=== PATIENT | female | born 1960 | race Caucasian/White ===

== ENCOUNTER 2023-01-11 07:43 | Day surgery (SDC) | payer BC, SELFPAY ==
[2023-01-11 08:13] VITALS: BP 158/75; PULSE 86; RESP 16; TEMP 36.1; O2SAT 95; BMI 33.3
[2023-01-11] MEDS: LACTATED RINGER'S SOLUTION 1,000 ML 50 ML IV (08:30)
[2023-01-11 09:06] VITALS: BP 94/54; PULSE 91; RESP 18; TEMP 36.6; O2SAT 96
--- NOTE | 2023-01-11 09:07 | OP_ITS ---
OPERATION DATE: ??01/11/2023 PREOPERATIVE DIAGNOSIS:? Colorectal screening. POSTOPERATIVE DIAGNOSIS:? Diverticulosis throughout the colon. PROCEDURE:? Colonoscopy to cecum. SURGEON:? Salazar Muniz M.D. ANESTHESIA:? Monitored anesthesia care. ESTIMATED BLOOD LOSS:? Zero. INDICATIONS AND CONSENT:? Patient is a 62-year-old female presents for colorectal screening.? Indications, risks, benefits, alternatives of proceeding with colonoscopy were explained extensively to the patient, including the risks of bleeding, colon perforation or anesthetic complications.? All of her questions were answered.? Informed consent was obtained. PROCEDURE:? Patient brought to the operating room, placed in the left lateral decubitus position.? Monitored anesthesia care was provided.? Rectal exam was performed which showed no masses or blood.? The scope was inserted into the anal canal.? Under direct visualization was advanced.? With the aid of abdominal compression, it was advanced to the cecum where cecal markings were clearly identified.? Upon withdrawal of the scope, mucosal surfaces were carefully examined. ?There was noted to be a good prep.? There were no mass lesions or polyps.? No inflammatory changes or ulcerations.? There was diverticulosis throughout the colon, including the right colon, more prominent in the sigmoid.? The scope was retroflexed in the anal canal.? There was no significant hemorrhoidal disease.? Scope was then withdrawn.? Patient tolerated procedure well, was sent to recovery room in good condition. f/u screening colonoscopy in 10 years. CC:? Patient?s family physician [facility]
[2023-01-11 09:21] VITALS: BP 117/63; PULSE 83; RESP 16; TEMP 36.3; O2SAT 96
[2023-01-11 09:36] VITALS: BP 120/60; PULSE 74; RESP 16; TEMP 36.4; O2SAT 97
== END 2023-01-11 09:53 | disposition home or self-care (01) ==
PROVIDERS: PCP Internal Medicine; Visit Provider Surgery
PROC: (CPT 45378; principal; 2023-01-11 09:00)
DX: Z12.11 Encounter for screening for malignant neoplasm of colon (principal); I10 Essential (primary) hypertension; E78.5 Hyperlipidemia, unspecified; Z80.0 Family history of malignant neoplasm of digestive organs; E11.9 Type 2 diabetes mellitus without complications; C50.911 Malignant neoplasm of unspecified site of right female breast; Z79.899 Other long term (current) drug therapy; K57.30 Diverticulosis of large intestine without perforation or abscess without bleeding
CPT/HCPCS: 45378; J2704

== ENCOUNTER 2023-01-26 12:39 | Emergency (ER) | payer BC, SELFPAY ==
[2023-01-26 12:45] VITALS: BP 154/80; PULSE 94; RESP 18; TEMP 36.6; O2SAT 97; BMI 33.0
--- NOTE | 2023-01-26 12:49 | XR_ITS ---
[address] [address] Patient Name: PRICE CACERES MRN: [id number] date: 1960 Sex: F Assigned Patient Location: ER Current Patient Location: ER Accession/Order Number: [id number] Exam Date: 01/26/2023 13:10 Report Date: 01/26/2023 13:37 At the request of: KOREY HIDALGO Procedure: XR ankle LT min 3V EXAM TYPE: XR ankle LT min 3V, XR foot LT min 3V EXAM DATE AND TIME: 01/26/2023 1:10 PM EDT INDICATION: Left lateral foot pain after inversion injury. COMPARISON: Radiographs of the left ankle 08/25/2020 TECHNIQUE: 3 views of the left ankle 3 views of the left foot FINDINGS: Fixation hardware distal tibia and fibula without evidence of hardware failure. Well-corticated calcifications adjacent to the medial malleolus. No ankle effusion. Achilles enthesophyte. Nondisplaced fracture base of the fifth metatarsal. Sclerosis osteophytosis with mild expansion head of the first metatarsal. Mild hallux valgus deformity. XR/XR ankle LT min 3V IMPRESSION: 1. Nondisplaced fracture base of the fifth metatarsal. 2. Hallux valgus deformity with bunion formation. Electronically authenticated by: RAMIREZ CRUM Date: 01/26/2023 13:37
--- NOTE | 2023-01-26 12:49 | XR_ITS ---
[address] [address] Patient Name: PRICE CACERES MRN: [id number] date: 1960 Sex: F Assigned Patient Location: ER Current Patient Location: ER Accession/Order Number: [id number] Exam Date: 01/26/2023 13:10 Report Date: 01/26/2023 13:37 At the request of: KOREY HIDALGO Procedure: XR foot LT min 3V EXAM TYPE: XR ankle LT min 3V, XR foot LT min 3V EXAM DATE AND TIME: 01/26/2023 1:10 PM EDT INDICATION: Left lateral foot pain after inversion injury. COMPARISON: Radiographs of the left ankle 08/25/2020 TECHNIQUE: 3 views of the left ankle 3 views of the left foot FINDINGS: Fixation hardware distal tibia and fibula without evidence of hardware failure. Well-corticated calcifications adjacent to the medial malleolus. No ankle effusion. Achilles enthesophyte. Nondisplaced fracture base of the fifth metatarsal. Sclerosis osteophytosis with mild expansion head of the first metatarsal. Mild hallux valgus deformity. XR/XR foot LT min 3V IMPRESSION: 1. Nondisplaced fracture base of the fifth metatarsal. 2. Hallux valgus deformity with bunion formation. Electronically authenticated by: RAMIREZ CRUM Date: 01/26/2023 13:37
--- NOTE | 2023-01-26 14:30 | ED.LOWEXI1 ---
HPI - Extremity Injury (Lower) General Chief Complaint: Extremity Injury, Lower Stated Complaint: LOWER EXTREMITY INJURY LEFT FOOT Time Seen by Provider: 01/26/23 12:47 Source: patient Mode of arrival: walk-in Limitations: no limitations History of Present Illness HPI Narrative: patient is a 62-year-old female who presents to the emergency department for the evaluation of an injury to the left foot. She inverted her left foot just prior to arrival and felt a pop over the left 5th metatarsal. She had no other associated injuries or falls. No medications taken prior to arrival. She does have a history of tibia-fibula fracture to the lower leg over a year ago that was surgically fixed with hardware. She denies any pain to the ankle or lower leg. Related Data Home Medications Medication Instructions Recorded Confirmed amlodipine 5 mg tablet 5 mg PO DAILY 01/11/23 01/11/23 atorvastatin 40 mg tablet 40 mg PO DAILY 01/11/23 01/11/23 benazepril 40 mg tablet 40 mg PO DAILY 01/11/23 01/11/23 hydrochlorothiazide 25 mg tablet 25 mg PO DAILY 01/11/23 01/11/23 letrozole 2.5 mg tablet 2.5 mg PO Q24H 01/11/23 01/11/23 Previous Rx's Medication Instructions Recorded hydrocodone 5 mg-acetaminophen 325 1 tab PO Q6H PRN pain #12 tabs 01/26/23 mg tablet Allergies Allergy/AdvReac Type Severity Reaction Status Date / Time Sulfa (Sulfonamide Allergy Hives Verified 01/02/23 11:32 Antibiotics) Review of Systems ROS Constitutional Denies: fever or chills Cardiovascular Denies: chest pain Respiratory Denies: shortness of breath or cough Gastrointestinal Denies: abdominal pain, nausea or vomiting Musculoskeletal Reports: extremity pain; Denies: back pain or neck pain Neurological Denies: headache PFSH PFSH Medical History (Updated 01/26/23 @ 14:13 by ASIA Lancaster) Surgical History (Updated 01/02/23 @ 11:53 by Alaina Granados NP) (06/04/19) (02/22/21) Family History (Updated 01/02/23 @ 11:49 by Alaina Granados NP) Other Family history of breast cancer Family history of colon cancer Family history of diabetes mellitus Family history of hypertension Family history of myocardial infarction Social History Within the past year, how often did you have a drink containing alcohol: monthly or less Smoking status: Never smoker Non-prescribed substance use: denies use Highest level of school completed/degree received: high school graduate Exam Narrative Exam Narrative: Gen.: Awake, alert, in no distress Head: Normocephalic, atraumatic ENT: Moist mucous membranes Respiratory: No respiratory distress Extremities: Moves extremities equally, tenderness and a small area of edema noted over the base of the left 5th metatarsal. Normal flexion and extension of the toes of the left foot. 2+ left DP pulse. No bony tenderness of the left ankle or tibia. Psych: Normal mood and affect Neuro: No focal neuro deficit Skin: Warm, dry, intact Constitutional Vital Signs, click to edit/add: Last Vital Signs Temp 97.8 F 01/26/23 12:45 Pulse 94 H 01/26/23 12:45 Resp 18 01/26/23 12:45 BP 154/80 H 01/26/23 12:45 Pulse Ox 97 01/26/23 12:45 O2 Del Method Room Air 01/26/23 12:45 Course Vital Signs Vital signs: Vital Signs Temperature 97.8 F 01/26/23 12:45 Pulse Rate 94 H 01/26/23 12:45 Respiratory Rate 18 01/26/23 12:45 Blood Pressure 154/80 H 01/26/23 12:45 Pulse Oximetry 97 01/26/23 12:45 Oxygen Delivery Method Room Air 01/26/23 12:45 Temperature 97.8 F 01/26/23 12:45 Pulse Rate 94 H 01/26/23 12:45 Respiratory Rate 18 01/26/23 12:45 Blood Pressure 154/80 H 01/26/23 12:45 Pulse Oximetry 97 01/26/23 12:45 Oxygen Delivery Method Room Air 01/26/23 12:45 MDM - Extremity Injury (Lower) MDM Narrative Medical decision making narrative: x-rays of the left foot and ankle show nondisplaced fracture at the base of the left 5th metatarsal. Patient placed in an [place] wrap and postop shoe. The fracture appears to be an avulsion, patient can be weightbearing as tolerated. She declined pain medication in the emergency department. She is neurovascularly intact pre-and post hardware application. Rest, ice, elevate. Follow-up with Dr. Aleman and return to the Emergency Room if symptoms change or worsen patient has a cane with her and has crutches at home. She was given a prescription of [place] as needed. Medical Records Attestation: I reviewed the patient's medical records. Discharge Plan Discharge Chief Complaint: Extremity Injury, Lower Clinical Impression: Closed fracture of fifth metatarsal bone of left foot Patient Disposition: Home, Self-Care Time of Disposition Decision: 14:08 Condition: Good Prescriptions / Home Meds: New hydrocodone-acetaminophen 5-325 mg tablet 1 tab PO Q6H PRN (Reason: pain) Qty: 12 0RF Rx Instructions: DX: S92.302A No Action atorvastatin 40 mg tablet 40 mg PO DAILY amlodipine 5 mg tablet 5 mg PO DAILY letrozole 2.5 mg tablet 2.5 mg PO Q24H benazepril 40 mg tablet 40 mg PO DAILY hydrochlorothiazide 25 mg tablet 25 mg PO DAILY Instructions: Foot Fracture in Adults (ED) Additional Instructions: Follow up with Dr. Aleman in 5-7 days Stand Alone Forms: Portal Instructions Referrals: Singh Crowley DO [Primary Care Provider] - 1 week Discharge Date/Time: 01/26/23 14:21
== END 2023-01-26 14:21 | disposition home or self-care (01) ==
PROVIDERS: Emergency Provider Emergency Medicine; PCP Internal Medicine
DX: S92.355A Nondisplaced fracture of fifth metatarsal bone, left foot, initial encounter for closed fracture (principal); X50.1XXA Overexertion from prolonged static or awkward postures, initial encounter; Z79.899 Other long term (current) drug therapy
CPT/HCPCS: 73610; 73630; 99283

== ENCOUNTER 2023-02-02 11:34 | Outpatient (OUT) | payer BC, SELFPAY ==
--- NOTE | 2023-02-02 11:57 | XR_ITS ---
The [address] [address] Patient Name: PRICE CACERES MRN: [id number] date: 1960 Sex: F Assigned Patient Location: [facility] Current Patient Location: Accession/Order Number: [id number] Exam Date: 02/02/2023 11:57 Report Date: 02/03/2023 06:33 At the request of: KANDY PAVON Procedure: XR foot LT min 3V EXAM: XR foot LT min 3V, XR ankle LT min 3V HISTORY: LEFT FOOT PAIN COMPARISON: 01/26/2023. TECHNIQUE: Routine views of the XR foot LT min 3V, XR ankle LT min 3V FINDINGS/ XR/XR foot LT min 3V IMPRESSION: 1. Slightly increased fracture lucency of the minimally displaced fifth metatarsal base likely avulsion fracture. No new fractures identified. Intact plate and screw fixation of the distal fibula with syndesmotic suture anchor as well as posterior malleolar fixation screw. Well-corticated ossific densities inferior to the medial malleolus, likely sequela prior injury. Normal mineralization. 2. Unremarkable soft tissues. 3. 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 Electronically authenticated by: OSVALDO GARZA Date: 02/03/2023 06:33
--- NOTE | 2023-02-02 11:57 | XR_ITS ---
The [address] [address] Patient Name: PRICE CACERES MRN: [id number] date: 1960 Sex: F Assigned Patient Location: [facility] Current Patient Location: Accession/Order Number: [id number] Exam Date: 02/02/2023 11:57 Report Date: 02/03/2023 06:33 At the request of: KANDY PAVON Procedure: XR ankle LT min 3V EXAM: XR foot LT min 3V, XR ankle LT min 3V HISTORY: LEFT FOOT PAIN COMPARISON: 01/26/2023. TECHNIQUE: Routine views of the XR foot LT min 3V, XR ankle LT min 3V FINDINGS/ XR/XR ankle LT min 3V IMPRESSION: 1. Slightly increased fracture lucency of the minimally displaced fifth metatarsal base likely avulsion fracture. No new fractures identified. Intact plate and screw fixation of the distal fibula with syndesmotic suture anchor as well as posterior malleolar fixation screw. Well-corticated ossific densities inferior to the medial malleolus, likely sequela prior injury. Normal mineralization. 2. Unremarkable soft tissues. 3. 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 Electronically authenticated by: OSVALDO GARZA Date: 02/03/2023 06:33
== END 2023-02-02 11:35 | disposition home or self-care (01) ==
LOC: RAD 11:34
PROVIDERS: PCP Internal Medicine; Visit Provider Physician Assistant
DX: M25.572 Pain in left ankle and joints of left foot (principal)
CPT/HCPCS: 73610; 73630

== ENCOUNTER 2023-02-28 09:06 | Outpatient (OUT) | payer BC, SELFPAY ==
--- NOTE | 2023-02-28 | XR_ITS ---
The [address] [address] Patient Name: PRICE CACERES MRN: [id number] date: 1960 Sex: F Assigned Patient Location: [facility] Current Patient Location: [facility] Accession/Order Number: [id number] Exam Date: 02/28/2023 09:21 Report Date: 02/28/2023 16:08 At the request of: SARINA BOLAÑOS Procedure: XR foot LT min 3V PROCEDURE: XR foot LT min 3V HISTORY: Left foot pain COMPARISON: XR foot left 02/02/2023 FINDINGS: BONES:Increased density nondisplaced fracture line at base of fifth metatarsal. Moderate marked degenerative changes the first metatarsophalangeal joint and mild bunion formation. SOFT TISSUES:No visible soft tissue swelling. EFFUSION:None visible. OTHER: Negative. XR/XR foot LT min 3V IMPRESSION: 1. Stable alignment and ongoing bone healing of base of fifth metatarsal fracture. 2. Moderate-marked degenerative changes of the first metatarsophalangeal joint favoring osteoarthritis. Electronically authenticated by: PABLO CHILD Date: 02/28/2023 16:08
== END 2023-02-28 09:07 | disposition home or self-care (01) ==
LOC: RAD 09:06
PROVIDERS: PCP Internal Medicine; Visit Provider Podiatrist Foot & Ankle Surgery
DX: S92.352A Displaced fracture of fifth metatarsal bone, left foot, initial encounter for closed fracture (principal)
CPT/HCPCS: 73630

== ENCOUNTER 2023-03-14 08:45 | Outpatient (OUT) | payer BC, SELFPAY ==
[2023-03-14 09:15] LABS: Estimated Average Glucose 146 mg/dL; Glycohemoglobin A1C 6.7 % (4.5-6.2)
== END 2023-03-14 08:46 | disposition home or self-care (01) ==
LOC: LAB 08:45
PROVIDERS: PCP Internal Medicine; Visit Provider Internal Medicine
DX: E11.65 Type 2 diabetes mellitus with hyperglycemia (principal)
CPT/HCPCS: 36415; 83036

== ENCOUNTER 2023-05-11 08:00 | Outpatient (OUT) | payer BC, SELFPAY ==
[2023-05-11] MEDS: COVID VAC 23-24(12UP)MODERNA/PF 50 MCG/0.5 ML VIAL IM (16:00)
== END 2023-05-11 08:01 | disposition home or self-care (01) ==
LOC: VACCLI 06-30 09:25
PROVIDERS: PCP Internal Medicine; Visit Provider Internal Medicine
DX: Z23 Encounter for immunization (principal)
CPT/HCPCS: 90480; 91322

== ENCOUNTER 2023-10-30 00:52 | Emergency (ER) | payer BC, MEDICARE, SELFPAY ==
--- OUTSIDE RECORDS SUMMARY | 2023-10-30 00:55 | XMS_ITS | CCD ---
Demographics Address [address] [place] [address] Mobile Preferred Language en Marital Status Unknown Zoroastrian Affiliation Unknown Race White Ethnic Group Not or Lati no Author Organization [facility] Care Team Providers Care Machine Sole Leveler Name Role Phone SINGH FOWLER Primary Care Physician MD Thiago Durbin Attending Provider [phone] DO Singh Fowler Primary Care Provider MD Daniel Lopes Referring Provider [phone] DO Singh Fowler Primary Care Provider MD Daniel Lopes Referring Provider Unavailable MD Chiara Hoffmann Attending Provider [phone] Vee Wadsworth Unavailable DO Singh Fowler Primary Care Provider MD Naga Acuna Attending Provider MD Daniel Lopes Referring Provider Unavailable MD Chiara Hoffmann Attending Provider [phone] DO Singh Fowler Primary Care Provider MD Daniel Lopes Referring Provider Unavailable MD Chiara Hoffmann Attending Provider [phone] Singh Fowler Unavailable Sydney Mayes Unavailable DR CHIARA HOFFMANN Attending Unavailable SHUN, DR CHIARA Monaco Admitting Unavailable KEO, DR WINTERS Primary Care Unavailable MATEUSZ, DR ANDREW Quintero Consulting Unavailable CANDE ., HARSHAD Attending Unavailable CANDE ., HARSHAD Admitting Unavailable KEO, DR WINTERS Primary Care Unavailable CANDE ., HARSHAD Consulting Unavailable CANDE ., HARSHAD Consulting Unavailable CANDE ., HARSHAD Attending Unavailable CANDE ., HARSHAD Admitting Unavailable KEO, DR WINTERS Primary Care Unavailable KLJOSH BARRIENTOS Consulting Unavailable KEO, DR WINTERS Primary Care Unavailable KEO, DR WINTERS Attending Unavailable REQUEST, DR JUAN DIEGO LISTED Consulting Unavaila ble KEO, DR WINTERS Admitting Unavailable BALL, DR WINTERS Consulting Unavailable BALL, DR WINTERS Attending Unavailable BALL, DR WINTERS Admitting Unavailable BALL, DR WINTERS Primary Care Unavailable ZIEBER, DR ANDREW Quintero Consulting Unavailable BALL, DR WINTERS Primary Care Unavailable BALL, DR WINTERS Consulting Unavailable BALL, DR WINTERS Attending Unavailable BALL, DR WINTERS Admitting Unavailable ZIEBER, DR ANDREW Quintero Consulting Unavailable SHUN, DR CHIARA Monaco Attending Unavailable SHUN, DR CHIARA Monaco Admitting Unavailable BALL, DR WINTERS Primary Care Unavailable SHUN, DR CHAIRA Monaco Consulting Unavailable BALL, DR WINTERS Primary Care Unavailable BALL, DR WINTERS Consulting Unavailable BALL, DR WINTERS Attending Unavailable BALL, DR WINTERS Admitting Unavailable WEST, DR JULIAN Mendez Consulting Unavailable ZIEBER, DR ANDREW Quintero Consulting Unavailable SHUN, DR CHIARA Mon[place] Consulting Unavailable BALL, DR WINTERS Primary Care Unavailable MISC, DR CODY Consulting Unavailable MISC, DR CODY Attending Unavailable MISC, DR CODY Admitting Unavailable ZIEBER, DR ANDREW Quintero Consulting Unavailable BALL, DR WINTERS Primary Care Unavailable HOY ., DR GARZA Consulting Unavailable HOY ., DR GARZA Attending Unavailable HOY ., DR GARZA Admitting Unavailable Keo, DO Winters Primary Care Provider [phone] MD Daniel Lopes Referring Provider Unavailable MD Chiara Hoffmann Attending Provider Salazar MUNIZ Attending Unavailable NILL, Salazar R Attending Unavailable Keo, DO Winters Primary Care Provider MD Daniel Lopes Referring Provider Unavailable MD Chiara Hoffmann Attending Provider Chiara Hoffmann Admitting Unavailable Shun, Chiara Attending Unavailable Keo, Singh Primary Care Unavailable Daniel Lopes Referring Unavailable Allergies Allergy Classification Reported Allergen(s) Allergy Type Date of Onset Reaction(s) Facility (2 sources) Sulfonamides (Antibiotic); Translations: [sulfa drugs] Drug allergy Eruption of skin (disorder) [facility] (7 sources) Sulfonamides (Antibiotic); Translations: [Sulfa (Sulfonamide Antibiotics)] Allergy to substance 10-21-19 Itching [facility] (1 source) sulfaSALAzine Drug Allergy Unknown [facility] Other (18 sources) Substance with sulfonamide structure and antibacterial mechanism of action (substance) Drug allergy Unknown [facility] Other (1 source) Sulfonamides (Antibiotic) Drug allergy (disorder) [facility] (1 source) Wheat preparation Drug Allergy 06-17-20 [facility] Medications Current Medications Medication Drug Class(es) Dates Sig (Normalized) Sig (Original) amLODIPine 5 mg oral tablet (20 sources) Dihydropyridine Calcium Channel Chalino Start: 01-11-2021 take 5 mg by mouth once daily Amlodipine Active 5 MG PO Daily March 10, 2021 11:00pm atorvastatin 40 mg oral tablet (20 sources) HMG-CoA Reductase Inhibitor Start: 01-11-2021 take 40 mg by mouth once daily Atorvastatin Active 40 MG PO Daily March 10, 2021 11:00pm benazepril hydrochloride 20 mg oral tablet (20 sources) Angiotensin Converting Enzyme Inhibitor Start: 01-11-2021 take 20 mg by mouth once daily Benazepril Active 20 MG PO Daily March 10, 2021 11:00pm take 1 tablet by prisca th every twenty-four hours Benazepril HCl 40 MG 1 tablet Orally Onc e a day Active Hyaluronic Up-Lzlwkeaky-Uoni (Radiaplexrx) Gel (6 sources) Start: 05-18-2021 Hyaluronic Na- Allantoin-Aloe (Radiaplexrx) Gel Active 1 APPLIC TOPICAL Three times daily May 18, 2021 9:12am Start: 05-18-2021 End: 12-28-2022 Hyaluronic Hx-Dtbxysvgp-Irzd (Radiaplexrx) Gel Discontinued 1 APPLIC TOPICAL Three times daily May 17, 2021 11:00pm December 28, 2022 8:29am Start: 05-18-2021 End: 12-28-2022 Hyaluronic Oh-Ikhlwhmox-Hcuw (Radiaplexrx) Gel Discontinued 1 APPLIC TOPICAL Three times daily May 18, 2021 12:00am December 28, 2022 9:29am Start: 05-18-2021 Hyaluronic Na- Allantoin-Aloe (Radiaplexrx) Gel Active 1 APPLIC TOPICAL Three times daily May 17, 2021 11:00pm Start: 05-18-2021 Hyaluronic Na- Allantoin-Aloe (Radiaplexrx) Gel Active 1 APPLIC TOPICAL Three times daily May 18, 2021 12:00am hydroCHLOROthiazide 25 mg oral tablet (20 sources) Thiazide Diuretic Start: 01-11-2021 take 25 mg by mouth once daily Hydrochlorothiazide Active 25 MG PO Daily March 10, 2021 11:00pm letrozole 2.5 mg oral tablet (20 sources) Aromatase Inhibitor Start: 07-20-2021 End: 12-28-2022 take 2.5 mg by mouth once daily Letrozole Active 2.5 MG PO Daily December 28, 2022 9:56am Multivitamin (Multiple Vitamin) Tablet (2 sources) Start: 12-28-2022 take 1 tablet by mouth once daily Multivitamin (Multiple Vitamin) Tablet Active 1 TAB PO Daily December 27, 2022 11:00pm Start: 12-28-2022 take 1 tablet by prisca th once daily Multivitamin (Multiple Vitamin) Tablet Active 1 TAB PO Daily December 28, 2022 12:00am Multivitamin preparation (10 sources) take 1 tablet by prisca th once daily Multi Vitamin - 1 tablet Orally Once a day Active Completed/Discontinued Medications Medication Drug Class(es) Dates Sig (Normalized) Sig (Original) anastrozole 1 mg oral tablet (12 sources) Aromatase Inhibitor Start: 07-12-2021 End: 07-20-2021 take 1 mg by mouth once daily Anastrozole Discontinued 1 MG PO Daily July 12, 2021 8:23am July 20, 2021 9:55am azithromycin 250 mg oral tablet (20 sources) Macrolide Antimicrobial Start: 09-16-2022 Azithromycin 250 MG as directed Orally daily for 5 days Feb, Not-Taking/PRN biotin 1 mg chewable tablet (20 sources) Start: 03-11-2021 End: 12-28-2022 take 1000 ug by mouth once daily Biotin Discontinued 1000 MCG PO Daily March 10, 2021 11:00pm December 28, 2022 8:29am Start: 01-11-2021 take 1 tablet by prisca th once daily biotin 1000 mcg oral tablet 1,000 mcg = 1 tab(s), Oral, Daily, # 30 tab(s), Refills(s) 0 Start Date: 01/11/21 Status: Ordered Biotin Not-Takin g/PRN Biotin Not-Takin g Biotin Active ibuprofen 800 mg oral tablet (5 sources) Nonsteroidal Anti-inflammatory Drug Start: 01-13-2022 End: 12-28-2022 take 800 mg by mouth every six hours Ibuprofen Discontinued 800 MG PO Q6H January 12, 2022 11:00pm December 28, 2022 8:29am 24 hr metFORMIN hydrochloride 500 mg extended release oral tablet (12 sources) Biguanide Start: 03-11-2021 End: 12-28-2022 take 500 mg by mouth twice daily Metformin Discontinued 500 MG PO Twice daily March 10, 2021 11:00pm December 28, 2022 8:29am Start: 01-11-2021 take 1 tablet by prisca th twice daily metformin 500 mg oral tablet 500 mg = 1 tab(s), Oral, BID, # 60 tab(s), Refills(s) 0 Start Date: 01/11/21 Status: Ordered take 1 tablet by prisca th every twenty-four hours metFORMIN HCl 500 MG 1 tablet with a meal Orally Once a day Active mometasone furoate 1 mg/ml topical cream (6 sources) Corticosteroid Start: 05-18-2021 End: 12-28-2022 Mometasone Discontinued 1 APPLIC TOPICAL Twice daily 60 May 17, 2021 11:00pm December 28, 2022 8:29am vitamin e 450 mg oral capsule (20 sources) Start: 07-20-2021 End: 12-28-2022 take 1000 [IU] by mouth once daily Vitamin E Discontinued 1000 UNIT PO Daily July 20, 2021 12:00am December 28, 2022 8:29am Start: 01-11-2021 vitamin E 400 International_Unit, Oral, Daily, Refills(s) 0 Start Date: 01/11/21 Status: Ordered Vitamin E Not-Alfonzo wallcae/PRN Vitamin E Not-Alfonzo wallace Vitamin E Active zinc oxide 0.1 mg/mg topical ointment (6 sources) Start: 05-31-2021 End: 12-28-2022 Zinc Oxide Discontinued 1 AP PLIC TOPICAL Three times daily 60 May 31, 2021 12:00am December 28, 2022 8:29am Problems Active Problems Problem Classification Problem Date Documented Date Episodic/Chronic Acute bronchitis (11 sources) Acute bronchitis; Translations: [Acute bronchitis due to other specified organisms] Episodic Cancer of breast (20 sources) Infiltrating lobular carcinoma of breast; Translations: [Malignant neoplasm of upper-inner quadrant of female breast] Onset: 12-09-2021 01-15-2021 Chronic Diabetes mellitus with complications (19 sources) Type 2 diabetes mellitus; Translations: [Type 2 diabetes mellitus with hyperglycemia] Chronic Diabetes mellitus without complication (2 sources) Type 2 diabetes mellitus without complication; Translations: [Type 2 diabetes mellitus without complications] 12-28-2022 Chronic Diabetes mellitus without complication (18 sources) Impaired fasting glycemia; Translations: [Impaired fasting glucose] Episodic Disorders of lipid metabolism (20 sources) Hypercholesterolemia; Translations: [Hyperlipidemia] 02-15-2021 Chronic Essential hypertension (20 sources) Hypertensive disorder; Translations: [Essential hypertension] 02-15-2021 Chronic Mycoses (18 sources) Tinea corporis; Translations: [Tinea corporis] Episodic Osteoarthritis (20 sources) Arthritis of right knee; Translations: [Unilateral primary osteoarthritis, right knee] Onset: 03-17-2022 Resolved: 03-17-2022 Chronic Other acquired deformities (18 sources) Joint contracture of the ankle and/or foot; Translations: [Contracture, left ankle] Chronic Other aftercare (4 sources) Drug therapy finding; Translations: [Encounter for therapeutic drug level monitoring] 01-13-2022 Episodic Other aftercare (5 sources) Encounter for therapeutic drug level monitoring; Translations: [Encounter for therapeutic drug monitoring] Onset: 06-29-2023 04-13-2022 Episodic Other aftercare (1 source) [facility] (current) use of aromatase inhibitors; Translations: [[facility]I (current) use of aromatase inhibitors] Onset: 06-29-2023 Episodic Other connective tissue disease (1 source) Plantar fasciitis 01-11-2021 Episodic Other connective tissue disease (17 sources) Plantar fascial fibromatosis; Translations: [Plantar fascial fibromatosis] Episodic Other connective tissue disease (1 source) Plantar fascial fibromatosis; Translations: [Plantar fasciitis, left] Episodic Other diseases of veins and lymphatics (10 sources) Peripheral venous insufficiency; Translations: [Venous insufficiency (chronic) (peripheral)] Episodic Other diseases of veins and lymphatics (2 sources) Venous insufficiency (chronic) (peripheral) Episodic Other lower respiratory disease (17 sources) Solitary nodule of lung; Translations: [Solitary pulmonary nodule] Episodic Other lower respiratory disease (6 sources) Solitary pulmonary nodule; Translations: [Solitary pulmonary nodule] Onset: 12-09-2021 Episodic Other lower respiratory disease (1 source) Nodule of lung; Translations: [Solitary pulmonary nodule] 12-28-2022 Episodic Other non-traumatic joint disorders (1 source) Disorder of ankle joint 01-11-2021 Episodic Other nutritional; endocrine; and metabolic disorders (18 sources) Obesity; Translations: [Obesity, unspecified] 01-11-2021 Chronic Other nutritional; endocrine; and metabolic disorders (10 sources) Body mass index 30+ - obesity; Translations: [Body mass index (BMI) 31.0-31.9, adult] Chronic Other nutritional; endocrine; and metabolic disorders (10 sources) Obesity caused by energy imbalance; Translations: [Other obesity due to excess calories] Chronic Other nutritional; endocrine; and metabolic disorders (2 sources) Other obesity due to excess calories Chronic Other nutritional; endocrine; and metabolic disorders (2 sources) Body mass index (BMI) 31.0-31.9, adult Chronic Other nutritional; endocrine; and metabolic disorders (1 source) Obesity, unspecified; Translations: [Mild obesity] Chronic Other screening for suspected conditions (not mental disorders or infectious disease) (14 sources) Patient encounter status; Translations: [Encounter for screening for osteoporosis] Onset: 01-25-2022 01-13-2022 Episodic Other upper respiratory disease (1 source) Seasonal allergy 01-11-2021 Chronic Other upper respiratory disease (18 sources) Allergic rhinitis due to pollen; Translations: [Allergic rhinitis due to pollen] Chronic Other upper respiratory infections (1 source) Acute maxillary sinusitis, unspecified Episodic Residual codes; unclassified (2 sources) Estrogen receptor positive status [ER+] Episodic Spondylosis; intervertebral disc disorders; other back problems (19 sources) Lumbosacral spondylosis with radiculopathy; Translations: [Other spondylosis with radiculopathy, lumbosacral region] 01-11-2021 Chronic Unclassified (1 source) Adenocarcinoma of breast 01-11-2021 Unclassified (1 source) Malignant neoplasm of upper-inner quadrant of right female breast; Translations: [Malignant neoplasm of upper-inner quadrant of right female breast] Onset: 06-29-2023 Past or Other Problems Problem Classification Problem Date Documented Da te Episodic/Chronic E Codes: Natural/environment (2 sources) Exposure to other specified factors, initial encounter; Translations: [Other and unspecified overexertion or strenuous movements or postures, initial encounter] Onset: 01-03-2022 Episodic Other aftercare (1 source) Other [facility] (current) drug therapy; Translations: [OTH LONGTERM CURRENT DRUG THERAPY] Onset: 02-28-2022 Episodic Other aftercare (1 source) [facility] (current) use of oral hypoglycemic drugs; Translations: [LONGTERM USE ORAL HYPOGLYCEMIC DX] Onset: 01-03-2022 Episodic Other connective tissue disease (3 sources) Pain in right finger(s); Translations: [PAIN IN RIGHT FINGERS] Onset: 01-02-2022 Episodic Other non-traumatic joint disorders (5 sources) Pain in right knee; Translations: [PAIN IN RIGHT KNEE] Onset: 02-26-2022 Resolved: 03-17-2022 Episodic Sprains and strains (2 sources) Strain of other muscle(s) and tendon(s) at lower leg level, right leg, initial encounter; Translations: [Unspecified sprain of right thumb, initial encounter] Onset: 01-03-2022 Episodic Unclassified (1 source) Encounter by telehealth for suspected COVID-19 Z20.822 Results Test Name Value Interpretation Reference Range Facility Outside Colonoscopyon 2022 Outside Colonoscopy [id number]#1.00C D:127 [facility] Reminderson 01-12-2023 Reminders - From: Palmira Mei LPN To: N - Clinical; Sent: 01/12/2023 14:47:17 EDT Show up: 12/11/2032 07:00:00 EDT Subject: colonoscopy recall Due Date/Time: 01/11/2033 07:00:00 EDT Reminder/Recall Patient due for screening colonoscopy 01/11/2033. [facility] Consultation Noteon 12-29-19 Consultation Note [id number] D:127 [facility] Pre-Certification Formon Pre-Certification Form [id number] D:127 [facility] Consent for Procedure/Surger yon 12-06-2022 Consent for Procedure/Surgery [id number] D:127 Normal [facility] Facesheeton 12-05-2022 Facesheet [id number]#1.00C D:127 Normal [facility] Ambulatory Visit Summaryon 0 12-02-2022 Ambulatory Visit Summary RENUKA CACERES :1960 Visit Date:12/02/2022 Ambulatory Visit Instructions Your Care Team Attending Physician - SANTOSH DUBOSE, Salazar Quintero Primary Care Physician - SINGH FOWLER DO This Is Your Medications List Contact prescribing physician if questions or concerns amlodipine (amLODIPine 5 mg Tab) atorvastatin (atorvastatin 40 mg Tab) benazepril (benazepril 20 mg Tab) hydrochlorothiazide (hydrochlorothiazide 25 mg oral tablet) letrozole (letrozole 2.5 mg Tab) Procedures Performed Re-excision of breast for clearance of tumor margins (02/22/2021), Ankle fracture (06/04/2019), section, Fine needle aspiration biopsy of breast using ultrasound (US) guidance, Lumpectomy of right breast, Tonsillectomy. Discharge Vitals Heart Rate (Peripheral) 76 Respiratory Rate 16 Blood Pressure 140/92 Height 170.1 cm Height 67 in Weight 90.1 kg Weight 198.22 lb BMI 31.14 Medications What How Much When Instructions Unchanged amlodipine (amLODIPine 5 mg Tab) 1 Tablets By Mouth Every day Contact prescribing physician if questions or concerns Unchanged atorvastatin (atorvastatin 40 mg Tab) 1 Tablets By Mouth Every day Contact prescribing physician if questions or concerns Unchanged benazepril (benazepril 20 mg Tab) 1 Tablets By Mouth Every day Contact prescribing physician if questions or concerns Unchanged hydrochlorothiazide (hydrochlorothiazide 25 mg oral tablet) 1 Tablets By Mouth Every day Contact prescribing physician if questions or concerns Unchanged letrozole (letrozole 2.5 mg Tab) 1 Tablets By Mouth Every day Contact prescribing physician if questions or concerns Allergies sulfa drugs (Rash) Problems Ongoing - Any problem that you are currently receiving treatment for. Adenocarcinoma of right breast BMI 31.0-31.9,adult Class 1 obesity due to excess calories in adult Hyperlipidemia Hypertension Lobular carcinoma of right breast Lumbosacral spondylosis with radiculopathy Pulmonary nodule, right Seasonal allergies Type 2 diabetes mellitus Historical - Any problem that you are no longer receiving treatment for. High cholesterol Hypertension Plantar fasciitis Syndesmotic disruption of left ankle Normal [facility] CT CHEST WO CONon 11-28-2022 CT CHEST WO CON EXAMINATION: CT CHES T WO CON HISTORY: Solitary nodule of lung ; history of breast cancer COMPARISON: CT chest 12/06/2021 TECHNIQUE: Axial, Coronal, and Sagittal images were created without the administration of IV contrast material. Dose reduction techniques were achieved by using automated exposure control and/or adjustment of mA and/or kV according to patient size and/or use of iterative reconstruction technique. FINDINGS: LUNGS: Stable appearance of a few tiny lung nodules, less than 5 mm in size. A few calcified nodules compatible with chronic granulomas within left lung, largest is 1 cm. PLEURA: No mass, effusion, or pneumothorax. VASCULATURE: No abnormality. NEO: No mass or adenopathy. MEDIASTINUM: No mass or adenopathy. CARDIAC: No enlargement or pericardial thickening. AORTA: No aneurysm or dissection. CHEST WALL: No mass or axillary adenopathy. BONES: No bone lesion or fracture. LIMITED ABDOMEN: No suspicious findings. Limited images of the upper abdomen. OTHER: Negative. IMPRESSION: 1. Stable appearance of the few small calcified and noncalcified nodules scattered within the lungs. No new nodules or overtly suspicious nodules. 2. No lymphadenopathy. Electronically authenticated by: ANDREW MORRIS Date: 2022-11-28 09:[address] [facility] [address] CHEST WO CON Neofect Other MG MAMM DIAGNOSTIC 3D OMKAR CA Don 11-28-2022 MG MAMM DIAGNOSTIC 3D OMKAR CAD Patient: RENUKA CACERES Exam Date: 11/28/2022 : 1960 Gender:F Ordering : [employer] Admission #: [id number] Family : DR SINGH FOWLER D.O. Order #: [id number] CLICK HERE TO VIEW EXAM RADIOLOGY REPORT PROCEDURE: MAMMOGRAM DIAGNOSTIC 3D BILATERAL CAD COMPARISON: MG MAMM DIAGNOSTIC 3D OMKAR CAD, 12/06/2021. MG BREAST SPECIMEN, 01/29/2021. MAMMO POST HOOKWIRE RIGHT, 01/29/2021. MG BREAST LOCAL MAMM GUIDE RT, 01/29/2021. INDICATIONS: Primary malignant neoplasm of female right breast Calculator Name NCI Breast Cancer Risk Assessment Tool 5 Year Breast Cancer Risk 3.00% Lifetime Breast Cancer Risk 11.60% Personal Breast Cancer No Personal Ovarian Cancer No Treatments None Family Cancers Aunt-paternal with breast cancer at age 60; Father with colon/kidney cancer at age 40. LOCATION: [facility] BREAST COMPOSITION: Heterogeneously dense,which may obscure small masses. FINDINGS: DIAGNOSTIC CATEGORY 2--BENIGN FINDING: RIGHT BREAST: Stable architectural distortion consistent with postsurgical scarring within upper inner quadrant posterior breast. No significant change has occurred. LEFT BREAST: No significant suspicious finding. No significant change has occurred. RECOMMENDATIONS: ROUTINE MAMMOGRAM AND CLINICAL EVALUATION IN 12 MONTHS. PLEASE NOTE: A NORMAL MAMMOGRAM DOES NOT EXCLUDE THE POSSIBILITY OF BREAST CANCER. A CLINICALLY SUSPICIOUS PALPABLE LUMP SHOULD BE BIOPSIED. Dictated by: Andrew Morris M.D. on 11/28/2022 at 09:36 Approved by: Andrew Morris M.D. on 11/28/2022 at 09:41 Normal [facility] Physician Referralon 023 Physician Referral [id number] D:127 Normal [facility] Physician Referralon 023 Physician Referral [id number] D:127 Normal [facility] CBC AUTO DIFFon 09-27-2022 BASO # 0.0 103/ul Normal 0.0-0.1 [facility] Comment on above: Performed By: #### C BC ####[facility] [address] [place], [place] [address]Qi. Marysol Peace Basophils/100 WBC (Bld) 0.2 % Normal 0.2-2.0 [facility] Comment on above: Performed By: #### C BC ####[facility] [address] [place], [place] [address]WkLyubov Peace EO # 0.2 103/ul Normal 0.0-0.7 [facility] Comment on above: Performed By: #### C BC ####[facility] [address] [place] [id number]. Marysol Peace Eosinophils/100 WBC (Bld) 1.3 % Normal 0.9-7.0 [facility] Comment on above: Performed By: #### C BC ####[facility] [id number] [place] [address]Dr. Marysol Peace Erythrocyte distribution width (RBC) [Ratio] 13.0 % Normal 11.0-15.0 [facility] Comment on above: Performed By: #### C BC ####[facility] [address] [place], [place] [address]Dr. Marysol Peace Hematocrit (Bld) [Volume fraction] 46.6 % Normal 36.0-48.0 [facility] Comment on above: Performed By: #### C BC ####[facility] [address] [place], [place] [address]Dr. Marysol Peace Hemoglobin (Bld) [Mass/Vol] 15.7 g/dL Normal 12.0-16.0 [facility] Comment on above: Performed By: #### C BC ####[facility] [address] [place], [place] [address]Dr. Marysol Peace IG # 0.04 10e3/ul Critically high 0.00-0.03 [facility] Comment on above: Performed By: #### C BC ####[facility] [address] [place], [place] [address]Dr. Marysol Peace IG % 0.3 % Normal 0.0-0.5 [facility] Comment on above: Performed By: #### C BC ####[facility] [address] [place], [place] [address]Dr. Marysol Peace LYMPH # 0.5 103/ul Critically low 1.2-3.8 [facility] Comment on above: Performed By: #### C BC ####[facility] [address] [place], [place] [address]Dr. Marysol Peace Lymphocytes/100 WBC (Bld) 3.8 % Critically low 20.5-60.0 [facility] Comment on above: Performed By: #### C BC ####[facility] [address] [place] [id number]. Marysol Peace MANUAL DIFF REQ NO Normal [facility] Comment on above: Performed By: #### C BC ####[facility] Igijettofx[address] [id number]. Marysol Peace MCH (RBC) [Entitic mass] 29.2 pg Normal 26.7-34.0 [facility] Comment on above: Performed By: #### C BC ####[facility] Khfqvpwrjq98[address] [place] [place] [id number]. Marysol Peace MCHC (RBC) [Mass/Vol] 33.7 g/dL Normal 29.9-35.2 [facility] Comment on above: Performed By: #### C BC ####[facility] Nychlinxcn[address] [place], [place] [address]Dr. Marysol Peace MCV (RBC) [Entitic vol] 86.6 fL Normal 81.0-99.0 [facility] Comment on above: Performed By: #### C BC ####[facility] Hevmnysuko[address] [place], [place] [id number]. Marysol Peace MONO # 0.3 103/ul Normal 0.3-0.8 [facility] Comment on above: Performed By: #### C BC ####[facility] Pqhfuucele[address] [place], [place] [id number]. Marysol Peace Monocytes/100 WBC (Bld) 2.8 % Normal 1.7-12.0 The [facility] Comment on above: Performed By: #### C BC ####[facility] Cokeyrvaov[address] [place], [place] [id number]. Marysol Peace NEUT # 10.7 103/ul Critically high 1.4-6.5 The [facility] Comment on above: Performed By: #### C BC ####[facility] Akiphxrxmu[address] [place], [place] [id number]. Marysol Peace Neutrophils/100 WBC (Bld) 91.6 % Critically high 43.0-75.0 [facility] Comment on above: Performed By: #### C BC ####[facility] J[address]xyfspxi[address] [place] [place] [id number]. Marysol Peace Platelet mean volume (Bld) [Entitic vol] 11.0 fL Normal 9.5-13.5 [facility] Comment on above: Performed By: #### C BC ####[facility] Adrbecjwuc[address] [place] [place] [id number]. Marysol Peace PLT 192 103/ul Normal 150-450 [facility] Comment on above: Performed By: #### C BC ####[facility] Gbrhyuzabc6302 [address] [place] [id number]. Marysol Peace RBC 5.38 106/ul Normal 4.20-5.40 [facility] Comment on above: Performed By: #### C BC ####[facility] V[address]vyye[address] [place] [address]Dr. Marysol Peace WBC 11.7 103/ul Critically high 4.0-11.0 [facility] [place] [facility] Comment on above: Performed By: #### C BC ####[facility] Udbfuuzbmc14[address] [place] [id number]. Marysol Peace GLYCOHEMOGLOBIN A1Con 2022 ADA RECOMMENDATION SEE BELOW Normal [facility] Comment on above: Result Comment: ADA RECOMMENDED LIMIT 4.0 - 6.0 ADA THERAPEUTIC TARGET < 7.0 ACTION SUGGESTED > 7.0 Performed By: #### A 1C ####[facility] Whmzjxcguz[address] [place], [place] [address]Dr. Marysol Peace Glucose [Mass/Vol] 154 mg/dL Normal [facility] Comment on above: Performed By: #### A 1C ####[facility] Vxdmfkgpjj4[address] [place] [id number]. Marysol Peace HbA1c (Bld) [Mass fraction] 7.0 % Critically high 4.5-6.2 [facility] Comment on above: Performed By: #### A 1C ####[facility] Igoklnjggh[address] [place], [place] [address]DrLyubov Marysol Peace LIPID PROFILEon 09-27-2022 CHOL-HDL RATIO NORM SEE BELOW Normal [facility] Comment on above: Result Comment: 3.3 - 4.4 LOW RISK 4.4 - 7.1 AVERAGE RISK 7.1 - 11.0 MODERATE RISK >11.0 HIGH RISK Performed By: #### L IPID, CMP, TSH ####[facility] Z[address]wuvnsx[address] [place], [place] [address]Nw. Piedadbre Peace Cholesterol [Mass/Vol] 136 mg/dL Normal <=200 [facility] Comment on above: Performed By: #### L IPID, CMP, TSH ####[facility] Gphygtrtsp[address] [place] [phone]. Marysol Peace Cholesterol in HDL [Mass/Vol] 36 mg/dL Critically low 40-60 [facility] Comment on above: Performed By: #### L IPID, CMP, TSH ####[facility] Llmerenzhp[address]165 [place] [phone]. Marysol Peace Cholesterol in LDL [Mass/Vol] 66.2 mg/dL Normal [facility] Comment on above: Performed By: #### L IPID, CMP, TSH ####[facility] Foefhdqqfg26[address] [place] [phone]. Marysol Peace Cholesterol.total/C holesterol in HDL [Mass ratio] 3.8 {ratio} Normal [facility] Comment on above: Performed By: #### L IPID, CMP, TSH ####[facility] Hmhgvvguvp22[address] [place] [phone]. Marysol Peace HDL NORMAL > or = 60 mg/dl - LO W CARDIOVASCULAR RISK <40 mg/dl - HIGH CARDIOVASCULAR RISK Normal [facility] Comment on above: Performed By: #### L IPID, CMP, TSH ####[facility] Qustrrqucu04[address] [place] [phone]. Marysol Peace LDL CALC NORMAL SEE BELOW Normal [facility] Comment on above: Result Comment: <100 mg/dl OPTIMAL 100 - 129 mg/dl NEAR OR ABOVE OPTIMAL 130 - 159 mg/dl BORDERLINE HIGH 160 - 189 mg/dl HIGH >190 mg/dl VERY HIGH Performed By: #### L IPID, CMP, TSH ####[facility] Pjrrqztwhe[address] [place] [phone]. Marysol Peace Triglyceride [Mass/Vol] 169 mg/dL Critically high <=150 [facility] Comment on above: Performed By: #### L IPID, CMP, TSH ####[facility] Tsynqspcul[address] [place] [address]Dr. Marysol Peace VLDL CALC 33.8 mg/dL Normal [facility] Comment on above: Performed By: #### L IPID, CMP, TSH ####[facility] Lxozbjlacs[address] [place] [address]Dr. Marysol Peace PROF 14(COMP METB)on 023 Albumin [Mass/Vol] 3.9 g/dL Normal 3.4-5.0 The [facility] Comment on above: Performed By: #### L IPID, CMP, TSH ####[facility] Tawptbldjb[address] [place] [address]Dr. Marysol Peace Albumin/Globulin [Mass ratio] 1.1 {ratio} Normal [facility] Comment on above: Performed By: #### L IPID, CMP, TSH ####[facility] Jcq[address]akycqm[address] [place] [address]Dr. Marysol Peace ALP [Catalytic activity/Vol] 92 U/L Normal 46-116 [facility] Comment on above: Performed By: #### L IPID, CMP, TSH ####[facility] [address]qeevmphs[address] [place] [address]Dr. Marysol Peace ALT [Catalytic activity/Vol] 29 U/L Normal 14-59 [facility] Comment on above: Performed By: #### L IPID, CMP, TSH ####[facility] Ziqyyixgij5[address] [place] [address]Dr. Marysol Peace Anion gap [Moles/Vol] 12.2 mmol/L Normal [facility] Comment on above: Performed By: #### L IPID, CMP, TSH ####[facility] Ydtqwtyqne[address] [place] [address]Dr. Marysol Peace AST [Catalytic activity/Vol] 20 U/L Normal 15-37 [facility] Comment on above: Performed By: #### L IPID, CMP, TSH ####[facility] Dwqsnfdjsx[address] [place] [address]Dr. Marysol Peace Bilirubin [Mass/Vol] 0.5 mg/dL Normal 0.2-1.0 [facility] Comment on above: Performed By: #### L IPID, CMP, TSH ####[facility] W[address]hmqvvo5[address] [place] [address]Dr. Marysol Peace Calcium [Mass/Vol] 8.9 mg/dL Normal 8.5-10.1 [facility] Comment on above: Performed By: #### L IPID, CMP, TSH ####[facility] Kyelcooiwq[address] [place], [place] [address]Dr. Marysol Peace Chloride [Moles/Vol] 102 mmol/L Normal 98-107 [facility] Comment on above: Performed By: #### L IPID, CMP, TSH ####[facility] Gsgvkzavnk[address] [place], [place] [address]Dr. Marysol Peace CO2 [Moles/Vol] 25.6 mmol/L Normal 21.0-32.0 The [facility] Comment on above: Performed By: #### L IPID, CMP, TSH ####[facility] Rjsfohpafv[address] [place], [place] [address]Dr. Marysol Peace Creatinine [Mass/Vol] 0.61 mg/dL Normal 0.55-1.02 [facility] Comment on above: Performed By: #### L IPID, CMP, TSH ####[facility] Fdtbswivkm[address] [place] [address]Dr. Marysol Peace EGFR-AF SOUTH [place]UDANESE >60 Normal >=60 [facility] Comment on above: Performed By: #### L IPID, CMP, TSH ####[facility] Sbhshyqchi[address] [place], [place] [address]Dr. Marysol Peace EGFR-NON AF [place] >60 Normal >=60 [facility] Comment on above: Performed By: #### L IPID, CMP, TSH ####[facility] Npkpvsewst[address] [place], [place] [address]Dr. Marysol Peace Globulin (S) [Mass/Vol] 3.4 g/dL Normal [facility] Comment on above: Performed By: #### L IPID, CMP, TSH ####[facility] [address]wps[address] [place] [address]Dr. Marysol Peace Glucose [Mass/Vol] 149 mg/dL Critically high 74-106 [facility] Comment on above: Performed By: #### L IPID, CMP, TSH ####[facility] Roihyochxf[address] [place] [address]Dr. Marysol Peace Potassium [Moles/Vol] 3.8 mmol/L Normal 3.5-5.1 [facility] Comment on above: Performed By: #### L IPID, CMP, TSH ####[facility] Qxozxidmra35[address] [place] [address]Dr. Marysol Peace Protein [Mass/Vol] 7.3 g/dL Normal 6.4-8.2 [facility] Comment on above: Performed By: #### L IPID, CMP, TSH ####[facility] L[address]jvtprl6[address] [place] [address]Dr. Marysol Peace Sodium [Moles/Vol] 136 mmol/L Normal 136-145 [facility] Comment on above: Performed By: #### L IPID, CMP, TSH ####[facility] Bnwrmbbhik[address] [place] [address]Dr. Marysol Peace Urea nitrogen [Mass/Vol] 26.0 mg/dL Critically high 7.0-18.0 The [facility] Comment on above: Performed By: #### L IPID, CMP, TSH ####[facility] Lhngzpeqzr4[address] [place] [address]Dr. Marysol Peace Urea nitrogen/Creatinine [Mass ratio] 42.6 mg/mg Normal [facility] Comment on above: Performed By: #### L IPID, CMP, TSH ####[facility] Jyfaomplmq[address] [place] [address]Dr. Piedadbre Peace TSHon 09-27-2022 TSH 1.298 uIU/mL Normal 0.358-3.740 [facility] Comment on above: Performed By: #### L IPID, CMP, TSH ####[facility] [address]ax[address]ad[address] [place], [place] [address]JxDr. Marysol Peace CAITLYN - TSHon 05-02-2022 TSH 2.031 uIU/mL Normal 0.358-3.740 [facility] Comment on above: Performed By: #### D ATTSH #### [facility] [address] [address] [address] Marysol Peace TSH RANGE SEE BELOW Normal [facility] Comment on above: Result Comment: <0.3 4 UIU/ml HYPERTHYROID 0.34-5.60 UIU/ml EUTHYROID >5.60 UIU/ml HYPOTHYROID Performed By: #### D ATTSH #### [facility] [address] [address] [address] Marysol Peace GLYCOHEMOGLOBIN A1Con 2021 ADA RECOMMENDATION SEE BELOW Normal [facility] Comment on above: Result Comment: ADA RECOMMENDED LIMIT 4.0 - 6.0 ADA THERAPEUTIC TARGET < 7.0 ACTION SUGGESTED > 7.0 Performed By: #### D ATA1C #### [facility] [address] [address] [address] Marysol Peace Glucose [Mass/Vol] 151 mg/dL Normal [facility] Comment on above: Performed By: #### D ATA1C #### [facility] [address] [address] [address] Marysol Peace HbA1c (Bld) [Mass fraction] 6.9 % Critically high 4.5-6.2 [facility] Comment on above: Performed By: #### D ATA1C #### [facility] [address] [address] [address] Marysol Peace XR KNEE RT 4V or >on 022 XR KNEE RT 4V or > RIGHT KNEE FOUR VIEW S: 02/26/2022 4:09 PM EDT Clinical Data: C/O: a pain. Pain for over a week. No injury Comparison: No previous No evidence of acute fracture or dislocation. No obvious knee joint effusion. The width of the lateral compartment is preserved. Medial compartment width is modestly reduced. Mild spurring at the medial compartment. Minimal sessile spurring at the anterior compartment. IMPRESSION: 1. No evidence of acute osseous process. See report for details. Electronically authenticated by: JOSH COOK Date: 2022-02-26 16:36 Normal [facility] XR DEXA BONE DENSITYon 01-18 XR DEXA BONE DENSITY EXAMINATION: XR DEXA BONE DENSITY, 01/18/2022 8:44 AM EDT HISTORY: Primary malignant neoplasm of female right breast COMPARISON: None. TECHNIQUE: Dual-energy X-ray absorptiometry (DEXA) bone density study performed for the axial skeleton. FINDINGS: SPINE ANALYSIS: Average bone mineral density is 1.216 g/cm2. T-score (standard deviation relative to young adult mean): 0.3 . HIP ANALYSIS: Lowest bone mineral density is within the right femoral neck, 1.078 g/cm2. T-score (standard deviation relative to young adult mean): 0.3 . IMPRESSION: World [employer] Classification: Normal - Low Fracture Risk Electronically authenticated by: ANDREW MORRIS Date: 2022-01-18 16:32 Normal [facility] CBC AUTO DIFFon 12-06-2021 BASO # 0.0 103/ul Normal 0.0-0.1 [facility] Comment on above: Performed By: #### C BC ####[facility] V[address]rymzt[address] [place], [place] [address]Dr. Yilan Peace Basophils/100 WBC (Bld) 0.4 % Normal 0.2-2.0 [facility] Comment on above: Performed By: #### C BC ####[facility] C[address]ytppen[address] [place] [address]Dr. Yilan Peace EO # 0.2 103/ul Normal 0.0-0.7 [facility] Comment on above: Performed By: #### C BC ####[facility] [address]qclsy[address] [place] [address]Dr. Yilan Peace Eosinophils/100 WBC (Bld) 2.4 % Normal 0.9-7.0 [facility] Comment on above: Performed By: #### C BC ####[facility] Hzqfhfntlc27[address] [place] [id number]. Marysol Peace Erythrocyte distribution width (RBC) [Ratio] 12.5 % Normal 11.0-15.0 [facility] Comment on above: Performed By: #### C BC ####[facility] Bslqcel[address] [place] [id number]. Marysol Peace Hematocrit (Bld) [Volume fraction] 45.6 % Normal 36.0-48.0 [facility] Comment on above: Performed By: #### C BC ####[facility] Forbyauaxb[address] [place], [place] [address]Dr. Marysol Peace Hemoglobin (Bld) [Mass/Vol] 15.3 g/dL Normal 12.0-16.0 [facility] Comment on above: Performed By: #### C BC ####[facility] Qytpdmdquj[address] [place], [place] [address]Dr. Marysol Peace IG # 0.03 10e3/ul Normal 0.00-0.03 [facility] Comment on above: Performed By: #### C BC ####[facility] Ksvmfogbnv[address] [place], [place] [address]Dr. Marysol Peace IG % 0.4 % Normal 0.0-0.5 [facility] Comment on above: Performed By: #### C BC ####[facility] Isjofbstsa[address] [place], [place] [address]Dr. Marysol Peace LYMPH # 1.4 103/ul Normal 1.2-3.8 [facility] Comment on above: Performed By: #### C BC ####[facility] Ywozzpqdjv[address] [place], [place] [address]Dr. Marysol Peace Lymphocytes/100 WBC (Bld) 19.9 % Critically low 20.5-60.0 [facility] Comment on above: Performed By: #### C BC ####[facility] Lwklalcmoz[address] [place], [place] [address]Dr. Marysol Peace MANUAL DIFF REQ NO Normal [facility] Comment on above: Performed By: #### C BC ####[facility] [address] [place] [address]Ia. Marysol Peace MCH (RBC) [Entitic mass] 29.5 pg Normal 26.7-34.0 [facility] Comment on above: Performed By: #### C BC ####[facility] [address]wk[address] [place] [address]Dr. Marysol Peace MCHC (RBC) [Mass/Vol] 33.6 g/dL Normal 29.9-35.2 [facility] Comment on above: Performed By: #### C BC ####[facility] Yjihnmakab[address] [place], [place] [address]Dr. Marysol Peace MCV (RBC) [Entitic vol] 87.9 fL Normal 81.0-99.0 [facility] Comment on above: Performed By: #### C BC ####[facility] Jklsapjpeb[address] [place], [place] [address]Dr. Marysol Kobi MONO # 0.8 103/ul Normal 0.3-0.8 [facility] Comment on above: Performed By: #### C BC ####[facility] Hexwasxfnk[address] [place], [place] [address]Dr. Marysol Kobi Monocytes/100 WBC (Bld) 11.8 % Normal 1.7-12.0 [facility] Comment on above: Performed By: #### C BC ####[facility] Siraykpqvy[address] [place], [place] [address]Dr. Marysol Peace NEUT # 4.4 103/ul Normal 1.4-6.5 [facility] Comment on above: Performed By: #### C BC ####[facility] Jivfnitjnd[address] [place], [place] [address]Dr. Marysol Kobi Neutrophils/100 WBC (Bld) 65.1 % Normal 43.0-75.0 [facility] Comment on above: Performed By: #### C BC ####[facility] Hdfpebogvs[address] [place], [place] [address]Dr. Marysol Kobi Platelet mean volume (Bld) [Entitic vol] 10.9 fL Normal 9.5-13.5 [facility] Comment on above: Performed By: #### C BC ####[facility] Unfdwmgopk9[address] [place], [place] [address]Di. Marysol Peace PLT 187 103/ul Normal 150-450 [facility] Comment on above: Performed By: #### C BC ####[facility] Xvhwqdkpmc1554 [place], [place] [address]Ug. Marysol Peace RBC 5.19 106/ul Normal 4.20-5.40 [facility] Comment on above: Performed By: #### C BC ####[facility] Izubigidih9252 [place], [place] [address]Rd. Marysol Peace WBC 6.8 103/ul Normal 4.0-11.0 [facility] Comment on above: Performed By: #### C BC ####[facility] Qyweocfeua7937 [place], [place] [address]My. Marysol [address] CT CHEST WO CONon 12-06-2021 CT CHEST WO CON EXAMINATION: CT CHES T WO CON HISTORY: Solitary nodule of lung COMPARISON: 09/02/2021 TECHNIQUE: Multi-planar CT images were created with IV contrast. Axial, Coronal, and Sagittal images. Dose reduction techniques were achieved by using automated exposure control and/or adjustment of mA and/or kV according to patient size and/or use of iterative reconstruction technique. FINDINGS: LUNGS: Bilateral solid subcentimeter calcified and noncalcified solid pulmonary nodules stable both in number and size from the previous exam. Additional area of groundglass attenuation noted along the anterior lateral right upper lobe, overall decreased from the prior exam less solid in appearance on the current exam. No new pulmonary nodule or mass. PLEURA: No mass, effusion, or pneumothorax. VASCULATURE: No abnormality. NEO: No mass or adenopathy. MEDIASTINUM: No mass or adenopathy. CARDIAC: No enlargement or pericardial effusion. Mild coronary atherosclerosis AORTA: No aortic aneurysm. Mild atherosclerosis. CHEST WALL: No mass or axillary adenopathy. BONES: No bone lesion or fracture. LIMITED ABDOMEN: No suspicious findings. Limited images of the upper abdomen. OTHER: Negative. IMPRESSION: Significant interval decrease in semisolid/ground glass infiltrates in the right upper lobe Stable bilateral subcentimeter pulmonary nodules Electronically authenticated by: JULIAN SLAUGHTER Date: 2021-12-06 11:39 Normal [facility] GLYCOHEMOGLOBIN A1Con 2021 ADA RECOMMENDATION SEE BELOW Normal [facility] Comment on above: Result Comment: ADA RECOMMENDED LIMIT 4.0 - 6.0 ADA THERAPEUTIC TARGET < 7.0 ACTION SUGGESTED > 7.0 Performed By: #### A 1C ####[facility] Ymobqlnxty5516 [place], [place] [address]YqDr. Marysol Peace Glucose [Mass/Vol] 137 mg/dL Normal [facility] Comment on above: Performed By: #### A 1C ####[facility] Bxbrzqadar39[address] [place], [place] [address]WjLyubov Peace HbA1c (Bld) [Mass fraction] 6.4 % Critically high 4.5-6.2 [facility] Comment on above: Performed By: #### A 1C ####[facility] [address]tkts[address]su[address] [place] [id number] Peace LIPID PROFILEon 12-06-2021 CHOL-HDL RATIO NORM SEE BELOW Normal [facility] Comment on above: Result Comment: 3.3 - 4.4 LOW RISK 4.4 - 7.1 AVERAGE RISK 7.1 - 11.0 MODERATE RISK >11.0 HIGH RISK Performed By: #### C MP, TSH, LIPID #### [facility] [address] [address] [address] Marysol Peace Cholesterol [Mass/Vol] 154 mg/dL Normal <=200 [facility] Comment on above: Performed By: #### C MP, TSH, LIPID #### [facility] [address] [address] [address] Marysol Peace Cholesterol in HDL [Mass/Vol] 33 mg/dL Critically low 40-60 [facility] Comment on above: Performed By: #### C MP, TSH, LIPID #### [facility] [address] [address] [address] Marysol Peace Cholesterol in LDL [Mass/Vol] 77.8 mg/dL Normal [facility] Comment on above: Performed By: #### C MP, TSH, LIPID #### [facility] [address] [address] [address] Marysol Peace Cholesterol.total/C holesterol in HDL [Mass ratio] 4.7 {ratio} Normal [facility] Comment on above: Performed By: #### C MP, TSH, LIPID #### [facility] [address] [address] [address] Marysol Peace HDL NORMAL > or = 60 mg/dl - LO W CARDIOVASCULAR RISK <40 mg/dl - HIGH CARDIOVASCULAR RISK Normal [facility] Comment on above: Performed By: #### C MP, TSH, LIPID #### [facility] [address] [address] [address] Marysol Peace LDL CALC NORMAL SEE BELOW Normal [facility] Comment on above: Result Comment: <100 mg/dl OPTIMAL 100 - 129 mg/dl NEAR OR ABOVE OPTIMAL 130 - 159 mg/dl BORDERLINE HIGH 160 - 189 mg/dl HIGH >190 mg/dl VERY HIGH Performed By: #### C MP, TSH, LIPID #### [facility] [address] [address] [address] Marysol Peace Triglyceride [Mass/Vol] 216 mg/dL Critically high <=150 [facility] Comment on above: Performed By: #### C MP, TSH, LIPID #### [facility] [address] [address] [address] Marysol Peace VLDL CALC 43.2 mg/dL Normal [facility] Comment on above: Performed By: #### C MP, TSH, LIPID #### [facility] [address] [address] [address] Marysol Peace MG MAMM DIAGNOSTIC 3D OMKAR CA Don 12-06-2021 MG MAMM DIAGNOSTIC 3D OMKAR CAD Patient: RENUKA CACERES Exam Date: 12/06/2021 : 1960 Gender:F Ordering : DR SINGH FOWLER D.O. Admission #: [id number] Family : Order #: [id number] CLICK HERE TO VIEW EXAM RADIOLOGY REPORT PROCEDURE: MAMMOGRAM DIAGNOSTIC 3D BILATERAL CAD COMPARISON: MG STEREO CORE NDL W CLIP RT, 12/22/2020. MG MAMM SCREEN 3D OMKAR CAD, 12/04/2020. MG MAMM SCREEN OMKAR W CAD, 12/02/2019. MG BREAST LOCAL MAMM GUIDE RT, 01/29/2021. INDICATIONS: Primary malignant neoplasm of female right breast Calculator Name NCI Breast Cancer Risk Assessment Tool 5 Year Breast Cancer Risk 2.90% Lifetime Breast Cancer Risk 11.90% Personal Breast Cancer No Personal Ovarian Cancer No Treatments None Family Cancers Aunt-paternal with breast cancer at age 60; Father with colon/kidney cancer at age 40. LOCATION: [facility] BREAST COMPOSITION: Heterogeneously dense,which may obscure small masses. FINDINGS: DIAGNOSTIC CATEGORY 2--BENIGN FINDING: RIGHT BREAST: No significant suspicious finding. Postsurgical changes/scarring within upper inner quadrant. LEFT BREAST: No significant suspicious finding. No significant change has occurred. RECOMMENDATIONS: ROUTINE MAMMOGRAM AND CLINICAL EVALUATION IN 12 MONTHS. PLEASE NOTE: A NORMAL MAMMOGRAM DOES NOT EXCLUDE THE POSSIBILITY OF BREAST CANCER. A CLINICALLY SUSPICIOUS PALPABLE LUMP SHOULD BE BIOPSIED. Dictated by: Andrew Morris M.D. on 12/06/2021 at 10:45 Approved by: Andrew Morris M.D. on 12/06/2021 at 10:49 Normal [facility] PROF 14(COMP METB)on 022 Albumin [Mass/Vol] 4.0 g/dL Normal 3.4-5.0 [facility] Comment on above: Performed By: #### C MP, TSH, LIPID #### [facility] [address] [place] [address] Dr. Marysol Peace Albumin/Globulin [Mass ratio] 1.1 {ratio} Normal [facility] Comment on above: Performed By: #### C MP, TSH, LIPID #### [facility] [address] [address] [address] Marysol Peace ALP [Catalytic activity/Vol] 88 U/L Normal 46-116 [facility] Comment on above: Performed By: #### C MP, TSH, LIPID #### [facility] [address] [address] [address] Marysol Peace ALT [Catalytic activity/Vol] 36 U/L Normal 14-59 [facility] Comment on above: Performed By: #### C MP, TSH, LIPID #### [facility] [address] [address] [address] Marysol Peace Anion gap [Moles/Vol] 11.4 mmol/L Normal [facility] Comment on above: Performed By: #### C MP, TSH, LIPID #### [facility] [address] [place] [address] Dr. Marysol Peace AST [Catalytic activity/Vol] 18 U/L Normal 15-37 [facility] Comment on above: Performed By: #### C MP, TSH, LIPID #### [facility] [address] [place] [address] Dr. Marysol Peace Bilirubin [Mass/Vol] 0.5 mg/dL Normal 0.2-1.0 [facility] Comment on above: Performed By: #### C MP, TSH, LIPID #### [facility] [address] [place] [address] Dr. Marysol Peace Calcium [Mass/Vol] 9.5 mg/dL Normal 8.5-10.1 [facility] Comment on above: Performed By: #### C MP, TSH, LIPID #### [facility] [address] [place] [address] Dr. Marysol Peace Chloride [Moles/Vol] 102 mmol/L Normal 98-107 [facility] Comment on above: Performed By: #### C MP, TSH, LIPID #### [facility] [address] [place] [address] Dr. Marysol Peace CO2 [Moles/Vol] 31.7 mmol/L Normal 21.0-32.0 [facility] Comment on above: Performed By: #### C MP, TSH, LIPID #### [facility] [address] [place] [address] Dr. Marysol Peace Creatinine [Mass/Vol] 0.63 mg/dL Normal 0.55-1.02 [facility] Comment on above: Performed By: #### C MP, TSH, LIPID #### [facility] [address] [place] [address] Dr. Marysol Peace EGFR-AF [place] >60 Normal >=60 [facility] Comment on above: Performed By: #### C MP, TSH, LIPID #### [facility] [address] [place] [address] Dr. Marysol Peace EGFR-NON AF [place] >60 Normal >=60 [facility] Comment on above: Performed By: #### C MP, TSH, LIPID #### [facility] [address] [address] [address] Marysol Peace Globulin (S) [Mass/Vol] 3.7 g/dL Normal [facility] Comment on above: Performed By: #### C MP, TSH, LIPID #### [facility] [address] [address] [address] Marysol Peace Glucose [Mass/Vol] 129 mg/dL Critically high 74-106 [facility] Comment on above: Performed By: #### C MP, TSH, LIPID #### [facility] [address] [address] [address] Marysol Peace Potassium [Moles/Vol] 5.1 mmol/L Normal 3.5-5.1 [facility] Comment on above: Performed By: #### C MP, TSH, LIPID #### [facility] [address] [place] [address] Dr. Marysol Peace Protein [Mass/Vol] 7.7 g/dL Normal 6.4-8.2 [facility] Comment on above: Performed By: #### C MP, TSH, LIPID #### [facility] [address] [place] [address] Dr. Marysol Peace Sodium [Moles/Vol] 140 mmol/L Normal 136-145 [facility] Comment on above: Performed By: #### C MP, TSH, LIPID #### [facility] [address] [place] [address] Dr. Marysol Peace Urea nitrogen [Mass/Vol] 20.0 mg/dL Critically high 7.0-18.0 [facility] Comment on above: Performed By: #### C MP, TSH, LIPID #### [facility] [address] [place] [address] Dr. Marysol Peace Urea nitrogen/Creatinine [Mass ratio] 31.7 mg/mg Normal [facility] Comment on above: Performed By: #### C MP, TSH, LIPID #### [facility] [address] [place], [place] [address] Dr. Marysol Peace TSHon 12-06-2021 TSH 1.978 uIU/mL Normal 0.358-3.740 [facility] Comment on above: Performed By: #### C MP, TSH, LIPID #### [facility] [address] [place], [place] [address] Dr. Marysol Peace TSH RANGE SEE BELOW Normal [facility] Comment on above: Result Comment: <0.3 4 UIU/ml HYPERTHYROID 0.34-5.60 UIU/ml EUTHYROID >5.60 UIU/ml HYPOTHYROID Performed By: #### C MP, TSH, LIPID #### [facility] [address] [address] [address] Marysol Peace Vital Signs Date Time Vital Sign Value Performing Clinician Facility 07-13-2023 12:15-0500 Body height 170.18 cm Singh Ball Other [facility] Other 07-13-2023 12:15-0500 Diastolic blood pressure 80 mm[Hg] Singh Ball Other [facility] Other 07-13-2023 12:15-0500 Systolic blood pressure 135 mm[Hg] Singh Ball Other [facility] Other 07-07-2023 08:30-0500 Body height 170.18 cm Singh Ball Other [facility] Other 07-07-2023 08:30-0500 Body mass index (BMI) [Ratio] 34.83 kg/m2 Singh Ball Other [facility] Other 07-07-2023 08:30-0500 Body weight 100.88 kg Singh Ball Other [facility] Other 07-07-2023 08:30-0500 Diastolic blood pressure 89 mm[Hg] Singh Ball Other [facility] Other 07-07-2023 08:30-0500 Respiratory rate 16 /min Singh Ball Other [facility] [employer] Other 07-07-2023 08:30-0500 Systolic blood pressure 152 mm[Hg] Singh Ball Other [employer] [facility] Other 06-29-2023 09:36-0500 Body height 162.56 cm DO Singh Ball Work Phone: [facility] 06-29-2023 09:36-0500 Body temperature 98.3 [degF] DO Singh Ball Work Phone: [facility] 06-29-2023 09:36-0500 Body weight 91.85 kg DO Singh Ball Work Phone: [facility] 06-29-2023 09:36-0500 Diastolic blood pressure 80 mm[Hg] DO Singh Ball Work Phone: [facility] 06-29-2023 09:36-0500 Heart rate 83 /min DO Singh Ball Work Phone: [facility] 06-29-2023 09:36-0500 Respiratory rate 20 /min DO Singh Ball Work Phone: [facility] 06-29-2023 09:36-0500 SaO2% (BldA) [Mass fraction] 98 % DO Singh Ball Work Phone: [facility] 06-29-2023 09:36-0500 Systolic blood pressure 165 mm[Hg] DO Singh Ball Work Phone: [facility] 03-06-2023 08:30-0400 Body height 170.18 cm Singh Ball Other [facility] Other 03-06-2023 08:30-0400 Body mass index (BMI) [Ratio] 31.01 kg/m2 Singh Ball Other [facility] Other 03-06-2023 08:30-0400 Body weight 89.81 kg Singh Ball Other [facility] [employer] [facility] Other 03-06-2023 08:30-0400 Diastolic blood pressure 80 mm[Hg] Singh Ball Other [facility] [employer] Other 03-06-2023 08:30-0400 Respiratory rate 12 /min Singh Ball Other [facility] [employer] Other 03-06-2023 08:30-0400 Systolic blood pressure 152 mm[Hg] Singh Ball Other [facility] [employer] Other 12-28-2022 09:30-0400 Body temperature 97.9 [degF] DO Singh Ball Work Phone: [facility] 12-28-2022 09:30-0400 Body weight 90.26 kg DO Singh Ball Work Phone: [facility] 12-28-2022 09:30-0400 Diastolic blood pressure 88 mm[Hg] DO Singh Ball Work Phone: [facility] 12-28-2022 09:30-0400 Heart rate 79 /min DO Singh Ball Work Phone: [facility] 12-28-2022 09:30-0400 Respiratory rate 16 /min DO Singh Ball Work Phone: [facility] 12-28-2022 09:30-0400 SaO2% (BldA) [Mass fraction] 98 % DO Singh Ball Work Phone: [facility] 12-28-2022 09:30-0400 Systolic blood pressure 153 mm[Hg] DO Singh Ball Work Phone: [facility] 11-02-2022 10:30-0400 Body height 170.18 cm Singh Ball Other [facility] [employer] Other 11-02-2022 10:30-0400 Body mass index (BMI) [Ratio] 31.38 kg/m2 Singh Ball Other [facility] Other 11-02-2022 10:30-0400 Body weight 90.9 kg Singh Ball Other [facility] Other 11-02-2022 10:30-0400 Diastolic blood pressure 80 mm[Hg] Singh Ball Other [facility] Other 11-02-2022 10:30-0400 Respiratory rate 12 /min Singh Ball Other [facility] Other 11-02-2022 10:30-0400 Systolic blood pressure 136 mm[Hg] Singh Ball Other [facility] Other 11-02-2022 09:30-0400 Body height 170.18 cm Singh Ball Other [facility] Other 11-02-2022 09:30-0400 Body mass index (BMI) [Ratio] 31.38 kg/m2 Singh Ball Other [facility] Other 11-02-2022 09:30-0400 Body weight 90.9 kg Singh Ball Other [facility] Other 11-02-2022 09:30-0400 Diastolic blood pressure 80 mm[Hg] Singh Ball Other [employer] [facility] Other 11-02-2022 09:30-0400 Respiratory rate 12 /min Singh Ball Other [employer] [facility] Other 11-02-2022 09:30-0400 Systolic blood pressure 136 mm[Hg] Singh Ball Other [employer] Other 06-29-2022 08:22-0500 Body height 162.56 cm DO Singh Ball Work Phone: [facility] 06-29-2022 08:22-0500 Body weight 93.7 kg DO Singh Ball Work Phone: [facility] 06-29-2022 08:22-0500 Diastolic blood pressure 87 mm[Hg] DO Singh Ball Work Phone: [facility] 06-29-2022 08:22-0500 Heart rate 87 /min DO Singh Ball Work Phone: [facility] 06-29-2022 08:22-0500 Respiratory rate 20 /min DO Singh Ball Work Phone: [facility] 06-29-2022 08:22-0500 SaO2% (BldA) [Mass fraction] 97 % DO Singh Ball Work Phone: [facility] 06-29-2022 08:22-0500 Systolic blood pressure 157 mm[Hg] DO Singh Ball Work Phone: [facility] 04-13-2022 08:05-0400 Body weight 91.94 kg DO Singh Ball Work Phone: [facility] 04-13-2022 08:05-0400 Diastolic blood pressure 83 mm[Hg] DO Singh Ball Work Phone: [facility] 04-13-2022 08:05-0400 Heart rate 98 /min DO Singh Ball Work Phone: [facility] 04-13-2022 08:05-0400 Respiratory rate 20 /min DO Singh Ball Work Phone: [facility] 04-13-2022 08:05-0400 SaO2% (BldA) [Mass fraction] 96 % DO Singh Ball Work Phone: [facility] 04-13-2022 08:05-0400 Systolic blood pressure 147 mm[Hg] DO Singh Ball Work Phone: [facility] 01-13-2022 08:26-0400 Body temperature 97.8 [degF] DO Singh Ball Work Phone: [facility] 01-13-2022 08:26-0400 Body weight 91.62 kg DO Singh Ball Work Phone: [facility] 01-13-2022 08:26-0400 Diastolic blood pressure 79 mm[Hg] DO Singh Ball Work Phone: [facility] 01-13-2022 08:26-0400 Heart rate 82 /min DO Singh Ball Work Phone: [facility] 01-13-2022 08:26-0400 Respiratory rate 16 /min DO Singh Ball Work Phone: [facility] 01-13-2022 08:26-0400 SaO2% (BldA) [Mass fraction] 96 % DO Singh Ball Work Phone: [facility] 01-13-2022 08:26-0400 Systolic blood pressure 157 mm[Hg] DO Singh Ball Work Phone: [facility] 10-20-2021 08:57-0400 Body height 162.56 cm MD Thiago Durbin Work Phone: [facility] 10-20-2021 08:57-0400 Body temperature 98 [degF] MD Thiago Durbin Work Phone: [facility] 10-20-2021 08:57-0400 Body weight 95.11 kg MD Thiago Durbin Work Phone: [facility] 10-20-2021 08:57-0400 Diastolic blood pressure 78 mm[Hg] MD Thiago Durbin Work Phone: [facility] 10-20-2021 08:57-0400 Heart rate 87 /min MD Thiago Durbin Work Phone: [facility] 10-20-2021 08:57-0400 Respiratory rate 20 /min MD Thiago Durbin Work Phone: [facility] 10-20-2021 08:57-0400 SaO2% (BldA) [Mass fraction] 96 % MD Thiago Durbin Work Phone: [facility] 10-20-2021 08:57-0400 Systolic blood pressure 160 mm[Hg] MD Thiago Durbin Work Phone: [facility] Encounters Encounter Date Encounter Type Care Provider Facility Start: 07-13-2023 End: 07-13-2023 ambulatory Singh Ball Other [facility] Other Start: 07-13-2023 Office outpatient vi sit 15 minutes Singh Ball [facility] Start: 07-07-2023 End: 07-07-2023 ambulatory Singh Ball Other [employer] [facility] Other Start: 07-07-2023 Office outpatient vi sit 25 minutes Singh Ball [facility] Start: 06-29-2023 ambulatory Chiara Shun Facility:[facility] Start: 06-29-2023 End: 06-29-2023 ambulatory DO Singh Ball Work Phone: [facility] Work Phone: Start: 06-29-2023 End: 06-29-2023 Registered Recurring DO Singh Ball Work Phone: [facility] Work Phone: Start: 06-06-2023 End: 06-06-2023 ambulatory Singh Ball Other [employer] [facility] Other Start: 06-06-2023 Telephone encounter Singh Ball [facility] Start: 06-04-2023 End: 06-04-2023 ambulatory Singh Ball Other [facility] Other Start: 06-04-2023 Telephone encounter Singh Ball [facility] Start: 03-14-2023 End: 03-14-2023 ambulatory Singh Fowler Other [facility] Other Start: 03-14-2023 Telephone encounter [facility] Start: 03-06-2023 End: 03-06-2023 ambulatory Singh Fowler Other [facility] Other Start: 03-06-2023 Patient encounter procedure Singh Fowler [facility] Start: 03-06-2023 Telephone encounter [facility] Start: 01-13-2023 End: 01-13-2023 ambulatory Singh Fowler Other [facility] Other Start: 01-13-2023 Telephone encounter [facility] Start: 01-12-2023 End: 01-12-2023 ambulatory Singh Keo Other [facility] Other Start: 01-12-2023 Telephone encounter [facility] Start: 01-11-2023 End: 01-12-2023 ambulatory Salazar MUNIZ Facility:[id number] Start: 12-28-2022 End: 12-28-2022 ambulatory DO Singh Fowler Work Phone: [facility] Work Phone: Start: 12-28-2022 End: 12-28-2022 Registered Recurring DO Singh Fowler Work Phone: [facility] Work Phone: Start: 12-02-2022 End: 12-03-2022 ambulatory Salazar MUNIZ Facility:[facility] Start: 11-28-2022 End: 11-29-[address] SINGH FOWLER Facility:[facility] Start: 11-02-2022 End: 11-02-2022 ambulatory Singh Fowler Other [facility] Other Start: 11-02-2022 Encounter for genera l adult medical examination without abnormal findings Singh Fowler [facility] Start: 11-02-2022 Periodic preventive med est patient 40-64yrs Singh Fowler [facility] Start: 10-14-2022 End: 10-14-2022 ambulatory Singh Fowler Other [facility] Other Start: 10-14-2022 Telephone encounter Singh KRISHNAN [facility] Start: 10-03-2022 Encounter for genera l adult medical examination without abnormal findings DR SINGH FOWLER [facility] Start: 09-28-2022 End: 09-28-2022 ambulatory Singh Fowler Other [facility] Other Start: 09-28-2022 Telephone encounter Singh KRISHNAN [facility] Start: 09-27-2022 End: 09-28-2022 Encounter for general adult medical examination without abnormal findings DR SINGH FOWLER Facility: Start: 09-27-2022 End: 09-28-[address] SINGH FOWLER [facility] Other Start: 09-27-2022 Telephone encounter Sydney Bray [facility] Start: 09-19-2022 End: 09-19-2022 ambulatory Singh Fowler Other [facility] Other Start: 09-19-2022 Encounter for genera l adult medical examination without abnormal findings Singh Fowler [facility] Start: 09-19-2022 Telephone encounter Singh KRISHNAN [facility] Start: 09-16-2022 End: 09-16-2022 ambulatory Singh Fowler Other [facility] Other Start: 09-16-2022 Office outpatient vi sit 15 minutes Singh Fowler [facility] Start: 06-29-2022 End: 06-29-2022 ambulatory DO Singh Fowler Work Phone: [facility] Work Phone: Start: 06-29-2022 End: 06-29-2022 Registered Recurring DO Singh Fowler Work Phone: [facility] Start: 05-19-2022 End: 05-20-[address] SINGH FOWLER Facility:[facility] Start: 05-02-2022 End: 05-03-[address] SINGH FOWLER Facility:[facility] Start: 04-13-2022 End: 04-13-2022 ambulatory DO Singh Fowler Work Phone: [facility] Work Phone: Start: 04-13-2022 End: 04-13-2022 Registered Recurring DO Singh [facility] Start: 03-17-2022 End: 03-17-2022 ambulatory Vee Wadsworth Other [facility] [employer] Other Start: 03-17-2022 Office outpatient ne w 30 minutes Vee Wadsworth [facility] Start: 03-17-2022 End: 03-17-2022 Patient encounter procedure DO Singh Fowler Work Phone: [facility] Start: 02-26-2022 End: 02-26-2022 ambulatory HARSHAD CASTELLON . Facility:[facility] Start: 02-07-2022 ambulatory Salazar MUNIZ Facility:[facility] Start: 01-18-2022 End: 01-19-[address] ANDREW MORRIS Facility:[facility] Start: 01-13-2022 End: 01-13-2022 Registered Recurring DO Singh Fowler [facility] Start: 01-02-2022 End: 01-02-[address] ANDREW MORRIS Facility:[facility] Start: 12-06-2021 End: 12-07-[address] SINGH FOWLER Facility:[facility] Start: 10-20-2021 End: 10-20-2021 Registered Recurring MD Thiago Durbin [facility] Start: 03-08-2021 End: 06-01-2021 Pre-admission assessment Daniel Lopes [facility] Procedures Date Procedure Procedure Detail Performing Clinician Start: 03-17-2022 X-ray of right knee DO Singh Fowler Work Phone: Start: 02-22-2021 Re-excision of breas t for clearance of tumor margins Daniel Lopes Start: 06-04-2019 Fracture of ankle (disorder) Daniel Lopes section Daniel Melton rick Fine needle aspirati on of breast using ultrasound guidance Daniel Lopes Lumpectomy of right breast Bakari ryanmilvia Lopes Tonsillectomy Daniel Lopes Plan of Treatment Date Care Activity Detail Author Start: 10-20-2021 [facility] Start: 04-06-2021 [facility] Computed tomography for radiotherapy planning [facility] DXA Skeletal system. axial Views for bone density [facility] DXA Skeletal system. axial Views for bone density [facility] MG Breast - bilateral Diagnostic [facility] MG Breast - bilateral Diagnostic [facility] Immunizations Immunization Date Immunization Notes Care Provider Fa cility 08-06-2020 COVID-19 mRNA-1273 (Moderna) MD Thiago Durbin Work Phone: [facility] 06-16-2020 COVID-19 mRNA-1273 (Moderna) MD Thiago Durbin Work Phone: [facility] 04-24-2013 tetanus and diphther ia toxoids, adsorbed, preservative free, for adult use (5 Lf of tetanus toxoid and 2 Lf of diphtheria toxoid) Singh Fowler Other [employer] [facility] Other Payers Date Payer Category Payer [facility] [id number] 2021 Self-pay [id number] 2019 Unknown [id number] 1959 Self-pay [id number] 1958 Unknown [id number] 2.16.84 [id number] 1958 Unknown [id number] 2.16.84 [id number] 1958 Unknown [id number] 2.16.84 [id number] 1958 Unknown [id number] 2.16.84 [id number] 1958 Unknown [id number] 2.16.84 [id number] 1958 Unknown [id number] 2.16.84 [id number] 1958 Unknown [id number] 2.16.84 [id number] 1958 Unknown [id number] 2.16.84 [id number] 1958 Unknown [id number] 2.16.8 [id number] 1958 Unknown [id number] 2.16.8 [id number] 1958 Unknown [id number] 2.16.8 [id number] Unknown [id number] 2.16.84 [id number] Unknown [id number] 2.16.84 [id number] Unknown [id number] 2.16.8 [id number] Social History Date Type Detail Facility Start: 03-02-2021 Tobacco smoking status Never [facility] Start: 10-20-2021 End: 06-29-2023 Tobacco smoking status Never smoked tobacco (finding) [facility] Sex Assigned At Female [facility] Start: 1960 Sex Assigned At Female F [facility] Clinical Notes 03-16-2021 to 07-13-2023 Note Date & Type Note Facility 07-13-2023 Evaluation note Encounter Date Diagnosis Assessment Notes Jun, Acute bronchitis due to other specified organisms (ICD-10 - J20.8) Instructed to use Robitussin or Mucinex for cough, saline or Flonase NS for congestion, Tylenol for pain and fever. Jun, Primary hypertension (ICD-10 - I10) Avoid use of sudafed containing products, which would increase BP This patient is instructed to consume a healthy, low-fat, low-salt diet. They are also encouraged to continue exercise to achieve/maint ain a normal BMI. [facility] Other 12-22-2023 Evaluation note* Encounter Date Diagnosis Assessment Notes Treatment Notes Treatment Clinical Notes Jun, Primary hypertension (ICD-10 - I10) This patient is instructed to consume a healthy, low-fat, low-salt diet. They are also encouraged to continue exercise to achieve/maintain a normal BMI. Jun, Type 2 diabetes mellitus with hyperglycemia, without long-term current use of insulin (ICD-10 - E11.65) This patient is following a comprehensive diabetic treatment plan. They are checking their feet daily for calluses and nonhealing ulcers. They are being seen for yearly dilated eye examinations. Goals: SBP less than 130, LDL less than 100, FBS less than 140, A1C less than 7%. They are checking their BS daily, will which are reviewed at the office visit. Continue regular routine monitoring of A1C,] Microalbumin, Dilated eye exam and Foot exam Jun, Hyperlipidemia type II (ICD-10 - E78.01) Instructed on diet and exercise with continued statin therapy.Discussed the beneficial effects of lowering cholesterol in reducing the risk for cerebrovascular and cardiovascular disease. Jun, Chronic venous insufficiency (ICD-10 - I87.2) Avoid salt and elevate lower extremities, support stockings, inspect legs and feet daily for blisters and ulcerations. Jun, Other obesity due to excess calories (ICD-10 - E66.09) This patient has been instructed on a low-fat, high-fiber diet. They are instructed to reduce calories, portion sizes and snacks. It is recommended that they exercise for 30 minutes, 3-5 times weekly. Jun, Body mass index [BMI] 31.0-31.9, adult (ICD-10 - Z68.31) [employer] Other 11-21-2023 Evaluation note* Encounter Date Diagnosis Assessment Notes Treatment Notes Treatment Clinical Notes May, Primary hypertension (ICD-10 - I10) [employer] Other 11-19-2023 Evaluation note* Encounter Date Diagnosis Assessment Notes Treatment Notes Treatment Clinical Notes May, Type 2 diabetes mellitus with hyperglycemia, without long-term current use of insulin (ICD-10 - E11.65) May, Primary hypertension (ICD-10 - I10) [employer] Other 08-21-2023 Evaluation note* Encounter Date Diagnosis Assessment Notes Treatment Notes Treatment Clinical Notes Feb, Primary hypertension (ICD-10 - I10) This patient is instructed to consume a healthy, low-fat, low-salt diet. They are also encouraged to continue exercise to achieve/maintain a normal BMI. Feb, Type 2 diabetes mellitus with hyperglycemia, without long-term current use of insulin (ICD-10 - E11.65) This patient is following a comprehensive diabetic treatment plan. They are checking their feet daily for calluses and nonhealing ulcers. They are being seen for yearly dilated eye examinations. Goals: SBP less than 130, LDL less than 100, FBS less than 140, AC and A1C less than 7%. They are checking their BS daily, will which are reviewed at the office visit. Continue regular routine monitoring of A1C,] Microalbumin, Dilated eye exam and Foot exam Due for A1C Off all medications due to intolerance Awaiting results to determine if treatment required Feb, Hyperlipidemia type II (ICD-10 - E78.01) Instructed on diet and exercise with continued statin therapy.Discussed the beneficial effects of lowering cholesterol in reducing the risk for cerebrovascular and cardiovascular disease. Feb, Pulmonary nodule, right (ICD-10 - R91.1) CT: 6-10mm RUL, RML 08/2021 CT: stable, decreasing GGO 11/2021 CT: small, calcified pulmonary nodules 2022 Need to send for results, she believes a CT scan was completed this . GGO and nodule will require monitoring until resolved or at least 2 years w/o change have occurred . Feb, Chronic venous insufficiency (ICD-10 - I87.2) Avoid salt and elevate lower extremities, support stockings, inspect legs and feet daily for blisters and ulcerations. Feb, Other obesity due to excess calories (ICD-10 - E66.09) This patient has been instructed on a low-fat, high-fiber diet. They are instructed to reduce calories, portion sizes and snacks. It is recommended that they exercise for 30 minutes, 3-5 times weekly. Feb, Body mass index [BMI] 31.0-31.9, adult (ICD-10 - Z68.31) [employer] Other 06-30-2023 Evaluation note* Encounter Date Diagnosis Assessment Notes Treatment Notes Treatment Clinical Notes Dec, Essential hypertension (ICD-10 - I10) [employer] Other 06-14-2023 Progress note Author Chiara Hoffmann [facility] December 28, 2022 9:59am Note Date/Time December 28, 2022 9:34 am [facility] [place] [address] Hem/Onc Follow Up Note - OP Signed Patient: Renuka Caceres MR#: [id number] : 1960 Acct:[id number] Age/Sex: 62 / F Type: REG RCR Copies to: DO Daniel Calvert MD Michael R Nill, MD FACS~ Subjective Date/Time of Service: Date of Service: 12/28/2022 Time of Service: 09:33 Chief Complaint: Patient is here today for a 6 month follow up visit for breast cancer. She had her mamogram done in November of 2022 HPI: 12/28/2022: Renuka is here for 6-month follow-up of breast cancer on letrozole. She notes that she is scheduled to see Dr. Kimble for colonoscopy on 01/11/2023 due to family history of colon cancer. She denies any change in bowelfrequency or bright red blood per rectum. Dr. Kimble does not regularly follow herfor her breast cancer and we performed clinical breast exam today with no evidence of recurrence. She notes that her hot flashes are stable on letrozole and that she no longer has muscle aches and pains since she stopped metformin. She remains compliant with letrozole and this was refilled today. [facility]22 showed heterogeneously dense breasts but no evidence of recurrence in right breast and no suspicious findingsof the left breast. Recommended routine mammography in 12 months. She also hada chest CT 11/28/2022 to follow-up for history of solitary nodules in the lung which showed a few tiny lung nodules less than 5 mm in size which are stable from prior CT scan November 2021. This likely does not need to be followed regularly. Last DEXA scan was normal at [place] 01/18/2022 will be due in 1 year. She will continue letrozole 2.5 mg daily to complete a 5 to 7-year course. Moderate complexity 30-minute visit to review outside imaging and exam. 06/29/2022: Renuka is here for follow-up for her right breast cancer on letrozole. She continues to do well without major joint complaints. She does note her hot flashes have increased since she started taking her diuretic in themornings about a month ago, but these remain tolerable. Otherwise no new complaints. Her energy is stable. She denies new lumps or skin changes on self-exam each month, and none noted on my exam in office today. She will follow-up with Dr. Hoffmann in 6 months. Next mammogram will be November. 04/13/2022: Renuka is here for follow-up on letrozole for her breast cancer. She is doing very well overall. She notes some muscular pain in her right side d/t increased physical activity. This comes and goes with exercise and is tolerable. She also has some knee pain with increased exercise d/t known meniscus injury. Otherwise she denies new complaints including hot flashes or worsening joint complaints. No skin changes or new lumps noted on self-exam. Shehad her baseline DEXA done on 01/18/2022 which showed normal bone density. She denies starting calcium and vitamin D previously so we again recommended she start supplementation while on letrozole. She will follow-up in [address] Hoffmann. 01/13/2022: Renuka is here for 3-month follow-up on letrozole therapy for T2 N0 M0 ER/VA positive breast cancer, status postlumpectomy in February 2021 with reexcision to negative margins.. She completed adjuvant radiation therapy March-April 2021. She started anastrozole in May 2022 but did not tolerate this well and stopped taking it 07/20/2021. She was changed to letrozole08/11/2021 and tolerates this well without significant hot flashes, myalgias, arthralgias. She has no skin changes, masses, or pain of the breast on self-exam. We reviewed her mammogram from [facility] performed 10/06/2021 which returned with heterogeneously dense breasts but no significant suspicious abnormalities and postsurgical changes in the right upper inner quadrant. She has not had baseline DEXA scan and we ordered this today. Advised to start calcium and vitamin D until DEXA findings which she will be contacted with afterreview. Next follow-up with nurse practitioner in 3 months, 6 months with hi. Oumar complexity visit over 25 minutes for transfer of oncology care and review of osteopenia screening and recommendations for supplemental calcium/vitamin D. 10/20/2021: Renuka presents today in follow-up for her breast cancer on letrozole. She previously was on anastrozole but did not tolerate this d/t multiple hot flashes during the day and throughout the night, interrupting her sleep. She stopped taking anastrozole on 07/20/2021 and was switched to letrozole on 08/11/2021. She is doing better on this and continues with hot flashes, but these are more tolerable/less frequent and do not wake her up throughout the night. Otherwise she denies any new symptoms and feels well overall. She denies any new lumps or skin changes on self-exam. Her last breast exam was June 2021. She is due for her mammogram this month and has these done at [place]. Eliazar get this record once it's completed. -- She will follow-up in [address] Hoffmann for exam and to follow-up on symptoms. She will call in sooner if needed. We will try to coordinate her next follow-up to be same day as her radiation follow-up appointment. 07/20/2021: Renuka presents in follow-up today July 20, 2021. She is having intractable hot flashes and night that keeps her up. She is on anastrozole. Renuka presented with breast cancer having had lumpectomy in January 31, 2021. She had a 4.5 cm invasive lobular breast cancer, 0 of 6 lymph nodes positive. ER and VA was positive, H ER 2 -. [facility] genetic testing was negative for BRCA 1 and 2. Oncotype DX showed low risk disease. She was started on radiation March 2021. Her family doctor is Dr. Juan Fowler and she was operated on by Dr. Salazar Kimble. CURYUNG: Now 62-year-old post-menopausal female- had menopause at age 53 and she did not take any HRT. She is a non-smoker and drinks alcohol occasionally and she is Ab0. She had been asymptomatic but gets her regular screening mammograms which previously had shown a suspicious area in the right breast was being followed up. Her screening mammogram in October 2020 was abnormal and subsequent diagnostic mammogram and ultrasound study showed 11 x 10 x 10 mm shadowing lesion at 1 o'clock position in the right breast. She had a stereotactic core biopsy on 12/22/2020 with confirmation of lobular carcinoma. 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 6 sentinel nodes were negative for metastatic disease in the primary tumor measured 4.5 cm in diameter. Her margins of resection were positive inferiorly and posteriorly andsubsequently, she had re-resection of the tumor bed on 02/23/2021. The final surgical margins were all negative and there was no residual carcinoma identified. Patient's Oncotype DX score is [address] Lopes did not plan to give any chemotherapy and she received a 6-week course of radiation therapy to the right breast and her treatment course was completed in May 2021. Patient was started on Arimidex at the end of May [address] Lopes. DIAGNOSIS: 1. pT1b pN0(sn-) Mx left sided invasive mammary carcinoma s/p lumpectomy and SLNbx 12/22/2015--8 total lymph nodes negative. Oncotype score LOW 11 (7% 10-year recurrence hormonal therapy alone). Hormone receptor positive, HER2 negative. 2. She completed adjuvant radiation in 02/2016 3. Adjuvant Arimidex started 03/2016 (changed to letrozole 08/11/2021 due to hot flashes). She takes calcium and vitamin D. Tolerating well. Plan 5-7 years of therapy. 4. Bilateral breast reduction by Dr. Antunez 08/23/2016 with no residual breast malignancy 5. Osteopenia with most recent DEXA scan 04/12/2018 showing AP spine T score - 2.1, left femoral neck T score -1.7, right femoral neck T score -1.4. Next bonedensitometry will be in 03/2020 6. Comorbidities hypothyroidism, depression, GERD - Summary of Therapies Summary of Therapies: She had a stereotactic core biopsy on 12/22/2020 with confirmation of lobular carcinoma. 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 -- 6 sentinel nodes were negative for metastatic disease in the primary tumor measured 4.5 cm in diameter. Her margins of resection were positive inferiorly and posteriorly. -- Re-resection of the tumor bed on 02/23/2021. The final surgical margins were all negative and there was no residual carcinoma identified. 2) Received 6-week course of radiation therapy to the right breast from March 2021- May 2021. 3) Patient was started on Arimidex May 2021 (at [place]). Did not tolerated/t hot flashes, so switched to letrozole 08/11/2021 -- Will continue letrozole for 7 years if well-tolerated (May 2028) ROS Details: All systems reviewed & no additional complaints except as documented Subjective/ROS - Narrative: CONSTITUTIONAL: Negative for fatigue, negative for fever or night sweats. HEAD AND NECK: Negative for changes in hearing and vision. Negative for mouth ulcers, nasal congestion and nasal drainage. PULMONARY: Negative for chest pain, cough and dyspnea. CARDIOVASCULAR: Negative for claudication and irregular heartbeat/palpitations. No history of coronary artery disease. GASTROINTESTINAL: Negative for abdominal pain, constipation, decreased appetite,diarrhea, nausea or vomiting. Scheduled screening colonoscopy 01/11/2023 and we will receive results. GENITOURINARY: Negative for dysuria and hematuria. ENDOCRINE: Negative for cold intolerance and heat intolerance (mild intermittenthot flashes are tolerable on letrozole). CENTRAL NERVOUS SYSTEM: Negative for gait disturbance and headache. PSYCHIATRIC: Negative for anxiety or depression. DERMATOLOGICAL: Negative for pruritus and rash. Negative for suspicious skin lesions. MUSCULOSKELETAL: Negative for back pain and bone/joint symptoms. HEMATOLOGICAL: Negative for bleeding and easy bruising. Negative for history of transfusion or thromboembolic disease ALLERGY: Negative for environmental allergies and food allergies. PMFSH - History Attestation statement: The following information was validated with the patient. Source: Old Records Reviewed - Medical History Medical History: Medical History (Last Reviewed 12/28/22 @ 09:49 by Chiara Hoffmann MD) Adenocarcinoma of right breast Ankle fracture Hyperlipemia Hypertension Lumbosacral spondylolysis Plantar fasciitis Seasonal allergies - Surgical History Surgical History: Surgical History (Last Reviewed 12/28/22 @ 09:49 by Chiara Hoffmann MD) History of tonsillectomy - Family History Family History: Family History (Last Reviewed 12/28/22 @ 09:49 by Chiara Hoffmann MD) Sister No significant family history Family/Other No significant family history - Social History Smoking Status: Never smoker Substance Use Type: None Home Medications & Allergies Allergies Sulfa (Sulfonamide Antibiotics) Allergy (Verified 12/28/22 09:30) Itching Home Medications amlodipine 5 mg tablet 5 mg PO DAILY 03/11/21 [History Confirmed 12/28/22] atorvastatin 40 mg tablet 40 mg PO DAILY 03/11/21 [History Confirmed 12/28/22] benazepril 20 mg tablet 20 mg PO DAILY 03/11/21 [History Confirmed 12/28/22] hydrochlorothiazide 25 mg tablet 25 mg PO DAILY 03/11/21 [History Confirmed 12/28/22] letrozole 2.5 mg tablet 2.5 mg PO DAILY #90 tabs 12/07/21 [Rx Confirmed 12/28/22] multivitamin 1 tab PO DAILY 12/28/22 [History Confirmed 12/28/22] Objective - Height/Weight Height/Weight: Height 5 ft 4 in Weight 90.265 kg - Vital Signs Vital Signs: 12/28/22 09:30 Temperature 97.9 F Pulse Rate [Left Brachial] 79 Respiratory Rate 16 Blood Pressure [Left Arm] 153/88 H 02 Sat by Pulse Oximetry 98 Oxygen Delivery Method Room Air - Pain Right Axillary Pain Intensity: 5 - Distress Screening Distress Screen Results: RN Distress Screening Start: 03/12/21 10:55 Freq: Status: Active Protocol: Document 04/27/21 11:19 DB (Rec: 04/27/21 11:19 DB [email or web address]) Distress Screening Distress Score: 1 Physical Concerns Feeling tired or a lack of energy Distress Screening Total 1 Physical Exam Narrative: CONSTITUTIONAL: The patient is in no acute distress. HEAD / FACE: Normocephalic; atraumatic, no scleral icterus. LYMPHATIC: No palpable cervical, supraclavicular, or axillary adenopathy. BREASTS: Right upper inner quadrant well-healed lumpectomy scar. No lumps or skin changes noted, no nipple discharge or deviation. No axillary adenopathy RESPIRATORY: Normal to inspection. Lungs clear to auscultation bilaterally, no wheezes, rhonchi or rales. CARDIOVASCULAR: Regular rate and rhythm. No murmurs, gallops, or rubs. ABDOMEN: Bowel sounds normoactive. Soft, nontender and non-distended. No hepatosplenomegaly. No masses noted. INTEGUMENTARY: The skin is unremarkable. No rashes. No suspicious lesions MUSCULOSKELETAL: Normal musculature, no joint deformities or abnormalities, normal range of motion for all four extremities. EXTREMITIES: No edema, cyanosis or clubbing. NEUROLOGICAL: Alert and oriented. Cranial nerves intact. No gross motor or sensory deficits. Ambulates independently. PSYCHIATRIC: No anxiety or evidence of depression. - ECOG Performance Status ECOG Score: 0 Results - Labs Labs: No labs for review - Impressions Imaging from [facility] reviewed: 11/28/2022: 3D diagnostic mammogram Breast composition: Heterogeneously dense, which may obscure small masses Findings: Diagnostic category 2, benign finding: Right breast: Stable architectural distortion consistent with postsurgical scarring within the upper inner quadrant posterior breast. No significant changes recurred. Left breast: No significant suspicious finding. No significant changes occurred. Recommendations: Routine mammogram and clinical evaluation in 12 months. 11/28/2022: CT chest without contrast History: Solitary nodule of lung; history of breast cancer Comparison: CT chest 12/06/2021. Findings: Lungs: Stable appearance of a few tiny lung nodules, less than 5 mm in size. A few calcified nodules compatible with chronic granulomas within the left lung, largest is 1 cm. Pleura with no mass, effusion, or pneumothorax. Impression: 1. Stable appearance of few small calcified and noncalcified nodules scattered within the lungs. No new nodules or overtly suspicious nodules. 2. No lymphadenopathy 01/18/2022: Bone density DEXA scan AP spine T score +0.3, normal Right femur neck femur T score +0.3, normal Follow-up DEXA scan will be due January 2024 Assessment and Plan - TNM Staging Staging: Pathologic stage T2 N0 M0 invasive lobular carcinoma, Castillo grade 2 with associated ductal carcinoma in situ and lobular carcinoma in situ. 6 sentinel nodes were negative for metastatic disease in the primary tumor measured 4.5 cm in diameter. Her margins of resection were positive inferiorly and posteriorly and subsequently, she had re-resection of the tumor bed on 02/23/2021. The finalsurgical margins were all negative and there was no residual carcinoma identified. Estrogen receptor 95%, progesterone receptor 90%, HER2 negative (1+ IHC) documented on original biopsy 01/29/2021 Patient's Oncotype DX score is 24 and chemo was not recommended (1) Malignant neoplasm of upper-inner quadrant of right female breast Qualifiers: Estrogen receptor status: positive Qualified Code(s): C50.211 - Malignant neoplasm of upper-inner quadrant of right female breast; Z17.0 - Estrogen receptor positive status [ER+] 62-year-old post-menopausal female- had menopause at age 53 and she did not take any HRT. She is a non-smoker and drinks alcohol occasionally and she is Ab0. She had been asymptomatic but gets her regular screening mammograms which previously had shown a suspicious area in the right breast was being followed up. Her screening mammogram in October 2020 was abnormal and subsequent diagnostic mammogram and ultrasound study showed 11 x 10 x 10 mm shadowing lesion at 1 o'clock position in the right breast. She had a stereotactic core biopsy on 12/22/2020 with confirmation of lobular carcinoma. 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 6 sentinel nodes were negative for metastatic disease in the primary tumor measured 4.5 cm in diameter. Her margins of resection were positive inferiorly and posteriorly and subsequently, she had re-resection of the tumor bed on 02/23/2021. The final surgical margins were all negative and there was no residual carcinoma identified. Patient's Oncotype DX score is [address] Lopes did not plan to give any chemotherapy and she received a 6-week course of radiation therapy to the right breast and her treatment course was completed in May 2021. Patient was started on Arimidex at the end of May [address] Lopes at [place]. 07/20/2021: Stopped anastrozole due to severe hot flashes. The patient will call me in 2 weeks for follow-up to see if the hot flashes have resolved. If they have, we will try her on letrozole. If they have not we will talk to her about other options. One option could be tamoxifen or another selective estrogen receptor modulator. There are other modalities we could also try to alleviate hot flashes as well. She was not having this prior to initiation of anastrozole. 08/11/2021 phone call with improvement in hot flashes. Patient switched to letrozole at this time. 10/20/2021: She continues to tolerate the letrozole ok with less frequent hot flashes. Otherwise she denies any new complaints. No new lumps or skin changes on self- exam noted. She will have her mammogram done this month at [place] and will have results sent to us. Plan for follow-up in [address] Hoffmann for exam. We will coordinate this with her upcoming radiation oncology follow-up visit. She has no questions today and is in agreement with this plan. 01/13/2022: Still tolerating letrozole well with no findings of recurrence on clinical exam or mammogram reviewed from 12/06/2021. No baseline DEXA scan records therefore we will order DEXA scan today. She has advised to take supplemental calcium and vitamin D and to continue her letrozole 2.5 mg daily. Next follow-up for clinical exam with nurse practitioner in 3 months and with me in 6 months. She no longer follows with her primary surgeon. She also was evaluated by radiation oncology today with no new recommendations. This is a moderate complexity visit over 25 minutes for transfer of care from Dr. Lopes who is no longer in the practice. 04/13/2022: She continues to do well on letrozole without worsening hot flashes or joint complaints. Her baseline DEXA shows normal bone density. She will see Dr. Hoffmann in 3 months for follow-up and next mammogram will be due in November 2022. She has no questions and is in agreement with this plan. 06/29/2022: She continues to do well without evidence of recurrence on exam. She remains on letrozole without worsening joint complaints. She does note an increase in hot flashes since switching her diuretic dosing to the morning, but still tolerable. Her next mammogram will be due in November 2022. She will follow-up with Dr. Hoffmann in 6 months, sooner as needed. 12/28/2022: Tolerating letrozole well with minimal hot flashes and joint complaints have improved since she stopped letrozole. Her diabetes is followed regularly by Dr. Fowler. She is scheduled for screening colonoscopy in late December and recently had a follow-up chest CT for pulmonary nodules which were negative for any new nodules or significant change of likely granulomatous nodules. She should not require routine chest imaging. Her clinical breast exam and mammogram shows no evidence of recurrence. Continue medical oncology follow-up every 6 months on letrozole therapy for goal of 5 to 7 years of adjuvant therapy (I would encourage closer to 7 due to good tolerance and higher risk Oncotype score). This is a moderate complexity 30-minute visit to follow-up multiple outside studies. (2) Osteoporosis screening DEXA ordered for osteoporosis screening on aromatase inhibitor therapy. We discussed minimum calcium 500 mg with 400 international units vitamin D daily. If she has evidence of osteopenia or osteoporosis we may change her calcium and vitamin D recommendations and consider addition of bisphosphonate therapy. 04/13/2022: Baseline DEXA done 01/18/2022 with normal bone density. Will plan for repeat in January 2024. We again recommended initiation of calcium and vitamin D daily while on letrozole. 06/29/2022: She is on vitamin D, we recommended she add in calcium with this and she is in agreement. Due for next DEXA scan in January 2024. Results of normal DEXA are reported in current progress note. (3) Pulmonary nodule less than 6 mm determined by computed tomography of lung Patient had recent follow-up CT for pulmonary nodules which are all less than 1 cm in size. She likely does not require routine follow-up of these pulmonary nodules as they appear granulomatous, however I will defer this to her primary physician Dr. Fowler. (4) Diabetes mellitus type 2, controlled, without complications She was previously on metformin but this was discontinued due to myalgias and arthralgias. Now being observed diet control only by Dr. Fowler. (5) Encounter for monitoring aromatase inhibitor therapy Initial poor tolerance of anastrozole therapy started in early July 2021. She now has nearly resolved hot flashes on letrozole 2.5 mg daily started 08/11/2021. Continue for total 5 to 7-year course of aromatase inhibitor therapy. - Chemo Plan Chemo Plan (Dose, Rate, Freq): Letrozole 2.5 mg daily since July 2021. Continue for 5 to 7-year course. Goal of Treatment: Curative - Time with Patient Time Spent with Patient (Follow Up Visit): 35 minutes - Moderate complexity 30 visit follow-up exam and multiple outside imaging studies. Coordination of Care & Counseling Time: Greater than 50% of time spent with patient was for coordination of care (as documented) and [id number]-[id number] counseling of patient and/or family. Dictated By: Chiara Hoffmann MD DD/ Signed By: <Electronically signed by MD Chiara Hoffmann> 12/28/22 [address] [facility] Work Phone: [phone] NoteChief Complaint consultation for screening colonoscopy HPI Staff 62 year old female presents on consultation from Dr. Fowler for screening colonoscopy. Denies abdominal or rectal pain. No rectal bleeding or change in bowel habits. Denies nausea or vomiting. No unexplained weight loss. Never had colonoscopy in the past. Father with history of colon cancer, diagnosed age 50's. History of Present Illness 62 yo female with h/o DMII, htn, hyperlipidemia, right breast cancer; referred for colorectal screening; denies change in bms or blood in stools; no abdominal complaints; denies asa or NSAID use, no SBE prophylaxis; abdominal operations significant for , no previous colonoscopy ; fmhx of colon cancer in patient's father dx in his 50's, no fmhx of IBD; no tobacco use. Review of Systems PHQ Score Initial Depression Screen Score: 0 ROS - Provider Constitutional: no fever, no sweats, no weight loss. Eyes: no glasses, no blurred vision, no visual loss. ENMT: no dentures, no hoarseness, no swallowing difficulties, no hearing loss, no ear infection(s),no nose bleeds. Cardiovascular: normal blood pressure, no chest pain, regular heartbeat, no heart murmur. Respiratory: no shortness of breath, no cough, no asthma, no wheezing. Gastrointestinal: no nausea, no vomiting, no diarrhea, no constipation, no blood in stool, no change in bowel habits, no abdominal pain, no hepatitis. Genitourinary: no kidney stones, no urine infection, no dysuria. Musculoskeletal: no pain, no weakness. Skin: no changing moles, no rash, no skin lumps. Neurologic: no seizures, no epilepsy, no headache. Psychiatric: no emotional or psychiatric problem. Heme/Lymph: no bleeding problems, no anemia, no blood clots, no transfusions. Allergy/Immunologic: no swollen lymph nodes/glands, no IV drug abuse. Other: Additional ROS info: Except as noted in the above Review of Systems and in the History of Present Illness, all other systems have been reviewed and are negative or noncontributory. Physical Exam Vitals & Measurements HR: 76(Peripheral) RR: 16 BP: 140/92 HT: 67 in HT: 170.1 cm WT: 90.1 kg WT: 198.22 lb BMI: 31.14 HEENT: normal conjunctiva, sclera clear, no scleral icterus, EOM intact, PERRLA, oral mucosa moist without lesions. Neck: trachea midline, no mass, symmetric, no thyromegaly or nodules, no adenopathy Respiratory: lungs CTA, respirations non labored. Cardiovascular: regular rate and rhythm, no murmur, no pedal edema or varicosities. Gastrointestinal: obese,soft, non distended, no tenderness, no masses, no palpable hernias, diastasis recti no, no hepatosplenomegaly; normal bs Lymphatic: no cervical adenopathy, no supraclavicular adenopathy Musculoskeletal: normal gait, digits and nails without infection, nodes, cyanosis, clubbing. Skin: no rashes, no lesions, no ulcers, no subcutaneous nodules, induration. Psychiatric/Neuro: oriented to time, place, person, judgement normal, affect appropriate for age, insight intact, no focal deficits. Tests: review of old records completed, Discussed surgical options, risks, and possible complications with patient. Assessment/Plan 1. Screening for malignant neoplasm of colon (Z12.11: Encounter for screening for malignant neoplasm of colon) plan colonoscopy under anesthesia, informed consent obtained. 2. Family history of colon cancer in father (Z80.0: Family history of malignant neoplasm of digestive organs) see # 1 Follow-up No qualifying data available Problem List/Past Medical History Ongoing Adenocarcinoma of right breast BMI 31.0-31.9,adult Class 1 obesity due to excess calories in adult Family history of colon cancer in father Hyperlipidemia Hypertension Lobular carcinoma of right breast Lumbosacral spondylosis with radiculopathy Pulmonary nodule, right Screening for malignant neoplasm of colon Seasonal allergies Type 2 diabetes mellitus Historical High cholesterol Hypertension Plantar fasciitis Syndesmotic disruption of left ankle Procedure/Surgical History Re-excision of breast for clearance of tumor margins (02/22/2021), Ankle fracture (06/04/2019), section, Fine needle aspiration biopsy of breast using ultrasound (US) guidance, Lumpectomy ofright breast, Tonsillectomy. Medications amLODIPine 5 mg Tab, 5 mg= 1 tab(s), Oral, Daily atorvastatin 40 mg Tab, 40 mg= 1 tab(s), Oral, Daily benazepril 20 mg Tab, 20 mg= 1 tab(s), Oral, Daily hydrochlorothiazide 25 mg oral tablet, 25 mg= 1 tab(s), Oral, Daily letrozole 2.5 mg Tab, 2.5 mg= 1 tab(s), Oral, Daily Allergies sulfa drugs (Rash) Social History Alcohol - Low Risk, 01/15/2021 Substance Abuse - Denies Substance Abuse, 01/15/2021 Tobacco - Denies Tobacco Use, 01/15/2021 Never (less than 100 in lifetime) Tobacco Use:. Never Smokeless Tobacco Use:., 12/02/2022 Family History Diabetes mellitus type 2: Mother. Hypertension: Mother and Father. Primary malignant neoplasm of (more content not included)...[facility]:Result Comment: Electronically Signed By: Salazar MUNIZ MD.br\Date and Time Signed: 12/02/22 14:59 [id number] Reason for referral (narrative)* Reason 12/02/22 Referral for screening colonoscopy in asymptomatic high risk patient. Diagnosis 1 Encounter for screen ing colonoscopy (Z12.11) Referral Organization [facility] Referring Provider First Name Singh Referring Provider Last Name Keo Referring Provider Specialty Internal Me dicine Referred Organization [facility] Referred Provider Salazar Muniz Referred Address [address], [place],[address] Referred Provider Specialty Surgery Referral Priority Routine Referral Appointment Date 2022-12-02 General Notes iKra Tran 12:38:54 PM >received today Kira Tran 11/03/2022 12:41:54 PM >notes locked, attachments made, referral faxed Kira Tran 11/10/2022 11:14:17 AM >faxed first attempt letter Kira Tran 11/14/2022 04:13:52 PM >received fax with appt date Kira Tran 12/08/2022 06:10:37 AM >notes in chart and reviewed. closing referral Clinical Notes [id number] [employer] Other 04-19-2023 Evaluation note* Encounter Date Diagnosis Assessment Notes Treatment Notes Treatment Clinical Notes Oct, Type 2 diabetes mellitus with hyperglycemia, without long-term current use of insulin (ICD-10 - E11.65) This patient is following a comprehensive diabetic treatment plan. They are checking their feet daily for calluses and nonhealing ulcers. They are being seen for yearly dilated eye examinations. Goals: SBP less than 130, LDL less than 100, FBS less than 140, AC and A1C less than 7%. They are checking their BS daily, will which are reviewed at the office visit. Oct, Wellness examination (ICD-10 - Z00.00) Oct, Essential hypertension (ICD-10 - I10) This patient is instructed to consume a healthy, low-fat, low-salt diet. They are also encouraged to continue exercise to achieve/maintain a normal BMI. Oct, Hyperlipidemia type II (ICD-10 - E78.01) Diet and exercise with continued statin therapy. Oct, Pulmonary nodule, right (ICD-10 - R91.1) CT: 6-10mm RUL, RML 08/2021 CT: stable, decreasing GGO 11/2021 Continue surveillance w/ CT scans Oct, Malignant neoplasm of upper-inner quadrant of right female breast (ICD-10 - C50.211) Continue diagnostic mammogram Oct, Estrogen receptor positive status [ER+] (ICD-10 - Z17.0) Oct, Encounter for screening colonoscopy (ICD-10 - Z12.11) Asymptomatic patient w/ increased risk due to family hx of CRC. Recommend colonoscopy. [employer] Other 03-06-2023 Evaluation note* Encounter Date Diagnosis Assessment Notes Treatment Notes Treatment Clinical Notes Sep, Wellness examination (ICD-10 - Z00.00) [employer] Other 03-03-2023 Evaluation note* Encounter Date Diagnosis Assessment Notes Treatment Notes Treatment Clinical Notes Sep, Acute non-recurrent maxillary sinusitis (ICD-10 - J01.00) Instructed to use Robitussin or Mucinex for cough, saline or Flonase NS for congestion, Tylenol for pain and fever. Sep, Encounter by telehealth for suspected COVID-19 (ICD-10 - Z20.822) Aware of quarantine guidelines. Retest in 2 days if symptoms worsen [employer] Other 12-14-2022 Progress note Author Giovanna Shelton [facility] June 29, 2022 9:03am Note Date/Time June 29, 2022 8:52am [facility] [place] [address] Hem/Onc Follow Up Note - OP Signed Patient: Renuka Caceres MR#: [id number] : 1960 Acct:[id number] Age/Sex: 61 / F Type: REG RCR Copies to: MD Singh Greene DO James E Fanning, MD~ Subjective Date/Time of Service: Date of Service: 06/29/2022 Time of Service: 08:46 Chief Complaint: Patient is here for a 3 month follow up for right breast cancer. Taking Letrozole, voices no concerns. HPI: 06/29/2022: Renuka is here for follow-up for her right breast cancer on letrozole. She continues to do well without major joint complaints. She does note her hot flashes have increased since she started taking her diuretic in themornings about a month ago, but these remain tolerable. Otherwise no new complaints. Her energy is stable. She denies new lumps or skin changes on self-exam each month, and none noted on my exam in office today. She will follow-up with Dr. Hoffmann in 6 months. Next mammogram will be November. 04/13/2022: Renuka is here for follow-up on letrozole for her breast cancer. She is doing very well overall. She notes some muscular pain in her right side d/t increased physical activity. This comes and goes with exercise and is tolerable. She also has some knee pain with increased exercise d/t known meniscus injury. Otherwise she denies new complaints including hot flashes or worsening joint complaints. No skin changes or new lumps noted on self-exam. Shehad her baseline DEXA done on 01/18/2022 which showed normal bone density. She denies starting calcium and vitamin D previously so we again recommended she start supplementation while on letrozole. She will follow-up in [address] Hoffmann. 01/13/2022: Renuka is here for 3-month follow-up on letrozole therapy for T2 N0 M0 ER/VA positive breast cancer, status postlumpectomy in February 2021 with reexcision to negative margins.. She completed adjuvant radiation therapy March-April 2021. She started anastrozole in May 2022 but did not tolerate this well and stopped taking it 07/20/2021. She was changed to letrozole08/11/2021 and tolerates this well without significant hot flashes, myalgias, arthralgias. She has no skin changes, masses, or pain of the breast on self-exam. We reviewed her mammogram from [facility] performed 10/06/2021 which returned with heterogeneously dense breasts but no significant suspicious abnormalities and postsurgical changes in the right upper inner quadrant. She has not had baseline DEXA scan and we ordered this today. Advised to start calcium and vitamin D until DEXA findings which [facility] Next follow-up with nurse practitioner in 3 months, 6 months with hi. Moderate complexity visit over 25 minutes for transfer of oncology care and review of osteopenia screening and recommendations for supplemental calcium/vitamin D. 10/20/2021: Renuka presents today in follow-up for her breast cancer on letrozole. She previously was on anastrozole but did not tolerate this d/t multiple hot flashes during the day and throughout the night, interrupting her sleep. She stopped taking anastrozole on 07/20/2021 and was switched to letrozole on 08/11/2021. She is doing better on this and continues with hot flashes, but these are more tolerable/less frequent and do not wake her up throughout the night. Otherwise she denies any new symptoms and feels well overall. She denies any new lumps or skin changes on self-exam. Her last breast exam was June 2021. She is due for her mammogram this month and has these done at [place]. Eliazar get this record once it's completed. -- She will follow-up in [address] Hoffmann for exam and to follow-up on symptoms. She will call in sooner if needed. We will try to coordinate her next follow-up to be same day as her radiation follow-up appointment. 07/20/2021: Renuka presents in follow-up today July 20, 2021. She is having intractable hot flashes and night that keeps her up. She is on anastrozole. Renuka presented with breast cancer having had lumpectomy in January 31, 2021. She had a 4.5 cm invasive lobular breast cancer, 0 of 6 lymph nodes positive. ER and VA was positive, H ER 2 -. [facility] genetic testing was negative for BRCA 1 and 2. Oncotype DX showed low risk disease. She was started on radiation March 2021. Her family doctor is Dr. Juan Fowler and she was operated on by Dr. Salazar Kimble. CURYUNG: 60-year-old post-menopausal female- had menopause at age 53 and she did not takeany HRT. She is a non-smoker and drinks alcohol occasionally and she is Ab0. She had been asymptomatic but gets her regular screening mammograms which previously had shown a suspicious area in the right breast was being followed up. Her screening mammogram in October 2020 was abnormal and subsequent diagnostic mammogram and ultrasound study showed 11 x 10 x 10 mm shadowing lesion at 1 o'clock position in the right breast. She had a stereotactic core biopsy on 12/22/2020 with confirmation of lobular carcinoma. 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 6 sentinel nodes were negative for metastatic disease in the primary tumor measured 4.5 cm in diameter. Her margins of resection were positive inferiorly and posteriorly and subsequently, she had re-resection of the tumor bed on 02/23/2021. The finalsurgical margins were all negative and there was no residual carcinoma identified. Patient's Oncotype DX score is [address] Lopes did not plan to give any chemotherapy and she received a 6-week course of extermination therapy to the right breast and her treatment course was completed in May 2021. Patient was started on Arimidex at the end of May [address] Lopes. - Summary of Therapies Summary of Therapies: She had a stereotactic core biopsy on 12/22/2020 with confirmation of lobular carcinoma. 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 -- 6 sentinel nodes were negative for metastatic disease in the primary tumor measured 4.5 cm in diameter. Her margins of resection were positive inferiorly and posteriorly. -- Re-resection of the tumor bed on 02/23/2021. The final surgical margins were all negative and there was no residual carcinoma identified. 2) Received 6-week course of radiation therapy to the right breast from March 2021- May 2021. 3) Patient was started on Arimidex May 2021 (at [place]). Did not tolerated/t hot flashes, so switched to letrozole 08/11/2021 -- Will continue letrozole for 5 years (May 2026) ROS Details: All systems reviewed & no additional complaints except as documented PMFSH - Medical History Medical History: Medical History (Last Reviewed 01/13/22 @ 08:48 by Chiara Hoffmann MD) Adenocarcinoma of right breast Ankle fracture Hyperlipemia Hypertension Lumbosacral spondylolysis Plantar fasciitis Seasonal allergies - Surgical History Surgical History: Surgical History (Last Reviewed 01/13/22 @ 08:48 by Chiara Hoffmann MD) History of tonsillectomy - Family History Family History: Family History (Last Reviewed 01/13/22 @ 08:48 by Chiara Hoffmann MD) Sister No significant family history Family/Other No significant family history - Social History Smoking Status: Never smoker Substance Use Type: None Home Medications & Allergies Allergies Sulfa (Sulfonamide Antibiotics) Allergy (Verified 06/29/22 08:22) Itching Home Medications amlodipine 5 mg tablet 5 mg PO DAILY 03/11/21 [History Confirmed 06/29/22] atorvastatin 40 mg tablet 40 mg PO DAILY 03/11/21 [History Confirmed 06/29/22] benazepril 20 mg tablet 20 mg PO DAILY 03/11/21 [History Confirmed 06/29/22] biotin 1,000 mcg chewable tablet 1,000 mcg PO DAILY 03/11/21 [History Confirmed 06/29/22] hydrochlorothiazide 25 mg tablet 25 mg PO DAILY 03/11/21 [History Confirmed 06/29/22] metformin 500 mg tablet,extended release 24 hr 500 mg PO BID 03/11/21 [History Confirmed 06/29/22] hyaluronic bfnaar-usgqzmxfg-tqtt vera extract topical gel (RadiaPlexRx topical gel) 1 applic topical TID 05/18/21 [History Confirmed 06/29/22] mometasone 0.1 % topical cream 1 applic topical BID #60 grams 05/18/21 [Rx Confirmed 06/29/22] zinc oxide 10 % topical ointment 1 applic topical TID #60 grams 05/31/21 [Rx Confirmed 06/29/22] vitamin E 670 mg (1,000 unit) capsule 1,000 unit PO DAILY 07/20/21 [History Confirmed 06/29/22] letrozole 2.5 mg tablet 2.5 mg PO DAILY #90 tabs 12/07/21 [Rx Confirmed 06/29/22] ibuprofen 800 mg tablet 800 mg PO Q6H PRN Pain 01/13/22 [History Confirmed 06/29/22] Objective - Height/Weight Height/Weight: Height 5 ft 4 in Weight 93.7 kg - Vital Signs Vital Signs: 06/29/22 08:22 Pulse Rate [Left Brachial] 87 Respiratory Rate 20 Blood Pressure [Left Arm] 157/87 H 02 Sat by Pulse Oximetry 97 Oxygen Delivery Method Room Air - Pain Right Axillary Pain Intensity: 5 - Distress Screening Distress Screen Results: RN Distress Screening Start: 03/12/21 10:55 Freq: Status: Active Protocol: Document 04/27/21 11:19 DB (Rec: 04/27/21 11:19 DB [email or web address]) Distress Screening Distress Score: 1 Physical Concerns Feeling tired or a lack of energy Distress Screening Total 1 Physical Exam Narrative: CONSTITUTIONAL: The patient is in no acute distress. HEAD / FACE: Normocephalic; atraumatic, no scleral icterus. LYMPHATIC: No palpable cervical, supraclavicular, or axillary adenopathy. BREASTS: Right upper inner quadrant well-healed lumpectomy scar. No lumps or skin changes noted, no nipple discharge or deviation. No axillary adenopathy RESPIRATORY: Normal to inspection. Lungs clear to auscultation bilaterally, no wheezes, rhonchi or rales. CARDIOVASCULAR: Regular rate and rhythm. No murmurs, gallops, or rubs. ABDOMEN: Bowel sounds normoactive. Soft, nontender and non-distended. No hepatosplenomegaly. No masses noted. INTEGUMENTARY: The skin is unremarkable. No rashes. No suspicious lesions MUSCULOSKELETAL: Normal musculature, no joint deformities or abnormalities, normal range of motion for all four extremities. EXTREMITIES: No edema, cyanosis or clubbing. NEUROLOGICAL: Alert and oriented. Cranial nerves intact. No gross motor or sensory deficits. Ambulates independently. PSYCHIATRIC: No anxiety or evidence of depression. 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 6 sentinel nodes were negative for metastatic disease in the primary tumor measured 4.5 cm in diameter. Her margins of resection were positive inferiorly and posteriorly and subsequently, she had re-resection of the tumor bed on 02/23/2021. The finalsurgical margins were all negative and there was no residual carcinoma identified. Estrogen receptor 95%, progesterone receptor 90%, HER2 negative (1+ IHC) documented on original biopsy 01/29/2021 Patient's Oncotype DX score is 24 and chemo was not recommended (1) Malignant neoplasm of upper-inner quadrant of right female breast Qualifiers: Estrogen receptor status: positive Qualified Code(s): C50.211 - Malignant neoplasm of upper-inner quadrant of right female breast; Z17.0 - Estrogen receptor positive status [ER+] 61-year-old post-menopausal female- had menopause at age 53 and she did not take any HRT. She is a non-smoker and drinks alcohol occasionally and she is Ab0. She had been asymptomatic but gets her regular screening mammograms which previously had shown a suspicious area in the right breast was being followed up. Her screening mammogram in October 2020 was abnormal and subsequent diagnostic mammogram and ultrasound study showed 11 x 10 x 10 mm shadowing lesion at 1 o'clock position in the right breast. She had a stereotactic core biopsy on 12/22/2020 with confirmation of lobular carcinoma. 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 6 sentinel nodes were negative for metastatic disease in the primary tumor measured 4.5 cm in diameter. Her margins of resection were positive inferiorly and posteriorly and subsequently, she had re-resection of the tumor bed on 02/23/2021. The final surgical margins were all negative and there was no residual carcinoma identified. Patient's Oncotype DX score is [address] Lopes did not plan to give any chemotherapy and she received a 6-week course of radiation therapy to the right breast and her treatment course was completed in May 2021. Patient was started on Arimidex at the end of May [address] Lopes at [place]. 07/20/2021: Stopped anastrozole due to severe hot flashes. The patient will call me in 2 weeks for follow-up to see if the hot flashes have resolved. If they have, we will try her on letrozole. If they have not we will talk to her about other options. One option could be tamoxifen or another selective estrogen receptor modulator. There are other modalities we could also try to alleviate hot flashes as well. She was not having this prior to initiation of anastrozole. 08/11/2021 phone call with improvement in hot flashes. Patient switched to letrozole at this time. 10/20/2021: She continues to tolerate the letrozole ok with less frequent hot flashes. Otherwise she denies any new complaints. No new lumps or skin changes on self- exam noted. She will have her mammogram done this month at [place] and will have results sent to us. Plan for follow-up in [address] Hoffmann for exam. We will coordinate this with her upcoming radiation oncology follow-up visit. She has no questions today and is in agreement with this plan. 01/13/2022: Still tolerating letrozole well with no findings of recurrence on clinical exam or mammogram reviewed from 12/06/2021. No baseline DEXA scan records therefore we will order DEXA scan today. She has advised to take supplemental calcium and vitamin D and to continue her letrozole 2.5 mg daily. Next follow-up for clinical exam with nurse practitioner in 3 months and with me in 6 months. She no longer follows with her primary surgeon. She also was evaluated by radiation oncology today with no new recommendations. This is a moderate complexity visit over 25 minutes for transfer of care from Dr. Lopes who is no longer in the practice. 04/13/2022: She continues to do well on letrozole without worsening hot flashes or joint complaints. Her baseline DEXA shows normal bone density. She will see Dr. Hoffmann in 3 months for follow-up and next mammogram will be due in November 2022. She has no questions and is in agreement with this plan. 06/29/2022: She continues to do well without evidence of recurrence on exam. She remains on letrozole without worsening joint complaints. She does note an increase in hot flashes since switching her diuretic dosing to the morning, but still tolerable. Her next mammogram will be due in November 2022. She will follow-up with Dr. Hoffmann in 6 months, sooner as needed. (2) Osteoporosis screening DEXA ordered for osteoporosis screening on aromatase inhibitor therapy. We discussed minimum calcium 500 mg with 400 international units vitamin D daily. If she has evidence of osteopenia or osteoporosis we may change her calcium and vitamin D recommendations and consider addition of bisphosphonate therapy. 04/13/2022: Baseline DEXA done 01/18/2022 with normal bone density. Will plan for repeat in January 2024. We again recommended initiation of calcium and vitamin D daily while on letrozole. 06/29/2022: She is on vitamin D, we recommended she add in calcium with this and she is in agreement. (3) Encounter for monitoring aromatase inhibitor therapy Initial poor tolerance of anastrozole therapy started in early July 2021. She now has nearly resolved hot flashes on letrozole 2.5 mg daily started 08/11/2021. Continue for total 5 to 7-year course of aromatase inhibitor therapy. 06/29/2022: Hot flashes increased over the last month d/t diuretic dosing time change. These remain tolerable overall - Chemo Plan Chemo Plan (Dose, Rate, Freq): Letrozole 2.5 mg daily since July 2021. Continue for 5 to 7-year course. Goal of Treatment: Curative - Time with Patient Time Spent with Patient (Follow Up Visit): 25 minutes Coordination of Care & Counseling Time: Greater than 50% of time spent with patient was for coordination of care (as documented) and [id number] counseling of patient and/or family. Dictated By: Giovanna Shelton APRN DD/ [id number] Signed By: <Electronically signed by YEFRI Shelton> 06/29/22 0903 [facility] Work Phone: [phone]) 678-345609-28-2022 Progress note Author Giovanna Shelton [facility] April 13, 2022 9:15am Note Date/Time April 13, 2022 8:39am [facility] [place] [address] Hem/Onc Follow Up Note - OP Signed Patient: Renuka Caceres MR#: [id number] : 1960 Acct:[id number] Age/Sex: 61 / F Type: REG RCR Copies to: MD Singh Greene DO James E Fanning, MD~ Subjective Date/Time of Service: Date of Service: 04/13/2022 Time of Service: 08:26 Chief Complaint: Patient is here for a 3 month follow up for right breast cancer. She is taking Letrozole, voices no concerns at this time. HPI: 04/13/2022: Renuka is here for follow-up on letrozole for her breast cancer. She is doing very well overall. She notes some muscular pain in her right side d/t increased physical activity. This comes and goes with exercise and is tolerable. She also has some knee pain with increased exercise d/t known meniscus injury. Otherwise she denies new complaints including hot flashes or worsening joint complaints. No skin changes or new lumps noted on self-exam. Shehad her baseline DEXA done on 01/18/2022 which showed normal bone density. She denies starting calcium and vitamin D previously so we again recommended she start supplementation while on letrozole. She will follow-up in [address] Hoffmann. 01/13/2022: Renuka is here for 3-month follow-up on letrozole therapy for T2 N0 M0 ER/VA positive breast cancer, status postlumpectomy in February 2021 with reexcision to negative margins.. She completed adjuvant radiation therapy March-April 2021. She started anastrozole in May 2022 but did not tolerate this well and stopped taking it 07/20/2021. She was changed to letrozole 08/11/2021 and tolerates this well without significant hot flashes, myalgias, arthralgias. She has no skin changes, masses, or pain of the breast on self-exam. We reviewed her mammogram from [facility] performed 10/06/2021 which returned with heterogeneously dense breasts but no significant suspicious abnormalities and postsurgical changes in the right upper inner quadrant. She has not had baseline DEXA scan and we ordered this today. Advised to start calcium and vitamin D until DEXA findings which she will be contacted with afterreview. Next follow-up with nurse practitioner in 3 months, 6 months with hi. Moderate complexity visit over 25 minutes for transfer of oncology care and review of osteopenia screening and recommendations for supplemental calcium/vitamin D. 10/20/2021: Renuka presents today in follow-up for her breast cancer on letrozole. She previously was on anastrozole but did not tolerate this d/t multiple hot flashes during the day and throughout the night, interrupting her sleep. She stopped taking anastrozole on 07/20/2021 and was switched to letrozole on 08/11/2021. She is doing better on this and continues with hot flashes, but these are more tolerable/less frequent and do not wake her up throughout the night. Otherwise she denies any new symptoms and feels well overall. She denies any new lumps or skin changes on self-exam. Her last breast exam was June 2021. She is due for her mammogram this month and has these done at [place]. [facility] get this record once it's completed. -- She will follow-up in [address] Hoffmann for exam and to follow-up on symptoms. She will call in sooner if needed. We will try to coordinate her next follow-up to be same day as her radiation follow-up appointment. 07/20/2021: Renuka presents in follow-up today July 20, 2021. She is having intractable hot flashes and night that keeps her up. She is on anastrozole. Renuka presented with breast cancer having had lumpectomy in January 31, 2021. She had a 4.5 cm invasive lobular breast cancer, 0 of 6 lymph nodes positive. ER and VA was positive, H ER 2 -. [facility] genetic testing was negative for BRCA 1 and 2. Oncotype DX showed low risk disease. She was started on radiation March 2021. Her family doctor is Dr. Juan Fowler and she was operated on by Dr. Salazar Kimble. CURYUNG: 60-year-old post-menopausal female- had menopause at age 53 and she did not takeany HRT. She is a non-smoker and drinks alcohol occasionally and she is Ab0. She had been asymptomatic but gets her regular screening mammograms which previously had shown a suspicious area in the right breast was being followed up. Her screening mammogram in October 2020 was abnormal and subsequent diagnostic mammogram and ultrasound study showed 11 x 10 x 10 mm shadowing lesion at 1 o'clock position in the right breast. She had a stereotactic core biopsy on 12/22/2020 with confirmation of lobular carcinoma. 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 6 sentinel nodes were negative for metastatic disease in the primary tumor measured 4.5 cm in diameter. Her margins of resection were positive inferiorly and posteriorly and subsequently, she had re-resection of the tumor bed on 02/23/2021. The finalsurgical margins were all negative and there was no residual carcinoma identified. Patient's Oncotype DX score is [address] Lopes did not plan to give any chemotherapy and she received a 6-week course of extermination therapy to the right breast and her treatment course was completed in May 2021. Patient was started on Arimidex at the end of May [address] Lopes. - Summary of Therapies Summary of Therapies: She had a stereotactic core biopsy on 12/22/2020 with confirmation of lobular carcinoma. 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 -- 6 sentinel nodes were negative for metastatic disease in the primary tumor measured 4.5 cm in diameter. Her margins of resection were positive inferiorly and posteriorly. -- Re-resection of the tumor bed on 02/23/2021. The final surgical margins were all negative and there was no residual carcinoma identified. 2) Received 6-week course of radiation therapy to the right breast from March 2021- May 2021. 3) Patient was started on Arimidex May 2021 (at [place]). Did not tolerated/t hot flashes, so switched to letrozole 08/11/2021 -- Will continue letrozole for 5 years (May 2026) ROS Details: All systems reviewed & no additional complaints except as documented PMF - Medical History Medical History: Medical History (Last Reviewed 01/13/22 @ 08:48 by Chiara Hoffmann MD) Adenocarcinoma of right breast Ankle fracture Hyperlipemia Hypertension Lumbosacral spondylolysis Plantar fasciitis Seasonal allergies - Surgical History Surgical History: Surgical History (Last Reviewed 01/13/22 @ 08:48 by Chiara Hoffmann MD) History of tonsillectomy - Family History Family History: Family History (Last Reviewed 01/13/22 @ 08:48 by Chiara Hoffmann MD) Sister No significant family history Family/Other No significant family history - Social History Smoking Status: Never smoker Substance Use Type: None Home Medications & Allergies Allergies Sulfa (Sulfonamide Antibiotics) Allergy (Verified 04/13/22 08:04) Itching Home Medications amlodipine 5 mg tablet 5 mg PO DAILY 03/11/21 [History Confirmed 04/13/22] atorvastatin 40 mg tablet 40 mg PO DAILY 03/11/21 [History Confirmed 04/13/22] benazepril 20 mg tablet 20 mg PO DAILY 03/11/21 [History Confirmed 04/13/22] biotin 1,000 mcg chewable tablet 1,000 mcg PO DAILY 03/11/21 [History Confirmed 04/13/22] hydrochlorothiazide 25 mg tablet 25 mg PO DAILY 03/11/21 [History Confirmed 04/13/22] metformin 500 mg tablet,extended release 24 hr 500 mg PO BID 03/11/21 [History Confirmed 04/13/22] hyaluronic keqgux-nvgtkruna-qmck vera extract topical gel (RadiaPlexRx topical gel) 1 applic topical TID 05/18/21 [History Confirmed 04/13/22] mometasone 0.1 % topical cream 1 applic topical BID #60 grams 05/18/21 [Rx Confirmed 04/13/22] zinc oxide 10 % topical ointment 1 applic topical TID #60 grams 05/31/21 [Rx Confirmed 04/13/22] vitamin E 670 mg (1,000 unit) capsule 1,000 unit PO DAILY 07/20/21 [History Confirmed 04/13/22] letrozole 2.5 mg tablet 2.5 mg PO DAILY #90 tabs 12/07/21 [Rx Confirmed 04/13/22] ibuprofen 800 mg tablet 800 mg PO Q6H PRN Pain 01/13/22 [History Confirmed 04/13/22] Objective - Height/Weight Height/Weight: Height 5 ft 4 in Weight 91.943 kg - Vital Signs Vital Signs: 04/13/22 08:05 Pulse Rate [Left Brachial] 98 H Respiratory Rate 20 Blood Pressure [Left Arm] 147/83 H 02 Sat by Pulse Oximetry 96 - Pain Right Axillary Pain Intensity: 5 - Distress Screening Distress Screen Results: RN Distress Screening Start: 03/12/21 10:55 Freq: Status: Active Protocol: Document 04/27/21 11:19 DB (Rec: 04/27/21 11:19 DB [email or web address]) Distress Screening Distress Score: 1 Physical Concerns Feeling tired or a lack of energy Distress Screening Total 1 Physical Exam Narrative: CONSTITUTIONAL: The patient is in no acute distress. HEAD / FACE: Normocephalic; atraumatic, no scleral icterus. LYMPHATIC: No palpable cervical, supraclavicular, or axillary adenopathy. BREASTS: Right upper inner quadrant well-healed lumpectomy scar. Full exam deferred today RESPIRATORY: Normal to inspection. Lungs clear to auscultation bilaterally, no wheezes, rhonchi or rales. CARDIOVASCULAR: Regular rate and rhythm. No murmurs, gallops, or rubs. ABDOMEN: Bowel sounds normoactive. Soft, nontender and non-distended. No hepatosplenomegaly. No masses. INTEGUMENTARY: The skin is unremarkable. No rashes. No suspicious lesions MUSCULOSKELETAL: Normal musculature, no joint deformities or abnormalities, normal range of motion for all four extremities. EXTREMITIES: No edema, cyanosis or clubbing. NEUROLOGICAL: Alert and oriented. Cranial nerves intact. No gross motor or sensory deficits. Ambulates independently. PSYCHIATRIC: No anxiety or evidence of depression. 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 6 sentinel nodes were negative for metastatic disease in the primary tumor measured 4.5 cm in diameter. Her margins of resection were positive inferiorly and posteriorly and subsequently, she had re-resection of the tumor bed on 02/23/2021. The finalsurgical margins were all negative and there was no residual carcinoma identified. Estrogen receptor 95%, progesterone receptor 90%, HER2 negative (1+ IHC) documented on original biopsy 01/29/2021 Patient's Oncotype DX score is 24 and chemo was not recommended (1) Malignant neoplasm of upper-inner quadrant of right female breast Qualifiers: Estrogen receptor status: positive Qualified Code(s): C50.211 - Malignant neoplasm of upper-inner quadrant of right female breast; Z17.0 - Estrogen receptor positive status [ER+] 61-year-old post-menopausal female- had menopause at age 53 and she did not take any HRT. She is a non-smoker and drinks alcohol occasionally and she is Ab0. She had been asymptomatic but gets her regular screening mammograms which previously had shown a suspicious area in the right breast was being followed up. Her screening mammogram in October 2020 was abnormal and subsequent diagnostic mammogram and ultrasound study showed 11 x 10 x 10 mm shadowing lesion at 1 o'clock position in the right breast. She had a stereotactic core biopsy on 12/22/2020 with confirmation of lobular carcinoma. 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 6 sentinel nodes were negative for metastatic disease in the primary tumor measured 4.5 cm in diameter. Her margins of resection were positive inferiorly and posteriorly and subsequently, she had re-resection of the tumor bed on 02/23/2021. The final surgical margins were all negative and there was no residual carcinoma identified. Patient's Oncotype DX score is [address] Lopes did not plan to give any chemotherapy and she received a 6-week course of radiation therapy to the right breast and her treatment course was completed in May 2021. Patient was started on Arimidex at the end of May [address] Lopes at [place]. 07/20/2021: Stopped anastrozole due to severe hot flashes. The patient will call me in 2 weeks for follow-up to see if the hot flashes have resolved. If they have, we will try her on letrozole. If they have not we will talk to her about other options. One option could be tamoxifen or another selective estrogen receptor modulator. There are other modalities we could also try to alleviate hot flashes as well. She was not having this prior to initiation of anastrozole. 08/11/2021 phone call with improvement in hot flashes. Patient switched to letrozole at this time. 10/20/2021: She continues to tolerate the letrozole ok with less frequent hot flashes. Otherwise she denies any new complaints. No new lumps or skin changes on self- exam noted. She will have her mammogram done this month at [place] and will have results sent to us. Plan for follow-up in [address] Hoffmann for exam. We will coordinate this with her upcoming radiation oncology follow-up visit. She has no questions today and is in agreement with this plan. 01/13/2022: Still tolerating letrozole well with no findings of recurrence on clinical exam or mammogram reviewed from 12/06/2021. No baseline DEXA scan records therefore we will order DEXA scan today. She has advised to take supplemental calcium and vitamin D and to continue her letrozole 2.5 mg daily. Next follow-up for clinical exam with nurse practitioner in 3 months and with me in 6 months. She no longer follows with her primary surgeon. She also was evaluated by radiation oncology today with no new recommendations. This is a moderate complexity visit over 25 minutes for transfer of care from Dr. Lopes who is no longer in the practice. 04/13/2022: She continues to do well on letrozole without worsening hot flashes or joint complaints. Her baseline DEXA shows normal bone density. She will see Dr. Hoffmann in 3 months for follow-up and next mammogram will be due in November 2022. She has no questions and is in agreement with this plan. (2) Osteoporosis screening DEXA ordered for osteoporosis screening on aromatase inhibitor therapy. We discussed minimum calcium 500 mg with 400 international units vitamin D daily. If she has evidence of osteopenia or osteoporosis we may change her calcium and vitamin D recommendations and consider addition of bisphosphonate therapy. 04/13/2022: Baseline DEXA done 01/18/2022 with normal bone density. Will plan for repeat in January 2024. We again recommended initiation of calcium and vitamin D daily while on letrozole. (3) Encounter for monitoring aromatase inhibitor therapy Initial poor tolerance of anastrozole therapy started in early July 2021. She now has nearly resolved hot flashes on letrozole 2.5 mg daily started 08/11/2021. Continue for total 5 to 7-year course of aromatase inhibitor therapy. - Chemo Plan Chemo Plan (Dose, Rate, Freq): Letrozole 2.5 mg daily since July 2021. Continue for 5 to 7-year course. Goal of Treatment: Curative - Time with Patient Time Spent with Patient (Follow Up Visit): 25 minutes Coordination of Care & Counseling Time: Greater than 50% of time spent with patient was for coordination of care (as documented) and [id number] counseling of patient and/or family. Dictated By: Giovanna Shelton APRN DD/ 5 Signed By: <Electronically signed by YEFRI Shelton> 04/13/22 0915 [facility] Work Phone: [phone]) 292-798909-01-2022 Evaluation note* Encounter Date Diagnosis Assessment Notes Treatment Notes Treatment Clinical Notes Mar, Acute pain of right knee (ICD-10 - M25.561) Mar, Arthritis of right knee (ICD-10 - M17.11) Radiographs reviewed with patient. The patient is suffering from degenerative arthritis involving the knee. We discussed the conservative treatment options which can be beneficial in relieving pain, including gentle non-impact motion exercise and non-steroidal anti-inflammatory medication. We discussed the use of occasional cortisone injections that can provide pain relief as well as hyaluronan lubricant injection. Patient voices desire to avoid oral NSAIDs and cortisone injection. Instructed on use of OTC tumeric to aid in decreasing inflammation, as well as use of voltaren gel. [employer] Other 06-30-2022 Progress note Author Chiara Hoffmann [facility] January 13, 2022 12:36pm Note Date/Time January 13, 2022 8:34 am [facility] [place] [address] Hem/Onc Follow Up Note - OP Signed Patient: Renuka Caceres MR#: [id number] : 1960 Acct:[id number] Age/Sex: 61 / F Type: REG RCR Copies to: DO Daniel Calvert MD Michael R Nill, MD FACS~ Subjective Date/Time of Service: Date of Service: 01/13/2022 Time of Service: 08:32 Chief Complaint: Patient is here today for a 3 month follow up visit for breast cancer and no new concerns HPI: 01/13/2022: Renuka is here for 3-month follow-up on letrozole therapy for T2 N0 M0 ER/VA positive breast cancer, status postlumpectomy in February 2021 with reexcision to negative margins.. She completed adjuvant radiation therapy March-April 2021. She started anastrozole in May 2022 but did not tolerate this well and stopped taking it 07/20/2021. She was changed to letrozole08/11/2021 and tolerates this well without significant hot flashes, myalgias, arthralgias. She has no skin changes, masses, or pain of the breast on self-exam. We reviewed her mammogram from [facility] performed 10/06/2021 which returned with heterogeneously dense breasts but no significant suspicious abnormalities and postsurgical changes in the right upper inner quadrant. She has not had baseline DEXA scan and we ordered this today. Advised to start calcium and vitamin D until DEXA findings which she will be contacted with afterreview. Next follow-up with nurse practitioner in 3 months, 6 months with me. Moderate complexity visit over 25 minutes for transfer of oncology care and review of osteopenia screening and recommendations for supplemental calcium/vitamin D. 10/20/2021: Renuka presents today in follow-up for her breast cancer on letrozole. She previously was on anastrozole but did not tolerate this d/t multiple hot flashes during the day and throughout the night, interrupting her sleep. She stopped taking anastrozole on 07/20/2021 and was switched to letrozole on 08/11/2021. She is doing better on this and continues with hot flashes, but these are more tolerable/less frequent and do not wake her up throughout the night. Otherwise she denies any new symptoms and feels well overall. She denies any new lumps or skin changes on self-exam. Her last breast exam was June 2021. She is due for her mammogram this month and has these done at [place]. Wewill get this record once it's completed. -- She will follow-up in [address] Hoffmann for exam and to follow-up on symptoms. She will call in sooner if needed. We will try to coordinate her next follow-up to be same day as her radiation follow-up appointment. 07/20/2021: Renuka presents in follow-up today July 20, 2021. She is having intractable hot flashes and night that keeps her up. She is on anastrozole. Renuka presented with breast cancer having had lumpectomy in January 31, 2021. She had a 4.5 cm invasive lobular breast cancer, 0 of 6 lymph nodes positive. ER and VA was positive, H ER 2 -. [facility] genetic testing was negative for BRCA 1 and 2. Oncotype DX showed low risk disease. She was started on radiation March 2021. Her family doctor is Dr. Juan Fowler and she was operated on by Dr. Salazar Kimble. CURYUNG: 60-year-old post-menopausal female- had menopause at age 53 and she did not takeany HRT. She is a non-smoker and drinks alcohol occasionally and she is Ab0. She had been asymptomatic but gets her regular screening mammograms which previously had shown a suspicious area in the right breast was being followed up. Her screening mammogram in October 2020 was abnormal and subsequent diagnostic mammogram and ultrasound study showed 11 x 10 x 10 mm shadowing lesion at 1 o'clock position in the right breast. She had a stereotactic core biopsy on 12/22/2020 with confirmation of lobular carcinoma. 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 6 sentinel nodes were negative for metastatic disease in the primary tumor measured 4.5 cm in diameter. Her margins of resection were positive inferiorly and posteriorly and subsequently, she had re-resection of the tumor bed on 02/23/2021. The finalsurgical margins were all negative and there was no residual carcinoma identified. Patient's Oncotype DX score is [address] Lopes did not plan to give any chemotherapy and she received a 6-week course of extermination therapy to the right breast and her treatment course was completed in May 2021. Patient was started on Arimidex at the end of May [address] Lopes. - Summary of Therapies Summary of Therapies: She had a stereotactic core biopsy on 12/22/2020 with confirmation of lobular carcinoma. 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 -- 6 sentinel nodes were negative for metastatic disease in the primary tumor measured 4.5 cm in diameter. Her margins of resection were positive inferiorly and posteriorly. -- Re-resection of the tumor bed on 02/23/2021. The final surgical margins were all negative and there was no residual carcinoma identified. 2) Received 6-week course of radiation therapy to the right breast from March 2021- May 2021. 3) Patient was started on Arimidex May 2021 (at [place]). Did not tolerated/t hot flashes, so switched to letrozole 08/11/2021 -- Will continue letrozole for 5 years (May 2026) ROS Details: All systems reviewed & no additional complaints except as documented Subjective/ROS - Narrative: CONSTITUTIONAL: Negative for fatigue, negative for fever or night sweats. HEAD AND NECK: Negative for changes in hearing and vision. Negative for mouth ulcers, nasal congestion and nasal drainage. PULMONARY: Negative for chest pain, cough and dyspnea. CARDIOVASCULAR: Negative for claudication and irregular heartbeat/palpitations. GASTROINTESTINAL: Negative for abdominal pain, constipation, decreased appetite,diarrhea, nausea or vomiting. GENITOURINARY: Negative for dysuria and hematuria. ENDOCRINE: Negative for cold intolerance and heat intolerance. CENTRAL NERVOUS SYSTEM: Negative for gait disturbance and headache. PSYCHIATRIC: Negative for anxiety or depression. DERMATOLOGICAL: Negative for pruritus and rash. Negative for suspicious skin lesions. MUSCULOSKELETAL: Negative for back pain and bone/joint symptoms. HEMATOLOGICAL: Negative for bleeding and easy bruising. Negative for history of transfusion or thromboembolic disease ALLERGY: Negative for environmental allergies and food allergies. PMF - History Attestation statement: The following information was validated with the patient. Source: Old Records Reviewed - Medical History Medical History: Medical History (Last Reviewed 01/13/22 @ 08:48 by Chiara Hoffmann MD) Adenocarcinoma of right breast Ankle fracture Hyperlipemia Hypertension Lumbosacral spondylolysis Plantar fasciitis Seasonal allergies - Surgical History Surgical History: Surgical History (Last Reviewed 01/13/22 @ 08:48 by Chiara Hoffmann MD) History of tonsillectomy - Family History Family History: Family History (Last Reviewed 01/13/22 @ 08:48 by Chiara Hoffmann MD) Sister No significant family history Family/Other No significant family history - Social History Smoking Status: Never smoker Substance Use Type: None Home Medications & Allergies Allergies Sulfa (Sulfonamide Antibiotics) Allergy (Verified 01/13/22 08:26) Itching Home Medications amlodipine 5 mg tablet 5 mg PO DAILY 03/11/21 [History Confirmed 01/13/22] atorvastatin 40 mg tablet 40 mg PO DAILY 03/11/21 [History Confirmed 01/13/22] benazepril 20 mg tablet 20 mg PO DAILY 03/11/21 [History Confirmed 01/13/22] biotin 1,000 mcg chewable tablet 1,000 mcg PO DAILY 03/11/21 [History Confirmed 01/13/22] hydrochlorothiazide 25 mg tablet 25 mg PO DAILY 03/11/21 [History Confirmed 01/13/22] metformin 500 mg tablet,extended release 24 hr 500 mg PO BID 03/11/21 [History Confirmed 01/13/22] hyaluronic glxmgu-ksitardpd-hrft vera extract topical gel (RadiaPlexRx) 1 applicTOPICAL TID 05/18/21 [History Confirmed 01/13/22] mometasone 0.1 % topical cream 1 applic TOPICAL BID #60 g 05/18/21 [Rx Confirmed 01/13/22] zinc oxide 10 % topical ointment 1 applic TOPICAL TID #60 g 05/31/21 [Rx Confirmed 01/13/22] vitamin E 1,000 unit capsule 1,000 unit PO DAILY 07/20/21 [History Confirmed 01/13/22] letrozole 2.5 mg tablet 2.5 mg PO DAILY #90 tab 12/07/21 [Rx Confirmed 01/13/22] ibuprofen 800 mg tablet 800 mg PO Q6H PRN 01/13/22 [History Confirmed 01/13/22] Objective - Height/Weight Height/Weight: Height 5 ft 4 in Weight 91.626 kg - Vital Signs Vital Signs: 01/13/22 08:26 Temperature 97.8 F Pulse Rate [Left Brachial] 82 Respiratory Rate 16 Blood Pressure [Left Arm] 157/79 H 02 Sat by Pulse Oximetry 96 - Pain Right Axillary Pain Intensity: 5 - Distress Screening Distress Screen Results: RN Distress Screening Start: 03/12/21 10:55 Freq: Status: Active Protocol: Document 04/27/21 11:19 DB (Rec: 04/27/21 11:19 DB [email or web address]) Distress Screening Distress Score: 1 Physical Concerns Feeling tired or a lack of energy Distress Screening Total 1 Physical Exam Narrative: CONSTITUTIONAL: The patient is in no acute distress. HEAD / FACE: Normocephalic; atraumatic, no scleral icterus. LYMPHATIC: No palpable cervical, supraclavicular, or axillary adenopathy. BREASTS: Right upper inner quadrant well-healed lumpectomy scar without masses or tenderness. Left breast exam unremarkable. No lymphedema of either upper extremity. No skin changes, nipple discharge, or nipple deviation. RESPIRATORY: Normal to inspection. Lungs clear to auscultation bilaterally, no wheezes, rhonchi or rales. CARDIOVASCULAR: Regular rate and rhythm. No murmurs, gallops, or rubs. VASCULAR: Carotid, radial, femoral and pedal pulses present bilaterally. No bruits. ABDOMEN: Bowel sounds normoactive. Soft, nontender and non-distended. No hepatosplenomegaly. No masses. INTEGUMENTARY: The skin is unremarkable. No rashes. No suspicious lesions BACK / SPINE: The back is nontender. MUSCULOSKELETAL: Normal musculature, no joint deformities or abnormalities, normal range of motion for all four extremities. EXTREMITIES: No edema, cyanosis or clubbing. NEUROLOGICAL: Alert and oriented. Cranial nerves intact. No gross motor or sensory deficits. Ambulates independently. PSYCHIATRIC: No anxiety or evidence of depression. - ECOG Performance Status ECOG Score: 0 Results - Labs Labs: No labs for review. - Impressions 12/08/2021: Heterogeneously dense breast which may obscure small masses, no significant suspicious finding. Postsurgical changes/scarring within the upper inner quadrant of the right breast. No abnormal findings in the left breast. No Baseline DEXA in record. Ordered today. 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 6 sentinel nodes were negative for metastatic disease in the primary tumor measured 4.5 cm in diameter. Her margins of resection were positive inferiorly and posteriorly and subsequently, she had re-resection of the tumor bed on 02/23/2021. The finalsurgical margins were all negative and there was no residual carcinoma identified. Estrogen receptor 95%, progesterone receptor 90%, HER2 negative (1+ IHC) documented on original biopsy 01/29/2021 Patient's Oncotype DX score is 24 and chemo was not recommended (1) Malignant neoplasm of upper-inner quadrant of right female breast Qualifiers: Estrogen receptor status: positive Qualified Code(s): C50.211 - Malignant neoplasm of upper-inner quadrant of right female breast; Z17.0 - Estrogen receptor positive status [ER+] 61-year-old post-menopausal female- had menopause at age 53 and she did not take any HRT. She is a non-smoker and drinks alcohol occasionally and she is Ab0. She had been asymptomatic but gets her regular screening mammograms which previously had shown a suspicious area in the right breast was being followed up. Her screening mammogram in October 2020 was abnormal and subsequent diagnostic mammogram and ultrasound study showed 11 x 10 x 10 mm shadowing lesion at 1 o'clock position in the right breast. She had a stereotactic core biopsy on 12/22/2020 with confirmation of lobular carcinoma. 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 6 sentinel nodes were negative for metastatic disease in the primary tumor measured 4.5 cm in diameter. Her margins of resection were positive inferiorly and posteriorly and subsequently, she had re-resection of the tumor bed on 02/23/2021. The final surgical margins were all negative and there was no residual carcinoma identified. Patient's Oncotype DX score is [address] Lopes did not plan to give any chemotherapy and she received a 6-week course of radiation therapy to the right breast and her treatment course was completed in May 2021. Patient was started on Arimidex at the end of May [address] Lopes at [place]. 07/20/2021: Stopped anastrozole due to severe hot flashes. The patient will call me in 2 weeks for follow-up to see if the hot flashes have resolved. If they have, we will try her on letrozole. If they have not we will talk to her about other options. One option could be tamoxifen or another selective estrogen receptor modulator. There are other modalities we could also try to alleviate hot flashes as well. She was not having this prior to initiation of anastrozole. 08/11/2021 phone call with improvement in hot flashes. Patient switched to letrozole at this time. 10/20/2021: She continues to tolerate the letrozole ok with less frequent hot flashes. Otherwise she denies any new complaints. No new lumps or skin changes on self- exam noted. She will have her mammogram done this month at [place] and will have results sent to us. Plan for follow-up in [address] Hoffmann for exam. We will coordinate this with her upcoming radiation oncology follow-up visit. She has no questions today and is in agreement with this plan. 01/13/2022: Still tolerating letrozole well with no findings of recurrence on clinical exam or mammogram reviewed from 12/06/2021. No baseline DEXA scan records therefore we will order DEXA scan today. She has advised to take supplemental calcium and vitamin D and to continue her letrozole 2.5 mg daily. Next follow-up for clinical exam with nurse practitioner in 3 months and with me in 6 months. She no longer follows with her primary surgeon. She also was evaluated by radiation oncology today with no new recommendations. This is a moderate complexity visit over 25 minutes for transfer of care from Dr. Lopes who is no longer in the practice. (2) Osteoporosis screening DEXA ordered for osteoporosis screening on aromatase inhibitor therapy. We discussed minimum calcium 500 mg with 400 international units vitamin D daily. If she has evidence of osteopenia or osteoporosis we may change her calcium and vitamin D recommendations and consider addition of bisphosphonate therapy. (3) Encounter for monitoring aromatase inhibitor therapy Initial poor tolerance of anastrozole therapy started in early July 2021. She now has much more tolerable hot flashes on letrozole 2.5 mg daily started 08/11/2021. Continue for total 5 to 7-year course of aromatase inhibitor therapy. - Chemo Plan Chemo Plan (Dose, Rate, Freq): Letrozole 2.5 mg daily since July 2021. Continue for 5 to 7-year course. Goal of Treatment: Curative - Time with Patient Time Spent with Patient (Follow Up Visit): 25 minutes Coordination of Care & Counseling Time: Greater than 50% of time spent with patient was for coordination of care (as documented) and [id number] counseling of patient and/or family. Dictated By: Chiara Hoffmann MD DD/ Signed By: <Electronically signed by MD Chiara Hoffmann> 01/13/22 1236 [facility] Work Phone: 1(856) 266-594106-30-2022 Progress note Author Darshan Solomon [facility] January 13, 2022 9:17am Note Date/Time January 13, 2022 8:59 am [facility] at [address] [address] Rad Onc Follow Up Note - OP Signed Patient: Renuka Caceres MR#: [id number] : 1960 Acct:[id number] Age/Sex: 61 / F Type: REG RCR Copies to: MD Singh Greene DO James E Fanning, MD Michael R Nill, MD FACS~ Assessment & Plan (1) Malignant neoplasm of upper-inner quadrant of right female breast Plan: RTC PRN 61-year-old female with invasive lobular carcinoma of the upper medial quadrant of the right breast, grade 1 with associated DCIS and LCIS, pathological stage pT2 pN0 M0, ER positive, VA positive and HER-2/rikki negative, stage Ib. Patient completed breast conserving therapy followed by adjuvant radiation to the right whole breast to a dose of 50 [place] in 25 fractions under the care of Dr. Durbin. She also received a 10 [place] 4 fraction boost. Course was completed in May 2021. Since completion patient has been initiated on Arimidex which she is tolerating well. On exam today she has recovered from her radiation. Exam is BRUCE. I am pleased with her clinical progress. In November 2021 patient underwent her first posttreatment screening mammogram which was essentially negative showing only stable postoperative change in the right breast. She will continue to follow with her primary care physician for screening mammography as well as medical oncology due to her ongoing endocrine therapy so we will discharge her today in their care. We are happy to see her back at any time if there is a need for additional radiation or radiation related concerns. 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 6 sentinel nodes were negative for metastatic disease in the primary tumor measured 4.5 cm in diameter. Her margins of resection were positive inferiorly and posteriorly and subsequently, she had re-resection of the tumor bed on 02/23/2021. The final surgical margins were all negative and there was no residual carcinoma identified. Patient's Oncotype DX score is 24 and chemo was not recommended per the notes. She received a 6-week course of extermination therapy to the right breast under the care of Dr. Durbin. She received 50Gy/25 fractions to the whole breast followed by 10Gy/4fx to cavity, completed on 06/03/2021 Patient was started on Arimidex Today patient states overall she is doing well. She is tolerating the Arimidex well with no complaints. She recently completed her screening mammogram at an outside facility and states this was negative. Physical exam: General: Alert and oriented, no acute distress. HEENT: Normocephalic, extraocular movements intact Chest: Normal work of breathing on room air Breast: Treated right breast shows mild tanning consistent with the prior radiation field. There is no significant radiation fibrosis. Surgical incisions are well-healed. There is no residual erythema nor desquamation. No palpable mass or abnormality. Contralateral breast within normal limits. Abdomen: Nonacute MSK: Extremities within normal limits Dictated By: Darshan Solomon MD DD/ [id number] Signed By: <Electronically signed by Darshan Solomon MD> 01/13/22 0917 [facility] Work Phone: [phone]) 766-508306-19-2022 NotePROCEDURE: XR FINGER MIN 2 VIEWS HISTORY: Pain in first digit following hyperextension injury COMPARISON: None. FINDINGS: BONES:2 tiny corticated ossifications anterior to the interphalangeal joint of the thumb favoring sequela of remote injury versus accessory sesamoids. SOFT TISSUES:Mild soft tissue swelling of thumb. EFFUSION:None visible. OTHER: Negative. IMPRESSION: 1. No convincing acute bone abnormality. Findings favor sequela of remote injury. Electronically authenticated by: ANDREW MORRIS Date: 2022-01-02 10:32[facility]04-06-2022 Progress note Author Giovanna Shelton [facility] October 20, 2021 12:49pm Note Date/Time October 20, 2021 9:21 am [facility] [place] [address] Hem/Onc Follow Up Note - OP Signed Patient: Renuka Caceres MR#: [id number] : 1960 Acct:[id number] Age/Sex: 60 / F Type: REG RCR Copies to: DO Daniel Calvert MD~ Subjective Date/Time of Service: Date of Service: 10/20/2021 Time of Service: 09:21 Chief Complaint: Patient is a patient of Dr Lopes here for a 3 month follow upfor right breast cancer. She is taking Letrozole. She reports still having hot flashes, but they are not as bad. No other concerns voiced. HPI: 10/20/2021: Renuka presents today in follow-up for her breast cancer on letrozole. She previously was on anastrozole but did not tolerate this d/t multiple hot flashes during the day and throughout the night, interrupting her sleep. She stopped taking anastrozole on 07/20/2021 and was switched to letrozole on 08/11/2021. She is doing better on this and continues with hot flashes, but these are more tolerable/less frequent and do not wake her up throughout the night. Otherwise she denies any new symptoms and feels well overall. She denies any new lumps or skin changes on self-exam. Her last breast exam was June 2021. She is due for her mammogram this month and has these done at [place]. Eliazar get this record once it's completed. -- She will follow-up in [address] Hoffmann for exam and to follow-up on symptoms. She will call in sooner if needed. We will try to coordinate her next follow-up to be same day as her radiation follow-up appointment. 07/20/2021: Renuka presents in follow-up today July 20, 2021. She is having intractable hot flashes and night that keeps her up. She is on anastrozole. Renuka presented with breast cancer having had lumpectomy in January 31, 2021. She had a 4.5 cm invasive lobular breast cancer, 0 of 6 lymph nodes positive. ER and VA was positive, H ER 2 -. [facility] genetic testing was negative for BRCA 1 and 2. Oncotype DX showed low risk disease. She was started on radiation March 2021. Her family doctor is Dr. Juan fowler and she was operated on by Dr. Salazar Kimble. CURYUNG: 60-year-old post-menopausal female- had menopause at age 53 and she did not takeany HRT. She is a non-smoker and drinks alcohol occasionally and she is Ab0. She had been asymptomatic but gets her regular screening mammograms which previously had shown a suspicious area in the right breast was being followed up. Her screening mammogram in October 2020 was abnormal and subsequent diagnostic mammogram and ultrasound study showed 11 x 10 x 10 mm shadowing lesion at 1 o'clock position in the right breast. She had a stereotactic core biopsy on 12/22/2020 with confirmation of lobular carcinoma. 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 6 sentinel nodes were negative for metastatic disease in the primary tumor measured 4.5 cm in diameter. Her margins of resection were positive inferiorly and posteriorly and subsequently, she had re-resection of the tumor bed on 02/23/2021. The finalsurgical margins were all negative and there was no residual carcinoma identified. Patient's Oncotype DX score is [address] Lopes did not plan to give any chemotherapy and she received a 6-week course of extermination therapy to the right breast and her treatment course was completed in May 2021. Patient was started on Arimidex at the end of May [address] Lopes. - Summary of Therapies Summary of Therapies: She had a stereotactic core biopsy on 12/22/2020 with confirmation of lobular carcinoma. 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 -- 6 sentinel nodes were negative for metastatic disease in the primary tumor measured 4.5 cm in diameter. Her margins of resection were positive inferiorly and posteriorly. -- Re-resection of the tumor bed on 02/23/2021. The final surgical margins were all negative and there was no residual carcinoma identified. 2) Received 6-week course of radiation therapy to the right breast from March 2021- May 2021. 3) Patient was started on Arimidex May 2021 (at [place]). Did not tolerated/t hot flashes, so switched to letrozole 08/11/2021 -- Will continue letrozole for 5 years (May 2026) [facility] - Medical History Medical History: Medical History (Last Reviewed 03/12/21 @ 14:04 by Thiago Durbin MD) Adenocarcinoma of right breast Ankle fracture Hyperlipemia Hypertension Lumbosacral spondylolysis Plantar fasciitis Seasonal allergies - Surgical History Surgical History: Surgical History (Last Reviewed 03/12/21 @ 14:04 by Thiago Durbin MD) History of tonsillectomy - Family History Family History: Family History (Last Reviewed 03/12/21 @ 14:05 by Thiago Durbin MD) Sister No significant family history Family/Other No significant family history - Social History Smoking Status: Never smoker Substance Use Type: None Home Medications & Allergies Allergies Sulfa (Sulfonamide Antibiotics) Allergy (Verified 10/20/21 08:57) Itching Home Medications amlodipine 5 mg tablet 5 mg PO DAILY 03/11/21 [History Confirmed 10/20/21] atorvastatin 40 mg tablet 40 mg PO DAILY 03/11/21 [History Confirmed 10/20/21] benazepril 20 mg tablet 20 mg PO DAILY 03/11/21 [History Confirmed 10/20/21] biotin 1,000 mcg chewable tablet 1,000 mcg PO DAILY 03/11/21 [History Confirmed 10/20/21] hydrochlorothiazide 25 mg tablet 25 mg PO DAILY 03/11/21 [History Confirmed 10/20/21] metformin 500 mg tablet,extended release 24 hr 500 mg PO BID 03/11/21 [History Confirmed 10/20/21] hyaluronic ixqmic-pqwbsyssh-jcmo vera extract topical gel (RadiaPlexRx) 1 applicTOPICAL TID 05/18/21 [History Confirmed 10/20/21] mometasone 0.1 % topical cream 1 applic TOPICAL BID #60 g 05/18/21 [Rx Confirmed 10/20/21] zinc oxide 10 % topical ointment 1 applic TOPICAL TID #60 g 05/31/21 [Rx Confirmed 10/20/21] vitamin E 1,000 unit capsule 1,000 unit PO DAILY 07/20/21 [History Confirmed 10/20/21] letrozole 2.5 mg tablet 2.5 mg PO DAILY #30 tab 09/03/21 [Rx Confirmed 10/20/21] Objective - Height/Weight Height/Weight: Height 5 ft 4 in Weight 95.118 kg - Vital Signs Vital Signs: 10/20/21 08:57 Temperature 98 F Pulse Rate [Left Brachial] 87 Respiratory Rate 20 Blood Pressure [Left Arm] 160/78 H 02 Sat by Pulse Oximetry 96 - Pain Right Axillary Pain Intensity: 5 - Distress Screening Distress Screen Results: RN Distress Screening Start: 03/12/21 10:55 Freq: Status: Active Protocol: Document 04/27/21 11:19 DB (Rec: 04/27/21 11:19 DB [email or web address]) Distress Screening Distress Score: 1 Physical Concerns Feeling tired or a lack of energy Distress Screening Total 1 Physical Exam Narrative: CONSTITUTIONAL: The patient is in no acute distress. HEAD / FACE: Normocephalic; atraumatic, no scleral icterus. LYMPHATIC: No palpable cervical, supraclavicular, or axillary adenopathy. RESPIRATORY: Normal to inspection. Lungs clear to auscultation bilaterally, no wheezes, rhonchi or rales. CARDIOVASCULAR: Regular rate and rhythm. No murmurs, gallops, or rubs. VASCULAR: Carotid, radial, femoral and pedal pulses present bilaterally. No bruits. ABDOMEN: Bowel sounds normoactive. Soft, nontender and non-distended. No hepatosplenomegaly. No masses. INTEGUMENTARY: The skin is unremarkable. No rashes. No suspicious lesions BACK / SPINE: The back is nontender. MUSCULOSKELETAL: Normal musculature, no joint deformities or abnormalities, normal range of motion for all four extremities. EXTREMITIES: No edema, cyanosis or clubbing. NEUROLOGICAL: Alert and oriented. Cranial nerves intact. No gross motor or sensory deficits. Ambulates independently. PSYCHIATRIC: No anxiety or evidence of depression. Assessment and Plan (1) Malignant neoplasm of upper-inner quadrant of right female breast Qualifiers: Estrogen receptor status: positive Qualified Code(s): C50.211 - Malignant neoplasm of upper-inner quadrant of right female breast; Z17.0 - Estrogen receptor positive status [ER+] 60-year-old post-menopausal female- had menopause at age 53 and she did not take any HRT. She is a non-smoker and drinks alcohol occasionally and she is Ab0. She had been asymptomatic but gets her regular screening mammograms which previously had shown a suspicious area in the right breast was being followed up. Her screening mammogram in October 2020 was abnormal and subsequent diagnostic mammogram and ultrasound study showed 11 x 10 x 10 mm shadowing lesion at 1 o'clock position in the right breast. She had a stereotactic core biopsy on 12/22/2020 with confirmation of lobular carcinoma. 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 6 sentinel nodes were negative for metastatic disease in the primary tumor measured 4.5 cm in diameter. Her margins of resection were positive inferiorly and posteriorly and subsequently, she had re-resection of the tumor bed on 02/23/2021. The final surgical margins were all negative and there was no residual carcinoma identified. Patient's Oncotype DX score is [address] Lopes did not plan to give any chemotherapy and she received a 6-week course of extermination therapy to the right breast and her treatment course was completed in May 2021. Patient was started on Arimidex at the end of May [address] Lopes at [place]. 07/20/2021: Stopped anastrozole due to severe hot flashes. The patient will call me in 2 weeks for follow-up to see if the hot flashes have resolved. If they have, we will try her on letrozole. If they have not we will talk to her about other options. One option could be tamoxifen or another selective estrogen receptor modulator. There are other modalities we could also try to alleviate hot flashes as well. She was not having this prior to initiation of anastrozole. 08/11/2021 phone call with improvement in hot flashes. Patient switched to letrozole at this time. 10/20/2021: She continues to tolerate the letrozole ok with less frequent hot flashes. Otherwise she denies any new complaints. No new lumps or skin changes on self- exam noted. She will have her mammogram done this month at [place] and will have results sent to us. Plan for follow-up in [address] Hoffmann for exam. We will coordinate this with her upcoming radiation oncology follow-up visit. She has no questions today and is in agreement with this plan. -- We will try to track down a baseline DEXA scan (unclear if done) and coordinate follow-up scans from there - Time with Patient Coordination of Care & Counseling Time: Greater than 50% of time spent with patient was for coordination of care (as documented) and [id number] counseling of patient and/or family. Dictated By: Giovanna Shelton APRN DD/ 0 Signed By: <Electronically signed by YEFRI Shelton> 10/20/21 1249 [facility] Work Phone: 1([phone]) 747-581801-04-2022 Progress note Author Daniel Lopes [facility] July 20, 2021 10:06am Note Date/Time July 20, 2021 9: 54am [facility] [place] [address] Hem/Onc Follow Up Note - OP Signed Patient: Renuka Caceres MR#: [id number] : 1960 Acct:[id number] Age/Sex: 60 / F Type: REG RCR Copies to: DO Daniel Calvert MD~ Subjective Date/Time of Service: Date of Service: 07/20/2021 Time of Service: 09:54 Chief Complaint: Patient is here today for 3 month follow up visit for breast cancer. HPI: Renuka presents in follow-up today July 20, 2021. She is having intractable hot flashes and night that keeps her up. She is on anastrozole. Renuka presented with breast cancer having had lumpectomy in January 31, 2021. She had a 4.5 cm invasive lobular breast cancer, 0 of 6 lymph nodes positive. ER and VA was positive, H ER 2 -. [facility] genetic testing was negative for BRCA 1 and 2. Oncotype DX showed low risk disease. She was started on radiation March 2021. Her family doctor is Dr. Juan fowler and she was operated on by Dr. Salazar Kimble. Subjective/ROS - Narrative: Severe nocturnal hot flashes PMFSH - Medical History Medical History: Medical History (Last Reviewed 03/12/21 @ 14:04 by Thiago Durbin MD) Adenocarcinoma of right breast Ankle fracture Hyperlipemia Hypertension Lumbosacral spondylolysis Plantar fasciitis Seasonal allergies - Surgical History Surgical History: Surgical History (Last Reviewed 03/12/21 @ 14:04 by Thiago Durbin MD) History of tonsillectomy - Family History Family History: Family History (Last Reviewed 03/12/21 @ 14:05 by Thiago Durbin MD) Sister No significant family history Family/Other No significant family history - Social History Smoking Status: Never smoker Home Medications & Allergies Allergies Sulfa (Sulfonamide Antibiotics) Allergy (Verified 07/20/21 09:42) Itching Home Medications amlodipine 5 mg tablet 5 mg PO DAILY 03/11/21 [History Confirmed 07/20/21] atorvastatin 40 mg tablet 40 mg PO DAILY 03/11/21 [History Confirmed 07/20/21] benazepril 20 mg tablet 20 mg PO DAILY 03/11/21 [History Confirmed 07/20/21] biotin 1,000 mcg chewable tablet 1,000 mcg PO DAILY 03/11/21 [History Confirmed 07/20/21] hydrochlorothiazide 25 mg tablet 25 mg PO DAILY 03/11/21 [History Confirmed 07/20/21] metformin 500 mg tablet,extended release 24 hr 500 mg PO BID 03/11/21 [History Confirmed 07/20/21] hyaluronic yxmylb-dtpglwofd-wjmd vera extract topical gel (RadiaPlexRx) 1 applicTOPICAL TID 05/18/21 [History Confirmed 07/20/21] mometasone 0.1 % topical cream 1 applic TOPICAL BID #60 g 05/18/21 [Rx Confirmed 07/20/21] zinc oxide 10 % topical ointment 1 applic TOPICAL TID #60 g 05/31/21 [Rx Confirmed 07/20/21] letrozole 2.5 mg tablet 2.5 mg PO DAILY #30 tab 07/20/21 [Rx] vitamin E 1,000 unit capsule 1,000 unit PO DAILY 07/20/21 [History Confirmed 07/20/21] Objective - Height/Weight Height/Weight: Height 5 ft 4 in Weight 97.522 kg - Vital Signs Vital Signs: 07/20/21 09:42 Temperature 98.0 F Pulse Rate [Left Brachial] 105 H Respiratory Rate 20 Blood Pressure [Left Arm] 151/82 H 02 Sat by Pulse Oximetry 94 L - Pain Right Axillary Pain Intensity: 5 - Distress Screening Distress Screen Results: RN Distress Screening Start: 03/12/21 10:55 Freq: Status: Active Protocol: Document 04/27/21 11:19 DB (Rec: 04/27/21 11:19 DB [email or web address]) Distress Screening Distress Score: 1 Physical Concerns Feeling tired or a lack of energy Distress Screening Total 1 Physical Exam Narrative: The patient is alert and oriented x3. Eyes are anicteric. Head is atraumatic normocephalic. Lungs audibly with good air exchange. Psychiatric exam shows a normal affect. Neurological exam is grossly intact. - ECOG Performance Status ECOG Score: 0 Assessment and Plan (1) Malignant neoplasm of upper-inner quadrant of right female breast Qualifiers: Estrogen receptor status: positive Qualified Code(s): C50.211 - Malignant neoplasm of upper-inner quadrant of right female breast; Z17.0 - Estrogen receptor positive status [ER+] Stop anastrozole due to severe hot flashes The patient will call me in 2 weeks for follow-up to see if the hot flashes have resolved. If they have, we will try her on letrozole. If they have not we will talk to her about other options. One option could be tamoxifen or another selective estrogen receptor modulator. There are other modalities we could also try to alleviate hot flashes as well. She was not having this prior to initiation of anastrozole. I will see her in 3 months. - Time with Patient Coordination of Care & Counseling Time: Greater than 50% of time spent with patient was for coordination of care (as documented) and [id number] counseling of patient and/or family. Dictated By: Daniel Lopes MD DD/ Signed By: <Electronically signed by MD Daniel Lopes> 07/20/21 [address] [facility] Work Phone: [phone]) 146-258412-09-2021 Progress note Author Thiago Durbin [facility] June 24, 2021 10:35am Note Date/Time June 24, 2021 1 0:26am [facility] [place] [address] Rad Onc Follow Up Note - OP Signed Patient: Renuka Caceres MR#: [id number] : 1960 Acct:[id number] Age/Sex: 60 / F Type: REG RCR Copies to: DO Daniel Calvert MD Michael R Nill, MD FACS~ Subjective - Service Date/Time Date: 06/24/21 Time: 10:15 - Diagnosis Invasive lobular carcinoma of the upper medial quadrant of the right breast, grade 1 with associated DCIS and LCIS, pathological stage pT2 pN0 M0, ER positive, VA positive and HER-2/rikki negative, stage Ib. - Chief Complaint My skin reaction over the right breast has healed completely - History of Present Illness 60-year-old post-menopausal female had menopause at age 53 and she didnot take any HRT. She is a non-smoker and drinks alcohol occasionally and she is Ab0. She had been asymptomatic but gets her regular screening mammograms which previously had shown a suspicious area in the right breast was being followed up. Her most recent screening mammogram in October 2020 was abnormal and subsequent diagnostic mammogram and ultrasound study showed 11 x 10x 10 mm shadowing lesion at 1 o'clock position in the right breast. She had a stereotactic core biopsy on 12/22/2020 with confirmation of lobular carcinoma. 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 6 sentinel nodes were negative for metastatic disease in the primary tumor measured 4.5 cm in diameter. Her margins of resection were positive inferiorly and posteriorly and subsequently, she had re-resection of the tumor bed on 02/23/2021. The final surgical margins were all negative and there was no residual carcinoma identified. Patient's Oncotype DX score is [address] Lopes did not plan to give any chemotherapy and she received a 6-week course of extermination therapy to the right breast and her treatment course was completed 1 month ago. Patient was started on Arimidex last week by Dr. Lopesand she returned today for her first post radiotherapy follow-up without any major complaints. Her skin reaction is completely healed and she has no complaints of headaches, nausea, neck lumps, breast or axillary lumps, cough, back pain, abdominal discomfort, urinary or bowel problems, vaginal bleeding or discharge, leg swelling, motor or sensory changes. No complains of fever, chillsor night sweats I've closely reviewed the patient's oncologic, medical, surgical, social, and family history. Changes noted above. I also reviewed the patient's medicationsvia reconciliation, as per the nursing record. - Review of Systems ROS: As per HPI. Objective Height 5 ft 4 in Weight 95.7 kg Temp 97.8 F 06/24/21 09:59 Pulse 86 06/24/21 09:59 Resp 20 06/24/21 09:59 BP 150/85 H 06/24/21 09:59 Pulse Ox 97 06/24/21 09:59 Pain: 0/10 Distress Screen Results: RN Distress Screening Start: 03/12/21 10:55 Freq: Status: Active Protocol: Document 04/27/21 11:19 DB (Rec: 04/27/21 11:19 DB [email or web address]) Distress Screening Distress Score: 1 Physical Concerns Feeling tired or a lack of energy Distress Screening Total 1 Karnofsky Performance Scale: 100%: Normal, no complaints Physical Exam: On physical examination today, she has a healthy looking, alert, oriented pleasant female who does not appear to be in any acute distress. HEENT examination revealed no cranial neuropathy. No palpable cervical or supraclavicular adenopathy. Local examination of right breast shows a well-healedsurgical incision in the medial inner quadrant of the right breast and there is mild to moderate residual erythema from her recent radiation therapy treatments as expected. No open areas are noted. She has no palpable masses in the right breast or axilla. Left breast and axilla are also without any masses. She has no right arm swelling. Her lungs are clear to auscultation. Cardiac examination is unremarkable. She has no spinal or paraspinal tenderness. Her abdomen is soft, non-tender and there is no palpable mass or organomegaly. Pelvic and rectal examination not done today. On neurological examination, thereis no gross motor, sensory or cerebellar deficit. Results Impression: Invasive lobular carcinoma of the upper medial quadrant of the right breast, grade 1 with associated DCIS and LCIS, pathological stage pT2 pN0 M0, ER positive, VA positive and HER-2/rikki negative, stage Ib. Assessment & Plan (1) Malignant neoplasm of upper-inner quadrant of right female breast Qualifiers: Estrogen receptor status: positive Qualified Code(s): C50.211 - Malignant neoplasm of upper-inner quadrant of right female breast; Z17.0 - Estrogen receptor positive status [ER+] Plan: This 60-year-old female with recent diagnosis of invasive lobular carcinoma of the right breast in the upper inner quadrant, stage pT2 pN0 M0, ER positive, VA positive and HER-2 negative, stage Ib had lumpectomy and sentinel biopsy followed by primary radiotherapy treatment to the right breast for 6 weeks. Treatment was completed 4 weeks ago and she is doing well clinically. Most of her acute radiation reactions have subsided completely. She has been started on anastrozole by Dr. Lopes and she has an appointment to see him again in a month. On today's examination, there is no evidence of any residual or recurrent disease. I shall plan to see her back in 6 months for her next scheduled radiation oncology follow-up. Total Time Spent with Patient: Less than 30 minutes I spent 20 minutes xdqg-xm-wdzz time with this patient and more than 50% of time allotted to patient education, answering questions, and coordinating care. N.B: Voice-recognition software was used in the creation of this note. Efforts were made to detect and correct typographical and/or grammatical errors; please excuse them should you find any. Dictated By: Thiago Durbin MD DD/ 1026 Signed By: <Electronically signed by Thiago Durbin MD> 06/24/21 1035 [facility] Work Phone: [phone] 133-623209-21-2021 Progress note Author Daniel Lopes [facility] April 06, 2021 9:12am Note Date/Time April 06, 2021 9:10am [facility] [place] [address] Hem/Onc Follow Up Note - OP Signed Patient: Renuka Caceres MR#: [id number] : 1960 Acct:[id number] Age/Sex: 60 / F Type: REG RCR Copies to: DO Daniel Calvert MD~ Subjective Date/Time of Service: Date of Service: 04/06/2021 Time of Service: 09:07 Chief Complaint: Patient is here today for a visit for malignant neoplasm of right breast and to go over genetics testing. HPI: Renuka presents in follow-up today April 06, 2021. [employer] genetic testing was negative for BRCA 1 and 2. Oncotype DX showed low risk disease. She will be getting simulation today and starting radiation. She is from [facility] and will follow up with me in 2 months to start adjuvant radiationtherapy. This is a very nice 60-year-old female with a lobular carcinoma of the breast who I saw at [facility]. Oncotype DX was done which showed lowrisk disease and no indications for chemotherapy. Because of strong family history, we did do [employer] genetic testing which was negative. She will be getting radiation simulation today April 06, 2021 and then follow-up with me in 2 months to start adjuvant hormonal therapy at [facility]. Subjective/ROS - Narrative: Negative review of systems today PMFSH - Medical History Medical History: Medical History (Last Reviewed 03/12/21 @ 14:04 by Thiago Durbin MD) Adenocarcinoma of right breast Ankle fracture Hyperlipemia Hypertension Lumbosacral spondylolysis Plantar fasciitis Seasonal allergies - Surgical History Surgical History: Surgical History (Last Reviewed 03/12/21 @ 14:04 by Thiago Durbin MD) History of tonsillectomy - Family History Family History: Family History (Last Reviewed 03/12/21 @ 14:05 by Thiago Durbin MD) Sister No significant family history Family/Other No significant family history - Social History Smoking Status: Never smoker Home Medications & Allergies Allergies Sulfa (Sulfonamide Antibiotics) Allergy (Verified 04/06/21 08:27) Itching Home Medications amlodipine 5 mg tablet 5 mg PO DAILY 03/11/21 [History Confirmed 04/06/21] atorvastatin 40 mg tablet 40 mg PO DAILY 03/11/21 [History Confirmed 04/06/21] benazepril 20 mg tablet 20 mg PO DAILY 03/11/21 [History Confirmed 04/06/21] biotin 1,000 mcg chewable tablet 1,000 mcg PO DAILY 03/11/21 [History Confirmed 04/06/21] hydrochlorothiazide 25 mg tablet 25 mg PO DAILY 03/11/21 [History Confirmed 04/06/21] metformin 500 mg tablet,extended release 24 hr 500 mg PO BID 03/11/21 [History Confirmed 04/06/21] Objective - Height/Weight Height/Weight: Height 5 ft 4 in Weight 95.708 kg - Vital Signs Vital Signs: 04/06/21 08:28 Temperature 98.0 F Pulse Rate [Left Brachial] 92 H Respiratory Rate 20 Blood Pressure [Left Arm] 154/77 H 02 Sat by Pulse Oximetry 96 - Emotional Needs Assessment Emotional Needs Assessment: Emotional Needs Identified? No Physical Exam Narrative: The patient is alert and oriented x3. Eyes are anicteric. Head is atraumatic normocephalic. Lungs audibly with good air exchange. Psychiatric exam shows a normal affect. Neurological exam is grossly intact. - ECOG Performance Status ECOG Score: 0 Assessment and Plan (1) Malignant neoplasm of upper-inner quadrant of right female breast Qualifiers: Estrogen receptor status: positive Qualified Code(s): C50.211 - Malignant neoplasm of upper-inner quadrant of right female breast; Z17.0 - Estrogen receptor positive status [ER+] Lobular carcinoma of the breast. Patient will be getting simulation and see me in 2 months in [place] to start adjuvant hormonal therapy with an aromatase similar for 5 years. - Time with Patient Coordination of Care & Counseling Time: Greater than 50% of time spent with patient was for coordination of care (as documented) and [id number] counseling of patient and/or family. Dictated By: Daniel Lopes MD DD/ 6 Signed By: <Electronically signed by MD Daniel Lopes> 04/06/[address]11 [facility] Work Phone: [phone]) 246-378508-31-2021 Consult note Author Thiago Durbin [facility] March 16, 2021 3:14pm Note Date/Time March 12, 2021 11 :51am [facility] [place] [address] Rad Onc Consult Note - OP Signed with Addenda Patient: Renuka Caceres MR#: [id number] : 1960 Acct:[id number] Age/Sex: 60 / F Type: REG RCR Copies to: DO Daniel Calvert MD Michael R Nill, MD FACS~ ADDENDUM1 Dr. Lopes is ordering her genetic testing and we shall await the report of thegenetic testing prior to initiating her right breast radiation therapy treatments. Addendum Dictated By: Thiago Durbin MD Addendum Signed By: 03/16/21 1514 Addendum Cosigned By: DD/ TD/TT: 03/16/21 HPI - Service Date/Time Date: 03/12/21 Time: 12:00 Diagnosis: Invasive lobular carcinoma of the upper medial quadrant of the right breast, grade 1 with tubular differentiation, pathological stage pT2 pN0 M0, ER positive, VA positive and HER-2/rikki negative, stage Ib. Chief Complaint: I have right breast cancer HPI: 60-year-old post-menopausal female had menopause at age 53 and she didnot take any HRT. She is a non-smoker and drinks alcohol occasionally and she is Ab0. She had been asymptomatic but gets her regular screening mammograms which previously had shown a suspicious area in the right breast which is being followed up. Her most recent screening mammogram in October 2020 was abnormal and subsequent diagnostic mammogram and ultrasound study showed 11 x 10 x 10 mm shadowing lesion at 1 o'clock position in the right breast. She had a stereotactic core biopsy on 12/22/2020 with confirmation of lobular carcinoma. 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 6 sentinel nodes were negative for metastatic disease in theprimary tumor measured 4.5 cm in diameter. Her margins of resection were positive inferiorly and posteriorly and subsequently, she had reresection of thetumor bed on 02/23/2021. The final surgical margins were all negative and there was no residual carcinoma identified. Patient's Oncotype DX score is 24 and does not plan to give any chemotherapy but she will be receiving post-radiation hormonal treatments. Patient has a family history of breast cancer inone of her sisters, a cousin and an aunt and I shall discuss with Dr. Lopes regarding her genetic testing prior to initiation of her adjuvant radiation therapy treatments to the right breast. Patient is healing well from her surgery and has no complaints of headaches, nausea, neck lumps, breast or axillary lumps, cough, back pain, abdominal discomfort, urinary or bowel problems, vaginal bleeding or discharge, leg swelling, motor or sensory changes. She had a Pap smear in October 2020 which was reported negative. No complains offever, chills or night sweats PMFSH - Medical History Medical History: Medical History (Last Reviewed 03/12/21 @ 14:04 by Thiago Durbin MD) Adenocarcinoma of right breast Ankle fracture Hyperlipemia Hypertension Lumbosacral spondylolysis Plantar fasciitis Seasonal allergies - Surgical History Surgical History: Surgical History (Last Reviewed 03/12/21 @ 14:04 by Thiago Durbin MD) History of tonsillectomy - Family History Family History: Family History (Last Reviewed 03/12/21 @ 14:05 by Thiago Durbin MD) Sister No significant family history Family/Other No significant family history - Social History Smoking Status: Never smoker Home Medications & Allergies Allergies Sulfa (Sulfonamide Antibiotics) Allergy (Verified 03/11/21 12:56) Itching Home Medications amlodipine 5 mg tablet 5 mg PO DAILY 03/11/21 [History Confirmed 03/11/21] atorvastatin 40 mg tablet 40 mg PO DAILY 03/11/21 [History Confirmed 03/11/21] benazepril 20 mg tablet 20 mg PO DAILY 03/11/21 [History Confirmed 03/11/21] biotin 1,000 mcg chewable tablet 1,000 mcg PO DAILY 03/11/21 [History Confirmed 03/11/21] hydrochlorothiazide 25 mg tablet 25 mg PO DAILY 03/11/21 [History Confirmed 03/11/21] metformin 500 mg tablet,extended release 24 hr 500 mg PO BID 03/11/21 [History Confirmed 03/11/21] Subjective ROS: I reviewed the 12-point Review of Systems with the patient as per our standard questionnaire. Objective Height 5 ft 4 in Weight 96.3 kg Temp 98.7 F 03/12/21 11:11 Pulse 89 03/12/21 11:11 Resp 22 03/12/21 11:11 BP 166/75 H 03/12/21 11:11 Pulse Ox 97 03/12/21 11:11 Pain: 0/10 Emotional Needs Assessment: Emotional Needs Identified? No Karnofsky Performance Scale: 90%: Can perform normal activity, minor signs of disease Physical Exam: On physical examination today, she has looking, alert, oriented pleasant female who does not appear to be in any acute distress. HEENT examination revealed no cranial neuropathy. No palpable cervical or supraclavicular adenopathy. Local examination of right breast shows a well-healed surgical incision in the medial inner quadrant of the right breast and there is some underlying seroma as expected. No other palpable masses in the right breast or axilla. Left breast axilla also without any masses. She has noarm swelling. Her lungs are clear to auscultation. Cardiac examination is unremarkable. She has no spinal or paraspinal tenderness. Her abdomen is soft,non-tender and there is no palpable mass or organomegaly. Pelvic and rectal examination not done today. She has +1 bilateral feet edema and advised her to use the support stockings. On neurological examination, there is no gross motor, sensory or cerebellar deficit. Results Impression: Invasive lobular carcinoma of the upper medial quadrant of the right breast, grade 1 with tubular differentiation, pathological stage pT2 pN0 M0, ER positive, VA positive and HER-2/rikki negative, stage Ib. Assessment & Plan (1) Malignant neoplasm of upper-inner quadrant of right female breast Qualifiers: Estrogen receptor status: positive Qualified Code(s): C50.211 - Malignant neoplasm of upper-inner quadrant of right female breast; Z17.0 - Estrogen receptor positive status [ER+] Plan: This 60-year-old female with recent diagnosis of invasive lobular carcinoma of the right breast in the upper inner quadrant, stage pT2 pN0 M0, ER positive, VA positive and HER-2 negative, stage Ib had lumpectomy and sentinel biopsy in 6 x- ray nodes were negative for metastatic disease. Her Oncotype DX score is [address] Lopes does not plan any systemic chemotherapy. Patient is a fairly strong family history of breast cancer including her sister, cousin and an aunt. I shall talk to Dr. Lopes regarding ordering a genetic testing prior to initiation of her breast radiation. If the genetic testing is negative, patient will be a candidate for primary radiation therapy treatment to the right breast for 4 weeks as an outpatient. Pros and cons of radiotherapy treatments were discussed in detail and informed consent will be signed prior to initiation of her treatments. Post radiation, she will be candidate for hormone treatments under Dr. Lopes's care as her ER and VA receptors are strongly positive. Total Time Spent with Patient: Greater than 30 minutes I spent 50 minutes [id number]-mi-[id number] time with this patient and more than 50% of time allotted to patient education, answering questions, and coordinating care. N.B: Voice-recognition software was used in the creation of this note. Efforts were made to detect and correct typographical and/or grammatical errors; please excuse them should you find any. Dictated By: Thiago Durbin MD DD/ [id number] Signed By: <Electronically signed by Thiago Durbin MD> 03/12/21 1422 [facility] Work Phone: Evaluation + Plan note No data available for this section [facility] Diagnosis Onset Date Resolution Status Malignant neoplasm of upper- inner quadrant of right female breast acute [facility] Work Phone: Evaluation note* Diagnosis Onset Date Resolution Status Malignant neoplasm of upper- inner quadrant of right female breast chronic Osteoporosis screening [facility] ic [facility] Work Phone: Evaluation note* Diagnosis Onset Date Resolution Status Encounter for monitoring aromatase inhibitor therapy chronic Malignant neoplasm of upper- inner quadrant of right female breast chronic Osteoporosis screening [facility] Work Phone: [facility] Other Evaluation note* Diagnosis Onset Date Resolution Status Diabetes mellitus type 2, co ntrolled, without complications chronic Encounter for monitoring aromatase inhibitor therapy chronic Malignant neoplasm of upper- inner quadrant of right female breast chronic Osteoporosis screening [facility] ic Pulmonary nodule less than 6 mm determined by computed tomography of lung chronic [facility] Work Phone: [facility] general Narrative - Reported* Type Description Date Medical History Hypertension Medical History diabetes mallitus Medical History breast cancer Surgical History tonsillectomy Surgical History C section Surgical History left ORIF by Dr. Aleman [employer] Other [facility] general Narrative - Reported* Type Description Date Medical History Breast cancer, right Medical History Pulmonary nodule, right Medical History Mild obesity Medical History IFG (impaired fasting glucose) Medical History Essential hypertension Medical History Hyperlipidemia type II Medical History Tinea corporis Medical History Plantar fasciitis, left Medical History Contracture of left ankle Medical History Lumbosacral spondylosis with rad iculopathy Medical History Chronic seasonal allergic rhinit is due to pollen Surgical History tonsillectomy Surgical History C section Surgical History left ORIF by Dr. Aleman [employer] Other [facility] general Narrative - Reported* Type Description Date Medical History Breast cancer, right Medical History Pulmonary nodule, right Medical History Mild obesity Medical History IFG (impaired fasting glucose) Medical History Essential hypertension Medical History Hyperlipidemia type II Medical History Tinea corporis Medical History Plantar fasciitis, left Medical History Contracture of left ankle Medical History Lumbosacral spondylosis with rad iculopathy Medical History Chronic seasonal allergic rhinit is due to pollen Surgical History tonsillectomy Surgical History C section Surgical History left ORIF by Dr. Aleman Hospitalization History see surgical hx [employer] Other [facility] general Narrative - Reported* Type Description Date Medical History Breast cancer, right Medical History Pulmonary nodule, right Medical History Mild obesity Medical History IFG (impaired fasting glucose) Medical History Essential hypertension Medical History Hyperlipidemia type II Medical History Tinea corporis Medical History Plantar fasciitis, left Medical History Contracture of left ankle Medical History Lumbosacral spondylosis with rad iculopathy Medical History Chronic seasonal allergic rhinit is due to pollen Surgical History tonsillectomy Surgical History C section Surgical History left ORIF by Dr. Aleman Surgical History Colonoscopy 12/2022 Hospitalization History see surgical hx [employer] Other [facility] general Narrative - Reported* Type Description Date Medical History Breast cancer, right Medical History Pulmonary nodule, right Medical History Mild obesity Medical History Essential hypertension Medical History Hyperlipidemia type II Medical History Tinea corporis Medical History Plantar fasciitis, left Medical History Contracture of left ankle Medical History Lumbosacral spondylosis with rad iculopathy Medical History Chronic seasonal allergic rhinit is due to pollen Medical History T2DM Surgical History tonsillectomy Surgical History C section Surgical History left ORIF by Dr. Aleman Surgical History Colonoscopy 12/2022 Hospitalization History see surgical hx [employer] Other Hospital Discharge instructions No data available for this section [facility] Author Giovanna Shelton [facility] April 13, 2022 9:15am Note Date/Time April 13, 2022 8:39am [facility] at [address] [address] Hem/Onc Follow Up Note - OP Signed Patient: Renuka Caceres MR#: [id number] : 1960 Acct:[id number] Age/Sex: 61 / F Type: REG RCR Copies to: MD Singh Greene DO James E Fanning, MD~ Subjective Date/Time of Service: Date of Service: 04/13/2022 Time of Service: 08:26 Chief Complaint: Patient is here for a 3 month follow up for right breast cancer. She is taking Letrozole, voices no concerns at this time. HPI: 04/13/2022: Renuka is here for follow-up on letrozole for her breast cancer. She is doing very well overall. She notes some muscular pain in her right side d/t increased physical activity. This comes and goes with exercise and is tolerable. She also has some knee pain with increased exercise d/t known meniscus injury. Otherwise she denies new complaints including hot flashes or worsening joint complaints. No skin changes or new lumps noted on self-exam. Shehad her baseline DEXA done on 01/18/2022 which showed normal bone density. She denies starting calcium and vitamin D previously so we again recommended she start supplementation while on letrozole. She will follow-up in [address] Hoffmann. 01/13/2022: Renuka is here for 3-month follow-up on letrozole therapy for T2 N0 M0 ER/VA positive breast cancer, status postlumpectomy in February 2021 with reexcision to negative margins.. She completed adjuvant radiation therapy March-April 2021. She started anastrozole in May 2022 but did not tolerate this well and stopped taking it 07/20/2021. She was changed to letrozole 08/11/2021 and tolerates this well without significant hot flashes, myalgias, arthralgias. She has no skin changes, masses, or pain of the breast on self-exam. We reviewed her mammogram from [facility] performed 10/06/2021 which returned with heterogeneously dense breasts but no significant suspicious abnormalities and postsurgical changes in the right upper inner quadrant. She has not had baseline DEXA scan and we ordered this today. Advised to start calcium and vitamin D until DEXA findings which she will be contacted with afterreview. Next follow-up with nurse practitioner in 3 months, 6 months with hi. Moderate complexity visit over 25 minutes for transfer of oncology care and review of osteopenia screening and recommendations for supplemental calcium/vitamin D. 10/20/2021: Renuka presents today in follow-up for her breast cancer on letrozole. She previously was on anastrozole but did not tolerate this d/t multiple hot flashes during the day and throughout the night, interrupting her sleep. She stopped taking anastrozole on 07/20/2021 and was switched to letrozole on 08/11/2021. She is doing better on this and continues with hot flashes, but these are more tolerable/less frequent and do not wake her up throughout the night. Otherwise she denies any new symptoms and feels well overall. She denies any new lumps or skin changes on self-exam. Her last breast exam was June 2021. She is due for her mammogram this month and has these done at [place]. Wewill get this record once it's completed. -- She will follow-up in [address] Hoffmann for exam and to follow-up on symptoms. She will call in sooner if needed. We will try to coordinate her next follow-up to be same day as her radiation follow-up appointment. 07/20/2021: Renuka presents in follow-up today July 20, 2021. She is having intractable hot flashes and night that keeps her up. She is on anastrozole. Renuka presented with breast cancer having had lumpectomy in January 31, 2021. She had a 4.5 cm invasive lobular breast cancer, 0 of 6 lymph nodes positive. ER and VA was positive, H ER 2 -. [facility] genetic testing was negative for BRCA 1 and 2. Oncotype DX showed low risk disease. She was started on radiation March 2021. Her family doctor is Dr. Juan Fwoler and she was operated on by Dr. Salazar Kimble. CURYUNG: 60-year-old post-menopausal female- had menopause at age 53 and she did not takeany HRT. She is a non-smoker and drinks alcohol occasionally and she is Ab0. She had been asymptomatic but gets her regular screening mammograms which previously had shown a suspicious area in the right breast was being followed up. Her screening mammogram in October 2020 was abnormal and subsequent diagnostic mammogram and ultrasound study showed 11 x 10 x 10 mm shadowing lesion at 1 o'clock position in the right breast. She had a stereotactic core biopsy on 12/22/2020 with confirmation of lobular carcinoma. 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 6 sentinel nodes were negative for metastatic disease in the primary tumor measured 4.5 cm in diameter. Her margins of resection were positive inferiorly and posteriorly and subsequently, she had re-resection of the tumor bed on 02/23/2021. The finalsurgical margins were all negative and there was no residual carcinoma identified. Patient's Oncotype DX score is [address] Lopes did not plan to give any chemotherapy and she received a 6-week course of extermination therapy to the right breast and her treatment course was completed in May 2021. Patient was started on Arimidex at the end of May [address] Lopes. - Summary of Therapies Summary of Therapies: She had a stereotactic core biopsy on 12/22/2020 with confirmation of lobular carcinoma. 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 -- 6 sentinel nodes were negative for metastatic disease in the primary tumor measured 4.5 cm in diameter. Her margins of resection were positive inferiorly and posteriorly. -- Re-resection of the tumor bed on 02/23/2021. The final surgical margins were all negative and there was no residual carcinoma identified. 2) Received 6-week course of radiation therapy to the right breast from March 2021- May 2021. 3) Patient was started on Arimidex May 2021 (at [place]). Did not tolerated/t hot flashes, so switched to letrozole 08/11/2021 -- Will continue letrozole for 5 years (May 2026) ROS Details: All systems reviewed & no additional complaints except as documented PMFSH - Medical History Medical History: Medical History (Last Reviewed 01/13/22 @ 08:48 by Chiara Hoffmann MD) Adenocarcinoma of right breast Ankle fracture Hyperlipemia Hypertension Lumbosacral spondylolysis Plantar fasciitis Seasonal allergies - Surgical History Surgical History: Surgical History (Last Reviewed 01/13/22 @ 08:48 by Chiara Hoffmann MD) History of tonsillectomy - Family History Family History: Family History (Last Reviewed 01/13/22 @ 08:48 by Chiara Hoffmann MD) Sister No significant family history Family/Other No significant family history - Social History Smoking Status: Never smoker Substance Use Type: None Home Medications & Allergies Allergies Sulfa (Sulfonamide Antibiotics) Allergy (Verified 04/13/22 08:04) Itching Home Medications amlodipine 5 mg tablet 5 mg PO DAILY 03/11/21 [History Confirmed 04/13/22] atorvastatin 40 mg tablet 40 mg PO DAILY 03/11/21 [History Confirmed 04/13/22] benazepril 20 mg tablet 20 mg PO DAILY 03/11/21 [History Confirmed 04/13/22] biotin 1,000 mcg chewable tablet 1,000 mcg PO DAILY 03/11/21 [History Confirmed 04/13/22] hydrochlorothiazide 25 mg tablet 25 mg PO DAILY 03/11/21 [History Confirmed 04/13/22] metformin 500 mg tablet,extended release 24 hr 500 mg PO BID 03/11/21 [History Confirmed 04/13/22] hyaluronic gxejkd-pctvosvid-kxbc vera extract topical gel (RadiaPlexRx topical gel) 1 applic topical TID 05/18/21 [History Confirmed 04/13/22] mometasone 0.1 % topical cream 1 applic topical BID #60 grams 05/18/21 [Rx Confirmed 04/13/22] zinc oxide 10 % topical ointment 1 applic topical TID #60 grams 05/31/21 [Rx Confirmed 04/13/22] vitamin E 670 mg (1,000 unit) capsule 1,000 unit PO DAILY 07/20/21 [History Confirmed 04/13/22] letrozole 2.5 mg tablet 2.5 mg PO DAILY #90 tabs 12/07/21 [Rx Confirmed 04/13/22] ibuprofen 800 mg tablet 800 mg PO Q6H PRN Pain 01/13/22 [History Confirmed 04/13/22] Objective - Height/Weight Height/Weight: Height 5 ft 4 in Weight 91.943 kg - Vital Signs Vital Signs: 04/13/22 08:05 Pulse Rate [Left Brachial] 98 H Respiratory Rate 20 Blood Pressure [Left Arm] 147/83 H 02 Sat by Pulse Oximetry 96 - Pain Right Axillary Pain Intensity: 5 - Distress Screening Distress Screen Results: RN Distress Screening Start: 03/12/21 10:55 Freq: Status: Active Protocol: Document 04/27/21 11:19 DB (Rec: 04/27/21 11:19 DB [id number]) Distress Screening Distress Score: 1 Physical Concerns Feeling tired or a lack of energy Distress Screening Total 1 Physical Exam Narrative: CONSTITUTIONAL: The patient is in no acute distress. HEAD / FACE: Normocephalic; atraumatic, no scleral icterus. LYMPHATIC: No palpable cervical, supraclavicular, or axillary adenopathy. BREASTS: Right upper inner quadrant well-healed lumpectomy scar. Full exam deferred today RESPIRATORY: Normal to inspection. Lungs clear to auscultation bilaterally, no wheezes, rhonchi or rales. CARDIOVASCULAR: Regular rate and rhythm. No murmurs, gallops, or rubs. ABDOMEN: Bowel sounds normoactive. Soft, nontender and non-distended. No hepatosplenomegaly. No masses. INTEGUMENTARY: The skin is unremarkable. No rashes. No suspicious lesions MUSCULOSKELETAL: Normal musculature, no joint deformities or abnormalities, normal range of motion for all four extremities. EXTREMITIES: No edema, cyanosis or clubbing. NEUROLOGICAL: Alert and oriented. Cranial nerves intact. No gross motor or sensory deficits. Ambulates independently. PSYCHIATRIC: No anxiety or evidence of depression. 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 6 sentinel nodes were negative for metastatic disease in the primary tumor measured 4.5 cm in diameter. Her margins of resection were positive inferiorly and posteriorly and subsequently, she had re-resection of the tumor bed on 02/23/2021. The finalsurgical margins were all negative and there was no residual carcinoma identified. Estrogen receptor 95%, progesterone receptor 90%, HER2 negative (1+ IHC) documented on original biopsy 01/29/2021 Patient's Oncotype DX score is 24 and chemo was not recommended (1) Malignant neoplasm of upper-inner quadrant of right female breast Qualifiers: Estrogen receptor status: positive Qualified Code(s): C50.211 - Malignant neoplasm of upper-inner quadrant of right female breast; Z17.0 - Estrogen receptor positive status [ER+] 61-year-old post-menopausal female- had menopause at age 53 and she did not take any HRT. She is a non-smoker and drinks alcohol occasionally and she is Ab0. She had been asymptomatic but gets her regular screening mammograms which previously had shown a suspicious area in the right breast was being followed up. Her screening mammogram in October 2020 was abnormal and subsequent diagnostic mammogram and ultrasound study showed 11 x 10 x 10 mm shadowing lesion at 1 o'clock position in the right breast. She had a stereotactic core biopsy on 12/22/2020 with confirmation of lobular carcinoma. 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 6 sentinel nodes were negative for metastatic disease in the primary tumor measured 4.5 cm in diameter. Her margins of resection were positive inferiorly and posteriorly and subsequently, she had re-resection of the tumor bed on 02/23/2021. The final surgical margins were all negative and there was no residual carcinoma identified. Patient's Oncotype DX score is [address] Lopes did not plan to give any chemotherapy and she received a 6-week course of radiation therapy to the right breast and her treatment course was completed in May 2021. Patient was started on Arimidex at the end of May [address] Lopes at [place]. 07/20/2021: Stopped anastrozole due to severe hot flashes. The patient will call me in 2 weeks for follow-up to see if the hot flashes have resolved. If they have, we will try her on letrozole. If they have not we will talk to her about other options. One option could be tamoxifen or another selective estrogen receptor modulator. There are other modalities we could also try to alleviate hot flashes as well. She was not having this prior to initiation of anastrozole. 08/11/2021 phone call with improvement in hot flashes. Patient switched to letrozole at this time. 10/20/2021: She continues to tolerate the letrozole ok with less frequent hot flashes. Otherwise she denies any new complaints. No new lumps or skin changes on self- exam noted. She will have her mammogram done this month at [place] and will have results sent to us. Plan for follow-up in [address] Hoffmann for exam. We will coordinate this with her upcoming radiation oncology follow-up visit. She has no questions today and is in agreement with this plan. 01/13/2022: Still tolerating letrozole well with no findings of recurrence on clinical exam or mammogram reviewed from 12/06/2021. No baseline DEXA scan records therefore we will order DEXA scan today. She has advised to take supplemental calcium and vitamin D and to continue her letrozole 2.5 mg daily. Next follow-up for clinical exam with nurse practitioner in 3 months and with me in 6 months. She no longer follows with her primary surgeon. She also was evaluated by radiation oncology today with no new recommendations. This is a moderate complexity visit over 25 minutes for transfer of care from Dr. Lopes who is no longer in the practice. 04/13/2022: She continues to do well on letrozole without worsening hot flashes or joint complaints. Her baseline DEXA shows normal bone density. She will see Dr. Hoffmann in 3 months for follow-up and next mammogram will be due in November 2022. She has no questions and is in agreement with this plan. (2) Osteoporosis screening DEXA ordered for osteoporosis screening on aromatase inhibitor therapy. We discussed minimum calcium 500 mg with 400 international units vitamin D daily. If she has evidence of osteopenia or osteoporosis we may change her calcium and vitamin D recommendations and consider addition of bisphosphonate therapy. 04/13/2022: Baseline DEXA done 01/18/2022 with normal bone density. Will plan for repeat in January 2024. We again recommended initiation of calcium and vitamin D daily while on letrozole. (3) Encounter for monitoring aromatase inhibitor therapy Initial poor tolerance of anastrozole therapy started in early July 2021. She now has nearly resolved hot flashes on letrozole 2.5 mg daily started 08/11/2021. Continue for total 5 to 7-year course of aromatase inhibitor therapy. - Chemo Plan Chemo Plan (Dose, Rate, Freq): Letrozole 2.5 mg daily since July 2021. Continue for 5 to 7-year course. Goal of Treatment: Curative - Time with Patient Time Spent with Patient (Follow Up Visit): 25 minutes Coordination of Care & Counseling Time: Greater than 50% of time spent with patient was for coordination of care (as documented) and touk-xu-boad counseling of patient and/or family. Dictated By: Giovanna Shelton APRN DD/ 5 Signed By: <Electronically signed by YEFRI Shelton> 04/13/22914 [facility] Work Phone: Progress note Author Giovanna Shelton [facility] June 29, 2022 9:03am Note Date/Time June 29, 2022 8:52am [facility] [place] [address] Hem/Onc Follow Up Note - OP Signed Patient: Renuka Caceres MR#: [id number] : 1960 Acct:[id number] Age/Sex: 61 / F Type: REG RCR Copies to: MD Singh Greene DO James E Fanning, MD~ Subjective Date/Time of Service: Date of Service: 06/29/2022 Time of Service: 08:46 Chief Complaint: Patient is here for a 3 month follow up for right breast cancer. Taking Letrozole, voices no concerns. HPI: 06/29/2022: Renuka is here for follow-up for her right breast cancer on letrozole. She continues to do well without major joint complaints. She does note her hot flashes have increased since she started taking her diuretic in themornings about a month ago, but these remain tolerable. Otherwise no new complaints. Her energy is stable. She denies new lumps or skin changes on self-exam each month, and none noted on my exam in office today. She will follow-up with Dr. Hoffmann in 6 months. Next mammogram will be November. 04/13/2022: Renuka is here for follow-up on letrozole for her breast cancer. She is doing very well overall. She notes some muscular pain in her right side d/t increased physical activity. This comes and goes with exercise and is tolerable. She also has some knee pain with increased exercise d/t known meniscus injury. Otherwise she denies new complaints including hot flashes or worsening joint complaints. No skin changes or new lumps noted on self-exam. Shehad her baseline DEXA done on 01/18/2022 which showed normal bone density. She denies starting calcium and vitamin D previously so we again recommended she start supplementation while on letrozole. She will follow-up in [address] Hoffmann. 01/13/2022: Renuka is here for 3-month follow-up on letrozole therapy for T2 N0 M0 ER/VA positive breast cancer, status postlumpectomy in February 2021 with reexcision to negative margins.. She completed adjuvant radiation therapy March-April 2021. She started anastrozole in May 2022 but did not tolerate this well and stopped taking it 07/20/2021. She was changed to letrozole08/11/2021 and tolerates this well without significant hot flashes, myalgias, arthralgias. She has no skin changes, masses, or pain of the breast on self-exam. We reviewed her mammogram from [facility] performed 10/06/2021 which returned with heterogeneously dense breasts but no significant suspicious abnormalities and postsurgical changes in the right upper inner quadrant. She has not had baseline DEXA scan and we ordered this today. Advised to start calcium and vitamin D until DEXA findings which she will be contacted with afterreview. Next follow-up with nurse practitioner in 3 months, 6 months with me. Moderate complexity visit over 25 minutes for transfer of oncology care and review of osteopenia screening and recommendations for supplemental calcium/vitamin D. 10/20/2021: Renuka presents today in follow-up for her breast cancer on letrozole. She previously was on anastrozole but did not tolerate this d/t multiple hot flashes during the day and throughout the night, interrupting her sleep. She stopped taking anastrozole on 07/20/2021 and was switched to letrozole on 08/11/2021. She is doing better on this and continues with hot flashes, but these are more tolerable/less frequent and do not wake her up throughout the night. Otherwise she denies any new symptoms and feels well overall. She denies any new lumps or skin changes on self-exam. Her last breast exam was June 2021. She is due for her mammogram this month and has these done at [place]. Eliazar get this record once it's completed. -- She will follow-up in [address] Hoffmann for exam and to follow-up on symptoms. She will call in sooner if needed. We will try to coordinate her next follow-up to be same day as her radiation follow-up appointment. 07/20/2021: Renuka presents in follow-up today July 20, 2021. She is having intractable hot flashes and night that keeps her up. She is on anastrozole. Renuka presented with breast cancer having had lumpectomy in January 31, 2021. She had a 4.5 cm invasive lobular breast cancer, 0 of 6 lymph nodes positive. ER and VA was positive, H ER 2 -. [facility] genetic testing was negative for BRCA 1 and 2. Oncotype DX showed low risk disease. She was started on radiation March 2021. Her family doctor is Dr. Juan Fowler and she was operated on by Dr. Salazar Kimble. CURYUNG: 60-year-old post-menopausal female- had menopause at age 53 and she did not takeany HRT. She is a non-smoker and drinks alcohol occasionally and she is Ab0. She had been asymptomatic but gets her regular screening mammograms which previously had shown a suspicious area in the right breast was being followed up. Her screening mammogram in October 2020 was abnormal and subsequent diagnostic mammogram and ultrasound study showed 11 x 10 x 10 mm shadowing lesion at 1 o'clock position in the right breast. She had a stereotactic core biopsy on 12/22/2020 with confirmation of lobular carcinoma. 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 6 sentinel nodes were negative for metastatic disease in the primary tumor measured 4.5 cm in diameter. Her margins of resection were positive inferiorly and posteriorly and subsequently, she had re-resection of the tumor bed on 02/23/2021. The finalsurgical margins were all negative and there was no residual carcinoma identified. Patient's Oncotype DX score is [address] Lopes did not plan to give any chemotherapy and she received a 6-week course of extermination therapy to the right breast and her treatment course was completed in May 2021. Patient was started on Arimidex at the end of May [address] Lopes. - Summary of Therapies Summary of Therapies: She had a stereotactic core biopsy on 12/22/2020 with confirmation of lobular carcinoma. 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 -- 6 sentinel nodes were negative for metastatic disease in the primary tumor measured 4.5 cm in diameter. Her margins of resection were positive inferiorly and posteriorly. -- Re-resection of the tumor bed on 02/23/2021. The final surgical margins were all negative and there was no residual carcinoma identified. 2) Received 6-week course of radiation therapy to the right breast from March 2021- May 2021. 3) Patient was started on Arimidex May 2021 (at [place]). Did not tolerated/t hot flashes, so switched to letrozole 08/11/2021 -- Will continue letrozole for 5 years (May 2026) ROS Details: All systems reviewed & no additional complaints except as documented PMF - Medical History Medical History: Medical History (Last Reviewed 01/13/22 @ 08:48 by Chiara Hoffmann MD) Adenocarcinoma of right breast Ankle fracture Hyperlipemia Hypertension Lumbosacral spondylolysis Plantar fasciitis Seasonal allergies - Surgical History Surgical History: Surgical History (Last Reviewed 01/13/22 @ 08:48 by Chiara Hoffmann MD) History of tonsillectomy - Family History Family History: Family History (Last Reviewed 01/13/22 @ 08:48 by Chiara Hoffmann MD) Sister No significant family history Family/Other No significant family history - Social History Smoking Status: Never smoker Substance Use Type: None Home Medications & Allergies Allergies Sulfa (Sulfonamide Antibiotics) Allergy (Verified 06/29/22 08:22) Itching Home Medications amlodipine 5 mg tablet 5 mg PO DAILY 03/11/21 [History Confirmed 06/29/22] atorvastatin 40 mg tablet 40 mg PO DAILY 03/11/21 [History Confirmed 06/29/22] benazepril 20 mg tablet 20 mg PO DAILY 03/11/21 [History Confirmed 06/29/22] biotin 1,000 mcg chewable tablet 1,000 mcg PO DAILY 03/11/21 [History Confirmed 06/29/22] hydrochlorothiazide 25 mg tablet 25 mg PO DAILY 03/11/21 [History Confirmed 06/29/22] metformin 500 mg tablet,extended release 24 hr 500 mg PO BID 03/11/21 [History Confirmed 06/29/22] hyaluronic iomfgj-uayvsaijw-dzqa vera extract topical gel (RadiaPlexRx topical gel) 1 applic topical TID 05/18/21 [History Confirmed 06/29/22] mometasone 0.1 % topical cream 1 applic topical BID #60 grams 05/18/21 [Rx Confirmed 06/29/22] zinc oxide 10 % topical ointment 1 applic topical TID #60 grams 05/31/21 [Rx Confirmed 06/29/22] vitamin E 670 mg (1,000 unit) capsule 1,000 unit PO DAILY 07/20/21 [History Confirmed 06/29/22] letrozole 2.5 mg tablet 2.5 mg PO DAILY #90 tabs 12/07/21 [Rx Confirmed 06/29/22] ibuprofen 800 mg tablet 800 mg PO Q6H PRN Pain 01/13/22 [History Confirmed 06/29/22] Objective - Height/Weight Height/Weight: Height 5 ft 4 in Weight 93.7 kg - Vital Signs Vital Signs: 06/29/22 08:22 Pulse Rate [Left Brachial] 87 Respiratory Rate 20 Blood Pressure [Left Arm] 157/87 H 02 Sat by Pulse Oximetry 97 Oxygen Delivery Method Room Air - Pain Right Axillary Pain Intensity: 5 - Distress Screening Distress Screen Results: RN Distress Screening Start: 03/12/21 10:55 Freq: Status: Active Protocol: Document 04/27/21 11:19 DB (Rec: 04/27/21 11:19 DB [email or web address]) Distress Screening Distress Score: 1 Physical Concerns Feeling tired or a lack of energy Distress Screening Total 1 Physical Exam Narrative: CONSTITUTIONAL: The patient is in no acute distress. HEAD / FACE: Normocephalic; atraumatic, no scleral icterus. LYMPHATIC: No palpable cervical, supraclavicular, or axillary adenopathy. BREASTS: Right upper inner quadrant well-healed lumpectomy scar. No lumps or skin changes noted, no nipple discharge or deviation. No axillary adenopathy RESPIRATORY: Normal to inspection. Lungs clear to auscultation bilaterally, no wheezes, rhonchi or rales. CARDIOVASCULAR: Regular rate and rhythm. No murmurs, gallops, or rubs. ABDOMEN: Bowel sounds normoactive. Soft, nontender and non-distended. No hepatosplenomegaly. No masses noted. INTEGUMENTARY: The skin is unremarkable. No rashes. No suspicious lesions MUSCULOSKELETAL: Normal musculature, no joint deformities or abnormalities, normal range of motion for all four extremities. EXTREMITIES: No edema, cyanosis or clubbing. NEUROLOGICAL: Alert and oriented. Cranial nerves intact. No gross motor or sensory deficits. Ambulates independently. PSYCHIATRIC: No anxiety or evidence of depression. 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 6 sentinel nodes were negative for metastatic disease in the primary tumor measured 4.5 cm in diameter. Her margins of resection were positive inferiorly and posteriorly and subsequently, she had re-resection of the tumor bed on 02/23/2021. The finalsurgical margins were all negative and there was no residual carcinoma identified. Estrogen receptor 95%, progesterone receptor 90%, HER2 negative (1+ IHC) documented on original biopsy 01/29/2021 Patient's Oncotype DX score is 24 and chemo was not recommended (1) Malignant neoplasm of upper-inner quadrant of right female breast Qualifiers: Estrogen receptor status: positive Qualified Code(s): C50.211 - Malignant neoplasm of upper-inner quadrant of right female breast; Z17.0 - Estrogen receptor positive status [ER+] 61-year-old post-menopausal female- had menopause at age 53 and she did not take any HRT. She is a non-smoker and drinks alcohol occasionally and she is Ab0. She had been asymptomatic but gets her regular screening mammograms which previously had shown a suspicious area in the right breast was being followed up. Her screening mammogram in October 2020 was abnormal and subsequent diagnostic mammogram and ultrasound study showed 11 x 10 x 10 mm shadowing lesion at 1 o'clock position in the right breast. She had a stereotactic core biopsy on 12/22/2020 with confirmation of lobular carcinoma. 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 6 sentinel nodes were negative for metastatic disease in the primary tumor measured 4.5 cm in diameter. Her margins of resection were positive inferiorly and posteriorly and subsequently, she had re-resection of the tumor bed on 02/23/2021. The final surgical margins were all negative and there was no residual carcinoma identified. Patient's Oncotype DX score is [address] Lopes did not plan to give any chemotherapy and she received a 6-week course of radiation therapy to the right breast and her treatment course was completed in May 2021. Patient was started on Arimidex at the end of May [address] Lopes at [place]. 07/20/2021: Stopped anastrozole due to severe hot flashes. The patient will call me in 2 weeks for follow-up to see if the hot flashes have resolved. If they have, we will try her on letrozole. If they have not we will talk to her about other options. One option could be tamoxifen or another selective estrogen receptor modulator. There are other modalities we could also try to alleviate hot flashes as well. She was not having this prior to initiation of anastrozole. 08/11/2021 phone call with improvement in hot flashes. Patient switched to letrozole at this time. 10/20/2021: She continues to tolerate the letrozole ok with less frequent hot flashes. Otherwise she denies any new complaints. No new lumps or skin changes on self- exam noted. She will have her mammogram done this month at [place] and will have results sent to us. Plan for follow-up in [address] Hoffmann for exam. We will coordinate this with her upcoming radiation oncology follow-up visit. She has no questions today and is in agreement with this plan. 01/13/2022: Still tolerating letrozole well with no findings of recurrence on clinical exam or mammogram reviewed from 12/06/2021. No baseline DEXA scan records therefore we will order DEXA scan today. She has advised to take supplemental calcium and vitamin D and to continue her letrozole 2.5 mg daily. Next follow-up for clinical exam with nurse practitioner in 3 months and with me in 6 months. She no longer follows with her primary surgeon. She also was evaluated by radiation oncology today with no new recommendations. This is a moderate complexity visit over 25 minutes for transfer of care from Dr. Lopes who is no longer in the practice. 04/13/2022: She continues to do well on letrozole without worsening hot flashes or joint complaints. Her baseline DEXA shows normal bone density. She will see Dr. Hoffmann in 3 months for follow-up and next mammogram will be due in November 2022. She has no questions and is in agreement with this plan. 06/29/2022: She continues to do well without evidence of recurrence on exam. She remains on letrozole without worsening joint complaints. She does note an increase in hot flashes since switching her diuretic dosing to the morning, but still tolerable. Her next mammogram will be due in November 2022. She will follow-up with Dr. Hoffmann in 6 months, sooner as needed. (2) Osteoporosis screening DEXA ordered for osteoporosis screening on aromatase inhibitor therapy. We discussed minimum calcium 500 mg with 400 international units vitamin D daily. If she has evidence of osteopenia or osteoporosis we may change her calcium and vitamin D recommendations and consider addition of bisphosphonate therapy. 04/13/2022: Baseline DEXA done 01/18/2022 with normal bone density. Will plan for repeat in January 2024. We again recommended initiation of calcium and vitamin D daily while on letrozole. 06/29/2022: She is on vitamin D, we recommended she add in calcium with this and she is in agreement. (3) Encounter for monitoring aromatase inhibitor therapy Initial poor tolerance of anastrozole therapy started in early July 2021. She now has nearly resolved hot flashes on letrozole 2.5 mg daily started 08/11/2021. Continue for total 5 to 7-year course of aromatase inhibitor therapy. 06/29/2022: Hot flashes increased over the last month d/t diuretic dosing time change. These remain tolerable overall - Chemo Plan Chemo Plan (Dose, Rate, Freq): Letrozole 2.5 mg daily since July 2021. Continue for 5 to 7-year course. Goal of Treatment: Curative - Time with Patient Time Spent with Patient (Follow Up Visit): 25 minutes Coordination of Care & Counseling Time: Greater than 50% of time spent with patient was for coordination of care (as documented) and [id number] counseling of patient and/or family. Dictated By: Giovanna Shelton APRN DD/ [id number] Signed By: <Electronically signed by YEFRI Shelton> 06/29/22 0903 [facility] Work Phone: Progress note Author Chiara Hoffmann [facility] December 28, 2022 9:59am Note Date/Time December 28, 2022 9:34 am [facility] [place] [address] Hem/Onc Follow Up Note - OP Signed Patient: Renuka Caceres MR#: [id number] : 1960 Acct:[id number] Age/Sex: 62 / F Type: REG RCR Copies to: DO Daniel Calvert MD Michael R Nill, MD FACS~ Subjective Date/Time of Service: Date of Service: 12/28/2022 Time of Service: 09:33 Chief Complaint: Patient is here today for a 6 month follow up visit for breast cancer. She had her mamogram done in November of 2022 HPI: 12/28/2022: Renuka is here for 6-month follow-up of breast cancer on letrozole. She notes that she is scheduled to see Dr. Kimble for colonoscopy on 01/11/2023 due to family history of colon cancer. She denies any change in bowelfrequency or bright red blood per rectum. Dr. Kimble does not regularly follow herfor her breast cancer and we performed clinical breast exam today with no evidence of recurrence. She notes that her hot flashes are stable on letrozole and that she no longer has muscle aches and pains since she stopped metformin. She remains compliant with letrozole and this was refilled today. Her mammogramwas performed at [facility] on 11/28/2022 showed heterogeneously dense breasts but no evidence of recurrence in right breast and no suspicious findingsof the left breast. Recommended routine mammography in 12 months. She also hada chest CT 11/28/2022 to follow-up for history of solitary nodules in the lung which showed a few tiny lung nodules less than 5 mm in size which are stable from prior CT scan November 2021. This likely does not need to be followed regularly. Last DEXA scan was normal at [place] 01/18/2022 will be due in 1 year. She will continue letrozole 2.5 mg daily to complete a 5 to 7-year course. Moderate complexity 30-minute visit to review outside imaging and exam. 06/29/2022: Renuka is here for follow-up for her right breast cancer on letrozole. She continues to do well without major joint complaints. She does note her hot flashes have increased since she started taking her diuretic in themornings about a month ago, but these remain tolerable. Otherwise no new complaints. Her energy is stable. She denies new lumps or skin changes on self-exam each month, and none noted on my exam in office today. She will follow-up with Dr. Hoffmann in 6 months. Next mammogram will be November. 04/13/2022: Renuka is here for follow-up on letrozole for her breast cancer. She is doing very well overall. She notes some muscular pain in her right side d/t increased physical activity. This comes and goes with exercise and is tolerable. She also has some knee pain with increased exercise d/t known meniscus injury. Otherwise she denies new complaints including hot flashes or worsening joint complaints. No skin changes or new lumps noted on self-exam. Shehad her baseline DEXA done on 01/18/2022 which showed normal bone density. She denies starting calcium and vitamin D previously so we again recommended she start supplementation while on letrozole. She will follow-up in [address] Hoffmann. 01/13/2022: Renuka is here for 3-month follow-up on letrozole therapy for T2 N0 M0 ER/VA positive breast cancer, status postlumpectomy in February 2021 with reexcision to negative margins.. She completed adjuvant radiation therapy March-April 2021. She started anastrozole in May 2022 but did not tolerate this well and stopped taking it 07/20/2021. She was changed to letrozole08/11/2021 and tolerates this well without significant hot flashes, myalgias, arthralgias. She has no skin changes, masses, or pain of the breast on self-exam. We reviewed her mammogram from [facility] performed 10/06/2021 which returned with heterogeneously dense breasts but no significant suspicious abnormalities and postsurgical changes in the right upper inner quadrant. She has not had baseline DEXA scan and we ordered this today. Advised to start calcium and vitamin D until DEXA findings which she will be contacted with afterreview. Next follow-up with nurse practitioner in 3 months, 6 months with me. Moderate complexity visit over 25 minutes for transfer of oncology care and review of osteopenia screening and recommendations for supplemental calcium/vitamin D. 10/20/2021: Renuka presents today in follow-up for her breast cancer on letrozole. She previously was on anastrozole but did not tolerate this d/t multiple hot flashes during the day and throughout the night, interrupting her sleep. She stopped taking anastrozole on 07/20/2021 and was switched to letrozole on 08/11/2021. She is doing better on this and continues with hot flashes, but these are more tolerable/less frequent and do not wake her up throughout the night. Otherwise she denies any new symptoms and feels well overall. She denies any new lumps or skin changes on self-exam. Her last breast exam was June 2021. She is due for her mammogram this month and has these done at [place]. Wewill get this record once it's completed. -- She will follow-up in [address] Hoffmann for exam and to follow-up on symptoms. She will call in sooner if needed. We will try to coordinate her next follow-up to be same day as her radiation follow-up appointment. 07/20/2021: Renuka presents in follow-up today July 20, 2021. She is having intractable hot flashes and night that keeps her up. She is on anastrozole. Renuka presented with breast cancer having had lumpectomy in January 31, 2021. She had a 4.5 cm invasive lobular breast cancer, 0 of 6 lymph nodes positive. ER and VA was positive, H ER 2 -. [facility] genetic testing was negative for BRCA 1 and 2. Oncotype DX showed low risk disease. She was started on radiation March 2021. Her family doctor is Dr. Juan Fowler and she was operated on by Dr. Salazar Kimble. CURYUNG: Now 62-year-old post-menopausal female- had menopause at age 53 and she did not take any HRT. She is a non-smoker and drinks alcohol occasionally and she is Ab0. She had been asymptomatic but gets her regular screening mammograms which previously had shown a suspicious area in the right breast was being followed up. Her screening mammogram in October 2020 was abnormal and subsequent diagnostic mammogram and ultrasound study showed 11 x 10 x 10 mm shadowing lesion at 1 o'clock position in the right breast. She had a stereotactic core biopsy on 12/22/2020 with confirmation of lobular carcinoma. 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 6 sentinel nodes were negative for metastatic disease in the primary tumor measured 4.5 cm in diameter. Her margins of resection were positive inferiorly and posteriorly andsubsequently, she had re-resection of the tumor bed on 02/23/2021. The final surgical margins were all negative and there was no residual carcinoma identified. Patient's Oncotype DX score is [address] Lopes did not plan to give any chemotherapy and she received a 6-week course of radiation therapy to the right breast and her treatment course was completed in May 2021. Patient was started on Arimidex at the end of May [address] Lopes. DIAGNOSIS: 1. pT1b pN0(sn-) Mx left sided invasive mammary carcinoma s/p lumpectomy and SLNbx 12/22/2015--8 total lymph nodes negative. Oncotype score LOW 11 (7% 10-year recurrence hormonal therapy alone). Hormone receptor positive, HER2 negative. 2. She completed adjuvant radiation in 02/2016 3. Adjuvant Arimidex started 03/2016 (changed to letrozole 08/11/2021 due to hot flashes). She takes calcium and vitamin D. Tolerating well. Plan 5-7 years of therapy. 4. Bilateral breast reduction by Dr. Antunez 08/23/2016 with no residual breast malignancy 5. Osteopenia with most recent DEXA scan 04/12/2018 showing AP spine T score - 2.1, left femoral neck T score -1.7, right femoral neck T score -1.4. Next bonedensitometry will be in 03/2020 6. Comorbidities hypothyroidism, depression, GERD - Summary of Therapies Summary of Therapies: She had a stereotactic core biopsy on 12/22/2020 with confirmation of lobular carcinoma. 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 -- 6 sentinel nodes were negative for metastatic disease in the primary tumor measured 4.5 cm in diameter. Her margins of resection were positive inferiorly and posteriorly. -- Re-resection of the tumor bed on 02/23/2021. The final surgical margins were all negative and there was no residual carcinoma identified. 2) Received 6-week course of radiation therapy to the right breast from March 2021- May 2021. 3) Patient was started on Arimidex May 2021 (at [place]). Did not tolerated/t hot flashes, so switched to letrozole 08/11/2021 -- Will continue letrozole for 7 years if well-tolerated (May 2028) ROS Details: All systems reviewed & no additional complaints except as documented Subjective/ROS - Narrative: CONSTITUTIONAL: Negative for fatigue, negative for fever or night sweats. HEAD AND NECK: Negative for changes in hearing and vision. Negative for mouth ulcers, nasal congestion and nasal drainage. PULMONARY: Negative for chest pain, cough and dyspnea. CARDIOVASCULAR: Negative for claudication and irregular heartbeat/palpitations. No history of coronary artery disease. GASTROINTESTINAL: Negative for abdominal pain, constipation, decreased appetite,diarrhea, nausea or vomiting. Scheduled screening colonoscopy 01/11/2023 and we will receive results. GENITOURINARY: Negative for dysuria and hematuria. ENDOCRINE: Negative for cold intolerance and heat intolerance (mild intermittenthot flashes are tolerable on letrozole). CENTRAL NERVOUS SYSTEM: Negative for gait disturbance and headache. PSYCHIATRIC: Negative for anxiety or depression. DERMATOLOGICAL: Negative for pruritus and rash. Negative for suspicious skin lesions. MUSCULOSKELETAL: Negative for back pain and bone/joint symptoms. HEMATOLOGICAL: Negative for bleeding and easy bruising. Negative for history of transfusion or thromboembolic disease ALLERGY: Negative for environmental allergies and food allergies. PMFSH - History Attestation statement: The following information was validated with the patient. Source: Old Records Reviewed - Medical History Medical History: Medical History (Last Reviewed 06/14/23 @ 09:49 by Chiara Hoffmann MD) Adenocarcinoma of right breast Ankle fracture Hyperlipemia Hypertension Lumbosacral spondylolysis Plantar fasciitis Seasonal allergies - Surgical History Surgical History: Surgical History (Last Reviewed 12/28/22 @ 09:49 by Chiara Hoffmann MD) History of tonsillectomy - Family History Family History: Family History (Last Reviewed 12/28/22 @ 09:49 by Chiara Hoffmann MD) Sister No significant family history Family/Other No significant family history - Social History Smoking Status: Never smoker Substance Use Type: None Home Medications & Allergies Allergies Sulfa (Sulfonamide Antibiotics) Allergy (Verified 12/28/22 09:30) Itching Home Medications amlodipine 5 mg tablet 5 mg PO DAILY 03/11/21 [History Confirmed 12/28/22] atorvastatin 40 mg tablet 40 mg PO DAILY 03/11/21 [History Confirmed 12/28/22] benazepril 20 mg tablet 20 mg PO DAILY 03/11/21 [History Confirmed 12/28/22] hydrochlorothiazide 25 mg tablet 25 mg PO DAILY 03/11/21 [History Confirmed 12/28/22] letrozole 2.5 mg tablet 2.5 mg PO DAILY #90 tabs 12/07/21 [Rx Confirmed 12/28/22] multivitamin 1 tab PO DAILY 12/28/22 [History Confirmed 12/28/22] Objective - Height/Weight Height/Weight: Height 5 ft 4 in Weight 90.265 kg - Vital Signs Vital Signs: 12/28/22 09:30 Temperature 97.9 F Pulse Rate [Left Brachial] 79 Respiratory Rate 16 Blood Pressure [Left Arm] 153/88 H 02 Sat by Pulse Oximetry 98 Oxygen Delivery Method Room Air - Pain Right Axillary Pain Intensity: 5 - Distress Screening Distress Screen Results: RN Distress Screening Start: 03/12/21 10:55 Freq: Status: Active Protocol: Document 04/27/21 11:19 DB (Rec: 04/27/21 11:19 DB [id number]) Distress Screening Distress Score: 1 Physical Concerns Feeling tired or a lack of energy Distress Screening Total 1 Physical Exam Narrative: CONSTITUTIONAL: The patient is in no acute distress. HEAD / FACE: Normocephalic; atraumatic, no scleral icterus. LYMPHATIC: No palpable cervical, supraclavicular, or axillary adenopathy. BREASTS: Right upper inner quadrant well-healed lumpectomy scar. No lumps or skin changes noted, no nipple discharge or deviation. No axillary adenopathy RESPIRATORY: Normal to inspection. Lungs clear to auscultation bilaterally, no wheezes, rhonchi or rales. CARDIOVASCULAR: Regular rate and rhythm. No murmurs, gallops, or rubs. ABDOMEN: Bowel sounds normoactive. Soft, nontender and non-distended. No hepatosplenomegaly. No masses noted. INTEGUMENTARY: The skin is unremarkable. No rashes. No suspicious lesions MUSCULOSKELETAL: Normal musculature, no joint deformities or abnormalities, normal range of motion for all four extremities. EXTREMITIES: No edema, cyanosis or clubbing. NEUROLOGICAL: Alert and oriented. Cranial nerves intact. No gross motor or sensory deficits. Ambulates independently. PSYCHIATRIC: No anxiety or evidence of depression. - ECOG Performance Status ECOG Score: 0 Results - Labs Labs: No labs for review - Impressions Imaging from [facility] reviewed: 11/28/2022: 3D diagnostic mammogram Breast composition: Heterogeneously dense, which may obscure small masses Findings: Diagnostic category 2, benign finding: Right breast: Stable architectural distortion consistent with postsurgical scarring within the upper inner quadrant posterior breast. No significant changes recurred. Left breast: No significant suspicious finding. No significant changes occurred. Recommendations: Routine mammogram and clinical evaluation in 12 months. 11/28/2022: CT chest without contrast History: Solitary nodule of lung; history of breast cancer Comparison: CT chest 12/06/2021. Findings: Lungs: Stable appearance of a few tiny lung nodules, less than 5 mm in size. A few calcified nodules compatible with chronic granulomas within the left lung, largest is 1 cm. Pleura with no mass, effusion, or pneumothorax. Impression: 1. Stable appearance of few small calcified and noncalcified nodules scattered within the lungs. No new nodules or overtly suspicious nodules. 2. 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 6 sentinel nodes were negative for metastatic disease in the primary tumor measured 4.5 cm in diameter. Her margins of resection were positive inferiorly and posteriorly and subsequently, she had re-resection of the tumor bed on 02/23/2021. The finalsurgical margins were all negative and there was no residual carcinoma identified. Estrogen receptor 95%, progesterone receptor 90%, HER2 negative (1+ IHC) documented on original biopsy 01/29/2021 Patient's Oncotype DX score is 24 and chemo was not recommended (1) Malignant neoplasm of upper-inner quadrant of right female breast Qualifiers: Estrogen receptor status: positive Qualified Code(s): C50.211 - Malignant neoplasm of upper-inner quadrant of right female breast; Z17.0 - Estrogen receptor positive status [ER+] 62-year-old post-menopausal female- had menopause at age 53 and she did not take any HRT. She is a non-smoker and drinks alcohol occasionally and she is Ab0. She had been asymptomatic but gets her regular screening mammograms which previously had shown a suspicious area in the right breast was being followed up. Her screening mammogram in October 2020 was abnormal and subsequent diagnostic mammogram and ultrasound study showed 11 x 10 x 10 mm shadowing lesion at 1 o'clock position in the right breast. She had a stereotactic core biopsy on 12/22/2020 with confirmation of lobular carcinoma. 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 6 sentinel nodes were negative for metastatic disease in the primary tumor measured 4.5 cm in diameter. Her margins of resection were positive inferiorly and posteriorly and subsequently, she had re-resection of the tumor bed on 02/23/2021. The final surgical margins were all negative and there was no residual carcinoma identified. Patient's Oncotype DX score is [address] Lopes did not plan to give any chemotherapy and she received a 6-week course of radiation therapy to the right breast and her treatment course was completed in May 2021. Patient was started on Arimidex at the end of May [address] Lopes at [place]. 07/20/2021: Stopped anastrozole due to severe hot flashes. The patient will call me in 2 weeks for follow-up to see if the hot flashes have resolved. If they have, we will try her on letrozole. If they have not we will talk to her about other options. One option could be tamoxifen or another selective estrogen receptor modulator. There are other modalities we could also try to alleviate hot flashes as well. She was not having this prior to initiation of anastrozole. 08/11/2021 phone call with improvement in hot flashes. Patient switched to letrozole at this time. 10/20/2021: She continues to tolerate the letrozole ok with less frequent hot flashes. Otherwise she denies any new complaints. No new lumps or skin changes on self- exam noted. She will have her mammogram done this month at [place] and will have results sent to us. Plan for follow-up in [address] Hoffmann for exam. We will coordinate this with her upcoming radiation oncology follow-up visit. She has no questions today and is in agreement with this plan. 01/13/2022: Still tolerating letrozole well with no findings of recurrence on clinical exam or mammogram reviewed from 12/06/2021. No baseline DEXA scan records therefore we will order DEXA scan today. She has advised to take supplemental calcium and vitamin D and to continue her letrozole 2.5 mg daily. Next follow-up for clinical exam with nurse practitioner in 3 months and with me in 6 months. She no longer follows with her primary surgeon. She also was evaluated by radiation oncology today with no new recommendations. This is a moderate complexity visit over 25 minutes for transfer of care from Dr. Lopes who is no longer in the practice. 04/13/2022: She continues to do well on letrozole without worsening hot flashes or joint complaints. Her baseline DEXA shows normal bone density. She will see Dr. Hoffmann in 3 months for follow-up and next mammogram will be due in November 2022. She has no questions and is in agreement with this plan. 06/29/2022: She continues to do well without evidence of recurrence on exam. She remains on letrozole without worsening joint complaints. She does note an increase in hot flashes since switching her diuretic dosing to the morning, but still tolerable. Her next mammogram will be due in November 2022. She will follow-up with Dr. Hoffmann in 6 months, sooner as needed. 12/28/2022: Tolerating letrozole well with minimal hot flashes and joint complaints have improved since she stopped letrozole. Her diabetes is followed regularly by Dr. Fowler. She is scheduled for screening colonoscopy in late December and recently had a follow-up chest CT for pulmonary nodules which were negative for any new nodules or significant change of likely granulomatous nodules. She should not require routine chest imaging. Her clinical breast exam and mammogram shows no evidence of recurrence. Continue medical oncology follow-up every 6 months on letrozole therapy for goal of 5 to 7 years of adjuvant therapy (I would encourage closer to 7 due to good tolerance and higher risk Oncotype score). This is a moderate complexity 30-minute visit to follow-up multiple outside studies. (2) Osteoporosis screening DEXA ordered for osteoporosis screening on aromatase inhibitor therapy. We discussed minimum calcium 500 mg with 400 international units vitamin D daily. If she has evidence of osteopenia or osteoporosis we may change her calcium and vitamin D recommendations and consider addition of bisphosphonate therapy. 04/13/2022: Baseline DEXA done 01/18/2022 with normal bone density. Will plan for repeat in January 2024. We again recommended initiation of calcium and vitamin D daily while on letrozole. 06/29/2022: She is on vitamin D, we recommended she add in calcium with this and she is in agreement. Due for next DEXA scan in January 2024. Results of normal DEXA are reported in current progress note. (3) Pulmonary nodule less than 6 mm determined by computed tomography of lung Patient had recent follow-up CT for pulmonary nodules which are all less than 1 cm in size. She likely does not require routine follow-up of these pulmonary nodules as they appear granulomatous, however I will defer this to her primary physician Dr. Fowler. (4) Diabetes mellitus type 2, controlled, without complications She was previously on metformin but this was discontinued due to myalgias and arthralgias. Now being observed diet control only by Dr. Fowler. (5) Encounter for monitoring aromatase inhibitor therapy Initial poor tolerance of anastrozole therapy started in early July 2021. She now has nearly resolved hot flashes on letrozole 2.5 mg daily started 08/11/2021. Continue for total 5 to 7-year course of aromatase inhibitor therapy. - Chemo Plan Chemo Plan (Dose, Rate, Freq): Letrozole 2.5 mg daily since July 2021. Continue for 5 to 7-year course. Goal of Treatment: Curative - Time with Patient Time Spent with Patient (Follow Up Visit): 35 minutes - Moderate complexity 30 visit follow-up exam and multiple outside imaging studies. Coordination of Care & Counseling Time: Greater than 50% of time spent with patient was for coordination of care (as documented) and [id number] counseling of patient and/or family. Dictated By: Chiara Hoffmann MD DD/ Signed By: <Electronically signed by MD Chiara Hoffmann> 12/28/2259 [facility] Work Phone: Reason for referral (narrative)* Reason Referral for screeni ng colonoscopy in asymptomatic high risk patient. Diagnosis 1 Encounter for screen ing colonoscopy (Z12.11) Referral Organization [facility] Keo baker Referring Provider First Name Singh Referring Provider Last Name Keo Referring Provider Specialty Internal Me humberto Referred Provider Salazar Muniz Referred Provider Specialty Surgery Referral Priority Routine [employer] [facility] Other Chief Complaint and Reason for Visit Chief Complaint Rt Breast Cancer Reason for Visit Malignant neoplasm o f upper-inner quadrant of right female breast Chief Complaint Rt Breast Cancer Reason for Visit Malignant neoplasm o f upper-inner quadrant of right female breast Osteoporosis screening Chief Complaint M25.561 Rt Breast Cancer Reason for Visit Encounter for monito ring aromatase inhibitor therapy Malignant neoplasm of upper-inner quadrant of right female breast Osteoporosis screening Chief Complaint Rt Breast Cancer Reason for Visit Encounter for monito ring aromatase inhibitor therapy Malignant neoplasm of upper-inner quadrant of right female breast Osteoporosis screening Chief Complaint Rt Breast Cancer Reason for Visit Diabetes mellitus ty pe 2, controlled, without complications Encounter for monitoring aromatase inhibitor therapy Malignant neoplasm of upper-inner quadrant of right female breast Osteoporosis screening Pulmonary nodule less than 6 mm determined by computed tomography of lung Family History Relationship Condition Age at Onset Recorded Date/T mary alice sister No pertinent family history Unknown family member No pertinent family history Unknown Advance Directives Advance Directive Response Recorded Date/ Time Advance Directives No March 3:52pm Advance Directive Response Recorded Date/ Time Advance Directives No March 2:52pm Summary Purpose Additional Source Comments Care Teams (unrecognized sec tion and content) Team Status: Active Member Role Status Dates Thiago Durbin MD Attending Provider Active Singh Fowler DO Primary Care Provider Active Daniel Lopes MD Referring Provider Active Team Status: Active Member Role Status Dates Singh Fowler , DO Primary Care Provider Active Team Status: Active Member Role Status Dates Singh Fowler , DO Primary Care Provider Active Daniel Lopes MD Referring Provider Active Chiara Hoffmann MD Attending Provider Active Team Status: Inactive Member Role Status Dates Singh Fowler , DO Primary Care Provider Active Naga Acuna MD Attending Provider Active Goals (unrecognized section and content) Goals may be documented in a n alternate section REASON FOR VISIT (unrecogniz ed section and content) Right Knee [phone] COVID negative, possible sinus infectionNo InformationNo InformationRefill6 MONTH CHECK UPLab ResultsRefillNo InformationNo Information4 month Follow upNo InformationCT scan6 MONTH CHECK UPLab ResultsNo InformationNo Information4 month Follow upsore throat, cough , testing for COVID INFORMATION SOURCE (unrecogn ized section and content) DATE CREATED AUTHOR [facility]29/2022 [facility] DATE CREATED AUTHOR AUTHOR'S ORGANIZ ATION 01/13/2023 [facility] DATE CREATED AUTHOR AUTHOR'S ORGANIZ ATION 06/30/2023 [facility] FOR RECORDS PERTAINING TO PATIENTS WHO ARE OR HAVE BEEN ENROLLED IN A CHEMICAL DEPENDENCY/SUBSTANCEABUSE PROGRAM, SOME INFORMATION MAY BE OMITTED. This clinical summary was aggregated from multiple sources. Caution should be exercised in using it in the provision of clinical care. This summary normalizes information from multiple sources, and as a consequence, information in this document may materially change the coding, format and clinical context of patient data. In addition, data may be omitted in some cases. CLINICAL DECISIONS SHOULD BE BASED ON THE PRIMARY CLINICAL RECORDS. [employer] provides no warranty or guarantee of the accuracy or completeness of information in this document.
[2023-10-30 00:58] VITALS: BP 160/80; PULSE 86; TEMP 36.6; O2SAT 95; BMI 34.3
--- NOTE | 2023-10-30 01:18 | XR_ITS ---
The [address] [address] Patient Name: PRICE CACERES MRN: [id number] date: 1960 Sex: F Assigned Patient Location: ER Current Patient Location: Accession/Order Number: [id number] Exam Date: 10/30/2023 01:25 Report Date: 10/30/2023 04:22 At the request of: GAYATHRI MARKER Procedure: XR hand LT min 3V EXAM: XR hand LT min 3V, XR wrist LT min 3V HISTORY: left thumb/ wrist pain COMPARISON: None. TECHNIQUE: 3 views of the left wrist and 3 views of the left hand were obtained. FINDINGS: No acute fracture or dislocation is seen. There is a small well-corticated ossific density at the tip of the ulnar styloid process which is likely related to remote trauma. XR/XR hand LT min 3V IMPRESSION: 1. No acute fracture or dislocation of the left wrist or left hand is seen. If pain persists, repeat radiographs are recommended in 7-10 days. Electronically authenticated by: Nigel DAMICO Date: 10/30/2023 04:22
--- NOTE | 2023-10-30 01:19 | XR_ITS ---
The [address] [address] Patient Name: PRICE CACERES MRN: [id number] date: 1960 Sex: F Assigned Patient Location: ER Current Patient Location: Accession/Order Number: [id number] Exam Date: 10/30/2023 01:25 Report Date: 10/30/2023 04:22 At the request of: GAYATHRI MARKER Procedure: XR wrist LT min 3V EXAM: XR hand LT min 3V, XR wrist LT min 3V HISTORY: left thumb/ wrist pain COMPARISON: None. TECHNIQUE: 3 views of the left wrist and 3 views of the left hand were obtained. FINDINGS: No acute fracture or dislocation is seen. There is a small well-corticated ossific density at the tip of the ulnar styloid process which is likely related to remote trauma. XR/XR wrist LT min 3V IMPRESSION: 1. No acute fracture or dislocation of the left wrist or left hand is seen. If pain persists, repeat radiographs are recommended in 7-10 days. Electronically authenticated by: Nigel DAMICO Date: 10/30/2023 04:22
--- NOTE | 2023-10-30 01:20 | ED_ITS ---
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 Pain is worse with movement of the thumb and at that time, the pain shoots up into her left forearm. She states that her son requested that she get it checked out because she has almost dropped her 2-year-old grandson several times. She denies any injury. Pain is worse with extension of the left thumb. There is no numbness or tingling. She is concerned that she may have carpal tunnel but does not have any numbness or tingling in her fingers She states she has had tendinitis in her thumbs in the past. She also has arthritis in her knees and thinks she may be developing arthritis in her hands. Related Data Home Medications ?Medication ?Instructions ?Recorded ?Confirmed amlodipine 5 mg tablet 5 mg PO DAILY 01/11/23 01/11/23 atorvastatin 40 mg tablet 40 mg PO DAILY 01/11/23 10/30/23 benazepril 40 mg tablet 40 mg PO DAILY 01/11/23 01/11/23 hydrochlorothiazide 25 mg tablet 25 mg PO DAILY 01/11/23 01/11/23 letrozole 2.5 mg tablet 2.5 mg PO Q24H 01/11/23 10/30/23 Allergies Allergy/AdvReac Type Severity Reaction Status Date / Time Sulfa (Sulfonamide Allergy Hives Verified 10/30/23 00:58 Antibiotics) Opioid HPI Opioid Management Most Recent Pain and Opioid Data: No Data to Display Review of Systems ROS Status of ROS 10 or more systems reviewed and unremark able except as noted in history and below [facility] Medical History (Updated 10/30/23 @ 02:36 by Kristine Garvey MD) Seasonal allergic rhinitis ?J30.2 - Other seasonal allergic rhinitis (ICD-10) Pulmonary nodule ?R91.1 - Solitary pulmonary nodule (ICD-10) Back pain ?M54.9 - Dorsalgia, unspecified (ICD-10) Breast cancer ?C50.919 - Malignant neoplasm of unspecified site of unspecified female breast (ICD-10) Migraine ?G43.909 - Migraine, unspecified, not intractable, without status migrainosus (ICD-10) High cholesterol ?E78.00 - Pure hypercholesterolemia, unspecified (ICD-10) Hypertension ?I10 - Essential (primary) hypertension (ICD-10) Prediabetes ?R73.03 - Prediabetes (ICD-10) Surgical History (Updated 01/02/23 @ 11:53 by Alaina Granados NP) History of section ?Z98.891 - History of uterine scar from previous surgery (ICD-10) History of tonsillectomy ?Z90.89 - Acquired absence of other organs (ICD-10) History of ankle surgery (06/04/19) ?Z98.890 - Other specified postprocedural states (ICD-10) History of breast biopsy ?Z98.890 - Other specified postprocedural states (ICD-10) History of breast surgery (02/22/21) ?Z98.890 - Other specified postprocedural states (ICD-10) H/O breast surgery ?Z98.890 - Other specified postprocedural states (ICD-10) Family History (Updated 01/02/23 @ 11:49 by Alaina Granados NP) Other Family history of breast cancer Family history of colon cancer Family history of diabetes mellitus Family history of hypertension Family history of myocardial infarction Social History Within the past year, how often did you have a drink containing alcohol: monthly or less Smoking status: Never smoker Non-prescribed substance use: denies use Highest level of school completed/degree received: high school graduate Exam Narrative Exam Narrative: Nurses note and vital signs reviewed and patient is not hypoxic. Blood pressure is elevated at 160/80, she takes her blood pressure medications at night General: The patient appears well and in no apparent distress. Patient is resting comfortably on cart. Skin: Warm, dry, no pallor noted. There is no rash noted. Head: Normocephalic, atraumatic Eye: Normal conjunctiva, no drainage, EOMI. PERRL Cardiovascular: Regular Rate and Rhythm, pulses are brisk and equal bilaterally Respiratory: Patient is in no distress, no accessory muscle use, lungs are clear to auscultation, no wheezing, rales or rhonchi Back: non-tender, no CVA tenderness bilaterally to percussion. Musculoskeletal: There is no notable swelling redness or bruising to the left hand. There is mild tenderness to the left thumb at the base of the thumb and metacarpal. No bony abnormality noted. There is mild tenderness to the left thumb with extension and and adduction. She is able to approximate the thumb and all fingers. radial pulses are brisk and equal bilaterally. Capillary refill in the hand is normal. Neurological: A&O x4, normal speech Psychiatric: Cooperative Constitutional Vital Signs, click to edit/add: Last Vital Signs Temp 98 F 10/30/23 00:58 Pulse 86 10/30/23 00:58 Resp 18 10/30/23 00:58 BP 160/80 H 10/30/23 00:58 Pulse Ox 95 10/30/23 00:58 O2 Del Method Room Air 10/30/23 00:58 Course Vital Signs Vital signs: Vital Signs Temperature 98 F 10/30/23 00:58 Pulse Rate 86 10/30/23 00:58 Respiratory Rate 18 10/30/23 00:58 Blood Pressure 160/80 H 10/30/23 00:58 Pulse Oximetry 95 10/30/23 00:58 Oxygen Delivery Method Room Air 10/30/23 00:58 Temperature 98 F 10/30/23 00:58 Pulse Rate 86 10/30/23 00:58 Respiratory Rate 18 10/30/23 00:58 Blood Pressure 160/80 H 10/30/23 00:58 Pulse Oximetry 95 10/30/23 00:58 Oxygen Delivery Method Room Air 10/30/23 00:58 MDM - Extremity Injury (Upper) MDM Narrative Medical decision making narrative: This 63-year-old female who is right-hand dominant presents for evaluation of le ft thumb pain that occurs when she extends or adducts her thumb and shoots pain up into her mid to distal left forearm. She denies any injury. She is neurovascularly intact. She states she does not have the pain all the time. She states she does not have the pain all the time but when she tries to lift something heavy she feels certain degree of weakness and is unable to lift her 2-year-old grandson without the feeling that she is going to drop him. An x-ray of the wrist and hand shows an area of calcification along the medial aspect of the forearm. I suspect this is some degree of calcific tendinitis. The x-rays have not been read but the patient is stable for discharge and will receive a copy of the x-ray report tomorrow during her shift. She was placed in a thumb spica splint for comfort, stability and compression. She declined the need for anything for pain. She states she takes ibuprofen at night with her nighttime medications which also include her blood pressure medications. She will be referred to outpatient orthopedics at her request. Medical Records Medical records narrative: [place] [address] XRay Report Signed Patient: PRICE CACERES MR#: [id number] : 1960 Acct:[id number] Age/Sex: 63 / F ADM Date: 10/30/23 Loc: ER Attending Dr: Ordering Physician: Kristine Garvey Date of Service: 10/30/23 Procedure(s): XR hand LT min 3V Accession Number(s): [id number] cc: Singh Crowley D.O.; Kristine Garvey~ The [place] [id number] Patient Name: PRICE CACERES MRN: [id number] date: 1960 Sex: F Assigned Patient Location: ER Current Patient Location: Accession/Order Number: [id number] Exam Date: 10/30/2023 01:25 Report Date: 10/30/2023 04:22 At the request of: KRISTINE GARVEY Procedure: XR hand LT min 3V EXAM: XR hand LT min 3V, XR wrist LT min 3V HISTORY: left thumb/ wrist pain COMPARISON: None. TECHNIQUE: 3 views of the left wrist and 3 views of the left hand were obtained. FINDINGS: No acute fracture or dislocation is seen. There is a small well-corticated ossific density at the tip of the ulnar styloid process which is likely related to remote trauma. XR/XR hand LT min 3V IMPRESSION: 1. No acute fracture or dislocation of the left wrist or left hand is seen. If pain persists, repeat radiographs are recommended in 7-10 days. Electronically authenticated by: Nigel DAMICO Date: 10/30/2023 04:[address] [address] XRay Report Signed Patient: PRICE CACERES MR#: [id number] : 1960 Acct:[id number] Age/Sex: 63 / F ADM Date: 10/30/23 Loc: ER Attending Dr: Ordering Physician: Kristine Garvey Date of Service: 10/30/23 Procedure(s): XR wrist LT min 3V Accession Number(s): [id number] cc: Singh Crowley D.O.; Kristine Marker~ The [address] [address] Patient Name: PRICE CACERES MRN: [id number] date: 1960 Sex: F Assigned Patient Location: ER Current Patient Location: Accession/Order Number: [id number] Exam Date: 10/30/2023 01:25 Report Date: 10/30/2023 04:22 At the request of: KRISTINE MARKER Procedure: XR wrist LT min 3V EXAM: XR hand LT min 3V, XR wrist LT min 3V HISTORY: left thumb/ wrist pain COMPARISON: None. TECHNIQUE: 3 views of the left wrist and 3 views of the left hand were obtained. FINDINGS: No acute fracture or dislocation is seen. There is a small well-corticated ossific density at the tip of the ulnar styloid process which is likely related to remote trauma. XR/XR wrist LT min 3V IMPRESSION: 1. No acute fracture or dislocation of the left wrist or left hand is seen. If pain persists, repeat radiographs are recommended in 7-10 days. Discharge Plan Discharge Stand Alone Forms: Portal Instructions Chief Complaint: Extremity Injury, Upper Clinical Impression: Tendinitis of thumb Patient Disposition: Home, Self-Care Time of Disposition Decision: 02:36 Condition: Good Mode of Transportation: Private Vehicle Prescriptions / Home Meds: No Action atorvastatin 40 mg tablet 40 mg PO DAILY amlodipine 5 mg tablet 5 mg PO DAILY letrozole 2.5 mg tablet 2.5 mg PO Q24H benazepril 40 mg tablet 40 mg PO DAILY hydrochlorothiazide 25 mg tablet 25 mg PO DAILY Print Language: Armenian Instructions: Tendinitis (ED) Referrals: Singh Crowley DO [Primary Care Provider] - 1 week Andrew Escobedo MD [Physician] - 1 week Discharge Date/Time: 10/30/23 02:47
== END 2023-10-30 02:47 | disposition home or self-care (01) ==
PROVIDERS: Emergency Provider Emergency Medicine; PCP Internal Medicine
DX: M77.8 Other enthesopathies, not elsewhere classified (principal); I10 Essential (primary) hypertension; E78.00 Pure hypercholesterolemia, unspecified; R73.03 Prediabetes; Z98.891 History of uterine scar from previous surgery; Z90.89 Acquired absence of other organs; Z98.890 Other specified postprocedural states; Z79.899 Other long term (current) drug therapy; Z85.3 Personal history of malignant neoplasm of breast
CPT/HCPCS: 73110; 73130; 99284

== ENCOUNTER 2023-11-08 08:46 | Outpatient (OUT) | payer BC, MEDICARE, SELFPAY ==
[2023-11-08 09:14] LABS: Estimated Average Glucose 177 mg/dL; Glycohemoglobin A1C 7.8 % (4.5-6.2)
[2023-11-08 09:26] LABS: Basophils Percent Auto 0.4 % (0.2-2.0); Eosinophils Absolute Auto 0.2 10^3/uL (0.0-0.7); Eosinophils Percent Auto 2.9 % (0.9-7.0); Hematocrit 46.1 % (36.0-48.0); Hemoglobin 15.3 g/dL (12.0-16.0); Immature Granulocytes Abs Auto 0.02 10^3/uL (0.00-0.03); Immature Granulocytes Pct Auto 0.3 % (0.0-0.5); Lymphocytes Absolute Auto 1.9 10^3/uL (1.2-3.8); Lymphocytes Percent Auto 27.5 % (20.5-60.0); Mean Corpuscular HGB Conc 33.2 g/dL (29.9-35.2); Mean Corpuscular Hemoglobin 29.8 pg (26.7-34.0); Mean Corpuscular Volume 89.7 fL (81.0-99.0); Monocytes Absolute Auto 0.6 10^3/uL (0.3-0.8); Monocytes Percent Auto 9.2 % (1.7-12.0); Neutrophils Absolute Auto 4.2 10^3/uL (1.4-6.5); Neutrophils Percent Auto 59.7 % (43.0-75.0); Platelet Count 174 10^3/uL (150-450); Red Blood Count 5.14 10^6/uL (4.20-5.40); Red Cell Distribution Width 12.1 % (11.0-15.0)
[2023-11-08 10:01] LABS: Alanine Aminotransferase 50 U/L (14-59); Albumin Globulin Ratio 1.1; Albumin Level 3.9 g/dL (3.4-5.0); Alkaline Phosphatase 98 U/L (46-116); Anion Gap 14.4; Aspartate Amino Transferase 24 U/L (15-37); BUN Creatinine Ratio 22.8; Bilirubin Total 0.8 mg/dL (0.2-1.0); Calcium 9.7 mg/dL (8.5-10.1); Carbon Dioxide 29.4 mmol/L (21.0-32.0); Chloride 100 mmol/L (98-107); Chol HDL Ratio 3.6; Cholesterol 141 mg/dL (<=200); Estimated GFR (African America >60 (>=60); Estimated GFR (Non-African Ame >60 (>=60); Globulin 3.6 g/dL; Glucose 145 mg/dL (74-106); HDL Cholesterol 39 mg/dL (40-60); Potassium 3.8 mmol/L (3.5-5.1); Sodium 140 mmol/L (136-145); Thyroid Stimulating Hormone 2.276 uIU/mL (0.358-3.740); Total Protein 7.5 g/dL (6.4-8.2); Triglycerides 177 mg/dL (<=150); VLDL CHOLESTEROL 35.4 mg/dL
== END 2023-11-08 08:47 | disposition home or self-care (01) ==
LOC: LAB 08:46
PROVIDERS: PCP Internal Medicine; Visit Provider Internal Medicine
DX: Z00.00 Encounter for general adult medical examination without abnormal findings (principal)
CPT/HCPCS: 36415; 80053; 80061; 83036; 84443; 85025

== ENCOUNTER 2023-11-11 17:58 | Outpatient (OUT) | payer BC, MEDICARE, SELFPAY ==
--- NOTE | 2023-11-11 | XR_ITS ---
[address] [address] Patient Name: PRICE CACERES MRN: [id number] date: 1960 Sex: F Assigned Patient Location: [facility] Current Patient Location: [facility] Accession/Order Number: [id number] Exam Date: 11/11/2023 18:45 Report Date: 11/14/2023 06:10 At the request of: RANJIT BAGLEY Procedure: XR knee RT 4V PROCEDURE: XR knee RT 4V HISTORY: M25.561 Right Knee Pain COMPARISON: None. FINDINGS: BONES:Moderate or greater narrowing of the medial joint space. Degenerative osteophyte along the articular margins of medial compartment. No fracture or dislocation. SOFT TISSUES:No visible soft tissue swelling. EFFUSION:None visible. OTHER: Negative. XR/XR knee RT 4V IMPRESSION: 1. Moderate to marked degenerative joint disease. Electronically authenticated by: PABLO CHILD Date: 11/14/2023 06:10
--- OUTSIDE RECORDS SUMMARY | 2023-11-11 18:04 | XMS_ITS | CCD ---
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 Role Phone SINGH FOWLER Primary Care Physician [phone] MD Thiago Durbin Attending Provider [phone] DO Singh Fowler Primary Care Provider MD Daniel Lopes Referring Provider DO Singh Fowler Primary Care Provider MD Daniel Lopes Referring Provider Unavailable MD Chaira Hoffmann Attending Provider [phone] Vee Wadsworth Unavailable DO Singh Fowler Primary Care Provider MD Naga Acuna Attending Provider MD Daniel Lopes Referring Provider Unavailable MD Chiara Hoffmann Attending Provider [phone] DO Singh Fowler Primary Care Provider [phone] MD Daniel Lopes Referring Provider Unavailable MD Chiara Hoffmann Attending Provider [phone] Singh Fowler Unavailable Sydney Mayes Unavailable [...] KEO, DR WINTERS Attending Unavailable REQUEST, DR ADAMSON LISTED Consulting Unavaila ble KEO, DR WINTERS [...] DR WINTERS Primary Care Unavailable SHUN, DR CHIARA [employer] Consulting Unavailable [...] Unavailable Keo, DO Winters Primary Care Provider [phone] MD Daniel Lopes Referring Provider Unavailable MD Chiara Hoffmann Attending Provider [phone] Salazar MUNIZ Attending Unavailable NILL, Salazar R Attending Unavailable Keo, DO Winters Primary Care Provider [phone] MD Daniel Lopes Referring Provider Unavailable MD Chiara Hoffmann Attending Provider [phone] Chiara Hoffmann Admitting Unavailable Shun, Chiara Attending Unavailable Keo, Singh Primary Care Unavailable Daniel Lopes Referring Unavailable Allergies Allergy Classification Reported Allergen(s) Allergy Type Date of Onset Reaction(s) Facility (2 sources) Sulfonamides (Antibiotic); Translations: [sulfa drugs] Drug allergy Eruption of skin (disorder) [facility] (7 sources) Sulfonamides (Antibiotic); Translations: [Sulfa (Sulfonamide Antibiotics)] Allergy to substance 10-21-19 Itching [facility] (1 source) sulfaSALAzine Drug Allergy Unknown [employer] Other (18 sources) Substance with sulfonamide structure and antibacterial mechanism of action (substance) Drug allergy Unknown [employer] Other (1 source) Sulfonamides (Antibiotic) Drug allergy (disorder) [facility] (1 source) Wheat preparation Drug Allergy 06-17-20 [facility] Medications Current Medications Medication Drug Class(es) [...] Orally Onc e a day Active Hyaluronic Et-Bcwmrobff-Svxs (Radiaplexrx) Gel (6 sources) Start: 05-18-2021 Hyaluronic Na- Allantoin-Aloe (Radiaplexrx) Gel Active 1 APPLIC TOPICAL Three times daily May 18, 2021 9:12am Start: 05-18-2021 End: 12-28-2022 Hyaluronic Sc-Tleyryslg-Bhnq (Radiaplexrx) Gel Discontinued 1 APPLIC TOPICAL Three times daily May 17, 2021 11:00pm December 28, 2022 8:29am Start: 05-18-2021 End: 12-28-2022 Hyaluronic Im-Gmkmczhrr-Rkhk (Radiaplexrx) Gel Discontinued 1 APPLIC TOPICAL Three [...] Date: 01/11/21 Status: Ordered Vitamin E Not-Alfonzo wallace/PRN Vitamin E Not-Alfonzo wallace Vitamin E Active [...] 06-29-2023 04-13-2022 Episodic Other aftercare (1 source) custodial (current) use of aromatase inhibitors; Translations: [custodial (current) use of aromatase inhibitors] Onset: 06-29-2023 [...] 01-03-2022 Episodic Other aftercare (1 source) Other penitentiary (current) drug therapy; Translations: [[facility] CURRENT DRUG THERAPY] Onset: 02-28-2022 Episodic Other aftercare (1 source) custodial (current) use of oral hypoglycemic drugs; Translations: [[facility] USE ORAL HYPOGLYCEMIC DX] Onset: 01-03-2022 Episodic [...] Range Facility Outside Colonoscopyon 2022 Outside Colonoscopy [id number]#1.00C D:127 [facility] Reminderson 01-12-2023 Reminders - From: Palmira Mei LPN To: N - Clinical; Sent: 01/12/2023 14:47:17 EDT Show up: 12/11/2032 07:00:00 EDT Subject: colonoscopy recall Due Date/Time: 01/11/2033 07:00:00 EDT Reminder/Recall Patient due for screening colonoscopy 01/11/2033. [facility] Consultation Noteon 12-29-19 Consultation Note [id number]#1.00C D:127 [facility] Pre-Certification Formon Pre-Certification Form [id number] D:127 [facility] Consent for Procedure/Surger yon 12-06-2022 Consent for Procedure/Surgery [id number]#1.00C D:127 Normal [facility] Facesheeton 12-05-2022 Facesheet [id number] D:127 Normal [facility] Ambulatory Visit Summaryon 0 12-02-2022 Ambulatory Visit [...] fasciitis Syndesmotic disruption of left ankle Normal [facility] CT CHEST WO CONon 11-28-2022 CT CHEST [...] by: ANDREW MORRIS Date: 2022-11-28 09:52 Normal [facility] CT CHEST WO CON Klevosti Other [facility]D [place] CA Don 11-28-2022 [facility] CAD Patient: RENUKA CACERES Exam Date: 11/28/2022 : 1960 Gender:F Ordering : MRS. GIOVANNA SHELTON BUTTON SEWER Admission #: [id number] Family : DR SINGH FOWLER D.O. Order #: [id number] CLICK HERE TO VIEW EXAM RADIOLOGY REPORT [...] colon/kidney cancer at age 38. LOCATION: [facility] BREAST COMPOSITION: Heterogeneously dense,which may obscure small [...] Morris M.D. on 11/28/2022 at 09:41 Normal [facility] Physician Referralon 023 Physician Referral [id number]#1.00C D:127 Normal [facility] Physician Referralon 023 Physician Referral [id number] D:127 Normal [facility] CBC AUTO DIFFon 09-27-2022 BASO # 0.0 103/ul Normal 0.0-0.1 [facility] Comment on above: Performed By: #### C BC ####[facility] [address] [place], [place] [address]Fm. Marysol Peace Basophils/100 WBC (Bld) 0.2 % Normal 0.2-2.0 [facility] Comment on above: Performed By: #### C BC ####[facility] [address] [place], [place] [address]GlLyubov Peace EO # 0.2 103/ul Normal 0.0-0.7 [facility] Comment on above: Performed By: #### C BC ####[facility] [address] [place] [address]Dr. Marysol Peace Eosinophils/100 WBC (Bld) 1.3 % Normal 0.9-7.0 [facility] Comment on above: Performed By: #### C BC ####[facility] [address] [place] [address]Dr. Marysol Peace Erythrocyte distribution width (RBC) [Ratio] 13.0 % Normal 11.0-15.0 [facility] Comment on above: Performed By: #### C BC ####[facility] M[address] [place], [place] [address]Dr. Marysol Peace Hematocrit (Bld) [Volume fraction] 46.6 % Normal 36.0-48.0 [facility] Comment on above: Performed By: #### C BC ####[facility] Ougc[address] [place], [place] [address]Dr. Marysol Peace Hemoglobin (Bld) [Mass/Vol] 15.7 g/dL Normal 12.0-16.0 [facility] Comment on above: Performed By: #### C BC ####[facility] Oz[address] [place], [place] [address]Dr. Marysol Peace IG # 0.04 10e3/ul Critically high 0.00-0.[address] [facility] Comment on above: Performed By: #### C BC ####[facility] Ek[address] [place], [place] [address]Dr. Marysol Peace IG % 0.3 % Normal 0.0-0.5 [facility] Comment on above: Performed By: #### C BC ####[facility] Tst[address] [place], [place] [address]Dr. Marysol Peace LYMPH # 0.5 103/ul Critically low 1.2-3.8 [facility] Comment on above: Performed By: #### C BC ####[facility] Bygpthky[address] [place], [place] [address]Dr. Marysol Peace Lymphocytes/100 WBC (Bld) 3.8 % Critically low 20.5-60.0 [facility] Comment on above: Performed By: #### C BC ####[facility] [address] [place] [address]Dr. Marysol Peace MANUAL DIFF REQ NO Normal [facility] Comment on above: Performed By: #### C BC ####[facility] [address] [place] [address]Dr. Marysol Peace MCH (RBC) [Entitic mass] 29.2 pg Normal 26.7-34.0 [facility] Comment on above: Performed By: #### C BC ####[facility] [address] [place] [address]Dr. Marysol Peace MCHC (RBC) [Mass/Vol] 33.7 g/dL Normal 29.9-35.2 [facility] Comment on above: Performed By: #### C BC ####[facility] Hyog[address] [place], [place] [address]Dr. Marysol Peace MCV (RBC) [Entitic vol] 86.6 fL Normal 81.0-99.0 [facility] Comment on above: Performed By: #### C BC ####[facility] [address] [place], [place] [address]Dr. Marysol Peace MONO # 0.3 103/ul Normal 0.3-0.8 [facility] Comment on above: Performed By: #### C BC ####[facility] [address] [place], [place] [address]Dr. Marysol Peace Monocytes/100 WBC (Bld) 2.8 % Normal 1.7-12.0 [facility] Comment on above: Performed By: #### C BC ####[facility] [address] [place], [place] [address]Dr. Marysol Peace NEUT # 10.7 103/ul Critically high 1.4-6.5 [facility] Comment on above: Performed By: #### C BC ####[facility] [address] [place], [place] [address]Dr. Marysol Peace Neutrophils/100 WBC (Bld) 91.6 % Critically high 43.0-75.0 [facility] Comment on above: Performed By: #### C BC ####[facility] [address] [place] [address]Dr. Marysol Peace Platelet mean volume (Bld) [Entitic vol] 11.0 fL Normal 9.5-13.5 [facility] Comment on above: Performed By: #### C BC ####[facility] [address] [place] [address]Dr. Marysol Peace PLT 192 103/ul Normal 150-450 [facility] Comment on above: Performed By: #### C BC ####[facility] [address] [place] [address]Dr. Marysol Peace RBC 5.38 106/ul Normal 4.20-5.40 [facility] Comment on above: Performed By: #### C BC ####[facility] [address] [place] [address]Dr. Marysol Peace WBC 11.7 103/ul Critically high 4.0-11.0 [facility] Comment on above: Performed By: #### C BC ####[facility] [address] [place] [address]Dr. Marysol Peace GLYCOHEMOGLOBIN A1Con 2022 ADA RECOMMENDATION SEE BELOW Normal [facility] Comment on above: Result Comment: ADA RECOMMENDED LIMIT 4.0 - 6.0 ADA THERAPEUTIC TARGET < 7.0 ACTION SUGGESTED > 7.0 Performed By: #### A 1C ####[facility] [address] [place], [place] [address]Dr. Marysol Peace Glucose [Mass/Vol] 154 mg/dL Normal [facility] Comment on above: Performed By: #### A 1C ####[facility] [address] [place] [address]Dr. Marysol Peace HbA1c (Bld) [Mass fraction] 7.0 % Critically high 4.5-6.2 [facility] Comment on above: Performed By: #### A 1C ####[facility] Dhixuis[address] [place], [place] [address]DrLyubov Marysol Peace LIPID PROFILEon 09-27-2022 CHOL-HDL RATIO NORM SEE BELOW Normal [facility] Comment on above: Result Comment: 3.3 - 4.4 LOW RISK 4.4 - 7.1 AVERAGE RISK 7.1 - 11.0 MODERATE RISK >11.0 HIGH RISK Performed By: #### L IPID, CMP, TSH ####[facility] [address] [place], [place] [address]Zh. Piedadbre Peace Cholesterol [Mass/Vol] 136 mg/dL Normal <=200 [facility] Comment on above: Performed By: #### L IPID, CMP, TSH ####[facility] [address] [place] [address]Dr. Marysol Peace Cholesterol in HDL [Mass/Vol] 36 mg/dL Critically low 40-60 [facility] Comment on above: Performed By: #### L IPID, CMP, TSH ####[facility] [address] [place] [address]Dr. Marysol Peace Cholesterol in LDL [Mass/Vol] 66.2 mg/dL Normal [facility] Comment on above: Performed By: #### L IPID, CMP, TSH ####[facility] [address] [place] [address]Dr. Marysol Peace Cholesterol.total/C holesterol in HDL [Mass ratio] 3.8 {ratio} Normal [facility] Comment on above: Performed By: #### L IPID, CMP, TSH ####[facility] [address] [place] [address]Dr. Marysol Peace HDL NORMAL > or = 60 mg/dl - LO W CARDIOVASCULAR RISK <40 mg/dl - HIGH CARDIOVASCULAR RISK Normal [facility] Comment on above: Performed By: #### L IPID, CMP, TSH ####[facility] [address] [place] [address]Dr. Marysol Peace LDL CALC NORMAL SEE BELOW Normal [facility] Comment on above: Result Comment: <100 mg/dl OPTIMAL 100 - 129 mg/dl NEAR OR ABOVE OPTIMAL 130 - 159 mg/dl BORDERLINE HIGH 160 - 189 mg/dl HIGH >190 mg/dl VERY HIGH Performed By: #### L IPID, CMP, TSH ####[facility] [address] [place] [address]Dr. Marysol Peace Triglyceride [Mass/Vol] 169 mg/dL Critically high <=150 [facility] Comment on above: Performed By: #### L IPID, CMP, TSH ####[facility] [address] [place] [address]Dr. Marysol Peace VLDL CALC 33.8 mg/dL Normal [facility] Comment on above: Performed By: #### L IPID, CMP, TSH ####[facility] [address] [place] [address]Dr. Marysol Peace PROF 14(COMP METB)on 023 Albumin [Mass/Vol] 3.9 g/dL Normal 3.4-5.0 [facility] Comment on above: Performed By: #### L IPID, CMP, TSH ####[facility] [address] [place] [address]Dr. Marysol Peace Albumin/Globulin [Mass ratio] 1.1 {ratio} Normal [facility] Comment on above: Performed By: #### L IPID, CMP, TSH ####[facility] [address] [place] [address]Dr. Marysol Peace ALP [Catalytic activity/Vol] 92 U/L Normal 46-116 [facility] Comment on above: Performed By: #### L IPID, CMP, TSH ####[facility] [address] [place] [address]Dr. Marysol Peace ALT [Catalytic activity/Vol] 29 U/L Normal 14-59 [facility] Comment on above: Performed By: #### L IPID, CMP, TSH ####[facility] [address] [place] [address]Dr. Marysol Peace Anion gap [Moles/Vol] 12.2 mmol/L Normal [facility] Comment on above: Performed By: #### L IPID, CMP, TSH ####[facility] [address] [place] [address]Dr. Marysol Peace AST [Catalytic activity/Vol] 20 U/L Normal 15-37 [facility] Comment on above: Performed By: #### L IPID, CMP, TSH ####[facility] [address] [place] [address]Dr. Marysol Peace Bilirubin [Mass/Vol] 0.5 mg/dL Normal 0.2-1.0 [facility] Comment on above: Performed By: #### L IPID, CMP, TSH ####[facility] [address] [place] [address]Dr. Marysol Peace Calcium [Mass/Vol] 8.9 mg/dL Normal 8.5-10.1 [facility] Comment on above: Performed By: #### L IPID, CMP, TSH ####[facility] [address] [place], [place] [address]Dr. Marysol Peace Chloride [Moles/Vol] 102 mmol/L Normal 98-107 [facility] Comment on above: Performed By: #### L IPID, CMP, TSH ####[facility] [address] [place], [place] [address]Dr. Marysol Peace CO2 [Moles/Vol] 25.6 mmol/L Normal 21.0-32.0 [facility] Comment on above: Performed By: #### L IPID, CMP, TSH ####[facility] [address] [place], [place] [address]Dr. Marysol Peace Creatinine [Mass/Vol] 0.61 mg/dL Normal 0.55-1.02 [facility] Comment on above: Performed By: #### L IPID, CMP, TSH ####[facility] [address] [place] [address]Dr. Marysol Peace EGFR-AF PALAUAN >60 Normal >=60 [facility] Comment on above: Performed By: #### L IPID, CMP, TSH ####[facility] [address] [place], [place] [address]Dr. Marysol Peace EGFR-NON AF PALAUAN >60 Normal >=60 [facility] Comment on above: Performed By: #### L IPID, CMP, TSH ####[facility] [address]yxi[address] [place], [place] [address]Dr. Marysol Peace Globulin (S) [Mass/Vol] 3.4 g/dL Normal [facility] Comment on above: Performed By: #### L IPID, CMP, TSH ####[facility] [address] [place] [address]Dr. Marysol Peace Glucose [Mass/Vol] 149 mg/dL Critically high 74-106 [facility] Comment on above: Performed By: #### L IPID, CMP, TSH ####[facility] [address] [place] [address]Dr. Marysol Peace Potassium [Moles/Vol] 3.8 mmol/L Normal 3.5-5.1 [facility] Comment on above: Performed By: #### L IPID, CMP, TSH ####[facility] [address] [place] [address]Dr. Marysol Peace Protein [Mass/Vol] 7.3 g/dL Normal 6.4-8.2 [facility] Comment on above: Performed By: #### L IPID, CMP, TSH ####[facility] [address] [place] [address]Dr. Marysol Peace Sodium [Moles/Vol] 136 mmol/L Normal 136-145 [facility] Comment on above: Performed By: #### L IPID, CMP, TSH ####[facility] [address] [place] [address]Dr. Marysol Peace Urea nitrogen [Mass/Vol] 26.0 mg/dL Critically high 7.0-18.0 [facility] Comment on above: Performed By: #### L IPID, CMP, TSH ####[facility] [address] [place] [address]Dr. Marysol Peace Urea nitrogen/Creatinine [Mass ratio] 42.6 mg/mg Normal [facility] Comment on above: Performed By: #### L IPID, CMP, TSH ####[facility] [address] [place] [address]Dr. Piedadbre Peace TSHon 09-27-2022 TSH 1.298 uIU/mL Normal 0.358-3.740 [facility] Comment on above: Performed By: #### L IPID, CMP, TSH ####[facility] [address] [place], [place] [address]UoDr. Marysol Peace CAITLYN - TSHon 05-02-2022 TSH 2.031 uIU/mL Normal 0.358-3.740 [facility] Comment on above: Performed By: #### D ATTSH #### [facility] [address] [place] [address] [address] Marysol Peace TSH RANGE SEE BELOW Normal [facility] Comment on above: Result Comment: <0.3 4 UIU/ml HYPERTHYROID 0.34-5.60 UIU/ml EUTHYROID >5.60 UIU/ml HYPOTHYROID Performed By: #### D ATTSH #### [facility] [address] [place] [address] [address] Marysol Peace GLYCOHEMOGLOBIN A1Con 2021 ADA RECOMMENDATION SEE BELOW Normal [facility] Comment on above: Result Comment: ADA RECOMMENDED LIMIT 4.0 - 6.0 ADA THERAPEUTIC TARGET < 7.0 ACTION SUGGESTED > 7.0 Performed By: #### D ATA1C #### [facility] [address] [address] [address] Marysol Peace Glucose [Mass/Vol] 151 mg/dL Normal [facility] Comment on above: Performed By: #### D ATA1C #### [facility] [address] [place] [address] [address] Marysol Peace HbA1c (Bld) [Mass fraction] 6.9 % Critically high 4.5-6.2 [facility] Comment on above: Performed By: #### D ATA1C #### [facility] [address] [place] [address] [address] Marysol Peace XR KNEE RT 4V [...] JOSH COOK Date: 2022-02-26 16:36 Normal [facility] XR DEXA BONE DENSITYon 01-18 XR DEXA [...] ANDREW MORRIS Date: 2022-01-18 16:32 Normal [facility] CBC AUTO DIFFon 12-06-2021 BASO # 0.0 103/ul Normal 0.0-0.1 [facility] Comment on above: Performed By: #### C BC ####[facility] [address] [place], [place] [address]Dr. Yilan Peace Basophils/100 WBC (Bld) 0.4 % Normal 0.2-2.0 [facility] Comment on above: Performed By: #### C BC ####[facility] [address] [place] [address]Dr. Yilan Peace EO # 0.2 103/ul Normal 0.0-0.7 [facility] Comment on above: Performed By: #### C BC ####[facility] [address] [place] [address]Dr. Yilan Peace Eosinophils/100 WBC (Bld) 2.4 % Normal 0.9-7.0 [facility] Comment on above: Performed By: #### C BC ####[facility] [address] [place] [address]Dr. Marysol Peace Erythrocyte distribution width (RBC) [Ratio] 12.5 % Normal 11.0-15.0 [facility] Comment on above: Performed By: #### C BC ####[facility] [address] [place] [address]Dr. Marysol Pecae Hematocrit (Bld) [Volume fraction] 45.6 % Normal 36.0-48.0 [facility] Comment on above: Performed By: #### C BC ####[facility] [address] [place], [place] [address]Dr. Marysol Peace Hemoglobin (Bld) [Mass/Vol] 15.3 g/dL Normal 12.0-16.0 [facility] Comment on above: Performed By: #### C BC ####[facility] [address] [place], [place] [address]Dr. Marysol Peace IG # 0.03 10e3/ul Normal 0.00-0.03 [facility] Comment on above: Performed By: #### C BC ####[facility] [address] [place], [place] [address]Dr. Marysol Peace IG % 0.4 % Normal 0.0-0.5 [facility] Comment on above: Performed By: #### C BC ####[facility] [address] [place], [place] [address]Dr. Marysol Peace LYMPH # 1.4 103/ul Normal 1.2-3.8 [facility] Comment on above: Performed By: #### C BC ####[facility] [address]news[address] [place], [place] [address]Dr. Marysol Peace Lymphocytes/100 WBC (Bld) 19.9 % Critically low 20.5-60.0 [facility] Comment on above: Performed By: #### C BC ####[facility] [address] [place], [place] [address]Dr. Marysol Peace MANUAL DIFF REQ NO Normal [facility] Comment on above: Performed By: #### C BC ####[facility] [address] [place] [address]k. Marysol Peace MCH (RBC) [Entitic mass] 29.5 pg Normal 26.7-34.0 [facility] Comment on above: Performed By: #### C BC ####[facility] [address] [place] [address]Dr. Marysol Peace MCHC (RBC) [Mass/Vol] 33.6 g/dL Normal 29.9-35.2 [facility] Comment on above: Performed By: #### C BC ####[facility] [address] [place], [place] [address]Dr. Marysol Peace MCV (RBC) [Entitic vol] 87.9 fL Normal 81.0-99.0 [facility] Comment on above: Performed By: #### C BC ####[facility] [address] [place], [place] [address]Dr. Marysol Kobi MONO # 0.8 103/ul Normal 0.3-0.8 [facility] Comment on above: Performed By: #### C BC ####[facility] N[address]alspmc[address] [place], [place] [address]Dr. Marysol Kobi Monocytes/100 WBC (Bld) 11.8 % Normal 1.7-12.0 [facility] Comment on above: Performed By: #### C BC ####[facility] [address] [place], [place] [address]Dr. Marysol Peace NEUT # 4.4 103/ul Normal 1.4-6.5 [facility] Comment on above: Performed By: #### C BC ####[facility] [address] [place], [place] [address]Dr. Marysol Kobi Neutrophils/100 WBC (Bld) 65.1 % Normal 43.0-75.0 [facility] Comment on above: Performed By: #### C BC ####[facility] [address] [place], [place] [address]Dr. Marysol Kobi Platelet mean volume (Bld) [Entitic vol] 10.9 fL Normal 9.5-13.5 [facility] Comment on above: Performed By: #### C BC ####[facility] [address] [place], [place] [address]Ok. Marysol Peace PLT 187 103/ul Normal 150-450 [facility] Comment on above: Performed By: #### C BC ####[facility] [address] [place], [place] [address]Yx. Marysol Peace RBC 5.19 106/ul Normal 4.20-5.40 [facility] Comment on above: Performed By: #### C BC ####[facility] [address] [place], [place] [address]Em. Marysol Peace WBC 6.8 103/ul Normal 4.0-11.0 [facility] Comment on above: Performed By: #### C BC ####[facility] [address] [place], [place] [address]. Marysol [address] CHEST WO CONon 12-06-2021 [...] JULIAN SLAUGHTER Date: 2021-12-06 11:39 Normal [facility] GLYCOHEMOGLOBIN A1Con 2021 ADA RECOMMENDATION SEE BELOW Normal [facility] Comment on above: Result Comment: ADA RECOMMENDED LIMIT 4.0 - 6.0 ADA THERAPEUTIC TARGET < 7.0 ACTION SUGGESTED > 7.0 Performed By: #### A 1C ####[facility] [address] [place], [place] [address]ZuDr. Marysol Peace Glucose [Mass/Vol] 137 mg/dL Normal [facility] Comment on above: Performed By: #### A 1C ####[facility] [address] [place], [place] [address]NyLyubov Peace HbA1c (Bld) [Mass fraction] 6.4 % Critically high 4.5-6.2 [facility] Comment on above: Performed By: #### A 1C ####[facility] [address] [place] [id number] Peace LIPID PROFILEon 12-06-2021 CHOL-HDL RATIO NORM SEE BELOW Normal [facility] Comment on above: Result Comment: 3.3 - 4.4 LOW RISK 4.4 - 7.1 AVERAGE RISK 7.1 - 11.0 MODERATE RISK >11.0 HIGH RISK Performed By: #### C MP, TSH, LIPID #### [facility] [address] [address] [address] Marysol Peace Cholesterol [Mass/Vol] 154 mg/dL Normal <=200 [facility] Comment on above: Performed By: #### C MP, TSH, LIPID #### [facility] [address] [address] [address] Marysol Peace Cholesterol in HDL [Mass/Vol] 33 mg/dL Critically low 40-60 [facility] Comment on above: Performed By: #### C MP, TSH, LIPID #### [facility] [address] [address] [address] Marysol Peace Cholesterol in LDL [Mass/Vol] 77.8 mg/dL Normal [facility] Comment on above: Performed By: #### C MP, TSH, LIPID #### [facility] [address] [address] [address] Marysol Peace Cholesterol.total/C holesterol in HDL [Mass ratio] 4.7 {ratio} Normal [facility] Comment on above: Performed By: #### C MP, TSH, LIPID #### [facility] [address] [address] [address] Marysol Peace HDL NORMAL > or = 60 mg/dl - LO W CARDIOVASCULAR RISK <40 mg/dl - HIGH CARDIOVASCULAR RISK Normal [facility] Comment on above: Performed By: #### C MP, TSH, LIPID #### [facility] [address] [address] [address] Marysol Peace LDL CALC NORMAL SEE BELOW Normal [facility] Comment on above: Result Comment: <100 mg/dl OPTIMAL 100 - 129 mg/dl NEAR OR ABOVE OPTIMAL 130 - 159 mg/dl BORDERLINE HIGH 160 - 189 mg/dl HIGH >190 mg/dl VERY HIGH Performed By: #### C MP, TSH, LIPID #### [facility] [address] [address] [address] Marysol Peace Triglyceride [Mass/Vol] 216 mg/dL Critically high <=150 [facility] Comment on above: Performed By: #### C MP, TSH, LIPID #### [facility] [address] [address] [address] Marysol Peace VLDL CALC 43.2 mg/dL Normal [facility] Comment on above: Performed By: #### C MP, TSH, LIPID #### [facility] [address] [address] [address] Marysol Peace MG MAMM DIAGNOSTIC 3D OMKAR CA Don 12-06-2021 MG MAMM DIAGNOSTIC 3D OMKAR CAD Patient: RENUKA CACERES Exam Date: 12/06/2021 : 1960 Gender:F Ordering : DR SINGH FOWLER D.O. Admission #: [id number] Family : Order #: [id number] CLICK HERE TO VIEW EXAM RADIOLOGY REPORT [...] colon/kidney cancer at age 38. LOCATION: [facility] BREAST COMPOSITION: Heterogeneously dense,which may obscure small [...] M.D. on 12/06/2021 at 10:49 Normal [facility] PROF 14(COMP METB)on 022 Albumin [Mass/Vol] 4.0 g/dL Normal 3.4-5.0 [facility] Comment on above: Performed By: #### C MP, TSH, LIPID #### [facility] [address] [place] [address] Dr. Marysol Peace Albumin/Globulin [Mass ratio] 1.1 {ratio} Normal [facility] Comment on above: Performed By: #### C MP, TSH, LIPID #### [facility] [address] [address] [address] Marysol Peace ALP [Catalytic activity/Vol] 88 U/L Normal 46-116 [facility] Comment on above: Performed By: #### C MP, TSH, LIPID #### [facility] [address] [address] [address] Marysol Peace ALT [Catalytic activity/Vol] 36 U/L Normal 14-59 [facility] Comment on above: Performed By: #### C MP, TSH, LIPID #### [facility] [address] [address] [address] Marysol Peace Anion gap [Moles/Vol] 11.4 mmol/L Normal [facility] Comment on above: Performed By: #### C MP, TSH, LIPID #### [facility] [address] [place] [address] Dr. Marysol Peace AST [Catalytic activity/Vol] 18 U/L Normal 15-37 [facility] Comment on above: Performed By: #### C MP, TSH, LIPID #### [facility] [address] [place] [address] Dr. Marysol Peace Bilirubin [Mass/Vol] 0.5 mg/dL Normal 0.2-1.0 [facility] Comment on above: Performed By: #### C MP, TSH, LIPID #### [facility] [address] [place] [address] Dr. Marysol Peace Calcium [Mass/Vol] 9.5 mg/dL Normal 8.5-10.1 [facility] Comment on above: Performed By: #### C MP, TSH, LIPID #### [facility] [address] [place] [address] Dr. Marysol Peace Chloride [Moles/Vol] 102 mmol/L Normal 98-107 [facility] Comment on above: Performed By: #### C MP, TSH, LIPID #### [facility] [address] [place] [address] Dr. Marysol Peace CO2 [Moles/Vol] 31.7 mmol/L Normal 21.0-32.0 [facility] Comment on above: Performed By: #### C MP, TSH, LIPID #### [facility] [address] [place] [address] Dr. Marysol Peace Creatinine [Mass/Vol] 0.63 mg/dL Normal 0.55-1.02 [facility] Comment on above: Performed By: #### C MP, TSH, LIPID #### [facility] [address] [place] [address] Dr. Marysol Peace EGFR-AF PALAUAN >60 Normal >=60 [facility] Comment on above: Performed By: #### C MP, TSH, LIPID #### [facility] [address] [place] [address] Dr. Marysol Peace EGFR-NON AF PALAUAN >60 Normal >=60 [facility] Comment on above: Performed By: #### C MP, TSH, LIPID #### [facility] [address] [address] [address] Marysol Peace Globulin (S) [Mass/Vol] 3.7 g/dL Normal [facility] Comment on above: Performed By: #### C MP, TSH, LIPID #### [facility] [address] [address] [address] Marysol Peace Glucose [Mass/Vol] 129 mg/dL Critically high 74-106 T [facility] Comment on above: Performed By: #### C MP, TSH, LIPID #### [facility] [address] [address] [address] Marysol Peace Potassium [Moles/Vol] 5.1 mmol/L Normal 3.5-5.1 [facility] Comment on above: Performed By: #### C MP, TSH, LIPID #### [facility] [address] [place] [address] Dr. Marysol Peace Protein [Mass/Vol] 7.7 g/dL Normal 6.4-8.2 [facility] Comment on above: Performed By: #### C MP, TSH, LIPID #### [facility] [address] [place] [address] Dr. Marysol Peace Sodium [Moles/Vol] 140 mmol/L Normal 136-145 [facility] Comment on above: Performed By: #### C MP, TSH, LIPID #### [facility] [address] [place] [address] Dr. Marysol Peace Urea nitrogen [Mass/Vol] 20.0 mg/dL Critically high 7.0-18.0 [facility] Comment on above: Performed By: #### C MP, TSH, LIPID #### [facility] [address] [place] [address] Dr. Marysol Peace Urea nitrogen/Creatinine [Mass ratio] 31.7 mg/mg Normal [facility] Comment on above: Performed By: #### C MP, TSH, LIPID #### [facility] [address] [place], [place] [address] Dr. Marysol Peace TSHon 12-06-2021 TSH 1.978 uIU/mL Normal 0.358-3.740 [facility] Comment on above: Performed By: #### C MP, TSH, LIPID #### [facility] [address] [place], [place] [address] Dr. Marysol Peace TSH RANGE SEE BELOW Normal [facility] Comment on above: Result Comment: <0.3 4 UIU/ml HYPERTHYROID 0.34-5.60 UIU/ml EUTHYROID >5.60 UIU/ml HYPOTHYROID Performed By: #### C MP, TSH, LIPID #### [facility] [address] [address] [address] Marysol Peace Vital Signs Date Time Vital Sign Value Performing Clinician Facility 07-13-2023 12:15-0500 Body height 170.18 cm Singh Ball Other [facility] Other 07-13-2023 12:15-0500 Diastolic blood pressure 80 mm[Hg] Singh Ball Other [facility] Other 07-13-2023 12:15-0500 Systolic blood pressure 135 mm[Hg] Singh Ball Other [facility] Other 07-07-2023 08:30-0500 Body height 170.18 cm Singh Ball Other [facility] Other 07-07-2023 08:30-0500 Body mass index (BMI) [Ratio] 34.83 kg/m2 Singh Ball Other [facility] Other 07-07-2023 08:30-0500 Body weight 100.88 kg Singh Ball Other [facility] Other 07-07-2023 08:30-0500 Diastolic blood pressure 89 mm[Hg] Singh Ball Other [facility] Other 07-07-2023 08:30-0500 Respiratory rate 16 /min Singh Ball Other [facility] Other 07-07-2023 08:30-0500 Systolic blood pressure 152 mm[Hg] Singh Ball Other [facility] Other 06-29-2023 09:36-0500 Body height 162.56 cm DO Singh Ball Work Phone: [facility] 06-29-2023 09:36-0500 Body temperature 98.3 [degF] DO Singh Ball Work Phone: [facility] 06-29-2023 09:36-0500 Body weight 91.85 kg DO Singh Ball Work Phone: [facility] 06-29-2023 09:36-0500 Diastolic blood pressure 80 mm[Hg] DO Singh Ball Work Phone: [facility] 06-29-2023 09:36-0500 Heart rate 83 /min DO Singh Ball Work Phone: [facility] 06-29-2023 09:36-0500 Respiratory rate 20 /min DO Singh Ball Work Phone: [facility] 06-29-2023 09:36-0500 SaO2% (BldA) [Mass fraction] 98 % DO Singh Ball Work Phone: [facility] 06-29-2023 09:36-0500 Systolic blood pressure 165 mm[Hg] DO Singh Ball Work Phone: [facility] 03-06-2023 08:30-0400 Body height 170.18 cm Singh Ball Other [facility] Other 03-06-2023 08:30-0400 Body mass index (BMI) [Ratio] 31.01 kg/m2 Singh Ball Other [facility] Other 03-06-2023 08:30-0400 Body weight 89.81 kg Singh Ball Other [facility] [employer] Other 03-06-2023 08:30-0400 Diastolic blood pressure 80 mm[Hg] Singh Ball Other [facility] [employer] Other 03-06-2023 08:30-0400 Respiratory rate 12 /min Singh Ball Other [facility] [employer] [facility] Other 03-06-2023 08:30-0400 Systolic blood pressure 152 mm[Hg] Singh Ball Other [facility] [employer] Other 12-28-2022 09:30-0400 Body temperature 97.9 [degF] DO Singh Ball Work Phone: [facility] 12-28-2022 09:30-0400 Body weight 90.26 kg DO Singh Ball Work Phone: [facility] 12-28-2022 09:30-0400 Diastolic blood pressure 88 mm[Hg] DO Singh Ball Work Phone: [facility] 12-28-2022 09:30-0400 Heart rate 79 /min DO Singh Ball Work Phone: [facility] 12-28-2022 09:30-0400 Respiratory rate 16 /min DO Singh Ball Work Phone: [facility] 12-28-2022 09:30-0400 SaO2% (BldA) [Mass fraction] 98 % DO Singh Ball Work Phone: [facility] 12-28-2022 09:30-0400 Systolic blood pressure 153 mm[Hg] DO Singh Ball Work Phone: [facility] 11-02-2022 10:30-0400 Body height 170.18 cm Singh Ball Other [facility] Other 11-02-2022 10:30-0400 Body mass index (BMI) [Ratio] 31.38 kg/m2 Singh Ball Other [facility] Other 11-02-2022 10:30-0400 Body weight 90.9 kg Singh Ball Other [facility] Other 11-02-2022 10:30-0400 Diastolic blood pressure 80 mm[Hg] Singh Ball Other [facility] Other 11-02-2022 10:30-0400 Respiratory rate 12 /min Singh Ball Other [facility] Other 11-02-2022 10:30-0400 Systolic blood pressure 136 mm[Hg] Singh Ball Other [facility] Other 11-02-2022 09:30-0400 Body height 170.18 cm Singh Ball Other [facility] Other 11-02-2022 09:30-0400 Body mass index (BMI) [Ratio] 31.38 kg/m2 Singh Ball Other [facility] Other 11-02-2022 09:30-0400 Body weight 90.9 kg Singh Ball Other [facility] Other 11-02-2022 09:30-0400 Diastolic blood pressure 80 mm[Hg] Singh Ball Other [facility] Other 11-02-2022 09:30-0400 Respiratory rate 12 /min Singh Ball Other [facility] Other 11-02-2022 09:30-0400 Systolic blood pressure 136 mm[Hg] Singh Ball Other [facility] Other 06-29-2022 08:22-0500 Body height 162.56 cm DO Singh Ball Work Phone: [facility] 06-29-2022 08:22-0500 Body weight 93.7 kg DO Singh Ball Work Phone: [facility] 06-29-2022 08:22-0500 Diastolic blood pressure 87 mm[Hg] DO Singh Ball Work Phone: [facility] 06-29-2022 08:22-0500 Heart rate 87 /min DO Singh Ball Work Phone: [facility] 06-29-2022 08:22-0500 Respiratory rate 20 /min DO Singh Ball Work Phone: [facility] 06-29-2022 08:22-0500 SaO2% (BldA) [Mass fraction] 97 % DO Singh Ball Work Phone: [facility] 06-29-2022 08:22-0500 Systolic blood pressure 157 mm[Hg] DO Singh Ball Work Phone: [facility] 04-13-2022 08:05-0400 Body weight 91.94 kg DO Singh Ball Work Phone: [facility] 04-13-2022 08:05-0400 Diastolic blood pressure 83 mm[Hg] DO Singh Ball Work Phone: [facility] 04-13-2022 08:05-0400 Heart rate 98 /min DO Singh Ball Work Phone: [facility] 04-13-2022 08:05-0400 Respiratory rate 20 /min DO Singh Ball Work Phone: [facility] 04-13-2022 08:05-0400 SaO2% (BldA) [Mass fraction] 96 % DO Singh Ball Work Phone: [facility] 04-13-2022 08:05-0400 Systolic blood pressure 147 mm[Hg] DO Singh Ball Work Phone: [facility] 01-13-2022 08:26-0400 Body temperature 97.8 [degF] DO Singh Ball Work Phone: [facility] 01-13-2022 08:26-0400 Body weight 91.62 kg DO Singh Ball Work Phone: [facility] 01-13-2022 08:26-0400 Diastolic blood pressure 79 mm[Hg] DO Singh Ball Work Phone: [facility] 01-13-2022 08:26-0400 Heart rate 82 /min DO Singh Ball Work Phone: [facility] 01-13-2022 08:26-0400 Respiratory rate 16 /min DO Singh Ball Work Phone: [facility] 01-13-2022 08:26-0400 SaO2% (BldA) [Mass fraction] 96 % DO Singh Ball Work Phone: [facility] 01-13-2022 08:26-0400 Systolic blood pressure 157 mm[Hg] DO Singh Ball Work Phone: [facility] 10-20-2021 08:57-0400 Body height 162.56 cm MD Thiago Durbin Work Phone: [facility] 10-20-2021 08:57-0400 Body temperature 98 [degF] MD Thiago Durbin Work Phone: [facility] 10-20-2021 08:57-0400 Body weight 95.11 kg MD Thiago Durbin Work Phone: [facility] 10-20-2021 08:57-0400 Diastolic blood pressure 78 mm[Hg] MD Thiago Durbin Work Phone: [facility] 10-20-2021 08:57-0400 Heart rate 87 /min MD Thiago Durbin Work Phone: [facility] 10-20-2021 08:57-0400 Respiratory rate 20 /min MD Thiago Durbin Work Phone: [facility] 10-20-2021 08:57-0400 SaO2% (BldA) [Mass fraction] 96 % MD Thiago Durbin Work Phone: [facility] 10-20-2021 08:57-0400 Systolic blood pressure 160 mm[Hg] MD Thiago Durbin Work Phone: [facility] Encounters Encounter Date Encounter Type Care Provider Facility Start: 07-13-2023 End: 07-13-2023 ambulatory Singh Ball Other [facility] Other Start: 07-13-2023 Office outpatient vi sit 15 minutes Singh Ball [facility] Start: 07-07-2023 End: 07-07-2023 ambulatory Singh Ball Other [facility] Other Start: 07-07-2023 Office outpatient vi sit 25 minutes Singh Ball [facility] Start: 06-29-2023 ambulatory Chiara Shun Facility:[facility] Start: 06-29-2023 End: 06-29-2023 ambulatory DO Singh Ball Work Phone: [facility] Work Phone: Start: 06-29-2023 End: 06-29-2023 Registered Recurring DO Singh Ball Work Phone: [facility] Work Phone: Start: 06-06-2023 End: 06-06-2023 ambulatory Singh Ball Other [facility] Other Start: 06-06-2023 Telephone encounter Singh Ball [facility] Start: 06-04-2023 End: 06-04-2023 ambulatory Singh Ball Other [facility] Other Start: 06-04-2023 Telephone encounter Singh Ball [facility] Start: 03-14-2023 End: 03-14-2023 ambulatory Singh Fowler Other [facility] Other Start: 03-14-2023 Telephone encounter [facility] Start: 03-06-2023 End: 03-06-2023 ambulatory Singh Fowler Other [facility] Other Start: 03-06-2023 Patient encounter procedure Singh Fowler [facility] Start: 03-06-2023 Telephone encounter [facility] Start: 01-13-2023 End: 01-13-2023 ambulatory Singh Fowler Other [facility] Other Start: 01-13-2023 Telephone encounter [facility] Start: 01-12-2023 End: 01-12-2023 ambulatory Singh Keo Other [facility] Other Start: 01-12-2023 Telephone encounter [facility] Start: 01-11-2023 End: 01-12-2023 ambulatory Salazar MUNIZ Facility:[id number] Start: 12-28-2022 End: 12-28-2022 ambulatory DO Singh Fowler Work Phone: [facility] Work Phone: Start: 12-28-2022 End: 12-28-2022 Registered Recurring DO Singh Fowler Work Phone: [facility] Work Phone: Start: 12-02-2022 End: 12-03-2022 ambulatory Salazar MUNIZ Facility:[facility] Start: 11-28-2022 End: 11-29-[address] SINGH FOWLER Facility:[facility] Start: 11-02-2022 End: 11-02-2022 ambulatory Singh Fowler Other [facility] Other Start: 11-02-2022 Encounter for genera l adult medical examination without abnormal findings Singh Fowler [facility] Start: 11-02-2022 Periodic preventive med est patient 40-64yrs Singh Fowler [facility] Start: 10-14-2022 End: 10-14-2022 ambulatory Singh Fowler Other [facility] Other Start: 10-14-2022 Telephone encounter Singh KRISHNAN [facility] Start: 10-03-2022 Encounter for genera l adult medical examination without abnormal findings DR SINGH FOWLER [facility] Start: 09-28-2022 End: 09-28-2022 ambulatory Singh Fowler Other [facility] Other Start: 09-28-2022 Telephone encounter Singh KRISHNAN [facility] Start: 09-27-2022 End: 09-28-2022 Encounter for general adult medical examination without abnormal findings DR SINGH FOWLER Facility: Start: 09-27-2022 End: 09-28-[address] SINGH FOWLER [facility] Other Start: 09-27-2022 Telephone encounter Sydney Bray [facility] Start: 09-19-2022 End: 09-19-2022 ambulatory Singh Fowler Other [facility] Other Start: 09-19-2022 Encounter for genera l adult medical examination without abnormal findings Singh Fowler [facility] Start: 09-19-2022 Telephone encounter Singh KRISHNAN [facility] Start: 09-16-2022 End: 09-16-2022 ambulatory Singh Fowler Other [facility] Other Start: 09-16-2022 Office outpatient vi sit 15 minutes Singh Fowler [facility] Start: 06-29-2022 End: 06-29-2022 ambulatory DO Singh Fowler Work Phone: [facility] Work Phone: Start: 06-29-2022 End: 06-29-2022 Registered Recurring DO Singh Fowler Work Phone: [facility] Start: 05-19-2022 End: 05-20-[address] SINGH FOWLER Facility:[facility] Start: 05-02-2022 End: 05-03-[address] SINGH FOWLER Facility:[facility] Start: 04-13-2022 End: 04-13-2022 ambulatory DO Singh Fowler Work Phone: [facility] Work Phone: Start: 04-13-2022 End: 04-13-2022 Registered Recurring DO [facility] Start: 03-17-2022 End: 03-17-2022 ambulatory Vee Wadsworth Other [facility] Other Start: 03-17-2022 Office outpatient ne w 30 minutes Vee Wadsworth [facility] Start: 03-17-2022 End: 03-17-2022 Patient encounter procedure DO Singh Fowler Work Phone: [facility] Start: 02-26-2022 End: 02-26-2022 ambulatory HARSHAD CASTELLON . Facility:[facility] Start: 02-07-2022 ambulatory Salazar MUNIZ Facility:[facility] Start: 01-18-2022 End: 01-19-[address] ANDREW MORRIS Facility:[facility] Start: 01-13-2022 End: 01-13-2022 Registered Recurring DO Singh [facility] Start: 01-02-2022 End: 01-02-[address] ANDREW MORRIS Facility:[facility] Start: 12-06-2021 End: 12-07-[address] SINGH FOWLER Facility:[facility] Start: 10-20-2021 End: 10-20-2021 Registered Recurring MD Thiago Durbin [facility] Start: 03-08-2021 End: 06-01-2021 Pre-admission assessment Daniel Lopes [facility] Procedures Date Procedure Procedure Detail Performing Clinician [...] Date Care Activity Detail Author Start: 10-20-2021 [facility] Start: 04-06-2021 [facility] Computed tomography for radiotherapy planning [facility] DXA Skeletal system. axial Views for bone density [facility] DXA Skeletal system. axial Views for bone density [facility] MG Breast - bilateral Diagnostic [facility] MG Breast - bilateral Diagnostic [facility] Immunizations Immunization Date Immunization Notes Care Provider Fa cility 08-06-2020 COVID-19 mRNA-1273 (Moderna) MD Thiago Durbin Work Phone: [facility] 06-16-2020 COVID-19 mRNA-1273 (Moderna) MD Thiago Durbin Work Phone: [facility] 04-24-2013 tetanus and diphther ia toxoids, adsorbed, preservative free, for adult use (5 Lf of tetanus toxoid and 2 Lf of diphtheria toxoid) Singh Fowler Other [facility] Other Payers Date Payer Category Payer [facility] [id number] 2021 Self-pay [id number] 2019 Unknown [id number] Self-pay [id number] Unknown [id number] 2.16.84 0.1.941675.3.579.2.593 1960 Unknown [id number] 2.16.84 0.1.724645.3.579.2.593 1960 Unknown [id number] 2.16.84 0.1.117584.3.579.2.593 1960 Unknown [id number] 2.16.84 0.1.699388.3.579.2.593 1960 Unknown [id number] 2.16.84 0.1.875042.3.579.2.593 1960 Unknown [id number] 2.16.84 0.1.355615.3.579.2.593 1960 Unknown [id number] 2.16.84 0.1.411707.3.579.2.593 1960 Unknown [id number] 2.16.84 0.1.883174.3.579.2.593 1960 Unknown [id number] 2.16.8 40.1.665898.3.579.2.727 1960 Unknown [id number] 2.16.8 40.1.455421.3.579.2.727 1960 Unknown [id number] 2.16.8 40.1.165511.3.579.2.727 Unknown [id number] 2.16.84 0.1.440308.3.579.2.593 Unknown [id number] 2.16.84 0.1.853568.3.579.2.593 Unknown [id number] 2.16.8 40.1.606239.3.579.2.531 Social History Date Type Detail Facility Start: 03-02-2021 Tobacco smoking status Never [facility] Start: 10-20-2021 End: 06-29-2023 Tobacco smoking status Never smoked tobacco (finding) [facility] Sex Assigned At Female [facility] Start: 1960 Sex Assigned At Female [facility] Clinical Notes 03-16-2021 to 07-13-2023 Note Date [...] exercise to achieve/maint ain a normal BMI. [facility] Other 12-22-2023 Evaluation note* Encounter Date Diagnosis [...] index [BMI] 31.0-31.9, adult (ICD-10 - Z68.31) [facility] Other 11-21-2023 Evaluation note* Encounter Date Diagnosis Assessment Notes Treatment Notes Treatment Clinical Notes May, Primary hypertension (ICD-10 - I10) [facility] Other 11-19-2023 Evaluation note* Encounter Date Diagnosis Assessment Notes Treatment Notes Treatment Clinical Notes May, Type 2 diabetes mellitus with hyperglycemia, without long-term current use of insulin (ICD-10 - E11.65) May, Primary hypertension (ICD-10 - I10) [facility] Other 08-21-2023 Evaluation note* Encounter Date Diagnosis [...] index [BMI] 31.0-31.9, adult (ICD-10 - Z68.31) [facility] Other 06-30-2023 Evaluation note* Encounter Date Diagnosis Assessment Notes Treatment Notes Treatment Clinical Notes Dec, Essential hypertension (ICD-10 - I10) [facility] Other 06-14-2023 Progress note Author Chiara Hoffmann [facility] December 28, 2022 9:59am Note Date/Time December 28, 2022 9:34 am [facility] [place] [address] Hem/Onc Follow Up Note - OP Signed Patient: Renuka Caceres MR#: [id number] : 1960 Acct:[id number] Age/Sex: 62 / F Type: REG RCR [...] was refilled today. Her mammogramwas performed at [facility] on 11/28/2022 showed heterogeneously dense breasts but [...] regularly. Last DEXA scan was normal at [place] 01/18/2022 will be due in 1 year. [...] on letrozole therapy for T2 N0 M0 ER/LA positive breast cancer, status postlumpectomy in February [...] on self-exam. We reviewed her mammogram from [facility] performed 10/06/2021 which returned with heterogeneously dense breasts but no significant suspicious abnormalities and postsurgical changes in the right upper inner quadrant. She has not had baseline DEXA scan and we ordered this today. Advised to start calcium and vitamin D until DEXA findings which she will be contacted with afterreview. Next follow-up with nurse practitioner in 3 months, 6 months with nd. Oumar complexity visit over 25 minutes for [...] this month and has these done at [place]. Eliazar get this record once it's completed. [...] of 6 lymph nodes positive. ER and LA was positive, H ER 2 -. [employer] genetic testing was negative for BRCA 1 and 2. Oncotype DX showed low risk disease. She was started on radiation March 2021. Her family doctor is Dr. Juan Fowler and she was operated on by Dr. Salazar Kimble. TEJON: Now 62-year-old post-menopausal female- had menopause at [...] confirmedstage T2 N0 M0 invasive lobular carcinoma, Edmond grade 2 with associated ductal carcinoma in [...] was started on Arimidex May 2021 (at [place] [facility]). Did not tolerated/t hot flashes, so switched [...] labs for review - Impressions Imaging from [facility] reviewed: 11/28/2022: 3D diagnostic mammogram Breast composition: [...] of May [address] Lopes at [place]. 07/20/2021: Stopped anastrozole due to severe hot [...] have her mammogram done this month at [place] and will have results sent to us. [...] for coordination of care (as documented) and srgb-fx-rgbs counseling of patient and/or family. Dictated By: Chiara Hoffmann MD DD/ Signed By: <Electronically signed by MD Chiara Hoffmann> 12/28/22 0959 [facility] Work Phone: 1(178) 685-766305-19-2023 NoteChief Complaint consultation for screening colonoscopy HPI [...] Primary malignant neoplasm of (more content not included)...[facility]:Result Comment: Electronically Signed By: Salazar MUNIZ MD.br\Date and Time Signed: 12/02/22 14:59 [id number] Reason for referral (narrative)* Reason 12/02/22 Referral for screening colonoscopy in asymptomatic high risk patient. Diagnosis 1 Encounter for screen ing colonoscopy (Z12.11) Referral Organization [facility] Referring Provider First Name Singh Referring Provider Last Name Keo Referring Provider Specialty Internal Me dicine Referred Organization [facility] Referred Provider Salazar Muniz Referred Address [address], [place],[address] Referred Provider Specialty Surgery Referral Priority Routine Referral Appointment Date 2022-12-02 General Notes Kira Tran 12:38:54 PM >received today Kira Tran 11/03/2022 12:41:54 PM >notes locked, attachments made, referral faxed Kira Tran 11/10/2022 11:14:17 AM >faxed first attempt letter Kira Tran 11/14/2022 04:13:52 PM >received fax with appt date Kira Tran 12/08/2022 06:10:37 AM >notes in chart and reviewed. closing referral Clinical Notes [id number] [facility] Other 04-19-2023 Evaluation note* Encounter Date Diagnosis [...] to family hx of CRC. Recommend colonoscopy. [facility] Other 03-06-2023 Evaluation note* Encounter Date Diagnosis Assessment Notes Treatment Notes Treatment Clinical Notes Sep, Wellness examination (ICD-10 - Z00.00) [facility] Other 03-03-2023 Evaluation note* Encounter Date Diagnosis Assessment Notes Treatment Notes Treatment Clinical Notes Sep, Acute non-recurrent maxillary sinusitis (ICD-10 - J01.00) Instructed to use Robitussin or Mucinex for cough, saline or Flonase NS for congestion, Tylenol for pain and fever. Sep, Encounter by telehealth for suspected COVID-19 (ICD-10 - Z20.822) Aware of quarantine guidelines. Retest in 2 days if symptoms worsen [facility] Other 12-14-2022 Progress note Author Giovanna Shelton [facility] June 29, 2022 9:03am Note Date/Time June 29, 2022 8:52am [facility] [place] [address] Hem/Onc Follow Up Note - OP Signed Patient: Renuka Caceres MR#: [id number] : 1960 Acct:[id number] Age/Sex: 61 / F Type: REG RCR [...] on letrozole therapy for T2 N0 M0 ER/LA positive breast cancer, status postlumpectomy in February [...] on self-exam. We reviewed her mammogram from [facility] performed 10/06/2021 which returned with heterogeneously dense breasts but no significant suspicious abnormalities and postsurgical changes in the right upper inner quadrant. She has not had baseline DEXA scan and we ordered this today. Advised to start calcium and vitamin D until DEXA findings which she will be contacted with [facility]. Next follow-up with nurse practitioner in 3 months, 6 months with nd. Moderate complexity visit over 25 minutes for [...] this month and has these done at [place]. Eliazar get this record once it's completed. [...] of 6 lymph nodes positive. ER and LA was positive, H ER 2 -. [employer] genetic testing was negative for BRCA 1 and 2. Oncotype DX showed low risk disease. She was started on radiation March 2021. Her family doctor is Dr. Juan Fowler and she was operated on by Dr. Salazar Kimble. TEJON: 60-year-old post-menopausal female- had menopause at age [...] stage T2 N0 M0 invasive lobular carcinoma, Edmond grade 2 with associated ductal carcinoma in [...] was started on Arimidex May 2021 (at [place]). Did not tolerated/t hot flashes, so switched [...] PO BID 03/11/21 [History Confirmed 06/29/22] hyaluronic qynlnj-eppczpqqi-ruwc vera extract topical gel (RadiaPlexRx topical gel) [...] stage T2 N0 M0 invasive lobular carcinoma, Edmond grade 2 with associated ductal carcinoma in [...] of May [address] Lopes at [place]. 07/20/2021: Stopped anastrozole due to severe hot [...] have her mammogram done this month at [place] and will have results sent to us. [...] for coordination of care (as documented) and mslf-kw-ubid counseling of patient and/or family. Dictated By: Giovanna Shelton APRN DD/ 0846 Signed By: <Electronically signed by YEFRI Shelton> 06/29/22 0903 [facility] Work Phone: 1(202) 582-949409-28-2022 Progress note Author Giovanna Shelton [facility] April 13, 2022 9:15am Note Date/Time April 13, 2022 8:39am [facility] [place] [address] Hem/Onc Follow Up Note - OP Signed Patient: Renuka Caceres MR#: [id number] : 1960 Acct:[id number] Age/Sex: 61 / F Type: REG RCR [...] on letrozole therapy for T2 N0 M0 ER/LA positive breast cancer, status postlumpectomy in February [...] on self-exam. We reviewed her mammogram from [facility] performed 10/06/2021 which returned with heterogeneously dense breasts but no significant suspicious abnormalities and postsurgical changes in the right upper inner quadrant. She has not had baseline DEXA scan and we ordered this today. Advised to start calcium and vitamin D until DEXA findings which she will be contacted with afterreview. Next follow-up with nurse practitioner in 3 months, 6 months with nd. Moderate complexity visit over 25 minutes for transfer of oncology care and review of osteopenia screening and recommendations for supplemental calcium/vitamin D. 10/20/2021: eRnuka presents today in follow-up for her breast [...] this month and has these done at [place]. Lobitoll get this record once it's completed. [...] of 6 lymph nodes positive. ER and LA was positive, H ER 2 -. [employer] genetic testing was negative for BRCA 1 and 2. Oncotype DX showed low risk disease. She was started on radiation March 2021. Her family doctor is Dr. Juan Fowler and she was operated on by Dr. Salazar Kimble. TEJON: 60-year-old post-menopausal female- had menopause at age [...] was started on Arimidex May 2021 (at [place]). Did not tolerated/t hot flashes, so switched [...] PO BID 03/11/21 [History Confirmed 04/13/22] hyaluronic hnqzvs-paegkganp-hvhy vera extract topical gel (RadiaPlexRx topical gel) [...] stage T2 N0 M0 invasive lobular carcinoma, Edmond grade 2 with associated ductal carcinoma in [...] of May [address] Lopes at [place]. 07/20/2021: Stopped anastrozole due to severe hot [...] have her mammogram done this month at [place] and will have results sent to us. [...] for coordination of care (as documented) and qrty-fe-cfva counseling of patient and/or family. Dictated By: Giovanna Shelton APRN DD/ 5 Signed By: <Electronically signed by YEFRI Shelton> 04/13/22 0915 [facility] Work Phone: 1([phone]) 255-769609-01-2022 Evaluation note* Encounter Date Diagnosis Assessment Notes [...] as well as use of voltaren gel. [facility] Other 06-30-2022 Progress note Author Chiara Hoffmann [facility] January 13, 2022 12:36pm Note Date/Time January 13, 2022 8:[address] [facility] [place] [address] Hem/Onc Follow Up Note - OP Signed Patient: Renuka Caceres MR#: [id number] : 1960 Acct:[id number] Age/Sex: 61 / F Type: REG RCR [...] on letrozole therapy for T2 N0 M0 ER/LA positive breast cancer, status postlumpectomy in February [...] on self-exam. We reviewed her mammogram from [facility] performed 10/06/2021 which returned with heterogeneously dense [...] this month and has these done at [place]. Wewill get this record once it's completed. [...] of 6 lymph nodes positive. ER and LA was positive, H ER 2 -. [employer] genetic testing was negative for BRCA 1 and 2. Oncotype DX showed low risk disease. She was started on radiation March 2021. Her family doctor is Dr. Juan Fowler and she was operated on by Dr. Salazar Kimble. TEJON: 60-year-old post-menopausal female- had menopause at age [...] was started on Arimidex May 2021 (at [place]). Did not tolerated/t hot flashes, so switched [...] PO BID 03/11/21 [History Confirmed 01/13/22] hyaluronic stuavc-dkkksywiw-qavt vera extract topical gel (RadiaPlexRx) 1 applicTOPICAL [...] stage T2 N0 M0 invasive lobular carcinoma, Edmond grade 2 with associated ductal carcinoma in [...] stage T2 N0 M0 invasive lobular carcinoma, Edmond grade 2 with associated ductal carcinoma in [...] of May [address] Lopes at [place]. 07/20/2021: Stopped anastrozole due to severe hot [...] have her mammogram done this month at [place] and will have results sent to us. [...] for coordination of care (as documented) and jtil-cv-vxat counseling of patient and/or family. Dictated By: Chiara Hoffmann MD DD/ Signed By: <Electronically signed by MD Chiara Hoffmann> 01/13/22 1236 [facility] Work Phone: 1(480) 169-957706-30-2022 Progress note Author Darshan Solomon [facility] January 13, 2022 9:17am Note Date/Time January 13, 2022 8:59 am [facility] at [address] [address] Rad Onc Follow Up Note - OP Signed Patient: Renuka Caceres MR#: [id number] : 1960 Acct:[id number] Age/Sex: 61 / F Type: REG RCR [...] pathological stage pT2 pN0 M0, ER positive, LA positive and HER-2/rikki negative, stage Ib. Patient [...] stage T2 N0 M0 invasive lobular carcinoma, Edmond grade 2with associated ductal carcinoma in situ and lobular carcinoma in situ. She underwent lumpectomy and sentinel biopsy on 02/15/2021 and the final pathologyreport confirmed stage T2 N0 M0 invasive lobular carcinoma, Edmond grade 2 with associated ductal carcinoma in [...] signed by Darshan Solomon MD> 01/13/22 0917 [facility] Work Phone: [phone]) 199-434206-19-2022 NotePROCEDURE: XR FINGER MIN 2 VIEWS HISTORY: [...] Electronically authenticated by: ANDREW MORRIS Date: 2022-01-02 10:32[facility]04-06-2022 Progress note Author Giovanna Shelton [facility] October 20, 2021 12:49pm Note Date/Time October 20, 2021 9:21 am [facility] [place] [address] Hem/Onc Follow Up Note - OP Signed Patient: Renuka Caceres MR#: [id number] : 1960 Acct:[id number] Age/Sex: 60 / F Type: REG RCR [...] this month and has these done at [place]. Eliazar get this record once it's completed. [...] of 6 lymph nodes positive. ER and LA was positive, H ER 2 -. [employer] genetic testing was negative for BRCA 1 and 2. Oncotype DX showed low risk disease. She was started on radiation March 2021. Her family doctor is Dr. Juan fowler and she was operated on by Dr. Salazar Kimble. TEJON: 60-year-old post-menopausal female- had menopause at age [...] was started on Arimidex May 2021 (at [place]). Did not tolerated/t hot flashes, so switched to letrozole 08/11/2021 -- Will continue letrozole for 5 years (May 2026) [facility] - Medical History Medical History: Medical History [...] PO BID 03/11/21 [History Confirmed 10/20/21] hyaluronic youlli-bkdojipwu-khgv vera extract topical gel (RadiaPlexRx) 1 applicTOPICAL [...] stage T2 N0 M0 invasive lobular carcinoma, Edmond grade 2 with associated ductal carcinoma in [...] of May [address] Lopes at [place]. 07/20/2021: Stopped anastrozole due to severe hot [...] have her mammogram done this month at [place] and will have results sent to us. [...] for coordination of care (as documented) and tzga-qj-wtox counseling of patient and/or family. Dictated By: Giovanna Shelton APRN DD/ 0 Signed By: <Electronically signed by YEFRI Shelton> 10/20/21 1249 [facility] Work Phone: 1(405) 490-299201-04-2022 Progress note Author Daniel oLpes [facility] July 20, 2021 10:06am Note Date/Time July 20, 2021 9: 54am [facility] [place] [address] Hem/Onc Follow Up Note - OP Signed Patient: Renuka Caceres MR#: [id number] : 1960 Acct:[id number] Age/Sex: 60 / F Type: REG RCR [...] of 6 lymph nodes positive. ER and LA was positive, H ER 2 -. [employer] [...] PO BID 03/11/21 [History Confirmed 07/20/21] hyaluronic hikuiu-fbnunhzsd-kknt vera extract topical gel (RadiaPlexRx) 1 applicTOPICAL [...] for coordination of care (as documented) and gmxs-vu-hlca counseling of patient and/or family. Dictated By: Daniel Lopes MD DD/ Signed By: <Electronically signed by MD Daniel Lopes> 07/20/21 1003 [facility] Work Phone: 1(256) 428-197812-09-2021 Progress note Author Thiago Durbin [facility] June 24, 2021 10:35am Note Date/Time June 24, 2021 1 0:26am [facility] [place] [address] Rad Onc Follow Up Note - OP Signed Patient: Renuka Caceres MR#: [id number] : 1960 Acct:[id number] Age/Sex: 60 / F Type: REG RCR Copies to: DO Daniel Calvert MD Michael R Nill, MD FACS~ Subjective - Service Date/Time Date: 06/24/21 Time: 10:15 - Diagnosis Invasive lobular carcinoma of the upper medial quadrant of the right breast, grade 1 with associated DCIS and LCIS, pathological stage pT2 pN0 M0, ER positive, LA positive and HER-2/rikki negative, stage Ib. - [...] stage T2 N0 M0 invasive lobular carcinoma, Edmond grade 2 with associated ductal carcinoma in [...] pathological stage pT2 pN0 M0, ER positive, LA positive and HER-2/rikki negative, stage Ib. Assessment [...] quadrant, stage pT2 pN0 M0, ER positive, LA positive and HER-2 negative, stage Ib had [...] than 30 minutes I spent 20 minutes dtgg-tx-frzp time with this patient and more than [...] signed by Thiago Durbin MD> 06/24/21 1035 [facility] Work Phone: 1(257) 696-495809-21-2021 Progress note Author Daniel Lopes [facility] April 06, 2021 9:12am Note Date/Time April 06, 2021 9:10am [facility] [place] [address] Hem/Onc Follow Up Note - OP Signed Patient: Renuka Caceres MR#: [id number] : 1960 Acct:[id number] Age/Sex: 60 / F Type: REG RCR [...] starting radiation. She is from [facility] and will follow up with me in 2 months to start adjuvant radiationtherapy. This is a very nice 60-year-old female with a lobular carcinoma of the breast who I saw at [facility]. Oncotype DX was done which showed lowrisk disease and no indications for chemotherapy. Because of strong family history, we did do [employer] genetic testing which was negative. She will be getting radiation simulation today April 06, 2021 and then follow-up with me in 2 months to start adjuvant hormonal therapy at [facility]. Subjective/ROS - Narrative: Negative review of systems [...] and see me in 2 months in [place] to start adjuvant hormonal therapy with an aromatase similar for 5 years. - Time with Patient Coordination of Care & Counseling Time: Greater than 50% of time spent with patient was for coordination of care (as documented) and rlvb-ui-trqn counseling of patient and/or family. Dictated By: Daniel Lopes MD DD/ 6 Signed By: <Electronically signed by MD Daniel Lopes> 04/06/21911 [facility] Work Phone: 1(588) 186-266008-31-2021 Consult note Author Thiago Durbin [facility] March 16, 2021 3:14pm Note Date/Time March 12, 2021 11 :51am [facility] [place] [place] [address] Rad Onc Consult Note - OP Signed with Addenda Patient: Renuka Caceres MR#: [id number] : 1960 Acct:[id number] Age/Sex: 60 / F Type: REG RCR [...] pathological stage pT2 pN0 M0, ER positive, LA positive and HER-2/rikki negative, stage Ib. Chief [...] stage T2 N0 M0 invasive lobular carcinoma, Edmond grade 2 with associated ductal carcinoma in [...] pathological stage pT2 pN0 M0, ER positive, LA positive and HER-2/rikki negative, stage Ib. Assessment [...] quadrant, stage pT2 pN0 M0, ER positive, LA positive and HER-2 negative, stage Ib had [...] Dr. Lopes's care as her ER and LA receptors are strongly positive. Total Time Spent with Patient: Greater than 30 minutes I spent 50 minutes lxfn-gi-rnch time with this patient and more than [...] signed by Thiago Durbin MD> 03/12/21 1422 [facility] Work Phone: Evaluation + Plan note No data available for this section [facility] Diagnosis Onset Date Resolution Status Malignant neoplasm of upper- inner quadrant of right female breast acute [facility] Work Phone: Evaluation note* Diagnosis Onset Date Resolution Status Malignant neoplasm of upper- inner quadrant of right female breast chronic Osteoporosis screening [facility] Work Phone: Evaluation note* Diagnosis Onset Date Resolution Status Encounter for monitoring aromatase inhibitor therapy chronic Malignant neoplasm of upper- inner quadrant of right female breast chronic Osteoporosis screening [facility] Work Phone: Evaluation noteNo [email or web address] [employer] Other Evaluation note* Diagnosis Onset Date Resolution Status Diabetes mellitus type 2, co ntrolled, without complications chronic Encounter for monitoring aromatase inhibitor therapy chronic Malignant neoplasm of upper- inner quadrant of right female breast chronic Osteoporosis screening [facility] ic Pulmonary nodule less than 6 mm determined by computed tomography of lung chronic [facility] Work Phone: [facility] general Narrative - Reported* Type Description Date Medical History Hypertension Medical History diabetes mallitus Medical History breast cancer Surgical History tonsillectomy Surgical History C section Surgical History left ORIF by Dr. Aleman [employer] Other [facility] general Narrative - Reported* Type Description Date [...] Surgical History left ORIF by Dr. Aleman [facility] Other [facility] general Narrative - Reported* Type Description Date [...] Dr. Aleman Hospitalization History see surgical hx [facility] Other [facility] general Narrative - Reported* Type Description Date [...] Colonoscopy 12/2022 Hospitalization History see surgical hx [facility] Other [facility] general Narrative - Reported* Type Description Date [...] Colonoscopy 12/2022 Hospitalization History see surgical hx [facility] Other Hospital Discharge instructions No data available for this section [facility] Author Giovanna Shelton [facility] April 13, 2022 9:15am Note Date/Time April 13, 2022 8:39am [facility] at [address] [address] Hem/Onc Follow Up Note - OP Signed Patient: Renuka Caceres MR#: [id number] : 1960 Acct:[id number] Age/Sex: 61 / F Type: REG RCR [...] in [address] Hoffmann. 01/13/2022: Renuak is here for 3-month follow-up on letrozole therapy for T2 N0 M0 ER/LA positive breast cancer, status postlumpectomy in February [...] on self-exam. We reviewed her mammogram from [facility] performed 10/06/2021 which returned with heterogeneously dense breasts but no significant suspicious abnormalities and postsurgical changes in the right upper inner quadrant. She has not had baseline DEXA scan and we ordered this today. Advised to start calcium and vitamin D until DEXA findings which she will be contacted with afterreview. Next follow-up with nurse practitioner in 3 months, 6 months with nd. Moderate complexity visit over 25 minutes for [...] this month and has these done at [facility] [facility]. Wewill get this record once it's completed. [...] of 6 lymph nodes positive. ER and LA was positive, H ER 2 -. [facility] genetic testing was negative for BRCA 1 and 2. Oncotype DX showed low risk disease. She was started on radiation March 2021. Her family doctor is Dr. Juan Fowler and she was operated on by Dr. Salazar Kimble. TEJON: 60-year-old post-menopausal female- had menopause at age [...] stage T2 N0 M0 invasive lobular carcinoma, Edmond grade 2 with associated ductal carcinoma in [...] was started on Arimidex May 2021 (at [facility]). Did not tolerated/t hot flashes, so switched [...] PO BID 03/11/21 [History Confirmed 04/13/22] hyaluronic gvromc-zybixfvdm-zxjz vera extract topical gel (RadiaPlexRx topical gel) [...] stage T2 N0 M0 invasive lobular carcinoma, Edmond grade 2 with associated ductal carcinoma in [...] stage T2 N0 M0 invasive lobular carcinoma, Edmond grade 2 with associated ductal carcinoma in [...] of May [address] Lopes at [facility]. 07/20/2021: Stopped anastrozole due to severe hot [...] have her mammogram done this month at [facility] and will have results sent to us. [...] for coordination of care (as documented) and bbih-fb-qbjh counseling of patient and/or family. Dictated By: Giovanna Shelton APRN DD/ 5 Signed By: <Electronically signed by YEFRI Shelton> 04/13/22914 [facility] Work Phone: Progress note Author Giovanna Shelton [facility] June 29, 2022 9:03am Note Date/Time June 29, 2022 8:52am [facility] [place] [address] Hem/Onc Follow Up Note - OP Signed Patient: Renuka Caceres MR#: [id number] : 1960 Acct:[id number] Age/Sex: 61 / F Type: REG RCR [...] on letrozole therapy for T2 N0 M0 ER/LA positive breast cancer, status postlumpectomy in February [...] on self-exam. We reviewed her mammogram from [facility] performed 10/06/2021 which returned with heterogeneously dense [...] this month and has these done at [place]. Eliazar get this record once it's completed. [...] of 6 lymph nodes positive. ER and LA was positive, H ER 2 -. [facility] genetic testing was negative for BRCA 1 and 2. Oncotype DX showed low risk disease. She was started on radiation March 2021. Her family doctor is Dr. Juan Fowler and she was operated on by Dr. Salazar Kimble. TEJON: 60-year-old post-menopausal female- had menopause at age [...] was started on Arimidex May 2021 (at [place]). Did not tolerated/t hot flashes, so switched [...] PO BID 03/11/21 [History Confirmed 06/29/22] hyaluronic jnmrds-smmjlxuqg-buri vera extract topical gel (RadiaPlexRx topical gel) [...] stage T2 N0 M0 invasive lobular carcinoma, Edmond grade 2 with associated ductal carcinoma in [...] stage T2 N0 M0 invasive lobular carcinoma, Edmond grade 2 with associated ductal carcinoma in [...] of May [address] Lopes at [place]. 07/20/2021: Stopped anastrozole due to severe hot [...] have her mammogram done this month at [place] and will have results sent to us. [...] for coordination of care (as documented) and odvx-wm-rxkr counseling of patient and/or family. Dictated By: Giovanna Shelton APRN DD/ 0846 Signed By: <Electronically signed by YEFRI Shelton> 06/29/22 0903 [facility] Work Phone: Progress note Author Chiara Hoffmann [facility] December 28, 2022 9:59am Note Date/Time December 28, 2022 9:34 am [facility] [place] [address] Hem/Onc Follow Up Note - OP Signed Patient: Renuka Caceres MR#: [id number] : 1960 Acct:[id number] Age/Sex: 62 / F Type: REG RCR [...] was refilled today. Her mammogramwas performed at [facility] on 11/28/2022 showed heterogeneously dense breasts but [...] regularly. Last DEXA scan was normal at [place] 01/18/2022 will be due in 1 year. [...] on letrozole therapy for T2 N0 M0 ER/LA positive breast cancer, status postlumpectomy in February [...] on self-exam. We reviewed her mammogram from [facility] performed 10/06/2021 which returned with heterogeneously dense [...] this month and has these done at [place]. Wewill get this record once it's completed. [...] of 6 lymph nodes positive. ER and LA was positive, H ER 2 -. [facility] genetic testing was negative for BRCA 1 and 2. Oncotype DX showed low risk disease. She was started on radiation March 2021. Her family doctor is Dr. Juan Fowler and she was operated on by Dr. Salazar Kimble. TEJON: Now 62-year-old post-menopausal female- had menopause at [...] was started on Arimidex May 2021 (at [place]). Did not tolerated/t hot flashes, so switched [...] labs for review - Impressions Imaging from [facility] reviewed: 11/28/2022: 3D diagnostic mammogram Breast composition: [...] stage T2 N0 M0 invasive lobular carcinoma, Edmond grade 2 with associated ductal carcinoma in [...] of May [address] Lopes at [place]. 07/20/2021: Stopped anastrozole due to severe hot [...] have her mammogram done this month at [place] and will have results sent to us. [...] for coordination of care (as documented) and hwdz-oe-tdoo counseling of patient and/or family. Dictated By: Chiara Hoffmann MD DD/ Signed By: <Electronically signed by MD Chiara Hoffmann> 12/28/2259 [facility] Work Phone: Reason for referral (narrative)* Reason Referral for screeni ng colonoscopy in asymptomatic high risk patient. Diagnosis 1 Encounter for screen ing colonoscopy (Z12.11) Referral Organization [facility] Keo baker Referring Provider First Name Singh Referring Provider Last Name Keo Referring Provider Specialty Internal Me humberto Referred Provider Salazar Muniz Referred Provider Specialty Surgery Referral Priority Routine TOBESOFT Other Chief Complaint and Reason for Visit [...] , DO Primary Care Provider Active Daniel Lopse MD Referring Provider Active Chiara Hoffmann MD Attending Provider Active Team Status: Inactive Member Role Status Dates Singh Fowler , DO Primary Care Provider Active Naga Acuna MD Attending Provider Active Goals (unrecognized section and content) Goals may be documented in a n alternate section REASON FOR VISIT (unrecogniz ed section and content) Right Knee [id number] COVID negative, possible sinus infectionNo InformationNo InformationRefill6 MONTH CHECK UPLab ResultsRefillNo InformationNo Information4 month Follow upNo InformationCT scan6 MONTH CHECK UPLab ResultsNo InformationNo Information4 month Follow upsore throat, cough , testing for COVID INFORMATION SOURCE (unrecogn ized section and content) DATE CREATED AUTHOR [facility]/29/2022 [facility] DATE CREATED AUTHOR AUTHOR'S ORGANIZ ATION 01/13/2023 [facility] DATE CREATED AUTHOR AUTHOR'S ORGANIZ ATION 06/30/2023 [facility] FOR RECORDS PERTAINING TO PATIENTS WHO ARE [...] BE BASED ON THE PRIMARY CLINICAL RECORDS. [employer] provides no warranty or guarantee of the accuracy or completeness of information in this document.
== END 2023-11-11 17:59 | disposition home or self-care (01) ==
LOC: RAD 18:01
PROVIDERS: PCP Internal Medicine; Visit Provider Internal Medicine
DX: M25.561 Pain in right knee (principal); M17.11 Unilateral primary osteoarthritis, right knee
CPT/HCPCS: 73564

== ENCOUNTER 2023-11-17 09:05 | Outpatient (OUT) | payer BC, MEDICARE, SELFPAY ==
--- NOTE | 2023-11-17 09:21 | CT_ITS ---
The [address] [address] Patient Name: PRICE CACERES MRN: [id number] date: 1960 Sex: F Assigned Patient Location: CT Current Patient Location: CT Accession/Order Number: [id number] Exam Date: 11/17/2023 09:15 Report Date: 11/17/2023 11:32 At the request of: RAUL CACERES Procedure: CT chest wo con EXAMINATION: CT chest wo con HISTORY: Nodule Of Right Lung R91.1 COMPARISON: 11/28/2022 TECHNIQUE: Multi-planar CT images were created with IV contrast. Axial, Coronal, and Sagittal images. Dose reduction techniques were achieved by using automated exposure control and/or adjustment of mA and/or kV according to patient size and/or use of iterative reconstruction technique. FINDINGS: LUNGS: Scattered subcentimeter calcified and noncalcified pulmonary nodules stable both in number and size from the prior exam. No new significant pulmonary nodule or mass. Some minimal subpleural groundglass opacities in the right upper lobe, also stable. PLEURA: No mass, effusion, or pneumothorax. VASCULATURE: No abnormality. NEO: No mass or adenopathy. MEDIASTINUM: No mass or adenopathy. CARDIAC: No enlargement, pericardial thickening, or significant calcification. AORTA: No aneurysm or dissection. CHEST WALL: No mass or axillary adenopathy. BONES: No bone lesion or fracture. LIMITED ABDOMEN: Diffuse hypoattenuation the liver consistent with hepatic steatosis. Focal sparing at the gallbladder fossa OTHER: Negative. CT/CT chest wo con IMPRESSION: Stable scattered subcentimeter pulmonary nodules, nonspecific Electronically authenticated by: JULIAN SLAUGHTER Date: 11/17/2023 11:32
== END 2023-11-17 09:06 | disposition home or self-care (01) ==
LOC: CT 09:05
PROVIDERS: PCP Internal Medicine; Visit Provider Family Medicine
DX: R91.1 Solitary pulmonary nodule (principal); R91.8 Other nonspecific abnormal finding of lung field
CPT/HCPCS: 71250

== ENCOUNTER 2023-11-21 09:30 | Outpatient (OUT) | payer BC, MEDICARE, SELFPAY | END 2023-11-21 09:31 | disposition home or self-care (01) | LOC: MN 12-22 14:53 | PROVIDERS: PCP Internal Medicine | DX: E11.9 Type 2 diabetes mellitus without complications (principal) | CPT/HCPCS: G0108 ==

== ENCOUNTER 2023-12-18 09:16 | Outpatient (OUT) | payer BC, MEDICARE, SELFPAY ==
--- NOTE | 2023-12-18 09:21 | MM_ITS ---
Patient Name: PRICE CACERES MR#: [id number] : 1960 Exam Date: 12/18/2023 Ordering Doctor: Non-Staff Physician RADIOLOGY REPORT PROCEDURE: MM TOMOSYNTHESIS DIAGNOSTIC BI COMPARISON: MG MAMM DIAGNOSTIC 3D OMKAR CAD, 11/28/2022. MG MAMM DIAGNOSTIC 3D OMKAR CAD, 12/06/2021. MAMMO POST HOOKWIRE RIGHT, 01/29/2021. MG MAMM OMKAR SCRN W CAD DIG, 04/23/2015. INDICATIONS: Right Breast Cancer Calculator Name NCI Breast Cancer Risk Assessment Tool 5 Year Breast Cancer Risk 3.00% Lifetime Breast Cancer Risk 11.20% Personal Breast Cancer No Personal Ovarian Cancer No Treatments None Family Cancers Aunt-paternal with breast cancer at age ~60; Father with colon/kidney cancer at age ~40. LOCATION: The [facility] BREAST COMPOSITION: The breasts are heterogeneously dense,which may obscure small masses. FINDINGS: DIAGNOSTIC CATEGORY 2--BENIGN FINDING: RIGHT BREAST: No significant suspicious finding. Stable postsurgical scarring. No significant change has occurred. LEFT BREAST: No significant suspicious finding. No significant change has occurred. RECOMMENDATIONS: ROUTINE MAMMOGRAM AND CLINICAL EVALUATION IN 12 MONTHS. PLEASE NOTE: A NORMAL MAMMOGRAM DOES NOT EXCLUDE THE POSSIBILITY OF BREAST CANCER. A CLINICALLY SUSPICIOUS PALPABLE LUMP SHOULD BE BIOPSIED. Dictated by: Andrew Morris M.D. on 12/18/2023 at 09:52 Approved by: Andrew Morris M.D. on 12/18/2023 at 09:56
== END 2023-12-18 09:17 | disposition home or self-care (01) ==
LOC: MAMMO 09:16
PROVIDERS: PCP Internal Medicine
DX: C50.211 Malignant neoplasm of upper-inner quadrant of right female breast (principal); Z17.0 Estrogen receptor positive status [ER+]; Z80.3 Family history of malignant neoplasm of breast; Z80.0 Family history of malignant neoplasm of digestive organs; Z80.51 Family history of malignant neoplasm of kidney
CPT/HCPCS: 77066; G0279

== ENCOUNTER 2024-01-22 08:53 | Outpatient (OUT) | payer BC, MEDICARE, SELFPAY ==
--- NOTE | 2024-01-22 08:55 | XR_ITS ---
[address] [address] Patient Name: PRICE CACERES MRN: [id number] date: 1960 Sex: F Assigned Patient Location: [facility] Current Patient Location: [facility] Accession/Order Number: [id number] Exam Date: 01/22/2024 09:14 Report Date: 01/22/2024 09:36 At the request of: NON-STAFF PHYSICIAN Procedure: XR DEXA axial skeleton EXAMINATION: XR DEXA axial skeleton, 01/22/2024 9:14 AM EDT HISTORY: Screening For Osteoporosis COMPARISON: 2021. TECHNIQUE: Dual-energy X-ray absorptiometry (DEXA) bone density study performed for the axial skeleton. FINDINGS: Bone mineral density AP spine L1-L4 measures 1.241 g/sq cm. T score 0.5. Normal Lowest bone mineral density right femoral trochanter measuring 0.8 0.2 g/sq cm. T score -0.3. Normal Bone mineral density is up to 7.9% below the previous exam, likely physiologic decrease XR/XR DEXA axial skeleton IMPRESSION: Normal bone mineral density. Low fracture risk 10 year fracture risk not reported because T score is above -1.0 Pharmacologic treatment recommendations * No uniform recommendation applies to all patients. Management plans must be individualized. * Consider initiating pharmacologic treatment in postmenopausal women and men >= 50 years of age who have the following: Primary fracture prevention: * T-score <= - 2.5 at the femoral neck, total hip, lumbar spine, 33% radius (some uncertainty with existing data) by DXA. * Low bone mass (osteopenia: T-score between - 1.0 and - 2.5) at the femoral neck or total hip by DXA with a 10-year hip fracture risk >= 3% or a 10-year major osteoporosis-related fracture risk >= 20% (i.e., clinical vertebral, hip, forearm, or proximal humerus) based on the [place]-adapted FRAXregistered model. Secondary fracture prevention: * Fracture of the hip or vertebra regardless of BMD [4, 5]. * Fracture of proximal humerus, pelvis, or distal forearm in persons with low bone mass (osteopenia: T-score between - 1.0 and - 2.5). The decision to treat should be individualized in persons with a fracture of the proximal humerus, pelvis, or distal forearm who do not have osteopenia or low BMD [12, 13]. Dhara MS, Keisha SL, Pradip KL, Marcelina EM, Jose Angel KG, AJ, Atul ES. The clinician's guide to prevention and treatment of osteoporosis. Osteoporos Int. 2021;33(10):1187-3754. doi: 10.1007/d84900-008-89693-t. Epub 2021Nov 11. Erratum in: Osteoporos Int. 2021Feb 10;: PMID: [id number]; PMCID: [id number]. Electronically authenticated by: JULIAN SLAUGHTER Date: 01/22/2024 09:36
--- OUTSIDE RECORDS SUMMARY | 2024-01-22 09:09 | XMS_ITS ---
Patient Summarization (C-CDA 2.1 CCD) Created on: January 22, 2024 Renuka Caceres : 1960 Sex: Female Demographics Address [address] [place] [address] Preferred Language en Marital Status Single Yazidi Affiliation Unknown Race White Ethnic Group Not or Lati no Author Organization Sample organization Care Team Providers Care Licensed Occupational Therapy Assistant Name Role Phone SINGH FOWLER Primary Care Physician MD Thiago Durbin Attending Provider [phone] DO Singh Fowler Primary Care Provider MD Daniel Lopes Referring Provider DO Singh Fowler Primary Care Provider MD Daniel Lopes Referring Provider Unavailable MD Chiara Hoffmann Attending Provider [phone] Vee Wadsworth Unavailable DO Singh Fowler Primary Care Provider MD Naga Acuna Attending Provider MD Daniel Lopes Referring Provider Unavailable MD Chiara Hoffmann Attending Provider DO Singh Fowler Primary Care Provider MD Daniel Lopes Referring Provider Unavailable MD Chiara Hoffmann Attending Provider [phone] Singh Fowler Unavailable Sydney Mayes Unavailable DR CHIARA HOFFMANN Attending Unavailable SHUN, DR CHIARA Monaco Admitting Unavailable KEO, DR WINTERS Primary Care Unavailable MATESUZ, DR ANDREW Quintero Consulting Unavailable HARSHAD HUDSON Attending Unavailable CANDE Mcarthur, HARSHAD Admitting Unavailable KEO, DR WINTERS Primary Care Unavailable CANDE Mcarthur, HARSHAD Consulting Unavailable CANDE ., HARSHAD Consulting Unavailable CANDE Mcarthur, HARSHAD Attending Unavailable CANDE Mcarthur, HARSHAD Admitting Unavailable KEO, DR WINTERS Primary Care Unavailable KLYMJOSH Consulting Unavailable KEO, DR WINTERS Primary Care Unavailable KEO, DR WINTERS Attending Unavailable REQUEST, DR ADAMSON LISTED Consulting Unavaila ble KEO, DR WINTERS Admitting Unavailable KEO, DR WINTERS Consulting Unavailable KEO, DR WINTERS Attending Unavailable BALL, DR WINTERS [...] Provider Unavailable MD Chiara Hoffmann Attending Provider [phone] Salazar MUNIZ Attending Unavailable NILSalazar Escobedo Attending Unavailable DO Singh Fowler Primary Care Provider MD Daniel Lopes Referring Provider Unavailable MD Chiara Hoffmann Attending Provider Daniel Lopes Referring Unavailable Keo, Singh Primary Care Unavailable Shun, Chiara Attending Unavailable Shun, Chiara Admitting Unavailable Allergies Allergy Classification Reported Allergen(s) Allergy Type Date of Onset Reaction(s) Facility (2 sources) Sulfonamides (Antibiotic); Translations: [sulfa drugs] Drug allergy Eruption of skin (disorder) [facility] (7 sources) Sulfonamides (Antibiotic); Translations: [Sulfa (Sulfonamide Antibiotics)] [facility] (1 source) sulfaSALAzine Drug Allergy Unknown [facility] Other (18 sources) Substance with sulfonamide structure and antibacterial mechanism of action (substance) Drug allergy Unknown [facility] Other (1 source) Sulfonamides (Antibiotic) Drug allergy (disorder) [facility] (1 source) Wheat preparation Drug Allergy 06-17-20 [facility] Encounters Encounter Date Encounter Type Care Provider Facility Start: 01-04-2024 ambulatory Daniel Lopes Facility: [facility] Start: 07-13-2023 End: 07-13-2023 ambulatory Singh Ball Other [employer] [employer] Other Start: 07-13-2023 Office outpatient vi sit 15 minutes Singh Ball [facility] Start: 07-07-2023 End: 07-07-2023 ambulatory Singh Ball Other [employer] [facility] Other Start: 07-07-2023 Office outpatient vi sit 25 minutes Singh Ball [facility] Start: 06-29-2023 End: 06-29-2023 ambulatory DO Singh Ball Work Phone: [facility] Work Phone: Start: 06-29-2023 End: 06-29-2023 Registered Recurring DO Singh Ball Work Phone: [facility] Work Phone: Start: 06-06-2023 End: 06-06-2023 ambulatory Singh Ball Other [employer] [facility] [employer] Other Start: 06-06-2023 Telephone encounter Singh Ball [facility] Start: 06-04-2023 End: 06-04-2023 ambulatory Singh Ball Other [facility] Other Start: 06-04-2023 Telephone encounter Singh Ball [facility] Start: 03-14-2023 End: 03-14-2023 ambulatory Singh Ball Other [facility] Other Start: 03-14-2023 Telephone encounter Singh Ball [facility] Start: 03-06-2023 End: 03-06-2023 ambulatory Singh Ball Other [facility] Other Start: 03-06-2023 Patient encounter procedure Singh Fowler [facility] Start: 03-06-2023 Telephone encounter Singh KRISHNAN [facility] Start: 01-13-2023 End: 01-13-2023 ambulatory Singh Keo Other [facility] Other Start: 01-13-2023 Telephone encounter Singh KRISHNAN [facility] Start: 01-12-2023 End: 01-12-2023 ambulatory Singh Fowler Other [facility] Other Start: 01-12-2023 Telephone encounter Singh KRISHNAN [facility] Start: 01-11-2023 End: 01-12-2023 ambulatory Salazar MUNIZ Facility:CD:[id number] Start: 12-28-2022 End: 12-28-2022 ambulatory DO Singh Fowler Work Phone: [facility] Work Phone: Start: 12-28-2022 End: 12-28-2022 Registered Recurring DO Singh Fowler Work Phone: [facility] Work Phone: Start: 12-02-2022 End: 12-03-2022 ambulatory Salazar MUNIZ Facility:[facility] Start: 11-28-2022 End: 11-29-[address] SINGH FOWLER Facility:[facility] Start: 11-02-2022 End: 11-02-2022 ambulatory Singh Fowler Other [employer] [facility] [employer] Other Start: 11-02-2022 Encounter for genera l adult medical examination without abnormal findings Singh Fowler [facility] Start: 11-02-2022 Periodic preventive med est patient 40-64yrs Singh Fowler [facility] Start: 10-14-2022 End: 10-14-2022 ambulatory Singh Keo Other [facility] Other Start: 10-14-2022 Telephone encounter Singh KRISHNAN [facility] Start: 10-03-2022 Encounter for genera l adult medical examination without abnormal findings DR SINHG FOWLER [facility] Start: 09-28-2022 End: 09-28-2022 ambulatory Singh Fowler Other [facility] Other Start: 09-28-2022 Telephone encounter Singh Fowler [facility] Start: 09-27-2022 End: 09-28-2022 Encounter for general adult medical examination without abnormal findings DR SINGH FOWLER Facility:[facility] Start: 09-27-2022 End: 09-28-[address] SINGH FOWLER [facility] [facility] Other Start: 09-27-2022 Telephone encounter Sydney Escobarja [facility] Start: 09-19-2022 End: 09-19-2022 ambulatory Singh Fowler Other [facility] Other Start: 09-19-2022 Encounter for genera l adult medical examination without abnormal findings Singh Fowler [facility] Start: 09-19-2022 Telephone encounter Singh KRISHNAN [facility] Start: 09-16-2022 End: 09-16-2022 ambulatory Singh Fowler Other [employer] [employer] Other Start: 09-16-2022 Office outpatient vi sit 15 minutes Singh Fowler [facility] Start: 06-29-2022 End: 06-29-2022 ambulatory DO Singh Fowler Work Phone: [facility] Work Phone: Start: 06-29-2022 End: 06-29-2022 Registered Recurring DO Singh Fowler Work Phone: [facility] Start: 05-19-2022 End: 05-20-[address] SINGH FOWLER Facility:[facility] Start: 05-02-2022 End: 05-03-[address] SINGH FOWLER Facility:[facility] Start: 04-13-2022 End: 04-13-2022 ambulatory DO Singh Fowler Work Phone: [facility] Work Phone: Start: 04-13-2022 End: 04-13-2022 Registered Recurring DO Singh Fowler [facility] Start: 03-17-2022 End: 03-17-2022 ambulatory Vee Wadsworth Other [facility] Other Start: 03-17-2022 Office outpatient ne w 30 minutes Vee Wadsworth [facility] Start: 03-17-2022 End: 03-17-2022 Patient encounter procedure DO Singh Fowler Work Phone: [facility] Start: 02-26-2022 End: 02-26-2022 ambulatory HARSHAD CASTELLON . Facility:[facility] Start: 02-07-2022 ambulatory Salazar MUNIZ Facility:[facility] Start: 01-18-2022 End: 01-19-[address] ANDREW MORRIS Facility:[facility] Start: 01-13-2022 End: 01-13-2022 Registered Recurring DO Singh Fowler [facility] Start: 01-02-2022 End: 01-02-[address] ANDREW MORRIS Facility:[facility] Start: 12-06-2021 End: 12-07-[address] SINGH FOWLER Facility:[facility] Start: 10-20-2021 End: 10-20-2021 Registered Recurring MD Thiago Durbin [facility] Start: 03-08-2021 End: 06-01-2021 Pre-admission assessment Daniel Lopes [facility] Immunizations Immunization Date Immunization Notes Care Provider Fa chelita 08-06-2020 COVID-19 mRNA-1273 (Moderna) MD Thiago Durbin Work Phone: [facility] 06-16-2020 COVID-19 mRNA-1273 (Moderna) MD Thiago Durbin Work Phone: [facility] 04-24-2013 tetanus and diphther ia toxoids, adsorbed, preservative free, for adult use (5 Lf of tetanus toxoid and 2 Lf of diphtheria toxoid) Singh Fowler Other [employer] Other Medications Current Medications Medication Drug Class(es) Dates [...] 2021 11:00pm take 1 tablet by prisca every twenty-four hours Benazepril HCl 40 MG 1 tablet Orally Onc e a day Active Hyaluronic Hn-Vjszzbazh-Jqnk ([facility]) Gel (6 sources) Start: 05-18-2021 Hyaluronic Na- Allantoin-Aloe ([facility]) Gel Active 1 APPLIC TOPICAL Three times daily May 18, 2021 9:12am Start: 05-18-2021 End: 12-28-2022 Hyaluronic Ey-Rdguzbjwl-Bzqo ([facility]) Gel Discontinued 1 APPLIC TOPICAL Three times daily May 17, 2021 11:00pm December 28, 2022 8:29am Start: 05-18-2021 End: 12-28-2022 Hyaluronic Rs-Nkbnuwbsx-Rlna ([facility]) Gel Discontinued 1 APPLIC TOPICAL Three [...] Status: Ordered take 1 tablet by prisca every twenty-four hours metFORMIN HCl 500 MG [...] Start Date: 01/11/21 Status: Ordered Vitamin E Not-Ta /PRN Vitamin E Not-Ta Vitamin E Active zinc oxide 0.1 mg/mg topical ointment (6 sources) Start: 05-31-2021 End: 12-28-2022 Zinc Oxide Discontinued 1 AP PLIC TOPICAL Three times daily 60 May 31, 2021 12:00am December 28, 2022 8:29am Payers Date Payer Category Payer [facility] [id number] 2021 Self-pay [id number] 2019 Unknown [id number] 1959 Self-pay [id number] 1960 Unknown [id number] 2.16.84 [id number] 1960 Unknown [id number] 2.16.84 [id number] 1960 Unknown [id number] 2.16.84 0.1.909445.3.579.2.593 1960 Unknown [id number] 2.16.84 0.1.685586.3.579.2.593 1960 Unknown [id number] 2.16.84 0.1.188751.3.579.2.593 1960 Unknown [id number] 2.16.84 0.1.784887.3.579.2.593 1960 Unknown [id number] 2.16.84 0.1.704199.3.579.2.593 1960 Unknown [id number] 2.16.84 0.1.997903.3.579.2.593 1960 Unknown [id number] 2.16.8 40.1.483366.3.579.2.727 1960 Unknown [id number] 2.16.8 40.1.690711.3.579.2.727 1960 Unknown [id number] 2.16.8 40.1.590835.3.579.2.727 Unknown [id number] 2.16.84 0.1.597989.3.579.2.593 Unknown [id number] 2.16.84 0.1.039505.3.579.2.593 Unknown [id number] 2.16.8 [id number] Plan of Treatment Date Care Activity Detail Author Start: 10-20-2021 [facility] Start: 04-06-2021 [facility] Computed tomography for radiotherapy planning [facility] DXA Skeletal system. axial Views for bone density [facility] DXA Skeletal system. axial Views for bone density [facility] MG Breast - bilateral Diagnostic [facility] MG Breast - bilateral Diagnostic [facility] Problems Active Problems Problem Classification Problem Date [...] drug level monitoring] 01-13-2022 Episodic Other aftercare (4 sources) Encounter for therapeutic drug level monitoring; Translations: [Encounter for therapeutic drug monitoring] 04-13-2022 Episodic Other connective tissue disease (1 source) [...] conditions (not mental disorders or infectious disease) (13 sources) Patient encounter status; Translations: [Encounter for [...] Unclassified (1 source) Adenocarcinoma of breast 01-11-2021 Past or Other Problems Problem Classification Problem Date Documented Da te Episodic/Chronic E Codes: Natural/environment (2 sources) Exposure to other specified factors, initial encounter; Translations: [Other and unspecified overexertion or strenuous movements or postures, initial encounter] Onset: 01-03-2022 Episodic Other aftercare (1 source) Other mcc (current) drug therapy; Translations: [OTH RETIREMENT CURRENT DRUG THERAPY] Onset: 02-28-2022 Episodic Other aftercare (1 source) medical terminologist (current) use of oral hypoglycemic drugs; Translations: [RETIREMENT USE ORAL HYPOGLYCEMIC DX] Onset: 01-03-2022 Episodic [...] Encounter by telehealth for suspected COVID-19 Z20.822 Procedures Date Procedure Procedure Detail Performing Clinician Start: 03-17-2022 X-ray of right knee DO Singh [email or web address] Work Phone: Start: 02-22-2021 Re-excision of breas t for clearance of tumor margins Daniel Lopes Start: 06-04-2019 Fracture of ankle (disorder) Daniel Lopes section Daniel cabrera Fine needle aspirati on of breast using ultrasound guidance Daniel Lopes Lumpectomy of right breast Bakari Lopes Tonsillectomy Daniel Lopes Results Test Name Value Interpretation Reference Range Facility Outside [facility] 2022 Outside Colonoscopy [id number]#1.00C D:127 [facility] Reminderson 01-12-2023 Reminders - From: Palmira Mei LPN To: [facility] - Clinical; Sent: 01/12/2023 14:47:17 EDT Show up: 12/11/2032 07:00:00 EDT Subject: colonoscopy recall Due Date/Time: 01/11/2033 07:00:00 EDT Reminder/Recall Patient due for screening colonoscopy 01/11/2033. [facility] Consultation Noteon 12-29-19 Consultation Note [id number]#1.00C D:127 [facility] Pre-Certification Formon Pre-Certification Form [id number]#1.00C D:127 [facility] Consent for Procedure/Surger yon 12-06-2022 Consent for Procedure/Surgery [id number]#1.00C D:127 [facility] Facesheeton 12-05-2022 Facesheet [id number]#1.00C D:127 [facility] Ambulatory Visit Summaryon 0 12-02-2022 Ambulatory Visit [...] fasciitis Syndesmotic disruption of left ankle Normal [facility] CT CHEST WO CONon 11-28-2022 CT CHEST [...] by: ANDREW MORRIS Date: 2022-11-28 09:52 Normal [facility] CT CHEST WO CON [employer] Other [facility] DIAGNOSTIC 3D OMKAR CA Don 11-28-2022 [facility] DIAGNOSTIC 3D OMKAR CAD Patient: RENUKA CACERES Exam Date: 11/28/2022 : 1960 Gender:F Ordering : MRS. 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 Order #: [id number] CLICK HERE TO VIEW EXAM RADIOLOGY REPORT [...] colon/kidney cancer at age 38. LOCATION: [facility] BREAST COMPOSITION: Heterogeneously dense,which may obscure small [...] Morris M.D. on 11/28/2022 at 09:41 Normal [facility] Physician Referralon 023 Physician Referral [id number]#1.00C D:127 Normal [facility] Physician Referralon 023 Physician Referral [id number]#1.00C D:127 Normal [facility] CBC AUTO DIFFon 09-27-2022 BASO # 0.0 103/ul Normal 0.0-0.1 [facility] Comment on above: Performed By: #### C BC ####[facility] [address] [place], [place] [address]Dr. Marysol Peace Basophils/100 WBC (Bld) 0.2 % Normal 0.2-2.0 [facility] Comment on above: Performed By: #### C BC ####[facility] [address] [place], [place] [address]DrLyubov Peace EO # 0.2 103/ul Normal 0.0-0.7 [facility] Comment on above: Performed By: #### C BC ####[facility] [address] [place], [place] [address]DrLyubov Peace Eosinophils/100 WBC (Bld) 1.3 % Normal 0.9-7.0 [facility] Comment on above: Performed By: #### C BC ####[facility] [address] [place], [place] [address]DrLyubov Peace Erythrocyte distribution width (RBC) [Ratio] 13.0 % Normal 11.0-15.0 [facility] Comment on above: Performed By: #### C BC ####[facility] [address] [place], [place] [address]DrLyubov Peace Hematocrit (Bld) [Volume fraction] 46.6 % Normal 36.0-48.0 [facility] Comment on above: Performed By: #### C BC ####[facility] [address] [place], [place] [address]DrLyubov Peace Hemoglobin (Bld) [Mass/Vol] 15.7 g/dL Normal 12.0-16.0 [facility] Comment on above: Performed By: #### C BC ####[facility] [address] [place] [address]Dr. Piedadbre Peace IG # 0.04 10e3/ul Critically high 0.00-0.03 [facility] Comment on above: Performed By: #### C BC ####[facility] [address] [place] [address]Dr. Marysol Peace IG % 0.3 % Normal 0.0-0.5 [facility] Comment on above: Performed By: #### C BC ####[facility] [address] [place], [place] [address]DrLyubov Peace LYMPH # 0.5 103/ul Critically low 1.2-3.8 The [facility] Comment on above: Performed By: #### C BC ####[facility] [address] [place], [place] [address]Dr. Marysol Peace Lymphocytes/100 WBC (Bld) 3.8 % Critically low 20.5-60.0 [facility] Comment on above: Performed By: #### C BC ####[facility] [address] [place], [place] [address]DrLyubov Peace MANUAL DIFF REQ NO Normal [facility] Comment on above: Performed By: #### C BC ####[facility] [address] [place] [address]Dr. Marysol Peace MCH (RBC) [Entitic mass] 29.2 pg Normal 26.7-34.0 [facility] Comment on above: Performed By: #### C BC ####[facility] [address] [place], [place] [address]Dr. Marysol Peace MCHC (RBC) [Mass/Vol] 33.7 g/dL Normal 29.9-35.2 [facility] Comment on above: Performed By: #### C BC ####[facility] [address] [place], [place] [address]Dr. Marysol Peace MCV (RBC) [Entitic vol] 86.6 fL Normal 81.0-99.0 [facility] Comment on above: Performed By: #### C BC ####[facility] [address] [place], [place] [address]DrLyubov Marysol Peace MONO # 0.3 103/ul Normal 0.3-0.8 [facility] Comment on above: Performed By: #### C BC ####[facility] [address] [place], [place] [address]Dr. Marysol Kobi Monocytes/100 WBC (Bld) 2.8 % Normal 1.7-12.0 [facility] Comment on above: Performed By: #### C BC ####[facility] [address] [place], [place] [address]Dr. Marysol Peace NEUT # 10.7 103/ul Critically high 1.4-6.5 [facility] Comment on above: Performed By: #### C BC ####[facility] [address] [place], [place] [address]Dr. Marysol Kobi Neutrophils/100 WBC (Bld) 91.6 % Critically high 43.0-75.0 [facility] Comment on above: Performed By: #### C BC ####[facility] [address] [place], [place] [address]DrLyubov Marysol Kobi Platelet mean volume (Bld) [Entitic vol] 11.0 fL Normal 9.5-13.5 [facility] Comment on above: Performed By: #### C BC ####[facility] [address] [place], [place] [address]Dr. Marysol Kobi PLT 192 103/ul Normal 150-450 [facility] Comment on above: Performed By: #### C BC ####[facility] [address] [place], [place] [address]Dr. Marysol Peace RBC 5.38 106/ul Normal 4.20-5.40 [facility] Comment on above: Performed By: #### C BC ####[facility] [address] [place], [place] [address]Dr. Marysol Peace WBC 11.7 103/ul Critically high 4.0-11.0 [facility] Comment on above: Performed By: #### C BC ####[facility] [address] [place] [id number]. Marysol Peace GLYCOHEMOGLOBIN A1Con 2022 ADA RECOMMENDATION SEE BELOW Normal [facility] Comment on above: Result Comment: ADA RECOMMENDED LIMIT 4.0 - 6.0 ADA THERAPEUTIC TARGET < 7.0 ACTION SUGGESTED > 7.0 Performed By: #### A 1C ####[facility] [address] [place] [id number]. Marysol Peace Glucose [Mass/Vol] 154 mg/dL Normal [facility] Comment on above: Performed By: #### A 1C ####[facility] [address] [place] [address]Dr. Marysol Peace HbA1c (Bld) [Mass fraction] 7.0 % Critically high 4.5-6.2 [facility] Comment on above: Performed By: #### A 1C ####[facility] [address] [place], [place] [address]Dr. Marysol Peace LIPID PROFILEon 09-27-2022 CHOL-HDL RATIO NORM SEE BELOW Normal [facility] Comment on above: Result Comment: 3.3 - 4.4 LOW RISK 4.4 - 7.1 AVERAGE RISK 7.1 - 11.0 MODERATE RISK >11.0 HIGH RISK Performed By: #### L IPID, CMP, TSH ####[facility] [address] [place] [address]Dr. Marysol Peace Cholesterol [Mass/Vol] 136 mg/dL Normal <=200 [facility] Comment on above: Performed By: #### L IPID, CMP, TSH ####[facility] [address] [place] [id number]. Marysol Peace Cholesterol in HDL [Mass/Vol] 36 mg/dL Critically low 40-60 [facility] Comment on above: Performed By: #### L IPID, CMP, TSH ####[facility] [address] [place] [id number]. Marysol Peace Cholesterol in LDL [Mass/Vol] 66.2 mg/dL Normal [facility] Comment on above: Performed By: #### L IPID, CMP, TSH ####[facility] [address] [place] [id number]. Marysol Peace Cholesterol.total/C holesterol in HDL [Mass ratio] 3.8 {ratio} Normal [facility] Comment on above: Performed By: #### L IPID, CMP, TSH ####[facility] [address] [place] [id number]. Marysol Peace HDL NORMAL > or = 60 mg/dl - LO W CARDIOVASCULAR RISK <40 mg/dl - HIGH CARDIOVASCULAR RISK Normal [facility] Comment on above: Performed By: #### L IPID, CMP, TSH ####[facility] [address] [place] [address]Dr. Marysol Peace LDL CALC NORMAL SEE BELOW Normal [facility] Comment on above: Result Comment: <100 mg/dl OPTIMAL 100 - 129 mg/dl NEAR OR ABOVE OPTIMAL 130 - 159 mg/dl BORDERLINE HIGH 160 - 189 mg/dl HIGH >190 mg/dl VERY HIGH Performed By: #### L IPID, CMP, TSH ####[facility] [address] [place] [address]Dr. Marysol Peace Triglyceride [Mass/Vol] 169 mg/dL Critically high <=150 [facility] Comment on above: Performed By: #### L IPID, CMP, TSH ####[facility] [address] [place] [id number]. Marysol Peace VLDL CALC 33.8 mg/dL Normal [facility] Comment on above: Performed By: #### L IPID, CMP, TSH ####[facility] [address] [place] [id number] Peace PROF 14(COMP METB)on 023 Albumin [Mass/Vol] 3.9 g/dL Normal 3.4-5.0 [facility] Comment on above: Performed By: #### L IPID, CMP, TSH ####[facility] [address] [place] [id number] Peace Albumin/Globulin [Mass ratio] 1.1 {ratio} Normal [facility] Comment on above: Performed By: #### L IPID, CMP, TSH ####[facility] [address] [place] [address]Dr. Marysol Peace ALP [Catalytic activity/Vol] 92 U/L Normal 46-116 [facility] Comment on above: Performed By: #### L IPID, CMP, TSH ####[facility] [address] [place] [address]Dr. Marysol Peace ALT [Catalytic activity/Vol] 29 U/L Normal 14-59 [facility] Comment on above: Performed By: #### L IPID, CMP, TSH ####[facility] [facility] [id number] [place] [address]Dr. Marysol Peace Anion gap [Moles/Vol] 12.2 mmol/L Normal [facility] Comment on above: Performed By: #### L IPID, CMP, TSH ####[facility] [address] [place] [address]Dr. Marysol Peace AST [Catalytic activity/Vol] 20 U/L Normal 15-37 [facility] Comment on above: Performed By: #### L IPID, CMP, TSH ####[facility] [address] [place] [address]Dr. Marysol Peace Bilirubin [Mass/Vol] 0.5 mg/dL Normal 0.2-1.0 [facility] Comment on above: Performed By: #### L IPID, CMP, TSH ####[facility] [address] [place] [address]Dr. Marysol Peace Calcium [Mass/Vol] 8.9 mg/dL Normal 8.5-10.1 [facility] Comment on above: Performed By: #### L IPID, CMP, TSH ####[facility] [address] [place] [address]Dr. Piedadbre Peace Chloride [Moles/Vol] 102 mmol/L Normal 98-107 [facility] Comment on above: Performed By: #### L IPID, CMP, TSH ####[facility] [address] [place] [phone]. Marysol Kobi CO2 [Moles/Vol] 25.6 mmol/L Normal 21.0-32.0 [facility] Comment on above: Performed By: #### L IPID, CMP, TSH ####[facility] [address] [place] [phone]. Marysol Kobi Creatinine [Mass/Vol] 0.61 mg/dL Normal 0.55-1.02 [facility] Comment on above: Performed By: #### L IPID, CMP, TSH ####[facility] [address] [place] [phone]. Marysol Kobi EGFR-AF CANADIAN >60 Normal >=60 [facility] Comment on above: Performed By: #### L IPID, CMP, TSH ####[facility] [address] [place] [phone]. Marysol Peace EGFR-NON AF CANADIAN >60 Normal >=60 [facility] Comment on above: Performed By: #### L IPID, CMP, TSH ####[facility] [address] [place] [phone]. Piedadbre Peace Globulin (S) [Mass/Vol] 3.4 g/dL Normal [facility] Comment on above: Performed By: #### L IPID, CMP, TSH ####[facility] [address] [place] [phone]. Marysol Peace Glucose [Mass/Vol] 149 mg/dL Critically high 74-106 T [facility] Comment on above: Performed By: #### L IPID, CMP, TSH ####[facility] [address]wed[address] [place] [phone]. Marysol Peace Potassium [Moles/Vol] 3.8 mmol/L Normal 3.5-5.1 [facility] Comment on above: Performed By: #### L IPID, CMP, TSH ####[facility] [address] [place] [phone]. Marysol Peace Protein [Mass/Vol] 7.3 g/dL Normal 6.4-8.2 [facility] Comment on above: Performed By: #### L IPID, CMP, TSH ####[facility] [address] [place] [address]Dr. Marysol Peace Sodium [Moles/Vol] 136 mmol/L Normal 136-145 [facility] Comment on above: Performed By: #### L IPID, CMP, TSH ####[facility] [address] [place] [address]Dr. Marysol Peace Urea nitrogen [Mass/Vol] 26.0 mg/dL Critically high 7.0-18.0 [facility] Comment on above: Performed By: #### L IPID, CMP, TSH ####[facility] [address] [place] [address]Dr. Marysol Peace Urea nitrogen/Creatinine [Mass ratio] 42.6 mg/mg Normal [facility] Comment on above: Performed By: #### L IPID, CMP, TSH ####[facility] [address] [place] [address]Dr. Marysol Peace TSHon 09-27-2022 TSH 1.298 uIU/mL Normal 0.358-3.740 [facility] Comment on above: Performed By: #### L IPID, CMP, TSH ####[facility] [address] [place] [address]Dr. Marysol Peace CAILTYN - TSHon 05-02-2022 TSH 2.031 uIU/mL Normal 0.358-3.740 The [facility] Comment on above: Performed By: #### D ATTSH #### [facility] [address] [address] [address] Marysol Peace TSH RANGE SEE BELOW Normal [facility] Comment on above: Result Comment: <0.3 4 UIU/ml HYPERTHYROID 0.34-5.60 UIU/ml EUTHYROID >5.60 UIU/ml HYPOTHYROID Performed By: #### D ATTSH #### [facility] [address] [address] [address] Marysol Peace GLYCOHEMOGLOBIN A1Con 2021 ADA RECOMMENDATION SEE BELOW Normal [facility] Comment on above: Result Comment: ADA RECOMMENDED LIMIT 4.0 - 6.0 ADA THERAPEUTIC TARGET < 7.0 ACTION SUGGESTED > 7.0 Performed By: #### D ATA1C #### [facility] [address] [address] [address] Marysol Peace Glucose [Mass/Vol] 151 mg/dL Normal [facility] Comment on above: Performed By: #### D ATA1C #### [facility] [address] [address] [address] Marysol Peace HbA1c (Bld) [Mass fraction] 6.9 % Critically high 4.5-6.2 [facility] Comment on above: Performed By: #### D ATA1C #### [facility] [address] [address] [address] Marysol Peace XR KNEE RT 4V [...] by: JOSH COOK Date: 2022-02-26 16:36 Normal [facility] XR DEXA BONE DENSITYon 01-18 XR [...] ANDREW MORRIS Date: 2022-01-18 16:32 Normal [facility] CBC AUTO DIFFon 12-06-2021 BASO # 0.0 103/ul Normal 0.0-0.1 [facility] Comment on above: Performed By: #### C BC ####[facility] [address] [place] [address]Dr. Marysol Peace Basophils/100 WBC (Bld) 0.4 % Normal 0.2-2.0 [facility] Comment on above: Performed By: #### C BC ####[facility] [address] [place], [place] [address]Dr. Marysol Peace EO # 0.2 103/ul Normal 0.0-0.7 [facility] Comment on above: Performed By: #### C BC ####[facility] [address] [place], [place] [address]Dr. Marysol Peace Eosinophils/100 WBC (Bld) 2.4 % Normal 0.9-7.0 [facility] Comment on above: Performed By: #### C BC ####[facility] [address] [place], [place] [address]Dr. Marysol Peace Erythrocyte distribution width (RBC) [Ratio] 12.5 % Normal 11.0-15.0 [facility] Comment on above: Performed By: #### C BC ####[facility] [address] [place], [place] [address]Dr. Marysol Peace Hematocrit (Bld) [Volume fraction] 45.6 % Normal 36.0-48.0 [facility] Comment on above: Performed By: #### C BC ####[facility] [address] [place] [address]Dr. Marysol Peace Hemoglobin (Bld) [Mass/Vol] 15.3 g/dL Normal 12.0-16.0 [facility] Comment on above: Performed By: #### C BC ####[facility] [address] [place], [place] [address]Dr. Marysol Peace IG # 0.03 10e3/ul Normal 0.00-0.03 [facility] Comment on above: Performed By: #### C BC ####[facility] [address] [place] [phone] Piedadbre Peace IG % 0.4 % Normal 0.0-0.5 [facility] Comment on above: Performed By: #### C BC ####[facility] [address] [place] [phone] Piedadbre Peace LYMPH # 1.4 103/ul Normal 1.2-3.8 [facility] Comment on above: Performed By: #### C BC ####[facility] [address] [place] [phone] Peace Lymphocytes/100 WBC (Bld) 19.9 % Critically low 20.5-60.0 [facility] Comment on above: Performed By: #### C BC ####[facility] [address] [place] [address]DrLyubov Peace MANUAL DIFF REQ NO Normal [facility] Comment on above: Performed By: #### C BC ####[facility] [address] [place] [phone] Marysol Kobi MCH (RBC) [Entitic mass] 29.5 pg Normal 26.7-34.0 [facility] Comment on above: Performed By: #### C BC ####[facility] [address] [place] [phone] Marysol Kobi MCHC (RBC) [Mass/Vol] 33.6 g/dL Normal 29.9-35.2 [facility] Comment on above: Performed By: #### C BC ####[facility] [address] [place] [phone] Piedadbre Peace MCV (RBC) [Entitic vol] 87.9 fL Normal 81.0-99.0 [facility] Comment on above: Performed By: #### C BC ####[facility] [address] [place] [phone] Peace MONO # 0.8 103/ul Normal 0.3-0.8 [facility] Comment on above: Performed By: #### C BC ####[facility] [address] [place] [phone]. Marysol Peace Monocytes/100 WBC (Bld) 11.8 % Normal 1.7-12.0 [facility] Comment on above: Performed By: #### C BC ####[facility] [address] [place] [phone]. Marysol Peace NEUT # 4.4 103/ul Normal 1.4-6.5 [facility] Comment on above: Performed By: #### C BC ####[facility] [address] [place] [phone]. Marysol Peace Neutrophils/100 WBC (Bld) 65.1 % Normal 43.0-75.0 [facility] Comment on above: Performed By: #### C BC ####[facility] [address] [place] [address]Dr. Marysol Peace Platelet mean volume (Bld) [Entitic vol] 10.9 fL Normal 9.5-13.5 [facility] Comment on above: Performed By: #### C BC ####[facility] [address] [place] [address]Dr. Marysol Peace PLT 187 103/ul Normal 150-450 [facility] Comment on above: Performed By: #### C BC ####[facility] [address] [place] [phone]. Marysol Peace RBC 5.19 106/ul Normal 4.20-5.40 [facility] Comment on above: Performed By: #### C BC ####[facility] [address] [place] [phone]. Marysol Peace WBC 6.8 103/ul Normal 4.0-11.0 [facility] Comment on above: Performed By: #### C BC ####[facility] [address] [place] [phone]. Marysol Peace CT CHEST WO CONon 12-06-2021 [...] by: JULIAN SLAUGHTER Date: 2021-12-06 11:39 Normal [facility] GLYCOHEMOGLOBIN A1Con 2021 ADA RECOMMENDATION SEE BELOW Normal [facility] Comment on above: Result Comment: ADA RECOMMENDED LIMIT 4.0 - 6.0 ADA THERAPEUTIC TARGET < 7.0 ACTION SUGGESTED > 7.0 Performed By: #### A 1C ####[facility] [address] [place] [phone]. Marysol Peace Glucose [Mass/Vol] 137 mg/dL Normal [facility] Comment on above: Performed By: #### A 1C ####[facility] [address] [place], [place] [address]Yo. Marysol Peace HbA1c (Bld) [Mass fraction] 6.4 % Critically high 4.5-6.2 [facility] Comment on above: Performed By: #### A 1C ####[facility] [address] [place], [place] [address]Sc. Marysol Peace LIPID PROFILEon 12-06-2021 CHOL-HDL RATIO NORM SEE BELOW Normal [facility] Comment on above: Result Comment: 3.3 - 4.4 LOW RISK 4.4 - 7.1 AVERAGE RISK 7.1 - 11.0 MODERATE RISK >11.0 HIGH RISK Performed By: #### C MP, TSH, LIPID #### [facility] [address] [address] [address] Marysol Peace Cholesterol [Mass/Vol] 154 mg/dL Normal <=200 [facility] Comment on above: Performed By: #### C MP, TSH, LIPID #### [facility] [address] [address] [address] Marysol Peace Cholesterol in HDL [Mass/Vol] 33 mg/dL Critically low 40-60 [facility] Comment on above: Performed By: #### C MP, TSH, LIPID #### [facility] [address] [address] [address] Marysol Peace Cholesterol in LDL [Mass/Vol] 77.8 mg/dL Normal [facility] Comment on above: Performed By: #### C MP, TSH, LIPID #### [facility] [address] [address] [address] Marysol Peace Cholesterol.total/C holesterol in HDL [Mass ratio] 4.7 {ratio} Normal [facility] Comment on above: Performed By: #### C MP, TSH, LIPID #### [facility] [address] [address] [address] Marysol Peace HDL NORMAL > or = 60 mg/dl - LO W CARDIOVASCULAR RISK <40 mg/dl - HIGH CARDIOVASCULAR RISK Normal [facility] Comment on above: Performed By: #### C MP, TSH, LIPID #### [facility] [address] [address] [address] Marysol Peace LDL CALC NORMAL SEE BELOW Normal [facility] Comment on above: Result Comment: <100 mg/dl OPTIMAL 100 - 129 mg/dl NEAR OR ABOVE OPTIMAL 130 - 159 mg/dl BORDERLINE HIGH 160 - 189 mg/dl HIGH >190 mg/dl VERY HIGH Performed By: #### C MP, TSH, LIPID #### [facility] [address] [address] [address] Marysol Peace Triglyceride [Mass/Vol] 216 mg/dL Critically high <=150 [facility] Comment on above: Performed By: #### C MP, TSH, LIPID #### [facility] [address] [address] [address] Marysol Peace VLDL CALC 43.2 mg/dL Normal [facility] Comment on above: Performed By: #### C MP, TSH, LIPID #### [facility] [id number] Marysol Peace MG MAMM DIAGNOSTIC 3D OMKAR CA Don 12-06-2021 MG MAMM DIAGNOSTIC 3D OMKAR CAD Patient: RENUKA CACERES Exam Date: 12/06/2021 : 1960 Gender:F Ordering : DR SINGH FOWLER D.O. Admission #: [id number] Family : Order #: [id number] CLICK HERE TO VIEW EXAM RADIOLOGY REPORT [...] colon/kidney cancer at age 38. LOCATION: [facility] BREAST COMPOSITION: Heterogeneously dense,which may obscure small [...] Morris M.D. on 12/06/2021 at 10:49 Normal [facility] PROF 14(COMP METB)on 022 Albumin [Mass/Vol] 4.0 g/dL Normal 3.4-5.0 [facility] Comment on above: Performed By: #### C MP, TSH, LIPID #### [facility] [address] [address] [address] Mraysol Peace Albumin/Globulin [Mass ratio] 1.1 {ratio} Normal [facility] Comment on above: Performed By: #### C MP, TSH, LIPID #### [facility] [address] [address] [address] Marysol Peace ALP [Catalytic activity/Vol] 88 U/L Normal 46-116 [facility] Comment on above: Performed By: #### C MP, TSH, LIPID #### [facility] [address] [address] [address] Marysol Peace ALT [Catalytic activity/Vol] 36 U/L Normal 14-59 [facility] Comment on above: Performed By: #### C MP, TSH, LIPID #### [facility] [address] [address] [address] Marysol Peace Anion gap [Moles/Vol] 11.4 mmol/L Normal [facility] Comment on above: Performed By: #### C MP, TSH, LIPID #### [facility] [address] [address] [address] Marysol Peace AST [Catalytic activity/Vol] 18 U/L Normal 15-37 [facility] Comment on above: Performed By: #### C MP, TSH, LIPID #### [facility] [address] [address] [address] Marysol Peace Bilirubin [Mass/Vol] 0.5 mg/dL Normal 0.2-1.0 [facility] Comment on above: Performed By: #### C MP, TSH, LIPID #### [facility] [address] [address] [address] Marysol Peace Calcium [Mass/Vol] 9.5 mg/dL Normal 8.5-10.1 [facility] Comment on above: Performed By: #### C MP, TSH, LIPID #### [facility] [address] [address] [address] Marysol Peace Chloride [Moles/Vol] 102 mmol/L Normal 98-107 [facility] Comment on above: Performed By: #### C MP, TSH, LIPID #### [facility] [address] [address] [address] Marysol Peace CO2 [Moles/Vol] 31.7 mmol/L Normal 21.0-32.0 [facility] Comment on above: Performed By: #### C MP, TSH, LIPID #### [facility] [address] [place] [address] Dr. Marysol Peace Creatinine [Mass/Vol] 0.63 mg/dL Normal 0.55-1.02 [facility] Comment on above: Performed By: #### C MP, TSH, LIPID #### [facility] [address] [place] [address] Dr. Marysol Peace EGFR-AF CANADIAN >60 Normal >=60 [facility] Comment on above: Performed By: #### C MP, TSH, LIPID #### [facility] [address] [place] [address] Dr. Marysol Peace EGFR-NON AF CANADIAN >60 Normal >=60 [facility] Comment on above: Performed By: #### C MP, TSH, LIPID #### [facility] [address] [place] [address] Dr. Marysol Peace Globulin (S) [Mass/Vol] 3.7 g/dL Normal [facility] Comment on above: Performed By: #### C MP, TSH, LIPID #### [facility] [address] [place] [address] Dr. Marysol Peace Glucose [Mass/Vol] 129 mg/dL Critically high 74-106 T [facility] Comment on above: Performed By: #### C MP, TSH, LIPID #### [facility] [address] [place] [address] Dr. Marysol Peace Potassium [Moles/Vol] 5.1 mmol/L Normal 3.5-5.1 [facility] Comment on above: Performed By: #### C MP, TSH, LIPID #### [facility] [address] [place] [address] Dr. Marysol Peace Protein [Mass/Vol] 7.7 g/dL Normal 6.4-8.2 [facility] Comment on above: Performed By: #### C MP, TSH, LIPID #### [facility] [address] [place] [address] Dr. Marysol Peace Sodium [Moles/Vol] 140 mmol/L Normal 136-145 [facility] Comment on above: Performed By: #### C MP, TSH, LIPID #### [facility] [address] [place] [address] Dr. Marysol Peace Urea nitrogen [Mass/Vol] 20.0 mg/dL Critically high 7.0-18.0 [facility] Comment on above: Performed By: #### C MP, TSH, LIPID #### [facility] [address] [place] [address] Dr. Marysol Peace Urea nitrogen/Creatinine [Mass ratio] 31.7 mg/mg Normal [facility] Comment on above: Performed By: #### C MP, TSH, LIPID #### [facility] [address] [place] [address] Dr. Marysol Peace TSHon 12-06-2021 TSH 1.978 uIU/mL Normal 0.358-3.740 [facility] Comment on above: Performed By: #### C MP, TSH, LIPID #### [facility] [address] [place] [address] Dr. Marysol Peace TSH RANGE SEE BELOW Normal [facility] Comment on above: Result Comment: <0.3 4 UIU/ml HYPERTHYROID 0.34-5.60 UIU/ml EUTHYROID >5.60 UIU/ml HYPOTHYROID Performed By: #### C MP, TSH, LIPID #### [facility] [address] [place] [address] Dr. Marysol Peace Social History Date Type Detail Facility Start: 10-20-2021 End: 06-29-2023 Tobacco smoking status Never smoked tobacco (finding) [facility] Start: 03-02-2021 Tobacco smoking status Never [facility] Start: 1960 Sex Assigned At Female [facility] Sex Assigned At Female [facility] Vital Signs Date Time Vital Sign Value Performing Clinician Facility 07-13-2023 12:15-0500 Body height 170.18 cm Singh Ball Other [facility] Other 07-13-2023 12:15-0500 Diastolic blood pressure 80 mm[Hg] Singh Ball Other [facility] Other 07-13-2023 12:15-0500 Systolic blood pressure 135 mm[Hg] Singh Ball Other [facility] Other 07-07-2023 08:30-0500 Body height 170.18 cm Singh Ball Other [facility] Other 07-07-2023 08:30-0500 Body mass index (BMI) [Ratio] 34.83 kg/m2 Singh Ball Other [facility] Other 07-07-2023 08:30-0500 Body weight 100.88 kg Singh Ball Other [facility] Other 07-07-2023 08:30-0500 Diastolic blood pressure 89 mm[Hg] Singh Ball Other [facility] Other 07-07-2023 08:30-0500 Respiratory rate 16 /min Singh Ball Other [facility] Other 07-07-2023 08:30-0500 Systolic blood pressure 152 mm[Hg] Singh Ball Other [facility] Other 06-29-2023 09:36-0500 Body height 162.56 cm DO Singh Ball Work Phone: [facility] 06-29-2023 09:36-0500 Body temperature 98.3 [degF] DO Sinhg Ball Work Phone: [facility] 06-29-2023 09:36-0500 Body weight 91.85 kg DO Singh Ball Work Phone: [facility] 06-29-2023 09:36-0500 Diastolic blood pressure 80 mm[Hg] DO Singh Ball Work Phone: [facility] 06-29-2023 09:36-0500 Heart rate 83 /min DO Singh Ball Work Phone: [facility] 06-29-2023 09:36-0500 Respiratory rate 20 /min DO Singh Ball Work Phone: [facility] 06-29-2023 09:36-0500 SaO2% (BldA) [Mass fraction] 98 % DO Singh Ball Work Phone: [facility] 06-29-2023 09:36-0500 Systolic blood pressure 165 mm[Hg] DO Singh Ball Work Phone: [facility] 03-06-2023 08:30-0400 Body height 170.18 cm Singh Ball Other [facility] Other 03-06-2023 08:30-0400 Body mass index (BMI) [Ratio] 31.01 kg/m2 Singh Ball Other [facility] Other 03-06-2023 08:30-0400 Body weight 89.81 kg Singh Ball Other [facility] Other 03-06-2023 08:30-0400 Diastolic blood pressure 80 mm[Hg] Singh Ball Other [facility] Other 03-06-2023 08:30-0400 Respiratory rate 12 /min Singh Ball Other [facility] Other 03-06-2023 08:30-0400 Systolic blood pressure 152 mm[Hg] Singh Ball Other [facility] Other 12-28-2022 09:30-0400 Body temperature 97.9 [degF] DO Singh Ball Work Phone: [facility] 12-28-2022 09:30-0400 Body weight 90.26 kg DO Singh Ball Work Phone: [facility] 12-28-2022 09:30-0400 Diastolic blood pressure 88 mm[Hg] DO Singh Ball Work Phone: [facility] 12-28-2022 09:30-0400 Heart rate 79 /min DO Singh Ball Work Phone: [facility] 12-28-2022 09:30-0400 Respiratory rate 16 /min DO Singh Ball Work Phone: [facility] 12-28-2022 09:30-0400 SaO2% (BldA) [Mass fraction] 98 % DO Singh Ball Work Phone: [facility] 12-28-2022 09:30-0400 Systolic blood pressure 153 mm[Hg] DO Singh Ball Work Phone: [facility] 11-02-2022 10:30-0400 Body height 170.18 cm Singh Ball Other [facility] Other 11-02-2022 10:30-0400 Body mass index (BMI) [Ratio] 31.38 kg/m2 Singh Ball Other [facility] Other 11-02-2022 10:30-0400 Body weight 90.9 kg Singh Ball Other [facility] Other 11-02-2022 10:30-0400 Diastolic blood pressure 80 mm[Hg] Singh Ball Other [facility] Other 11-02-2022 10:30-0400 Respiratory rate 12 /min Singh Ball Other [facility] Other 11-02-2022 10:30-0400 Systolic blood pressure 136 mm[Hg] Sinhg Ball Other [facility] Other 06-29-2022 08:22-0500 Body height 162.56 cm DO Singh Ball Work Phone: [facility] 06-29-2022 08:22-0500 Body weight 93.7 kg DO Singh Ball Work Phone: [facility] 06-29-2022 08:22-0500 Diastolic blood pressure 87 mm[Hg] DO Singh Ball Work Phone: [facility] 06-29-2022 08:22-0500 Heart rate 87 /min DO Singh Ball Work Phone: [facility] 06-29-2022 08:22-0500 Respiratory rate 20 /min DO Singh Ball Work Phone: [facility] 06-29-2022 08:22-0500 SaO2% (BldA) [Mass fraction] 97 % DO Singh Ball Work Phone: [facility] 06-29-2022 08:22-0500 Systolic blood pressure 157 mm[Hg] DO Singh Ball Work Phone: [facility] 04-13-2022 08:05-0400 Body weight 91.94 kg DO Singh Ball Work Phone: [facility] 04-13-2022 08:05-0400 Diastolic blood pressure 83 mm[Hg] DO Singh Ball Work Phone: [facility] 04-13-2022 08:05-0400 Heart rate 98 /min DO Singh Ball Work Phone: [facility] 04-13-2022 08:05-0400 Respiratory rate 20 /min DO Singh Ball Work Phone: [facility] 04-13-2022 08:05-0400 SaO2% (BldA) [Mass fraction] 96 % DO Singh Ball Work Phone: [facility] 04-13-2022 08:05-0400 Systolic blood pressure 147 mm[Hg] DO Singh Ball Work Phone: [facility] [facility] 01[facility]13-2022 08:26-0400 Body temperature 97.8 [degF] DO Singh Ball Work Phone: [facility] 01-13-2022 08:26-0400 Body weight 91.62 kg DO Singh Ball Work Phone: [facility] 01-13-2022 08:26-0400 Diastolic blood pressure 79 mm[Hg] DO Singh Ball Work Phone: [facility] 01-13-2022 08:26-0400 Heart rate 82 /min DO Singh Ball Work Phone: [facility] 01-13-2022 08:26-0400 Respiratory rate 16 /min DO Singh Ball Work Phone: [facility] 01-13-2022 08:26-0400 SaO2% (BldA) [Mass fraction] 96 % DO Singh Ball Work Phone: [facility] 01-13-2022 08:26-0400 Systolic blood pressure 157 mm[Hg] DO Singh Ball Work Phone: [facility] 10-20-2021 08:57-0400 Body height 162.56 cm MD Thiago Durbin Work Phone: [facility] 10-20-2021 08:57-0400 Body temperature 98 [degF] MD Thiago Durbin Work Phone: [facility] 10-20-2021 08:57-0400 Body weight 95.11 kg MD Thiago Durbin Work Phone: [facility] 10-20-2021 08:57-0400 Diastolic blood pressure 78 mm[Hg] MD Thiago Durbin Work Phone: [facility] 10-20-2021 08:57-0400 Heart rate 87 /min MD Thiago Durbin Work Phone: [facility] 10-20-2021 08:57-0400 Respiratory rate 20 /min MD Thiago Durbin Work Phone: [facility] 10-20-2021 08:57-0400 SaO2% (BldA) [Mass fraction] 96 % MD Thiago Durbin Work Phone: [facility] 10-20-2021 08:57-0400 Systolic blood pressure 160 mm[Hg] MD Thiago Durbin Work Phone: [facility] Clinical Notes 03-16-2021 to 07-13-2023 Note [...] exercise to achieve/maint ain a normal BMI. [employer] Other [id number] Evaluation note* Encounter Date Diagnosis Assessment Notes [...] index [BMI] 31.0-31.9, adult (ICD-10 - Z68.31) [employer] Other 11-21-2023 Evaluation note* Encounter Date Diagnosis Assessment Notes Treatment Notes Treatment Clinical Notes May, Primary hypertension (ICD-10 - I10) [employer] Other 11-19-2023 Evaluation note* Encounter Date Diagnosis Assessment Notes Treatment Notes Treatment Clinical Notes May, Type 2 diabetes mellitus with hyperglycemia, without long-term current use of insulin (ICD-10 - E11.65) May, Primary hypertension (ICD-10 - I10) [employer] Other 08-21-2023 Evaluation note* Encounter Date Diagnosis [...] index [BMI] 31.0-31.9, adult (ICD-10 - Z68.31) [employer] Other 06-30-2023 Evaluation note* Encounter Date Diagnosis Assessment Notes Treatment Notes Treatment Clinical Notes Dec, Essential hypertension (ICD-10 - I10) [employer] Other 06-14-2023 Progress note Author Chiara Hoffmann [facility] December 28, 2022 9:59am Note Date/Time December 28, 2022 9:34 am [facility] [place] [address] Hem/Onc Follow Up Note - OP Signed Patient: Renuka Caceres MR#: [id number] : 1960 Acct:[id number] Age/Sex: 62 / F Type: REG RCR [...] was refilled today. [facility] showed heterogeneously dense breasts but [...] regularly. Last DEXA scan was normal at [facility] 01/18/2022 will be due in 1 year. [...] on letrozole therapy for T2 N0 M0 ER/NJ positive breast cancer, status postlumpectomy in February [...] on self-exam. We reviewed her mammogram from [facility] performed 10/06/2021 which returned with heterogeneously dense [...] this month and has these done at [facility]. Eliazar get this record once it's completed. [...] of 6 lymph nodes positive. ER and NJ was positive, H ER 2 -. [employer] genetic testing was negative for BRCA 1 and 2. Oncotype DX showed low risk disease. She was started on radiation March 2021. Her family doctor is Dr. Juan Fowler and she was operated on by Dr. Salazar Kimble. 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 Did not tolerated/t hot flashes, so switched [...] labs for review - Impressions Imaging from [facility] reviewed: 11/28/2022: 3D diagnostic mammogram Breast composition: [...] of May [address] Lopes at [facility]. 07/20/2021: Stopped anastrozole due to severe hot [...] have her mammogram done this month at [facility] and will have results sent to us. [...] for coordination of care (as documented) and ptql-xk-zqiu counseling of patient and/or family. Dictated By: Chiara Hoffmann MD DD/ Signed By: <Electronically signed by MD Chiara Hoffmann> 12/28/22 0226 [facility] Work Phone: 1([phone]) 210-396805-19-2023 NoteChief Complaint consultation for screening colonoscopy HPI [...] Primary malignant neoplasm of (more content not included)...[facility]:Result Comment: Electronically Signed By: SANTOSH DUBOSE, Salazar Quintero\.br\Date and Time Signed: 12/02/22 14:59 [id number] Reason for referral (narrative)* Reason 12/02/22 Referral for screening colonoscopy in asymptomatic high risk patient. Diagnosis 1 Encounter for screen ing colonoscopy (Z12.11) Referral Organization [facility] linjosafat Referring Provider First Name Singh Referring Provider Last Name Keo Referring Provider Specialty Internal Me dicine Referred Organization [facility] Referred Provider Salazar Muniz Referred Address [address] [place] [phone] Referred Provider Specialty Surgery Referral Priority Routine Referral Appointment Date 2022-12-02 General Notes Kira Tran 12:38:54 PM >received today Kira Tran 11/03/2022 12:41:54 PM >notes locked, attachments made, referral faxed Kira Tran 11/10/2022 11:14:17 AM >faxed first attempt letter Kira Tran 11/14/2022 04:13:52 PM >received fax with appt date Kira Tran 12/08/2022 06:10:37 AM >notes in chart and reviewed. closing referral Clinical Notes [id number] [employer] Other 04-19-2023 Evaluation note* Encounter Date Diagnosis [...] to family hx of CRC. Recommend colonoscopy. [employer] Other 03-06-2023 Evaluation note* Encounter Date Diagnosis Assessment Notes Treatment Notes Treatment Clinical Notes Sep, Wellness examination (ICD-10 - Z00.00) [employer] Other 03-03-2023 Evaluation note* Encounter Date Diagnosis Assessment Notes Treatment Notes Treatment Clinical Notes Sep, Acute non-recurrent maxillary sinusitis (ICD-10 - J01.00) Instructed to use Robitussin or Mucinex for cough, saline or Flonase NS for congestion, Tylenol for pain and fever. Sep, Encounter by telehealth for suspected COVID-19 (ICD-10 - Z20.822) Aware of quarantine guidelines. Retest in 2 days if symptoms worsen [employer] Other 12-14-2022 Progress note Author Giovanna Shelton [facility] Alonzo 14th, 2022 9:03am Note Date/Time June 29, 2022 8:52am [facility] [place] [address] Hem/Onc Follow Up Note - OP Signed Patient: Renuka Caceres MR#: [id number] : 1960 Acct:[id number] Age/Sex: 61 / F Type: REG RCR [...] on letrozole therapy for T2 N0 M0 ER/NJ positive breast cancer, status postlumpectomy in February [...] on self-exam. We reviewed her mammogram from [facility] performed 10/06/2021 which returned with heterogeneously dense breasts but no significant suspicious abnormalities and postsurgical changes in the right upper inner quadrant. She has not had baseline DEXA scan and we ordered this today. Advised to start calcium and vitamin D until DEXA findings which she will be contacted with afterreview. Next follow-up with nurse practitioner in 3 months, 6 months with me. Oumar complexity visit over 25 minutes for [...] this month and has these done at [facility]. Eliazar get this record once it's completed. [...] of 6 lymph nodes positive. ER and NJ was positive, H ER 2 -. [employer] genetic testing was negative for BRCA 1 and 2. Oncotype DX showed low risk disease. She was started on radiation March 2021. Her family doctor is Dr. Juan Fowler and she was operated on by Dr. Salazar Kimble. KOI: 60-year-old post-menopausal female- had menopause at age [...] stage T2 N0 M0 invasive lobular carcinoma, Fries grade 2 with associated ductal carcinoma in [...] was started on Arimidex May 2021 (at [facility]). Did not tolerated/t hot flashes, so switched [...] PO BID 03/11/21 [History Confirmed 06/29/22] hyaluronic kxlktn-hipqhjfqx-hdxq vera extract topical gel ([employer]lexRx topical gel) [...] stage T2 N0 M0 invasive lobular carcinoma, Fries grade 2 with associated ductal carcinoma in [...] of May [address] Lopes at [facility]. 07/20/2021: Stopped anastrozole due to severe hot [...] have her mammogram done this month at [facility] and will have results sent to us. [...] for coordination of care (as documented) and iubr-wi-jjwk counseling of patient and/or family. Dictated By: Giovanna Shelton APRN DD/ 0846 Signed By: <Electronically signed by YEFRI Shelton> 06/29/22 0903 [facility] Work Phone: 1([phone]) 501-398309-28-2022 Progress note Author Giovanna Shelton [facility] April 13, 2022 9:15am Note Date/Time April 13, 2022 8:39am [facility] [place] [facility] [place] [id number] Hem/Onc Follow Up Note - OP Signed Patient: Renuka Caceres MR#: [id number] : 1960 Acct:[id number] Age/Sex: 61 / F Type: REG RCR [...] on letrozole therapy for T2 N0 M0 ER/NJ positive breast cancer, status postlumpectomy in February [...] on self-exam. We reviewed her mammogram from [facility] performed 10/06/2021 which returned with heterogeneously dense breasts but no significant suspicious abnormalities and postsurgical changes in the right upper inner quadrant. She has not had baseline DEXA scan and we ordered this today. Advised to start calcium and vitamin D until DEXA findings which she will be contacted with afterreview. Next follow-up with nurse practitioner in 3 months, 6 months with ut. Moderate complexity visit over 25 minutes for [...] this month and has these done at [facility]. Wewill get this record once it's completed. [...] of 6 lymph nodes positive. ER and NJ was positive, H ER 2 -. [employer] genetic testing was negative for BRCA 1 and 2. Oncotype DX showed low risk disease. She was started on radiation March 2021. Her family doctor is Dr. Juan Fowler and she was operated on by Dr. Salazar Kimble. KOI: 60-year-old post-menopausal female- had menopause at age [...] was started on Arimidex May 2021 (at [facility]). Did not tolerated/t hot flashes, so switched [...] PO BID 03/11/21 [History Confirmed 04/13/22] hyaluronic jlcpwg-wfaboubwj-obxg vera extract topical gel (RadiaPlexRx topical gel) [...] of May [address] Lopes at [facility]. 07/20/2021: Stopped anastrozole due to severe hot [...] have her mammogram done this month at [facility] and will have results sent to us. [...] for coordination of care (as documented) and czgn-bo-bzci counseling of patient and/or family. Dictated By: Giovanna Shelton APRN DD/ 5 Signed By: <Electronically signed by YEFRI Shelton> 04/13/22 0915 [facility] Work Phone: 1(323) 683-241309-01-2022 Evaluation note* Encounter Date Diagnosis Assessment Notes [...] as well as use of voltaren gel. [employer] Other 06-30-2022 Progress note Author Chiara Hoffmann [facility] January 13, 2022 12:36pm Note Date/Time January 13, 2022 8:34 am [facility] [place] [address] Hem/Onc Follow Up Note - OP Signed Patient: Renuka Caceres MR#: [id number] : 1960 Acct:[id number] Age/Sex: 61 / F Type: REG RCR [...] on letrozole therapy for T2 N0 M0 ER/NJ positive breast cancer, status postlumpectomy in February [...] on self-exam. We reviewed her mammogram from [facility] performed 10/06/2021 which returned with heterogeneously dense breasts but no significant suspicious abnormalities and postsurgical changes in the right upper inner quadrant. She has not had baseline DEXA scan and we ordered this today. Advised to start calcium and vitamin D until DEXA findings which she will be contacted with afterreview. Next follow-up with nurse practitioner in 3 months, 6 months with ut. Moderate complexity visit over 25 minutes for [...] this month and has these done at [facility]. Eliazar get this record once it's completed. [...] of 6 lymph nodes positive. ER and NJ was positive, H ER 2 -. [employer] genetic testing was negative for BRCA 1 and 2. Oncotype DX showed low risk disease. She was started on radiation March 2021. Her family doctor is Dr. Juan Fowler and she was operated on by Dr. Salazar Kimble. KOI: 60-year-old post-menopausal female- had menopause at age [...] was started on Arimidex May 2021 (at [facility]). Did not tolerated/t hot flashes, so switched [...] Negative for environmental allergies and food allergies. [facility] - History Attestation statement: The following information [...] PO BID 03/11/21 [History Confirmed 01/13/22] hyaluronic yeabuw-bgirbsfif-czdj vera extract topical gel ([employer]lexRx) 1 applicTOPICAL [...] stage T2 N0 M0 invasive lobular carcinoma, Fries grade 2 with associated ductal carcinoma in [...] stage T2 N0 M0 invasive lobular carcinoma, Fries grade 2 with associated ductal carcinoma in [...] of May [address] Lopes at [facility]. 07/20/2021: Stopped anastrozole due to severe hot [...] have her mammogram done this month at [facility] and will have results sent to us. [...] for coordination of care (as documented) and sypu-oh-dmnb counseling of patient and/or family. Dictated By: Chiara Hoffmann MD DD/ 0832 Signed By: <Electronically signed by MD Chiara Hoffmann> 01/13/22 1236 [facility] Work Phone: [phone]) 652-811206-30-2022 Progress note Author Darshan Solomon [facility] January 13, 2022 9:17am Note Date/Time January 13, 2022 8:59 am [facility] [place] [address] Rad Onc Follow Up Note - OP Signed Patient: Renuka Caceres MR#: [id number] : 1960 Acct:[id number] Age/Sex: 61 / F Type: REG RCR [...] pathological stage pT2 pN0 M0, ER positive, NJ positive and HER-2/rikki negative, stage Ib. Patient [...] stage T2 N0 M0 invasive lobular carcinoma, Fries grade 2with associated ductal carcinoma in situ [...] by Darshan Solomon MD> 01/13/22 0917 [facility] Work Phone: [phone]) 233-704206-19-2022 NotePROCEDURE: XR FINGER MIN 2 VIEWS HISTORY: [...] Electronically authenticated by: ANDREW MORRIS Date: 2022-01-02 10:32[facility]04-06-2022 Progress note Author Giovanna Shelton [facility] October 20, 2021 12:49pm Note Date/Time October 20, 2021 9:21 am [facility] at [address] [address] Hem/Onc Follow Up Note - OP Signed Patient: Renuka Caceres MR#: [id number] : 1960 Acct:[id number] Age/Sex: 60 / F Type: REG RCR [...] this month and has these done at [facility]. Eliazar get this record once it's completed. [...] of 6 lymph nodes positive. ER and NJ was positive, H ER 2 -. [employer] genetic testing was negative for BRCA 1 and 2. Oncotype DX showed low risk disease. She was started on radiation March 2021. Her family doctor is Dr. Juan fowler and she was operated on by Dr. Salazar Kimble. KOI: 60-year-old post-menopausal female- had menopause at age [...] was started on Arimidex May 2021 (at [facility]). Did not tolerated/t hot flashes, so switched to letrozole 08/11/2021 -- Will continue letrozole for 5 years (May 2026) [facility] - Medical History Medical History: Medical History [...] PO BID 03/11/21 [History Confirmed 10/20/21] hyaluronic aixbww-tmpdqbrwp-lggi vera extract topical gel ([employer]Rx) 1 applicTOPICAL [...] stage T2 N0 M0 invasive lobular carcinoma, Fries grade 2 with associated ductal carcinoma in [...] of May [address] Lopes at [facility]. 07/20/2021: Stopped anastrozole due to severe hot [...] have her mammogram done this month at [facility] and will have results sent to us. [...] for coordination of care (as documented) and racs-nq-qtom counseling of patient and/or family. Dictated By: Giovanna Shelton APRN DD/ 0 Signed By: <Electronically signed by YEFRI Shelton> 10/20/21 1249 [facility] Work Phone: 1([phone]) 521-146601-04-2022 Progress note Author Daniel Lopes [facility] July 20, 2021 10:06am Note Date/Time July 20, 2021 9: 54am [facility] [place] [address] Hem/Onc Follow Up Note - OP Signed Patient: Renuka Caceres MR#: [id number] : 1960 Acct:[id number] Age/Sex: 60 / F Type: REG RCR [...] of 6 lymph nodes positive. ER and NJ was positive, H ER 2 -. [employer] [...] PO BID 03/11/21 [History Confirmed 07/20/21] hyaluronic deszom-vptzjivhl-ymei vera extract topical gel ([employer]) 1 applicTOPICAL [...] for coordination of care (as documented) and uipu-qm-swou counseling of patient and/or family. Dictated By: Daniel Lopse MD DD/ 0954 Signed By: <Electronically signed by MD Daniel Lopes> 07/20/21 1797 [facility] Work Phone: 1(834) 928-241912-09-2021 Progress note Author Thiago Durbin [facility] June 24, 2021 10:35am Note Date/Time June 24, 2021 1 0:26am [facility] [place] [address] Rad Onc Follow Up Note - OP Signed Patient: Renuka Caceres MR#: [id number] : 1960 Acct:[id number] Age/Sex: 60 / F Type: REG RCR Copies to: DO Daniel Calvert MD Michael R Nill, MD FACS~ Subjective - Service Date/Time Date: 06/24/21 Time: 10:15 - Diagnosis Invasive lobular carcinoma of the upper medial quadrant of the right breast, grade 1 with associated DCIS and LCIS, pathological stage pT2 pN0 M0, ER positive, NJ positive and HER-2/rikki negative, stage Ib. - [...] started on Arimidex last week by Dr. Eckert she returned today for her first post [...] pathological stage pT2 pN0 M0, ER positive, NJ positive and HER-2/rikki negative, stage Ib. Assessment [...] quadrant, stage pT2 pN0 M0, ER positive, NJ positive and HER-2 negative, stage Ib had [...] than 30 minutes I spent 20 minutes kivb-io-fruc time with this patient and more than [...] signed by Thiago Durbin MD> 06/24/21 1035 [facility] Work Phone: 1(442) 478-760909-21-2021 Progress note Author Daniel Lopes [facility] April 06, 2021 9:12am Note Date/Time April 06, 2021 9:10am [facility] [place] [address] Hem/Onc Follow Up Note - OP Signed Patient: Renuka Caceres MR#: [id number] : 1960 Acct:[id number] Age/Sex: 60 / F Type: REG RCR [...] today and starting radiation. She is from [facility] and will follow up with me in 2 months to start adjuvant radiationtherapy. This is a very nice 60-year-old female with a lobular carcinoma of the breast who I [facility]. Oncotype DX was done which showed lowrisk disease and no indications for chemotherapy. Because of strong family history, we did do [employer] genetic testing which was negative. She will be getting radiation simulation today April 06, 2021 and then follow-up with me in 2 months to start adjuvant hormonal therapy at [facility]. Subjective/ROS - Narrative: Negative review of systems today [facility] - Medical History Medical History: Medical History [...] and see me in 2 months in [facility] to start adjuvant hormonal therapy with an aromatase similar for 5 years. - Time with Patient Coordination of Care & Counseling Time: Greater than 50% of time spent with patient was for coordination of care (as documented) and jreb-ih-ebto counseling of patient and/or family. Dictated By: Daniel Lopes MD DD/ 6 Signed By: <Electronically signed by MD Daniel Lopes> 04/06/21911 [facility] Work Phone: 1([phone]) 130-238008-31-2021 Consult note Author Thiago Durbin [facility] March 16, 2021 3:14pm Note Date/Time March 12, 2021 11 :51am [facility] [place] [address] Rad Onc Consult Note - OP Signed with Addenda Patient: Renuka Caceres MR#: [id number] : 1960 Acct:[id number] Age/Sex: 60 / F Type: REG RCR Copies to: DO Daniel Calvert MD Michael R Nill, MD FACS~ ADDENDUM1 Dr. Lopes is ordering her genetic testing and we shall await the report of thegenetic testing prior to initiating her right breast radiation therapy treatments. Addendum Dictated By: Thiago Durbin MD Addendum Signed By: 03/16/211513 Addendum Cosigned By: DD/ TD/TT: 03/16/21 HPI - Service Date/Time Date: 03/12/21 Time: 12:00 Diagnosis: Invasive lobular carcinoma of the upper medial quadrant of the right breast, grade 1 with tubular differentiation, pathological stage pT2 pN0 M0, ER positive, NJ positive and HER-2/rikki negative, stage Ib. Chief [...] stage T2 N0 M0 invasive lobular carcinoma, Fries grade 2 with associated ductal carcinoma in [...] pathological stage pT2 pN0 M0, ER positive, NJ positive and HER-2/rikki negative, stage Ib. Assessment [...] quadrant, stage pT2 pN0 M0, ER positive, NJ positive and HER-2 negative, stage Ib had [...] Dr. Lopes's care as her ER and NJ receptors are strongly positive. Total Time Spent with Patient: Greater than 30 minutes I spent 50 minutes ektw-zh-pchs time with this patient and more than [...] signed by Thiago Durbin MD> 03/12/21 1422 [facility] Work Phone: Evaluation + Plan note No data available for this section [facility] Diagnosis Onset Date Resolution Status Malignant neoplasm of upper- inner quadrant of right female breast acute [facility] Work Phone: Evaluation note* Diagnosis Onset Date Resolution Status Malignant neoplasm of upper- inner quadrant of right female breast chronic Osteoporosis screening [facility] Work Phone: Evaluation note* Diagnosis Onset Date Resolution Status Encounter for monitoring aromatase inhibitor therapy chronic Malignant neoplasm of upper- inner quadrant of right female breast chronic Osteoporosis screening [facility] Work Phone: Evaluation noteNo [facility] [employer] Other Evaluation note* Diagnosis Onset Date Resolution Status Diabetes mellitus type 2, co ntrolled, without complications chronic Encounter for monitoring aromatase inhibitor therapy chronic Malignant neoplasm of upper- inner quadrant of right female breast chronic Osteoporosis screening [facility] Pulmonary nodule less than 6 mm determined by computed tomography of lung chronic [facility] Work Phone: History general Narrative - Reported* Type Description Date Medical History Hypertension Medical History diabetes mallitus Medical History breast cancer Surgical History tonsillectomy Surgical History C section Surgical History left ORIF by Dr. Aleman [employer] Other [employer] general Narrative - Reported* Type Description Date [...] Surgical History left ORIF by Dr. Aleman [employer] Other [employer] general Narrative - Reported* Type Description Date [...] by Dr. Aleman Hospitalization History see surgical [facility] Other [employer] general Narrative - Reported* Type Description Date [...] History Colonoscopy 12/2022 Hospitalization History see surgical [facility] Other history general Narrative - Reported* Type Description Date [...] Colonoscopy 12/2022 Hospitalization History see surgical hx [employer] Other Hospital Discharge instructions No data available for this section [facility] Author Giovanna Shelton [facility] April 13, 2022 9:15am Note Date/Time April 13, 2022 8:39am [facility] [place] [id number] Hem/Onc Follow Up Note - OP Signed Patient: Renuka Caceres MR#: [id number] : 1960 Acct:[id number] Age/Sex: 61 / F Type: REG RCR [...] on letrozole therapy for T2 N0 M0 ER/NJ positive breast cancer, status postlumpectomy in February [...] on self-exam. We reviewed her mammogram from [facility] performed 10/06/2021 which returned with heterogeneously dense breasts but no significant suspicious abnormalities and postsurgical changes in the right upper inner quadrant. She has not had baseline DEXA scan and we ordered this today. Advised to start calcium and vitamin D until DEXA findings which she will be contacted with afterreview. Next follow-up with nurse practitioner in 3 months, 6 months with ut. Oumar complexity visit over 25 minutes for [...] this month and has these done at [facility]. Weanita get this record once it's completed. -- [...] of 6 lymph nodes positive. ER and NJ was positive, H ER 2 -. [facility] genetic testing was negative for BRCA 1 and 2. Oncotype DX showed low risk disease. She was started on radiation March 2021. Her family doctor is Dr. Juan Fowler and she was operated on by Dr. Salazar Kimble. KOI: 60-year-old post-menopausal female- had menopause at age [...] stage T2 N0 M0 invasive lobular carcinoma, Fries grade 2 with associated ductal carcinoma in [...] was started on Arimidex May 2021 (at [facility]). Did not tolerated/t hot flashes, so switched [...] PO BID 03/11/21 [History Confirmed 04/13/22] hyaluronic actego-lerlcngak-puei vera extract topical gel (RadiaPlexRx topical gel) [...] of May [address] Lopes at [facility]. 07/20/2021: Stopped anastrozole due to severe hot [...] have her mammogram done this month at [facility] and will have results sent to us. [...] for coordination of care (as documented) and mars-wy-ghjk counseling of patient and/or family. Dictated By: Giovanna Shelton APRN DD/ 5 Signed By: <Electronically signed by YEFRI Shelton> 04/13/22 0915 [facility] Work Phone: Progress note Author Giovanna Shelton [facility] June 29, 2022 9:03am Note Date/Time June 29, 2022 8:52am [facility] at [place] [id number] Hem/Onc Follow Up Note - OP Signed Patient: Renuka Caceres MR#: [id number] : 1960 Acct:[id number] Age/Sex: 61 / F Type: REG RCR [...] on letrozole therapy for T2 N0 M0 ER/NJ positive breast cancer, status postlumpectomy in February [...] on self-exam. We reviewed her mammogram from [facility] performed 10/06/2021 which returned with heterogeneously dense [...] this month and has these done at [facility]. Kishorwill get this record once it's completed. -- [...] of 6 lymph nodes positive. ER and NJ was positive, H ER 2 -. [employer] genetic testing was negative for BRCA 1 and 2. Oncotype DX showed low risk disease. She was started on radiation March 2021. Her family doctor is Dr. Juan Fowler and she was operated on by Dr. Salazar Kimble. KOI: 60-year-old post-menopausal female- had menopause at age [...] was started on Arimidex May 2021 (at [facility]). Did not tolerated/t hot flashes, so switched [...] PO BID 03/11/21 [History Confirmed 06/29/22] hyaluronic flltql-uwuzolurd-uakm vera extract topical gel (RadiaPlexRx topical gel) [...] stage T2 N0 M0 invasive lobular carcinoma, Fries grade 2 with associated ductal carcinoma in [...] stage T2 N0 M0 invasive lobular carcinoma, Fries grade 2 with associated ductal carcinoma in [...] of May [address] Lopes at [facility]. 07/20/2021: Stopped anastrozole due to severe hot [...] have her mammogram done this month at [facility] and will have results sent to us. [...] for coordination of care (as documented) and ogsd-xq-qtrh counseling of patient and/or family. Dictated By: Giovanna Shelton APRN DD/ [id number] Signed By: <Electronically signed by YEFRI Shelton> 06/29/22 0903 [facility] Work Phone: Progress note Author Chiara Hoffmann [facility] December 28, 2022 9:59am Note Date/Time December 28, 2022 9:34 am [facility] [place] [address] Hem/Onc Follow Up Note - OP Signed Patient: Renuka Caceres MR#: [id number] : 1960 Acct:[id number] Age/Sex: 62 / F Type: REG RCR [...] was refilled today. Her mammogramwas performed at [facility] on 11/28/2022 showed heterogeneously dense breasts but [...] regularly. Last DEXA scan was normal at [facility] 01/18/2022 will be due in 1 year. [...] on letrozole therapy for T2 N0 M0 ER/NJ positive breast cancer, status postlumpectomy in February [...] on self-exam. We reviewed her mammogram from [facility] performed 10/06/2021 which returned with heterogeneously dense breasts but no significant suspicious abnormalities and postsurgical changes in the right upper inner quadrant. She has not had baseline DEXA scan and we ordered this today. Advised to start calcium and vitamin D until DEXA findings which she will be contacted with afterreview. Next follow-up with nurse practitioner in 3 months, 6 months with ut. Moderate complexity visit over 25 minutes for [...] this month and has these done at [facility]. Wejeannell get this record once it's completed. -- [...] of 6 lymph nodes positive. ER and NJ was positive, H ER 2 -. [facility] genetic testing was negative for BRCA 1 and 2. Oncotype DX showed low risk disease. She was started on radiation March 2021. Her family doctor is Dr. Juan Fowler and she was operated on by Dr. Salazar Kimble. 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 Did not tolerated/t hot flashes, so switched [...] Negative for environmental allergies and food allergies. [facility] - History Attestation statement: The following information [...] labs for review - Impressions Imaging from [facility] reviewed: 11/28/2022: 3D diagnostic mammogram Breast composition: [...] stage T2 N0 M0 invasive lobular carcinoma, Fries grade 2 with associated ductal carcinoma in [...] of May [address] Lopes at [facility]. 07/20/2021: Stopped anastrozole due to severe hot [...] have her mammogram done this month at [facility] and will have results sent to us. [...] for coordination of care (as documented) and zvez-us-tagt counseling of patient and/or family. Dictated By: Chiara Hoffmann MD DD/ Signed By: <Electronically signed by MD Chiara Hoffmann> 12/28/22 0959 [facility] Work Phone: Reason for referral (narrative)* Reason Referral for screeni ng colonoscopy in asymptomatic high risk patient. Diagnosis 1 Encounter for screen ing colonoscopy (Z12.11) Referral Organization [facility] Keo baker Referring Provider First Name Singh Referring Provider Last Name Keo Referring Provider Specialty Internal [place] humberto Referred Provider Salazar Muniz Referred Provider Specialty Surgery Referral Priority Routine [employer] Other Chief Complaint and Reason for Visit [...] by computed tomography of lung Family History No Family History Records Found Relationship Condition Age at Onset Recorded Date/T mary alice sister No pertinent family history Unknown family member No pertinent family history Unknown Advance Directives No Advanced Directives Records Found Advance Directive Response Recorded Date/ Time Advance Directives No March 3:52pm Advance Directive Response Recorded Date/ Time Advance Directives No March 2:52pm Summary Purpose Additional Source Comments Care Teams (unrecognized sec tion and content) Team Status: Active Member Role Status Dates Thiago Durbin MD Attending Provider Active Singh Fowler , DO Primary Care Provider [...] (unrecogniz ed section and content) Right Knee [phone] COVID negative, possible sinus infectionNo InformationNo InformationRefill6 MONTH CHECK UPLab ResultsRefillNo InformationNo Information4 month Follow upNo InformationCT scan6 MONTH CHECK UPLab ResultsNo InformationNo Information4 month Follow upsore throat, cough , testing for COVID INFORMATION SOURCE (unrecogn ized section and content) DATE CREATED AUTHOR 11/29/[address] [facility] DATE CREATED AUTHOR AUTHOR'S ORGANIZ ATION 01/13/2023 [facility] DATE CREATED AUTHOR AUTHOR'S ORGANIZ ATION 01/04/2024 [facility] FOR RECORDS PERTAINING TO PATIENTS WHO ARE [...] BE BASED ON THE PRIMARY CLINICAL RECORDS. [facility] [employer] provides no warranty or guarantee of the accuracy or completeness of information in this document.
== END 2024-01-22 08:54 | disposition home or self-care (01) ==
LOC: RAD 08:53
PROVIDERS: PCP Internal Medicine
DX: Z51.81 Encounter for therapeutic drug level monitoring (principal); Z13.820 Encounter for screening for osteoporosis; Z79.811 Long term (current) use of aromatase inhibitors; C50.911 Malignant neoplasm of unspecified site of right female breast
CPT/HCPCS: 77080

== ENCOUNTER 2025-02-16 20:23 | Emergency (ER) | payer MEDICARE, SELFPAY ==
[2025-02-16 20:32] VITALS: BP 166/91; PULSE 92; TEMP 36.8; O2SAT 98; BMI 30.9
--- OUTSIDE RECORDS SUMMARY | 2025-02-16 20:34 | XMS_ITS | CCD ---
Demographics Address [address] [place] [address] Preferred Language en Marital Status Single Yazidism Affiliation Unknown Race White Ethnic Group Not or Lati no Author Organization [facility] Care Team Providers Care Kennel Operator Name Role Phone SINGH FOWLER Primary Care Physician MD Thiago Durbin Attending Provider [phone] DO Singh Fowler Primary Care Provider MD Daniel Lopes Referring Provider DO Singh Fowler Primary Care Provider MD Daniel Lopes Referring Provider Unavailable MD Chiara Hoffmann Attending Provider [phone] Vee Wadsworth Unavailable DO Singh Fowler Primary Care Provider MD Naga Acuna Attending Provider [phone] MD Daniel Lopes Referring Provider Unavailable MD Chiara Hoffmann Attending Provider DO Singh Fowler Primary Care Provider [phone] MD Daniel Lopes Referring Provider Unavailable MD Chiara Hoffmann Attending Provider [phone] Singh Fowler Unavailable Sydney Mayes Unavailable DR CHIARA HOFFMANN Attending Unavailable ANNE MARIE, DR CHIARA Monaco Admitting Unavailable KEO, DR WINTERS Primary Care Unavailable MATEUSZ, DR ANDREW Quintero Consulting Unavailable HARSHAD HUDSON Attending Unavailable CANDE Mcarthur, HARSHAD Admitting Unavailable KEO, DR WINTERS Primary Care Unavailable CANDE ., HARSHAD Consulting Unavailable CANDE ., HARSHAD Consulting Unavailable CANDE ., HARSHAD Attending Unavailable CANDE ., HARSHAD Admitting Unavailable KEO, DR WINTERS Primary Care Unavailable JOSH COOK Consulting Unavailable KEO, DR WINTERS Primary Care [...] Unavailable ZIEBER, DR ANDREW Quintero Consulting Unavailable ANNE MARIE, DR CHIARA Monaco Attending Unavailable ANNE MARIE, DR CHIARA Monaco Admitting Unavailable BALL, DR WINTERS Primary Care Unavailable ANNE MARIE, DR CHIARA Monaco Consulting Unavailable BALL, DR WINTERS Primary Care Unavailable BALL, DR WINTERS Consulting Unavailable BALL, DR WINTERS Attending Unavailable BALL, DR WINTERS Admitting Unavailable WEST, DR JULIAN Mendez Consulting Unavailable ZIEBER, DR ANDREW Quintero Consulting Unavailable ANNE MARIE, DR CHIARA Monaco Consulting Unavailable BALL, DR WINTERS Primary Care Unavailable MISC, DR CODY Consulting Unavailable MISC, DR CODY Attending Unavailable MISC, DR CODY Admitting Unavailable ZIEBER, DR ANDREW Quintero Consulting Unavailable BALL, DR WINTERS Primary Care Unavailable HOY ., DR GARZA Consulting Unavailable HOY ., DR GARZA Attending Unavailable HOY ., DR GARZA Admitting Unavailable Keo, DO Winters Primary Care Provider [phone] MD Daniel Lopes Referring Provider Unavailable MD Chiara Hoffmann Attending Provider [phone] Salazar MUNIZ R Attending Unavailable NILSalazar Escobedo R Attending Unavailable DO Singh Fowler Primary Care Provider [phone] MD Daniel Lopes Referring Provider Unavailable MD Chiara Hoffmann Attending Provider [phone] Singh Fowler DO Primary Care Provider Singh Fowler DO Attending Provider [phone] Mahesh Ferrari APRN Attending Provider [phone] Daniel Lopes MD Referring Provider Unavailable Chiara Hoffmann MD Attending Provider Luc Bray DO Attending Provider Singh Fowler Primary Care Unavailable Jesus Brayin A Admitting Unavailable Jesus Brayin A Attending Unavailable Singh Fowler Primary Care Unavailable Jesus Brayin A Admitting Unavailable Jesus Brayin A Attending Unavailable Chiara Hoffmann Attending Unavailable Singh Fowler Primary Care Unavailable Daniel Lopes Referring Unavailable Chiara Hoffmann Admitting Unavailable Allergies Allergy Classification Reported Allergen(s) Allergy Type Date of Onset Reaction(s) Facility (2 sources) Sulfonamides (Antibiotic); Translations: [sulfa drugs] Drug allergy Eruption of skin (disorder) [facility] (7 sources) Sulfonamides (Antibiotic); Translations: [Sulfa (Sulfonamide Antibiotics)] Allergy to substance 10-21-19 22 Itching [facility] (1 source) sulfaSALAzine Drug Allergy Unknown [facility] Other (18 sources) Substance with sulfonamide structure and antibacterial mechanism of action (substance) Drug allergy Unknown [facility] Other (1 source) Sulfonamides (Antibiotic) Drug allergy (disorder) [facility] (1 source) Wheat preparation Drug Allergy 06-17-20 21 [facility] Medications Current Medications Medication Drug Class(es) Dates Sig (Normalized) Sig (Original) amLODIPine 5 mg oral tablet (20 sources) Dihydropyridine Calcium Channel Chalino Start: 08-01-2024 take 1 tablet by mouth once daily Amlodipine 5 mg tablet Active 0 .ROUTE .COMPLEX August 01, 2024 8:06am TAKE 1 TABLET BY MOUTH DAILY Complies with drug therapy Start: 01-11-2021 End: 08-01-2024 take 1 tablet by mouth once daily Amlodipine 5 mg tablet Discontinued 5 MG PO Daily October 05, 2023 3:05pm August 01, 2024 8:06am atorvastatin 40 mg oral tablet (20 sources) HMG-CoA Reductase Inhibitor Start: 03-11-2024 End: 11-14-2024 take 1 tablet by mouth once daily Atorvastatin 40 mg tablet Active 40 MG PO Daily November 14, 2024 8:49am Complies with drug therapy Start: 12-28-2023 End: 03-11-2024 take 1 tablet by mouth once daily in the evening Atorvastatin 40 mg tablet Discontinued 0 .ROUTE .COMPLEX December 28, 2023 7:39am March 11, 2024 9:52am TAKE 1 TABLET BY MOUTH EVERY DAY IN THE EVENING Start: 01-11-2021 End: 12-28-2023 take 1 tablet by mouth once daily Atorvastatin 40 mg Tablet Discontinued 40 MG PO Daily March 11, 2021 12:00am October 03, 2023 3:56pm benazepril hydrochloride 20 mg oral tablet (20 sources) Angiotensin Converting Enzyme Inhibitor Start: 08-01-2024 take 1 tablet by mouth once daily Benazepril 20 mg tablet Active 0 .ROUTE .COMPLEX 90 August 01, 2024 8:06am TAKE 1 TABLET BY MOUTH DAILY FOR 90 DAYS Complies with drug therapy Start: 07-04-2024 End: 08-01-2024 take 1 tablet by mouth once daily Benazepril 20 mg tablet Discontinued 20 MG PO Daily July 04, 2024 1:00am August 01, 2024 8:06am Start: 11-03-2023 End: 07-04-2024 take 1 tablet by mouth once daily Benazepril 40 mg tablet Discontinued 40 MG PO Daily November 03, 2023 12:00am July 04, 2024 12:31pm Start: 01-11-2021 End: 11-03-2023 take 1 tablet by mouth once daily Benazepril 20 mg Tablet Discontinued 20 MG PO Daily March 11, 2021 12:00am October 03, 2023 3:56pm take 1 tablet by prisca th every twenty-four hours Benazepril HCl 40 MG 1 tablet Orally Once a day Active Hyaluronic Wn-Zbricrvow-Ufjv (Radiaplexrx) Gel (9 sources) Start: 05-18-2021 Hyaluronic Na- Allantoin-Aloe (Radiaplexrx) Gel Active 1 APPLIC TOPICAL Three times daily May 18, 2021 9:12am Start: 05-18-2021 End: 12-28-2022 Hyaluronic Yd-Rrwjfirza-Moge (Radiaplexrx) Gel Discontinued 1 APPLIC TOPICAL Three times daily May 17, 2021 11:00pm December 28, 2022 8:29am Start: 05-18-2021 End: 12-28-2022 Hyaluronic Bw-Ezqtphyrm-Tcpl (Radiaplexrx) Gel Discontinued 1 APPLIC TOPICAL Three times daily May 18, 2021 12:00am December 28, 2022 9:29am Start: 05-18-2021 Hyaluronic Na- Allantoin-Aloe (Radiaplexrx) Gel Active 1 APPLIC TOPICAL Three times daily May 17, 2021 11:00pm Start: 05-18-2021 Hyaluronic Na- Allantoin-Aloe (Radiaplexrx) Gel Active 1 APPLIC TOPICAL Three times daily May 18, 2021 12:00am hydroCHLOROthiazide 25 mg oral tablet (20 sources) Thiazide Diuretic Start: 08-01-2024 take 1 tablet by mouth once daily Hydrochlorothiazide 25 mg tablet Active 0 .ROUTE .COMPLEX 90 August 01, 2024 8:06am TAKE 1 TABLET BY MOUTH DAILY Complies with drug therapy Start: 01-11-2021 End: 08-01-2024 take 1 tablet by mouth once daily Hydrochlorothiazide 25 mg tablet Discontinued 25 MG PO Daily 90 90 October 05, 2023 3:05pm August 01, 2024 8:06am Multivitamin (Multiple Vitamin) Tablet (5 sources) Start: 12-28-2022 take 1 tablet by mouth once daily Multivitamin (Multiple Vitamin) Tablet Active 1 TAB PO Daily December 28, 2022 12:00am Complies with drug therapy Start: 12-28-2022 take 1 tablet by prisca [...] Sig (Original) anastrozole 1 mg oral tablet (18 sources) Aromatase Inhibitor Start: 07-12-2021 End: 07-20-2021 take 1 tablet by mouth once daily Anastrozole 1 mg Tablet Discontinued 1 MG PO Daily July 12, 2021 9:23am July 20, 2021 10:55am azithromycin 250 mg oral tablet (20 sources) Macrolide Antimicrobial Start: 08-19-2024 End: 11-14-2024 Azithromycin 250 mg tablet Discontinued 250 MG PO .COMPLEX 6 August 19, 2024 1:00am November 14, 2024 8:31am 2 tabs on first day followed by 1 tab on days 2-5 Start: 10-06-2023 End: 11-03-2023 Azithromycin 250 mg tablet D iscontinued 250 MG PO As Directed 6 October 06, 2023 12:00am November 03, 2023 9:54am Start: 09-16-2022 Azithromycin 2 50 MG as directed Orally daily for 5 days 09 Aug, 2023 Not-Taking/PRN biotin 1 mg chewable tablet (20 sources) Start: 03-11-2021 End: 12-28-2022 take 1 tablet by mouth once daily Biotin 1,000 mcg Tablet,Chewable Discontinued 1000 MCG PO Daily March 11, 2021 12:00am December 28, 2022 9:29am Start: 01-11-2021 take 1 tablet by prisca th once daily biotin 1000 mcg oral tablet 1,000 mcg = 1 tab(s), Oral, Daily, # 30 tab(s), Refills(s) 0 Start Date: 01/11/21 Status: Ordered Biotin Not-Takin g/PRN Biotin Not-Takin g Biotin Active ibuprofen 800 mg oral tablet (8 sources) Nonsteroidal Anti-inflammatory Drug Start: 01-13-2022 End: 12-28-2022 take 1 tablet by mouth every six hours as needed for pain Ibuprofen 800 mg Tablet Discontinued 800 MG PO Q6H as needed for Pain January 13, 2022 12:00am December 28, 2022 9:29am letrozole 2.5 mg oral tablet (20 sources) Aromatase Inhibitor Start: 07-20-2021 End: 11-19-2024 take 1 tablet by mouth once daily Letrozole 2.5 mg Tablet Discontinued 2.5 MG PO Daily December 28, 2022 10:56am October 04, 2023 10:05am linagliptin 5 mg oral tablet (3 sources) Dipeptidyl Peptidase 4 Inhibitor Start: 11-13-2023 End: 11-14-2023 take 1 tablet by mouth once daily Linagliptin (Tradjenta) 5 mg tablet Discontinued 5 MG PO Daily November 13, 2023 12:00am November 14, 2023 8:37am 24 hr metFORMIN hydrochloride 500 mg extended release oral tablet (15 sources) Biguanide Start: 03-11-2021 End: 12-28-2022 take 1 tablet by mouth twice daily Metformin 500 mg Tablet Extended Release 24 Hr Discontinued 500 MG PO Twice daily March 11, 2021 12:00am December 28, 2022 9:29am Start: 01-11-2021 take 1 tablet by prisca th twice daily metformin 500 mg oral tablet 500 mg = 1 tab(s), Oral, BID, # 60 tab(s), Refills(s) 0 Start Date: 01/11/21 Status: Ordered take 1 tablet by prisca every twenty-four hours metFORMIN HCl 500 MG 1 tablet with a meal Orally Once a day Active mometasone furoate 1 mg/ml topical cream (9 sources) Corticosteroid Start: 05-18-2021 End: 12-28-2022 Mometasone 0.1 % Cream Discontinued 1 APPLIC TOPICAL Twice daily 60 May 18, 2021 12:00am December 28, 2022 9:29am Semaglutide (3 sources) Start: 11-09-2023 End: 11-13-2023 Semaglutide (Ozempic) 0.25 mg or 0.5 mg (2 mg/3 mL) pen injector Discontinued 0.25 MG SUBCUT every week 10 11November 09, 2023 12:00am November 13, 2023 1:26pm for 4 weeks SITagliptin 50 mg oral tablet (3 sources) Dipeptidyl Peptidase 4 Inhibitor Start: 11-14-2023 End: 01-04-2024 take 1 tablet by mouth once daily Sitagliptin Phosphate (Januvia) 50 mg tablet Discontinued 50 MG PO Daily 90 November 14, 2023 12:00am January 04, 2024 9:26am vitamin e 450 mg oral capsule (20 sources) Start: 07-20-2021 End: 12-28-2022 take 1 capsule by mouth once daily Vitamin E 1,000 unit Capsule Discontinued 1000 UNIT PO Daily July 20, 2021 1:00am December 28, 2022 9:29am Start: 01-11-2021 vitamin E 400 International_Unit, Oral, Daily, Refills(s) 0 Start Date: 01/11/21 Status: Ordered Vitamin E Not-Ta /PRN Vitamin E Not-Ta Vitamin E Active zinc oxide 0.1 mg/mg topical ointment (9 sources) Start: 05-31-2021 End: 12-28-2022 Zinc Oxide 10 % Ointment Discontinued 1 APPLIC TOPICAL Three times daily 60 May 31, 2021 1:00am December 28, 2022 9:29am Problems Active Problems Problem Classification Problem Date Documented Date Episodic/Chronic Acute bronchitis (11 sources) Acute bronchitis; Translations: [Acute bronchitis due to other specified organisms] Episodic Cancer of breast (20 sources) Infiltrating lobular carcinoma of breast; Translations: [Malignant neoplasm of upper-inner quadrant of female breast] Onset: 12-09-2021 01-15-2021 Chronic Diabetes mellitus with complications (20 sources) Type 2 diabetes mellitus; Translations: [Type [...] foot; Translations: [Contracture, left ankle] Chronic Other acquired deformities (3 sources) Contracture of joint of left ankle; Translations: [Contracture, left ankle] 10-06-2023 Chronic Other aftercare (4 sources) Drug therapy finding; Translations: [Encounter for therapeutic drug level monitoring] 01-13-2022 Episodic Other aftercare (4 sources) Encounter for therapeutic drug level monitoring; Translations: [Encounter for therapeutic drug monitoring] 04-13-2022 Episodic Other aftercare (7 sources) Long-term current use of drug therapy; Translations: [Encounter for therapeutic drug level monitoring] 01-04-2024 Episodic Other connective tissue disease (1 source) Plantar fasciitis 01-11-2021 Episodic Other connective tissue disease (17 sources) Plantar fascial fibromatosis; Translations: [Plantar fascial fibromatosis] Episodic Other connective tissue disease (1 source) Plantar fascial fibromatosis; Translations: [Plantar fasciitis, left] Episodic Other diseases of veins and lymphatics (15 sources) Peripheral venous insufficiency; Translations: [Venous insufficiency (chronic) (peripheral)] 10-06-2023 Episodic Other diseases of veins and lymphatics (3 sources) Venous insufficiency (chronic) (peripheral); Translations: [Venous (peripheral) insufficiency, unspecified] Episodic Other lower respiratory disease (17 sources) Solitary nodule of lung; Translations: [Solitary pulmonary nodule] Episodic Other lower respiratory disease (7 sources) Solitary pulmonary nodule; Translations: [Solitary pulmonary nodule] Onset: 12-09-2021 Episodic Other lower respiratory disease (8 sources) Nodule of lung; Translations: [Solitary pulmonary nodule] 12-28-2022 Episodic Comment on above: CT: 6-10mm RUL, RML T: stable, decreasing GGO T: calcified pulmonary nodules, largest 10mm, T: calcified and noncalcified nodules, stable, 11/2023 Other non-traumatic joint disorders (1 source) Disorder of ankle joint 01-11-2021 Episodic Other non-traumatic joint disorders (10 sources) Pain in right knee; Translations: [Right knee pain] Onset: 02-26-2022 Resolved: 03-17-2022 Episodic Other non-traumatic joint disorders (2 sources) Knee pain Episodic Other nutritional; endocrine; and metabolic disorders (20 sources) Obesity; Translations: [Obesity, unspecified] 01-11-2021 Chronic [...] nutritional; endocrine; and metabolic disorders (2 sources) Obesity, unspecified; Translations: [Obesity, unspecified] 11-14-2024 Chronic Other screening for suspected conditions (not mental disorders or infectious disease) (20 sources) Patient encounter status; Translations: [Encounter for screening for osteoporosis] Onset: 01-25-2022 01-13-2022 Episodic Other upper respiratory disease (1 source) Seasonal allergy 01-11-2021 Chronic Other upper respiratory disease (18 sources) Allergic rhinitis due to pollen; Translations: [Allergic rhinitis due to pollen] Chronic Other upper respiratory infections (2 sources) Acute maxillary sinusitis, unspecified; Translations: [Acute sinusitis, unspecified] Episodic Residual codes; unclassified (2 sources) Estrogen receptor positive status [ER+] Episodic Spondylosis; intervertebral disc disorders; other back problems (20 sources) Lumbosacral spondylosis with radiculopathy; Translations: [Other spondylosis with radiculopathy, lumbosacral region] 01-11-2021 Chronic Unclassified (1 source) Adenocarcinoma of breast 01-11-2021 Unclassified (2 sources) M25.561 - Pain in right knee Past or Other Problems Problem Classification Problem Date Documented Da te Episodic/Chronic E Codes: Natural/environment (2 sources) Exposure to other specified factors, initial encounter; Translations: [Other and unspecified overexertion or strenuous movements or postures, initial encounter] Onset: 01-03-2022 Episodic Other aftercare (1 source) Other rigger up (current) drug therapy; Translations: [OTH PENITENTIARY CURRENT DRUG THERAPY] Onset: 02-28-2022 Episodic Other aftercare (1 source) 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 drugs; Translations: [PENITENTIARY USE ORAL HYPOGLYCEMIC DX] Onset: 01-03-2022 Episodic Other connective tissue disease (3 sources) Pain in right finger(s); Translations: [PAIN IN RIGHT FINGERS] Onset: 01-02-2022 Episodic Sprains and strains (2 sources) Strain of other muscle(s) and tendon(s) at lower leg level, right leg, initial encounter; Translations: [Unspecified sprain of right thumb, initial encounter] Onset: 01-03-2022 Episodic Unclassified (1 source) Encounter by telehealth for suspected COVID-19 Z20.822 Results Test Name Value Interpretation Reference Range Facility X-ray reportOrdered By: Lionel Ch on 01-08-2025 Study report [facility] [address] [place] [address] XRay Report Signed Patient: Renuka Caceres MR#: [id number] : 1960 Acct:[id number] Age/Sex: 64 / F ADM Date: 5 [facility] Room: Type: [facility] CLI Attending Dr: Luc Bray DO Copies to: Luc Bray DO~ Ordering Provider: Luc Bray DO Date of Service: 01/08/25 XR/XR knee RT 4V*: M17.11 - Unilateral primary osteoarthritis, right knee RIGHT KNEE - 4 views CLINICAL HISTORY: Right knee pain for 4 weeks. COMPARISON: Right knee 03/17/2022 FINDINGS: Minimal knee joint effusion. Mild degenerative changes with medial weightbearing joint space narrowing. No acute bony process. XR/XR knee RT 4V* IMPRESSION: MILD DEGENERATIVE CHANGES OF THE RIGHT KNEE SIMILAR TO THE PRIOR STUDY FROM 2021. NO ACUTE BONY PROCESS IS SEEN. Impression dictated by: Chris Ch Jr., D.O. 01/08/2025 9:45 AM Dictation Location: [place] [address] Transcribed By: [facility] 01/08/25 0945 Dictated By: Chris Ch Jr, DO 01/08/25 0944 Signed By: 01/08/25 0945 [facility] XR knee RT 4V*on 01-08-2025 XR knee RT 4V* [facility] [address] [place] [address] XRay Report Signed Patient: Renuka Caceres MR#: [id number] : 1960 Acct:[id number] Age/Sex: 64 / F ADM Date: 01/08/25 [place] [facility] [place]: Type: [facility] Attending Dr: Luc Bray DO Copies to: Luc Bray DO Ordering Provider: Luc Bray DO Date of Service: 01/08/25 XR/XR knee RT 4V*: M17.11 - Unilateral primary osteoarthritis, right knee RIGHT KNEE - 4 views CLINICAL HISTORY: Right knee pain for 4 weeks. COMPARISON: Right knee 03/17/2022 FINDINGS: Minimal knee joint effusion. Mild degenerative changes with medial weightbearing joint space narrowing. No acute bony process. XR/XR knee RT 4V* IMPRESSION: MILD DEGENERATIVE CHANGES OF THE RIGHT KNEE SIMILAR TO THE PRIOR STUDY FROM 2021. NO ACUTE BONY PROCESS IS SEEN. Impression dictated by: Chris Ch Jr., D.O. 01/08/2025 9:45 AM Dictation Location: [place] [address] Transcribed By: [facility] 01/08/2545 Dictated By: Chris Ch Jr, DO 01/08/2544 Signed By: 01/08/2545 Normal [facility] MM screening mammo BI w/CADo n 12-19-2024 MM screening mammo BI w/CAD [facility] [address] [place] [address] Mammography Report Signed Patient: Renuka Caceres MR#: [id number] : 1960 Acct:[id number] Age/Sex: 64 / F Adm Date: 12/26/24 Loc: Room: Type: [facility] RCR Attending Dr: Chiara Hoffmann MD Ordering Provider: Chiara Hoffmann MD Date of Service: 12/19/24 Procedure(s): MM screening mammo BI w/CAD Accession Number(s): ([id number]) MM/MM screening mammo BI w/CAD: C50.211 - Malignant neoplasm of upper-inner quadrant of r... Copies to: MD Singh Greene DO James E Fanning, MD CLINICAL DATA: Screening for malignancy. BILATERAL SCREENING MAMMOGRAMS - FULL FIELD DIGITAL WITH TOMOSYNTHESIS AND CAD Tomosynthesis craniocaudal and mediolateral oblique views of both breasts were obtained using low- dose digital technique. Comparison is made to prior studies from 12/18/2023 and 11/28/2022. This examination was reviewed with the aid of CAD. There are scattered fibroglandular densities. Surgical clips are noted in the right axilla. Benign- appearing calcifications are present. There is postsurgical scarring and architectural distortion in the right chest wall similar to the prior exam. Benign-appearing lymph nodes are noted along the left chest wall. There are no dominant masses, typically malignant calcifications or architectural distortion. There has been no significant interval change. MM/MM screening mammo BI w/CAD IMPRESSION: NO MAMMOGRAPHIC EVIDENCE OF MALIGNANCY. ROUTINE FOLLOW-UP IS RECOMMENDED IN ONE YEAR. RESULT CODE: 2 Benign Findings(s) DENSITY CODE: 2 (approximately 25-50% glandular) There are scattered areas of fibroglandular density. FOLLOW UP: 1YR The false-negative rate of mammography is approximately 10-percent. Management of a palpable abnormality must be based on clinical grounds. Patient was entered into a reminder system with a target due date for the next mammogram. Impression dictated by: Truman Condon M.D. 12/19/2024 11:06 AM Dictation Location: [facility] Dictated By: Truman Condon II, MD 12/19/24 1102 Signed By: 12/19/24 1106 Normal [facility] Outside Colonoscopyon 2022 Outside Colonoscopy [id number]#1.00C D:127 Normal [facility] Reminderson 01-12-2023 Reminders - From: Palmira Mei LPN To: GSN - Clinical; Sent: 01/12/2023 14:47:17 EDT Show up: 12/11/2032 07:00:00 EDT Subject: colonoscopy recall Due Date/Time: 01/11/2033 07:00:00 EDT Reminder/Recall Patient due for screening colonoscopy 01/11/2033. Normal [facility] Consultation Noteon 12-29-19 Consultation Note [id number]#1.00C D:127 Normal [facility] Pre-Certification Formon Pre-Certification Form [id number]#1.00C D:127 [facility] Consent for Procedure/Surger yon 12-06-2022 Consent for Procedure/Surgery [id number]#1.00C D:127 Normal [facility] Facesheeton 12-05-2022 Facesheet [id number]#1.00C D:127 Normal [facility] Ambulatory Visit Summaryon 0 12-02-2022 Ambulatory Visit [...] disruption of left ankle Normal [facility] CT CHEST WO CONon 11-28-2022 CT CHEST [...] ANDREW MORRIS Date: 2022-11-28 09:52 [address] [facility] [address] CHEST WO [facility] Other MG MAMM DIAGNOSTIC 3D [place] CA Don 11-28-2022 MG MAMM DIAGNOSTIC 3D [place] CAD Patient: RENUKA CACERES Exam Date: 11/28/2022 : 1960 Gender:F Ordering : [facility] Admission #: [id number] Family : DR SINGH FOWLER DPalak Order #: [id number] CLICK HERE TO VIEW EXAM RADIOLOGY REPORT [...] colon/kidney cancer at age 38. LOCATION: [facility] BREAST COMPOSITION: Heterogeneously dense,which may obscure [...] Morris M.D. on 11/28/2022 at 09:41 Normal [facility] Physician Referralon 023 Physician Referral [id number]#1.00C D:127 Normal [facility] Physician Referralon 023 Physician Referral [id number]#1.00C D:127 Normal [facility] CBC AUTO DIFFon 09-27-2022 BASO # 0.0 103/ul Normal 0.0-0.1 [facility] Comment on above: Performed By: #### C BC ####[facility] [address] [place] [address]Dr. Marysol Peace Basophils/100 WBC (Bld) 0.2 % Normal 0.2-2.0 [facility] Comment on above: Performed By: #### C BC ####[facility] K[address]px[address]qp[address] [place] [id number] Peace EO # 0.2 103/ul Normal 0.0-0.7 [facility] Comment on above: Performed By: #### C BC ####[facility] L[address]ipmqgfcl[address] [place] [address]DrLyubov Peace Eosinophils/100 WBC (Bld) 1.3 % Normal 0.9-7.0 [facility] Comment on above: Performed By: #### C BC ####[facility] Vbnjkyviue[address] [place] [address]DrLyubov Peace Erythrocyte distribution width (RBC) [Ratio] 13.0 % Normal 11.0-15.0 [facility] Comment on above: Performed By: #### C BC ####[facility] Xuodbleaco[address] [place] [address]DrLyubov Peace Hematocrit (Bld) [Volume fraction] 46.6 % Normal 36.0-48.0 [facility] Comment on above: Performed By: #### C BC ####[facility] Cvtdwgejyq[address] [place], [place] [address]DrLyubov Peace Hemoglobin (Bld) [Mass/Vol] 15.7 g/dL Normal 12.0-16.0 [facility] Comment on above: Performed By: #### C BC ####[facility] Kgvyqudxso[address] [place], [place] [address]DrLyubov Peace IG # 0.04 10e3/ul Critically high 0.00-0.03 [facility] Comment on above: Performed By: #### C BC ####[facility] Ypehljgj[address] [place], [place] [address]DrLyubov Peace IG % 0.3 % Normal 0.0-0.5 [facility] Comment on above: Performed By: #### C BC ####[facility] Qlbzhnkjpy[address] [place], [place] [address]DrLyubov Peace LYMPH # 0.5 103/ul Critically low 1.2-3.8 [facility] Comment on above: Performed By: #### C BC ####[facility] Vtedqtbnfz5[address] [place], [place] [address]DrLyubov Peace Lymphocytes/100 WBC (Bld) 3.8 % Critically low 20.5-60.0 [facility] Comment on above: Performed By: #### C BC ####[facility] Ynkzviqbch[address] [place], [place] [address]DrLyubov Peace MANUAL DIFF REQ NO Normal [facility] Comment on above: Performed By: #### C BC ####[facility] Pzhdgegppz[address] [place], [place] [address]DrLyubov Peace MCH (RBC) [Entitic mass] 29.2 pg Normal 26.7-34.0 [facility] Comment on above: Performed By: #### C BC ####[facility] [address]fjdolypt[address] [place] [address]DrLyubov Peace MCHC (RBC) [Mass/Vol] 33.7 g/dL Normal 29.9-35.2 [facility] Comment on above: Performed By: #### C BC ####[facility] Mjyowuqivo[address] [place], [place] [address]DrLyubov Peace MCV (RBC) [Entitic vol] 86.6 fL Normal 81.0-99.0 [facility] Comment on above: Performed By: #### C BC ####[facility] Tqjuohgjlq[address] [place], [place] [address]DrLyubov Peace MONO # 0.3 103/ul Normal 0.3-0.8 [facility] Comment on above: Performed By: #### C BC ####[facility] Khxmffjmou58[address] [place], [place] [address]DrLyubov Peace Monocytes/100 WBC (Bld) 2.8 % Normal 1.7-12.0 [facility] Comment on above: Performed By: #### C BC ####[facility] Ttzdrcimkc[address] [place], [place] [address]DrLyubov Peace NEUT # 10.7 103/ul Critically high 1.4-6.5 [facility] Comment on above: Performed By: #### C BC ####[facility] Bfhcilemse[address] [place], [place] [address]DrLyubov Peace Neutrophils/100 WBC (Bld) 91.6 % Critically high 43.0-75.0 [facility] Comment on above: Performed By: #### C BC ####[facility] Oekejwofek[address] [place], [place] [address]DrLyubov Peace Platelet mean volume (Bld) [Entitic vol] 11.0 fL Normal 9.5-13.5 [facility] Comment on above: Performed By: #### C BC ####[facility] Vrthxpjrxf[address] [place], [place] [address]Dr. Marysol Peace PLT 192 103/ul Normal 150-450 [facility] Comment on above: Performed By: #### C BC ####[facility] Xxnbmwkvrw80[address] [place] [phone]. Marysol Peace RBC 5.38 106/ul Normal 4.20-5.40 [facility] Comment on above: Performed By: #### C BC ####[facility] Wogrhpdnxu[address] [place] [phone]. Marysol Peace WBC 11.7 103/ul Critically high 4.0-11.0 [facility] Comment on above: Performed By: #### C BC ####[facility] [address]asggdo[address] [place] [address]Dr. Marysol Peace GLYCOHEMOGLOBIN A1Con 2022 ADA RECOMMENDATION SEE BELOW Normal [facility] Comment on above: Result Comment: ADA RECOMMENDED LIMIT 4.0 - 6.0 ADA THERAPEUTIC TARGET < 7.0 ACTION SUGGESTED > 7.0 Performed By: #### A 1C ####[facility] [address]wni[address] [place] [address]Dr. Marysol Peace Glucose [Mass/Vol] 154 mg/dL Normal [facility] Comment on above: Performed By: #### A 1C ####[facility] [address]knv[address] [place] [address]Dr. Marysol Peace HbA1c (Bld) [Mass fraction] 7.0 % Critically high 4.5-6.2 [facility] Comment on above: Performed By: #### A 1C ####[facility] Phlieuktfw[address] [place] [phone]. Marysol Peace LIPID PROFILEon 09-27-2022 CHOL-HDL RATIO NORM SEE BELOW Normal [facility] Comment on above: Result Comment: 3.3 - 4.4 LOW RISK 4.4 - 7.1 AVERAGE RISK 7.1 - 11.0 MODERATE RISK >11.0 HIGH RISK Performed By: #### L IPID, CMP, TSH ####[facility] A[address]undur[address] [place] [address]Dr. Marysol Peace Cholesterol [Mass/Vol] 136 mg/dL Normal <=200 [facility] Comment on above: Performed By: #### L IPID, CMP, TSH ####[facility] Ojzyilwxop5[address] [place] [phone]. Marysol Peace Cholesterol in HDL [Mass/Vol] 36 mg/dL Critically low 40-60 [facility] Comment on above: Performed By: #### L IPID, CMP, TSH ####[facility] Msfdrmoagf9027 [place] [phone]. Marysol Peace Cholesterol in LDL [Mass/Vol] 66.2 mg/dL Normal [facility] Comment on above: Performed By: #### L IPID, CMP, TSH ####[facility] I[address]unhvej[address] [place] [address]Dr. Marysol Peace Cholesterol.total/C holesterol in HDL [Mass ratio] 3.8 {ratio} Normal [facility] Comment on above: Performed By: #### L IPID, CMP, TSH ####[facility] R[address]ajnjo[address] [place] [address]Dr. Marysol Peace HDL NORMAL > or = 60 mg/dl - LO W CARDIOVASCULAR RISK <40 mg/dl - HIGH CARDIOVASCULAR RISK Normal [facility] Comment on above: Performed By: #### L IPID, CMP, TSH ####[facility] [address]vvka[address] [place] [address]Dr. Marysol Peace LDL CALC NORMAL SEE BELOW Normal [facility] [place] Comment on above: Result Comment: <100 mg/dl OPTIMAL 100 - 129 mg/dl NEAR OR ABOVE OPTIMAL 130 - 159 mg/dl BORDERLINE HIGH 160 - 189 mg/dl HIGH >190 mg/dl VERY HIGH Performed By: #### L IPID, CMP, TSH ####[facility] Uhpssqhvkx78[address] [place] [phone]. Marysol Peace Triglyceride [Mass/Vol] 169 mg/dL Critically high <=150 [facility] Comment on above: Performed By: #### L IPID, CMP, TSH ####[facility] Ptbxymoype[address] [place] [phone]. Marysol Peace VLDL CALC 33.8 mg/dL Normal [facility] Comment on above: Performed By: #### L IPID, CMP, TSH ####[facility] Nwpqtquxho[address] [place] [address]Dr. Marysol Peace PROF 14(COMP METB)on 023 Albumin [Mass/Vol] 3.9 g/dL Normal 3.4-5.0 [facility] Comment on above: Performed By: #### L IPID, CMP, TSH ####[facility] V[address]ftls[address] [place] [address]Dr. Marysol Peace Albumin/Globulin [Mass ratio] 1.1 {ratio} Normal [facility] Comment on above: Performed By: #### L IPID, CMP, TSH ####[facility] Ymwzzqxbof[address] [place] [address]Dr. Marysol Peace ALP [Catalytic activity/Vol] 92 U/L Normal 46-116 [facility] Comment on above: Performed By: #### L IPID, CMP, TSH ####[facility] [address]qskeuvr[address] [place] [address]Dr. Marysol Peace ALT [Catalytic activity/Vol] 29 U/L Normal 14-59 [facility] Comment on above: Performed By: #### L IPID, CMP, TSH ####[facility] Gparcgcaus[address] [place], [place] [address]Dr. Marysol Peace Anion gap [Moles/Vol] 12.2 mmol/L Normal [facility] Comment on above: Performed By: #### L IPID, CMP, TSH ####[facility] Dup[address]weuuk[address] [place] [address]Dr. Marysol Peace AST [Catalytic activity/Vol] 20 U/L Normal 15-37 [facility] Comment on above: Performed By: #### L IPID, CMP, TSH ####[facility] K[address]dzkb[address]fc[address] [place] [address]Dr. Marysol Peace Bilirubin [Mass/Vol] 0.5 mg/dL Normal 0.2-1.0 [facility] Comment on above: Performed By: #### L IPID, CMP, TSH ####[facility] Yrdqflffte[address] [place] [address]Dr. Marysol Peace Calcium [Mass/Vol] 8.9 mg/dL Normal 8.5-10.1 [facility] Comment on above: Performed By: #### L IPID, CMP, TSH ####[facility] D[address]udntwpat[address] [place] [address]Dr. Marysol Peace Chloride [Moles/Vol] 102 mmol/L Normal 98-107 [facility] Comment on above: Performed By: #### L IPID, CMP, TSH ####[facility] Y[address]hnxvfuc[address] [place] [address]Dr. Marysol Peace CO2 [Moles/Vol] 25.6 mmol/L Normal 21.0-32.0 [facility] Comment on above: Performed By: #### L IPID, CMP, TSH ####[facility] St[address]pkupju[address] [place], [place] [address]Dr. Marysol Peace Creatinine [Mass/Vol] 0.61 mg/dL Normal 0.55-1.02 [facility] Comment on above: Performed By: #### L IPID, CMP, TSH ####[facility] Zoiwlgrbpc[address] [place], [place] [address]Dr. Marysol Peace EGFR-AF AZERBAIJANI >60 Normal >=60 [facility] Comment on above: Performed By: #### L IPID, CMP, TSH ####[facility] Ncksmfbkcr69[address] [place], [place] [address]Dr. Maryslo Peace EGFR-NON AF AZERBAIJANI >60 Normal >=60 [facility] Comment on above: Performed By: #### L IPID, CMP, TSH ####[facility] Xcstoanvxu[address] [place] [address]Dr. Marysol Peace Globulin (S) [Mass/Vol] 3.4 g/dL Normal [facility] Comment on above: Performed By: #### L IPID, CMP, TSH ####[facility] Ldksfkgxkd[address] [place] [address]Dr. Marysol Peace Glucose [Mass/Vol] 149 mg/dL Critically high 74-106 [facility] Comment on above: Performed By: #### L IPID, CMP, TSH ####[facility] Lgqhchpkmy[address] [place] [address]Dr. Marysol Peace Potassium [Moles/Vol] 3.8 mmol/L Normal 3.5-5.1 [facility] Comment on above: Performed By: #### L IPID, CMP, TSH ####[facility] Ssxqxuiazf2[address] [place] [address]Dr. Marysol Peace Protein [Mass/Vol] 7.3 g/dL Normal 6.4-8.2 [facility] Comment on above: Performed By: #### L IPID, CMP, TSH ####[facility] Spnijhowsx[address] [place], [place] [address]Dr. Marysol Peace Sodium [Moles/Vol] 136 mmol/L Normal 136-145 [facility] Comment on above: Performed By: #### L IPID, CMP, TSH ####[facility] Jrincfgzxy[address] [place], [place] [address]Dr. Marysol Peace Urea nitrogen [Mass/Vol] 26.0 mg/dL Critically high 7.0-18.0 [facility] Comment on above: Performed By: #### L IPID, CMP, TSH ####[facility] Dmpmkxptcs[address] [place], [place] [address]Dr. Marysol Peace Urea nitrogen/Creatinine [Mass ratio] 42.6 mg/mg Normal [facility] Comment on above: Performed By: #### L IPID, CMP, TSH ####[facility] Mcnrkdafbl[address] [place], [place] [address]Dr. Marysol Peace TSHon 09-27-2022 TSH 1.298 uIU/mL Normal 0.358-3.740 [facility] Comment on above: Performed By: #### L IPID, CMP, TSH ####[facility] Mxcinscxxh[address] [place], [place] [address]Dr. Marysol Peace CAITLYN - TSHon 05-02-2022 TSH 2.031 uIU/mL Normal 0.358-3.740 [facility] Comment on above: Performed By: #### D ATTSH #### [facility] [address] [place] [address] [address] Marysol Peace TSH RANGE SEE BELOW Normal [facility] Comment on above: Result Comment: <0.3 4 UIU/ml HYPERTHYROID 0.34-5.60 UIU/ml EUTHYROID >5.60 UIU/ml HYPOTHYROID Performed By: #### D ATTSH #### [facility] [address] [place] [address] [address] Marysol Peace GLYCOHEMOGLOBIN A1Con 2021 ADA RECOMMENDATION SEE BELOW Normal [facility] Comment on above: Result Comment: ADA RECOMMENDED LIMIT 4.0 - 6.0 ADA THERAPEUTIC TARGET < 7.0 ACTION SUGGESTED > 7.0 Performed By: #### D ATA1C #### [facility] [address] [place] [address] Dr. Marysol Peace Glucose [Mass/Vol] 151 mg/dL Normal [facility] Comment on above: Performed By: #### D ATA1C #### [facility] [address] [place] [address] Dr. Marysol Peace HbA1c (Bld) [Mass fraction] 6.9 % Critically high 4.5-6.2 [facility] Comment on above: Performed By: #### D ATA1C #### [facility] [address] [place] [address] Dr. Marysol Peace XR KNEE RT 4V [...] by: JOSH COOK Date: 2022-02-26 16:36 Normal [facility] XR DEXA BONE DENSITYon 01-18 [...] ANDREW MORRIS Date: 2022-01-18 16:32 Normal [facility] CBC AUTO DIFFon 12-06-2021 BASO # 0.0 103/ul Normal 0.0-0.1 [facility] Comment on above: Performed By: #### C BC ####[facility] Rhqhhgkluy[address] [place], [place] [address]Dr. Marysol Peace Basophils/100 WBC (Bld) 0.4 % Normal 0.2-2.0 [facility] Comment on above: Performed By: #### C BC ####[facility] Dsxvwwmmuy64[address] [place] [address]DrLyubov Peace EO # 0.2 103/ul Normal 0.0-0.7 [facility] Comment on above: Performed By: #### C BC ####[facility] Cpgphblluz4[address] [place] [address]DrLyubov Peace Eosinophils/100 WBC (Bld) 2.4 % Normal 0.9-7.0 [facility] Comment on above: Performed By: #### C BC ####[facility] Eenvbyjwsn[address] [place], [place] [address]DrLyubov Peace Erythrocyte distribution width (RBC) [Ratio] 12.5 % Normal 11.0-15.0 [facility] Comment on above: Performed By: #### C BC ####[facility] Rqnhevzhpc[address] [place], [place] [address]DrLyubov Peace Hematocrit (Bld) [Volume fraction] 45.6 % Normal 36.0-48.0 [facility] Comment on above: Performed By: #### C BC ####[facility] Djvedtmroi[address] [place] [address]Dr. Marysol Peace Hemoglobin (Bld) [Mass/Vol] 15.3 g/dL Normal 12.0-16.0 [facility] Comment on above: Performed By: #### C BC ####[facility] M[address]nlchtil[address] [place] [address]Dr. Marysol Peace IG # 0.03 10e3/ul Normal 0.00-0.03 [facility] Comment on above: Performed By: #### C BC ####[facility] K[address]zphial[address] [place] [address]Dr. Marysol Peace IG % 0.4 % Normal 0.0-0.5 [facility] Comment on above: Performed By: #### C BC ####[facility] Sgbkgvbkgk8[address] [place], [place] [address]Dr. Marysol Kobi LYMPH # 1.4 103/ul Normal 1.2-3.8 [facility] Comment on above: Performed By: #### C BC ####[facility] Dehurdmfmr[address] [place], [place] [address]Dr. Marysol Peace Lymphocytes/100 WBC (Bld) 19.9 % Critically low 20.5-60.0 [facility] Comment on above: Performed By: #### C BC ####[facility] Ooaaxubjsx13[address] [place], [place] [address]Dr. Piedadbre Peace MANUAL DIFF REQ NO Normal [facility] Comment on above: Performed By: #### C BC ####[facility] Xktarewarf65[address] [place], [place] [address]Dr. Marysol Peace MCH (RBC) [Entitic mass] 29.5 pg Normal 26.7-34.0 [facility] Comment on above: Performed By: #### C BC ####[facility] Wguinbqecw[address] [place] [address]Dr. Piedadbre Peace MCHC (RBC) [Mass/Vol] 33.6 g/dL Normal 29.9-35.2 [facility] Comment on above: Performed By: #### C BC ####[facility] Rxsswhedys[address] [place] [phone]. Marysol Peace MCV (RBC) [Entitic vol] 87.9 fL Normal 81.0-99.0 [facility] Comment on above: Performed By: #### C BC ####[facility] Dtjxvvcvxy4455 [place] [id number]. Marysol Peace MONO # 0.8 103/ul Normal 0.3-0.8 [facility] Comment on above: Performed By: #### C BC ####[facility] Vjanykoybz[address] [place], [place] [address]Dr. Marysol Kobi Monocytes/100 WBC (Bld) 11.8 % Normal 1.7-12.0 [facility] Comment on above: Performed By: #### C BC ####[facility] Fzfcitkqkg[address] [place], [place] [address]Dr. Marysol Peace NEUT # 4.4 103/ul Normal 1.4-6.5 [facility] Comment on above: Performed By: #### C BC ####[facility] Llxysmrqba37[address] [place], [place] [address]Dr. Piedadbre Peace Neutrophils/100 WBC (Bld) 65.1 % Normal 43.0-75.0 [facility] Comment on above: Performed By: #### C BC ####[facility] Vciuwyiptf06[address] [place], [place] [address]Dr. Marysol Kobi Platelet mean volume (Bld) [Entitic vol] 10.9 fL Normal 9.5-13.5 [facility] Comment on above: Performed By: #### C BC ####[facility] [address]sw[address] [place], [place] [address]Dr. Piedadbre Kobi PLT 187 103/ul Normal 150-450 [facility] Comment on above: Performed By: #### C BC ####[facility] Z[address]ozqapi[address] [place] [phone]. Marysol Peace RBC 5.19 106/ul Normal 4.20-5.40 [facility] Comment on above: Performed By: #### C BC ####[facility] [address]uhxqw5[address] [place], [place] [address]AnLyubov Peace WBC 6.8 103/ul Normal 4.0-11.0 [facility] Comment on above: Performed By: #### C BC ####[facility] [address]poed39[address] [place], [place] [address]. [address] CHEST WO CONon 12-06-2021 [...] JULIAN SLAUGHTER Date: 2021-12-06 11:39 Normal [facility] GLYCOHEMOGLOBIN A1Con 2021 ADA RECOMMENDATION SEE BELOW Normal [facility] Comment on above: Result Comment: ADA RECOMMENDED LIMIT 4.0 - 6.0 ADA THERAPEUTIC TARGET < 7.0 ACTION SUGGESTED > 7.0 Performed By: #### A 1C ####[facility] [address]hhkzozo[address] [place] [id number] Peace Glucose [Mass/Vol] 137 mg/dL Normal [facility] Comment on above: Performed By: #### A 1C ####[facility] O[address]ylcbk3287 [place], [place] [address]Dr. Marysol Peace HbA1c (Bld) [Mass fraction] 6.4 % Critically high 4.5-6.2 [facility] Comment on above: Performed By: #### A 1C ####[facility] K[address]eehymvp39[address] [place] [phone]. Marysol Peace LIPID PROFILEon 12-06-2021 CHOL-HDL RATIO NORM SEE BELOW Normal [facility] Comment on above: Result Comment: 3.3 - 4.4 LOW RISK 4.4 - 7.1 AVERAGE RISK 7.1 - 11.0 MODERATE RISK >11.0 HIGH RISK Performed By: #### C MP, TSH, LIPID #### [facility] [address] [address] [address] Marysol Peace Cholesterol [Mass/Vol] 154 mg/dL Normal <=200 [facility] Comment on above: Performed By: #### C MP, TSH, LIPID #### [facility] [address] [address] [address] Marysol Peace Cholesterol in HDL [Mass/Vol] 33 mg/dL Critically low 40-60 [facility] Comment on above: Performed By: #### C MP, TSH, LIPID #### [facility] [address] [address] [address] Marysol Peace Cholesterol in LDL [Mass/Vol] 77.8 mg/dL Normal [facility] Comment on above: Performed By: #### C MP, TSH, LIPID #### [facility] [address] [address] [address] Marysol Peace Cholesterol.total/C holesterol in HDL [Mass ratio] 4.7 {ratio} Normal [facility] Comment on above: Performed By: #### C MP, TSH, LIPID #### [facility] [address] [address] [address] Marysol Peace HDL NORMAL > or = 60 mg/dl - LO W CARDIOVASCULAR RISK <40 mg/dl - HIGH CARDIOVASCULAR RISK Normal [facility] Comment on above: Performed By: #### C MP, TSH, LIPID #### [facility] [address] [place], [place] [address] Dr. Marysol Peace LDL CALC NORMAL SEE BELOW Normal [facility] [place] Comment on above: Result Comment: <100 mg/dl OPTIMAL 100 - 129 mg/dl NEAR OR ABOVE OPTIMAL 130 - 159 mg/dl BORDERLINE HIGH 160 - 189 mg/dl HIGH >190 mg/dl VERY HIGH Performed By: #### C MP, TSH, LIPID #### [facility] [address] [address] [address] Marysol Peace Triglyceride [Mass/Vol] 216 mg/dL Critically high <=150 [facility] Comment on above: Performed By: #### C MP, TSH, LIPID #### [facility] [address] [address] [address] Marysol Peace VLDL CALC 43.2 mg/dL Normal [facility] Comment on above: Performed By: #### C MP, TSH, LIPID #### [facility] [address] [address] [address] Marysol Peace MG MAMM DIAGNOSTIC 3D OMKAR CA Don 12-06-2021 MG MAMM DIAGNOSTIC 3D OMK[place] CAD Patient: RENUKA CACERES Exam Date: 12/06/2021 : 1960 Gender:F Ordering : DR SINGH FOWLER D.O. Admission #: [id number] Family : Order #: [id number] CLICK HERE TO VIEW EXAM RADIOLOGY REPORT [...] colon/kidney cancer at age 38. LOCATION: [facility] BREAST COMPOSITION: Heterogeneously dense,which may obscure [...] Morris M.D. on 12/06/2021 at 10:49 Normal [facility] PROF 14(COMP METB)on 022 Albumin [Mass/Vol] 4.0 g/dL Normal 3.4-5.0 [facility] Comment on above: Performed By: #### C MP, TSH, LIPID #### [facility] [address] [address] [address] Marysol Peace Albumin/Globulin [Mass ratio] 1.1 {ratio} Normal [facility] Comment on above: Performed By: #### C MP, TSH, LIPID #### [facility] [address] [place] [address] Dr. Marysol Peace ALP [Catalytic activity/Vol] 88 U/L Normal 46-116 [facility] Comment on above: Performed By: #### C MP, TSH, LIPID #### [facility] [address] [address] [address] Marysol Peace ALT [Catalytic activity/Vol] 36 U/L Normal 14-59 [facility] Comment on above: Performed By: #### C MP, TSH, LIPID #### [facility] [address] [address] [address] Marysol Peace Anion gap [Moles/Vol] 11.4 mmol/L Normal [facility] Comment on above: Performed By: #### C MP, TSH, LIPID #### [facility] [address] [address] [address] Marysol Peace AST [Catalytic activity/Vol] 18 U/L Normal 15-37 [facility] Comment on above: Performed By: #### C MP, TSH, LIPID #### [facility] [address] [address] [address] Marysol Peace Bilirubin [Mass/Vol] 0.5 mg/dL Normal 0.2-1.0 [facility] Comment on above: Performed By: #### C MP, TSH, LIPID #### [facility] [address] [address] [address] Marysol Peace Calcium [Mass/Vol] 9.5 mg/dL Normal 8.5-10.1 [facility] Comment on above: Performed By: #### C MP, TSH, LIPID #### [facility] [address] [address] [address] Marysol Peace Chloride [Moles/Vol] 102 mmol/L Normal 98-107 [facility] Comment on above: Performed By: #### C MP, TSH, LIPID #### [facility] [address] [place] [address] Dr. Marysol Peace CO2 [Moles/Vol] 31.7 mmol/L Normal 21.0-32.0 [facility] Comment on above: Performed By: #### C MP, TSH, LIPID #### [facility] [address] [place] [address] Dr. Marysol Peace Creatinine [Mass/Vol] 0.63 mg/dL Normal 0.55-1.02 [facility] Comment on above: Performed By: #### C MP, TSH, LIPID #### [facility] [address] [place] [address] Dr. Marysol Peace EGFR-AF AZERBAIJANI >60 Normal >=60 [facility] Comment on above: Performed By: #### C MP, TSH, LIPID #### [facility] [address] [place] [address] Dr. Marysol Peace EGFR-NON AF AZERBAIJANI >60 Normal >=60 [facility] Comment on above: Performed By: #### C MP, TSH, LIPID #### [facility] [address] [place] [address] Dr. Marysol Peace Globulin (S) [Mass/Vol] 3.7 g/dL Normal [facility] Comment on above: Performed By: #### C MP, TSH, LIPID #### [facility] [address] [address] [address] Marysol Peace Glucose [Mass/Vol] 129 mg/dL Critically high 74-106 [facility] Comment on above: Performed By: #### C MP, TSH, LIPID #### [facility] [address] [address] [address] Marysol Peace Potassium [Moles/Vol] 5.1 mmol/L Normal 3.5-5.1 [facility] Comment on above: Performed By: #### C MP, TSH, LIPID #### [facility] [address] [address] [address] Marysol Peace Protein [Mass/Vol] 7.7 g/dL Normal 6.4-8.2 [facility] Comment on above: Performed By: #### C MP, TSH, LIPID #### [facility] [address] [address] [address] Marysol Peace Sodium [Moles/Vol] 140 mmol/L Normal 136-145 [facility] Comment on above: Performed By: #### C MP, TSH, LIPID #### [facility] [address] [address] [address] Marysol Peace Urea nitrogen [Mass/Vol] 20.0 mg/dL Critically high 7.0-18.0 [facility] Comment on above: Performed By: #### C MP, TSH, LIPID #### [facility] [address] [address] [address] Marysol Peace Urea nitrogen/Creatinine [Mass ratio] 31.7 mg/mg Normal [facility] Comment on above: Performed By: #### C MP, TSH, LIPID #### [facility] [address] [address] [address] Marysol Peace TSHon 12-06-2021 TSH 1.978 uIU/mL Normal 0.358-3.740 [facility] Comment on above: Performed By: #### C MP, TSH, LIPID #### [facility] [address] [place] [address] Dr. Marysol Peace TSH RANGE SEE BELOW Normal [facility] Comment on above: Result Comment: <0.3 4 UIU/ml HYPERTHYROID 0.34-5.60 UIU/ml EUTHYROID >5.60 UIU/ml HYPOTHYROID Performed By: #### C MP, TSH, LIPID #### [facility] [address] [address] [address] Marysol Peace Vital Signs Date Time Vital Sign Value Performing Clinician Facility 01-08-2025 08:33-0400 Body height 162.56 cm Singh Ball DO Work Phone: [facility] 01-08-2025 08:33-0400 Body mass index (BMI) [Ratio] 31.4 kg/m2 Singh Ball DO Work Phone: [facility] 01-08-2025 08:33-0400 Body weight 83 kg Singh Ball DO Work Phone: [facility] 12-26-2024 10:53-0400 Body temperature 97.9 [degF] Singh Ball DO Work Phone: [facility] 12-26-2024 10:53-0400 Body weight 83.46 kg Singh Ball DO Work Phone: [facility] 12-26-2024 10:53-0400 Diastolic blood pressure 79 mm[Hg] Singh Ball DO Work Phone: [facility] 12-26-2024 10:53-0400 Heart rate 77 /min Singh Ball DO Work Phone: [facility] 12-26-2024 10:53-0400 Respiratory rate 18 /min Singh Ball DO Work Phone: [facility] 12-26-2024 10:53-0400 SaO2% (BldA) [Mass fraction] 98 % Singh Ball DO Work Phone: [facility] 12-26-2024 10:53-0400 Systolic blood pressure 156 mm[Hg] Singh Ball DO Work Phone: [facility] 11-14-2024 08:44-0400 Body height 170.18 cm [facility] 11-14-2024 08:44-0400 Body mass index (BMI) [Ratio] 30 kg/m2 [facility] 11-14-2024 08:44-0400 Body weight 87.14 kg [facility] 11-14-2024 08:44-0400 Diastolic blood pressure 89 mm[Hg] [facility] 11-14-2024 08:44-0400 Heart rate 80 /min [facility] 11-14-2024 08:44-0400 Respiratory rate 12 /min [facility] 11-14-2024 08:44-0400 Systolic blood pressure 139 mm[Hg] [facility] 08-19-2024 10:32-0500 Body height 170.18 cm [facility] 08-19-2024 10:32-0500 Body mass index (BMI) [Ratio] 30.4 kg/m2 [facility] 08-19-2024 10:32-0500 Body temperature 98.2 [degF] [facility] 08-19-2024 10:32-0500 Body weight 88.05 kg [facility] 08-19-2024 10:32-0500 Diastolic blood pressure 77 mm[Hg] [facility] 08-19-2024 10:32-0500 Heart rate 105 /min [facility] 08-19-2024 10:32-0500 Respiratory rate 16 /min [facility] 08-19-2024 10:32-0500 Systolic blood pressure 117 mm[Hg] [facility] 07-04-2024 11:24-0500 Body height 170.18 cm Singh Ball DO Work Phone: [facility] 07-13-2023 12:15-0500 Body height 170.18 cm Singh Ball Other [employer] [facility] Other 07-13-2023 12:15-0500 Diastolic blood pressure 80 mm[Hg] Singh Ball Other [employer] [facility] Other 07-13-2023 12:15-0500 Systolic blood pressure 135 mm[Hg] Singh Ball Other [employer] Other 07-07-2023 08:30-0500 Body height 170.18 cm Singh Ball Other [employer] Other 07-07-2023 08:30-0500 Body mass index (BMI) [Ratio] 34.83 kg/m2 Singh Ball Other [employer] Other 07-07-2023 08:30-0500 Body weight 100.88 kg Singh Ball Other [employer] Other 07-07-2023 08:30-0500 Diastolic blood pressure 89 mm[Hg] Singh Ball Other [employer] Other 07-07-2023 08:30-0500 Respiratory rate 16 /min Singh Ball Other [employer] Other 07-07-2023 08:30-0500 Systolic blood pressure 152 mm[Hg] Singh Ball Other [employer] Other 06-29-2023 09:36-0500 Body height 162.56 cm DO Singh Ball Work Phone: [facility] 06-29-2023 09:36-0500 Body temperature 98.3 [degF] DO Singh Ball Work Phone: [facility] 06-29-2023 09:36-0500 Body weight 91.85 kg DO Singh Ball Work Phone: [facility] 06-29-2023 09:36-0500 Diastolic blood pressure 80 mm[Hg] DO Singh Ball Work Phone: [facility] 06-29-2023 09:36-0500 Heart rate 83 /min DO Singh Ball Work Phone: [facility] 06-29-2023 09:36-0500 Respiratory rate 20 /min DO Singh Ball Work Phone: [facility] 06-29-2023 09:36-0500 SaO2% (BldA) [Mass fraction] 98 % DO Singh Ball Work Phone: [facility] 06-29-2023 09:36-0500 Systolic blood pressure 165 mm[Hg] DO Singh Ball Work Phone: [facility] 03-06-2023 08:30-0400 Body height 170.18 cm Singh Ball Other [facility] [facility] Other 03-06-2023 08:30-0400 Body mass index (BMI) [Ratio] 31.01 kg/m2 Singh Ball Other [facility] Other 03-06-2023 08:30-0400 Body weight 89.81 kg Singh Ball Other [facility] Other 03-06-2023 08:30-0400 Diastolic blood pressure 80 mm[Hg] Singh Ball Other [facility] Other 03-06-2023 08:30-0400 Respiratory rate 12 /min Singh Ball Other [facility] Other 03-06-2023 08:30-0400 Systolic blood pressure 152 mm[Hg] Singh Ball Other [employer] Other 12-28-2022 09:30-0400 Body temperature 97.9 [degF] DO Singh Ball Work Phone: [facility] 12-28-2022 09:30-0400 Body weight 90.26 kg DO Singh Ball Work Phone: [facility] 12-28-2022 09:30-0400 Diastolic blood pressure 88 mm[Hg] DO Singh Ball Work Phone: [facility] 12-28-2022 09:30-0400 Heart rate 79 /min DO Singh Ball Work Phone: [facility] 12-28-2022 09:30-0400 Respiratory rate 16 /min DO Singh Ball Work Phone: [facility] 12-28-2022 09:30-0400 SaO2% (BldA) [Mass fraction] 98 % DO Singh Ball Work Phone: [facility] 12-28-2022 09:30-0400 Systolic blood pressure 153 mm[Hg] DO Singh Ball Work Phone: [facility] 11-02-2022 10:30-0400 Body height 170.18 cm Singh Ball Other [facility] Other 11-02-2022 10:30-0400 Body mass index (BMI) [Ratio] 31.38 kg/m2 Singh Ball Other [employer] [facility] Other 11-02-2022 10:30-0400 Body weight 90.9 kg Singh Ball Other [employer] Other 11-02-2022 10:30-0400 Diastolic blood pressure 80 mm[Hg] Singh Ball Other [employer] Other 11-02-2022 10:30-0400 Respiratory rate 12 /min Singh Ball Other [employer] Other 11-02-2022 10:30-0400 Systolic blood pressure 136 mm[Hg] Singh Ball Other [employer] Other 11-02-2022 09:30-0400 Body height 170.18 cm Singh Ball Other [employer] Other 11-02-2022 09:30-0400 Body mass index (BMI) [Ratio] 31.38 kg/m2 Singh Ball Other [employer] Other 11-02-2022 09:30-0400 Body weight 90.9 kg Singh Ball Other [employer] Other 11-02-2022 09:30-0400 Diastolic blood pressure 80 mm[Hg] Singh Ball Other [employer] Other 11-02-2022 09:30-0400 Respiratory rate 12 /min Singh Ball Other [facility] Other 11-02-2022 09:30-0400 Systolic blood pressure 136 mm[Hg] Singh Ball Other [employer] Other 06-29-2022 08:22-0500 Body height 162.56 cm DO Singh Ball Work Phone: [facility] 06-29-2022 08:22-0500 Body weight 93.7 kg DO Singh Ball Work Phone: [facility] 06-29-2022 08:22-0500 Diastolic blood pressure 87 mm[Hg] DO Singh Ball Work Phone: [facility] 06-29-2022 08:22-0500 Heart rate 87 /min DO Singh Ball Work Phone: [facility] 06-29-2022 08:22-0500 Respiratory rate 20 /min DO Singh Ball Work Phone: [facility] 06-29-2022 08:22-0500 SaO2% (BldA) [Mass fraction] 97 % DO Singh Ball Work Phone: [facility] 06-29-2022 08:22-0500 Systolic blood pressure 157 mm[Hg] DO Singh Ball Work Phone: [facility] 04-13-2022 08:05-0400 Body weight 91.94 kg DO Singh Ball Work Phone: [facility] 04-13-2022 08:05-0400 Diastolic blood pressure 83 mm[Hg] DO Singh Ball Work Phone: [facility] 04-13-2022 08:05-0400 Heart rate 98 /min DO Singh Ball Work Phone: [facility] 04-13-2022 08:05-0400 Respiratory rate 20 /min DO Singh Ball Work Phone: [facility] 04-13-2022 08:05-0400 SaO2% (BldA) [Mass fraction] 96 % DO Singh Ball Work Phone: [facility] 04-13-2022 08:05-0400 Systolic blood pressure 147 mm[Hg] DO Singh Ball Work Phone: [facility] 01-13-2022 08:26-0400 Body temperature 97.8 [degF] DO Singh Ball Work Phone: [facility] 01-13-2022 08:26-0400 Body weight 91.62 kg DO Singh Ball Work Phone: [facility] 01-13-2022 08:26-0400 Diastolic blood pressure 79 mm[Hg] DO Singh Ball Work Phone: [facility] 01-13-2022 08:26-0400 Heart rate 82 /min DO Singh Ball Work Phone: [facility] 01-13-2022 08:26-0400 Respiratory rate 16 /min DO Singh Ball Work Phone: [facility] 01-13-2022 08:26-0400 SaO2% (BldA) [Mass fraction] 96 % DO Singh Ball Work Phone: [facility] 01-13-2022 08:26-0400 Systolic blood pressure 157 mm[Hg] DO Singh Ball Work Phone: [facility] 10-20-2021 08:57-0400 Body height 162.56 cm MD Thiago Durbin Work Phone: [facility] 10-20-2021 08:57-0400 Body temperature 98 [degF] MD Thiago Durbin Work Phone: [facility] 10-20-2021 08:57-0400 Body weight 95.11 kg MD Thiago Durbin Work Phone: [facility] 10-20-2021 08:57-0400 Diastolic blood pressure 78 mm[Hg] MD Thiago Durbin Work Phone: [facility] 10-20-2021 08:57-0400 Heart rate 87 /min MD Thiago Durbin Work Phone: [facility] 10-20-2021 08:57-0400 Respiratory rate 20 /min MD Thiago Durbin Work Phone: [facility] 10-20-2021 08:57-0400 SaO2% (BldA) [Mass fraction] 96 % MD Thiago Durbin Work Phone: [facility] 10-20-2021 08:57-0400 Systolic blood pressure 160 mm[Hg] MD Thiago Durbin Work Phone: [facility] Encounters Encounter Date Encounter Type Care Provider Facility Start: 02-12-2025 ambulatory Singh Ball Facility: [facility] Start: 01-08-2025 End: 01-08-2025 ambulatory Singh Ball DO Work Phone: [facility] Work Phone: Start: 01-08-2025 End: 01-08-2025 Patient encounter procedure Luc Bray DO -[facility] Work Phone: Start: 01-08-2025 End: 01-08-2025 Patient encounter procedure Luc Bray DO -[facility] Start: 01-08-2025 End: 01-08-2025 ambulatory Singh Ball DO Work Phone: [facility] Work Phone: Start: 12-26-2024 Registered Recurring Chiara Monaco MD -[facility] Work Phone: Start: 12-26-2024 ambulatory Chiara Hoffmann Facility:[facility] Start: 12-26-2024 End: 12-26-2024 Patient encounter procedure Mahesh Ferrari APRN -[facility] Work Phone: Start: 11-14-2024 End: 11-14-2024 ambulatory [facility] Work Phone: Start: 11-14-2024 End: 11-14-2024 Encounter for general adult medical examination without abnormal findings [facility] Start: 11-14-2024 End: 11-14-2024 Patient encounter procedure [facility] Work Phone: Start: 11-14-2024 End: 11-14-2024 Patient encounter status Singh Keo DO [facility] Start: 08-19-2024 End: 08-19-2024 Patient encounter procedure [facility] Work Phone: Start: 07-13-2023 End: 07-13-2023 ambulatory Singh Ball Other [facility] Other Start: 07-13-2023 Office outpatient vi sit 15 minutes Singh Ball [facility] Start: 07-07-2023 End: 07-07-2023 ambulatory Singh Ball Other [employer] Other Start: 07-07-2023 Office outpatient vi sit 25 minutes Singh Ball [facility] Start: 06-29-2023 End: 06-29-2023 ambulatory DO Singh Ball Work Phone: [facility] Work Phone: Start: 06-29-2023 End: 06-29-2023 Registered Recurring DO Singh Ball Work Phone: [facility] Work Phone: Start: 06-06-2023 End: 06-06-2023 ambulatory Singh Fowler Other [employer] Other Start: 06-06-2023 Telephone encounter Singh Fowler [facility] Start: 06-04-2023 End: 06-04-2023 ambulatory Singh Fowler Other [employer] Other Start: 06-04-2023 Telephone encounter Singh Fowler [facility] Start: 03-14-2023 End: 03-14-2023 ambulatory Singh Fowler Other [employer] Other Start: 03-14-2023 Telephone encounter Singh Fowler [facility] Start: 03-06-2023 End: 03-06-2023 ambulatory Singh Fowler Other [employer] Other Start: 03-06-2023 Patient encounter procedure Singh Fowler [facility] Start: 03-06-2023 Telephone encounter Singh Fowler [facility] Start: 01-13-2023 End: 01-13-2023 ambulatory Singh Fowler Other [employer] Other Start: 01-13-2023 Telephone encounter Singh Fowler [facility] Start: 01-12-2023 End: 01-12-2023 ambulatory Singh Fowler Other [employer] Other Start: 01-12-2023 Telephone encounter Singh Fowler [facility] Start: 01-11-2023 End: 01-12-2023 ambulatory Salazar MUNIZ Facility:[id number] Start: 12-28-2022 End: 12-28-2022 ambulatory DO Singh Fowler Work Phone: [facility] Work Phone: Start: 12-28-2022 End: 12-28-2022 Registered Recurring DO Singh Ball Work Phone: [facility] Work Phone: Start: 12-02-2022 End: 12-03-2022 ambulatory Salazar MUNIZ Facility:[facility] Start: 11-28-2022 End: 11-29-[address] SINGH FOWLER Facility: Start: 11-02-2022 End: 11-02-2022 ambulatory Singh Fowler Other [employer] Other Start: 11-02-2022 Encounter for genera l adult medical examination without abnormal findings Singh Fowler [facility] Start: 11-02-2022 Periodic preventive med est patient 40-64yrs Singh Fowler [facility] Start: 10-14-2022 End: 10-14-2022 ambulatory Singh Fowler Other [employer] Other Start: 10-14-2022 Telephone encounter Singh [facility]ISHNAN [facility] Start: 10-03-2022 Encounter for genera l adult medical examination without abnormal findings DR SINGH FOWLER [facility] Start: 09-28-2022 End: 09-28-2022 ambulatory Singh Fowler Other [employer] Other Start: 09-28-2022 Telephone encounter Singh KRISHNAN [facility] Start: 09-27-2022 End: 09-28-2022 Encounter for general adult medical examination without abnormal findings DR SINGH FOWLER Facility: Start: 09-27-2022 End: 09-28-[address] SINGH FOWLER [employer] Other Start: 09-27-2022 Telephone encounter [facility] Start: 09-19-2022 End: 09-19-2022 ambulatory Singh Fowler Other [employer] Other Start: 09-19-2022 Encounter for genera l adult medical examination without abnormal findings Singh Fowler [facility] Start: 09-19-2022 Telephone encounter Singh [facility]ISHNAN [facility] Start: 09-16-2022 End: 09-16-2022 ambulatory Singh Fowler Other [employer] Other Start: 09-16-2022 Office outpatient vi sit 15 minutes Singh Fowler [facility] Start: 06-29-2022 End: 06-29-2022 ambulatory DO Singh Fowler Work Phone: [facility] Work Phone: Start: 06-29-2022 End: 06-29-2022 Registered Recurring DO [facility] Start: 05-19-2022 End: 05-20-[address] SINGH FOWLER Facility:[facility] Start: 05-02-2022 End: 05-03-[address] SINGH FOWLER Facility:[facility] Start: 04-13-2022 End: 04-13-2022 ambulatory DO Singh Keo Work Phone: [facility] Work Phone: Start: 04-13-2022 End: 04-13-2022 Registered Recurring DO Singh Fowler [facility] Start: 03-17-2022 End: 03-17-2022 ambulatory Vee Wadsworth Other [employer] Other Start: 03-17-2022 Office outpatient ne w 30 minutes Vee Wadsworth [facility] Start: 03-17-2022 End: 03-17-2022 Patient encounter procedure DO Singh Fowler Work Phone: [facility] Start: 02-26-2022 End: 02-26-2022 ambulatory HARSHAD CASTELLON . Facility:[facility] Start: 02-07-2022 ambulatory Salazar MUNIZ Facility:[facility] Start: 01-18-2022 End: 01-19-[address] ANDREW MORRIS Facility:[facility] Start: 01-13-2022 End: 01-13-2022 Registered Recurring DO Singh Fowler [facility] Start: 01-02-2022 End: 01-02-[address] ANDREW MORRIS Facility:[facility] Start: 12-06-2021 End: 12-07-[address] SINGH FOWLER Facility:[facility] Start: 10-20-2021 End: 10-20-2021 Registered Recurring MD Thiago Durbin Work Phone: [facility] Start: 03-08-2021 End: 06-01-2021 Pre-admission assessment Daniel Lopes [facility] Procedures Date Procedure Procedure Detail Performing Clinician Start: 01-08-2025 X-ray of right knee, four views Singh Fowler DO Work Phone: Start: 12-19-2024 Screening mammograph y of bilateral breasts Singh Keo Work Phone: Start: 03-17-2022 X-ray of right knee DO [...] Treatment Date Care Activity Detail Author Start: 01-08-2025 X-ray of right knee, four views XR knee RT 4V* [facility] Start: 01-08-2025 XR Knee - right 4 Views [facility] Start: 12-26-2024 Patient referral [facility] Work Phone: Start: 10-20-2021 [facility] Start: 04-06-2021 [facility] Comprehensive metabo lic 2000 panel - Serum or Plasma [facility] Computed tomography for radiotherapy planning [facility] DXA Skeletal system. axial Views for bone density [facility] DXA Skeletal system. axial Views for bone density [facility] MG Breast - bilatera l Diagnostic [facility] MG Breast - bilatera l Diagnostic [facility] Patient referral [facility] Work Phone: [facility] Immunizations Immunization Date Immunization Notes Care Provider Fa cility 08-06-2020 COVID-19 mRNA-1273 (Moderna) MD Thiago Durbin Work Phone: [facility] 06-16-2020 COVID-19 mRNA-1273 (Moderna) MD Thiago uDrbin Work Phone: [facility] 04-24-2013 tetanus and diphther ia toxoids, adsorbed, preservative free, for adult use (5 Lf of tetanus toxoid and 2 Lf of diphtheria toxoid) Singh Fowler Other [facility] Payers Date Payer Category Payer [id number] 2021 Self-pay [id number] 2021 Unknown [id number] 2019 Unknown [id number] 1959 Self-pay [id number] 1958 Unknown [id number] 2.16.84 [id number] 1958 Unknown [id number] 2.16.84 [id number] 1958 Unknown [id number] .16.84 [id number] 1958 Unknown [id number] 2.16.84 [id number] 1958 Unknown [id number] 2.16.84 0.1.125259.3.579.2.593 1958 Unknown [id number] 2.16.84 0.1.400987.3.579.2.593 1958 Unknown [id number] 2.16.84 0.1.122301.3.579.2.593 1958 Unknown [id number] 2.16.84 0.1.733133.3.579.2.593 1958 Unknown [id number] 2.16.8 [id number] 1958 Unknown [id number] 2.16.8 40.1.301810.3.579.2.727 1958 Unknown [id number] 2.16.8 [id number] Unknown [id number] 2.16.84 [id number] Unknown [id number] 2.16.84 [id number] Unknown [id number] 2.16.8 [id number] Unknown [id number] 2.16.8 [id number] Unknown [id number] 2.16.8 [id number] Social History Date Type Detail Facility Start: 03-02-2021 Tobacco smoking status Never [facility] Start: 10-20-2021 End: 11-14-2024 Tobacco smoking status Never smoked tobacco (finding) [facility] Sex Assigned At Female [facility] Start: 1960 Sex Assigned At Female [facility] Start: 11-14-2024 Sex Female (finding) [facility] Clinical Notes 03-16-2021 to 11-14-2024 Note Date & Type Note Facility 11-14-2024 Evaluation note Diagnosis Onset Date Resolution Chronic venous insufficiency acute November 14, 2024 8: 14am Elevated cholesterol acute November 14, 2024 8:14am Obesity acute November 14, 2024 8:14am Primary hypertension acute November 14, 2024 8:14am Pulmonary nodule, right acute M ay 2024 8:14am Type 2 diabetes mellitus with hyperglycemia acute November 14, 2024 8:14am 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 November 14 8:14am Welcome to Medicare preventive visit noneactive November 14, 2024 8 :14am Right knee pain acute December 10:37am Encounter for monitoring aromatase inhibitor therapy chronic December 26, 2024 10:37am 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 December 26 10:37am Osteoporosis screening chronic 2024 10:37am Encounter for monitoring aromatase inhibitor therapy chronic December 26, 2024 10:38am 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 December 26 10:38am Osteoporosis screening chronic [facility] 2024 10:38am Diabetes mellitus type 2, controlled, without complications deleted December 26, 2024 10:38am Pulmonary nodule less than 6 mm determined by computed tomography of lung deleted December 26, 2024 10:38am Primary osteoarthritis of right knee acute January 08, 2025 8:13am [facility] Work Phone: 1(361) 821-798202-03-2025 Evaluation note* Diagnosis Onset Date Resolution Status Admit Date Primary hypertension acute Febr [id number] 10:16am Acute sinusitis noneactive August 19, 2024 10:16am Chronic venous insufficiency acute November 14, 2024 8:14am Elevated cholesterol acute November 14, 2024 8:14am Obesity acute November 14, 2024 8:14am Primary hypertension acute November 14, 2024 8:14am Pulmonary nodule, right acute M ay 2024 8:14am Type 2 diabetes mellitus wit h hyperglycemia acute November 14, 2024 8: 14am 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 [facility] Other 12-22-2023 Evaluation note* Encounter Date Diagnosis [...] index [BMI] 31.0-31.9, adult (ICD-10 - Z68.31) [facility] Other 11-21-2023 Evaluation note* Encounter Date Diagnosis Assessment Notes Treatment Notes Treatment Clinical Notes May, Primary hypertension (ICD-10 - I10) [facility] Other 11-19-2023 Evaluation note* Encounter Date Diagnosis Assessment Notes Treatment Notes Treatment Clinical Notes May, Type 2 diabetes mellitus with hyperglycemia, without long-term current use of insulin (ICD-10 - E11.65) May, Primary hypertension (ICD-10 - I10) [facility] Other 08-21-2023 Evaluation note* Encounter Date Diagnosis [...] index [BMI] 31.0-31.9, adult (ICD-10 - Z68.31) [facility] Other 06-30-2023 Evaluation note* Encounter Date Diagnosis Assessment Notes Treatment Notes Treatment Clinical Notes Dec, Essential hypertension (ICD-10 - I10) [facility] Other 06-14-2023 Progress note Author Chiara Hoffmann [facility] December 28, 2022 9:59am Note Date/Time December 28, 2022 9:34 am [facility] [place] [address] Hem/Onc Follow Up Note - OP Signed Patient: Renuka Caceres MR#: [id number] : 1960 Acct:[id number] Age/Sex: 62 / F Type: REG RCR [...] was refilled today. Her mammogramwas performed at [facility] on 11/28/2022 showed heterogeneously dense breasts [...] regularly. Last DEXA scan was normal at [facility] 01/18/2022 will be due in 1 year. [...] on letrozole therapy for T2 N0 M0 ER/IN positive breast cancer, status postlumpectomy in February [...] on self-exam. We reviewed her mammogram from [facility] performed 10/06/2021 which returned with heterogeneously [...] this month and has these done at [facility]. Eliazar get this record once it's completed. [...] of 6 lymph nodes positive. ER and IN was positive, H ER 2 -. [employer] genetic testing was negative for BRCA 1 and 2. Oncotype DX showed low risk disease. She was started on radiation March 2021. Her family doctor is Dr. Juan Fowler and she was operated on by Dr. Salazar Kimble. CANTWELL: Now 62-year-old post-menopausal female- had menopause at [...] was started on Arimidex May 2021 (at [facility]). 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 Lopes at [facility]. 07/20/2021: Stopped anastrozole due to severe hot [...] have her mammogram done this month at [facility] and will have results sent to us. [...] for coordination of care (as documented) and lfru-hk-ciqv counseling of patient and/or family. Dictated By: Chiara Hoffmann MD DD/ 0933 Signed By: <Electronically signed by MD Chiara Hoffmann> 12/28/22 0[address] [facility] Work Phone: 1(658) 274-103805-19-2023 NoteChief Complaint consultation for screening colonoscopy HPI [...] neoplasm of (more content not included)...[facility] above:Result Comment: Electronically Signed By: SANTOSH DUBOSE, Salazar Quintero\.luis\Date and Time Signed: 12/02/22 14:59 [id number] Reason for referral (narrative)* Reason 12/02/22 Referral for screening colonoscopy in asymptomatic high risk patient. Diagnosis 1 Encounter for screen ing colonoscopy (Z12.11) Referral Organization [facility] Referring Provider First Name Singh Referring Provider Last Name Keo Referring Provider Specialty Internal Me dicine Referred Organization [facility] Referred Provider Salazar Muniz Referred Address [address] [place],[address] Referred Provider Specialty Surgery Referral Priority Routine Referral Appointment Date 2022-12-02 General Notes Kira Tran 12:38:54 PM >received today Kira Tran 11/03/2022 12:41:54 PM >notes locked, attachments made, referral faxed Kira Tran 11/10/2022 11:14:17 AM >faxed first attempt letter Kira Tran 11/14/2022 04:13:52 PM >received fax with appt date Kira Tran 12/08/2022 06:10:37 AM >notes in chart and reviewed. closing referral Clinical Notes [id number] [facility] Other 04-19-2023 Evaluation note* Encounter Date Diagnosis [...] to family hx of CRC. Recommend colonoscopy. [facility] Other 03-06-2023 Evaluation note* Encounter Date Diagnosis Assessment Notes Treatment Notes Treatment Clinical Notes Sep, Wellness examination (ICD-10 - Z00.00) [facility] Other 03-03-2023 Evaluation note* Encounter Date Diagnosis Assessment Notes Treatment Notes Treatment Clinical Notes Sep, Acute non-recurrent maxillary sinusitis (ICD-10 - J01.00) Instructed to use Robitussin or Mucinex for cough, saline or Flonase NS for congestion, Tylenol for pain and fever. Sep, Encounter by telehealth for suspected COVID-19 (ICD-10 - Z20.822) Aware of quarantine guidelines. Retest in 2 days if symptoms worsen [facility] Other 12-14-2022 Progress note Author Giovanna [facility]mobile [facility] June 29, 2022 9:03am Note Date/Time June 29, 2022 8:52am [facility] [place] [address] Hem/Onc Follow Up Note - OP Signed Patient: Renuka Caceres MR#: [id number] : 1960 Acct:[id number] Age/Sex: 61 / F Type: REG RCR [...] on letrozole therapy for T2 N0 M0 ER/IN positive breast cancer, status postlumpectomy in February [...] on self-exam. We reviewed her mammogram from [facility] performed 10/06/2021 which returned with heterogeneously [...] this month and has these done at [facility]. Eliazar get this record once it's completed. [...] of 6 lymph nodes positive. ER and IN was positive, H ER 2 -. [employer] genetic testing was negative for BRCA 1 and 2. Oncotype DX showed low risk disease. She was started on radiation March 2021. Her family doctor is Dr. Juan Fowler and she was operated on by Dr. Salazar Kimble. CANTWELL: 60-year-old post-menopausal female- had menopause at age [...] was started on Arimidex May 2021 (at [facility]). 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 Lopes at [facility]. 07/20/2021: Stopped anastrozole due to severe hot [...] have her mammogram done this month at [facility] and will have results sent to us. [...] for coordination of care (as documented) and zwjz-nf-earn counseling of patient and/or family. Dictated By: Giovanna Shelton APRN DD/ 0846 Signed By: <Electronically signed by YEFRI Shelton> 06/29/22 0903 [facility] Work Phone: 1(303) 380-940409-28-2022 Progress note Author Giovanna Shelton [facility] April 13, 2022 9:15am Note Date/Time April 13, 2022 8:39am [facility] [place] [address] Hem/Onc Follow Up Note - OP Signed Patient: Renuka Caceres MR#: [id number] : 1960 Acct:[id number] Age/Sex: 61 / F Type: REG RCR [...] on letrozole therapy for T2 N0 M0 ER/IN positive breast cancer, status postlumpectomy in February [...] on self-exam. We reviewed her mammogram from [facility] performed 10/06/2021 which returned with heterogeneously [...] this month and has these done at [facility]. Wewill get this record once it's completed. [...] of 6 lymph nodes positive. ER and IN was positive, H ER 2 -. [employer] genetic testing was negative for BRCA 1 and 2. Oncotype DX showed low risk disease. She was started on radiation March 2021. Her family doctor is Dr. Juan Fowler and she was operated on by Dr. Salazar Kimble. CANTWELL: 60-year-old post-menopausal female- had menopause at age [...] stage T2 N0 M0 invasive lobular carcinoma, Butler grade 2 with associated ductal carcinoma in [...] was started on Arimidex May 2021 (at [facility]). Did not tolerated/t hot flashes, so switched [...] PO BID 03/11/21 [History Confirmed 04/13/22] hyaluronic sodayi-ovgnlqlbj-vhlz vera extract topical gel (RadiaPlexRx topical gel) [...] stage T2 N0 M0 invasive lobular carcinoma, Butler grade 2 with associated ductal carcinoma in [...] of May [address] Lopes at [facility]. 07/20/2021: Stopped anastrozole due to severe hot [...] have her mammogram done this month at [facility] and will have results sent to us. [...] for coordination of care (as documented) and kzxf-et-sfxb counseling of patient and/or family. Dictated By: Giovanna Shelton APRN DD/ 0826 Signed By: <Electronically signed by YEFRI Shelton> 04/13/22 0915 [facility] Work Phone: 1(748) 305-660809-01-2022 Evaluation note* Encounter Date Diagnosis Assessment Notes [...] as well as use of voltaren gel. [facility] Other 06-30-2022 Progress note Author Chiara Hoffmann [facility] January 13, 2022 12:36pm Note Date/Time January 13, 2022 8:34 am [facility] [place] [address] Hem/Onc Follow Up Note - OP Signed Patient: Renuka Caceres MR#: [id number] : 1960 Acct:[id number] Age/Sex: 61 / F Type: REG RCR [...] on letrozole therapy for T2 N0 M0 ER/IN positive breast cancer, status postlumpectomy in February [...] on self-exam. We reviewed her mammogram from [facility] performed 10/06/2021 which returned with heterogeneously [...] this month and has these done at [facility]. Wewill get this record once it's completed. [...] of 6 lymph nodes positive. ER and IN was positive, H ER 2 -. [employer] genetic testing was negative for BRCA 1 and 2. Oncotype DX showed low risk disease. She was started on radiation March 2021. Her family doctor is Dr. Juan Fowler and she was operated on by Dr. Salazar Kimble. CANTWELL: 60-year-old post-menopausal female- had menopause at age [...] stage T2 N0 M0 invasive lobular carcinoma, Butler grade 2 with associated ductal carcinoma in [...] was started on Arimidex May 2021 (at [facility]). Did not tolerated/t hot flashes, so switched [...] for environmental allergies and food allergies. [facility] - History Attestation statement: The following [...] PO BID 03/11/21 [History Confirmed 01/13/22] hyaluronic qzcfii-quwtujlnv-nkbq vera extract topical gel (RadiaPlexRx) 1 applicTOPICAL [...] of May [address] Lopes at [facility]. 07/20/2021: Stopped anastrozole due to severe hot [...] have her mammogram done this month at [facility] and will have results sent to us. [...] for coordination of care (as documented) and dorr-ii-avvb counseling of patient and/or family. Dictated By: Chiara Hoffmann MD DD/ Signed By: <Electronically signed by MD Chiara Hoffmann> 01/13/22 5114 [facility] Work Phone: 1(642) 673-622606-30-2022 Progress note Author Darshan Solomon [facility] January 13, 2022 9:17am Note Date/Time January 13, 2022 8:59 am [facility] [place] [address] Rad Onc Follow Up Note - OP Signed Patient: Renuka Caceres MR#: [id number] : 1960 Acct:[id number] Age/Sex: 61 / F Type: REG RCR [...] pathological stage pT2 pN0 M0, ER positive, IN positive and HER-2/rikki negative, stage Ib. Patient [...] stage T2 N0 M0 invasive lobular carcinoma, Butler grade 2with associated ductal carcinoma in situ [...] signed by Darshan Solomon MD> 01/13/22 0917 [facility] Work Phone: 1(883) 603-749106-19-2022 NotePROCEDURE: XR FINGER MIN 2 VIEWS HISTORY: [...] Electronically authenticated by: ANDREW MORRIS Date: 2022-01-02 10:32[facility]04-06-2022 Progress note Author Giovanna Shelton [facility] October 20, 2021 12:49pm Note Date/Time October 20, 2021 9:21 am [facility] [place] [address] Hem/Onc Follow Up Note - OP Signed Patient: Renuka Caceres MR#: [id number] : 1960 Acct:[id number] Age/Sex: 60 / F Type: REG RCR [...] this month and has these done at [facility]. Eliazar get this record once it's completed. [...] of 6 lymph nodes positive. ER and IN was positive, H ER 2 -. [employer] genetic testing was negative for BRCA 1 and 2. Oncotype DX showed low risk disease. She was started on radiation March 2021. Her family doctor is Dr. Juan fowler and she was operated on by Dr. Salazar Kimble. CANTWELL: 60-year-old post-menopausal female- had menopause at age [...] was started on Arimidex May 2021 (at [facility]). Did not tolerated/t hot flashes, so switched to letrozole 08/11/2021 -- Will continue letrozole for 5 years (May 2026) [facility] - Medical History Medical History: Medical [...] PO BID 03/11/21 [History Confirmed 10/20/21] hyaluronic bzlwwg-dvrwhuaiu-qpsi vera extract topical gel (RadiaPlexRx) 1 applicTOPICAL [...] stage T2 N0 M0 invasive lobular carcinoma, Butler grade 2 with associated ductal carcinoma in [...] of May [address] Lopes at [facility]. 07/20/2021: Stopped anastrozole due to severe hot [...] have her mammogram done this month at [facility] and will have results sent to us. [...] for coordination of care (as documented) and cnkj-tn-iqol counseling of patient and/or family. Dictated By: Giovanna Shelton APRN DD/ 0921 Signed By: <Electronically signed by YEFRI Shelton> 10/20/21 1249 [facility] Work Phone: 1([phone]) 668-606201-04-2022 Progress note Author Daniel Lopes [facility] July 20, 2021 10:06am Note Date/Time July 20, 2021 9: 54am [facility] [place] [id number] Hem/Onc Follow Up Note - OP Signed Patient: Renuka Caceres MR#: [id number] : 1960 Acct:[id number] Age/Sex: 60 / F Type: REG RCR [...] of 6 lymph nodes positive. ER and IN was positive, H ER 2 -. [employer]ae [...] PO BID 03/11/21 [History Confirmed 07/20/21] hyaluronic urfqio-khupphfmj-schz vera extract topical gel (RadiaPlexRx) 1 applicTOPICAL [...] for coordination of care (as documented) and thwb-ld-zzks counseling of patient and/or family. Dictated By: Daniel Lopes MD DD/ 0954 Signed By: <Electronically signed by MD Daniel Lopes> 07/20/21 0105 [facility] Work Phone: 1(534) 719-975912-09-2021 Progress note Author Thiago Durbin [facility] June 24, 2021 10:35am Note Date/Time June 24, 2021 1 0:26am [facility] [place] [address] Rad Onc Follow Up Note - OP Signed Patient: Renuka Caceres MR#: [id number] : 1960 Acct:[id number] Age/Sex: 60 / F Type: REG RCR Copies to: DO Daniel Calvert MD Michael R Nill, MD FACS~ Subjective - Service Date/Time Date: 06/24/21 Time: 10:15 - Diagnosis Invasive lobular carcinoma of the upper medial quadrant of the right breast, grade 1 with associated DCIS and LCIS, pathological stage pT2 pN0 M0, ER positive, IN positive and HER-2/rikki negative, stage Ib. - [...] pathological stage pT2 pN0 M0, ER positive, IN positive and HER-2/rikki negative, stage Ib. Assessment [...] quadrant, stage pT2 pN0 M0, ER positive, IN positive and HER-2 negative, stage Ib had [...] than 30 minutes I spent 20 minutes dhef-wz-wmda time with this patient and more than [...] signed by Thiago Durbin MD> 06/24/21 1035 [facility] Work Phone: 1([phone]) 878-353209-21-2021 Progress note Author Daniel Lopes [facility] April 06, 2021 9:12am Note Date/Time April 06, 2021 9:10am [facility] [place] [address] Hem/Onc Follow Up Note - OP Signed Patient: Renuka Caceres MR#: [id number] : 1960 Acct:[id number] Age/Sex: 60 / F Type: REG RCR [...] today and starting radiation. She is from [facility] and will follow up with me in 2 months to start adjuvant radiationtherapy. This is a very nice 60-year-old female with a lobular carcinoma of the breast who I saw at [facility]. Oncotype DX was done which showed lowrisk disease and no indications for chemotherapy. Because of strong family history, we did do [employer] genetic testing which was negative. She will be getting radiation simulation today April 06, 2021 and then follow-up with me in 2 months to start adjuvant hormonal therapy at [facility]. Subjective/ROS - Narrative: Negative review of systems today [facility] - Medical History Medical History: Medical [...] and see me in 2 months in [place] to start adjuvant hormonal therapy with an aromatase similar for 5 years. - Time with Patient Coordination of Care & Counseling Time: Greater than 50% of time spent with patient was for coordination of care (as documented) and igob-sh-uxfa counseling of patient and/or family. Dictated By: Daniel Lopes MD DD/ 6 Signed By: <Electronically signed by MD Daniel Lopes> 04/06/21911 [facility] Work Phone: 1(126) 199-657108-31-2021 Consult note Author Thiago Durbin [facility] March 16, 2021 3:14pm Note Date/Time March 12, 2021 11 :51am [facility] [place] [address] Rad Onc Consult Note - OP Signed with Arron Patient: Renuka Caceres MR#: [id number] : 1960 Acct:[id number] Age/Sex: 60 / F Type: REG RCR [...] pathological stage pT2 pN0 M0, ER positive, IN positive and HER-2/rikki negative, stage Ib. Chief [...] stage T2 N0 M0 invasive lobular carcinoma, Butler grade 2 with associated ductal carcinoma in [...] pathological stage pT2 pN0 M0, ER positive, IN positive and HER-2/rikki negative, stage Ib. Assessment [...] quadrant, stage pT2 pN0 M0, ER positive, IN positive and HER-2 negative, stage Ib had [...] Dr. Lopes's care as her ER and IN receptors are strongly positive. Total Time Spent with Patient: Greater than 30 minutes I spent 50 minutes zeuq-ai-brie time with this patient and more than [...] <Electronically signed by Thiago Durbin MD> 03/12/21 6862 [facility] Work Phone: Evaluation + Plan note No data available for this section [facility] Diagnosis Onset Date Resolution Status Malignant neoplasm of upper- inner quadrant of right female breast acute [facility] Work Phone: Evaluation note* Diagnosis Onset Date Resolution Status Malignant neoplasm of upper- inner quadrant of right female breast chronic Osteoporosis screening [facility] Work Phone: Evaluation note* Diagnosis Onset Date Resolution Status Encounter for monitoring aromatase inhibitor therapy chronic Malignant neoplasm of upper- inner quadrant of right female breast chronic Osteoporosis screening [facility] Work Phone: Evaluation noteNo [employer] Other Evaluation note* Diagnosis Onset Date Resolution Status Diabetes mellitus type 2, co ntrolled, without complications chronic Encounter for monitoring aromatase inhibitor therapy chronic Malignant neoplasm of upper- inner quadrant of right female breast chronic Osteoporosis screening [facility] ic Pulmonary nodule less than 6 mm determined by computed tomography of lung chronic [facility] Work Phone: [employer] general Narrative - Reported* Type Description Date Medical History Hypertension Medical History diabetes mallitus Medical History breast cancer Surgical History tonsillectomy Surgical History C section Surgical History left ORIF by [employer] Other Hisrsye general Narrative - Reported* Type Description Date [...] C section Surgical History left ORIF by [employer] Other history general Narrative - Reported* Type [...] Dr. Aleman Hospitalization History see surgical hx [facility] Other History general Narrative - Reported* Type Description [...] Colonoscopy 12/2022 Hospitalization History see surgical hx [facility] Other [employer] general Narrative - Reported* Type Description Date [...] Colonoscopy 12/2022 Hospitalization History see surgical hx [facility] [facility] Other Hospital Discharge instructions No data available for this section [facility] April 13, 2022 9:15am Note Date/Time April 13, 2022 8:39am [facility] [place] [id number] Hem/Onc Follow Up Note - OP Signed Patient: Renuka Caceres MR#: [id number] : 1960 Acct:[id number] Age/Sex: 61 / F Type: REG RCR [...] on letrozole therapy for T2 N0 M0 ER/IN positive breast cancer, status postlumpectomy in February [...] on self-exam. We reviewed her mammogram from [facility] performed 10/06/2021 which returned with heterogeneously [...] this month and has these done at [facility]. Eliazar get this record once it's completed. [...] of 6 lymph nodes positive. ER and IN was positive, H ER 2 -. [employer] genetic testing was negative for BRCA 1 and 2. Oncotype DX showed low risk disease. She was started on radiation March 2021. Her family doctor is Dr. Juan Fowler and she was operated on by Dr. Salazar Kimble. CANTWELL: 60-year-old post-menopausal female- had menopause at age [...] was started on Arimidex May 2021 (at [facility]). Did not tolerated/t hot flashes, so switched [...] PO BID 03/11/21 [History Confirmed 04/13/22] hyaluronic bjxpqx-bhihsyuyf-duph vera extract topical gel (RadiaPlexRx topical gel) [...] stage T2 N0 M0 invasive lobular carcinoma, Butler grade 2 with associated ductal carcinoma in [...] stage T2 N0 M0 invasive lobular carcinoma, Butler grade 2 with associated ductal carcinoma in [...] of May [address] Lopes at [facility]. 07/20/2021: Stopped anastrozole due to severe hot [...] have her mammogram done this month at [facility] and will have results sent to us. [...] for coordination of care (as documented) and hhwq-wn-sapz counseling of patient and/or family. Dictated By: Giovanna Shelton APRN DD/ 0826 Signed By: <Electronically signed by YEFRI Shelton> 04/13/22 9267 [facility] Work Phone: Progress note Author Giovanna Shelton [facility] June 29, 2022 9:03am Note Date/Time June 29, 2022 8:52am [facility] [address] [address] Hem/Onc Follow Up Note - OP Signed Patient: Renuka Caceres MR#: [id number] : 1960 Acct:[id number] Age/Sex: 61 / F Type: REG RCR [...] on letrozole therapy for T2 N0 M0 ER/IN positive breast cancer, status postlumpectomy in February [...] on self-exam. We reviewed her mammogram from [facility] performed 10/06/2021 which returned with heterogeneously [...] this month and has these done at [facility]. Wewill get this record once it's completed. [...] of 6 lymph nodes positive. ER and IN was positive, H ER 2 -. [employer] genetic testing was negative for BRCA 1 and 2. Oncotype DX showed low risk disease. She was started on radiation March 2021. Her family doctor is Dr. Juan Fowler and she was operated on by Dr. Salazar Kimble. CANTWELL: 60-year-old post-menopausal female- had menopause at age [...] was started on Arimidex May 2021 (at [facility]). Did not tolerated/t hot flashes, so switched [...] PO BID 03/11/21 [History Confirmed 06/29/22] hyaluronic cczilq-nqewtzafp-xvng vera extract topical gel (RadiaPlexRx topical gel) [...] stage T2 N0 M0 invasive lobular carcinoma, Butler grade 2 with associated ductal carcinoma in [...] stage T2 N0 M0 invasive lobular carcinoma, Butler grade 2 with associated ductal carcinoma in [...] of May [address] Lopes at [facility]. 07/20/2021: Stopped anastrozole due to severe hot [...] have her mammogram done this month at [facility] and will have results sent to us. [...] for coordination of care (as documented) and anri-hp-vxrg counseling of patient and/or family. Dictated By: Giovanna Shelton APRN DD/ [id number] Signed By: <Electronically signed by YEFRI Shelton> 06/29/22 0903 [facility] Work Phone: Progress note Author Chiara Hoffmann [facility] December 28, 2022 9:59am Note Date/Time December 28, 2022 9:34 am [facility] [place] [address] Hem/Onc Follow Up Note - OP Signed Patient: Renuka Caceres MR#: [id number] : 1960 Acct:[id number] Age/Sex: 62 / F Type: REG RCR [...] was refilled today. Her [facility]was [facility] on [facility]/28/2022 showed heterogeneously dense breasts [...] regularly. Last DEXA scan was normal at [facility] 01/18/2022 will be due in 1 year. [...] on letrozole therapy for T2 N0 M0 ER/IN positive breast cancer, status postlumpectomy in February [...] on self-exam. We reviewed her mammogram from [facility] performed 10/06/2021 which returned with heterogeneously [...] this month and has these done at [facility]. Wewill get this record once it's completed. [...] of 6 lymph nodes positive. ER and IN was positive, H ER 2 -. [facility] genetic testing was negative for BRCA 1 and 2. Oncotype DX showed low risk disease. She was started on radiation March 2021. Her family doctor is Dr. Juan Fowler and she was operated on by Dr. Salazar Kimble. CANTWELL: Now 62-year-old post-menopausal female- had menopause at [...] was started on Arimidex May 2021 (at [facility]). Did not tolerated/t hot flashes, so switched [...] for environmental allergies and food allergies. [facility] - History Attestation statement: The following [...] labs for review - Impressions Imaging from [facility] reviewed: 11/28/2022: 3D diagnostic mammogram Breast [...] stage T2 N0 M0 invasive lobular carcinoma, Butler grade 2 with associated ductal carcinoma in [...] stage T2 N0 M0 invasive lobular carcinoma, Butler grade 2 with associated ductal carcinoma in [...] of May [address] Lopes at [facility]. 07/20/2021: Stopped anastrozole due to severe hot [...] have her mammogram done this month at [facility] and will have results sent to us. [...] for coordination of care (as documented) and dqhm-zo-frcv counseling of patient and/or family. Dictated By: Chiara Hoffmann MD DD/ [id number] Signed By: <Electronically signed by MD Chiara Hoffmann> 12/28/22 0959 [facility] Work Phone: Reason for referral (narrative)* Reason Referral for screeni ng colonoscopy in asymptomatic high risk patient. Diagnosis 1 Encounter for screen ing colonoscopy (Z12.11) Referral Organization [facility] samuel Referring Provider First Name Singh Referring Provider Last Name Keo Referring Provider Specialty Internal Me humberto Referred Provider Salazar Muniz Referred Provider Specialty Surgery Referral Priority Routine [employer] Other Chief Complaint and Reason for Visit [...] mm determined by computed tomography of lung Chief Complaint Admit Date sore throat, ear pain, covid neg Februar y 2024 10:16am Wellness November 14, 2024 8:14am Reason for Visit Admit Date Primary hypertension August 19, 2024 10:16am Acute sinusitis August 19, 2024 1 0:16am Chronic venous insufficiency November 14 8:14am Elevated cholesterol November 14, 2024 8:14a m Obesity November 14, 2024 8:14am Primary hypertension November 14, 2024 8:14a m Pulmonary nodule, right November 14, 2024 8: 14am Type 2 diabetes mellitus with hyperglyce denise November 14, 2024 8:14am Malignant neoplasm of upper- inner quadrant of right female breast November 14, 2024 8:14am Welcome to Medicare preventive visit November 14, 2024 8:14am Chief Complaint Admit Date Wellness November 14, 2024 8:14am Follow Up December 26, 2024 10:3 7am Rt Breast Cancer December 26, 2024 10:3 8am M17.11 - Unilateral primary osteoarthrit is, right January 08, 2025 7:12am CONSULT MAHESH FERRARI RT KNEE PAIN NX, Ju ne 2024 8:13am Reason for Visit Admit Date Chronic venous insufficiency November 14 8:14am Elevated cholesterol November 14, 2024 8:14a m Obesity November 14, 2024 8:14am Primary hypertension November 14, 2024 8:14a m Pulmonary nodule, right November 14, 2024 8: 14am Type 2 diabetes mellitus with hyperglyce denise November 14, 2024 8:14am Malignant neoplasm of upper- inner quadrant of right female breast November 14, 2024 8:14am Welcome to Medicare preventive visit November 14, 2024 8:14am Right knee pain December 26, 2024 10:3 7am Encounter for monitoring aromatase inhib itor therapy December 26, 2024 10:37am Malignant neoplasm of upper- inner quadrant of right female breast December 26, 2024 10:37am Osteoporosis screening December 26, 2024 1 0:37am Encounter for monitoring aromatase inhib itor therapy December 26, 2024 10:38am Malignant neoplasm of upper- inner quadrant of right female breast December 26, 2024 10:38am Osteoporosis screening December 26, 2024 1 0:38am Diabetes mellitus type 2, controlled, wi thout complications December 26, 2024 10:38am Pulmonary nodule less than 6 mm determined by computed tomography of lung December 26, 2024 10:38am Primary osteoarthritis of right knee Wu e 2024 8:13am Family History No Family History Records Found Relationship Condition Age at Onset Recorded Date/T mary alice sister No pertinent family history Unknown family member No pertinent family history Unknown Advance Directives No Advanced Directives Records Found Advance Directive Response Recorded Date/ Time Advance Directives No March 3:52pm Advance Directive Response Recorded Date/ Time Advance Directives No March 2:52pm Advance Directive Response Recorded Date/ Time Advance Directives No November 08, 2 024 10:32am Summary Purpose Additional Source Comments Care Teams (unrecognized sec tion and content) Team Status: Active Member Role Status Dates Singh Fowler DO Primary Care Provider Active Team Status: Inactive Member Role Status Dates Singh Fowler DO Primary Care Provide r, Attending Provider Active Start: August 19, 2024 End: August 19, 2024 Team Status: Inactive Member Role Status Dates Singh Ball , DO Primary Care Provide r, Attending Provider Active Start: November 14, 2024 End: November 14, 2024 Team Status: Active Member Role Status Dates Thiago Durbin MD Attending Provider Active Singh Fowler DO Primary Care Provider Active Daniel Lopes MD Referring Provider Active Team Status: Active Member Role Status Dates Singh Fowler DO Primary Care Provider Active Daniel Lopes MD Referring Provider Active Chiara Hoffmann MD Attending Provider Active Team Status: Inactive Member Role Status Dates Singh Fowler DO Primary Care Provider Active Naga Acuna MD Attending Provider Active Team Status: Inactive Member Role Status Dates Singh Fowler DO Primary Care Provider Active Start: November 14, 2024 End: November 14, 2024 Singh Fowler DO Attending Provider Active Sta rt: November 14, 2024 End: November 14, 2024 Team Status: Inactive Member Role Status Dates Singh Fowler DO Primary Care Provider Active Start: December 26, 2024 End: December 26, 2024 Mahesh Ferrari APRN Attending Provider Active Start: December 26, 2024 End: December 26, 2024 Team Status: Active Member Role Status Dates Singh Fowler DO Primary Care Provider Active Start: December 26, 2024 Daniel Lopes MD Referring Provider Active Sta rt: December 26, 2024 Chiara Hoffmann MD Attending Provider Active Start: December 26, 2024 Team Status: Active Member Role Status Dates Singh Fowler DO Primary Care Provider Active Start: January 08, 2025 Luc Bray DO Attending Provider Active S tart: January 08, 2025 Team Status: Inactive Member Role Status Dates Singh Fowler DO Primary Care Provider Active Start: January 08, 2025 End: January 08, 2025 Luc Bray , Attending Provider Active S tart: January 08, 2025 End: January 08, 2025 Goals (unrecognized section and content) Goals may be documented in a n alternate section REASON FOR VISIT (unrecogniz ed section and content) Right Knee [phone] COVID negative, possible sinus infectionNo InformationNo InformationRefill6 MONTH CHECK UPLab ResultsRefillNo InformationNo Information4 month Follow upNo InformationCT scan6 MONTH CHECK UPLab ResultsNo InformationNo Information4 month Follow upsore throat, cough , testing for COVID INFORMATION SOURCE (unrecogn ized section and content) DATE CREATED AUTHOR 11/29/2022 Moises peoples DATE CREATED AUTHOR AUTHOR'S ORGANIZ ATION 01/13/2023 [facility] DATE CREATED AUTHOR AUTHOR'S VLADIMIR ATION 02/14/2025 [facility] FOR RECORDS PERTAINING TO PATIENTS [...] BE BASED ON THE PRIMARY CLINICAL RECORDS. [facility]. provides no warranty or guarantee of the accuracy or completeness of information in this document.
--- NOTE | 2025-02-16 20:57 | ED.BACK1 ---
HPI HPI - Back Pain/Injury General Chief Complaint: Back Pain/Injury Stated Complaint: NECK/BACK PAIN Time Seen by Provider: 02/16/25 20:40 Source: patient Mode of arrival: walk-in History of Present Illness HPI Narrative: Patient presents to the ED with a complaint of left-sided neck and back pain. She states has been going on for 3 days now. She states it feels tight and spasm. Originally it started hurting on the upper part of her neck on the back that hurt with movement now it is shooting down around her scapula. She denies numbness or tingling in her extremities. She is able to get in a position of comfort but many of her neck movements are very painful. She denies any chest pain or shortness of breath. She denies lightheadedness or dizziness no headache. She does not have any other symptoms. She has tried some acetaminophen with no relief. Pertinent past history: Denies prior back pain, back surgery or neurological deficit Onset (ago): day(s) Timing: Reports intermittent Severity: moderate Similar Symptoms Previously: No Quality: Reports sharp and spasming Location: Reports left upper back Radiation: Reports none Exacerbating factors: Reports movement Related Data Home Medications ?Medication ?Instructions ?Recorded ?Confirmed amlodipine 5 mg tablet 5 mg PO DAILY 01/11/23 01/11/23 atorvastatin 40 mg tablet 40 mg PO DAILY 01/11/23 10/30/23 benazepril 40 mg tablet 40 mg PO DAILY 01/11/23 01/11/23 hydrochlorothiazide 25 mg tablet 25 mg PO DAILY 01/11/23 01/11/23 letrozole 2.5 mg tablet 2.5 mg PO Q24H 01/11/23 10/30/23 Previous Rx's ?Medication ?Instructions ?Recorded diclofenac potassium 50 mg tablet 50 mg PO Q12H PRN pain #20 tabs 02/16/25 methocarbamol 500 mg tablet 500 mg PO Q8H spasm #20 tabs 02/16/25 Allergies Allergy/AdvReac Type Severity Reaction Status Date / Time Sulfa (Sulfonamide Allergy Hives Verified 02/16/25 20:32 Antibiotics) [facility] Medical History (Updated 02/16/25 @ 21:09 by ASIA CESPEDES) Seasonal allergic rhinitis ?J30.2 - Other seasonal allergic rhinitis (ICD-10) Pulmonary nodule ?R91.1 - Solitary pulmonary nodule (ICD-10) Back pain ?M54.9 - Dorsalgia, unspecified (ICD-10) Breast cancer ?C50.919 - Malignant neoplasm of unspecified site of unspecified female breast (ICD-10) Migraine ?G43.909 - Migraine, unspecified, not intractable, without status migrainosus (ICD-10) High cholesterol ?E78.00 - Pure hypercholesterolemia, unspecified (ICD-10) Hypertension ?I10 - Essential (primary) hypertension (ICD-10) Prediabetes ?R73.03 - Prediabetes (ICD-10) Surgical History (Updated 01/02/23 @ 11:53 by Alaina Granados NP) History of section ?Z98.891 - History of uterine scar from previous surgery (ICD-10) History of tonsillectomy ?Z90.89 - Acquired absence of other organs (ICD-10) History of ankle surgery (06/04/19) ?Z98.890 - Other specified postprocedural states (ICD-10) History of breast biopsy ?Z98.890 - Other specified postprocedural states (ICD-10) History of breast surgery (02/22/21) ?Z98.890 - Other specified postprocedural states (ICD-10) H/O breast surgery ?Z98.890 - Other specified postprocedural states (ICD-10) Family History (Updated 01/02/23 @ 11:49 by Alaina Granados NP) Other Family history of breast cancer Family history of colon cancer Family history of diabetes mellitus Family history of hypertension Family history of myocardial infarction Social History Within the past year, how often did you have a drink containing alcohol: monthly or less Smoking status: Never smoker Non-prescribed substance use: denies use Highest level of school completed/degree received: high school graduate Little interest or pleasure in doing things: not at all Feeling down, depressed, or hopeless: not at all Exam Constitutional Vital Signs, click to edit/add: Last Vital Signs Temp 98.3 F 02/16/25 20:32 Pulse 92 H 02/16/25 20:32 Resp 20 02/16/25 20:32 BP 166/91 H 02/16/25 20:32 Pulse Ox 98 08/03/25 20:32 O2 Del Method Room Air 02/16/25 20:32 Documenting provider has reviewed patient's vital signs: yes Common normals: no apparent distress General appearance: cooperative and comfortable Orientation/consciousness: Yes awake Neck & C-Spine Common normals: no lymphadenopathy, supple and no meningeal signs Cervical spine: normal cervical lordosis, paracervical muscle spasm and trapezius muscle tenderness; no step off deformity Chest Common normals: inspection of chest normal and palpation of chest normal Extremity Common normals: normal to inspection, full ROM and normal capillary refill Course Vital Signs Vital signs: Vital Signs Temperature 98.3 F 02/16/25 20:32 Pulse Rate 92 H 02/16/25 20:32 Respiratory Rate 20 02/16/25 20:32 Blood Pressure 166/91 H 02/16/25 20:32 Pulse Oximetry 98 02/16/25 20:32 Oxygen Delivery Method Room Air 02/16/25 20:32 Temperature 98.3 F 02/16/25 20:32 Pulse Rate 92 H 02/16/25 20:32 Respiratory Rate 20 02/16/25 20:32 Blood Pressure 166/91 H 02/16/25 20:32 Pulse Oximetry 98 02/16/25 20:32 Oxygen Delivery Method Room Air 02/16/25 20:32 MDM - Back Pain/Injury MDM Narrative Medical decision making narrative: Patient presents to the ED with a complaint of left-sided neck and back pain. She states has been going on for 3 days now. She states it feels tight and spasm. Originally it started hurting on the upper part of her neck on the back that hurt with movement now it is shooting down around her scapula. She denies numbness or tingling in her extremities. She is able to get in a position of comfort but many of her neck movements are very painful. She denies any chest pain or shortness of breath. She denies lightheadedness or dizziness no headache. She does not have any other symptoms. She has tried some acetaminophen with no relief. Patient has tenderness in the last trapezius area. She also has tenderness around the vertebral border of the left scapula. She has a lot of spasm in the upper trapezius area as well. She has pain with rotation towards the right pain happens on the left sternocleidomastoid and upper trapezius area she does not have any vertebral tenderness. She does not have any numbness or tingling distally she has good sensation. 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 No shooting pain. Heart lung sounds are unremarkable. No shoulder pain. No other palpable back pain or spasm. Patient presents with left sided back and neck pain but consistent with upper trapezius strain. Differential diagnosis includes musculoskeletal spasm, pinched nerve, shoulder strain. given the clinical picture no indication for imaging at this time Patient was given a shot of Toradol. She was given Robaxin to take home with her as she did not have a ride. She will follow-up with her PCP tomorrow. Plan of care includes pain control, antispasmodic, supportive care, use of moist heat at home and gentle stretching. Patient will to be reassessed by PCP and will follow-up as discussed. Differential Diagnosis Differential diagnosis: Likely thoracic back pain Medical Records Attestation: I reviewed the patient's medical records. Discharge Plan Discharge Chief Complaint: Back Pain/Injury Clinical Impression: Strain of left trapezius muscle Qualifiers: Encounter type: initial encounter Qualified Code(s): S46.812A - Strain of other muscles, fascia and tendons at shoulder and upper arm level, left arm, initial encounter Patient Disposition: Home, Self-Care Time of Disposition Decision: 21:09 Condition: Good Prescriptions / Home Meds: New methocarbamol 500 mg tablet 500 mg PO Q8H Qty: 20 0RF diclofenac potassium 50 mg tablet 50 mg PO Q12H PRN (Reason: pain) Qty: 20 0RF No Action atorvastatin 40 mg tablet 40 mg PO DAILY amlodipine 5 mg tablet 5 mg PO DAILY letrozole 2.5 mg tablet 2.5 mg PO Q24H benazepril 40 mg tablet 40 mg PO DAILY hydrochlorothiazide 25 mg tablet 25 mg PO DAILY Print Language: Ghanaian Instructions: Muscle Strain (DC) Referrals: Singh Crowley DO [Primary Care Provider, Internal Medicine] - 1 week Discharge Date/Time: 02/16/25 21:27
[2025-02-16] MEDS: KETOROLAC TROMETHAMINE 30 MG/ML VIAL IM (21:04)
[2025-02-16] MEDS: METHOCARBAMOL 500 MG TABLET PO (21:04)
== END 2025-02-16 21:27 | disposition home or self-care (01) ==
PROVIDERS: Emergency Provider Emergency Medicine; PCP Internal Medicine
DX: S46.812A Strain of other muscles, fascia and tendons at shoulder and upper arm level, left arm, initial encounter (principal); X58.XXXA Exposure to other specified factors, initial encounter
CPT/HCPCS: 96372; 99284; J1885

== ENCOUNTER 2025-03-24 09:15 | Outpatient (OUT) | payer MEDICARE, SELFPAY ==
--- OUTSIDE RECORDS SUMMARY | 2008-09-02 04:00 | XMS_ITS | Continuity of Care Document ---
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 [address], [place], [id number], [place]. tel:[phone] [facility], [address] [place] [address], [id number], tel:[phone] [facility] No Information Williams Butler. [address] [place] [address], [id number], [place]. tel:[phone] [facility], [address] [place] [address], [id number], [place] tel:[phone] [facility] No Information Williams Butler. [address] [place] [address], [id number], [place]. tel:[phone] Family History Family Member Type Diagnosis Age At Onset No Information Payers Payer name Insurance type Covered constitution party ID Authoriza tion(s) No Information Social History Type Description Quantity Date Captured Comments Sex Female Smoking Status No Information Chief Complaint And Reason For Visit No Information Reason For Referral Reason For Referral No Information History Of Present Illness Encounter Date Complaint History Of Prese nt Illness No Information Functional Status Date Functional Assessmen t No Information Instructions Date Instruction Additional Infor mation No Information Assessments Type Assessment Date No Information Patient Care Teams Name Effective Dates (start - stop) Status Members No Information
--- OUTSIDE RECORDS SUMMARY | 2025-03-24 09:18 | XMS_ITS | Encounter Summary ---
Demographics Address [address] [place] [address] Home Phone Work Phone Email Address Preferred Language Unknown Marital Status Unmarried Worship Affiliation Unknown Race White Ethnic Group Unknown Author Organization [facility] Address [address] [place] [address] Care Team Providers Care Therapy Teacher Name Role Phone Unavailable Primary Care Provider Unavailabl e Encounter Details Date Type Department Care Team (Late st Contact Info) Description 12/19/2024 External Result Encounter [facility] External Department Unsolicited Chiara Hoffmann MD [address] [place] [address] Social History Tobacco Use Types Packs/Day Years Used Date Smoking Tobacco: Never Assessed Comments Unknown Sex and Gender Information Value Date Recorded Sex Assigned at Not on file Legal Sex Female 7:17 PM EDT Gender Identity Not on file Sexual Orientation Not on file documented as of this encounter Plan of Treatment Not on file documented as of this encounter Procedures Procedure Name Priority Date/Time Associated Diagnosis Comments BI MAMMOGRAM SCREENING TOMOSYNTHESIS BILATERAL 12/19/2024 11:02 AM EDT documented in this encounter Results * Bilateral screening mammogram with tomosynthesis (12/19/2024 11:02 AM EDT) Anatomical Region Laterality Modality Breast Bilateral Mammography 12/19/2024 11:0 2 AM EDT Impressions 12/19/2024 11:08 AM EDT NO MAMMOGRAPHIC EVIDENCE OF MALIGNANCY. ROUTINE FOLLOW-UP [...] Condon M.D. 12/19/2024 11:06 AM Dictation Location: [facility] Dictated By: Truman Condon II, MD 12/19/24 1102 Signed By: <Electronically signed by Truman Condon II, MD in OV> 12/19/24 1106 Narrative 12/19/2024 11:08 AM EDT [facility] [address] [place] [address] Mammography Report Signed Patient: Renuka Baxter MR#: [id number] : 1960 Acct:[id number] Age/Sex: 64 / F Adm Date: 12/26/24 Loc: Room: Type: [facility] Attending Dr: Chiara Hoffmann MD Ordering Provider: Chiara Hoffmann MD Date of Service: 12/19/24 Procedure(s): MM screening mammo BI w/CAD Accession Number(s): ([id number]) MM/MM screening mammo BI w/CAD: C50.211 - [...] interval change. MM/MM screening mammo BI w/CAD Procedure Note Truman Condon MD - 01/23/2025 [facility] [place] [id number] Mammography Report Signed Patient: Renuka Baxter AMR#: [id number] : 9Acct:[id number] Age/Sex: 64 / FAdm Date: 12/26/24 Loc: XT Room:Type: [facility] Attending Dr: Chiara Hoffmann MD Ordering Provider: Chiara Hoffmann MD Date of Service: 12/19/24 Procedure(s): MM screening mammo BI w/CAD Accession Number(s): ([id number]) MM/MM screening mammo BI w/CAD: C50.211- Malignant neoplasm of upper-inner quadrant of r... Copies to: MD Singh Greene DO James E Fanning, MD CLINICAL DATA: Screening for malignancy. BILATERAL SCREENING MAMMOGRAMS - FULL FIELD DIGITAL WITH TOMOSYNTHESIS ANDCAD Tomosynthesis craniocaudal and mediolateral oblique views of both breastswere obtained using low- dose digital technique. Comparison is made to prior studies from 12/18/2023nd 11/28/2022. This examination was reviewed with the aid of CAD. There are scattered fibroglandular densities. Surgical clips are noted inthe right axilla. Benign- appearing calcifications are present. There is postsurgical scarring andarchitectural distortion in the right chest wall similar to the prior exam. Benign-appearing lymphnodes are noted along the left chest wall. There are no dominant masses, typically malignantcalcifications or architectural distortion. There has been no significant interval change. MM/MM screening mammo BI w/CAD IMPRESSION: NO MAMMOGRAPHIC EVIDENCE OF MALIGNANCY. ROUTINE FOLLOW-UP IS RECOMMENDED IN ONE YEAR. RESULT CODE: 2 Benign Findings(s) DENSITY CODE: 2 (approximately 25-50% glandular) There are scattered areasof fibroglandular density. FOLLOW UP: 1YR The false-negative rate of mammography is approximately 10-percent. Management of a palpable abnormality must be based on clinical grounds. Patient was entered into a reminder system with a target due date for thenext mammogram. Impression dictated by: Truman Condon M.D. 12/19/2024 11:06 AM Dictation Location: [facility] Dictated By: Truman Condon II, MD 12/19/24 1102 Signed By: <Electronically signed by Truman Condon II, MD inOV> 12/19/24 1106 Chiara Hoffmann MD IMG BI PROCEDURES Edited Result - Final documented in this encounter Visit Diagnoses Not on filedocumented in this encounter
--- OUTSIDE RECORDS SUMMARY | 2025-03-24 09:18 | XMS_ITS | Clinical Summary ---
Demographics Address [address] [place] [address] Home Phone Preferred Language Unknown Marital Status Unknown Rastafarian Affiliation Unknown Race Other Race Ethnic Group Unknown Author Organization [facility] Address [address] [place] [address] Phone Care Team Providers Care Live Hanger Name Role Phone Unavailable Primary Care Provider Unavailabl e Social History Tobacco Use Types Packs/Day Years Used Date Smoking Tobacco: Never Assessed Comments Unknown Sex and Gender Information Value Date Recorded Sex Assigned at Not on file Legal Sex Female 1:06 AM EST Gender Identity Not on file Sexual Orientation Not on file Plan of Treatment Not on file
--- OUTSIDE RECORDS SUMMARY | 2025-03-24 09:18 | XMS_ITS | Encounter Summary ---
Demographics Address [address] [place] [address] Home Phone Work Phone Email Address Preferred Language Unknown Marital Status Unmarried Church Affiliation Unknown Race White Ethnic Group Unknown Author Organization [facility] Address [address] [place] [address] Care Team Providers Care Power Plant Manager Name Role Phone Unavailable Primary Care Provider Unavailabl e Encounter Details Date Type Department Care Team (Late st Contact Info) Description 09/21/2023 Abstract [facility] [address] [place] [id number] Chiara Hoffmann MD [address] [place] [address] Social History Tobacco Use Types Packs/Day Years Used Date Smoking Tobacco: Never Assessed Comments Unknown Sex and Gender Information Value Date Recorded Sex Assigned at Not on file Legal Sex Female 7:17 PM EDT Gender Identity Not on file Sexual Orientation Not on file documented as of this encounter Plan of Treatment Not on file documented as of this encounter Visit Diagnoses Not on filedocumented in this encounter
--- OUTSIDE RECORDS SUMMARY | 2025-03-24 09:18 | XMS_ITS | Clinical Summary ---
Author Organization [facility] Address [address] [place] [address] Care Team Providers Care Barrel Marker Name Role Phone Unavailable Primary Care Provider Unavailabl e Social History Tobacco Use Types Packs/Day Years Used Date Smoking Tobacco: Never Assessed Comments Unknown Sex and Gender Information Value Date Recorded Sex Assigned at Not on file Legal Sex Female 7:17 PM EDT Gender Identity Not on file Sexual Orientation Not on file Plan of Treatment Not on file Insurance * Guarantor: Renuka Baxter Account Type Relation to Patient Date of Phone Billing Address Personal/Family Self 1960 [address] [place] [address] [employer]
--- OUTSIDE RECORDS SUMMARY | 2025-03-24 09:30 | XMS_ITS | CCD ---
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 Role Phone SINGH FOWLER Primary Care Physician [phone] MD Thiago Durbin Attending Provider DO Singh Fowler Primary Care Provider MD Daniel Lopes Referring Provider DO Singh Fowler Primary Care Provider MD Daniel Lopes Referring Provider Unavailable MD Chiara Hoffmann Attending Provider [phone] Vee Wadsworth Unavailable DO Singh Fowler Primary Care Provider MD Naga Acuna Attending Provider MD Daniel Lopes Referring Provider Unavailable MD Chiara Hoffmann Attending Provider [phone] DO Singh Fowler Primary Care Provider MD Daniel Lopes Referring Provider Unavailable MD Chiara Hoffmann Attending Provider Singh Fowler Unavailable Sydney Mayes Unavailable DR CHIARA HOFFMANN Attending Unavailable ANNE MARIE, DR CHIARA Monaco Admitting Unavailable YUDI, DR WINTERS Primary Care Unavailable MATEUSZ, DR PABLO Quintero Consulting Unavailable CANDE ., HARSHAD Attending Unavailable CANDE ., HARSHAD Admitting Unavailable YUDI, DR WINTERS Primary Care Unavailable CANDE ., HARSHAD Consulting Unavailable CANDE ., HARSHAD Consulting Unavailable CANDE ., HARSHAD Attending Unavailable CANDE ., HARSHAD Admitting Unavailable YUDI, DR WINTERS Primary Care Unavailable KLYMJOSH Consulting Unavailable YUDI, DR WINTERS Primary Care Unavailable YUDI, DR WINTERS Attending Unavailable REQUEST, DR JUAN DIEGO LISTED Consulting Unavaila ble BALL, DR WINTERS Admitting Unavailable BALL, DR WINTERS Consulting Unavailable BALL, DR WINTERS Attending Unavailable BALL, DR WINTERS Admitting Unavailable BALL, DR WINTERS Primary Care Unavailable ZIEBER, DR PABLO Quintero Consulting Unavailable BALL, DR WINTERS Primary Care Unavailable BALL, DR WINTERS Consulting Unavailable BALL, DR WINTERS Attending Unavailable BALL, DR WINTERS Admitting Unavailable ZIEBER, DR PABLO Quintero Consulting Unavailable ANNE MARIE, DR CHIARA Monaco Attending Unavailable ANNE MARIE, DR CHIARA Monaco Admitting Unavailable BALL, DR WINTERS Primary Care Unavailable ANNE MARIE, DR CHIARA Monaco Consulting Unavailable BALL, DR WINTERS Primary Care Unavailable BALL, DR WINTERS Consulting Unavailable BALL, DR WINTERS Attending Unavailable BALL, DR WINTERS Admitting Unavailable WEST, DR JULIAN Mendez Consulting Unavailable ZIEBER, DR PABLO Quintero Consulting Unavailable ANNE MARIE, DR CHIARA Monaco Consulting Unavailable BALL, DR WINTERS Primary Care Unavailable MISC, DR CODY Consulting Unavailable MISC, DR CODY Attending Unavailable MISC, DR CODY Admitting Unavailable ZIEBER, DR PABLO Quintero Consulting Unavailable BALL, DR WINTERS Primary Care Unavailable HOY ., DR GARZA Consulting Unavailable HOY ., DR GARZA Attending Unavailable HOY ., DR GARZA Admitting Unavailable Ball, DO Winters Primary Care Provider [phone] MD Daniel Lopes Referring Provider Unavailable MD Chiara Hoffmann Attending Provider Salazar MUNIZ Attending Unavailable NILSalazar Escobedo R Attending Unavailable DO Singh Fowler Primary Care Provider [phone] MD Daniel Lopes Referring Provider Unavailable MD Chiara Hoffmann Attending Provider Singh Fowler DO Primary Care Provider Singh Fowler DO Attending Provider Mahesh Ferrari APRN Attending Provider Daniel Lopes MD Referring Provider Unavailable Chiara Hoffmann MD Attending Provider Luc Bray DO Attending Provider Singh Fowler Primary Care Unavailable Luc Bray A Admitting Unavailable Luc Bray A Attending Unavailable Singh Fowler Primary Care Unavailable Jesus Brayin A Admitting Unavailable Jesus Brayin A Attending Unavailable Chiara Hoffmann Attending Unavailable Singh Fowler Primary Care Unavailable Daniel Lopes Referring Unavailable Chiara Hofmfann Admitting Unavailable Singh Fowler DO Primary Care Provider [phone] Angie Metcalf CMA Attending Provider UnavailSingh St DO Attending Provider Allergies Allergy Classification Reported Allergen(s) Allergy Type Date of Onset Reaction(s) Facility (2 sources) Sulfonamides (Antibiotic); Translations: [sulfa drugs] Drug allergy Eruption of skin (disorder) [facility] (7 sources) Sulfonamides (Antibiotic); Translations: [Sulfa (Sulfonamide Antibiotics)] Allergy to substance 10-21-19 22 Itching [facility] (1 source) sulfaSALAzine Drug Allergy Unknown [facility] Other (18 sources) Substance with sulfonamide structure and antibacterial mechanism of action (substance) Drug allergy Unknown [facility]uddle Other (1 source) Sulfonamides (Antibiotic) Drug allergy (disorder) [facility] Rep[facility] (1 source) Wheat preparation Drug Allergy 06-17-20 [facility] Medications Current Medications Medication Drug Class(es) Dates Sig (Normalized) Sig (Original) amLODIPine 5 mg oral tablet (20 sources) Dihydropyridine Calcium Channel Chalino Start: 03-24-2025 take 1 tablet by mouth once daily Amlodipine 5 mg tablet Active 5 MG PO Daily March 24, 2025 8:51am Complies with drug therapy Start: 08-01-2024 End: 03-24-2025 take 1 tablet by mouth once daily Amlodipine 5 mg tablet Discontinued 0 .ROUTE .COMPLEX August 01, 2024 8:06am March 24, 2025 8:53am TAKE 1 TABLET BY MOUTH DAILY Start: 01-11-2021 End: 08-01-2024 take 1 tablet [...] 12:00am October 03, 2023 3:56pm benazepril hydrochloride 40 mg oral tablet (20 sources) Angiotensin Converting Enzyme Inhibitor Start: 03-24-2025 take 1 tablet by mouth once daily Benazepril 40 mg tablet Active 40 MG PO Daily March 24, 2025 12:00am Complies with drug therapy Start: 08-01-2024 take 1 tablet by prisca th once daily Benazepril 20 mg tablet Active 0 .ROUTE .COMPLEX August [...] tablet Orally Once a day Active Hyaluronic Ps-Biplbxgck-Bktv (Radiaplexrx) Gel (10 sources) Start: 05-18-2021 Hyaluronic Na- Allantoin-Aloe (Radiaplexrx) Gel Active 1 APPLIC TOPICAL Three times daily May 18, 2021 9:12am Start: 05-18-2021 End: 12-28-2022 Hyaluronic Xk-Feftaudnb-Kqmt (Radiaplexrx) Gel Discontinued 1 APPLIC TOPICAL Three times daily May 17, 2021 11:00pm December 28, 2022 8:29am Start: 05-18-2021 End: 12-28-2022 Hyaluronic Vz-Wvnejaruu-Tjsh (Radiaplexrx) Gel Discontinued 1 APPLIC TOPICAL Three [...] 25 mg tablet Active 0 .ROUTE .COMPLEX August 01, 2024 8:06am TAKE 1 TABLET BY MOUTH DAILY Complies with drug therapy Start: 01-11-2021 End: 08-01-2024 take 1 tablet by mouth once daily Hydrochlorothiazide 25 mg tablet Discontinued 25 MG PO Daily October 05, 2023 3:05pm August 01, 2024 8:06am Multivitamin (Multiple Vitamin) Tablet (6 sources) Start: 12-28-2022 take 1 tablet by [...] Sig (Original) anastrozole 1 mg oral tablet (20 sources) Aromatase Inhibitor Start: 07-12-2021 End: 07-20-2021 [...] D iscontinued 250 MG PO As Directed 12 19October 06, 2023 12:00am November 03, 2023 9:54am [...] Biotin Active ibuprofen 800 mg oral tablet (9 sources) Nonsteroidal Anti-inflammatory Drug Start: 01-13-2022 End: [...] 2023 10:05am linagliptin 5 mg oral tablet (4 sources) Dipeptidyl Peptidase 4 Inhibitor Start: 11-13-2023 End: 11-14-2023 take 1 tablet by mouth once daily Linagliptin (Tradjenta) 5 mg tablet Discontinued 5 MG PO Daily November 13, 2023 12:00am November 14, 2023 8:37am 24 hr metFORMIN hydrochloride 500 mg extended release oral tablet (16 sources) Biguanide Start: 03-11-2021 End: 12-28-2022 take [...] Active mometasone furoate 1 mg/ml topical cream (10 sources) Corticosteroid Start: 05-18-2021 End: 12-28-2022 Mometasone 0.1 % Cream Discontinued 1 APPLIC TOPICAL Twice daily 60 May 18, 2021 12:00am December 28, 2022 9:29am Semaglutide (4 sources) Start: 11-09-2023 End: 11-13-2023 Semaglutide (Ozempic) 0.25 mg or 0.5 mg (2 mg/3 mL) pen injector Discontinued 0.25 MG SUBCUT every week 10 11November 09, 2023 12:00am November 13, 2023 1:26pm for 4 weeks SITagliptin 50 mg oral tablet (4 sources) Dipeptidyl Peptidase 4 Inhibitor Start: 11-14-2023 End: 01-04-2024 take 1 tablet by mouth once daily Sitagliptin Phosphate (Januvia) 50 mg tablet Discontinued 50 MG PO Daily 90 90 November 14, 2023 12:00am January 04, [...] Date: 01/11/21 Status: Ordered Vitamin E Not-Ta madison/PRN Vitamin E Not-Ta madison Vitamin E Active zinc oxide 0.1 mg/mg topical ointment (10 sources) Start: 05-31-2021 End: 12-28-2022 Zinc Oxide [...] with hyperglycemia] Chronic Diabetes mellitus without complication (3 sources) Type 2 diabetes mellitus without complication; [...] [Contracture, left ankle] Chronic Other acquired deformities (4 sources) Contracture of joint of left ankle; Translations: [Contracture, left ankle] 10-06-2023 Chronic Other aftercare (4 sources) Drug therapy finding; Translations: [Encounter for therapeutic drug level monitoring] 01-13-2022 Episodic Other aftercare (4 sources) Encounter for therapeutic drug level monitoring; Translations: [Encounter for therapeutic drug monitoring] 04-13-2022 Episodic Other aftercare (10 sources) Long-term current use of drug therapy; Translations: [Encounter for therapeutic drug level monitoring] 01-04-2024 Episodic Other connective tissue disease (1 source) Plantar fasciitis 01-11-2021 Episodic Other connective tissue disease (17 sources) Plantar fascial fibromatosis; Translations: [Plantar fascial fibromatosis] Episodic Other connective tissue disease (1 source) Plantar fascial fibromatosis; Translations: [Plantar fasciitis, left] Episodic Other diseases of veins and lymphatics (17 sources) Peripheral venous insufficiency; Translations: [Venous insufficiency [...] Onset: 12-09-2021 Episodic Other lower respiratory disease (11 sources) Nodule of lung; Translations: [Solitary pulmonary nodule] 12-28-2022 Episodic Comment on above: CT: 6-10mm RUL, RML T: stable, decreasing GGO T: calcified pulmonary nodules, largest 10mm, 3CT: calcified and noncalcified nodules, stable, 11/2023 Other non-traumatic joint disorders (1 source) Disorder of ankle joint 01-11-2021 Episodic Other non-traumatic joint disorders (12 sources) Pain in right knee; Translations: [Right [...] 01-03-2022 Episodic Other aftercare (1 source) 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; Translations: [OTH SHAREPOINT APPLICATION ARCHITECT CURRENT DRUG THERAPY] Onset: 02-28-2022 Episodic Other aftercare (1 source) nursing home (current) use of oral hypoglycemic drugs; Translations: [JAIL USE ORAL HYPOGLYCEMIC DX] Onset: 01-03-2022 Episodic [...] By: Lionel Ch on 01-08-2025 Study report [facility] [place] [facility] [place] [address] XRay Report Signed Patient: Renuka Caceres MR#: [id number] : 1960 Acct:[id number] Age/Sex: 64 / F ADM Date: 5 Loc: [facility] Room: Type: [facility] Attending Dr: Luc Bray DO Copies [...] SEEN. Impression dictated by: Chris Ch Jr., DLyubovOLyubov 01/08/2025 9:45 AM Dictation Location: [place] [address] Transcribed By: [facility] 01/08/2545 Dictated By: Chris Ch Jr, DO 01/08/25 0944 Signed By: 01/08/25 0945 [facility] XR knee RT 4V*on 01-08-2025 XR knee RT 4V* [facility] [place] [facility] [place] [address] XRay Report Signed Patient: Renuka Caceres MR#: [id number] : 1960 Acct:[id number] Age/Sex: 64 / F ADM Date: 01/08/25 Loc: [facility] Room: Type: [facility] CLI Attending Dr: Luc Bray DO Copies [...] SEEN. Impression dictated by: Chris Ch Jr., D.OLyubov 01/08/2025 9:45 AM Dictation Location: [facility]-- Transcribed By: JACKIE 01/08/2545 Dictated By: Chris hC Jr, DO 01/08/25 0944 Signed By: 01/08/2545 Normal [facility] MM screening mammo BI w/CADo n 12-19-2024 MM screening mammo BI w/CAD [facility] [address] [place] [address] Mammography Report Signed Patient: Renuka Caceres MR#: [id number] : 1960 Acct:[id number] Age/Sex: 64 / F Adm Date: 12/26/24 Loc: Room: Type: [facility] Attending Dr: Chiara Hoffmann MD Ordering Provider: Chiara Hoffmann MD Date of Service: 12/19/24 Procedure(s): MM screening mammo BI w/CAD Accession Number(s): ([id number]) MM/MM screening mammo BI w/CAD: C50.211 - [...] Condon M.D. 12/19/2024 11:06 AM Dictation Location: [facility] Dictated By: Truman Condon II, MD 12/19/24 1102 Signed By: 12/19/24 1106 Normal [facility] Outside Colonoscopyon 2022 Outside Colonoscopy [id number]#1.00C D:127 Normal [facility] Reminderson 01-12-2023 Reminders - From: Palmira Mei LPN To: GSN - Clinical; Sent: 01/12/2023 14:47:17 EDT Show up: 12/11/2032 07:00:00 EDT Subject: colonoscopy recall Due Date/Time: 01/11/2033 07:00:00 EDT Reminder/Recall Patient due for screening colonoscopy 01/11/2033. Normal [facility] Consultation Noteon 12-29-19 Consultation Note [id number]#1.00C D:127 Normal [facility] Pre-Certification Formon Pre-Certification Form [id number]#1.00C D:127 Normal [facility] Consent for Procedure/Surger yon 12-06-2022 Consent for Procedure/Surgery [id number]#1.00C D:127 Normal [facility] Facesheeton 12-05-2022 Facesheet [id number]#1.00C D:127 Normal [facility] Ambulatory Visit Summaryon 0 12-02-2022 Ambulatory Visit [...] fasciitis Syndesmotic disruption of left ankle Normal [facility] CT CHEST WO CONon 11-28-2022 CT CHEST [...] nodules. 2. No lymphadenopathy. 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 LOCATION: [facility] BREAST COMPOSITION: Heterogeneously dense,which may obscure small [...] PALPABLE LUMP SHOULD BE BIOPSIED. Dictated by: Pablo Morris M.D. on 11/28/2022 at 09:36 Approved by: Pablo Morris M.D. on 11/28/2022 at 09:41 Normal [facility] Physician Referralon 023 Physician Referral [id number]#1.00C D:127 Normal [facility] Physician Referralon 023 Physician Referral [id number]#1.00C D:127 Normal [facility] CBC AUTO DIFFon 09-27-2022 BASO # 0.0 103/ul Normal 0.0-0.1 [facility] Comment on above: Performed By: #### C BC ####[facility] [address] [place] [id number] Peace Basophils/100 WBC (Bld) 0.2 % Normal 0.2-2.0 [facility] Comment on above: Performed By: #### C BC ####[facility] [address] [place] [id number] Peace EO # 0.2 103/ul Normal 0.0-0.7 [facility] Comment on above: Performed By: #### C BC ####[facility] [address] [place] [address]Dr. Marysol Peace Eosinophils/100 WBC (Bld) 1.3 % Normal 0.9-7.0 [facility] Comment on above: Performed By: #### C BC ####[facility] [address] [place], [place] [address]Dr. Marysol Peace Erythrocyte distribution width (RBC) [Ratio] 13.0 % Normal 11.0-15.0 [facility] Comment on above: Performed By: #### C BC ####[facility] [address] [place], [place] [address]DrLyubov Marysol Peace Hematocrit (Bld) [Volume fraction] 46.6 % Normal 36.0-48.0 [facility] Comment on above: Performed By: #### C BC ####[facility] [address] [place], [place] [address]Dr. Marysol Peace Hemoglobin (Bld) [Mass/Vol] 15.7 g/dL Normal 12.0-16.0 [facility] Comment on above: Performed By: #### C BC ####[facility] [address] [place], [place] [address]Dr. Marysol Peace IG # 0.04 10e3/ul Critically high 0.00-0.03 [facility] Comment on above: Performed By: #### C BC ####[facility] [address] [place], [place] [address]DrLyubov Marysol Peace IG % 0.3 % Normal 0.0-0.5 [facility] Comment on above: Performed By: #### C BC ####[facility] [address] [place], [place] [address]DrLyubov Marysol Peace LYMPH # 0.5 103/ul Critically low 1.2-3.8 The [facility] Comment on above: Performed By: #### C BC ####[facility] [address] [place], [place] [address]Dr. Marysol Peace Lymphocytes/100 WBC (Bld) 3.8 % Critically low 20.5-60.0 [facility] Comment on above: Performed By: #### C BC ####[facility] [address] [place] [address]Dr. Marysol Peace MANUAL DIFF REQ NO Normal [facility] Comment on above: Performed By: #### C BC ####[facility] [address] [place] [address]Dr. Marysol Peace MCH (RBC) [Entitic mass] 29.2 pg Normal 26.7-34.0 [facility] Comment on above: Performed By: #### C BC ####[facility] [address] [place], [place] [address]Dr. Marysol Peace MCHC (RBC) [Mass/Vol] 33.7 g/dL Normal 29.9-35.2 [facility] Comment on above: Performed By: #### C BC ####[facility] [address] [place], [place] [address]Dr. Marysol Peace MCV (RBC) [Entitic vol] 86.6 fL Normal 81.0-99.0 [facility] Comment on above: Performed By: #### C BC ####[facility] [address] [place], [place] [address]Dr. Marysol Peace MONO # 0.3 103/ul Normal 0.3-0.8 [facility] Comment on above: Performed By: #### C BC ####[facility] [address] [place], [place] [address]Dr. Marysol Peace Monocytes/100 WBC (Bld) 2.8 % Normal 1.7-12.0 [facility] Comment on above: Performed By: #### C BC ####[facility] [address] [place], [place] [address]DrLyubov Peace NEUT # 10.7 103/ul Critically high 1.4-6.5 [facility] Comment on above: Performed By: #### C BC ####[facility] [address] [place], [place] [address]Dr. Marysol Peace Neutrophils/100 WBC (Bld) 91.6 % Critically high 43.0-75.0 [facility] Comment on above: Performed By: #### C BC ####[facility] [address] [place] [address]Dr. Marysol Peace Platelet mean volume (Bld) [Entitic vol] 11.0 fL Normal 9.5-13.5 [facility] Comment on above: Performed By: #### C BC ####[facility] [address] [place] [address]Dr. Marysol Peace PLT 192 103/ul Normal 150-450 [facility] Comment on above: Performed By: #### C BC ####[facility] [address] [place] [address]Dr. Marysol Peace RBC 5.38 106/ul Normal 4.20-5.40 [facility] Comment on above: Performed By: #### C BC ####[facility] [address] [place] [address]Dr. Marysol Peace WBC 11.7 103/ul Critically high 4.0-11.0 [facility] Comment on above: Performed By: #### C BC ####[facility] [address] [place] [address]Dr. Marysol Peace GLYCOHEMOGLOBIN A1Con 2022 ADA RECOMMENDATION SEE BELOW Normal [facility] Comment on above: Result Comment: ADA RECOMMENDED LIMIT 4.0 - 6.0 ADA THERAPEUTIC TARGET < 7.0 ACTION SUGGESTED > 7.0 Performed By: #### A 1C ####[facility] [address] [place] [address]Dr. Marysol Peace Glucose [Mass/Vol] 154 mg/dL Normal [facility] Comment on above: Performed By: #### A 1C ####[facility] [address] [place] [address]Dr. Marysol Peace HbA1c (Bld) [Mass fraction] 7.0 % Critically high 4.5-6.2 [facility] Comment on above: Performed By: #### A 1C ####[facility] [address] [place] [id number]. Marysol Peace LIPID PROFILEon 09-27-2022 CHOL-HDL RATIO NORM SEE BELOW Normal [facility] Comment on above: Result Comment: 3.3 - 4.4 LOW RISK 4.4 - 7.1 AVERAGE RISK 7.1 - 11.0 MODERATE RISK >11.0 HIGH RISK Performed By: #### L IPID, CMP, TSH ####[facility] [address] [place] [id number]. Marysol Peace Cholesterol [Mass/Vol] 136 mg/dL Normal <=200 [facility] Comment on above: Performed By: #### L IPID, CMP, TSH ####[facility] [address] [place] [address]Dr. Marysol Peace Cholesterol in HDL [Mass/Vol] 36 mg/dL Critically low 40-60 [facility] Comment on above: Performed By: #### L IPID CMP, TSH ####[facility] [address] [place] [address]Dr. Piedadbre Peace Cholesterol in LDL [Mass/Vol] 66.2 mg/dL Normal [facility] Comment on above: Performed By: #### L IPID, CMP, TSH ####[facility] [address] [place] [address]Dr. Marysol Peace Cholesterol.total/C holesterol in HDL [Mass ratio] 3.8 {ratio} Normal [facility] Comment on above: Performed By: #### L IPID, CMP, TSH ####[facility] [address] [place] [id number]. Marysol Peace HDL NORMAL > or = 60 mg/dl - LO W CARDIOVASCULAR RISK <40 mg/dl - HIGH CARDIOVASCULAR RISK Normal [facility] Comment on above: Performed By: #### L IPID, CMP, TSH ####[facility] [address] [place] [address]Dr. Marysol Peace LDL CALC NORMAL SEE BELOW Normal [facility] Comment on above: Result Comment: <100 mg/dl OPTIMAL 100 - 129 mg/dl NEAR OR ABOVE OPTIMAL 130 - 159 mg/dl BORDERLINE HIGH 160 - 189 mg/dl HIGH >190 mg/dl VERY HIGH Performed By: #### L IPID, CMP, TSH ####[facility] [address] [place] [address]Dr. Marysol Peace Triglyceride [Mass/Vol] 169 mg/dL Critically high <=150 [facility] Comment on above: Performed By: #### L IPID, CMP, TSH ####[facility] [address]kp[address]bgj[address] [place] [address]Dr. Marysol Peace VLDL CALC 33.8 mg/dL Normal [facility] Comment on above: Performed By: #### L IPID, CMP, TSH ####[facility] [address] [place] [address]Dr. Marysol Peace PROF 14(COMP METB)on 023 Albumin [Mass/Vol] 3.9 g/dL Normal 3.4-5.0 [facility] Comment on above: Performed By: #### L IPID, CMP, TSH ####[facility] [address]wl[address] [place] [address]Dr. Marysol Peace Albumin/Globulin [Mass ratio] 1.1 {ratio} Normal [facility] Comment on above: Performed By: #### L IPID, CMP, TSH ####[facility] [address] [place] [address]Dr. Marysol Peace ALP [Catalytic activity/Vol] 92 U/L Normal 46-116 [facility] Comment on above: Performed By: #### L IPID, CMP, TSH ####[facility] [address]jcpmigm[address]206 [place] [address]Dr. Marysol Peace ALT [Catalytic activity/Vol] 29 U/L Normal 14-59 [facility] Comment on above: Performed By: #### L IPID, CMP, TSH ####[facility] [address]dfgz[address] [place] [address]Dr. Marysol Peace Anion gap [Moles/Vol] 12.2 mmol/L Normal [facility] Comment on above: Performed By: #### L IPID, CMP, TSH ####[facility] [address]zksv[address] [place] [address]Dr. Marysol Peace AST [Catalytic activity/Vol] 20 U/L Normal 15-37 [facility] Comment on above: Performed By: #### L IPID, CMP, TSH ####[facility] [facility] [address] [address]Dr. Marysol Peace Bilirubin [Mass/Vol] 0.5 mg/dL Normal 0.2-1.0 [facility] Comment on above: Performed By: #### L IPID, CMP, TSH ####[facility] [address] [address]Dr. Marysol Peace Calcium [Mass/Vol] 8.9 mg/dL Normal 8.5-10.1 [facility] Comment on above: Performed By: #### L IPID, CMP, TSH ####[facility] [address] [place], [place] [address]Dr. Marysol Peace Chloride [Moles/Vol] 102 mmol/L Normal 98-107 [facility] Comment on above: Performed By: #### L IPID, CMP, TSH ####[facility] [address] [address]Dr. Marysol Peace CO2 [Moles/Vol] 25.6 mmol/L Normal 21.0-32.0 The [facility] Comment on above: Performed By: #### L IPID, CMP, TSH ####[facility] [address] [address]Dr. Maryosl Peace Creatinine [Mass/Vol] 0.61 mg/dL Normal 0.55-1.02 [facility] Comment on above: Performed By: #### L IPID, CMP, TSH ####[facility] [address] [address]Dr. Marysol Peace EGFR-AF LIBYAN >60 Normal >=60 The [facility] Comment on above: Performed By: #### L IPID, CMP, TSH ####[facility] [address] [address]Dr. Marysol Peace EGFR-NON AF LIBYAN >60 Normal >=60 [facility] Comment on above: Performed By: #### L IPID, CMP, TSH ####[facility] [address] [address]Dr. Marysol Peace Globulin (S) [Mass/Vol] 3.4 g/dL Normal [facility] Comment on above: Performed By: #### L IPID, CMP, TSH ####[facility] [address] [address]Dr. Marysol Peace Glucose [Mass/Vol] 149 mg/dL Critically high 74-106 [facility] Comment on above: Performed By: #### L IPID, CMP, TSH ####[facility] [address] [address]Dr. Marysol Peace Potassium [Moles/Vol] 3.8 mmol/L Normal 3.5-5.1 [facility] Comment on above: Performed By: #### L IPID, CMP, TSH ####[facility] [address] [address]Dr. Marysol Peace Protein [Mass/Vol] 7.3 g/dL Normal 6.4-8.2 [facility] Comment on above: Performed By: #### L IPID, CMP, TSH ####[facility] [address] [place], [place] [address]Dr. Marysol Peace Sodium [Moles/Vol] 136 mmol/L Normal 136-145 [facility] Comment on above: Performed By: #### L IPID, CMP, TSH ####[facility] [address] [address]Dr. Marysol Peace Urea nitrogen [Mass/Vol] 26.0 mg/dL Critically high 7.0-18.0 [facility] Comment on above: Performed By: #### L IPID, CMP, TSH ####[facility] [address] [address]Dr. Marysol Peace Urea nitrogen/Creatinine [Mass ratio] 42.6 mg/mg Normal [facility] Comment on above: Performed By: #### L IPID, CMP, TSH ####[facility] [address] [id number]. Marysol Peace TSHon 09-27-2022 TSH 1.298 uIU/mL Normal 0.358-3.740 [facility] Comment on above: Performed By: #### L IPID, CMP, TSH ####[facility] [address] [place], [place] [address]Dr. Marysol Peace CAITLYN - TSHon 05-02-2022 TSH 2.031 uIU/mL Normal 0.358-3.740 [facility] Comment on above: Performed By: #### D ATTSH #### [facility] [address] [address] [address] Marysol Peace TSH RANGE SEE BELOW Normal [facility] Comment on above: Result Comment: <0.3 4 UIU/ml HYPERTHYROID 0.34-5.60 UIU/ml EUTHYROID >5.60 UIU/ml HYPOTHYROID Performed By: #### D ATTSH #### [facility] [address] [address] [address] Marysol Peace GLYCOHEMOGLOBIN A1Con 2021 ADA RECOMMENDATION SEE BELOW Normal [facility] Comment on above: Result Comment: ADA RECOMMENDED LIMIT 4.0 - 6.0 ADA THERAPEUTIC TARGET < 7.0 ACTION SUGGESTED > 7.0 Performed By: #### D ATA1C #### [facility] [address] [address] [address] Marysol Peace Glucose [Mass/Vol] 151 mg/dL Normal [facility] Comment on above: Performed By: #### D ATA1C #### [facility] [address] [address] [address] Marysol Peace HbA1c (Bld) [Mass fraction] 6.9 % Critically high 4.5-6.2 [facility] Comment on above: Performed By: #### D ATA1C #### [facility] [address] [place] [address] Dr. Marysol Peace XR KNEE RT 4V [...] by: JOSH COOK Date: 2022-02-26 16:36 Normal [facility] XR DEXA BONE DENSITYon 01-18 XR DEXA [...] - Low Fracture Risk Electronically authenticated by: PABLO MORRIS Date: 2022-01-18 16:32 Normal [facility] CBC AUTO DIFFon 12-06-2021 BASO # 0.0 103/ul Normal 0.0-0.1 [facility] Comment on above: Performed By: #### C BC ####[facility] [address] [address]Dr. Marysol Peace Basophils/100 WBC (Bld) 0.4 % Normal 0.2-2.0 [facility] Comment on above: Performed By: #### C BC ####[facility] [address] [id number]. Marysol Peace EO # 0.2 103/ul Normal 0.0-0.7 [facility] Comment on above: Performed By: #### C BC ####[facility] [address] [id number]. Marysol Peace Eosinophils/100 WBC (Bld) 2.4 % Normal 0.9-7.0 [facility] Comment on above: Performed By: #### C BC ####[facility] [address] [address]Dr. Marysol Peace Erythrocyte distribution width (RBC) [Ratio] 12.5 % Normal 11.0-15.0 [facility] Comment on above: Performed By: #### C BC ####[facility] [address] [address]Dr. Marysol Peace Hematocrit (Bld) [Volume fraction] 45.6 % Normal 36.0-48.0 [facility] Comment on above: Performed By: #### C BC ####[facility] [address] [place], [place] [address]Dr. Marysol Peace Hemoglobin (Bld) [Mass/Vol] 15.3 g/dL Normal 12.0-16.0 [facility] Comment on above: Performed By: #### C BC ####[facility] [address] [place], [place] [address]Dr. Marysol Peace IG # 0.03 10e3/ul Normal 0.00-0.03 [facility] Comment on above: Performed By: #### C BC ####[facility] [address] [place], [place] [address]Dr. Marysol Peace IG % 0.4 % Normal 0.0-0.5 [facility] Comment on above: Performed By: #### C BC ####[facility] [address] [place], [place] [address]Dr. Marysol Peace LYMPH # 1.4 103/ul Normal 1.2-3.8 [facility] Comment on above: Performed By: #### C BC ####[facility] [address] [place], [place] [address]Dr. Marysol Peace Lymphocytes/100 WBC (Bld) 19.9 % Critically low 20.5-60.0 [facility] Comment on above: Performed By: #### C BC ####[facility] [address] [place], [place] [address]Dr. Marysol Peace MANUAL DIFF REQ NO Normal [facility] Comment on above: Performed By: #### C BC ####[facility] [address] [address]DrLyubov Peace MCH (RBC) [Entitic mass] 29.5 pg Normal 26.7-34.0 [facility] Comment on above: Performed By: #### C BC ####[facility] [address] [place] [address] [address]DrLyubov Peace MCHC (RBC) [Mass/Vol] 33.6 g/dL Normal 29.9-35.2 [facility] Comment on above: Performed By: #### C BC ####[facility] [address] [address]DrLyubov Paece MCV (RBC) [Entitic vol] 87.9 fL Normal 81.0-99.0 [facility] Comment on above: Performed By: #### C BC ####[facility] [address] [place], [place] [address]DrLyubov Peace MONO # 0.8 103/ul Normal 0.3-0.8 [facility] Comment on above: Performed By: #### C BC ####[facility] [address] [place], [place] [address]DrLyubov Peace Monocytes/100 WBC (Bld) 11.8 % Normal 1.7-12.0 [facility] Comment on above: Performed By: #### C BC ####[facility] [address] [place], [place] [address]DrLyubov Peace NEUT # 4.4 103/ul Normal 1.4-6.5 [facility] Comment on above: Performed By: #### C BC ####[facility] [address] [place], [place] [address]DrLyubov Peace Neutrophils/100 WBC (Bld) 65.1 % Normal 43.0-75.0 [facility] Comment on above: Performed By: #### C BC ####[facility] [address] [place], [place] [address]DrLyubov Peace Platelet mean volume (Bld) [Entitic vol] 10.9 fL Normal 9.5-13.5 [facility] Comment on above: Performed By: #### C BC ####[facility] [address] [place], [place] [address]Za. Marysol Peace PLT 187 103/ul Normal 150-450 [facility] Comment on above: Performed By: #### C BC ####[facility] [address] [place], [place] [address]Da. Marysol Peace RBC 5.19 106/ul Normal 4.20-5.40 [facility] Comment on above: Performed By: #### C BC ####[facility] [address] [place], [place] [address]Sr. Marysol Peace WBC 6.8 103/ul Normal 4.0-11.0 [facility] Comment on above: Performed By: #### C BC ####[facility] [address] [place], [place] [address]So. Marysol Peace CT CHEST WO CONon 12-06-2021 [...] JULIAN SLAUGHTER Date: 2021-12-06 11:39 Normal [facility] GLYCOHEMOGLOBIN A1Con 2021 ADA RECOMMENDATION SEE BELOW Normal [facility] Comment on above: Result Comment: ADA RECOMMENDED LIMIT 4.0 - 6.0 ADA THERAPEUTIC TARGET < 7.0 ACTION SUGGESTED > 7.0 Performed By: #### A 1C ####[facility] [address] [address]Dr. Marysol Peace Glucose [Mass/Vol] 137 mg/dL Normal [facility] Comment on above: Performed By: #### A 1C ####[facility] [address] [place] [address]DrLyubov Peace HbA1c (Bld) [Mass fraction] 6.4 % Critically high 4.5-6.2 [facility] Comment on above: Performed By: #### A 1C ####[facility] [address] [address]Dr. Marysol Peace LIPID PROFILEon 12-06-2021 CHOL-HDL RATIO NORM SEE BELOW Normal [facility] Comment on above: Result Comment: 3.3 - 4.4 LOW RISK 4.4 - 7.1 AVERAGE RISK 7.1 - 11.0 MODERATE RISK >11.0 HIGH RISK Performed By: #### C MP, TSH, LIPID #### [facility] [address] [address] [address] Marysol Peace Cholesterol [Mass/Vol] 154 mg/dL Normal <=200 [facility] Comment on above: Performed By: #### C MP, TSH, LIPID #### [facility] [address] [address] [address] Marysol Peace Cholesterol in HDL [Mass/Vol] 33 mg/dL Critically low 40-60 [facility] Comment on above: Performed By: #### C MP, TSH, LIPID #### [facility] [address] [address] [address] Marysol Peace Cholesterol in LDL [Mass/Vol] 77.8 mg/dL Normal [facility] Comment on above: Performed By: #### C MP, TSH, LIPID #### [facility] [address] [address] [address] Marysol Peace Cholesterol.total/C holesterol in HDL [Mass ratio] 4.7 {ratio} Normal [facility] Comment on above: Performed By: #### C MP, TSH, LIPID #### [facility] [address] [address] [address] Marysol Peace HDL NORMAL > or = 60 mg/dl - LO W CARDIOVASCULAR RISK <40 mg/dl - HIGH CARDIOVASCULAR RISK Normal [facility] Comment on above: Performed By: #### C MP, TSH, LIPID #### [facility] [address] [address] [address] Marysol Peace LDL CALC NORMAL SEE BELOW Normal [facility] Comment on above: Result Comment: <100 mg/dl OPTIMAL 100 - 129 mg/dl NEAR OR ABOVE OPTIMAL 130 - 159 mg/dl BORDERLINE HIGH 160 - 189 mg/dl HIGH >190 mg/dl VERY HIGH Performed By: #### C MP, TSH, LIPID #### [facility] [address] [address] [address] Marysol Peace Triglyceride [Mass/Vol] 216 mg/dL Critically high <=150 [facility] Comment on above: Performed By: #### C MP, TSH, LIPID #### [facility] [address] [address] [address] Marysol Peace VLDL CALC 43.2 mg/dL Normal [facility] Comment on above: Performed By: #### C MP, TSH, LIPID #### [facility] [address] [address] [address] Marysol Peace MG MAMM DIAGNOSTIC 3D OMKAR CA Don 12-06-2021 MG MAMM DIAGNOSTIC 3D OMKAR CAD Patient: RENUKA CACERESLyubov Exam Date: 12/06/2021 : 1960 Gender:F Ordering : DR SINGH FOWLER D.O. Admission #: [id number] Family : Order #: [id number] CLICK HERE TO VIEW EXAM RADIOLOGY REPORT [...] colon/kidney cancer at age 38. LOCATION: [facility] BREAST COMPOSITION: Heterogeneously dense,which may obscure small [...] PALPABLE LUMP SHOULD BE BIOPSIED. Dictated by: Pablo Morris M.D. on 12/06/2021 at 10:45 Approved by: Pablo Morris M.D. on 12/06/2021 at 10:49 Normal [facility] PROF 14(COMP METB)on 022 Albumin [Mass/Vol] 4.0 g/dL Normal 3.4-5.0 [facility] Comment on above: Performed By: #### C MP, TSH, LIPID #### [facility] [address] [address] [address] Marysol Peace Albumin/Globulin [Mass ratio] 1.1 {ratio} Normal [facility] Comment on above: Performed By: #### C MP, TSH, LIPID #### [facility] [address] [address] [address] Marysol Peace ALP [Catalytic activity/Vol] 88 U/L Normal 46-116 [facility] Comment on above: Performed By: #### C MP, TSH, LIPID #### [facility] [address] [address] [address] Marysol Peace ALT [Catalytic activity/Vol] 36 U/L Normal 14-59 [facility] Comment on above: Performed By: #### C MP, TSH, LIPID #### [facility] [address] [address] [address] Marysol Peace Anion gap [Moles/Vol] 11.4 mmol/L Normal [facility] Comment on above: Performed By: #### C MP, TSH, LIPID #### [facility] [address] [address] [address] Marysol Peace AST [Catalytic activity/Vol] 18 U/L Normal 15-37 [facility] Comment on above: Performed By: #### C MP, TSH, LIPID #### [facility] [address] [address] [address] Marysol Peace Bilirubin [Mass/Vol] 0.5 mg/dL Normal 0.2-1.0 [facility] Comment on above: Performed By: #### C MP, TSH, LIPID #### [facility] [address] [place] [address] Dr. Marysol Peace Calcium [Mass/Vol] 9.5 mg/dL Normal 8.5-10.1 [facility] Comment on above: Performed By: #### C MP, TSH, LIPID #### [facility] [address] [address] [address] Marysol Peace Chloride [Moles/Vol] 102 mmol/L Normal 98-107 [facility] Comment on above: Performed By: #### C MP, TSH, LIPID #### [facility] [address] [address] [address] Marysol Peace CO2 [Moles/Vol] 31.7 mmol/L Normal 21.0-32.0 [facility] Comment on above: Performed By: #### C MP, TSH, LIPID #### [facility] [address] [address] [address] Marysol Peace Creatinine [Mass/Vol] 0.63 mg/dL Normal 0.55-1.02 [facility] Comment on above: Performed By: #### C MP, TSH, LIPID #### [facility] [address] [address] [address] Marysol Peace EGFR-AF LIBYAN >60 Normal >=60 [facility] Comment on above: Performed By: #### C MP, TSH, LIPID #### [facility] [address] [address] [address] Marysol Peace EGFR-NON AF LIBYAN >60 Normal >=60 [facility] Comment on above: Performed By: #### C MP, TSH, LIPID #### [facility] [address] [address] [address] Marysol Peace Globulin (S) [Mass/Vol] 3.7 g/dL Normal [facility] Comment on above: Performed By: #### C MP, TSH, LIPID #### [facility] [address] [address] [address] Marysol Peace Glucose [Mass/Vol] 129 mg/dL Critically high 74-106 [facility] Comment on above: Performed By: #### C MP, TSH, LIPID #### [facility] [address] [address] [address] Marysol Peace Potassium [Moles/Vol] 5.1 mmol/L Normal 3.5-5.1 [facility] Comment on above: Performed By: #### C MP, TSH, LIPID #### [facility] [address] [address] [address] Marysol Peace Protein [Mass/Vol] 7.7 g/dL Normal 6.4-8.2 [facility] Comment on above: Performed By: #### C MP, TSH, LIPID #### [facility] [address] [address] [address] Marysol Peace Sodium [Moles/Vol] 140 mmol/L Normal 136-145 [facility] Comment on above: Performed By: #### C MP, TSH, LIPID #### [facility] [address] [address] [address] Marysol Peace Urea nitrogen [Mass/Vol] 20.0 mg/dL Critically high 7.0-18.0 [facility] Comment on above: Performed By: #### C MP, TSH, LIPID #### [facility] [address] [address] [address] Marysol Peace Urea nitrogen/Creatinine [Mass ratio] 31.7 mg/mg Normal [facility] Comment on above: Performed By: #### C MP, TSH, LIPID #### [facility] [address] [place] [address] Dr. Marysol Peace TSHon 12-06-2021 TSH 1.978 uIU/mL Normal 0.358-3.740 [facility] Comment on above: Performed By: #### C MP, TSH, LIPID #### [facility] [address] [place] [address] Dr. Marysol Peace TSH RANGE SEE BELOW Normal [facility] Comment on above: Result Comment: <0.3 4 UIU/ml HYPERTHYROID 0.34-5.60 UIU/ml EUTHYROID >5.60 UIU/ml HYPOTHYROID Performed By: #### C MP, TSH, LIPID #### [facility] [address] [place] [address] Dr. Marysol Peace Vital Signs Date Time Vital Sign Value Performing Clinician Facility 03-24-2025 08:40-0400 Body height 162.56 cm Singh Ball DO Work Phone: [facility] 03-24-2025 08:40-0400 Body mass index (BMI) [Ratio] 32.7 kg/m2 Singh Ball DO Work Phone: [facility] 03-24-2025 08:40-0400 Body weight 86.4 kg Singh Ball DO Work Phone: [facility] 03-24-2025 08:40-0400 Diastolic blood pressure 89 mm[Hg] Singh Ball DO Work Phone: [facility] 03-24-2025 08:40-0400 Heart rate 90 /min Singh Ball DO Work Phone: [facility] 03-24-2025 08:40-0400 Respiratory rate 12 /min Singh Ball DO Work Phone: [facility] 03-24-2025 08:40-0400 Systolic blood pressure 139 mm[Hg] Singh Ball DO Work Phone: [facility] 01-08-2025 08:33-0400 Body height 162.56 cm Singh Ball DO Work Phone: [facility] 01-08-2025 08:33-0400 Body mass index (BMI) [Ratio] 31.4 kg/m2 Singh Ball DO Work Phone: [facility] 01-08-2025 08:33-0400 Body weight 83 kg Singh Ball DO Work Phone: [facility] 12-26-2024 10:53-0400 Body temperature 97.9 [degF] Singh Ball DO Work Phone: [facility] 12-26-2024 10:53-0400 Body weight 83.46 kg Singh Ball DO Work Phone: [facility] 12-26-2024 10:53-0400 Diastolic blood pressure 79 mm[Hg] Singh Ball DO Work Phone: [facility] 12-26-2024 10:53-0400 Heart rate 77 /min Singh Ball DO Work Phone: [facility] 12-26-2024 10:53-0400 Respiratory rate 18 /min Singh Ball DO Work Phone: [facility] 12-26-2024 10:53-0400 SaO2% (BldA) [Mass fraction] 98 % Singh Ball DO Work Phone: [facility] 12-26-2024 10:53-0400 Systolic blood pressure 156 mm[Hg] Singh Ball DO Work Phone: [facility] 11-14-2024 08:44-0400 Body height 170.18 cm [facility] 11-14-2024 08:44-0400 Body mass index (BMI) [Ratio] 30 kg/m2 [facility] 11-14-2024 08:44-0400 Body weight 87.14 kg [facility] 11-14-2024 08:44-0400 Diastolic blood pressure 89 mm[Hg] [facility] 11-14-2024 08:44-0400 Heart rate 80 /min [facility] 11-14-2024 08:44-0400 Respiratory rate 12 /min [facility] 11-14-2024 08:44-0400 Systolic blood pressure 139 mm[Hg] [facility] 08-19-2024 10:32-0500 Body height 170.18 cm [facility] 08-19-2024 10:32-0500 Body mass index (BMI) [Ratio] 30.4 kg/m2 [facility] 08-19-2024 10:32-0500 Body temperature 98.2 [degF] [facility] 08-19-2024 10:32-0500 Body weight 88.05 kg [facility] 08-19-2024 10:32-0500 Diastolic blood pressure 77 mm[Hg] [facility] 08-19-2024 10:32-0500 Heart rate 105 /min [facility] 08-19-2024 10:32-0500 Respiratory rate 16 /min [facility] 08-19-2024 10:32-0500 Systolic blood pressure 117 mm[Hg] [facility] 07-04-2024 11:24-0500 Body height 170.18 cm Singh Ball DO Work Phone: [facility] 07-13-2023 12:15-0500 Body height 170.18 cm Singh Ball Other [facility] Other 07-13-2023 12:15-0500 Diastolic blood pressure 80 mm[Hg] Singh Ball Other [facility] Other 07-13-2023 12:15-0500 Systolic blood pressure 135 mm[Hg] Singh Ball Other [facility] Other 07-07-2023 08:30-0500 Body height 170.18 cm Singh Ball Other [facility] Other 07-07-2023 08:30-0500 Body mass index (BMI) [Ratio] 34.83 kg/m2 Singh Ball Other [facility] Other 07-07-2023 08:30-0500 Body weight 100.88 kg Singh Ball Other [facility] Other 07-07-2023 08:30-0500 Diastolic blood pressure 89 mm[Hg] Singh Ball Other [facility] Other 07-07-2023 08:30-0500 Respiratory rate 16 /min Singh Ball Other [facility] Other 07-07-2023 08:30-0500 Systolic blood pressure 152 mm[Hg] Singh Ball Other [employer] Other 06-29-2023 09:36-0500 Body height 162.56 cm DO Singh Ball Work Phone: [facility] 06-29-2023 09:36-0500 Body temperature 98.3 [degF] DO Singh Ball Work Phone: [facility] 06-29-2023 09:36-0500 Body weight 91.85 kg DO Singh Ball Work Phone: [facility] 06-29-2023 09:36-0500 Diastolic blood pressure 80 mm[Hg] DO Singh Ball Work Phone: [facility] 06-29-2023 09:36-0500 Heart rate 83 /min DO Singh Ball Work Phone: [facility] 06-29-2023 09:36-0500 Respiratory rate 20 /min DO Singh Ball Work Phone: [facility] 06-29-2023 09:36-0500 SaO2% (BldA) [Mass fraction] 98 % DO Singh Ball Work Phone: [facility] 06-29-2023 09:36-0500 Systolic blood pressure 165 mm[Hg] DO Singh Ball Work Phone: [facility] 03-06-2023 08:30-0400 Body height 170.18 cm Singh Ball Other [facility] Other 03-06-2023 08:30-0400 Body mass index (BMI) [Ratio] 31.01 kg/m2 Singh Ball Other [facility] [employer] Other 03-06-2023 08:30-0400 Body weight 89.81 kg Singh Ball Other [facility] Other 03-06-2023 08:30-0400 Diastolic blood pressure 80 mm[Hg] Singh Ball Other [facility] Other 03-06-2023 08:30-0400 Respiratory rate 12 /min Singh Ball Other [facility] Other 03-06-2023 08:30-0400 Systolic blood pressure 152 mm[Hg] Singh Ball Other [facility] Other 12-28-2022 09:30-0400 Body temperature 97.9 [degF] DO Singh Ball Work Phone: [facility] 12-28-2022 09:30-0400 Body weight 90.26 kg DO Singh Ball Work Phone: [facility] 12-28-2022 09:30-0400 Diastolic blood pressure 88 mm[Hg] DO Singh Ball Work Phone: [facility] 12-28-2022 09:30-0400 Heart rate 79 /min DO Singh Ball Work Phone: [facility] 12-28-2022 09:30-0400 Respiratory rate 16 /min DO Singh Ball Work Phone: [facility] 12-28-2022 09:30-0400 SaO2% (BldA) [Mass fraction] 98 % DO Singh Ball Work Phone: [facility] 12-28-2022 09:30-0400 Systolic blood pressure 153 mm[Hg] DO Singh Ball Work Phone: [facility] 11-02-2022 10:30-0400 Body height 170.18 cm Singh Ball Other [facility] Other 11-02-2022 10:30-0400 Body mass index (BMI) [Ratio] 31.38 kg/m2 Singh Ball Other [facility] Other 11-02-2022 10:30-0400 Body weight 90.9 kg Singh Ball Other [facility] Other 11-02-2022 10:30-0400 Diastolic blood pressure 80 mm[Hg] Singh Ball Other [facility] Other 11-02-2022 10:30-0400 Respiratory rate 12 /min Singh Ball Other [facility] Other 11-02-2022 10:30-0400 Systolic blood pressure 136 mm[Hg] Singh Ball Other [facility] Other 11-02-2022 09:30-0400 Body height 170.18 cm Singh Ball Other [facility] Other 11-02-2022 09:30-0400 Body mass index (BMI) [Ratio] 31.38 kg/m2 Singh Ball Other [facility] Other 11-02-2022 09:30-0400 Body weight 90.9 kg Singh Ball Other [facility] Other 11-02-2022 09:30-0400 Diastolic blood pressure 80 mm[Hg] Singh Ball Other [facility] Other 11-02-2022 09:30-0400 Respiratory rate 12 /min Singh Ball Other [facility] Other 11-02-2022 09:30-0400 Systolic blood pressure 136 mm[Hg] Singh Ball Other [facility] Other 06-29-2022 08:22-0500 Body height 162.56 cm DO Singh Ball Work Phone: [facility] 06-29-2022 08:22-0500 Body weight 93.7 kg DO Singh Ball Work Phone: [facility] 06-29-2022 08:22-0500 Diastolic blood pressure 87 mm[Hg] DO Singh Ball Work Phone: [facility] 06-29-2022 08:22-0500 Heart rate 87 /min DO Singh Ball Work Phone: [facility] 06-29-2022 08:22-0500 Respiratory rate 20 /min DO Singh Ball Work Phone: [facility] 06-29-2022 08:22-0500 SaO2% (BldA) [Mass fraction] 97 % DO Singh Ball Work Phone: [facility] 06-29-2022 08:22-0500 Systolic blood pressure 157 mm[Hg] DO Singh Ball Work Phone: [facility] 04-13-2022 08:05-0400 Body weight 91.94 kg DO Singh Ball Work Phone: [facility] 04-13-2022 08:05-0400 Diastolic blood pressure 83 mm[Hg] DO Singh Ball Work Phone: [facility] 04-13-2022 08:05-0400 Heart rate 98 /min DO Singh Ball Work Phone: [facility] 04-13-2022 08:05-0400 Respiratory rate 20 /min DO Singh Ball Work Phone: [facility] 04-13-2022 08:05-0400 SaO2% (BldA) [Mass fraction] 96 % DO Singh Ball Work Phone: [facility] 04-13-2022 08:05-0400 Systolic blood pressure 147 mm[Hg] DO Singh Ball Work Phone: [facility] 01-13-2022 08:26-0400 Body temperature 97.8 [degF] DO Singh Ball Work Phone: [facility] 01-13-2022 08:26-0400 Body weight 91.62 kg DO Singh Ball Work Phone: [facility] 01-13-2022 08:26-0400 Diastolic blood pressure 79 mm[Hg] DO Singh Ball Work Phone: [facility] 01-13-2022 08:26-0400 Heart rate 82 /min DO Singh Ball Work Phone: [facility] 01-13-2022 08:26-0400 Respiratory rate 16 /min DO Singh Ball Work Phone: [facility] 01-13-2022 08:26-0400 SaO2% (BldA) [Mass fraction] 96 % DO Singh Ball Work Phone: [facility] 01-13-2022 08:26-0400 Systolic blood pressure 157 mm[Hg] DO Singh Ball Work Phone: [facility] 10-20-2021 08:57-0400 Body height 162.56 cm MD Thiago Durbin Work Phone: [facility] 10-20-2021 08:57-0400 Body temperature 98 [degF] MD Thiago Durbin Work Phone: [facility] 10-20-2021 08:57-0400 Body weight 95.11 kg MD Thiago Durbin Work Phone: [facility] 10-20-2021 08:57-0400 Diastolic blood pressure 78 mm[Hg] MD Thiago Durbin Work Phone: [facility] 10-20-2021 08:57-0400 Heart rate 87 /min MD Thiago Durbin Work Phone: [facility] 10-20-2021 08:57-0400 Respiratory rate 20 /min MD Thiago Durbin Work Phone: [facility] 10-20-2021 08:57-0400 SaO2% (BldA) [Mass fraction] 96 % MD Thiago Durbin Work Phone: [facility] 10-20-2021 08:57-0400 Systolic blood pressure 160 mm[Hg] MD Thiago Durbin Work Phone: [facility] Encounters Encounter Date Encounter Type Care Provider Facility Start: 03-24-2025 End: 03-24-2025 ambulatory Singh Fowler DO Work Phone: [facility] Work Phone: Start: 03-24-2025 End: 03-24-2025 Patient encounter procedure Singh Fowler -[facility] Work Phone: Start: 02-19-2025 ambulatory Singh Fowler Facility: [facility] Start: 02-19-2025 Registered Recurring Luc Bray DO -Physical [facility] [place] Start: 02-17-2025 Non-patient / Non-visit Angie Harding CMA -[facility] Work Phone: Start: 01-08-2025 End: 01-08-2025 ambulatory Singh Fowler DO Work Phone: [facility] Work Phone: Start: 01-08-2025 End: 01-08-2025 Patient encounter procedure Luc Bray DO -[facility] Work Phone: Start: 01-08-2025 End: 01-08-2025 Patient encounter procedure Luc Bray DO -[facility] Start: 01-08-2025 End: 01-08-2025 ambulatory Singh Ball DO Work Phone: [facility] Work Phone: Start: 12-26-2024 Registered Recurring Chiara Monaco MD -[facility] Work Phone: Start: 12-26-2024 ambulatory Chiara Hoffmann Facility:[facility] Start: 12-26-2024 End: 12-26-2024 Patient encounter procedure Maheshfausto Ferrari APRN -[facility] Work Phone: Start: 11-14-2024 End: 11-14-2024 ambulatory [facility] Work Phone: Start: 11-14-2024 End: 11-14-2024 Encounter for general adult medical examination without abnormal findings [facility] Start: 11-14-2024 End: 11-14-2024 Patient encounter procedure [facility] Work Phone: Start: 11-14-2024 End: 11-14-2024 Patient encounter status Singh Fowler DO [facility] Start: 08-19-2024 End: 08-19-2024 Patient encounter procedure [facility] Work Phone: Start: 07-13-2023 End: 07-13-2023 ambulatory Singh Ball Other [facility] Other Start: 07-13-2023 Office outpatient vi sit 15 minutes Singh Ball [facility] Start: 07-07-2023 End: 07-07-2023 ambulatory Singh Ball Other [facility] Other Start: 07-07-2023 Office outpatient vi sit 25 minutes Singh Ball [facility] Start: 06-29-2023 End: 06-29-2023 ambulatory DO Singh Ball Work Phone: [facility] Work Phone: Start: 06-29-2023 End: 06-29-2023 Registered Recurring DO Singh Ball Work Phone: [facility] Work Phone: Start: 06-06-2023 End: 06-06-2023 ambulatory Singh Fowler Other [facility] Other Start: 06-06-2023 Telephone encounter Singh Ball [facility] Start: 06-04-2023 End: 06-04-2023 ambulatory Singh Ball Other [facility] Other Start: 06-04-2023 Telephone encounter Singh Ball [facility] Start: 03-14-2023 End: 03-14-2023 ambulatory Singh Ball Other [facility] Other Start: 03-14-2023 Telephone encounter Singh Ball [facility] Start: 03-06-2023 End: 03-06-2023 ambulatory Singh Ball Other [facility] Other Start: 03-06-2023 Patient encounter procedure [facility] Start: 03-06-2023 Telephone encounter Singh Ball [facility] Start: 01-13-2023 End: 01-13-2023 ambulatory Singh Fowler Other [facility] Other Start: 01-13-2023 Telephone encounter Singh Ball [facility] Start: 01-12-2023 End: 01-12-2023 ambulatory Singh Ball Other [facility] Other Start: 01-12-2023 Telephone encounter Singh Ball [facility] Start: 01-11-2023 End: 01-12-2023 ambulatory Salazar MUNIZ Facility:[id number] Start: 12-28-2022 End: 12-28-2022 ambulatory DO Singh Fowler Work Phone: [facility] Work Phone: Start: 12-28-2022 End: 12-28-2022 Registered Recurring DO Singh Fowler Work Phone: [facility] Work Phone: Start: 12-02-2022 End: 12-03-2022 ambulatory Salazar MUNIZ Facility:[facility] Start: 11-28-2022 End: 11-29-[address] SINGH FOWLER Facility: Start: 11-02-2022 End: 11-02-2022 ambulatory Singh Fowler Other [facility] Other Start: 11-02-2022 Encounter for genera l adult medical examination without abnormal findings Singh Fowler [facility] Start: 11-02-2022 Periodic preventive med est patient 40-64yrs Singh Fowler [facility] Start: 10-14-2022 End: 10-14-2022 ambulatory Singh Fowler Other [facility] Other Start: 10-14-2022 Telephone encounter Singh [facility]ISHNAN [facility] Start: 10-03-2022 Encounter for genera l adult medical examination without abnormal findings DR SINGH FOWLER [facility] Start: 09-28-2022 End: 09-28-2022 ambulatory Singh Fowler Other [facility] Other Start: 09-28-2022 Telephone encounter Singh KRISHNAN [facility] Start: 09-27-2022 End: 09-28-2022 Encounter for general adult medical examination without abnormal findings DR SINGH FOWLER Facility:[facility] Start: 09-27-2022 End: 09-28-[address] SINGH FOWLER [facility] Other Start: 09-27-2022 Telephone encounter [facility] Start: 09-19-2022 End: 09-19-2022 ambulatory Singh Fowler Other [facility] Other Start: 09-19-2022 Encounter for genera l adult medical examination without abnormal findings Singh Fowler [facility] Start: 09-19-2022 Telephone encounter Singh Fowler FP [facility] Start: 09-16-2022 End: 09-16-2022 ambulatory Singh Fowler Other [facility] Other Start: 09-16-2022 Office outpatient vi sit 15 minutes Singh Fowler [facility] Start: 06-29-2022 End: 06-29-2022 ambulatory DO Singh Fowler Work Phone: [facility] Work Phone: Start: 06-29-2022 End: 06-29-2022 Registered Recurring DO Singh [facility] Start: 05-19-2022 End: 05-20-[address] SINGH FOWLER Facility:[facility] Start: 05-02-2022 End: 05-03-[address] SINGH FOWLER Facility:[facility] Start: 04-13-2022 End: 04-13-2022 ambulatory DO Singh Yudi Work Phone: [facility] Work Phone: Start: 04-13-2022 End: 04-13-2022 Registered Recurring DO Singh Fowler [facility] Start: 03-17-2022 End: 03-17-2022 ambulatory Vee Wadsworth Other [facility] Other Start: 03-17-2022 Office outpatient ne w 30 minutes Vee Wadsworth [facility] Start: 03-17-2022 End: 03-17-2022 Patient encounter procedure DO Singh Fowler Work Phone: [facility] Start: 02-26-2022 End: 02-26-2022 ambulatory HARSHAD CASTELLON . Facility:[facility] Start: 02-07-2022 ambulatory Salazar MUNIZ Facility:[facility] Start: 01-18-2022 End: 01-19-[address] PABLO MORRIS Facility:[facility] Start: 01-13-2022 End: 01-13-2022 Registered Recurring DO Singh Yudi [facility] Start: 01-02-2022 End: 01-02-[address] PABLO MORRIS Facility:[facility] Start: 12-06-2021 End: 12-07-[address] SINGH FOWLER Facility:[facility] Start: 10-20-2021 End: 10-20-2021 Registered Recurring MD Thiago Durbin [facility] Start: 03-08-2021 End: 06-01-2021 Pre-admission assessment Daniel Lopes [facility] Procedures Date Procedure Procedure Detail Performing Clinician Start: 01-08-2025 X-ray of right knee, four views Singh Fowler DO Work Phone: Start: 12-19-2024 Screening mammograph y of bilateral breasts Singh Fowler DO Work Phone: Start: 03-17-2022 X-ray of right [...] knee, four views XR knee RT 4V* [facility] Start: 01-08-2025 XR Knee - right 4 Views [facility] Start: 12-26-2024 Patient referral [facility] Work Phone: Start: 10-20-2021 [facility] Start: 04-06-2021 [facility] Comprehensive metabo lic 2000 panel - Serum or Plasma [facility] Computed tomography for radiotherapy planning [facility] DXA Skeletal system. axial Views for bone density [facility] DXA Skeletal system. axial Views for bone density [facility] MG Breast - bilatera l Diagnostic [facility] MG Breast - bilatera l Diagnostic [facility] Patient referral [facility] Work Phone: [facility] Immunizations Immunization Date Immunization Notes Care Provider Fa cility 08-06-2020 COVID-19 mRNA-1273 (Modernfausto) MD Thiago Durbin Work Phone: [facility] 06-16-2020 COVID-19 mRNA-1273 (Nila) MD Thiago Durbin Work Phone: [facility] 04-24-2013 tetanus and diphther ia toxoids, adsorbed, preservative free, for adult use (5 Lf of tetanus toxoid and 2 Lf of diphtheria toxoid) Singh Fowler Other [facility] Payers Date Payer Category Payer [facility] [id number] 2021 Self-pay [id number] 2021 Unknown [id number] 2019 Unknown [id number] Self-pay [id number] 1960 Unknown [id number] 2.16.84 [id number] 1958 Unknown [id number] 2.16.84 [id number] 1958 Unknown [id number] 2.16.84 [id number] 1958 Unknown [id number] 2.16.84 [id number] 1958 Unknown [id number] 2.16.84 0.1.997896.3.579.2.593 1958 Unknown [id number] 2.16.84 0.1.473177.3.579.2.593 1958 Unknown [id number] 2.16.84 0.1.552818.3.579.2.593 1958 Unknown [id number] 2.16.84 0.1.543057.3.579.2.593 1958 Unknown [id number] 2.16.8 40.1.617979.3.579.2.727 1958 Unknown [id number] 2.16.8 40.1.912328.3.579.2.727 1958 Unknown [id number] 2.16.8 40.1.212878.3.579.2.727 Unknown [id number] 2.16.84 0.1.168487.3.579.2.593 Unknown [id number] 2.16.84 0.1.455477.3.579.2.593 Unknown [id number] 2.16.8 40.1.983306.3.579.2.531 Unknown [id number] 2.16.8 40.1.311882.3.579.2.531 Unknown [id number] 2.16.8 [id number] Social History Date Type Detail Facility Start: 03-02-2021 Tobacco smoking status Never [facility] Start: 10-20-2021 End: 11-14-2024 Tobacco smoking status Never smoked tobacco (finding) [facility] Sex Assigned At Female [facility] Start: 1960 Sex Assigned At Female [facility] Start: 11-14-2024 Sex Female (finding) [facility] Clinical Notes 03-16-2021 to 12-26-2024 Note Date & Type Note Facility 12-26-2024 Evaluation note Diagnosis Onset Date Resolution Right knee pain acute December 10:37am Encounter for monitoring aromatase inhibitor therapy chronic December 26, 2024 10:37am 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 December 26 10:37am Osteoporosis screening chronic 2024 10:37am Encounter for monitoring aromatase inhibitor therapy chronic December 26, 2024 10:38am 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 December 26 10:38am Osteoporosis screening chronic 2024 10:38am Diabetes mellitus type 2, controlled, without complications deleted December 26, 2024 10:38am Pulmonary nodule less than 6 mm determined by computed tomography of lung deleted December 26, 2024 10:38am Primary osteoarthritis of right knee acute January 08, 2025 8:13am Chronic venous insufficiency acute March 24 8:21am Elevated cholesterol acute Mar 8:21am Obesity acute March 24, 2025 8:21am Primary hypertension acute Mar 8:21am Primary osteoarthritis of right knee acute March 24 8:21am Pulmonary nodule, right acute S epte2024 8:21am Type 2 diabetes mellitus with hyperglycemia acute March 8:21am 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 March 8:21am [facility] Work Phone: 1(349) 501-117405-01-2025 Evaluation note* Diagnosis Onset Date Resolution Status Admit Date Chronic venous insufficiency acute November 14, 2024 8:14am Elevated cholesterol acute November 14, 2024 8:14am Obesity acute November 14, 2024 8:14am Primary hypertension acute November 14, 2024 8:14am Pulmonary nodule, right acute M 2024 8:14am Type 2 diabetes mellitus wit h hyperglycemia acute November 14, 2024 8: 14am 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 November 14, 2024 8: 14am Welcome to Medicare preventi ve visit noneactive November 14, 2024 8: 14am Right knee pain acute December 10:37am Encounter for monitoring aromatase inhibitor therapy chronic December 26, 2024 10:37am 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 December 26, 2024 10:37am Osteoporosis screening chronic 2024 10:37am Encounter for monitoring aromatase inhibitor therapy chronic December 26, 2024 10:38am 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 December 26, 2024 10:38am Osteoporosis screening chronic Ju ne 2024 10:38am Diabetes mellitus type 2, controlled, without complications deleted December 26, 2024 10:38am Pulmonary nodule less than 6 mm determined by computed tomography of lung deleted December 26 10:38am Primary osteoarthritis of ri ght knee acute January 08, 2025 8:13am [facility] Work Phone: 1(130) 483-710502-03-2025 Evaluation note* Diagnosis Onset Date Resolution Status Admit Date Primary hypertension acute Febr 2024 10:16am Acute sinusitis noneactive August 19, 2024 10:16am Chronic venous insufficiency acute November 14, 2024 8:14am Elevated cholesterol acute November 14, 2024 8:14am Obesity acute November 14, 2024 8:14am Primary hypertension acute November 14, 2024 8:14am Pulmonary nodule, right acute M 2024 8:14am Type 2 diabetes mellitus wit h hyperglycemia acute November 14, 2024 8: 14am 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 November 14, 2024 8: 14am Welcome to Medicare preventive visit noneactive November 14, 2024 8 :14am [facility] Work Phone: 1(293) 468-227212-28-2023 Evaluation note* Encounter Date Diagnosis Assessment Notes [...] continue exercise to achieve/maintain a normal BMI. [facility] Other 12-22-2023 Evaluation note* Encounter Date Diagnosis [...] index [BMI] 31.0-31.9, adult (ICD-10 - Z68.31) [facility] Other 11-21-2023 Evaluation note* Encounter Date Diagnosis Assessment Notes Treatment Notes Treatment Clinical Notes May, Primary hypertension (ICD-10 - I10) [facility] Other 11-19-2023 Evaluation note* Encounter Date Diagnosis Assessment Notes Treatment Notes Treatment Clinical Notes May, Type 2 diabetes mellitus with hyperglycemia, without long-term current use of insulin (ICD-10 - E11.65) May, Primary hypertension (ICD-10 - I10) [facility] Other 08-21-2023 Evaluation note* Encounter Date Diagnosis [...] index [BMI] 31.0-31.9, adult (ICD-10 - Z68.31) [facility] Other 06-30-2023 Evaluation note* Encounter Date Diagnosis Assessment Notes Treatment Notes Treatment Clinical Notes Dec, Essential hypertension (ICD-10 - I10) [facility] Other 06-14-2023 Progress note Author Chiara Hoffmann [facility] December 28, 2022 9:59am Note Date/Time December 28, 2022 9:34 am [facility] [place] [address] Hem/Onc Follow Up Note - OP Signed Patient: Renuka Caceres MR#: [id number] : 1960 Acct:[id number] Age/Sex: 62 / F Type: REG RCR [...] was refilled today. [facility] on [facility]2022 showed heterogeneously dense breasts but [...] regularly. Last DEXA scan was normal at [place] 01/18/2022 will be due in 1 year. [...] on letrozole therapy for T2 N0 M0 ER/CT positive breast cancer, status postlumpectomy in February [...] on self-exam. We reviewed her mammogram from [facility] performed 10/06/2021 which returned with heterogeneously dense [...] this month and has these done at [place] [facility]. Wewill get this record once it's completed. [...] of 6 lymph nodes positive. ER and CT was positive, H ER 2 -. [facility] genetic testing was negative for BRCA 1 and 2. Oncotype DX showed low risk disease. She was started on radiation March 2021. Her family doctor is Dr. Juan Fowler and she was operated on by Dr. Salazar Kimble. AUGUSTINE: Now 62-year-old post-menopausal female- had menopause at [...] confirmedstage T2 N0 M0 invasive lobular carcinoma, Robinson grade 2 with associated ductal carcinoma in [...] was started on Arimidex May 2021 (at [place]). Did not tolerated/t hot flashes, so switched [...] labs for review - Impressions Imaging from [facility] reviewed: 11/28/2022: 3D diagnostic mammogram Breast composition: [...] stage T2 N0 M0 invasive lobular carcinoma, Robinson grade 2 with associated ductal carcinoma in [...] of May [address] Lopes at [place] [facility]. 07/20/2021: Stopped anastrozole due to severe hot [...] have her mammogram done this month at [place] [facility] and will have results sent to us. [...] for coordination of care (as documented) and [id number] counseling of patient and/or family. Dictated By: Chiara Hoffmann MD DD/ [id number] Signed By: <Electronically signed by MD Chiara Hoffmann> 12/28/[address] [facility] Work Phone: 1(990) 618-729505-19-2023 NoteChief Complaint consultation for screening colonoscopy HPI [...] Primary malignant neoplasm of (more content not included)...[facility] above:Result Comment: Electronically Signed By: Salazar MUNIZ MD\.br\Date and Time Signed: 12/02/22 14:59 [id number] Reason for referral (narrative)* Reason 12/02/22 Referral for screening colonoscopy in asymptomatic high risk patient. Diagnosis 1 Encounter for screen ing colonoscopy (Z12.11) Referral Organization [facility] Brooke baker Referring Provider First Name Singh Referring Provider Last Name Yudi Referring Provider Specialty Internal Me dicine Referred Organization [facility] Referred Provider Salazar Muniz Referred Address [address] [place] [id number] Referred Provider Specialty Surgery Referral Priority Routine Referral Appointment Date 2022-12-02 General Notes Kira Tran 12:38:54 PM >received today Kira Tran 11/03/2022 12:41:54 PM >notes locked, attachments made, referral faxed Kira Tran 11/10/2022 11:14:17 AM >faxed first attempt letter Kira Tran 11/14/2022 04:13:52 PM >received fax with appt date Kira Tran 12/08/2022 06:10:37 AM >notes in chart and reviewed. closing referral Clinical Notes [id number] [facility] Other 04-19-2023 Evaluation note* Encounter Date Diagnosis [...] to family hx of CRC. Recommend colonoscopy. [facility] Other 03-06-2023 Evaluation note* Encounter Date Diagnosis Assessment Notes Treatment Notes Treatment Clinical Notes Sep, Wellness examination (ICD-10 - Z00.00) [facility] Other 03-03-2023 Evaluation note* Encounter Date Diagnosis Assessment Notes Treatment Notes Treatment Clinical Notes Sep, Acute non-recurrent maxillary sinusitis (ICD-10 - J01.00) Instructed to use Robitussin or Mucinex for cough, saline or Flonase NS for congestion, Tylenol for pain and fever. Sep, Encounter by telehealth for suspected COVID-19 (ICD-10 - Z20.822) Aware of quarantine guidelines. Retest in 2 days if symptoms worsen [facility] Other 12-14-2022 Progress note Author Giovanna Shelton [facility] June 29, 2022 9:03am Note Date/Time June 29, 2022 8:52am [place] [address] Hem/Onc Follow Up Note - OP Signed Patient: Renuka Caceres MR#: [id number] : 1960 Acct:[id number] Age/Sex: 61 / F Type: REG RCR Copies to: MD Singh Greene,DO Daniel Lopes MD~ Subjective Date/Time of Service: Date of [...] on letrozole therapy for T2 N0 M0 ER/CT positive breast cancer, status postlumpectomy in February [...] on self-exam. We reviewed her mammogram from [facility] performed 10/06/2021 which returned with heterogeneously dense [...] this month and has these done at [place]. Eliazar get this record once it's completed. [...] of 6 lymph nodes positive. ER and CT was positive, H ER 2 -. [facility] genetic testing was negative for BRCA 1 and 2. Oncotype DX showed low risk disease. She was started on radiation March 2021. Her family doctor is Dr. Juan Fowler and she was operated on by Dr. Salazar Kimble. AUGUSTINE: 60-year-old post-menopausal female- had menopause at age [...] was started on Arimidex May 2021 (at [place]). Did not tolerated/t hot flashes, so switched [...] PO BID 03/11/21 [History Confirmed 06/29/22] hyaluronic uyzuii-rdpwmeulc-jhrw vera extract topical gel (RadiaPlexRx topical gel) [...] of May [address] Lopes at [place]. 07/20/2021: Stopped anastrozole due to severe hot [...] have her mammogram done this month at [place] and will have results sent to us. [...] for coordination of care (as documented) and rpkw-ph-rudg counseling of patient and/or family. Dictated By: Giovanna Shelton APRN DD/ 0846 Signed By: <Electronically signed by YEFRI Shelton> 06/29/22 0903 [facility] Work Phone: 1(196) 485-724209-28-2022 Progress note Author Giovanna Shelton [facility] April 13, 2022 9:15am Note Date/Time April 13, 2022 8:39am [facility] [place] [address] Hem/Onc Follow Up Note - OP Signed Patient: Renuka Caceres MR#: [id number] : 1960 Acct:[id number] Age/Sex: 61 / F Type: REG RCR [...] on letrozole therapy for T2 N0 M0 ER/CT positive breast cancer, status postlumpectomy in February [...] on self-exam. We reviewed her mammogram from [facility] performed 10/06/2021 which returned with heterogeneously dense breasts but no significant suspicious abnormalities and postsurgical changes in the right upper inner quadrant. She has not had baseline DEXA scan and we ordered this today. Advised to start calcium and vitamin D until DEXA findings which she will be contacted with afterreview. Next follow-up with nurse practitioner in 3 months, 6 months with [place]. Oumar complexity visit over 25 minutes for [...] this month and has these done at [place]. Weanita get this record once it's completed. [...] of 6 lymph nodes positive. ER and CT was positive, H ER 2 -. [employer] genetic testing was negative for BRCA 1 and 2. Oncotype DX showed low risk disease. She was started on radiation March 2021. Her family doctor is Dr. Juan Fowler and she was operated on by Dr. Salazar Kimble. AUGUSTINE: 60-year-old post-menopausal female- had menopause at age [...] was started on Arimidex May 2021 (at [place]). Did not tolerated/t hot flashes, so switched [...] PO BID 03/11/21 [History Confirmed 04/13/22] hyaluronic ygccws-zlotwbzky-soyu vera extract topical gel (RadiaPlexRx topical gel) [...] stage T2 N0 M0 invasive lobular carcinoma, Robinson grade 2 with associated ductal carcinoma in [...] of May [address] Lopes at [place]. 07/20/2021: Stopped anastrozole due to severe hot [...] have her mammogram done this month at [place] and will have results sent to us. [...] for coordination of care (as documented) and gydw-ch-mphz counseling of patient and/or family. Dictated By: Giovanna Shelton APRN DD/ 0826 Signed By: <Electronically signed by YEFRI Shelton> 04/13/22 0915 [facility] Work Phone: 1(251) 501-988709-01-2022 Evaluation note* Encounter Date Diagnosis Assessment Notes [...] as well as use of voltaren gel. [facility] Other 06-30-2022 Progress note Author Chiara Hoffmann [facility] January 13, 2022 12:36pm Note Date/Time January 13, 2022 8:34 am [facility] [place] [address] Hem/Onc Follow Up Note - OP Signed Patient: Renuka Caceres MR#: [id number] : 1960 Acct:[id number] Age/Sex: 61 / F Type: REG RCR [...] on letrozole therapy for T2 N0 M0 ER/CT positive breast cancer, status postlumpectomy in February [...] on self-exam. We reviewed her mammogram from [facility] performed 10/06/2021 which returned with heterogeneously dense breasts but no significant suspicious abnormalities and postsurgical changes in the right upper inner quadrant. She has not had baseline DEXA scan and we ordered this today. Advised to start calcium and vitamin D until DEXA findings which she will be contacted with afterreview. Next follow-up with nurse practitioner in 3 months, 6 months with [place]. Moderate complexity visit over 25 minutes for [...] this month and has these done at [place]. Lobitotanisha get this record once it's completed. -- [...] of 6 lymph nodes positive. ER and CT was positive, H ER 2 -. [employer] genetic testing was negative for BRCA 1 and 2. Oncotype DX showed low risk disease. She was started on radiation March 2021. Her family doctor is Dr. Juan Fowler and she was operated on by Dr. Salazar Kimble. AUGUSTINE: 60-year-old post-menopausal female- had menopause at age [...] was started on Arimidex May 2021 (at [place]). Did not tolerated/t hot flashes, so switched [...] Negative for environmental allergies and food allergies. [facility] - History Attestation statement: The following information [...] PO BID 03/11/21 [History Confirmed 01/13/22] hyaluronic tgzfol-dvrtoxhyr-sowq vera extract topical gel (RadiaPlexRx) 1 applicTOPICAL [...] stage T2 N0 M0 invasive lobular carcinoma, Robinson grade 2 with associated ductal carcinoma in [...] of May [address] Lopes at [place]. 07/20/2021: Stopped anastrozole due to severe hot [...] have her mammogram done this month at [place] and will have results sent to us. [...] for coordination of care (as documented) and eubj-db-zvvj counseling of patient and/or family. Dictated By: Chiara Hoffmann MD DD/ 1 Signed By: <Electronically signed by MD Chiara Hoffmann> 01/13/22 1236 [facility] Work Phone: 1(509) 686-735806-30-2022 Progress note Author Darshan Solomon [facility] January 13, 2022 9:17am Note Date/Time January 13, 2022 8:59 am [facility] [place] [address] Rad Onc Follow Up Note - OP Signed Patient: Renuka Caceres MR#: [id number] : 1960 Acct:[id number] Age/Sex: 61 / F Type: REG RCR [...] pathological stage pT2 pN0 M0, ER positive, CT positive and HER-2/rikki negative, stage Ib. Patient [...] N0 M0 invasive lobular carcinoma, Castillo grade 2with associated ductal carcinoma in situ [...] signed by Darshan Solomon MD> 01/13/22 0917 [facility] Work Phone: 1([phone]) 797-693406-19-2022 NotePROCEDURE: XR FINGER MIN 2 VIEWS HISTORY: [...] sequela of remote injury. Electronically authenticated by: PABLO MORRIS Date: 2022-01-02 10:32[facility]04-06-2022 Progress note Author Giovanna Jericamaximo [facility] October 20, 2021 12:49pm Note Date/Time October 20, 2021 9:21 am [place] [address] Hem/Onc Follow Up Note - OP Signed Patient: Renuka Caceres MR#: [id number] : 1960 Acct:[id number] Age/Sex: 60 / F Type: REG RCR [...] this month and has these done at [place]. Eliazar get this record once it's completed. [...] of 6 lymph nodes positive. ER and CT was positive, H ER 2 -. [employer] genetic testing was negative for BRCA 1 and 2. Oncotype DX showed low risk disease. She was started on radiation March 2021. Her family doctor is Dr. Juan fowler and she was operated on by Dr. Salazar Kimble. AUGUSTINE: 60-year-old post-menopausal female- had menopause at age [...] stage T2 N0 M0 invasive lobular carcinoma, Robinson grade 2 with associated ductal carcinoma in [...] was started on Arimidex May 2021 (at [place]). Did not tolerated/t hot flashes, so switched to letrozole 08/11/2021 -- Will continue letrozole for 5 years (May 2026) [facility] - Medical History Medical History: Medical [...] PO BID 03/11/21 [History Confirmed 10/20/21] hyaluronic zrgnhu-cabguydil-pztl vera extract topical gel (RadiaPlexRx) 1 applicTOPICAL [...] stage T2 N0 M0 invasive lobular carcinoma, Robinson grade 2 with associated ductal carcinoma in [...] of May [address] Lopes at [place]. 07/20/2021: Stopped anastrozole due to severe hot [...] have her mammogram done this month at [place] and will have results sent to us. [...] for coordination of care (as documented) and sokj-ky-yahk counseling of patient and/or family. Dictated By: Giovanna Shelton APRN DD/ 0 Signed By: <Electronically signed by YEFRI Shelton> 10/20/21 1249 [facility] Work Phone: 1(790) 888-560801-04-2022 Progress note Author Daniel Lopes [facility] July 20, 2021 10:06am Note Date/Time July 20, 2021 9: 54am [facility] [place] [address] Hem/Onc Follow Up Note - OP Signed Patient: Renuka Caceres MR#: [id number] : 1960 Acct:[id number] Age/Sex: 60 / F Type: REG RCR [...] of 6 lymph nodes positive. ER and CT was positive, H ER 2 -. [employer] [...] PO BID 03/11/21 [History Confirmed 07/20/21] hyaluronic nnpmcc-teeuffcpb-dgyy vera extract topical gel (RadiaPlexRx) 1 applicTOPICAL [...] for coordination of care (as documented) and zhgl-dt-vvbc counseling of patient and/or family. Dictated By: Daniel Lopes MD DD/ 0954 Signed By: <Electronically signed by MD Daniel Lopes> 07/20/21 6094 [facility] Work Phone: 1(223) 138-853412-09-2021 Progress note Author Thiago Montieluja [facility] June 24, 2021 10:35am Note Date/Time June 24, 2021 1 0:26am [facility] [place] [address] Rad Onc Follow Up Note - OP Signed Patient: Renuka Caceres MR#: [id number] : 1960 Acct:[id number] Age/Sex: 60 / F Type: REG RCR Copies to: DO Daniel Calvert MD Michael R Nill, MD FACS~ Subjective - Service Date/Time Date: 06/24/21 Time: 10:15 - Diagnosis Invasive lobular carcinoma of the upper medial quadrant of the right breast, grade 1 with associated DCIS and LCIS, pathological stage pT2 pN0 M0, ER positive, CT positive and HER-2/rikki negative, stage Ib. - [...] stage T2 N0 M0 invasive lobular carcinoma, Robinson grade 2 with associated ductal carcinoma in [...] pathological stage pT2 pN0 M0, ER positive, CT positive and HER-2/rikki negative, stage Ib. Assessment [...] quadrant, stage pT2 pN0 M0, ER positive, CT positive and HER-2 negative, stage Ib had [...] than 30 minutes I spent 20 minutes nvww-yk-qvcf time with this patient and more than [...] signed by Thiago Durbin MD> 06/24/21 1035 [facility] Work Phone: 1(763) 766-382209-21-2021 Progress note Author Daniel Lopes [facility] April 06, 2021 9:12am Note Date/Time April 06, 2021 9:10am [facility] at [place] [id number] Hem/Onc Follow Up Note - OP Signed Patient: Renuka Caceres MR#: [id number] : 1960 Acct:[id number] Age/Sex: 60 / F Type: REG RCR [...] today and starting radiation. She is from [facility] and will follow up with me in 2 months to start adjuvant radiationtherapy. This is a very nice 60-year-old female with a lobular carcinoma of the breast who I saw at [facility]. Oncotype DX was done which showed lowrisk disease and no indications for chemotherapy. Because of strong family history, we did do [employer] genetic testing which was negative. She will be getting radiation simulation today April 06, 2021 and then follow-up with me in 2 months to start adjuvant hormonal therapy at [facility]. Subjective/ROS - Narrative: Negative review of systems today [facility] - Medical History Medical History: Medical [...] and see me in 2 months in [place] to start adjuvant hormonal therapy with an aromatase similar for 5 years. - Time with Patient Coordination of Care & Counseling Time: Greater than 50% of time spent with patient was for coordination of care (as documented) and miui-vr-gsrx counseling of patient and/or family. Dictated By: Daniel Lopes MD DD/ 6 Signed By: <Electronically signed by MD Daniel Lopes> 04/06/21911 [facility] Work Phone: [phone]) [phone] Consult note Author Thiago Durbin [facility] March 16, 2021 3:14pm Note Date/Time March 12, 2021 11 :51am [facility] [place] [address] Rad Onc Consult Note - OP Signed with Addenda Patient: Renuka Caceres MR#: [id number] : 1960 Acct:[id number] Age/Sex: 60 / F Type: REG RCR [...] pathological stage pT2 pN0 M0, ER positive, CT positive and HER-2/rikki negative, stage Ib. Chief [...] stage T2 N0 M0 invasive lobular carcinoma, Robinson grade 2 with associated ductal carcinoma in [...] pathological stage pT2 pN0 M0, ER positive, CT positive and HER-2/rikki negative, stage Ib. Assessment [...] quadrant, stage pT2 pN0 M0, ER positive, CT positive and HER-2 negative, stage Ib had [...] Dr. Lopes's care as her ER and CT receptors are strongly positive. Total Time Spent with Patient: Greater than 30 minutes I spent 50 minutes oqwh-gr-pmas time with this patient and more than [...] signed by Thiago Durbin MD> 03/12/21 1422 [facility] Work Phone: Evaluation + Plan note No data available for this section [facility] Diagnosis Onset Date Resolution Status Malignant neoplasm of upper- inner quadrant of right female breast acute [facility] Work Phone: Evaluation note* Diagnosis Onset Date Resolution Status Malignant neoplasm of upper- inner quadrant of right female breast chronic Osteoporosis screening chron ic [facility] Work Phone: Evaluation note* Diagnosis Onset Date Resolution Status Encounter for monitoring aromatase inhibitor therapy chronic Malignant neoplasm of upper- inner quadrant of right female breast chronic Osteoporosis screening chron ic [facility] Work Phone: Evaluation noteNo [facility] Other Evaluation note* Diagnosis Onset Date Resolution Status Diabetes mellitus type 2, co ntrolled, without complications chronic Encounter for monitoring aromatase inhibitor therapy chronic Malignant neoplasm of upper- inner quadrant of right female breast chronic Osteoporosis screening [facility] Pulmonary nodule less than 6 mm determined by computed tomography of lung chronic [facility] Work Phone: History general Narrative - Reported* Type Description Date Medical History Hypertension Medical History diabetes mallitus Medical History breast cancer Surgical History tonsillectomy Surgical History C section Surgical History left ORIF by Dr. Aleman [facility] Other Hiszbif general Narrative - Reported* Type Description Date [...] Surgical History left ORIF by Dr. Aleman [facility] Other history general Narrative - Reported* Type [...] Dr. Aleman Hospitalization History see surgical hx [facility] Other history general Narrative - Reported* Type [...] Colonoscopy 12/2022 Hospitalization History see surgical hx [facility] Other History general Narrative - Reported* Type [...] Colonoscopy 12/2022 Hospitalization History see surgical hx [facility] Other Hospital Discharge instructions No data available for this section [facility] April 13, 2022 9:15am Note Date/Time April 13, 2022 8:39am [facility] [place] [address] Hem/Onc Follow Up Note - OP Signed Patient: Renuka Caceres MR#: [id number] : 1960 Acct:[id number] Age/Sex: 61 / F Type: REG RCR [...] on letrozole therapy for T2 N0 M0 ER/CT positive breast cancer, status postlumpectomy in February [...] on self-exam. We reviewed her mammogram from [facility] performed 10/06/2021 which returned with heterogeneously dense [...] this month and has these done at [place]. Weanita get this record once it's completed. [...] of 6 lymph nodes positive. ER and CT was positive, H ER 2 -. [employer] genetic testing was negative for BRCA 1 and 2. Oncotype DX showed low risk disease. She was started on radiation March 2021. Her family doctor is Dr. Juan Fowler and she was operated on by Dr. Salazar Kimble. AUGUSTINE: 60-year-old post-menopausal female- had menopause at age [...] stage T2 N0 M0 invasive lobular carcinoma, Robinson grade 2 with associated ductal carcinoma in [...] was started on Arimidex May 2021 (at [place]). Did not tolerated/t hot flashes, so switched [...] PO BID 03/11/21 [History Confirmed 04/13/22] hyaluronic jbewcp-lttyafxwr-upqr vera extract topical gel (RadiaPlexRx topical gel) [...] stage T2 N0 M0 invasive lobular carcinoma, Robinson grade 2 with associated ductal carcinoma in [...] of May [address] Lopes at [place]. 07/20/2021: Stopped anastrozole due to severe hot [...] have her mammogram done this month at [place] and will have results sent to us. [...] for coordination of care (as documented) and vlxx-gg-cgbd counseling of patient and/or family. Dictated By: Giovanna Shelton APRN DD/ 5 Signed By: <Electronically signed by YEFRI Shelton> 04/13/2215 [facility] Work Phone: Progress note Author Giovanna Shelton [facility] June 29, 2022 9:03am Note Date/Time June 29, 2022 8:52am [facility] at [address] [address] Hem/Onc Follow Up Note - OP Signed Patient: Renuka Caceres MR#: [id number] : 1960 Acct:[id number] Age/Sex: 61 / F Type: REG RCR [...] on letrozole therapy for T2 N0 M0 ER/CT positive breast cancer, status postlumpectomy in February [...] on self-exam. We reviewed her mammogram from [facility] performed 10/06/2021 which returned with heterogeneously dense [...] this month and has these done at [place]. Wewill get this record once it's completed. [...] of 6 lymph nodes positive. ER and CT was positive, H ER 2 -. [employer] genetic testing was negative for BRCA 1 and 2. Oncotype DX showed low risk disease. She was started on radiation March 2021. Her family doctor is Dr. Juan Fowler and she was operated on by Dr. Salazar Harley AUGUSTINE: 60-year-old post-menopausal female- had menopause at age [...] stage T2 N0 M0 invasive lobular carcinoma, Robinson grade 2 with associated ductal carcinoma in [...] was started on Arimidex May 2021 (at [place]). Did not tolerated/t hot flashes, so switched [...] PO BID 03/11/21 [History Confirmed 06/29/22] hyaluronic khoggb-ingnrxodx-pqfa vera extract topical gel (RadiaPlexRx topical gel) [...] of May [address] Lopes at [place]. 07/20/2021: Stopped anastrozole due to severe hot [...] have her mammogram done this month at [place] and will have results sent to us. [...] for coordination of care (as documented) and zvzt-ig-hjqa counseling of patient and/or family. Dictated By: Giovanna Shelton APRN DD/ 0846 Signed By: <Electronically signed by YEFRI Shelton> 06/29/22 0903 [facility] Work Phone: Progress note Author Chiara Hoffmann [facility] December 28, 2022 9:59am Note Date/Time December 28, 2022 9:34 am [facility] [place] [address] Hem/Onc Follow Up Note - OP Signed Patient: Renuka Caceres MR#: [id number] : 1960 Acct:[id number] Age/Sex: 62 / F Type: REG RCR [...] was refilled today. Her mammogramwas performed at [facility] on 11/28/2022 showed heterogeneously dense breasts but [...] regularly. Last DEXA scan was normal at [place] 01/18/2022 will be due in 1 year. [...] on letrozole therapy for T2 N0 M0 ER/CT positive breast cancer, status postlumpectomy in February [...] on self-exam. We reviewed her mammogram from [facility] performed 10/06/2021 which returned with heterogeneously dense breasts but no significant suspicious abnormalities and postsurgical changes in the right upper inner quadrant. She has not had baseline DEXA scan and we ordered this today. Advised to start calcium and vitamin D until DEXA findings which she will be contacted with afterreview. Next follow-up with nurse practitioner in 3 months, 6 months with w[place]. Moderate complexity visit over 25 minutes for [...] this month and has these done at [place]. Lobitotanisha get this record once it's completed. -- [...] of 6 lymph nodes positive. ER and CT was positive, H ER 2 -. [employer] genetic testing was negative for BRCA 1 and 2. Oncotype DX showed low risk disease. She was started on radiation March 2021. Her family doctor is Dr. Juan Fowler and she was operated on by Dr. Salazar Kimble. AUGUSTINE: Now 62-year-old post-menopausal female- had menopause at [...] was started on Arimidex May 2021 (at [place]). Did not tolerated/t hot flashes, so switched [...] Negative for environmental allergies and food allergies. [facility] - History Attestation statement: The following [...] labs for review - Impressions Imaging from [facility] reviewed: 11/28/2022: 3D diagnostic mammogram Breast composition: [...] stage T2 N0 M0 invasive lobular carcinoma, Robinson grade 2 with associated ductal carcinoma in [...] stage T2 N0 M0 invasive lobular carcinoma, Robinson grade 2 with associated ductal carcinoma in [...] of May [address] Lopes at [place]. 07/20/2021: Stopped anastrozole due to severe hot [...] have her mammogram done this month at [place] and will have results sent to us. [...] for coordination of care (as documented) and mfgs-iq-mism counseling of patient and/or family. Dictated By: Chiara Hoffmann MD DD/ 0933 Signed By: <Electronically signed by MD Chiara Hoffmann> 12/28/[address] [facility] Work Phone: Reason for referral (narrative)* Reason Referral for screeni ng colonoscopy in asymptomatic high risk patient. Diagnosis 1 Encounter for screen ing colonoscopy (Z12.11) Referral Organization [facility] Yudi baker Referring Provider First Name Singh Referring Provider Last Name Yudi Referring Provider Specialty Internal Me humberto Referred Provider Salazar Muniz Referred Provider Specialty Surgery Referral Priority Routine [facility] Other Reason for referral (narrative)No reason for referral information available[facility] Work Phone: Chief Complaint and Reason for Visit Chief [...] of right knee Wu e 2024 8:13am Chief Complaint Admit Date Follow Up December 26, 2024 10:3 7am Rt Breast Cancer December 26, 2024 10:3 8am M17.11 - Unilateral primary osteoarthrit is, right January 08, 2025 7:12am CONSULT MAHESH FERRARI RT KNEE PAIN NX, Ju 2024 8:13am Amb Documentation February 17, 2025 1:1 7pm R Knee OA February 19, 2025 8:0 0am 4 month f/u March 24, 2025 8:21am Reason for Visit Admit Date Right knee pain December 26, 2024 10:3 [...] 2024 1 0:38am Diabetes mellitus type 2, co ntrolled, without complications December 26, 2024 10:38am Pulmonary nodule less than 6 mm determined by computed tomography of lung December 26, 2024 10:38am Primary osteoarthritis of right knee Wu 2024 8:13am Chronic venous insufficiency March 242024 8:21am Elevated cholesterol March 24, 2025 8:21am Obesity March 24, 2025 8:21am Primary hypertension March 24, 2025 8:21am Primary osteoarthritis of right knee Sep tember 2024 8:21am Pulmonary nodule, right March 24, 2 025 8:21am Type 2 diabetes mellitus with hyperglyce denise March 24, 2025 8:21am Malignant neoplasm of upper- inner quadrant of right female breast March 24, 2025 8:21am Family History Relationship Condition Age at Onset [...] Active Team Status: Inactive Member Role Status Vikram Fowler DO Primary Care Provide r, Attending Provider Active Start: August 19, 2024 End: August 19, 2024 Team Status: Inactive Member Role Status Vikram Fowler DO Primary Care Provide r, Attending Provider Active Start: November 14, 2024 End: November 14, 2024 Team Status: Active Member Role Status Dates Thiago Durbin MD Attending Provider Active Signh Fowler DO Primary Care Provider Active Daniel Lopes MD Referring Provider Active Team Status: Active Member Role Status Vikram Fowler DO Primary Care Provider Active Daniel Lopes MD Referring Provider Active Chiara Hoffmann MD Attending Provider Active Team Status: Inactive Member Role Status Vikram Fowler DO Primary Care Provider Active [place] [...] Active Start: January 08, 2025 Luc Bray , Attending Provider Active S tart: January 08, 2025 Team Status: Inactive Member Role Status Dates Singh Fowler DO Primary Care Provider Active Start: January 08, 2025 End: January 08, 2025 Luc Bray DO Attending Provider Active S tart: January 08, 2025 End: January 08, 2025 Team Status: Active Member Role Status Dates Singh Fowler DO Primary Care Provider Active Start: February 17, 2025 Angie Metcalf CMA Attending Provider Active Start: February 17, 2025 Team Status: Active Member Role Status Dates Singh Fowler DO Primary Care Provider Active Start: February 19, 2025 Luc Bray DO Attending Provider Active S tart: February 19, 2025 Team Status: Inactive Member Role Status Dates Singh Fowler DO Primary Care Provider Active Start: March 24, 2025 End: March 24, 2025 Singh Fowler DO Attending Provider Active Sta rt: March 24, 2025 End: March 24, 2025 Goals (unrecognized section and content) Goals may be documented in a n alternate section REASON FOR VISIT (unrecogniz ed section and content) Right Knee [phone] COVID negative, possible sinus infectionNo InformationNo InformationRefill6 MONTH CHECK UPLab ResultsRefillNo InformationNo Information4 month Follow upNo InformationCT scan6 MONTH CHECK UPLab ResultsNo InformationNo Information4 month Follow upsore throat, cough , testing for COVID INFORMATION SOURCE (unrecogn ized section and content) DATE CREATED AUTHOR 11/29/2022 [facility] DATE CREATED AUTHOR AUTHOR'S ORGANIZ ATION 01/13/2023 [facility] DATE CREATED AUTHOR AUTHOR'S ORGANIZ ATION 02/21/2025 [facility] FOR RECORDS PERTAINING TO PATIENTS [...] BE BASED ON THE PRIMARY CLINICAL RECORDS. [facility]. provides no warranty or guarantee of the accuracy or completeness of information in this document.
[2025-03-24 10:00] LABS: Microalbum Creatinine Ratio Ur 11.8 mg/g (0.0-29.9)
[2025-03-24 10:01] LABS: Alanine Aminotransferase 36 U/L (14-59); Albumin Globulin Ratio 1.1; Albumin Level 4.0 g/dL (3.4-5.0); Alkaline Phosphatase 95 U/L (46-116); Anion Gap 15.3; Aspartate Amino Transferase 15 U/L (15-37); Blood Urea Nitrogen 20.0 mg/dL (7.0-18.0); Calcium 8.8 mg/dL (8.5-10.1); Carbon Dioxide 26.8 mmol/L (21.0-32.0); Chloride 106 mmol/L (98-107); Cholesterol 136 mg/dL (<=200); Estimated GFR (African America >60 (>=60 mL/min/1.73m^2); Estimated GFR (Non-African Ame >60 (>=60 mL/min/1.73m^2); Globulin 3.5 g/dL; Glucose 158 mg/dL (74-106); HDL Cholesterol 33 mg/dL (40-60); Potassium 4.1 mmol/L (3.5-5.1); Sodium 144 mmol/L (136-145); Total Protein 7.5 g/dL (6.4-8.2); Triglycerides 274 mg/dL (<=150); VLDL CHOLESTEROL 54.8 mg/dL
[2025-03-24 10:13] LABS: Hematocrit 44.7 % (36.0-48.0); Hemoglobin 15.1 g/dL (12.0-16.0); Immature Granulocytes Abs Auto 0.03 10^3/uL (0.00-0.03); Immature Granulocytes Pct Auto 0.4 % (0.0-0.5); Lymphocytes Absolute Auto 1.8 10^3/uL (1.2-3.8); Mean Corpuscular HGB Conc 33.8 g/dL (29.9-35.2); Mean Corpuscular Hemoglobin 30.8 pg (26.7-34.0); Mean Corpuscular Volume 91.0 fL (81.0-99.0); Platelet Count 176 10^3/uL (150-450); Red Blood Count 4.91 10^6/uL (4.20-5.40); White Blood Count 7.5 10^3/uL (4.0-11.0)
== END 2025-03-24 09:16 | disposition home or self-care (01) ==
LOC: LAB 09:16
PROVIDERS: PCP Internal Medicine; Visit Provider Internal Medicine
DX: E78.00 Pure hypercholesterolemia, unspecified (principal); E11.65 Type 2 diabetes mellitus with hyperglycemia; I10 Essential (primary) hypertension; I87.2 Venous insufficiency (chronic) (peripheral)
CPT/HCPCS: 36415; 80053; 80061; 82043; 82570; 83036; 85025

== ENCOUNTER 2025-05-30 16:23 | Emergency (ER) | payer MEDICARE, SELFPAY ==
[2025-05-30 16:28] VITALS: BP 183/75; PULSE 107; TEMP 36.9; O2SAT 96; BMI 32.6
--- OUTSIDE RECORDS SUMMARY | 2025-05-30 16:49 | XMS_ITS | CCD ---
Author Organization [facility] Care Team Providers Care Education Faculty Member Name Role Phone SINGH FOWLER Primary Care Physician MD Thiago Durbin Attending Provider DO Singh Fowler Primary Care Provider [phone] MD Daniel Lopes Referring Provider DO Singh Fowler Primary Care Provider MD Daniel Lopes Referring Provider Unavailable MD Chiara Hoffmann Attending Provider [phone] Vee Wadsworth Unavailable DO Singh Fowler Primary Care Provider MD Naga Acuna Attending Provider MD Daniel Lopes Referring Provider Unavailable MD Chiara Hoffmann Attending Provider [phone] DO Singh Fowler Primary Care Provider MD Daniel Lopes Referring Provider Unavailable MD Chiara Hoffmann Attending Provider Singh Fowler Unavailable Sydney Mayes Unavailable DR CHIARA HOFFMANN Attending Unavailable SHUN, DR CHIARA [place] Admitting Unavailable YUDI, DR CHURCH Primary Care Unavailable MATEUSZ, DR PABLO Quintero Consulting Unavailable CANDE ., HARSHAD Attending Unavailable CANDE ., HARSHAD Admitting Unavailable YUDI, DR CHURCH Primary Care Unavailable CANDE ., HARSHAD Consulting Unavailable CANDE ., HARSHAD Consulting Unavailable CANDE ., HARSHAD Attending Unavailable CANDE ., HARSHAD Admitting Unavailable YUDI, DR CHURCH Primary Care Unavailable KLYMJOSH Consulting Unavailable YUDI, DR CHURCH Primary Care Unavailable YUDI, DR CHURCH Attending Unavailable REQUEST, DR JUAN DIEGO LISTED Consulting Unavaila ble BALL, DR CHURCH Admitting Unavailable BALL, DR CHURCH Consulting Unavailable BALL, DR CHURCH Attending Unavailable BALL, DR CHURCH Admitting Unavailable BALL, DR CHURCH Primary Care Unavailable ZIEBER, DR PABLO Quintero Consulting Unavailable BALL, DR CHURCH Primary Care Unavailable BALL, DR CHURCH Consulting Unavailable BALL, DR CHURCH Attending Unavailable BALL, DR CHURCH Admitting Unavailable ZIEBER, DR PABLO Quintero Consulting Unavailable SHUN, DR CHIARA Mon[place] Attending Unavailable SHUN, DR CHIARA [place] Admitting Unavailable BALL, DR CHURCH Primary Care Unavailable SHUN, DR CHIARA [place] Consulting Unavailable BALL, DR CHURCH Primary Care Unavailable BALL, DR CHURCH Consulting Unavailable BALL, DR CHURCH Attending Unavailable BALL, DR CHURCH Admitting Unavailable WEST, DR JULIAN Mendez Consulting Unavailable ZIEBER, DR PABLO Quintero Consulting Unavailable SHUN, DR CHIARA [place] Consulting Unavailable BALL, DR CHURCH Primary Care Unavailable MISC, DR CODY Consulting Unavailable MISC, DR CODY Attending Unavailable MISC, DR CODY Admitting Unavailable ZIEBER, DR PABLO Quintero Consulting Unavailable BALL, DR CHURCH Primary Care Unavailable HOY ., DR GARZA Consulting Unavailable HOY ., DR GARZA Attending Unavailable HOY ., DR GARZA Admitting Unavailable Ball, DO Singh Primary Care Provider MD Daniel Lopes Referring Provider Unavailable MD Chiara Hoffmann Attending Provider Salazar MUNIZ Attending Unavailable NILSalazar Escobedo Attending Unavailable DO Singh Fowler Primary Care Provider MD Daniel Lopes Referring Provider Unavailable MD Chiara Hoffmann Attending Provider [phone] Singh Fowler DO Primary Care Provider Singh Fowler DO Attending Provider Mahesh Ferrari APRN Attending Provider Daniel Lopes MD Referring Provider Unavailable Chiara Hoffmann MD Attending Provider Luc Bray DO Attending Provider Singh Fowler DO Primary Care Provider Angie Metcalf CMA Attending Provider Unavaila Singh Jackson DO Attending Provider Singh Fowler DO Primary Care Provider Luc Bray DO Attending Provider Singh Fowler Primary Care Unavailable Luc Bray Attending Unavailable Luc Bray Admitting Unavailable Singh Fowler Primary Care Unavailable Luc Bray Attending Unavailable Luc Bray Admitting Unavailable Singh Fowler Primary Care Unavailable Chiara Hoffmann Attending Unavailable Chiara Hoffmann Admitting Unavailable Daniel Lopes Referring Unavailable Allergies Allergy ClassificationReported Allergen(s)Allergy TypeDate of OnsetReaction(s) Facility (2 sources)Sulfonamides (Antibiotic); Translations: [sulfa drugs]Drug allergy Eruption of skin (disorder)[facility] (7 sources)Sulfonamides (Antibiotic); Translations: [Sulfa (Sulfonamide Antibiotics)]Allergy to xsjffaqqq56-58-3623PtwgwldCsxhoozjhWilson [address] [facility] (1 source)sulfaSALAzineDrug AllergyUnkExtreme StartupsUtica Psychiatric Center HealthiN[facility] Other (18 sources)Substance with sulfonamide structure and antibacterial mechanism of action (substance)Drug allergyUnkBradley Hospital [facility]iN[facility] Other (1 source)Sulfonamides (Antibiotic)Drug allergy (disorder)[facility] (1 source)Wheat preparationDrug Gxdrezf11-06-5861Xdl [facility] Medications Current Medications MedicationDrug Class(es)DatesSig (Normalized)Sig (Original)amLODIPine 5 mg oral tablet (20 sources)Dihydropyridine Calcium Channel BlockerStart: 16-21-2210foht 1 tablet by mouth once dailyAmlodipine 5 mg tablet Active 5 MG PO Daily 90 90 3 March 24, 2025 8:51am Complies with drug therapyStart: 08-01-2024 End: 81-06-7013nkoa 1 tablet by mouth once dailyAmlodipine 5 mg tablet Discontinued 0 .ROUTE .COMPLEX 90 3 August 01, 2024 8:06am March 8:53am TAKE 1 TABLET BY MOUTH DAILYStart: 01-11-2021 End: 32-44-1690eifi 1 tablet by mouth once dailyAmlodipine 5 mg tablet Discontinued 5 MG PO Daily 90 90 3 October 05, 2023 3:05pm August 01, 2024 8:06amatorvastatin 40 mg oral tablet (20 sources)HMG-CoA Reductase InhibitorStart: 03-11-2024 End: 56-37-3565vtlf 1 tablet by mouth once dailyAtorvastatin 40 mg tablet Active 40 MG PO Daily 90 90 November 14, 2024 8:49am Complies with drug therapyStart: 12-28-2023 End: 92-65-5497nmnu 1 tablet by mouth once daily in the eveningAtorvastatin 40 mg tablet Discontinued 0 .ROUTE .COMPLEX 90 3 December 28, 2023 7:39am March 11, 2024 9:52am TAKE 1 TABLET BY MOUTH EVERY DAY IN THE EVENINGStart: 01-11-2021 End: 87-13-1613biyr 1 tablet by mouth once dailyAtorvastatin 40 mg Tablet Discontinued 40 MG PO Daily March 11, 2021 12:00am October 03, 2023 3:56pm benazepril hydrochloride 40 mg oral tablet (20 sources)Angiotensin Converting Enzyme InhibitorStart: 91-47-1722epiy 1 tablet by mouth once dailyBenazepril 40 mg tablet Active 40 MG PO Daily 90 90 March 24, 2025 12:00am Complies with drug therapyStart: 81-44-6057jana 1 tablet by mouth once dailyBenazepril 20 mg tablet Active 0 .ROUTE .COMPLEX 90 3 August 01, 2024 8:06am TAKE 1 TABLET BY MOUTH DAILY FOR 90 DAYS Complies with drug therapyStart: 07-04-2024 End: 66-77-1004mbiy 1 tablet by mouth once dailyBenazepril 20 mg tablet Discontinued 20 MG PO Daily July 04, 2024 1:00am August 01, 2024 8:06am Start: 11-03-2023 End: 02-32-6126cskl 1 tablet by mouth once dailyBenazepril 40 mg tablet Discontinued 40 MG PO Daily November 03, 2023 12:00am July 04, 2024 12:31pm Start: 01-11-2021 End: 79-18-3943ivim 1 tablet by mouth once dailyBenazepril 20 mg Tablet Discontinued 20 MG PO Daily March 11, 2021 12:00am October 03, 2023 3:56pm take 1 tablet by mouth every twenty-four hoursBenazepril HCl 40 MG 1 tablet Orally Once a day Activeglimepiride 1 mg oral tablet (2 sources)SulfonylureaStart: 03-27-2025 End: 43-57-4219axcg 1 tablet by mouth once daily at breakfastHyaluronic Yg-Bdbyijnuw-Tlid (Radiaplexrx) Gel (11 sources)Start: 92-49-6696Pxrhqwdobx Tg-Ucpxtcwqs-Qush (Radiaplexrx) Gel Active 1 APPLIC TOPICAL Three times daily May 18, 2021 9:12amStart: 05-18-2021 End: 61-35-1178Kedkuxjfvw Hz-Dkxjjhtsh-Vxgn (Radiaplexrx) Gel Discontinued 1 APPLIC TOPICAL Three times daily May 17, 2021 11:00pm December 28, 2022 8:29amStart: 05-18-2021 End: 19-71-3497Fhwccxymzl Ln-Hspstayib-Odyz (Radiaplexrx) Gel Discontinued 1 APPLIC TOPICAL Three times daily May 18, 2021 12:00am December 28, 2022 9:29amStart: 92-82-3312Qbfookmpfk Tb-Axsncuonj-Jtup (Radiaplexrx) Gel Active 1 APPLIC TOPICAL Three times daily May 17, 2021 11:00pmStart: 05-18-2021 Hyaluronic Ov-Rkkflvqhh-Fcfy (Radiaplexrx) Gel Active 1 APPLIC TOPICAL Three times daily May 18, 2021 12:00amhydroCHLOROthiazide 25 mg oral tablet (20 sources)Thiazide DiureticStart: 27-44-4902swpg 1 tablet by mouth once daily Hydrochlorothiazide 25 mg tablet Active 0 .ROUTE .COMPLEX 90 3 August 01, 2024 8:06am TAKE 1 TABLET BY MOUTH DAILY Complies with drug therapyStart: 01-11-2021 End: 42-01-8760qqvz 1 tablet by mouth once dailyHydrochlorothiazide 25 mg tablet Discontinued 25 MG PO Daily 90 90 3 October 05, 2023 3:05pm August 01, 2024 8:06amMultivitamin (Multiple Vitamin) Tablet (7 sources)Start: 22-40-9501arph 1 tablet by mouth once dailyMultivitamin (Multiple Vitamin) Tablet Active 1 TAB PO Daily December 28, 2022 12:00am Complies with drug therapyStart: 64-28-2872lffp 1 tablet by mouth once dailyMultivitamin (Multiple Vitamin) Tablet Active 1 TAB PO Daily December 27, 2022 11:00pmStart: 68-81-6858xwgo 1 tablet by mouth once dailyMultivitamin (Multiple Vitamin) Tablet Active 1 TAB PO Daily December 28, 2022 12:00amMultivitamin preparation (10 sources)take 1 tablet by mouth once dailyMulti Vitamin - 1 tablet Orally Once a day Active Completed/Discontinued Medications MedicationDrug Class(es)DatesSig (Normalized)Sig (Original)anastrozole 1 mg oral tablet (20 sources)Aromatase InhibitorStart: 07-12-2021 End: 24-43-9143xetg 1 tablet by mouth once dailyAnastrozole 1 mg Tablet Discontinued 1 MG PO Daily 13 01July 12, 2021 9:23am July 20, 2021 10:55amazithromycin 250 mg oral tablet (20 sources)Macrolide AntimicrobialStart: 08-19-2024 End: 55-13-9057Ydlwttdorzau 250 mg tablet Discontinued 250 MG PO .COMPLEX 6 5 0 August 19, 2024 1:00am November 8:31am 2 tabs on first day followed by 1 tab on days 2-5Start: 10-06-2023 End: 82-81-7243Hdcaauentkda 250 mg tablet Discontinued 250 MG PO As Directed 6 5 0 October 06, 2023 12:00am November 03, 2023 9:54amStart: 76-28-9011Tdbfaxifeakm 250 MG as directed Orally daily for 5 days Feb, Not-Taking/PRNbiotin 1 mg chewable tablet (20 sources)Start: 03-11-2021 End: 79-68-8692wckp 1 tablet by mouth once dailyBiotin 1,000 mcg Tablet,Chewable Discontinued 1000 MCG PO Daily March 11, 2021 12:00am December 28, 2022 9:29am Start: 48-49-9366zdnq 1 tablet by mouth once dailybiotin 1000 mcg oral tablet 1,000 mcg = 1 tab(s), Oral, Daily, # 30 tab(s), Refills(s) 0 Start Date: 01/11/21 Status: OrderedBiotin Not-Taking/PRNBiotin Not-TakingBiotin Activeibuprofen 800 mg oral tablet (10 sources)Nonsteroidal Anti-inflammatory DrugStart: 01-13-2022 End: 79-53-0652tnjt 1 tablet by mouth every six hours as needed for pain Ibuprofen 800 mg Tablet Discontinued 800 MG PO Q6H as needed for Pain January 13, 2022 12:00am December 28, 2022 9:29amletrozole 2.5 mg oral tablet (20 sources)Aromatase InhibitorStart: 07-20-2021 End: 04-53-3991wopx 1 tablet by mouth once dailyLetrozole 2.5 mg Tablet Discontinued 2.5 MG PO Daily 90 3 December 28, 2022 10:56am October 04, 2023 1 0:05amlinagliptin 5 mg oral tablet (5 sources)Dipeptidyl Peptidase 4 InhibitorStart: 11-13-2023 End: 55-35-7002swwq 1 tablet by mouth once dailyLinagliptin (Tradjenta) 5 mg tablet Discontinued 5 MG PO Daily 30 30 November 13, 2023 12:00am November 14, 2023 8:37am24 hr metFORMIN hydrochloride 500 mg extended release oral tablet (17 sources)BiguanideStart: 03-11-2021 End: 67-29-8277ztas 1 tablet by mouth twice dailyMetformin 500 mg Tablet Extended Release 24 Hr Discontinued 500 MG PO Twice daily March 11, 2021 12:00am December 28, 2022 9:29amStart: 45-71-5817wanw 1 tablet by mouth twice dailymetformin 500 mg oral tablet 500 mg = 1 tab(s), Oral, BID, # 60 tab(s), Refills(s) 0 Start Date: 01/11/21 Status: Orderedtake 1 tablet by mouth every twenty-four hoursmetFORMIN HCl 500 MG 1 tablet with a meal Orally Once a day Activemometasone furoate 1 mg/ml topical cream (11 sources)CorticosteroidStart: 05-18-2021 End: 65-44-3972Okbqqrpavx 0.1 % Cream Discontinued 1 APPLIC TOPICAL Twice daily 60 2 May 18, 2021 12:00am December 28, 2022 9:29amSemaglutide (5 sources)Start: 11-09-2023 End: 68-32-7917Aluxbwxxkke (Ozempic) 0.25 mg or 0.5 mg (2 mg/3 mL) pen injector Discontinued 0.25 MG SUBCUT every week 3 28 0 November 09, 2023 12:00am November 13, 2023 1:26pm for 4 weeksStart: 11-09-2023 End: 73-09-9276Egtrgsnpsrt (Ozempic) 0.25 mg or 0.5 mg (2 mg/3 mL) pen injector Discontinued 0.25 MG SUBCUT every week 3 November 09, 2023 12:00am November 13, 2023 1:26pm for 4 weeksSITagliptin 50 mg oral tablet (5 sources)Dipeptidyl Peptidase 4 InhibitorStart: 11-14-2023 End: 87-35-5315msiw 1 tablet by mouth once dailySitagliptin Phosphate (Januvia) 50 mg tablet Discontinued 50 MG PO Daily 90 90 1 November 14, 2023 12:00am January 04, 2024 9:26amvitamin e 450 mg oral capsule (20 sources)Start: 07-20-2021 End: 19-86-9851ampw 1 capsule by mouth once dailyVitamin E 1,000 unit Capsule Discontinued 1000 UNIT PO Daily July 20, 2021 1:00am December 28, 2022 9:29am Start: 37-97-5997melnuzb E 400 International_Unit, Oral, Daily, Refills(s) 0 Start Date: 01/11/21 Status: OrderedVitamin E Not-Taking/PRNVitamin E Not-Taking Vitamin E Activezinc oxide 0.1 mg/mg topical ointment (11 sources)Start: 05-31-2021 End: 79-98-7752Nfxs Oxide 10 % Ointment Discontinued 1 APPLIC TOPICAL Three times daily 60 2 May 31, 2021 1:00am December 28, 2022 9:29am Adenocarcinoma of right breast Malignant neoplasm of unspecified site of right female breast Problems Active Problems Problem ClassificationProblemDateDocumented DateEpisodic/ChronicAcute bronchitis (11 sources)Acute bronchitis; Translations: [Acute bronchitis due to other specified organisms]EpisodicCancer of breast (20 sources)Infiltrating lobular carcinoma of breast; Translations: [Malignant neoplasm of upper-inner quadrantof female breast]Onset: [id number] ChronicDiabetes mellitus with complications (20 sources)Type 2 diabetes mellitus; Translations: [Type 2 diabetes mellitus with hyperglycemia]ChronicDiabetes mellitus without complication (3 sources)Type 2 diabetes mellitus without complication; Translations: [Type 2 diabetes mellitus without complications]77-44-3113YzjeeyrFjlzpxro mellitus without complication (18 sources)Impaired fasting glycemia; Translations: [Impaired fasting glucose] EpisodicDisorders of lipid metabolism (20 sources)Hypercholesterolemia; Translations: [Hyperlipidemia]02-15-2021 ChronicEssential hypertension (20 sources)Hypertensive disorder; Translations: [Essential hypertension] 05-04-6420ZtkaipeYveiyjm (18 sources)Tinea corporis; Translations: [Tinea corporis]EpisodicOsteoarthritis (20 sources)Arthritis of right knee; Translations: [Unilateral primary osteoarthritis, right knee]Onset: 03-17-2022 Resolved: 10-20-3561EkhvaefZutmr acquired deformities (18 sources)Joint contracture of the ankle and/or foot; Translations: [Contracture, left ankle]ChronicOther acquired deformities (5 sources)Contracture of joint of left ankle; Translations: [Contracture, left ankle]22-94-5785IonpbhiLyyao aftercare (4 sources)Drug therapy finding; Translations: [Encounter for therapeutic drug level monitoring]56-09-2870GvieeohgShndx aftercare (4 sources)Encounter for therapeutic drug level monitoring; Translations: [Encounter for therapeutic drug monitoring]60-75-5457EjtppabuTbmix aftercare (11 sources)Long-term current use of drug therapy; Translations: [Encounter for therapeutic drug level monitoring]80-76-6393JeuiyimeMosqa connective tissue disease (1 source)Plantar ffotifzsv64-06-2649KcxzwllmHgtca connective tissue disease (17 sources)Plantar fascial fibromatosis; Translations: [Plantar fascial fibromatosis]EpisodicOther connective tissue disease (1 source)Plantar fascial fibromatosis; Translations: [Plantar fasciitis, left] EpisodicOther diseases of veins and lymphatics (19 sources)Peripheral venous insufficiency; Translations: [Venous insufficiency (chronic) (peripheral)]67-80-4467XcmklwrlFngrj diseases of veins and lymphatics (3 sources)Venous insufficiency (chronic) (peripheral); Translations: [Venous (peripheral) insufficiency, unspecified]EpisodicOther lower respiratory disease (17 sources)Solitary nodule of lung; Translations: [Solitary pulmonary nodule] EpisodicOther lower respiratory disease (7 sources)Solitary pulmonary nodule; Translations: [Solitary pulmonary nodule] Onset: 17-34-0873ZvqvvrgsRnzff lower respiratory disease (13 sources)Nodule of lung; Translations: [Solitary pulmonary nodule]12-28-2022 EpisodicComment on above:CT: 6-10mm RUL, RML T: stable, decreasing GGO T: calcified pulmonary nodules, hhmxtny20ch, T: calcified and noncalcified nodules, stable, 11/2023Other non-traumatic joint disorders (1 source)Disorder of ankle sejle45-68-4188ZevmwtzkWmxha non-traumatic joint disorders (13 sources)Pain in right knee; Translations: [Right knee pain]Onset: 02-26-2022 Resolved: 64-18-3956NuiijcmrObkbr non-traumatic joint disorders (2 sources)Knee painEpisodicOther nutritional; endocrine; and metabolic disorders (20 sources)Obesity; Translations: [Obesity, unspecified]07-82-4689ZdxuqleYogdb nutritional; endocrine; and metabolic disorders (10 sources)Body mass index 30+ - obesity; Translations: [Body mass index (BMI) 31.0-31.9, adult]ChronicOther nutritional; endocrine; and metabolic disorders (10 sources)Obesity caused by energy imbalance; Translations: [Other obesity due to excess calories]ChronicOther nutritional; endocrine; and metabolic disorders (2 sources)Other obesity due to excess caloriesChronicOther nutritional; endocrine; and metabolic disorders (2 sources)Body mass index (BMI) 31.0-31.9, adultChronicOther nutritional; endocrine; and metabolic disorders (2 sources)Obesity, unspecified; Translations: [Obesity, unspecified]11-14-2024 ChronicOther screening for suspected conditions (not mental disorders or infectious disease) (20 sources)Patient encounter status; Translations: [Encounter for screening for osteoporosis]Onset: 260887-34-6691BriboauvDcsun upper respiratory disease (1 source)Seasonal vdrdhco02-35-9258NznmkhlRqrhg upper respiratory disease (18 sources)Allergic rhinitis due to pollen; Translations: [Allergic rhinitis due to pollen]ChronicOther upper respiratory infections (2 sources)Acute maxillary sinusitis, unspecified; Translations: [Acute sinusitis, unspecified]EpisodicResidual codes; unclassified (2 sources)Estrogen receptor positive status [ER+]EpisodicSpondylosis; intervertebral disc disorders; other back problems (20 sources)Lumbosacral spondylosis with radiculopathy; Translations: [Other spondylosis with radiculopathy, lumbosacral region]24-91-7827IcvlbrhKzfuahmxihqa (1 source)Adenocarcinoma of hzkpgu88-34-4833Ozdkvrlyrzhr (2 sources)M25.561 - Pain in right knee Past or Other Problems Problem ClassificationProblemDateDocumented DateEpisodic/ChronicE Codes: Natural/environment (2 sources)Exposure to other specified factors, initial encounter; Translations: [Other and unspecified overexertion or strenuous movements or postures, initial encounter]Onset: 41-72-6910AtwgdlbrElolv aftercare (1 source)Other correction (current) drug therapy; Translations: [OTH INTERMEDIATE CURRENT DRUG THERAPY]Onset: 26-94-1793GjxoyfsaByoaq aftercare (1 source)supervisor intermediates (current) use of oral hypoglycemic drugs; Translations: [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 USE ORAL HYPOGLYCEMIC DX]Onset: 00-11-6880QawaswbsOeeav connective tissue disease (3 sources)Pain in right finger(s); Translations: [PAIN IN RIGHT FINGERS]Onset: 78-91-5277WwfvtddhGnsqbzr and strains (2 sources)Strain of other muscle(s) and tendon(s) at lower leg level, right leg, initial encounter; Translations: [Unspecified sprain of right thumb, initial encounter]Onset: 26-93-0569XilljcjoOwgnmxwalyvj (1 source)Encounter by telehealth for suspected COVID-19 Z20.822 Results Test NameValueInterpretationReference RangeFacilityBasophils Auto (Bld) [#/Vol] Ordered By: Singh Fowler on 01-93-3875Uuynlgnoq (Bld) [#/Vol]0.1 10 3/uL0.0-0.1 [facility] HospitalBasophils/100 WBC Auto (Bld)Ordered By: Singh Fowler on 12-26-0312Dsrntltns/100 WBC (Bld)0.7 %0.2-2.0[facility] HospitalCholesterol in LDL Calc [Mass/Vol]Ordered By: Singh Fowler on 15-24-6853Zqztiscfstp in LDL [Mass/Vol]49.0 mg/dLOhiohealth Hardin Memorial HospitalComment on above:<100 mg/dl GCVLSIO348-058 mg/dl NEAR OR ABOVE CEPPGIO242- 159 mg/dl BORDERLINE ZUZJ011-452 mg/dl HIGH>190 mg/dl VERY HIGHCholesterol in VLDL Calc [Mass/Vol]Ordered By: Singh Fowler on 95-71-0401Ptwcnfyqnwl in VLDL [Mass/Vol]54.8 mg/dLOhiohealth Hardin Memorial HospitalEosinophils/100 WBC Auto (Bld)Ordered By: Singh Fowler on 36-83-2585Giwfvyomplo/100 WBC (Bld)2.8 % 0.9-7.0[facility] HospitalErythrocyte distribution width Auto (RBC) [Ratio]Ordered By: Singh Fowler on 78-09-1804Rsbwavpofba distribution width (RBC) [Ratio]12.4 %11.0-15.0[facility] HospitalGlobulin Calc (S) [Mass/Vol]Ordered By: Singh Fowler on 77-59-2388Mfhcnmsj (S) [Mass/Vol]3.5 g/dLOhiohealth Hardin Memorial HospitalGlomerular filtration rate (GFR) estimation in non- AmericanOrdered By: Singh Fowler on 03-24-2025 GFR/1.73 sq M.predicted among non-blacks MDRD (S/P/Bld) [Vol rate/Area] mL/min/{1.73_m2}>=60 mL/min/1.73m 2FSycamore Medical CenterGlucose mean value [Mass/volume] in Blood Estimated from glycated hemoglobinOrdered By: Singh Fowler on 58-82-8728Dggyckp glucose Estimated from glycated hemoglobin (Bld) [Mass/Vol]154 mg/dLOhiohealth Hardin Memorial HospitalHematocrit Auto (Bld) [Volume fraction]Ordered By: Singh Fowler on 54-06-2691Imzsqakegm (Bld) [Volume fraction]44.7 %36.0-48.0[facility] HospitalHemoglobin A1c percentageOrdered By: Singh Fowler on 89-96-4050CnX9d (Bld) [Mass fraction]7.0 %High4.5-6.2FSycamore Medical CenterComment on above:ADA RECOMMENDED LIMIT 4.0 - 6.0ADA THERAPEUTIC TARGET < 7.0ACTION SUGGESTED> 7.0Hemoglobin [Mass/volume] in BloodOrdered By: Singh Yudi on 89-12-2948Ffnyidoiyl (Bld) [Mass/Vol]15.1 g/dL12.0-16.0[facility] HospitalLaboratory - Chemistry and Chemistry - challengeOrdered By: Singh Fowler on 03-24-2025 Albumin [Mass/Vol]4.0 g/dL3.4-5.0[facility] HospitalALP [Catalytic activity/Vol]95 U/U00-157SgavqfqeuOhiohealth Hardin Memorial HospitalALT [Catalytic activity/Vol]36 U/H70-67SrzypwvtwOhiohealth Hardin Memorial HospitalAST [Catalytic activity/Vol]15 U/T72-85YgyjwyctrOhiohealth Hardin Memorial HospitalBilirubin [Mass/Vol]0.2 mg/dL0.2-1.0[facility] HospitalCalcium [Mass/Vol]8.8 mg/dL 8.5-10.1FSycamore Medical CenterChloride [Moles/Vol]106 mmol/L98-107 [facility] HospitalCholesterol [Mass/Vol]136 mg/dL<=200[facility] HospitalCholesterol in HDL [Mass/Vol]33 mg/sPMjj86-86LgysmuukhOhiohealth Hardin Memorial HospitalComment on above:> or =60 mg/dl - LOW CARDIOVASCULAR RISK<40 mg/dl - HIGH CARDIOVASCULAR RISKCO2 [Moles/Vol]26.8 mmol/L21.0-32.0 [facility] HospitalCreatinine [Mass/Vol]0.52 mg/dLLow0.55-1.02 [facility] HospitalGFR/1.73 sq M.predicted MDRD (S/P/Bld) [Vol rate/Area]mL/min/{1.73_m2}>=60 mL/min/1.73m 2FSycamore Medical Center Glucose [Mass/Vol]158 mg/iDHzoa68-684OyfbhcgniOhiohealth Hardin Memorial HospitalPotassium [Moles/Vol]4.1 mmol/L3.5-5.1FSycamore Medical CenterProtein [Mass/Vol] 7.5 g/dL6.4-8.2FParma Community General Hospitalodium [Moles/Vol]144 mmol/L 136-145[facility] HospitalTriglyceride [Mass/Vol]274 mg/dLHigh <=150[facility] HospitalUrea nitrogen [Mass/Vol]20.0 mg/dLHigh 7.0-18.0[facility] HospitalUrea nitrogen/Creatinine [Mass ratio] 38.5 mg/mgOhiohealth Hardin Memorial HospitalLaboratory - Hematology and Cell countsOrdered By: Singh Fowler on 11-18-7059Smzaoeqn granulocytes/100 WBC (Bld) 0.4 %0.0-0.5FSycamore Medical CenterLeukocytes [#/volume] corrected for nucleated erythrocytes in Blood by Automated counOrdered By: Singh Fowler on 99-97-3429ISQ corrected for nucl RBC Auto (Bld) [#/Vol]7.5 10 3/uL4.0-11.0 [facility] HospitalLymphocytes Auto (Bld) [#/Vol]Ordered By: Singh Fowler on 25-11-8138Gidzlnendul (Bld) [#/Vol]1.8 10 3/uL1.2-3.8[facility] HospitalLymphocytes/100 WBC Auto (Bld)Ordered By: Singh Fowler on 28-70-3613Zzlruithcgb/100 WBC (Bld)23.4 %20.5-60.0[facility] Auto (RBC) [Entitic mass]Ordered By: Singh Fowler on 01-71-4244RTR (RBC) [Entitic mass]30.8 pg26.7-34.0[facility] CenterHC Auto (RBC) [Mass/Vol]Ordered By: Singh Fowler on 89-55-5984TDTE (RBC) [Mass/Vol]33.8 g/dL29.9-35.2FVeterans Health AdministrationV Auto (RBC) [Entitic vol] Ordered By: Singh Fowler on 31-08-2562DBR (RBC) [Entitic vol]91.0 fL81.0-99.0 [facility] HospitalMicroalbumin [Mass/volume] in UrineOrdered By: Singh Fowler on 76-99-2879Utcbfdp DL <= 20 mg/L (U) [Mass/Vol]1.3 mg/dL<=30.0 [facility] HospitalMonocytes Auto (Bld) [#/Vol]Ordered By: Singh Fowler on 98-81-5278Mfbjtyqeb (Bld) [#/Vol]0.7 10 3/uL0.3-0.8[facility] HospitalMonocytes/100 WBC Auto (Bld)Ordered By: Singh Fowler on 67-44-6814Qkarqvhmt/100 WBC (Bld)9.5 %1.7-12.0[facility] Neutrophils Auto (Bld) [#/Vol]Ordered By: Singh Fowler on 19-33-7208Rlgsaszflan (Bld) [#/Vol]4.7 10 3/uL1.4-6.5FSycamore Medical CenterNeutrophils/100 WBC Auto (Bld)Ordered By: Singh Fowler on 35-46-9303Hrqbrlqdicz/100 WBC (Bld) 63.2 %43.0-75.0[facility] HospitalNo Panel InformationOrdered By: Singh Fowler on 35-77-8548Mgfbdlzthdx # (Auto)0.2 10 3/uL0.0-0.7FSycamore Medical CenterImmature Granulocyte # (Auto)0.03 10 3/uL0.00-0.03 [facility] HospitalUrine Random Igpdryvygi487.82 mg/dL20.00-300.00 [facility] HospitalPlatelet mean volume Auto (Bld) [Entitic vol] Ordered By: Singh Fowler on 66-22-2491Ulmppxpr mean volume (Bld) [Entitic vol] 11.1 fL9.5-13.5FSycamore Medical CenterPlatelets Auto (Bld) [#/Vol] Ordered By: Singh Fowler on 94-62-3857Dazqmkbcl (Bld) [#/Vol]176 10 3/pY815-334 [facility] HospitalRBC Auto (Bld) [#/Vol]Ordered By: Singh Fowler on 90-31-5279CGX (Bld) [#/Vol]4.91 10 6/uL4.20-5.40St. Elizabeth Hospitalerum or plasma albumin/globulin mass ratioOrdered By: Singh Fowler on 97-98-4545Btxspqe/Globulin [Mass ratio]1.1 {ratio}St. Elizabeth Hospitalerum or plasma anion gap determinationOrdered By: Singh Fowler on 73-03-3974Uocwz gap [Moles/Vol]15.3 mmol/LFParma Community General Hospitalerum or plasma total cholesterol/high density lipoprotein (HDL) cholesterol mass rat Ordered By: Singh Fowler on 51-88-9665Lsjvltpjobu.total/Cholesterol in HDL [Mass ratio]4.1 {ratio}[facility] HospitalComment on above:3.3 - 4.4 LOW RISK4.4 - 7.1 AVERAGE RISK7.1 - 11.0 MODERATE RISK>11.0 HIGH RISKUrine microalbumin/creatinine mass ratioOrdered By: Singh Fowler on 03-24-2025 Albumin/Creatinine DL <= 20 mg/L (U) [Mass ratio]11.8 mg/g0.0-29.9[facility] HospitalComment on above:NO MICROALBUMINURIA 0-29 MG/GCLINICAL MICROALBUMINURIA 30-300 MG/GMACROALBUMINURIA >300 MG/GX-ray reportOrdered By: Chris Ch on 44-69-9760Cmvuz reportMARTINS FERRY [facility] [address] [place] [address] XRay Report Signed Patient: Renuka Caceres MR#: [id number] : 1960 Acct:[id number] Age/Sex: 64 / F ADM Date: 5 Loc: [facility] Room: Type: [facility] Attending Dr: Luc Bray DO Copies to: [...] Jr., D.O. 01/08/2025 9:45 AM Dictation Location: RADIO-PC-23 Transcribed By: JACKIE 01/08/2545 Dictated By: Chris Ch Jr, DO 01/08/2544 Signed By: 01/08/25 09Shalini [facility] HospitalXR knee RT 4V*on 52-70-0558QU knee RT 4V* [facility] [address] [place] [address] XRay Report Signed Patient: Renuka Caceres MR#: [id number] : 1960 Acct:[id number] Age/Sex: 64 / F ADM Date: 01/08/25 Loc: [facility] Room: Type: [facility] Attending Dr: Luc Bray DO Copies to: [...] Jr., D.O. 01/08/2025 9:45 AM Dictation Location: RADIO-PC-23 Transcribed By: JACKIE 01/08/2545 Dictated By: Chris Ch Jr, DO 01/08/2544 Signed By: 01/08/25 0945[facility] Physician GroupMM screening mammo BI w/Sha 68-26-4538YK screening mammo BI w/[facility] [address] [place], [place] [id number] Mammography Report Signed Patient: Renuka Caceres MR#: [id number] : 1960 Acct:[id number] Age/Sex: 64 / F Adm Date: 12/26/24 [facility]: [facility]T [facility]: Chiara Hoffmann MD Ordering Provider: Chiara Hoffmann MD Date of Service: 12/19/24 Procedure(s): MM screening mammo BI w/CAD Accession Number(s): ([id number]) MM/MM screening mammo BI w/CAD: C50.211 - [...] Condon M.D. 12/19/2024 11:06 AM Dictation Location: DWS01 Dictated By: Truman Condon II, MD 12/19/24 1102 Signed By: 12/19/24 1106[facility] Colonoscopyon 01-13-2023 Outside [id number]#1.00CD:127[facility] HospitalReminderson 12-91-9667Xtgzyqyap From: Palmira Mei LPN To: N - Clinical; Sent: 01/12/2023 14:47:17 EDT Show up: 12/11/2032 07:00:00 EDT Subject: colonoscopy recall Due Date/Time: 01/11/2033 07:00:00 EDT Reminder/Recall Patient due for screening colonoscopy 01/11/2033.[facility] NorthConsultation Noteon 94-81-4016Ccmikthsejuc Note [id number]#1.00CD:[address] [place], [place] [address]Pre-Certification Formon 46-77-7656Lxg-Certification Form [id number]#1.00CD:[address] [place], [place] [address]Consent for Procedure/Surgeryon 68-58-4442Uwrcces for Procedure/Surgery [id number]#1.00CD:[address] [place], [place] [address]Facesheeton 95-90-4833Dgxyzgukt [id number]#1.00CD:[address] [place], [place] [address]Ambulatory Visit Summaryon 26-36-1925Slrajmidny Visit Summary RENUKA CACERES :1960 Visit Date:12/02/2022 [...] ultrasound (US) guidance, Lumpectomy ofright breast, Tonsillectomy. Discharge Vitals Heart Rate (Peripheral) [...] Plantar fasciitis Syndesmotic disruption of left ankle [facility] NorthCT CHEST WO CONon 56-26-2343PP CHEST WO CONEXAMINATION: CT CHEST WO CON HISTORY: Solitary nodule of lung [...] Electronically authenticated by: PABLO MORRIS Date: 2022-11-28 09:[address] [place], [place] [address]CT CHEST WO STinser Other mg [facility] DIAGNOSTIC 3D OMKAR CADon 63-35-6057AW MAMM DIAGNOSTIC 3D OMKAR CADPatient: RENUKA CACERES Exam Date: 11/28/2022 : 1960 Gender:F Ordering : MRS[employer] GIOVANNA [employer]TON [employer] Admission #: [id number] Family : DR SINGH FOWLER D.O. Order #: [id number] CLICK HERE TO VIEW EXAM RADIOLOGY REPORT [...] colon/kidney cancer at age 38. LOCATION: [facility] BREAST COMPOSITION: Heterogeneously dense,which may obscure [...] by: Pablo Morris M.D. on 11/28/2022 at 09:41NormShelby Memorial HospitalPhysician Referralon 05-61-1312Xqrlvkjya Referral [id number]#1.00CD:[address] [place], [place] [address]Physician Referralon 69-24-0611Jthyukcrd Referral [id number]#1.00CD:[address] [place], [place] [address]CBC AUTO DIFFon 93-01-1047VVRV #0.0 103/ulNormal0.0-0.1The [facility] HospitalComment on above:Performed By: #### CBC ####[facility] Kroarqvxna[address] [place], [place] [address]Dr.Marysol ChangBasophils/100 WBC (Bld)0.2 %Normal0.2-2.0The [facility] HospitalComment on above:Performed By: #### CBC ####[facility] Wejbhrvrqw[address] [place], [place] [address]Dr.Piedadlan ChangEO #0.2 103/ulNormal0.0-0.7The [facility] HospitalComment on above:Performed By: #### CBC ####[facility] Wtxadvwwgb415[address] [place], [place] [address]Dr.Marysol ChangEosinophils/100 WBC (Bld)1.3 %Normal 0.9-7.0The [facility] HospitalComment on above:Performed By: #### CBC ####[facility] Tyuxrlcdrt[address] [place], [place] [address]Dr.Marysol Peace Erythrocyte distribution width (RBC) [Ratio]13.0 %Ofoxya84.0-15.0The [facility] HospitalComment on above:Performed By: #### CBC ####[facility] Ibfwjysqib[address] [place], [place] [address]Dr.Marysol PeaceHematocrit (Bld) [Volume fraction]46.6 %Kjosjt64.0-48.0The Zak HospitalComment on above:Performed By: #### CBC ####[facility] [address] [place] [address]Dr.Piedadbre KobiHemoglobin (Bld) [Mass/Vol]15.7 g/dL Vnywky84.0-16.0The [facility] HospitalComment on above:Performed By: #### CBC ####[facility] Xoqxwltzux75[address] [place], [place] [address]Dr. Marysol ChangIG #0.04 10e3/ulCritically high0.00-0.03The [facility] HospitalComment on above:Performed By: #### CBC ####[facility] Aorgsltiji[address] [place], [place] [address]Dr.Marysol ChangIG %0.3 %Normal0.0-0.5The [facility] HospitalComment on above:Performed By: #### CBC ####[facility] Bsxntretcm639[address] [place], [place] [address]Dr.Marysol PeaceLYMPH #0.5 103/ulCritically low1.2-3.8The [facility] HospitalComment on above:Performed By: #### CBC ####[facility] Ftswyalyzv[address] [place], [place] [address]Dr.Marysol PeaceLymphocytes/100 WBC (Bld)3.8 %Critically low20.5-60.0The [facility] HospitalComment on above:Performed By: #### CBC ####[facility] Fwglflhqmp9[address] [place], [place] [address]Dr.Marysol PeaceMANUAL DIFF REQ NONormalThe [facility] Memorial HospitalComment on above:Performed By: #### CBC ####[facility] Xzngfpsjdz[address] [place], [place] [address]Dr. Marysol PeaceMCH (RBC) [Entitic mass]29.2 etZmdejx07.7-34.0[facility] Comment on above:Performed By: #### CBC ####[facility] Pbteqxvrjk7834[address] [place], [place] [address]Dr.Marysol PeaceMCHC (RBC) [Mass/Vol]33.7 g/dL Zcscmb25.9-35.2The [facility] HospitalComment on above:Performed By: #### CBC ####[facility] [address] [place] [address]Dr. Piedadbre PeaceMCV (RBC) [Entitic vol]86.6 lAHgxoku51.0-99.0[facility] Comment on above:Performed By: #### CBC ####[facility] Ekfxfmcakb[address] [place], [place] [address]Dr.Marysol PeaceMONO #0.3 103/ulNormal0.3-0.8 [facility] HospitalComment on above:Performed By: #### CBC ####[facility] Jenztcfarj[address] [place], [place] [address]Dr.Marysol Peace Monocytes/100 WBC (Bld)2.8 %Normal1.7-12.0[facility] HospitalComment on above: Performed By: #### CBC ####[facility] Etblcqsjsf56[address] [place], [place] [address]Dr.Marysol PeaceNEUT #10.7 103/ulCritically high1.4-6.5 [facility] HospitalComment on above:Performed By: #### CBC ####[facility] Ttudggirmy[address] [place], [place] [address]Dr.Marysol Peace Neutrophils/100 WBC (Bld)91.6 %Critically high43.0-75.0[facility] Comment on above:Performed By: #### CBC ####[facility] Phvsvxvgfc40[address] [place], [place] [address]Dr.Marysol PeacePlatelet mean volume (Bld) [Entitic vol]11.0 fLNormal9.5-13.5The [facility] HospitalComment on above: Performed By: #### CBC ####[facility] Xccbuavdur[address] [place], [place] [address]Dr.Marysol PeacePLT192 103/qcOcdetb149-804Tjb [facility] HospitalComment on above:Performed By: #### CBC ####[facility] Jykekrgoii134[address] [place], [place] [address]DrMino PeaceRBC5.38 106/ul Normal4.20-5.40The [facility] on above:Performed By: #### CBC ####[facility] [address] [place] [address]Dr. Marysol LrhakSXQ77.7 103/ulCritically high4.0-11.0The [facility] on above:Performed By: #### CBC ####[facility] Ywfcitlxlv6[address] [place], [place] [address]Dr.Marysol ChangGLYCOHEMOGLOBIN A1Con 31-58-3577PEG RECOMMENDATIONSEE [facility] CenterComselect [facility] on above:Result Comment: ADA RECOMMENDED LIMIT 4.0 - 6.0 ADA THERAPEUTIC TARGET < 7.0 ACTION SUGGESTED > 7.0Performed By: #### A1C ####[facility] S[address]pbhoeln[address] [place], [place] [address]Dr.Marysol ChangGlucose [Mass/Vol]154 mg/dL NormalThe [facility] on above:Performed By: #### A1C ####[facility] Plszgwebtr[address] [place], [place] [address]Dr.Marysol SyulvXzM2r (Bld) [Mass fraction]7.0 %Critically high4.5-6.2The [facility] on above:Performed By: #### A1C ####[facility] Yzkkbgcozb[address] [place], [place] [address]Dr.Marysol ChangLIPID PROFILEon 72-80-0645DTKF-HDL RATIO NORMSEE [facility] CenterComselect [facility] on above:Result Comment: 3.3 - 4.4 LOW RISK 4.4 - 7.1 AVERAGE RISK 7.1 - 11.0 MODERATE RISK >11.0 HIGH RISK Performed By: #### LIPID, CMP, TSH ####[facility] Sjswfbhxdr[address] [place], [place] [address]Dr. Marysol ChangCholesterol [Mass/Vol]136 mg/dL Normal<=200The [facility] on above:Performed By: #### LIPID, CMP, TSH ####[facility] Iiknusrxhk809[address] [place], [place] [address]Dr. Marysol ChangCholesterol in HDL [Mass/Vol]36 mg/dLCritically eiy52-04Irf [facility] HospitalComment on above:Performed By: #### LIPID, CMP, TSH ####[facility] [address] [place] [address]Dr. Marysol Peace Cholesterol in LDL [Mass/Vol]66.2 mg/dLPike Community HospitalComment on above:Performed By: #### LIPID, CMP, TSH ####[facility] [address]jixc[address] [place] [address]Dr. Marysol PeaceCholesterol.total/Cholesterol in HDL [Mass ratio]3.8 {ratio}NormalThe [facility] HospitalComselect [facility] on above: Performed By: #### LIPID, CMP, TSH ####[facility] [address] [place] [address]Dr. Yilan ChangHDL NORMAL> or = 60 mg/dl - LOW CARDIOVASCULAR RISK <40 mg/dl - HIGH CARDIOVASCULAR RISKNoVeterans Health AdministrationComment on above:Performed By: #### LIPID, CMP, TSH ####[facility] Hvynerapfe[address] [place], [place] [address]Dr. Yilan ChangLDL CALC NORMALSEE BELOWNoVeterans Health AdministrationComment on above:Result Comment: <100 mg/dl OPTIMAL 100 - 129 mg/dl NEAR OR ABOVE OPTIMAL 130 - 159 mg/dl BORDERLINE HIGH 160 - 189 mg/dl HIGH >190 mg/dl VERY HIGHPerformed By: #### LIPID, CMP, TSH ####[facility] Inbniwvtym[address] [place], [place] [address]Dr. Yilan ChangTriglyceride [Mass/Vol]169 mg/dLCritically high<=150The [facility] HospitalComselect [facility] on above:Performed By: #### LIPID, CMP, TSH ####[facility] [address]slyfqdtf[address] [place], [place] [address]Dr. Yilan ChangVLDL CALC33.8 mg/dLPike Community HospitalComment on above: Performed By: #### LIPID, CMP, TSH ####[facility] [address] [place] [address]Dr. Yilan ChangPROF 14(COMP METB)on 09-27-2022 Albumin [Mass/Vol]3.9 g/dLNormal3.4-5.0The [facility] HospitalComment on above: Performed By: #### LIPID, CMP, TSH ####[facility] [address] [place] [address]Dr. Yilan ChangAlbumin/Globulin [Mass ratio]1.1 {ratio}NormalThe [facility] HospitalComment on above:Performed By: #### LIPID, CMP, TSH ####[facility] [address]xe[address] [place] [address]Dr. Yilan ChangALP [Catalytic activity/Vol]92 U/ZZypuct67-539Woe [facility] HospitalComment on above:Performed By: #### LIPID, CMP, TSH ####[facility] [address]rb[address] [place] [address]Dr. Yilan ChangALT [Catalytic activity/Vol]29 U/FKudyfd27-48Uwf [facility] HospitalComment on above: Performed By: #### LIPID, CMP, TSH ####[facility] [address]xnjtg[address] [place] [address]Dr. Yilan ChangAnion gap [Moles/Vol]12.2 mmol/L NormalThe Community Memorial HospitalComment on above:Performed By: #### LIPID, CMP, TSH ####[facility] [address]ivui[address] [place] [address]Dr. Yilan ChangAST [Catalytic activity/Vol]20 U/HKcaaoy06-44Hsv [facility] Comment on above:Performed By: #### LIPID, CMP, TSH ####[facility] [address]bfbur[address] [place] [address]Dr. Yilan ChangBilirubin [Mass/Vol]0.5 mg/dLNormal0.2-1.0The [facility] HospitalComment on above:Performed By: #### LIPID, CMP, TSH ####[facility] [address]db[address] [place] [address]Dr. Yilan ChangCalcium [Mass/Vol]8.9 mg/dLNormal 8.5-10.1The [facility]debackville HospitalComment on above:Performed By: #### LIPID, CMP, TSH ####[facility] [address]pi[address] [place] [address]Dr. Yilan ChangChloride [Moles/Vol]102 mmol/OUdnamo33-907Cos [facility] Comment on above:Performed By: #### LIPID, CMP, TSH ####[facility] [address] [place] [address]Dr. Yilan ChangCO2 [Moles/Vol]25.6 mmol/WFglquo37.0-32.0The [facility] HospitalComment on above: Performed By: #### LIPID, CMP, TSH ####[facility] Lfxpgherxb[address] [place], [place] [address]Dr. Yilan ChangCreatinine [Mass/Vol]0.61 mg/dL Normal0.55-1.02The [facility] HospitalComment on above:Performed By: #### LIPID, CMP, TSH ####[facility] Pwukvvtvps[address] [place], [place] [address]Dr. Yilan ChangEGFR-AF ISRAELI>60Normal>=60The [facility] HospitalComment on above:Performed By: #### LIPID, CMP, TSH ####[facility] Kxsxylmshq[address] [place], [place] [address]Dr. Yilan ChangEGFR-NON AF ISRAELI>60Normal >=60The [facility] HospitalComment on above:Performed By: #### LIPID, CMP, TSH ####[facility] Mfukaxazlj6[address] [place], [place] [address]Dr. Yilan ChangGlobulin (S) [Mass/Vol]3.4 g/dLNormalThe [facility] HospitalComment on above:Performed By: #### LIPID, CMP, TSH ####[facility] Rhtukxtglk[address] [place], [place] [address]Dr. Yilan ChangGlucose [Mass/Vol]149 mg/dL Critically szrj39-857Swi [facility] HospitalComment on above:Performed By: #### LIPID, CMP, TSH ####[facility] M[address]xbzewrqd[address] [place], [place] [address]Dr. Yilan ChangPotassium [Moles/Vol]3.8 mmol/LNormal3.5-5.1The [facility] HospitalComment on above:Performed By: #### LIPID, CMP, TSH ####[facility] [address]rhju[address] [place] [address]Dr. Yilan ChangProtein [Mass/Vol]7.3 g/dLNormal6.4-8.2The [facility] HospitalComment on above:Performed By: #### LIPID, CMP, TSH ####[facility] [address]ass[address] [place] [address]Dr. Yilan ChangSodium [Moles/Vol]136 mmol/L Fqfvnb595-905Rhj [facility] HospitalComselect [facility] on above:Performed By: #### LIPID, CMP, TSH ####[facility] [address]aiuf[address] [place] [address]Dr. Piedadlan ChangUrea nitrogen [Mass/Vol]26.0 mg/dLCritically high7.0-18.0The [facility] HospitalComment on above:Performed By: #### LIPID, CMP, TSH ####[facility] [address]muswilr[address] [place] [address]Dr. Marysol ChangUrea nitrogen/Creatinine [Mass ratio]42.6 mg/mgPike Community HospitalComselect specialty hospital[facility] on above:Performed By: #### LIPID, CMP, TSH ####[facility] [address]wxlfo[address] [place] [address]Dr. Marysol PeaceTSHon 46-58-9474UWA6.298 uIU/mLNormal0.358-3.740The [facility] HospitalComselect [facility] on above: Performed By: #### LIPID, CMP, TSH ####[facility] [address]otjc[address] [place] [address]Dr. Marysol PeaceDAT - TSHon 33-14-8773NHX1.031 uIU/mLNormal0.358-3.740The [facility] HospitalComselect specialty [facility] on above:Performed By: #### DATTSH #### [facility] [address] [place] [address] [address] Marysol CHÁVEZAultman Orrville HospitalComment on above: Result Comment: <0.34 UIU/ml HYPERTHYROID 0.34-5.60 UIU/ml EUTHYROID >5.60 UIU/ml HYPOTHYROIDPerformed By: #### DATTSH #### [facility] [address] [address] [address] Marysol PeaceGLYCOHEMOGLOBIN A1Con 80-74-3537CEQ RECOMMENDATIONSEE BELOWNormal The [facility] Memorial HospitalComment on above:Result Comment: ADA RECOMMENDED LIMIT 4.0 - 6.0 ADA THERAPEUTIC TARGET < 7.0 ACTION SUGGESTED > 7.0Performed By: #### DATA1C #### [facility] [address] [address] [address] Marysol PeaceGlucose [Mass/Vol]151 mg/dLNoVeterans Health AdministrationComment on above:Performed By: #### DATA1C #### [facility] [address] [place] [address] Dr. Marysol PeaceHbA1c (Bld) [Mass fraction]6.9 %Critically high4.5-6.2The [facility] HospitalComment on above:Performed By: #### DATA1C #### [facility] [address] [address] [address] Marysol PeaceXR KNEE RT 4V or >on 47-69-6454VE KNEE RT 4V or >RIGHT KNEE FOUR VIEWS: 02/26/2022 4:09 PM EDT Clinical Data: C/O: [...] Electronically authenticated by: JOSH COOK Date: 2022-02-26 16:36Pike Community HospitalXR DEXA BONE DENSITYon 86-25-1246SZ DEXA BONE DENSITY EXAMINATION: XR DEXA BONE [...] Electronically authenticated by: PABLO MORRIS Date: 2022-01-18 16:32No[facility] AUTO DIFFon 05-30-8140SLAJ #0.0 103/ulNormal0.0-0.1[facility] HospitalComment on above:Performed By: #### CBC ####[facility] Psxxeeccqf[address] [place], [place] [address]Dr.Marysol ChangBasophils/100 WBC (Bld)0.4 %Normal0.2-2.0The [facility] Memorial HospitalComment on above:Performed By: #### CBC ####[facility] [address]ofkqtxkzs[address] [place], [place] [address]Dr.Piedadlan ChangEO #0.2 103/ulNormal0.0-0.7The [facility] HospitalComment on above:Performed By: #### CBC ####[facility] Betiqxqatt[address] [place], [place] [address]Dr.Marysol ChangEosinophils/100 WBC (Bld)2.4 %Normal 0.9-7.0The [facility] HospitalComment on above:Performed By: #### CBC ####[facility] Jjenkoiyje[address] [place], [place] [address]Dr.Marysol Peace Erythrocyte distribution width (RBC) [Ratio]12.5 %Jmdbaa87.0-15.0The [facility] HospitalComment on above:Performed By: #### CBC ####[facility] [address]chqmzr[address] [place], [place] [address]Dr.Marysol ChangHematocrit (Bld) [Volume fraction]45.6 %Pfujmc24.0-48.0The [facility] HospitalComment on above:Performed By: #### CBC ####[facility] [address]yl[address] [place] [address]Dr.Marysol ChangHemoglobin (Bld) [Mass/Vol]15.3 g/dL Pylcbm55.0-16.0The [facility] HospitalComment on above:Performed By: #### CBC ####[facility] [address]whsk[address] [place] [address]Dr. Piedadlan ChangIG #0.03 10e3/ulNormal0.00-0.03The [facility] HospitalComment on above: Performed By: #### CBC ####[facility] [address]uzqhzecpr[address] [place], [place] [address]Dr.Marysol ChangIG %0.4 %Normal0.0-0.5The [facility] HospitalComment on above:Performed By: #### CBC ####[facility] Trcnogafzg[address] [place], [place] [address]Dr.Marysol PeaceLYMPH #1.4 103/ulNormal1.2-3.8The [facility] HospitalComment on above:Performed By: #### CBC ####[facility] [address]mbzlhhued[address] [place], [place] [address]Dr. Marysol PeaceLymphocytes/100 WBC (Bld)19.9 %Critically low20.5-60.0The [facility] HospitalComment on above:Performed By: #### CBC ####[facility] [address]elfwvsfns[address] [place], [place] [address]Dr.Marysol PeaceMANUAL DIFF REQ NONormalThe [facility] HospitalComment on above:Performed By: #### CBC ####[facility] [address]xemjdnzs[address] [place], [place] [address]Dr. Marysol PeaceH (RBC) [Entitic mass]29.5 szYucovs50.7-34.0The [facility] Comment on above:Performed By: #### CBC ####[facility] [address]ynlqpsih[address] [place], [place] [address]Dr.Marysol PeaceMCHC (RBC) [Mass/Vol]33.6 g/dL Lpqzfs91.9-35.2The [facility] HospitalComment on above:Performed By: #### CBC ####[facility] [address]zf[address] [place] [address]Dr. Marysol PeaceMCV (RBC) [Entitic vol]87.9 oEGcsimn16.0-99.0The [facility] Memorial Hospital Comment on above:Performed By: #### CBC ####[facility] Hyetym[address] [place], [place] [address]Dr.Marysol PeaceMONO #0.8 103/ulNormal0.3-0.8 The [facility] HospitalComment on above:Performed By: #### CBC ####[facility] Ieoktwzpgi[address] [place], [place] [address]Dr.Marysol Peace Monocytes/100 WBC (Bld)11.8 %Normal1.7-12.0The [facility] HospitalComment on above:Performed By: #### CBC ####[facility] Wdtduivkw[address] [place], [place] [address]Dr.Marysol PeaceNEUT #4.4 103/ulNormal1.4-6.5The [facility] Hospitalment on above:Performed By: #### CBC ####[facility] Ohybedzoyi[address] [place], [place] [address]Dr.Marysol PeaceNeutrophils/100 WBC (Bld)65.1 %Opfygv45.0-75.0The [facility] HospitalComment on above:Performed By: #### CBC ####[facility] Ophjgyuj[address] [place], [place] [address]Dr.Marysol PeacePlatelet mean volume (Bld) [Entitic vol]10.9 fLNormal9.5-13.5 The [facility] HospitalComment on above:Performed By: #### CBC ####[facility] Hykzhsxyxt[address] [place], [place] [address]Dr.Piedadlan FzsluVNM341 103/weVrevfw172-426Rze [facility] HospitalComment on above:Performed By: #### CBC ####[facility] Cgexgwnkpg[address] [place], [place] [address]Dr. Marysol ChangRBC5.19 106/ulNormal4.20-5.40The [facility] HospitalComment on above: Performed By: #### CBC ####[facility] [address] [address]Dr.Yilan PeaceWBC6.8 103/ulNormal4.0-11.0The [facility] HospitalComment on above:Performed By: #### CBC ####[facility] [address] [address]Dr.Yilan PeaceCT CHEST WO CON on 79-86-8387QZ CHEST WO CONEXAMINATION: CT CHEST WO CON HISTORY: Solitary nodule of lung [...] Electronically authenticated by: JULIAN SLAUGHTER Date: 2021-12-06 11:39NoVeterans Health AdministrationGLYCOHEMOGLOBIN A1Con 70-70-9491MZX RECOMMENDATIONSEE BELOW NormalThe [facility] HospitalComselect [facility] on above:Result Comment: ADA RECOMMENDED LIMIT 4.0 - 6.0 ADA THERAPEUTIC TARGET < 7.0 ACTION SUGGESTED > 7.0Performed By: #### A1C ####[facility] [address] [id number].Yilan PeaceGlucose [Mass/Vol]137 mg/dLPike Community HospitalComment on above:Performed By: #### A1C ####[facility] [address] [address]Dr.Yilan PeaceHbA1c (Bld) [Mass fraction]6.4 % Critically high4.5-6.2The [facility] HospitalComment on above:Performed By: #### A1C ####[facility] [address] [address]Dr. Marysol PeaceLIPID PROFILEon 20-42-4372SQMA-HDL RATIO NORMSEE [facility] CenterComment on above:Result Comment: 3.3 - 4.4 LOW RISK 4.4 - 7.1 AVERAGE RISK 7.1 - 11.0 MODERATE RISK >11.0 HIGH RISKPerformed By: #### CMP, TSH, LIPID #### [facility] [address] [address] [address] Marysol Hardinesterol [Mass/Vol]154 mg/dLNormal<=200[facility] Comment on above:Performed By: #### CMP, TSH, LIPID #### [facility] [address] [address] [address] Marysol Stahl in HDL [Mass/Vol]33 mg/dLCritically zfb50-88Cll [facility] HospitalComment on above:Performed By: #### CMP, TSH, LIPID #### [facility] [address] [place] [address] Dr. Marysol Hardinesterol in LDL [Mass/Vol]77.8 mg/dLPike Community HospitalComment on above:Performed By: #### CMP, TSH, LIPID #### [facility] [address] [address] [address] Marysol Stahl.total/Cholesterol in HDL [Mass ratio]4.7 {ratio} NormalThe Community Memorial HospitalComment on above:Performed By: #### CMP, TSH, LIPID #### [facility] [address] [place] [address] Dr. Marysol Ventura NORMAL> or = 60 mg/dl - LOW CARDIOVASCULAR RISK <40 mg/dl - HIGH CARDIOVASCULAR RISKPike Community HospitalComment on above:Performed By: #### CMP, TSH, LIPID #### [facility] [address] [address] [address] Marysol Quinonez CALC NORMALSEE BELOWPike Community HospitalComment on above:Result Comment: <100 mg/dl OPTIMAL 100 - 129 mg/dl NEAR OR ABOVE OPTIMAL 130 - 159 mg/dl BORDERLINE HIGH 160 - 189 mg/dl HIGH >190 mg/dl VERY HIGH Performed By: #### CMP, TSH, LIPID #### [facility] [address] [address] [address] Marysol PeaceTriglyceride [Mass/Vol]216 mg/dLCritically high<=150M[facility] County HospitalComment on above:Performed By: #### CMP, TSH, LIPID #### [facility] [address] [address] [address] Marysol Townsend CALC43.2 mg/dLNoVeterans Health AdministrationComment on above: Performed By: #### CMP, TSH, LIPID #### [facility] [address] [address] [address] Marysol PeaceMG MAMM DIAGNOSTIC 3D OMKAR CADon [id number] MAMM DIAGNOSTIC 3D OMKAR CADPatient: RENUKA CACERESLyubov Exam Date: 12/06/2021 : 1960 Gender:F Ordering : DR SINGH FOWLER D.O. Admission #: [id number] Family : Order #: [id number] CLICK HERE TO VIEW EXAM RADIOLOGY REPORT [...] colon/kidney cancer at age 38. LOCATION: [facility] BREAST COMPOSITION: Heterogeneously dense,which may obscure [...] by: Pablo Morris M.D. on 12/06/2021 at 10:49Pike Community HospitalPROF 14(COMP METB)on 57-58-3222Fextdpe [Mass/Vol]4.0 g/dLNormal3.4-5.0 [facility] HospitalComment on above:Performed By: #### CMP, TSH, LIPID #### [facility] [address] [place] [address] Dr. Marysol PeaceAlbumin/Globulin [Mass ratio]1.1 {ratio}NormalMorrow County HospitalComment on above:Performed By: #### CMP, TSH, LIPID #### [facility] [address] [place] [address] Dr. Marysol Aguirre [Catalytic activity/Vol]88 U/ASqruuw76-010Kyy [facility] HospitalComment on above:Performed By: #### CMP, TSH, LIPID #### [facility] [address] [address] [address] Marysol Guadalupe [Catalytic activity/Vol]36 U/JUbndkp05-30Gui [facility] HospitalComment on above:Performed By: #### CMP, TSH, LIPID #### [facility] [address] [address] [address] Marysol Bañuelos gap [Moles/Vol]11.4 mmol/LNormalThe [facility] Comment on above:Performed By: #### CMP, TSH, LIPID #### [facility] [address] [place] [address] Dr. Marysol PeaceAST [Catalytic activity/Vol]18 U/VUnbbjn03-28Dml [facility] HospitalComment on above:Performed By: #### CMP, TSH, LIPID #### [facility] [address] [address] [address] Marysol PeaceBilirubin [Mass/Vol]0.5 mg/dLNormal0.2-1.0[facility] Comment on above:Performed By: #### CMP, TSH, LIPID #### [facility] [address] [place] [address] Dr. Marysol PeaceCalcium [Mass/Vol]9.5 mg/dLNormal8.5-10.1[facility] Comment on above:Performed By: #### CMP, TSH, LIPID #### [facility] [address] [place] [address] Dr. Marysol PeaceChloride [Moles/Vol]102 mmol/WAyxbzl68-313Gns [facility] Comment on above:Performed By: #### CMP, TSH, LIPID #### [facility] [address] [place] [address] Dr. Marysol PeaceCO2 [Moles/Vol]31.7 mmol/JGyzjps08.0-32.0[facility] Comment on above:Performed By: #### CMP, TSH, LIPID #### [facility] [address] [place] [address] Dr. Marysol PeaceCreatinine [Mass/Vol]0.63 mg/dLNormal0.55-1.02The [facility] HospitalComment on above:Performed By: #### CMP, TSH, LIPID #### [facility] [address] [place] [address] Dr. Marysol DuarteGFR-AF ISRAELI>60Normal>=60The [facility] HospitalComment on above:Performed By: #### CMP, TSH, LIPID #### [facility] [address] [place] [address] Dr. Marysol DuarteGFR-NON AF ISRAELI>60Normal>=60The [facility] HospitalComment on above:Performed By: #### CMP, TSH, LIPID #### [facility] [address] [address] [address] Marysol PeaceGlobulin (S) [Mass/Vol]3.7 g/dLNoVeterans Health AdministrationComment on above:Performed By: #### CMP, TSH, LIPID #### [facility] [address] [address] [address] Marysol PeaceGlucose [Mass/Vol]129 mg/dLCritically srtm61-179Bfx [facility] HospitalComment on above:Performed By: #### CMP, TSH, LIPID #### [facility] [address] [address] [address] Marysol PeacePotassium [Moles/Vol]5.1 mmol/LNormal3.5-5.1[facility] Comment on above:Performed By: #### CMP, TSH, LIPID #### [facility] [address] [address] [address] Marysol PeaceProtein [Mass/Vol]7.7 g/dLNormal6.4-8.2[facility] Comment on above:Performed By: #### CMP, TSH, LIPID #### [facility] [address] [address] [address] Marysol PeaceSodium [Moles/Vol]140 mmol/UHimaii377-397Uln [facility] Comment on above:Performed By: #### CMP, TSH, LIPID #### [facility] [address] [address] [address] Marysol PeaceUrea nitrogen [Mass/Vol]20.0 mg/dLCritically high7.0-18.0The [facility] HospitalComment on above:Performed By: #### CMP, TSH, LIPID #### [facility] [address] [address] [address] Marysol PeaceUrea nitrogen/Creatinine [Mass ratio]31.7 mg/mgNoVeterans Health AdministrationComment on above:Performed By: #### CMP, TSH, LIPID #### [facility] [address] [address] [address] Marysol Cohn 91-34-4118RDD1.978 uIU/mLNormal0.358-3.740Morrow County HospitalComment on above:Performed By: #### CMP, TSH, LIPID #### [facility] [address] [place], [place] [address] Dr. Marysol AlfaroUniversity Hospitals TriPoint Medical CenterComment on above: Result Comment: <0.34 UIU/ml HYPERTHYROID 0.34-5.60 UIU/ml EUTHYROID >5.60 UIU/ml HYPOTHYROIDPerformed By: #### CMP, TSH, LIPID #### [facility] [address] [place], [place] [address] Dr. Marysol Peace Vital Signs Date TimeVital SignValuePerforming BxgskrkicMudsiijy47-81-2043 08:40-0400Body .56 cmBenjamin Ball DO Work Phone: [phone])[address]09-08-2025 08:40-0400 Body mass index (BMI) [Ratio]32.7 kg/d8Pwiiojaj Ball DO Work Phone: [phone])[address]09-08-2025 08:40-0400 Body sauoen34.4 kgBenjamin Ball DO Work Phone: [phone])[address] [place], [place] 4233209-08-2025 08:40-0400 Diastolic blood dfylgidp25 mm[Hg]Singh Ball DO Work Phone: [phone]09-08-2025 08:40-0400 Heart rate90 /minBenjamin Ball DO Work Phone: [phone] [place], [place] 7344809-08-2025 08:40-0400 Respiratory rate12 /minBenjamin Ball DO Work Phone: [phone])[address] [place], [place] 4233209-08-2025 08:40-0400 Systolic blood xmbzygpk643 mm[Hg]Singh Ball DO Work Phone: [phone])[address]06-25-2025 08:33-0400 Body .56 cmBenjamin Ball DO Work Phone: [phone]06-25-2025 08:33-0400 Body mass index (BMI) [Ratio]31.4 kg/a7Hstywsxr Ball DO Work Phone: [phone])458-[address] [place], [place] 7344806-25-2025 08:33-0400 Body rbwipq17 kgBenjamin Ball DO Work Phone: [phone])[address] [place], [place] 4233206-12-2025 10:53-0400 Body cuhlzyvrine80.9 [degF]Singh Ball DO Work Phone: [phone])[address] [place], [place] 4233206-12-2025 10:53-0400 Body ejatqn60.46 kgBenjamin Ball DO Work Phone: [phone])[address] [place], [place] 4233206-12-2025 10:53-0400 Diastolic blood mm[Hg]Singh Ball DO Work Phone: [phone])[address] [place], [place] 4233206-12-2025 10:53-0400 Heart rate77 /minBenjamin Ball DO Work Phone: [phone])[address] [place], [place] 4233206-12-2025 10:53-0400 Respiratory rate18 /minBenjamin Ball DO Work Phone: [phone])[address] [place], [place] 4233206-12-2025 10:53-0400 SaO2% (BldA) [Mass fraction]98 %Singh Ball DO Work Phone: [phone])[address] [place], [place] 4233206-12-2025 10:53-0400 Systolic blood fyubsurz375 mm[Hg]Singh Ball DO Work Phone: [phone] [place], [place] 7344805-01-2025 08:44-0400 Body pfilpt829.18 cmOhio[facility]05-01-2025 08:44-0400Body mass index (BMI) [Ratio]30 kg/b2JynlluqtpOhiohealth Hardin Memorial Hospital05-01-2025 08:44-0400Body nugwxu71.14 kgOhiohealth Hardin Memorial Hospital05-01-2025 08:44-0400Diastolic blood opxigyge63 mm[Hg][facility] 11-14-2024 08:44-0400Heart rate80 /minOhiohealth Hardin Memorial Hospital 11-14-2024 08:44-0400Respiratory rate12 /minOhiohealth [facility]in [facility] Hospital 11-14-2024 08:44-0400Systolic blood komxxdrv536 mm[Hg][facility]02-03-2025 10:32-0500Body .18 cmOhiohealth [facility]in [facility] Hospital02-03-2025 10:32-0500Body mass index (BMI) [Ratio]30.4 kg/c1EuapskdefOhiohealth Hardin Memorial Hospital02-03-2025 10:32-0500Body vihniwrjsxl88.2 [degF][facility]02-03-2025 10:32-0500Body rjwybc39.05 kgOhiohealth Hardin Memorial Hospital02-03-2025 10:32-0500Diastolic blood mbtdhipm94 mm[Hg] [facility]02-03-2025 10:32-0500Heart sose345 /min [facility]02-03-2025 10:32-0500Respiratory rate16 /min [facility]02-03-2025 10:32-0500Systolic blood nwwovklp702 mm[Hg][facility]12-19-2024 11:24-0500Body raavha742.18 cmBenjamin Ball DO Work Phone: [facility]12-28-2023 12:15-0500 Body micnoa847.18 cmBenjamin Ball Other [facility] [employer] Other 12-28-2023 12:15-0500Diastolic blood ednsqvvg58 mm[Hg] Singh Ball Other [facility] [employer] Other 12-28-2023 12:15-0500Systolic blood eleldita255 mm[Hg] Singh Ball Other [facility] [employer] Other 12-22-2023 08:30-0500Body wmicuk904.18 cmBenjamin Ball Other [place] [employer] Other 12-22-2023 08:30-0500Body mass index (BMI) [Ratio] 34.83 kg/j4Ifylwjet Ball Other [facility] [employer] Other 12-22-2023 08:30-0500Body oeathw468.88 kgBenjamin Ball Other [facility] [employer] Other 12-22-2023 08:30-0500Diastolic blood ttzgumvz22 mm[Hg] Singh Ball Other [facility] [employer] Other 12-22-2023 08:30-0500Respiratory rate16 /minBenjamin Ball Other [facility] [employer] Other 12-22-2023 08:30-0500Systolic blood lhhozbsj321 mm[Hg] Singh Ball Other [facility] [employer] Other 12-14-2023 09:36-0500Body ykvfln727.56 cmDO Singh Ball Work Phone: [facility]12-14-2023 09:36-0500 Body cpxyfrbsobk00.3 [degF]DO Singh Ball Work Phone: [phone]12-14-2023 09:36-0500 Body .85 kgDO Singh Ball Work Phone: [phone]12-14-2023 09:36-0500 Diastolic blood jubchzhj96 mm[Hg]DO Singh Ball Work Phone: [phone]12-14-2023 09:36-0500 Heart rate83 /minDO Singh Ball Work Phone: [phone]12-14-2023 09:36-0500 Respiratory rate20 /minDO Singh Ball Work Phone: [phone]12-14-2023 09:36-0500 SaO2% (BldA) [Mass fraction]98 %DO Singh Ball Work Phone: [facility]12-14-2023 09:36-0500 Systolic blood malidxec263 mm[Hg]DO Singh Ball Work Phone: [phone]08-21-2023 08:30-0400 Body zwudue004.18 cmBenjamin Ball Other [place] [employer] Other 08-21-2023 08:30-0400Body mass index (BMI) [Ratio] 31.01 kg/k7Aeetedza Ball Other [place] [employer] Other 08-21-2023 08:30-0400Body lgpfte68.81 kgBenjamin Ball Other [place] [employer] Other 08-21-2023 08:30-0400Diastolic blood mm[Hg] Singh Ball Other [place] [employer] Other 08-21-2023 08:30-0400Respiratory rate12 /minBenjamin Ball Other [place] [employer] Other 08-21-2023 08:30-0400Systolic blood rthpauwt044 mm[Hg] Singh Ball Other [place] [employer] Other 06-14-2023 09:30-0400Body iorutvlmzkj73.9 [degF]DO Singh Ball Work Phone: [phone]06-14-2023 09:30-0400 Body dqxsma81.26 kgDO Singh Ball Work Phone: [facility]06-14-2023 09:30-0400 Diastolic blood pnrmname97 mm[Hg]DO Singh Ball Work Phone: [facility]06-14-2023 09:30-0400 Heart rate79 /minDO Singh Ball Work Phone: [facility]06-14-2023 09:30-0400 Respiratory rate16 /minDO Singh Ball Work Phone: [facility]06-14-2023 09:30-0400 SaO2% (BldA) [Mass fraction]98 %DO Singh Ball Work Phone: [facility]06-14-2023 09:30-0400 Systolic blood fgdatjmj790 mm[Hg]DO Singh Ball Work Phone: [facility]04-19-2023 10:30-0400 Body kdwntu236.18 cmBenjamin Ball Other [employer] Other 04-19-2023 10:30-0400Body mass index (BMI) [Ratio] 31.38 kg/p2Sitcisje Ball Other [employer] Other 04-19-2023 10:30-0400Body .9 kgBenjamin Ball Other [employer] Other 04-19-2023 10:30-0400Diastolic blood giyixbyk45 mm[Hg] Singh Ball Other [employer] Other 04-19-2023 10:30-0400Respiratory rate12 /minBenjamin Ball Other [employer] Other 04-19-2023 10:30-0400Systolic blood ojsjhlvy365 mm[Hg] Singh Ball Other [employer] Other 04-19-2023 09:30-0400Body supgyd690.18 cmBenjamin Ball Other [phone] [employer] Other 04-19-2023 09:30-0400Body mass index (BMI) [Ratio] 31.38 kg/y3Jeyhkboc Ball Other [place] [employer] Other 04-19-2023 09:30-0400Body buvxmw89.9 kgBenjamin Ball Other [place] [employer] Other 04-19-2023 09:30-0400Diastolic blood bvbyebcm97 mm[Hg] Singh Ball Other [place] [employer] Other 04-19-2023 09:30-0400Respiratory rate12 /minBenjamin Ball Other [place] [employer] Other 04-19-2023 09:30-0400Systolic blood xefnlgwq132 mm[Hg] Singh Ball Other [place] [employer] Other [id number] 08:22-0500Body cqvmek379.56 cmDO Singh Ball Work Phone: [facility]12-14-2022 08:22-0500 Body .7 kgDO Singh Ball Work Phone: [phone]12-14-2022 08:22-0500 Diastolic blood sulaasun15 mm[Hg]DO Singh Ball Work Phone: [phone]12-14-2022 08:22-0500 Heart rate87 /minDO Singh Ball Work Phone: [phone]12-14-2022 08:22-0500 Respiratory rate20 /minDO Singh Ball Work Phone: [phone]12-14-2022 08:22-0500 SaO2% (BldA) [Mass fraction]97 %DO Singh Ball Work Phone: [phone])[address] [place], [place] 4233212-14-2022 08:22-0500 Systolic blood wazmcpej799 mm[Hg]DO Singh Ball Work Phone: [phone])[address] [place], [place] 4233209-28-2022 08:05-0400 Body rjfilp65.94 kgDO Singh Ball Work Phone: [phone])[address] [place], [place] 4233209-28-2022 08:05-0400 Diastolic blood fytngveq09 mm[Hg]DO Singh Ball Work Phone: [phone])[address] [place], [place] 4233209-28-2022 08:05-0400 Heart rate98 /minDO Singh Ball Work Phone: [phone])[address] [place], [place] 4233209-28-2022 08:05-0400 Respiratory rate20 /minDO Singh Ball Work Phone: [phone])[address] [place], [place] 4233209-28-2022 08:05-0400 SaO2% (BldA) [Mass fraction]96 %DO Singh Ball Work Phone: [phone])[address] [place], [place] 4233209-28-2022 08:05-0400 Systolic blood einaausi647 mm[Hg]DO Singh Ball Work Phone: [phone])[address] [place], [place] 4233206-30-2022 08:26-0400 Body auibjbcgtsn79.8 [degF]DO Singh Ball Work Phone: 1(768)[address] [place], [place] 4233206-30-2022 08:26-0400 Body .62 kgDO Singh Ball Work Phone: [phone])[address] [place], [place] 4233206-30-2022 08:26-0400 Diastolic blood ucdlrqjm98 mm[Hg]DO Singh Ball Work Phone: 1(857)[address] [place], [place] 4233206-30-2022 08:26-0400 Heart rate82 /minDO Singh Ball Work Phone: 1(334)[address] [place], [place] 4233206-30-2022 08:26-0400 Respiratory rate16 /minDO Singh Ball Work Phone: [phone])[address] [place], [place] 4233206-30-2022 08:26-0400 SaO2% (BldA) [Mass fraction]96 %DO Singh Ball Work Phone: [facility]06-30-2022 08:26-0400 Systolic blood lionlhum176 mm[Hg]DO Singh Ball Work Phone: [facility]04-06-2022 08:57-0400 Body kstibm903.56 cmMD Thiago Durbin Work Phone: [facility]04-06-2022 08:57-0400 Body wyiloyzwocs10 [degF]MD Thiago Durbin Work Phone: [facility]04-06-2022 08:57-0400 Body .11 kgMD Thiago Durbin Work Phone: [facility]04-06-2022 08:57-0400 Diastolic blood xxxphepw41 mm[Hg]MD Thiago Durbin Work Phone: [facility]04-06-2022 08:57-0400 Heart rate87 /minMD Thiago Durbin Work Phone: [facility]04-06-2022 08:57-0400 Respiratory rate20 /minMD Thiago Durbin Work Phone: [facility]04-06-2022 08:57-0400 SaO2% (BldA) [Mass fraction]96 %MD Thiago Durbin Work Phone: [facility]04-06-2022 08:57-0400 Systolic blood tsaadzhh133 mm[Hg]MD Thiago Durbin Work Phone: [facility] Encounters Encounter DateEncounter TypeCare ProviderFacilityStart: 03-24-2025 End: 19-37-0729ultsnbbjcnYaaeaowc Ball DO Work Phone: [facility] Work Phone: Start: 03-24-2025 End: 52-23-9818Uzrqyth encounter procedureBenjamin Ball DO-[facility] Work Phone: Start: 02-19-2025 End: 64-10-8408qrpcmznjmaCoviiqie Ball DO Work Phone: [phone]-Stkksnpv Therapy [place]: 02-19-2025 End: 97-48-2871Gbibydurnj RecurringJustin A Katarina DO-[facility] Therapy [place]Start: 18-72-4281Huxhpfkkal RecurringJustin A Katarina DO-Physical Therapy [place]Start: 07-65-3489Ruo-patient / Non-visitCatherine Dixon [employer]-[facility] Work Phone: Start: 01-08-2025 End: 85-49-7824frnxixwxtfBqollfdf Ball DO Work Phone: [facility] Work Phone: Start: 01-08-2025 End: 78-21-9590Lfvazfm encounter procedureJuwilfrid Bray DO-[facility] Work Phone: Start: 01-08-2025 End: 18-12-4230Pqbgqbe encounter procedureJustin Ajit Bray DO-[facility] Start: 01-08-2025 End: 15-76-6803mndlxjmsptPjsvrmtw Ball DO Work Phone: [facility] Work Phone: Start: 38-59-5591Rkjodxbsgq RecurringAmy Shun Monaco MD- [facility] Work Phone: Start: 84-00-3712dahajsfzoyAsvrorwv Ball [facility] 12-26-2024 End: 32-06-9325Urvxwkd encounter procedureMahesh Ferrari APRN-[facility] Work Phone: Start: 11-14-2024 End: 17-22-3003gcmuangbbaVwfrmrbybL[facility] Work Phone: Start: 11-14-2024 End: 24-26-6848Ikvkeberb for general adult medical examination without abnormal findingsFirelands Regional Medical CenterStart: 11-14-2024 End: 66-97-4051Wfjugms encounter procedureCount Includes [facility] Work Phone: Start: 11-14-2024 End: 91-15-2099Wjauxiw encounter statusBenshaji Fowler DOSt. Elizabeth Hospitaltart: 08-19-2024 End: 47-02-1452Gsbwlyj encounter procedureCount Includes [facility] Work Phone: Start: 07-13-2023 End: 10-92-7061thksyhdxyzIhyclfmt Ball Other [employer] Other Start: 11-06-1329Zbvlce outpatient visit 15 minutes Singh [facility] ClinicStart: 07-07-2023 End: 94-35-0466radnoflpdoEwtpstvq Ball Other [employer] Other Start: 22-80-7591Rmbjzx outpatient visit 25 minutes Singh [facility] ClinicStart: 06-29-2023 End: 11-64-4159bcqlwxrblkNQ Singh Fowler Work Phone: [facility] Work Phone: Start: 06-29-2023 End: 09-55-1928Dcocdvovcc RecurringDO Singh Fowler Work Phone: [facility] [facility] Work Phone: Start: 06-06-2023 End: 30-38-7541uvrduvwyfxLixepfmz Ball Other noPlayhem Other Start: 84-65-1606Mkqrtnfnd encounterBenatalya Fowler Medical ClinicStart: 06-04-2023 End: 68-91-9390juqvflaxblIbpifvdi Ball Other noPlayhem Other Start: 36-38-0796Lgigrnuef encounterBenjamin BallFPG [facility] Medical ClinicStart: 03-14-2023 End: 38-97-0568cgmgeyfrmxJulbuxff Ball Other noPlayhem Other Start: 64-37-5848Icebiabbq encounterBenjamin BallFPG [facility] ClinicStart: 03-06-2023 End: 52-54-7626abubrhoverHdvcurye Ball Other noCoreXchange [employer] Other Start: 95-79-7978Cmswzpy encounter procedureBenjamin BallFPG [facility] Medical ClinicStart: 53-92-2649Sgadvpxpa encounterBenjamin BallFPG [facility] ClinicStart: 01-13-2023 End: 23-51-1315wzecusovgaAdhmlnvh Ball Other [facility]Deckp[facility] [employer] Other Start: 60-14-8319Tovahznnr encounterBenjamin BallFPG [facility] ClinicStart: 01-12-2023 End: 29-58-8237fzhfeenxbtBxpxihmw Ball Other no[employer]Xchange [employer] Other Start: 92-42-9247Cttmgoyyy encounterBenjamin BallFPG [facility] ClinicStart: 01-11-2023 End: 16-50-6672zjmjoemvcnTqamhda R NILLFacility:CD:[id number]: 12-28-2022 End: 11-87-4143oswrujilitXC Singh Ball Work Phone: [facility] Work Phone: Start: 12-28-2022 End: 33-42-0377Ulamyjbjhg RecurringDO Singh Ball Work Phone: [facility] Work Phone: Start: 12-02-2022 End: 22-83-2948gmdtzniclpSoximmj R NILLFacility:LEIDY [facility] Centertart: 11-28-2022 End: 73-53-2966xnpcmmnnusIF SINGH FOWLERFacility:P9Jgsfc: 11-02-2022 End: 88-66-8022edtullpizlZubdudot Ball Other noPlayhem Other Start: 88-59-6887Uymcbqdgo for general adult medical examination without abnormal findingsBenjamin BallFPG [facility] Medical ClinicStart: 39-16-2499Nmwzilwa preventive med est patient 40-64yrsBenjamin BallFPG [facility] ClinicStart: 10-14-2022 End: 62-32-2321ozqmnkaaneGsnpdubm Ball Other PPDai Other Start: 65-13-1387Icmursjrb encounterBenjamin BallEULOGIOG [facility] ClinicStart: 73-52-4915Ypzloyzvc for general adult medical examination without abnormal findingsDR S[facility]H FOWLERGrant Hospital HospitalStart: 09-28-2022 End: 71-42-3176lisaigspgzYltlkjui Ball Other noPlayhem Other Start: 24-44-2310Gvyehjhyw encounterBenjaarianne BurtonG [facility] ClinicStart: 09-27-2022 End: 01-53-5721Wvtmuydlr for general adult medical examination without abnormal findingsDR SINGH BALLFacility:H1Idehp: 09-27-2022 End: 83-45-2199woyznttuafWW SINGH FOWLERSouthaven [employer] Other Start: 22-14-5497Qtjgxnznc encounterColleen CalveyLAKESHA [facility] ClinicStart: 09-19-2022 End: 07-91-3913utidxcwbkmYyvxzjli Ball Other noPlayhem Other Start: 16-68-4337Jbjexdtph for general adult medical examination without abnormal findingsBenjamin BallFPG [facility] ClinicStart: 38-88-8442Eijwaaurr encounterBenshaji Fowler Medical ClinicStart: 09-16-2022 End: 45-34-7227ssbaypaomaXfpeaaji Ball Other [facility]isc[facility] [employer] Other Start: 24-86-8453Nfezzc outpatient visit 15 minutes Singh Fowler Medical ClinicStart: 06-29-2022 End: 44-12-9673kjffjbbafkUZ Singh Fowler Work Phone: [facility] Work Phone: Start: 06-29-2022 End: 64-91-6827Allfhueneq RecurringDO Singh Fowler Work Phone: [facility] CenterStart: 05-19-2022 End: 62-70-2359attrbwxqcaJZ SINGH BALLFacility:G9Kkqle: 05-02-2022 End: 06-28-8712sbvxjphtpgGG SINGH BALLFacility:Z4Dkkha: 04-13-2022 End: 08-43-1220qoszrhzhklJP Singh Fowler Work Phone: [facility] Work Phone: Start: 04-13-2022 End: 25-45-3311Vryfltyeay RecurringDO Singh Fowler Work Phone: [facility] CenterStart: 03-17-2022 End: 75-86-5020crssjajehlIdkmcopk [place] Other [place] [employer] Other Start: 74-58-7240Oxceyi outpatient new 30 minutes Vee Yasemin Hardy OrthopedicsStart: 03-17-2022 End: 26-11-3810Plbizut encounter procedureDO Singh Fowler Work Phone: [facility] Start: 02-26-2022 End: 77-49-2690drnqqeqdhoUEHZKT RODRIGUEZ .Facility:W1Dgdpa: 02-07-2022 ambulatoryMichael NILLFacility:FM MilanStart: 01-18-2022 End: 87-52-6952ufegcmmizgBB PABLO JIMENEZERFacility:W0Igauh: 01-13-2022 End: 79-54-5098Bkuimsemqn RecurringDO Singh Yudi Work Phone: [facility]Cancer CenterStart: 01-02-2022 End: 61-13-7759dwtkwodcavTB PABLO JUNGEBERFacility:W8Gujvc: 12-06-2021 End: 87-08-4827tsbcwavxyqQR SINGH BALLFacility:A1Wdibr: 10-20-2021 End: 42-63-4181Auoizoavln RecurringMD Thiago Durbin Work Phone: [facility]-Cancer CenterStart: 03-08-2021 End: 30-21-0720Goi-admission assessmentJames E Fanning [facility] Procedures DateProcedureProcedure DetailPerforming ClinicianStart: 60-85-4742W-ray of right knee, four viewsBenjamin Ball DO Work Phone: Start: 08-35-7073Mzpljgiih mammography of bilateral breastsBenjamin Ball DO Work Phone: Start: 40-50-6087C-ray of right kneeDO Singh Ball Work Phone: Start: 53-20-3015Tf-excision of breast for clearance of tumor marginsJames Fanning Start: 52-38-5519Jwwswugi of ankle (disorder)Daniel Fanning Cesarean sectionJames Fanning Fine needle aspiration of breast using ultrasound guidanceJames Fanning Lumpectomy of right breastJames Fanning TonsillectomyJames Fanning Plan of Treatment DateCare ActivityDetailAuthorStart: 82-97-3429V-ray of right knee, four viewsXR knee RT 4V*[facility]: 72-67-9918GM Knee - right 4 ViewsSt. Elizabeth Hospitaltart: 07-43-0001Wpimgwr referralAvita Health System Work Phone: Start: 24-14-0895KkngwvvovOhiohealth Hardin Memorial Hospital Start: 91-30-6621IzgbhhqoxOhiohealth Hardin Memorial HospitalComprehensive metabolic 2000 panel - Serum or PlasmaOhiohealth Hardin Memorial HospitalComputed tomography for radiotherapy planningOhiohealth Hardin Memorial HospitalDXA Skeletal system.axial Views for bone densityOhiohealth Hardin Memorial HospitalDXA Skeletal system.axial Views for bone densityOhiohealth Hardin Memorial HospitalMG Breast - bilateral DiagnosticOhiohealth Hardin Memorial HospitalMG Breast - bilateral Diagnostic [facility] HospitalPatient referralAvita Health System Work Phone: [facility] Immunizations Immunization DateImmunizationNotesCare PazueoceOtdfcrwm08-34-6536TJQHS-92 mRNA- 1273 (Moderna)MD Thiago Durbin Work Phone: [facility]12-01-2020COVID-19 mRNA-9963 (Nila)MD Thiago Durbin Work Phone: [facility]10-09-2013tetanus and diphtheria toxoids, adsorbed, preservative free, for adult use (5 Lf of tetanus toxoid and 2 Lf of diphtheria toxoid)Singh Fowler Other [facility] Payers DatePayer CategoryPayerPolicy [id number] [facility] [id number] [id number] [id number]-[id number] 2036Tpgwvqd [id number] 2.16.840.1.513752.3.57[id number] 2.16.840.1.791702.3.57[id number] 2.16.840.1.600563.3.57[id number] 2.840.1.614228.3.57[id number] 2..840.1.975029.3.57[id number] 2.840.1.654776.3.57[id number] 2.840.1.371871.3.57[id number] 2..840.1.426791.3.57[id number] 2.16.840.1.533356.3.579.[id number] 2.840.1.552931.3.57[id number] 2.16.840.1.7[id number] 2.16.840.1.208995.3.579.2.593Unknown [id number] 2.16.840.1.4[id number] 2.16.840.1.0[id number] 2.16.840.1.382686.3.579.2.531 [id number] 2.16.840.1.997643.3.579.2.531 Social History DateTypeDetailFacilityStart: 45-86-8599Nldqsrs smoking statusNeverBluffton Hospitaltart: 10-20-2021 End: 71-16-9483Txdjxzt smoking statusNever smoked tobacco (finding)[facility] Hospitalex Assigned At [facility] Start: 24-07-6518Vnr Assigned At [facility] Start: 83-97-3806AdfIhofda (finding)[facility] Clinical Notes 03-16-2021 to 03-24-2025 Note Date & BjhlVnumBqsugmfd74-10-1004 Evaluation note* Diagnosis Onset Date Resolution Status Admit Date Chronic venous insufficiency acuteSept2024 8:21amElevated cholesterolacuteSeptember 2024 8:21amObesityacuteSeptember 2024 8:21amPrimary hypertensionacuteSeptember 2024 8:21amPrimary osteoarthritis of right kneeacuteSept2024 8:21amPulmonary nodule, rightacuteSeptember 2024 8:21amType 2 diabetes mellitus with hyperglycemiaacuteSeptember 2024 8:21amMalignant neoplasm of upper-inner quadrant of right female breastchronicSept2024 8:21am [facility] Work Phone: 1(313) 330-904206-12-2025 Evaluation note* Diagnosis Onset Date Resolution Status Admit Date Right knee pain acuteJune 2024 10:37amEncounter for monitoring aromatase inhibitor therapy chronicJune 2024 10:37amMalignant neoplasm of upper-inner quadrant of right female breastchronicJune 2024 10:37amOsteoporosis screeningchronic Kylie 2024 10:37amEncounter for monitoring aromatase inhibitor therapy chronicJune 2024 10:38amMalignant neoplasm of upper-inner quadrant of right female breastchronicJune 2024 10:38amOsteoporosis screeningchronic December 26, 2024 10:38amDiabetes mellitus type 2, controlled, without complicationsdeletedJune 2024 10:38amPulmonary nodule less than 6 mm determined by computed tomography of lungdeletedJune 2024 10:38amPrimary osteoarthritis of right kneeacuteJune 2024 8:13amChronic venous insufficiencyacuteSeptember 2024 8:21amElevated cholesterolacuteSept2024 8:21amObesityacuteSeptember 2024 8:21amPrimary hypertensionacute Yamilex 2024 8:21amPrimary osteoarthritis of right kneeacuteSeptember 2024 8:21amPulmonary nodule, rightacuteSeptember 2024 8:21amType 2 diabetes mellitus with hyperglycemiaacuteSeptember 2024 8:21amMalignant neoplasm of upper-inner quadrant of right female breastchronicSept2024 8:21am [facility] Work Phone: 1(564) 713-121805-01-2025 Evaluation note* Diagnosis Onset Date Resolution Status Admit Date Chronic venous insufficiency acuteMay 2024 8:14amElevated cholesterolacuteMay 2024 8:14amObesity acuteMay 2024 8:14amPrimary hypertensionacuteMay 2024 8:14amPulmonary nodule, rightacuteMay 2024 8:14amType 2 diabetes mellitus with hyperglycemiaacuteMay 2024 8:14amMalignant neoplasm of upper-inner quadrant of right female breastchronicMay 2024 8:14amWelcome to Medicare preventive visitnoneactiveMay 2024 8:14amRight knee painacuteJune 2024 10:37am Encounter for monitoring aromatase inhibitor therapychronicJun2024 10:37amMalignant neoplasm of upper-inner quadrant of right female breastchronic December 26, 2024 10:37amOsteoporosis screeningchronicJune 2024 10:37am Encounter for monitoring aromatase inhibitor therapychronicJune 2024 10:38amMalignant neoplasm of upper-inner quadrant of right female breastchronic December 26, 2024 10:38amOsteoporosis screeningchronicDecember 26, 2024 10:38am Diabetes mellitus type 2, controlled, without complicationsdeletedJun2024 10:38amPulmonary nodule less than 6 mm determined by computed tomography of lungdeletedJun2024 10:38amPrimary osteoarthritis of right kneeacuteJune 2024 8:13am [facility] Work Phone: 1(313) 276-163402-03-2025 Evaluation note* Diagnosis Onset Date Resolution Status Admit Date Primary hypertension acuteFebruary 2024 10:16amAcute sinusitisnoneactiveFebruary 2024 10:16amChronic venous insufficiencyacuteMay 2024 8:14amElevated cholesterol acuteMay 2024 8:14amObesityacuteMay 2024 8:14amPrimary hypertension acuteMay 2024 8:14amPulmonary nodule, rightacuteMay 2024 8:14amType 2 diabetes mellitus with hyperglycemiaacuteMay 2024 8:14amMalignant neoplasm of upper-inner quadrant of right female breastchronicMay 2024 8:14amWelcome to Medicare preventive visitnoneactiveMay 2024 8:14am [facility] Work Phone: 1(186) 737-984712-28-2023 Evaluation note* Encounter Date Diagnosis Assessment Notes Treatment Notes Treatment Clinical Notes Jun, Acute bronchitis due to other sp ecified organisms (ICD-10 - J20.8) Instructed to use Robitussin or Mucinex for cough, saline or Flonase NS for congestion, Tylenol forpain and fever. Jun,rimary hypertension (ICD-10 - I10)Avoid use of sudafed containing products, which would increase BP This patient is instructed to consume a healthy, low-fat, low-salt diet. They are also encouraged to continue exercise to achieve/maintain a normal BMI. [employer]PDai Other 12-22-2023 Evaluation note* Encounter Date Diagnosis Assessment Notes Treatment Notes Treatment Clinical Notes Jun, Primary hypertension (ICD-10 - I 10) This patient is instructed to consume a healthy, low-fat, low-salt diet. They are also encouraged to continue exercise to achieve/maintain a normal BMI. Jun,Type 2 diabetes mellitus with hyperglycemia, without long-term current use of insulin (ICD-10 - E11.65)This patient is following a comprehensive diabetic treatment [...] Microalbumin, Dilated eye exam and Foot exam Jun,Hyperlipidemia type II (ICD-10 - E78.01)Instructed on diet and exercise with continued statin therapy.Discussed the beneficial effects of lo wering cholesterol in reducing the risk for cerebrovascular and cardiovascular disease. Jun,hronic venous insufficiency (ICD-10 - I87.2)Avoid salt and elevate lower extremities, support stockings, inspect legs and feet daily for blisters and ulcerations. Jun,Other obesity due to excess calories (ICD-10 - E66.09)This patient has been instructed on a low-fat, high-fiber diet. They are instructed to reduce calories, portion sizes and snacks. It is recommended that they exercise for 30 minutes, 3-5 times weekly. Jun,ody mass index [BMI] 31.0-31.9, adult (ICD-10 - Z68.31) [employer] Other 11-21-2023 Evaluation note* Encounter Date Diagnosis Assessment Notes Treatment Notes Treatment Clinical Notes May, Primary hypertension (ICD-10 - I 10) [employer] Other 11-19-2023 Evaluation note* Encounter Date Diagnosis Assessment Notes Treatment Notes Treatment Clinical Notes May, Type 2 diabetes paige itus with hyperglycemia, without long-term current use of insulin (ICD-10 - E11.65) May,rimary hypertension (ICD-10 - I10) [employer] Other 08-21-2023 Evaluation note* Encounter Date Diagnosis Assessment Notes Treatment Notes Treatment Clinical Notes Feb, Primary hypertension (ICD-10 - I 10) This patient is instructed to consume a healthy, low-fat, low-salt diet. They are also encouraged to continue exercise to achieve/maintain a normal BMI. Feb,Type 2 diabetes mellitus with hyperglycemia, without long-term current use of insulin (ICD-10 - E11.65)This patient is following a comprehensive diabetic treatment [...] Awaiting results to determine if treatment required Feb,Hyperlipidemia type II (ICD-10 - E78.01)Instructed on diet and exercise with continued statin therapy.Discussed the beneficial effects of lo wering cholesterol in reducing the risk for cerebrovascular and cardiovascular disease. Feb,ulmonary nodule, right (ICD-10 - R91.1)CT: 6-10mm RUL, RML 08/2021 CT: stable, decreasing GGO 11/2021 CT: small, calcified pulmonary nodules 2022 Need to send for results, she believes a CT scan was completed this . GGO and nodule will require monitoring until resolved or at least 2 years w/o change have occurred . Feb,hronic venous insufficiency (ICD-10 - I87.2)Avoid salt and elevate lower extremities, support stockings, inspect legs and feet daily for blisters and ulcerations. Feb,Other obesity due to excess calories (ICD-10 - E66.09)This patient has been instructed on a low-fat, high-fiber diet. They are instructed to reduce calories, portion sizes and snacks. It is recommended that they exercise for 30 minutes, 3-5 times weekly. Feb,ody mass index [BMI] 31.0-31.9, adult (ICD-10 - Z68.31) [employer] Other 06-30-2023 Evaluation note* Encounter Date Diagnosis Assessment Notes Treatment Notes Treatment Clinical Notes Dec, Essential hypertension (ICD-10 - I10) [employer] Other 06-14-2023 Progress note Author Chiara Hoffmann [facility] December 28, 2022 9:59amNote Date/TimeJun2022 9:[address] [place] [address] Cancer Center at [address] [address] Hem/Onc Follow Up Note - OP Signed Patient: Renuka Caceres MR#: [id number] : 1960 Acct:[id number] Age/Sex: 62 / F Type: REG RCR Copies to: DO Daniel Calvert MD Michael R Nill, MD FACS~ Subjective Date/Time of Service: Date of Service: 12/28/2022 Time of Service: 09:33 Chief Complaint: Patient is here today for a 6 month follow up visit for breast cancer. She had hermamogram done in November of 2022 HPI: 12/28/2022: [...] was refilled today. [facility] showed heterogeneously dense breasts [...] regularly. Last DEXA scan was normal at [place] 01/18/2022 will be due in 1 year. She will continue letrozole 2.5 mg daily to complete a 5 to 7-year course. Moderate complexity 30-minute visit to review outside imaging and exam. 06/29/2022: Renuka is here for follow-up for her right breast cancer on letrozole. She continuesto do well without major joint complaints. She does note her hot flashes have increased since she started taking her diuretic in themornings about a month ago, but these remain tolerable. Otherwise no new complaints. Her energy is stable. She denies new lumps or skin changes on self- exam each month, and none noted on my [...] on letrozole therapy for T2 N0 M0 ER/NC positivebreast cancer, status postlumpectomy in February 2021 with reexcision to negative margins.. She completed adjuvant radiation therapy March-April 2021. She started anastrozole in May 2022 butdid not tolerate this well and stopped taking it 07/20/2021. She was changed to letrozole08/11/2021 and tolerates this well without significant hot flashes, myalgias, arthralgias. She has no skin changes, masses, or pain of the breast on self-exam. We reviewed her mammogram from [facility] performed 10/06/2021 which returned with heterogeneously dense breasts but no significant suspicious abnormalities and postsurgical changes in the right upper inner quadrant. She has not had baseline DEXA scan and we ordered this today. Advised to start calcium and vitamin D until DEXA findings which shewill be contacted with feliciano. Next follow-up with nurse practitioner in 3 months, 6 months with . Moderate complexity visit over 25 minutes for [...] continues with hot flashes, but these are moretolerable/less frequent and do not wake her up throughout the night. Otherwise she denies any new symptoms and feels well overall. She denies any new lumps or skin changes on self-exam. Her last breast exam was June 2021. She is due for her mammogram this month and has these done at [place]. We will get this record once it's completed. -- She will follow-up in [address] Hoffmann for exam and to follow-up on symptoms. She will call in sooner if needed. We will try to coordinate her next follow-up to be same day as her radiationfollow-up appointment. 07/20/2021: Renuka presents in follow-up today July 20, 2021. She is having intractable hot flashes and night that keeps her up. She is on anastrozole. Renuka presented with breast cancer having had lumpectomy in January 31, 2021. She had a 4.5 cm invasive lobular breast cancer, 0 of 6 lymph nodes positive. ER and NC was positive, H ER 2 -. [facility] genetic testing was negative for BRCA 1 and 2. Oncotype DX showed low risk disease. She was started on radiation March 2021. Her family doctor is Dr. Juan Fowler and she was operated on by Dr. Salazar Kimble. NUIQSUT: Now 62-year-old post-menopausal female- had menopause at age 53 and she did not take any HRT. She is a non-smoker and drinks alcohol occasionally and she is Ab0. She had been asymptomatic but gets her regular screening mammograms which previously had shown a suspicious area in the right breastwas being followed up. Her screening mammogram in October 2020 was abnormal and subsequent diagnosticmammogram and ultrasound study showed 11 x 10 x 10 mm shadowing lesion at 1 o'clock position in theright breast. She had a stereotactic core biopsy on 12/22/2020 with confirmation of lobular carcinoma. She underwent lumpectomy and sentinel biopsy on 02/15/2021 and the final pathology report confirmedstage T2 N0 M0 invasive lobular carcinoma, Odan[place] grade 2 with associated ductal carcinoma in [...] spine T score - 2.1, left femoral neckT score -1.7, right femoral neck T score [...] was started on Arimidex May 2021 (at [place]). Did not tolerated/t hot flashes, soswitched to letrozole 08/11/2021 -- Will continue letrozole [...] for abdominal pain, constipation, decreased appetite,diarrhea, nausea orvomiting. Scheduled screening colonoscopy 01/11/2023 and we will [...] scar. No lumps or skin changes noted, nonipple discharge or deviation. No axillary adenopathy RESPIRATORY: [...] labs for review - Impressions Imaging from [facility] reviewed: 11/28/2022: 3D diagnostic mammogram Breast [...] and noncalcified nodules scattered within the lungs. Nonew nodules or overtly suspicious nodules. 2. 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 6 sentinel nodes were negative for metastatic disease in the primary tumor measured 4.5 cm in diameter. Her margins of resection were positive inferiorly and posteriorlyand subsequently, she had re-resection of the tumor [...] of May [address] Lopes at [place]. 07/20/2021: Stopped anastrozole due to severe hot [...] modalities we could also try to alleviate hotflashes as well. She was not having this prior to initiation of anastrozole. 08/11/2021 phone call with improvement in hot flashes. Patient switched to letrozole at this time. 10/20/2021: She continues to tolerate the letrozole ok with less frequent hot flashes. Otherwise she denies any new complaints. No new lumps or skin changes on self-exam noted. She will have her mammogram done this month at [place] and will have results sent to us. [...] records therefore we will order DEXA scan today.She has advised to take supplemental calcium and [...] letrozole without worsening hot flashes or joint complaints.Her baseline DEXA shows normal bone density. She [...] mammogram will be due in November 2022. Shewill follow-up with Dr. Hoffmann in 6 months, [...] change of likely granulomatous nodules. She should notrequire routine chest imaging. Her clinical breast exam and mammogram shows no evidence of recurrence. Continue medical oncology follow-up every 6 months on letrozole therapy for goal of 5 to 7 yearsof adjuvant therapy (I would encourage closer to [...] vitamin D recommendations and consider addition of bisphosphonatetherapy. 04/13/2022: Baseline DEXA done 01/18/2022 with normal bone density. Will plan for repeat in January 2024.We again recommended initiation of calcium and vitamin [...] 08/11/2021. Continue for total 5 to 7-year courseof aromatase inhibitor therapy. - Chemo Plan Chemo Plan (Dose, Rate, Freq): Letrozole 2.5 mg daily since July 2021. Continue for 5 to 7-year course. Goal of Treatment: Curative - Time with Patient Time Spent with Patient (Follow Up Visit): 35 minutes - Moderate complexity 30 visit follow-up examand multiple outside imaging studies. Coordination of Care & Counseling Time: Greater than 50% of time spent with patient was for coordination of care (as documented) and mtbs-dp-byhb counseling of patient and/or family. Dictated By: Chiara Hoffmann MD DD/ Signed By: <Electronically signed by MD Chiara Hoffmann> 12/28/22 0959 [facility] Work Phone: 1(273) 742-664905-19-2023 NoteChief Complaint consultation for screening colonoscopy HPI [...] Primary malignant neoplasm of (more content not included)...[facility] MemorialComment on above:Result Comment: Electronically Signed By: Salazar MUNIZ MD\.br\Date and Time Signed: 12/02/22 14:59 [id number] Reason for referral (narrative)* Reason 12/02/22 Referral for screening colonoscopy in asymptomatic high risk patient. Diagnosis 1 Encounter for screen ing colonoscopy (Z12.11) Referral Organization [facility] samuel Referring Provider First Name Singh Referring Provider Last Name Yudi Referring Provider Specialty Internal Me dicine Referred Organization [facility] Referred Provider Salazar Muniz Referred Address [address], [place],[address] Referred Provider Specialty Surgery Referral Priority Routine Referral Appointment Date 2022-12-02 General Notes Kira Tran 12:38:54 PM >received today Kira Tran 11/03/2022 12:41:54 PM >notes locked, attachments made, referral faxed Kira Tran 11/10/2022 11:14:17 AM >faxed first attempt letter Kira Tran 11/14/2022 04:13:52 PM >received fax with appt date Kira Tran 12/08/2022 06:10:37 AM >notes in chart and reviewed. closing referralClinical [id number] [facility] Other 04-19-2023 Evaluation note* Encounter Date Diagnosis Assessment Notes Treatment Notes Treatment Clinical Notes Oct, Type 2 diabetes paige itus with hyperglycemia, without long-term current use of [...] which are reviewed at the office visit. Oct,Wellness examination (ICD-10 - Z00.00) Oct,Essential hypertension (ICD-10 - I10)This patient is instructed to consume a healthy, low-fat, low-salt diet. They are also encouraged to continue exercise to achieve/maintain a normal BMI. Oct,Hyperlipidemia type II (ICD-10 - E78.01)Diet and exercise with continued statin therapy. Oct,ulmonary nodule, right (ICD-10 - R91.1)CT: 6-10mm RUL, RML 08/2021 CT: stable, decreasing GGO 11/2021 Continue surveillance w/ CT scans Oct,Malignant neoplasm of upper-inner quadrant of right female breast (ICD-10 - C50.211)Continue diagnostic mammogram Oct,Estrogen receptor positive status [ER+] (ICD-10 - Z17.0) Oct,Encounter for screening colonoscopy (ICD-10 - Z12.11)Asymptomatic patient w/ increased risk due to family hx of CRC. Recommend colonoscopy. [facility] Other 03-06-2023 Evaluation note* Encounter Date Diagnosis Assessment Notes Treatment Notes Treatment Clinical Notes Sep, Wellness examination (ICD-10 - Z 00.00) [facility] Other 03-03-2023 Evaluation note* Encounter Date Diagnosis Assessment Notes Treatment Notes Treatment Clinical Notes Sep, Acute non-recurrent maxillary si nusitis (ICD-10 - J01.00) Instructed to use Robitussin or Mucinex for cough, saline or Flonase NS for congestion, Tylenol forpain and fever. Sep,Encounter by telehealth for suspected COVID-19 (ICD-10 - Z20.822) Aware of quarantine guidelines. Retest in 2 days if symptoms worsen [facility] Other 12-14-2022 Progress note Author Giovanna Shelton [facility] June 29, 2022 9:03amNote Date/TimeDecemb2021 8:52[facility] [place] [address] Hem/Onc Follow Up Note - OP Signed Patient: Renuka Caceres MR#: [id number] : 1960 Acct:[id number] Age/Sex: 61 / F Type: REG RCR Copies to: MD Singh Greene DO James E Fanning, MD~ Subjective Date/Time of Service: Date of Service: 06/29/2022 Time of Service: 08:46 Chief Complaint: Patient is here for a 3 month follow up for right breast cancer. Taking Letrozole,voices no concerns. HPI: 06/29/2022: Renuka is here for follow-up for her right breast cancer on letrozole. She continuesto do well without major joint complaints. She does note her hot flashes have increased since she started taking her diuretic in themornings about a month ago, but these remain tolerable. Otherwise no new complaints. Her energy is stable. She denies new lumps or skin changes on self- exam each month, and none noted on my [...] on letrozole therapy for T2 N0 M0 ER/NC positivebreast cancer, status postlumpectomy in February 2021 with reexcision to negative margins.. She completed adjuvant radiation therapy March-April 2021. She started anastrozole in May 2022 butdid not tolerate this well and stopped taking it 07/20/2021. She was changed to letrozole08/11/2021 and tolerates this well without significant hot flashes, myalgias, arthralgias. She has no skin changes, masses, or pain of the breast on self-exam. We reviewed her mammogram from [facility] performed 10/06/2021 which returned with heterogeneously dense breasts but no significant suspicious abnormalities and postsurgical changes in the right upper inner quadrant. She has not had baseline DEXA scan and we ordered this today. Advised to start calcium and vitamin D until DEXA findings which shewill be contacted with afterreview. Next follow-up with [...] continues with hot flashes, but these are moretolerable/less frequent and do not wake her up throughout the night. Otherwise she denies any new symptoms and feels well overall. She denies any new lumps or skin changes on self-exam. Her last breast exam was June 2021. She is due for her mammogram this month and has these done at [place]. We will get this record once it's completed. -- She will follow-up in [address] Hoffmann for exam and to follow-up on symptoms. She will call in sooner if needed. We will try to coordinate her next follow-up to be same day as her radiationfollow-up appointment. 07/20/2021: Renuka presents in follow-up today July 20, 2021. She is having intractable hot flashes and night that keeps her up. She is on anastrozole. Renuka presented with breast cancer having had lumpectomy in January 31, 2021. She had a 4.5 cm invasive lobular breast cancer, 0 of 6 lymph nodes positive. ER and NC was positive, H ER 2 -. [facility] genetic testing was negative for BRCA 1 and 2. Oncotype DX showed low risk disease. She was started on radiation March 2021. Her family doctor is Dr. Juan Fowler and she was operated on by Dr. Salazar Kimble. NUIQSUT: 60-year-old post-menopausal female- had menopause at age 53 and she did not takeany HRT. She is a non-smoker and drinks alcohol occasionally and she is Ab0. She had been asymptomatic but gets her regular screening mammograms which previously had shown a suspicious area in the right breast wasbeing followed up. 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 6 sentinel nodes were negative for metastatic disease in the primary tumor measured 4.5 cm in diameter. Her margins of resection were positive inferiorly and posteriorly a nd subsequently, she had re-resection of the tumor bed on 02/23/2021. The finalsurgical margins wereall negative and there was no residual carcinoma [...] was started on Arimidex May 2021 (at [place]). Did not tolerated/t hot flashes, soswitched to letrozole 08/11/2021 -- Will continue letrozole [...] PO BID 03/11/21 [History Confirmed 06/29/22] hyaluronic ebvrsr-wvzunabpt-cdva vera extract topical gel (RadiaPlexRx topical gel) [...] scar. No lumps or skin changes noted, nonipple discharge or deviation. No axillary adenopathy RESPIRATORY: [...] stage T2 N0 M0 invasive lobular carcinoma, Odanah grade 2 with associated ductal carcinoma in [...] margins of resection were positive inferiorly and posteriorlyand subsequently, she had re-resection of the tumor [...] of May [address] Lopes at [place]. 07/20/2021: Stopped anastrozole due to severe hot [...] modalities we could also try to alleviate hotflashes as well. She was not having this prior to initiation of anastrozole. 08/11/2021 phone call with improvement in hot flashes. Patient switched to letrozole at this time. 10/20/2021: She continues to tolerate the letrozole ok with less frequent hot flashes. Otherwise she denies any new complaints. No new lumps or skin changes on self-exam noted. She will have her mammogram done this month at [place] and will have results sent to us. [...] records therefore we will order DEXA scan today.She has advised to take supplemental calcium and [...] letrozole without worsening hot flashes or joint complaints.Her baseline DEXA shows normal bone density. She [...] mammogram will be due in November 2022. Shewill follow-up with Dr. Hoffmann in 6 months, sooner as needed. (2) Osteoporosis screening DEXA ordered for osteoporosis screening on aromatase inhibitor therapy. We discussed minimum calcium 500 mg with 400 international units vitamin D daily. If she has evidence of osteopenia or osteoporosis we may change her calcium and vitamin D recommendations and consider addition of bisphosphonatetherapy. 04/13/2022: Baseline DEXA done 01/18/2022 with normal bone density. Will plan for repeat in January 2024.We again recommended initiation of calcium and vitamin [...] 08/11/2021. Continue for total 5 to 7-year courseof aromatase inhibitor therapy. 06/29/2022: Hot flashes increased over the last month d/t diuretic dosing time change. These remaintolerable overall - Chemo Plan Chemo Plan (Dose, Rate, Freq): Letrozole 2.5 mg daily since July 2021. Continue for 5 to 7-year course. Goal of Treatment: Curative - Time with Patient Time Spent with Patient (Follow Up Visit): 25 minutes Coordination of Care & Counseling Time: Greater than 50% of time spent with patient was for coordination of care (as documented) and fibf-bg-gvco counseling of patient and/or family. Dictated By: Giovanna Shelton APRN DD/ 0846 Signed By: <Electronically signed by YFERI Shelton> 06/29/22 0903 [facility] Work Phone: [phone](101) 985-191609-28-2022 Progress note Author Giovanna Shelton [facility] April 13, 2022 9:15amNote Date/TimeSeptember 2021 8:39[facility] [place] [address] Hem/Onc Follow Up Note - OP Signed Patient: Renuka Caceres MR#: [id number] : 1960 Acct:[id number] Age/Sex: 61 / F Type: REG RCR [...] on letrozole therapy for T2 N0 M0 ER/NC positivebreast cancer, status postlumpectomy in February 2021 with reexcision to negative margins.. She completed adjuvant radiation therapy March-April 2021. She started anastrozole in May 2022 butdid not tolerate this well and stopped taking it 07/20/2021. She was changed to letrozole 08/11/2021 and tolerates this well without significant hot flashes, myalgias, arthralgias. She has no skin changes, masses, or pain of the breast on self- exam. We reviewed her mammogram from [facility] performed 10/06/2021 which returned with heterogeneously dense breasts but no significant suspicious abno rmalities and postsurgical changes in the right upper inner quadrant. She has not had baseline DEXAscan and we ordered this today. Advised to [...] continues with hot flashes, but these are moretolerable/less frequent and do not wake her up throughout the night. Otherwise she denies any new symptoms and feels well overall. She denies any new lumps or skin changes on self-exam. Her last breast exam was June 2021. She is due for her mammogram this month and has these done at [place]. We will get this record once it's completed. -- She will follow-up in [address] Hoffmann for exam and to follow-up on symptoms. She will call in sooner if needed. We will try to coordinate her next follow-up to be same day as her radiationfollow-up appointment. 07/20/2021: Renuka presents in follow-up today July 20, 2021. She is having intractable hot flashes and night that keeps her up. She is on anastrozole. Renuka presented with breast cancer having had lumpectomy in January 31, 2021. She had a 4.5 cm invasive lobular breast cancer, 0 of 6 lymph nodes positive. ER and NC was positive, H ER 2 -. [facility] genetic testing was negative for BRCA 1 and 2. Oncotype DX showed low risk disease. She was started on radiation March 2021. Her family doctor is Dr. Juan Fowler and she was operated on by Dr. Salazar Kimble. NUIQSUT: 60-year-old post-menopausal female- had menopause at age 53 and she did not takeany HRT. She is a non-smoker and drinks alcohol occasionally and she is Ab0. She had been asymptomatic but gets her regular screening mammograms which previously had shown a suspicious area in the right breast wasbeing followed up. 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 6 sentinel nodes were negative for metastatic disease in the primary tumor measured 4.5 cm in diameter. Her margins of resection were positive inferiorly and posteriorly a nd subsequently, she had re-resection of the tumor bed on 02/23/2021. The finalsurgical margins wereall negative and there was no residual carcinoma [...] was started on Arimidex May 2021 (at [place]). Did not tolerated/t hot flashes, soswitched to letrozole 08/11/2021 -- Will continue letrozole [...] PO BID 03/11/21 [History Confirmed 04/13/22] hyaluronic swopbj-ajalxtwfn-hrqy vera extract topical gel (RadiaPlexRx topical gel) [...] stage T2 N0 M0 invasive lobular carcinoma, Odanah grade 2 with associated ductal carcinoma in [...] margins of resection were positive inferiorly and posteriorlyand subsequently, she had re-resection of the tumor [...] of May [address] Lopes at [place]. 07/20/2021: Stopped anastrozole due to severe hot [...] modalities we could also try to alleviate hotflashes as well. She was not having this prior to initiation of anastrozole. 08/11/2021 phone call with improvement in hot flashes. Patient switched to letrozole at this time. 10/20/2021: She continues to tolerate the letrozole ok with less frequent hot flashes. Otherwise she denies any new complaints. No new lumps or skin changes on self-exam noted. She will have her mammogram done this month at [place] and will have results sent to us. [...] records therefore we will order DEXA scan today.She has advised to take supplemental calcium and [...] letrozole without worsening hot flashes or joint complaints.Her baseline DEXA shows normal bone density. She [...] vitamin D recommendations and consider addition of bisphosphonatetherapy. 04/13/2022: Baseline DEXA done 01/18/2022 with normal bone density. Will plan for repeat in January 2024.We again recommended initiation of calcium and vitamin D daily while on letrozole. (3) Encounter for monitoring aromatase inhibitor therapy Initial poor tolerance of anastrozole therapy started in early July 2021. She now has nearly resolved hot flashes on letrozole 2.5 mg daily started 08/11/2021. Continue for total 5 to 7-year courseof aromatase inhibitor therapy. - Chemo Plan Chemo Plan (Dose, Rate, Freq): Letrozole 2.5 mg daily since July 2021. Continue for 5 to 7-year course. Goal of Treatment: Curative - Time with Patient Time Spent with Patient (Follow Up Visit): 25 minutes Coordination of Care & Counseling Time: Greater than 50% of time spent with patient was for coordination of care (as documented) and bttk-sy-ewby counseling of patient and/or family. Dictated By: Giovanna Shelton APRN DD/ 5 Signed By: <Electronically signed by YEFRI Shelton> 04/13/2215 [facility] Work Phone: 1(486) 788-242009-01-2022 Evaluation note* Encounter Date Diagnosis Assessment Notes Treatment Notes Treatment Clinical Notes Mar, Acute pain of right knee (ICD-10 - M25.561) Mar,rthritis of right knee (ICD-10 - M17.11)Radiographs reviewed with patient. The patient is suffering [...] as well as use of voltaren gel. [facility] Other 06-30-2022 Progress note Author Cihara Hoffmann [facility] January 13, 2022 12:36pmNote Date/TimeJune 2021 8:[address] [place] [address] Cancer Center at [address] [address] Hem/Onc Follow Up Note - OP Signed Patient: Renuka Caceres MR#: [id number] : 1960 Acct:[id number] Age/Sex: 61 / F Type: REG RCR [...] on letrozole therapy for T2 N0 M0 ER/NC positivebreast cancer, status postlumpectomy in February 2021 with reexcision to negative margins.. She completed adjuvant radiation therapy March-April 2021. She started anastrozole in May 2022 butdid not tolerate this well and stopped taking it 07/20/2021. She was changed to letrozole08/11/2021 and tolerates this well without significant hot flashes, myalgias, arthralgias. She has no skin changes, masses, or pain of the breast on self-exam. We reviewed her mammogram from [facility] performed 10/06/2021 which returned with heterogeneously dense breasts but no significant suspicious abnormalities and postsurgical changes in the right upper inner quadrant. She has not had baseline DEXA scan and we ordered this today. Advised to start calcium and vitamin D until DEXA findings which shewill be contacted with afterreview. Next follow-up with nurse practitioner in 3 months, 6 months with or. Moderate complexity visit over 25 minutes for [...] continues with hot flashes, but these are moretolerable/less frequent and do not wake her up throughout the night. Otherwise she denies any new symptoms and feels well overall. She denies any new lumps or skin changes on self-exam. Her last breast exam was June 2021. She is due for her mammogram this month and has these done at [place]. We will get this record once it's completed. -- She will follow-up in [address] Hoffmann for exam and to follow-up on symptoms. She will call in sooner if needed. We will try to coordinate her next follow-up to be same day as her radiationfollow-up appointment. 07/20/2021: Renuka presents in follow-up today July 20, 2021. She is having intractable hot flashes and night that keeps her up. She is on anastrozole. Renuka presented with breast cancer having had lumpectomy in January 31, 2021. She had a 4.5 cm invasive lobular breast cancer, 0 of 6 lymph nodes positive. ER and NC was positive, H ER 2 -. [facility] genetic testing was negative for BRCA 1 and 2. Oncotype DX showed low risk disease. She was started on radiation March 2021. Her family doctor is Dr. Juan Fowler and she was operated on by Dr. Salazar Kimble. NUIQSUT: 60-year-old post-menopausal female- had menopause at age 53 and she did not takeany HRT. She is a non-smoker and drinks alcohol occasionally and she is Ab0. She had been asymptomatic but gets her regular screening mammograms which previously had shown a suspicious area in the right breast wasbeing followed up. Her screening mammogram in October [...] of resection were positive inferiorly and posteriorly a nd subsequently, she had re-resection of the tumor bed on 02/23/2021. The finalsurgical margins wereall negative and there was no residual carcinoma [...] was started on Arimidex May 2021 (at [place]). Did not tolerated/t hot flashes, soswitched to letrozole 08/11/2021 -- Will continue letrozole [...] for abdominal pain, constipation, decreased appetite,diarrhea, nausea orvomiting. GENITOURINARY: Negative for dysuria and hematuria. ENDOCRINE: [...] PO BID 03/11/21 [History Confirmed 01/13/22] hyaluronic pzlmlz-vojskezpy-gugf vera extract topical gel (RadiaPlexRx) 1 applicTOPICAL [...] margins of resection were positive inferiorly and posteriorlyand subsequently, she had re-resection of the tumor [...] of May [address] Lopes at [place]. 07/20/2021: Stopped anastrozole due to severe hot [...] modalities we could also try to alleviate hotflashes as well. She was not having this prior to initiation of anastrozole. 08/11/2021 phone call with improvement in hot flashes. Patient switched to letrozole at this time. 10/20/2021: She continues to tolerate the letrozole ok with less frequent hot flashes. Otherwise she denies any new complaints. No new lumps or skin changes on self-exam noted. She will have her mammogram done this month at [place] and will have results sent to us. [...] records therefore we will order DEXA scan today.She has advised to take supplemental calcium and [...] vitamin D recommendations and consider addition of bisphosphonatetherapy. (3) Encounter for monitoring aromatase inhibitor therapy [...] for coordination of care (as documented) and dwry-ok-twid counseling of patient and/or family. Dictated By: Chiara Hoffmann MD DD/ 0832 Signed By: <Electronically signed by MD Chiara Hoffmann> 01/13/22 1236 [facility] Work Phone: 1(829) 840-966306-30-2022 Progress note Author Darshan Solomon [facility] January 13, 2022 9:17amNote Date/TimeJune 2021 8:59[facility] [place] [address] Rad Onc Follow Up Note - OP Signed Patient: Renuka Caceres MR#: [id number] : 1960 Acct:[id number] Age/Sex: 61 / F Type: REG RCR [...] pathological stage pT2 pN0 M0, ER positive, NC positive andHER-2/rikki negative, stage Ib. Patient completed breast conserving [...] right breast. She will continue to follow withher primary care physician for screening mammography as well as medical oncology due to her ongoingendocrine therapy so we will discharge her today in their care. We are happy to see her back at any time if there is a need for additional radiation or radiation related concerns. Follow Up Note - Narrative 60-year-old F with stage T2 N0 M0 invasive lobular carcinoma, Odanah grade 2with associated ductal carcinoma in situ and lobular carcinoma in situ. She underwent lumpectomy and sentinel biopsy on 02/15/2021 and the final pathologyreport confirmed stage T2 N0 M0 invasive lobular carcinoma, Odanah grade 2 with associated ductal carcinoma in situand lobular carcinoma in situ. 6 sentinel nodes were negative for metastatic disease in the primarytumor measured 4.5 cm in diameter. Her margins [...] consistent with the prior radiation field. There isno significant radiation fibrosis. Surgical incisions are well-healed. There is no residual erythema nor desquamation. No palpable mass or abnormality. Contralateral breast within normal limits. Abdomen: Nonacute MSK: Extremities within normal limits Dictated By: Darshan Solomon MD DD/ 0858 Signed By: <Electronically signed by Darshan Solomon MD> 01/13/22 0917 [facility] Work Phone: 1(326) 261-423806-19-2022 NotePROCEDURE: XR FINGER MIN 2 VIEWS HISTORY: [...] Electronically authenticated by: PABLO MORRIS Date: 2022-01-02 10:32[facility]04-06-2022 Progress note Author Giovanna Shelton [facility] October 20, 2021 12:49pmNote Date/TimeApr2021 9:21[facility] [place] [address] Hem/Onc Follow Up Note - OP Signed Patient: Renuka Caceres MR#: [id number] : 1960 Acct:[id number] Age/Sex: 60 / F Type: REG RCR [...] continues with hot flashes, but these are moretolerable/less frequent and do not wake her up throughout the night. Otherwise she denies any new symptoms and feels well overall. She denies any new lumps or skin changes on self-exam. Her last breast exam was June 2021. She is due for her mammogram this month and has these done at [place]. We will get this record once it's completed. -- She will follow-up in [address] Hoffmann for exam and to follow-up on symptoms. She will call in sooner if needed. We will try to coordinate her next follow-up to be same day as her radiationfollow-up appointment. 07/20/2021: Renuka presents in follow-up today July 20, 2021. She is having intractable hot flashes and night that keeps her up. She is on anastrozole. Renuka presented with breast cancer having had lumpectomy in January 31, 2021. She had a 4.5 cm invasive lobular breast cancer, 0 of 6 lymph nodes positive. ER and NC was positive, H ER 2 -. [facility] genetic testing was negative for BRCA 1 and 2. Oncotype DX showed low risk disease. She was started on radiation March 2021. Her family doctor is Dr. Juan fowler and she was operated on by Dr. Salazar Kimble. NUIQSUT: 60-year-old post-menopausal female- had menopause at age 53 and she did not takeany HRT. She is a non-smoker and drinks alcohol occasionally and she is Ab0. She had been asymptomatic but gets her regular screening mammograms which previously had shown a suspicious area in the right breast wasbeing followed up. Her screening mammogram in October [...] of resection were positive inferiorly and posteriorly a nd subsequently, she had re-resection of the tumor bed on 02/23/2021. The finalsurgical margins wereall negative and there was no residual carcinoma [...] was started on Arimidex May 2021 (at [place]). 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 6 sentinel nodes were negative for metastatic disease in the primary tumor measured 4.5 cm in diameter. Her margins of resection were positive inferiorly and posteriorlyand subsequently, she had re-resection of the tumor [...] of May [address] Lopes at [place]. 07/20/2021: Stopped anastrozole due to severe hot [...] modalities we could also try to alleviate hotflashes as well. She was not having this prior to initiation of anastrozole. 08/11/2021 phone call with improvement in hot flashes. Patient switched to letrozole at this time. 10/20/2021: She continues to tolerate the letrozole ok with less frequent hot flashes. Otherwise she denies any new complaints. No new lumps or skin changes on self-exam noted. She will have her mammogram done this month at [place] and will have results sent to us. [...] for coordination of care (as documented) and oytn-cr-imfg counseling of patient and/or family. Dictated By: Giovanna Shelton APRN DD/ 0 Signed By: <Electronically signed by YEFRI Shelton> 10/20/21 1249 [facility] Work Phone: 1(404) 800-417801-04-2022 Progress note Author Daniel Lopes [facility] July 20, 2021 10:06amNote Date/TimeJanuary 2021 9:54[facility] at [address] [address] Hem/Onc Follow Up Note - OP Signed Patient: Renuka Caceres MR#: [id number] : 1960 Acct:[id number] Age/Sex: 60 / F Type: REG RCR [...] of 6 lymph nodes positive. ER and NC was positive, H ER 2 -. [facility] [...] PO BID 03/11/21 [History Confirmed 07/20/21] hyaluronic vhgxvj-skxmrxyfy-kwba vera extract topical gel (RadiaPlexRx) 1 applicTOPICAL [...] modalities we could also try to alleviate hotflashes as well. She was not having this prior to initiation of anastrozole. I will see her in 3 months. - Time with Patient Coordination of Care & Counseling Time: Greater than 50% of time spent with patient was for coordination of care (as documented) and vkpn-qm-syug counseling of patient and/or family. Dictated By: Daniel Lopes MD DD/ 3 Signed By: <Electronically signed by MD Daniel Lopes> 07/20/21 1006 [facility] Work Phone: 1([phone]) 278-273812-09-2021 Progress note Author Thiago Durbin [facility] June 24, 2021 10:35amNote Date/TimeDecember 2020 10:26[facility] [place] [address] Rad Onc Follow Up Note - OP Signed Patient: Renuka Caceres MR#: [id number] : 1960 Acct:[id number] Age/Sex: 60 / F Type: REG RCR Copies to: DO Daniel Calvert MD Michael R Nill, MD FACS~ Subjective - Service Date/Time Date: 06/24/21 Time: 10:15 - Diagnosis Invasive lobular carcinoma of the upper medial quadrant of the right breast, grade 1 with associated DCIS and LCIS, pathological stage pT2 pN0 M0, ER positive, NC positive and HER-2/rikki negative, stage Ib. - [...] 10x 10 mm shadowing lesion at 1 o'clockposition in the right breast. She had a stereotactic core biopsy on 12/22/2020 with confirmation of lobular carcinoma. She underwent lumpectomy and sentinel biopsy on 02/15/2021 and the final pathologyrep ort confirmed stage T2 N0 M0 invasive lobular [...] there was no residual carcinoma identified. Patient's OncotypeDX score is [address] Lopes did [...] has a healthy looking, alert, oriented pleasant femalewho does not appear to be in any acute distress. HEENT examination revealed no cranial neuropathy. No palpable cervical or supraclavicular adenopathy. Local examination of right breast shows a well-he aledsurgical incision in the medial inner quadrant of the right breast and there is mild to moderate residual erythema from her recent radiation therapy treatments as expected. No open areas are noted. She has no palpable masses in the right breast or axilla. Left breast and axilla are also withoutany masses. She has no right arm swelling. Her lungs are clear to auscultation. Cardiac examinationis unremarkable. She has no spinal or paraspinal [...] pathological stage pT2 pN0 M0, ER positive, NC positive and HER-2/rikki negative, stage Ib. Assessment [...] quadrant, stage pT2 pN0 M0, ER positive, NC positive and HER-2 negative, stage Ib had lumpectomy and sentinel biopsy followed by primary radiotherapy treatment to the right breast for 6 weeks. Treatment was completed 4 weeks ago and she is doing well clinically. Most of heracute radiation reactions have subsided completely. She has been started on anastrozole by Dr. Lopes and she has an appointment to see him again in a month. On today's examination, there is no evidence of any residual or recurrent disease. I shall plan to see her back in 6 months for her next sche duled radiation oncology follow-up. Total Time Spent with Patient: Less than 30 minutes I spent 20 minutes njqw-zk-bocv time with this patient and more than [...] signed by Thiago Durbin MD> 06/24/21 1035 [facility] Work Phone: 1(770) 282-769609-21-2021 Progress note Author Daniel Lopes [facility] April 06, 2021 9:12amNote Date/TimeSept2020 9:[facility] [address] Hem/Onc Follow Up Note - OP Signed Patient: Renuka Caceres MR#: [id number] : 1960 Acct:[id number] Age/Sex: 60 / F Type: REG RCR Copies to: DO Daniel Calvert MD~ Subjective Date/Time of Service: Date of Service: 04/06/2021 Time of Service: 09:07 Chief Complaint: Patient is here today for a visit for [facility]oplasm [facility]. HPI: Renuka presents in follow-up today April 06, 2021. [facility] genetic testing was negative for BRCA 1 and 2. Oncotype DX showed low risk disease. She will be getting simulation today and starting radiation. She is from [facility] and will follow up with me in 2 months to start adjuvant radiationtherapy. This is a very nice 60-year-old female with a lobular carcinoma of the breast who I saw at [facility]. Oncotype DX was done which showed lowrisk disease and no indications for chemotherapy. Because of strong family history, we did do [facility] genetic testing which was negative. She will be getting radiation simulation today April 06, 2021 and then follow-up with me in 2 months to start adjuvant hormonal therapy at [facility]. Subjective/ROS - Narrative: Negative review of [...] and see me in 2 months in [place] to start adjuvant hormonal therapy with an aromatase similar for 5 years. - Time with Patient Coordination of Care & Counseling Time: Greater than 50% of time spent with patient was for coordination of care (as documented) and uyud-if-axnj counseling of patient and/or family. Dictated By: Daniel Lopes MD DD/ 6 Signed By: <Electronically signed by MD Daniel Lopes> 04/06/21911 [facility] Work Phone: [phone]) 600-102408-31-2021 Consult note Author Thiago Durbin [facility] March 16, 2021 3:14pmNote Date/TimeAugust 2020 11:51[facility] [address] Rad Onc Consult Note - OP Signed with Addenda Patient: Renuka Caceres MR#: [id number] : 1960 Acct:[id number] Age/Sex: 60 / F Type: REG RCR [...] pathological stage pT2 pN0 M0, ER positive, NC positive and HER-2/rikki negative, stage Ib. Chief [...] screening mammogram in October 2020 was abnormal andsubsequent diagnostic mammogram and ultrasound study showed 11 x 10 x 10 mm shadowing lesion at 1 o'clock position in the right breast. She had a stereotactic core biopsy on 12/22/2020 with confirmation of lobular carcinoma. She underwent lumpectomy and sentinel biopsy on 02/15/2021 and the final pathology report confirmed stage T2 N0 M0 invasive lobular carcinoma, Odanah grade 2 with associated ductal carcinoma in [...] Dr. Lopes regarding her genetic testing prior toinitiation of her adjuvant radiation therapy treatments to the right breast. Patient is healing well from her surgery and has no complaints of headaches, nausea, neck lumps, breast or axillary lumps,cough, back pain, abdominal discomfort, urinary or bowel [...] Local examination of right breast shows a well- healed surgical incision in the medial inner quadrant [...] Her abdomen is soft,non-tender and there is nopalpable mass or organomegaly. Pelvic and rectal examination not done today. She has +1 bilateral feet edema and advised her to use the support stockings. On neurological examination, there is no gross motor, sensory or cerebellar deficit. Results Impression: Invasive lobular carcinoma of the upper medial quadrant of the right breast, grade 1 with tubular differentiation, pathological stage pT2 pN0 M0, ER positive, NC positive and HER-2/rikki negative, stage Ib. Assessment [...] quadrant, stage pT2 pN0 M0, ER positive, NC positive and HER-2 negative, stage Ib had lumpectomy and sentinel biopsy in 6 x-ray nodes were negative for metastatic disease. Her Oncotype DX score is [address] Lopes does not plan any systemic chemotherapy. Patient is a fairly strong family history of breast cancer including her sister, cousin and an aunt. I shall talk to Dr. Lopes regarding ordering a genetic testing prior to initiation of her breast radiation. If thegenetic testing is negative, patient will be a candidate for primary radiation therapy treatment tothe right breast for 4 weeks as an outpatient. Pros and cons of radiotherapy treatments were discussed in detail and informed consent will be signed prior to initiation of her treatments. Post radiation, she will be candidate for hormone treatments under Dr. Lopes's care as her ER and NC receptors are strongly positive. Total Time Spent with Patient: Greater than 30 minutes I spent 50 minutes uckr-wh-nbuf time with this patient and more than [...] signed by Thiago Durbin MD> 03/12/21 1422 [facility] Work Phone: Evaluation + Plan note No data available for this section [facility] Diagnosis Onset Date Resolution Status Malignant neoplasm of upper-inner quadra nt of right female breast acute [facility] Work Phone: Evaluation note* Diagnosis Onset Date Resolution Status Malignant neoplasm of upper-inner quadra nt of right female breast [facility] Work Phone: Evaluation note* Diagnosis Onset Date Resolution Status Encounter for monitoring aromatase inhib itor therapy chronicMalignant neoplasm of upper-inner quadrant of right female breastchronic [facility]opor[facility]chronBl[facility] Work Phone: Evaluation noteNo [facility] [employer] Other Evaluation note* Diagnosis Onset Date Resolution Status Diabetes mellitus type 2, controlled, wi thout complications chronicEncounter for monitoring aromatase inhibitor therapychronicMalignant neoplasm of upper-inner quadrant of right female breastchronicOsteoporosis screeningchronicPulmonary nodule less than 6 mm determined by computed tomography of lungchronBluffton [facility] Work Phone: History general Narrative - Reported* Type Description Date Medical History Hypertension Medical Historydiabetes mallitusMedical Historybreast cancerSurgical History tonsillectomySurgical HistoryC sectionSurgical Historyleft ORIF by [employer] [facility] Other Hisiwgn general Narrative - Reported* Type Description Date Medical History Breast cancer, right Medical HistoryPulmonary nodule, rightMedical HistoryMild obesityMedical History IFG (impaired fasting glucose)Medical HistoryEssential hypertensionMedical HistoryHyperlipidemia type IIMedical HistoryTinea corporisMedical HistoryPlantar fasciitis, leftMedical HistoryContracture of left ankleMedical History Lumbosacral spondylosis with radiculopathyMedical HistoryChronic seasonal allergic rhinitis due to pollenSurgical HistorytonsillectomySurgical HistoryC sectionSurgical Historyleft ORIF by [employer] Other Hiskboj general Narrative - Reported* Type Description Date Medical History Breast cancer, right Medical HistoryPulmonary nodule, rightMedical HistoryMild obesityMedical History IFG (impaired fasting glucose)Medical HistoryEssential hypertensionMedical HistoryHyperlipidemia type IIMedical HistoryTinea corporisMedical HistoryPlantar fasciitis, leftMedical HistoryContracture of left ankleMedical History Lumbosacral spondylosis with radiculopathyMedical HistoryChronic seasonal allergic rhinitis due to pollenSurgical HistorytonsillectomySurgical HistoryC sectionSurgical Historyleft ORIF by Dr. AlemanHospitalization Historysee surgical [facility] Other History general Narrative - Reported* Type Description Date Medical History Breast cancer, right Medical HistoryPulmonary nodule, rightMedical HistoryMild obesityMedical History IFG (impaired fasting glucose)Medical HistoryEssential hypertensionMedical HistoryHyperlipidemia type IIMedical HistoryTinea corporisMedical HistoryPlantar fasciitis, leftMedical HistoryContracture of left ankleMedical History Lumbosacral spondylosis with radiculopathyMedical HistoryChronic seasonal allergic rhinitis due to pollenSurgical HistorytonsillectomySurgical HistoryC sectionSurgical Historyleft ORIF by Dr. Blackwellgical HistoryColonoscopy 12/2022[facility] Other History general Narrative - Reported* Type Description Date Medical History Breast cancer, right Medical HistoryPulmonary nodule, rightMedical HistoryMild obesityMedical History Essential hypertensionMedical HistoryHyperlipidemia type IIMedical HistoryTinea corporisMedical HistoryPlantar fasciitis, leftMedical HistoryContracture of left ankleMedical HistoryLumbosacral spondylosis with radiculopathyMedical History Chronic seasonal allergic rhinitis due to pollenMedical [id number] HistorytonsillectomySurgical HistoryC sectionSurgical Historyleft ORIF by Dr. Blackwellgical HistoryColonoscopy12/2022Hospitalization Historysee surgical [facility] Other Hospital Discharge instructions No data available for this section [facility] note Author Giovanna Shelton [facility] April 13, 2022 9:15amNote Date/TimeSeptember 2021 8:39[facility] [address] [address] Hem/Onc Follow Up Note - OP Signed Patient: Renuka Caceres MR#: [id number] : 1960 Acct:[id number] Age/Sex: 61 / F Type: REG RCR [...] on letrozole therapy for T2 N0 M0 ER/NC positivebreast cancer, status postlumpectomy in February 2021 with reexcision to negative margins.. She completed adjuvant radiation therapy March-April 2021. She started anastrozole in May 2022 butdid not tolerate this well and stopped taking it 07/20/2021. She was changed to letrozole 08/11/2021 and tolerates this well without significant hot flashes, myalgias, arthralgias. She has no skin changes, masses, or pain of the breast on self- exam. We reviewed her mammogram from [facility] performed 10/06/2021 which returned with heterogeneously dense breasts but no significant suspicious abno rmalities and postsurgical changes in the right upper inner quadrant. She has not had baseline DEXAscan and we ordered this today. Advised to start calcium and vitamin D until DEXA findings which she will be contacted with afterreview. Next follow-up with nurse practitioner in 3 months, 6 months with . Moderate complexity visit over 25 minutes for [...] continues with hot flashes, but these are moretolerable/less frequent and do not wake her up throughout the night. Otherwise she denies any new symptoms and feels well overall. She denies any new lumps or skin changes on self-exam. Her last breast exam was June 2021. She is due for her mammogram this month and has these done at [place]. We will get this record once it's completed. -- She will follow-up in [address] Hoffmann for exam and to follow-up on symptoms. She will call in sooner if needed. We will try to coordinate her next follow-up to be same day as her radiationfollow-up appointment. 07/20/2021: Renuka presents in follow-up today July 20, 2021. She is having intractable hot flashes and night that keeps her up. She is on anastrozole. Renuka presented with breast cancer having had lumpectomy in January 31, 2021. She had a 4.5 cm invasive lobular breast cancer, 0 of 6 lymph nodes positive. ER and NC was positive, H ER 2 -. [facility] genetic testing was negative for BRCA 1 and 2. Oncotype DX showed low risk disease. She was started on radiation March 2021. Her family doctor is Dr. Juan Fowler and she was operated on by Dr. Salazar Kimble. NUIQSUT: 60-year-old post-menopausal female- had menopause at age 53 and she did not takeany HRT. She is a non-smoker and drinks alcohol occasionally and she is Ab0. She had been asymptomatic but gets her regular screening mammograms which previously had shown a suspicious area in the right breast wasbeing followed up. Her screening mammogram in October [...] of resection were positive inferiorly and posteriorly a nd subsequently, she had re-resection of the tumor bed on 02/23/2021. The finalsurgical margins wereall negative and there was no residual carcinoma [...] was started on Arimidex May 2021 (at [place]). Did not tolerated/t hot flashes, soswitched to letrozole 08/11/2021 -- Will continue letrozole [...] PO BID 03/11/21 [History Confirmed 04/13/22] hyaluronic arthar-rsvfmxlxo-qnif vera extract topical gel (RadiaPlexRx topical gel) [...] margins of resection were positive inferiorly and posteriorlyand subsequently, she had re-resection of the tumor [...] of May [address] Lopes at [place]. 07/20/2021: Stopped anastrozole due to severe hot [...] modalities we could also try to alleviate hotflashes as well. She was not having this prior to initiation of anastrozole. 08/11/2021 phone call with improvement in hot flashes. Patient switched to letrozole at this time. 10/20/2021: She continues to tolerate the letrozole ok with less frequent hot flashes. Otherwise she denies any new complaints. No new lumps or skin changes on self-exam noted. She will have her mammogram done this month at [place] and will have results sent to us. [...] records therefore we will order DEXA scan today.She has advised to take supplemental calcium and [...] letrozole without worsening hot flashes or joint complaints.Her baseline DEXA shows normal bone density. She [...] vitamin D recommendations and consider addition of bisphosphonatetherapy. 04/13/2022: Baseline DEXA done 01/18/2022 with normal bone density. Will plan for repeat in January 2024.We again recommended initiation of calcium and vitamin D daily while on letrozole. (3) Encounter for monitoring aromatase inhibitor therapy Initial poor tolerance of anastrozole therapy started in early July 2021. She now has nearly resolved hot flashes on letrozole 2.5 mg daily started 08/11/2021. Continue for total 5 to 7-year courseof aromatase inhibitor therapy. - Chemo Plan Chemo Plan (Dose, Rate, Freq): Letrozole 2.5 mg daily since July 2021. Continue for 5 to 7-year course. Goal of Treatment: Curative - Time with Patient Time Spent with Patient (Follow Up Visit): 25 minutes Coordination of Care & Counseling Time: Greater than 50% of time spent with patient was for coordination of care (as documented) and aexh-gx-bipp counseling of patient and/or family. Dictated By: Giovanna Shelton APRN DD/ 5 Signed By: <Electronically signed by YEFRI Shelton> 04/13/2215 [facility] Work Phone: Progress note Author Giovanna Shelton [facility] June 29, 2022 9:03amNote Date/TimeDece2021 8:52[facility] [place] [address] Hem/Onc Follow Up Note - OP Signed Patient: Renuka Caceres MR#: [id number] : 1960 Acct:[id number] Age/Sex: 61 / F Type: REG RCR Copies to: MD Singh Greene DO James E Fanning, MD~ Subjective Date/Time of Service: Date of Service: 06/29/2022 Time of Service: 08:46 Chief Complaint: Patient is here for a 3 month follow up for right breast cancer. Taking Letrozole,voices no concerns. HPI: 06/29/2022: Renuka is here for follow-up for her right breast cancer on letrozole. She continuesto do well without major joint complaints. She does note her hot flashes have increased since she started taking her diuretic in themornings about a month ago, but these remain tolerable. Otherwise no new complaints. Her energy is stable. She denies new lumps or skin changes on self- exam each month, and none noted on my [...] on letrozole therapy for T2 N0 M0 ER/NC positivebreast cancer, status postlumpectomy in February 2021 with reexcision to negative margins.. She completed adjuvant radiation therapy March-April 2021. She started anastrozole in May 2022 butdid not tolerate this well and stopped taking it 07/20/2021. She was changed to letrozole08/11/2021 and tolerates this well without significant hot flashes, myalgias, arthralgias. She has no skin changes, masses, or pain of the breast on self-exam. We reviewed her mammogram from [facility] performed 10/06/2021 which returned with heterogeneously dense breasts but no significant suspicious abnormalities and postsurgical changes in the right upper inner quadrant. She has not had baseline DEXA scan and we ordered this today. Advised to start calcium and vitamin D until DEXA findings which shewill be contacted with afterreview. Next follow-up with nurse practitioner in 3 months, 6 months with or. Moderate complexity visit over 25 minutes for [...] continues with hot flashes, but these are moretolerable/less frequent and do not wake her up throughout the night. Otherwise she denies any new symptoms and feels well overall. She denies any new lumps or skin changes on self-exam. Her last breast exam was June 2021. She is due for her mammogram this month and has these done at [place]. We will get this record once it's completed. -- She will follow-up in [address] Hoffmann for exam and to follow-up on symptoms. She will call in sooner if needed. We will try to coordinate her next follow-up to be same day as her radiationfollow-up appointment. 07/20/2021: Renuka presents in follow-up today July 20, 2021. She is having intractable hot flashes and night that keeps her up. She is on anastrozole. Renuka presented with breast cancer having had lumpectomy in January 31, 2021. She had a 4.5 cm invasive lobular breast cancer, 0 of 6 lymph nodes positive. ER and NC was positive, H ER 2 -. [facility] genetic testing was negative for BRCA 1 and 2. Oncotype DX showed low risk disease. She was started on radiation March 2021. Her family doctor is Dr. Juan Fowler and she was operated on by Dr. Salazar Kimble. NUIQSUT: 60-year-old post-menopausal female- had menopause at age 53 and she did not takeany HRT. She is a non-smoker and drinks alcohol occasionally and she is Ab0. She had been asymptomatic but gets her regular screening mammograms which previously had shown a suspicious area in the right breast wasbeing followed up. 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 6 sentinel nodes were negative for metastatic disease in the primary tumor measured 4.5 cm in diameter. Her margins of resection were positive inferiorly and posteriorly a nd subsequently, she had re-resection of the tumor bed on 02/23/2021. The finalsurgical margins wereall negative and there was no residual carcinoma [...] was started on Arimidex May 2021 (at [place]). Did not tolerated/t hot flashes, soswitched to letrozole 08/11/2021 -- Will continue letrozole [...] PO BID 03/11/21 [History Confirmed 06/29/22] hyaluronic kfvpkp-vueootdtb-iabi vera extract topical gel (RadiaPlexRx topical gel) [...] scar. No lumps or skin changes noted, nonipple discharge or deviation. 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 6 sentinel nodes were negative for metastatic disease in the primary tumor measured 4.5 cm in diameter. Her margins of resection were positive inferiorly and posteriorlyand subsequently, she had re-resection of the tumor [...] of May [address] Lopes at [place]. 07/20/2021: Stopped anastrozole due to severe hot [...] modalities we could also try to alleviate hotflashes as well. She was not having this prior to initiation of anastrozole. 08/11/2021 phone call with improvement in hot flashes. Patient switched to letrozole at this time. 10/20/2021: She continues to tolerate the letrozole ok with less frequent hot flashes. Otherwise she denies any new complaints. No new lumps or skin changes on self-exam noted. She will have her mammogram done this month at [place] and will have results sent to us. [...] records therefore we will order DEXA scan today.She has advised to take supplemental calcium and [...] letrozole without worsening hot flashes or joint complaints.Her baseline DEXA shows normal bone density. She [...] mammogram will be due in November 2022. Shewill follow-up with Dr. Hoffmann in 6 months, sooner as needed. (2) Osteoporosis screening DEXA ordered for osteoporosis screening on aromatase inhibitor therapy. We discussed minimum calcium 500 mg with 400 international units vitamin D daily. If she has evidence of osteopenia or osteoporosis we may change her calcium and vitamin D recommendations and consider addition of bisphosphonatetherapy. 04/13/2022: Baseline DEXA done 01/18/2022 with normal bone density. Will plan for repeat in January 2024.We again recommended initiation of calcium and vitamin [...] 08/11/2021. Continue for total 5 to 7-year courseof aromatase inhibitor therapy. 06/29/2022: Hot flashes increased over the last month d/t diuretic dosing time change. These remaintolerable overall - Chemo Plan Chemo Plan (Dose, Rate, Freq): Letrozole 2.5 mg daily since July 2021. Continue for 5 to 7-year course. Goal of Treatment: Curative - Time with Patient Time Spent with Patient (Follow Up Visit): 25 minutes Coordination of Care & Counseling Time: Greater than 50% of time spent with patient was for coordination of care (as documented) and [id number] counseling of patient and/or family. Dictated By: Giovanna Shelton APRN DD/ [id number] Signed By: <Electronically signed by YEFRI Shelton> 06/29/22 0903 [facility] Work Phone: Progress note Author Chiara Hoffmann [facility] December 28, 2022 9:59amNote Date/TimeJune 2022 9:[address] [place] [address] [place] [address] Hem/Onc Follow Up Note - OP Signed Patient: Renuka Caceres MR#: [id number] : 1960 Acct:[id number] Age/Sex: 62 / F Type: REG RCR Copies to: DO Daniel Calvert MD Michael R Nill, MD FACS~ Subjective Date/Time of Service: Date of Service: 12/28/2022 Time of Service: 09:33 Chief Complaint: Patient is here today for a 6 month follow up visit for breast cancer. She had hermamogram done in November of 2022 HPI: 12/28/2022: [...] was refilled today. [facility] showed heterogeneously dense breasts [...] regularly. Last DEXA scan was normal at [place] 01/18/2022 will be due in 1 year. She will continue letrozole 2.5 mg daily to complete a 5 to 7-year course. Moderate complexity 30-minute visit to review outside imaging and exam. 06/29/2022: Renuka is here for follow-up for her right breast cancer on letrozole. She continuesto do well without major joint complaints. She does note her hot flashes have increased since she started taking her diuretic in themornings about a month ago, but these remain tolerable. Otherwise no new complaints. Her energy is stable. She denies new lumps or skin changes on self- exam each month, and none noted on my [...] on letrozole therapy for T2 N0 M0 ER/NC positivebreast cancer, status postlumpectomy in February 2021 with reexcision to negative margins.. She completed adjuvant radiation therapy March-April 2021. She started anastrozole in May 2022 butdid not tolerate this well and stopped taking it 07/20/2021. She was changed to letrozole08/11/2021 and tolerates this well without significant hot flashes, myalgias, arthralgias. She has no skin changes, masses, or pain of the breast on self-exam. We reviewed her mammogram from [facility] performed 10/06/2021 which returned with heterogeneously dense breasts but no significant suspicious abnormalities and postsurgical changes in the right upper inner quadrant. She has not had baseline DEXA scan and we ordered this today. Advised to start calcium and vitamin D until DEXA findings which shewill be contacted with afterreview. Next follow-up with [...] continues with hot flashes, but these are moretolerable/less frequent and do not wake her up throughout the night. Otherwise she denies any new symptoms and feels well overall. She denies any new lumps or skin changes on self-exam. Her last breast exam was June 2021. She is due for her mammogram this month and has these done at [place]. We will get this record once it's completed. -- She will follow-up in [address] Hoffmann for exam and to follow-up on symptoms. She will call in sooner if needed. We will try to coordinate her next follow-up to be same day as her radiationfollow-up appointment. 07/20/2021: Renuka presents in follow-up today July 20, 2021. She is having intractable hot flashes and night that keeps her up. She is on anastrozole. Renuka presented with breast cancer having had lumpectomy in January 31, 2021. She had a 4.5 cm invasive lobular breast cancer, 0 of 6 lymph nodes positive. ER and NC was positive, H ER 2 -. [facility] genetic testing was negative for BRCA 1 and 2. Oncotype DX showed low risk disease. She was started on radiation March 2021. Her family doctor is Dr. Juan Fowler and she was operated on by Dr. Salazar Kimble. NUIQSUT: Now 62-year-old post-menopausal female- had menopause at age 53 and she did not take any HRT. She is a non-smoker and drinks alcohol occasionally and she is Ab0. She had been asymptomatic but gets her regular screening mammograms which previously had shown a suspicious area in the right breastwas being followed up. Her screening mammogram in October 2020 was abnormal and subsequent diagnosticmammogram and ultrasound study showed 11 x 10 x 10 mm shadowing lesion at 1 o'clock position in theright breast. She had a stereotactic core biopsy [...] spine T score - 2.1, left femoral neckT score -1.7, right femoral neck T score [...] was started on Arimidex May 2021 (at [place]). Did not tolerated/t hot flashes, soswitched to letrozole 08/11/2021 -- Will continue letrozole [...] for abdominal pain, constipation, decreased appetite,diarrhea, nausea orvomiting. Scheduled screening colonoscopy 01/11/2023 and we will [...] scar. No lumps or skin changes noted, nonipple discharge or deviation. No axillary adenopathy RESPIRATORY: [...] labs for review - Impressions Imaging from [facility] reviewed: 11/28/2022: 3D diagnostic mammogram Breast [...] and noncalcified nodules scattered within the lungs. Nonew nodules or overtly suspicious nodules. 2. No lymphadenopathy 01/18/2022: Bone density DEXA scan AP spine T score +0.3, normal Right femur neck femur T score +0.3, normal Follow-up DEXA scan will be due January 2024 Assessment and Plan - TNM Staging Staging: Pathologic stage T2 N0 M0 invasive lobular carcinoma, Odanah grade 2 with associated ductal carcinoma in [...] margins of resection were positive inferiorly and posteriorlyand subsequently, she had re-resection of the tumor [...] of May [address] Lopes at [place]. 07/20/2021: Stopped anastrozole due to severe hot [...] modalities we could also try to alleviate hotflashes as well. She was not having this prior to initiation of anastrozole. 08/11/2021 phone call with improvement in hot flashes. Patient switched to letrozole at this time. 10/20/2021: She continues to tolerate the letrozole ok with less frequent hot flashes. Otherwise she denies any new complaints. No new lumps or skin changes on self-exam noted. She will have her mammogram done this month at [place] and will have results sent to us. [...] records therefore we will order DEXA scan today.She has advised to take supplemental calcium and [...] letrozole without worsening hot flashes or joint complaints.Her baseline DEXA shows normal bone density. She [...] mammogram will be due in November 2022. Shewill follow-up with Dr. Hoffmann in 6 months, [...] change of likely granulomatous nodules. She should notrequire routine chest imaging. Her clinical breast exam and mammogram shows no evidence of recurrence. Continue medical oncology follow-up every 6 months on letrozole therapy for goal of 5 to 7 yearsof adjuvant therapy (I would encourage closer to [...] vitamin D recommendations and consider addition of bisphosphonatetherapy. 04/13/2022: Baseline DEXA done 01/18/2022 with normal bone density. Will plan for repeat in January 2024.We again recommended initiation of calcium and vitamin [...] 08/11/2021. Continue for total 5 to 7-year courseof aromatase inhibitor therapy. - Chemo Plan Chemo Plan (Dose, Rate, Freq): Letrozole 2.5 mg daily since July 2021. Continue for 5 to 7-year course. Goal of Treatment: Curative - Time with Patient Time Spent with Patient (Follow Up Visit): 35 minutes - Moderate complexity 30 visit follow-up examand multiple outside imaging studies. Coordination of Care & Counseling Time: Greater than 50% of time spent with patient was for coordination of care (as documented) and [id number] counseling of patient and/or family. Dictated By: Chiara Hoffmann MD DD/ Signed By: <Electronically signed by MD Chiara Hoffmann> 12/28/2259 [facility] Work Phone: Reason for referral (narrative)* Reason Referral for screeni ng colonoscopy in asymptomatic high risk patient. Diagnosis 1 Encounter for screen ing colonoscopy (Z12.11) Referral Organization [facility] Yudi baker Referring Provider First Name Singh Referring Provider Last Name Yudi Referring Provider Specialty Internal Me humberto Referred Provider Salazar Muniz Referred Provider Specialty Surgery Referral Priority Routine [place] [employer] Other Reason for referral (narrative)No reason for referral information availableAvita [facility] Work Phone: Chief Complaint and Reason for Visit Chief Complaint Rt Breast Cancer Reason for Visit Malignant neoplasm o f upper-inner quadrant of right female breast Chief Complaint Rt Breast Cancer Reason for Visit Malignant neoplasm o f upper-inner quadrant of right female breast Osteoporosis screening Chief Complaint M25.561 Rt Breast CancerReason for VisitEncounter for monitoring aromatase inhibitor therapy Malignant neoplasm [...] 2024 10:38am Primary osteoarthritis of right knee Dec 8:13am Chief Complaint Admit Date Follow Up [...] 2024 10:38am Primary osteoarthritis of right knee Dec 8:13am Chronic venous insufficiency March 242024 8:21am Elevated cholesterol March 24, 2025 8:21am Obesity March 24, 2025 8:21am Primary hypertension March 24, 2025 8:21am Primary osteoarthritis of right knee Mar 8:21am Pulmonary nodule, right March 24, 2 025 8:21am Type 2 diabetes mellitus with hyperglyce denise March 24, 2025 8:21am Malignant neoplasm of upper- inner quadrant of right female breast March 24, 2025 8:21am Chief Complaint Admit Date Amb Documentation February 17, 2025 1:1 7pm R Knee OA February 19, 2025 8:0 0am 4 month f/u March 24, 2025 8:21am Reason for Visit Admit Date Chronic venous insufficiency March 242024 8:21am Elevated cholesterol March 24, 2025 8:21am Obesity March 24, 2025 8:21am Primary hypertension March 24, 2025 8:21am Primary osteoarthritis of right knee Sep 2024 8:21am Pulmonary nodule, right March 24 025 8:21am Type 2 diabetes mellitus with hyperglyce denise March 24, 2025 8:21am Malignant neoplasm of upper- inner quadrant of right female breast March 24, 2025 8:21am Family History No Family History Records Found Relationship Condition Age at Onset Recorded Date/T mary alice sister No pertinent family history Unknown family memberNo pertinent family historyUnknown Advance Directives No Advanced Directives Records Found Advance Directive Response Recorded Date/ Time Advance Directives No March 3:52pm Advance Directive Response Recorded Date/ Time Advance Directives No March 2:52pm Advance Directive Response Recorded Date/ Time Advance Directives No November 08 024 10:32am Summary Purpose Additional Source Comments [...] Durbin MD Attending Provider Active Singh Fowler DOPribryce hospitaly Care ProviderActiveNia Seay ProviderActive Team Status: Active Member Role Status Dates Singh Fowler DO Primary Care Provider Active Nia Seay ProviderActiveFederica Wellington ProviderActive Team Status: Inactive Member Role Status Dates iSngh Fowler DO Primary Care Provider Active Federica Oneal ProviderActive Team Status: Inactive Member Role Status Dates Singh Fowler DO Primary Care Provider Active Start: November 14, 2024 End: November 14jose Fowler DOAttiram ProviderActiveStart: November 14, 2024 End: November 14, 2024 Team Status: Inactive Member Role Status Dates Singh Fowler DO Primary Care Provider Active Start: December 26, 2024 End: December 26, 2024Allegra Arevalo ProviderActiveStart: December 26, 2024 End: December 26, 2024 Team Status: Active Member Role Status Dates Singh Fowler DO Primary Care Provider Active Start: December 26, 2024 Nia Seay ProviderActiveStart: December 26, 2024 Chiara Shun , MDAttending ProviderActiveStart: December 26, 2024 Team Status: Active Member Role Status Dates Singh Fowler DO Primary Care Provider Active Start: January 08, 2025 Luc Bray DOAttending ProviderActiveStart: January 08, 2025 Team Status: Inactive Member Role Status Dates Singh Fowler DO Primary Care Provider Active Start: January 08, 2025 End: January 08, 2025Juwilfrid Bray DOAttending ProviderActiveStart: January 08, 2025 End: January 08, 2025 Team Status: Active Member Role Status Dates Singh Fowler DO Primary Care Provider Active Start: February 17, 2025 Angie Metcalf CMAAttending ProviderActiveStart: February 17, 2025 Team Status: Active Member Role Status Dates Singh Fowler DO Primary Care Provider Active Start: February 19, 2025 Luc Bray DOAttending ProviderActiveStart: February 19, 2025 Team Status: Inactive Member Role Status Dates Singh Fowler DO Primary Care Provider Active Start: March 24, 2025 End: March 24enshaji Fowler DOAttending ProviderActiveStart: March 24, 2025 End: March 24, 2025 Team Status: Active Member Role/Relationship Status Dates Singh Fowler DO Primary Care Provider Active Team Status: Active Member Role/Relationship Status Dates Singh Fowler DO Primary Care Provider Active Start: February 17, 2025 Angie Metcalf CMAAttending ProviderActiveStart: February 17, 2025 Team Status: Inactive Member Role/Relationship Status Dates Singh Fowler DO Primary Care Provider Active Start: February 19, 2025 End: February 19, 2025Luc Bray DOAttending ProviderActiveStart: February 19, 2025 End: February 19, 2025 Team Status: Inactive Member Role/Relationship Status Dates Singh Fowler DO Primary Care Provider Active Start: March 24, 2025 End: March 24enshaji Fowler DOAttending ProviderActiveStart: March 24, 2025 End: March 24, 2025 Goals (unrecognized section and content) Goals may be documented in a n alternate section REASON FOR VISIT (unrecogniz ed section and content) Right Knee [phone] COVID negative, possible sinus infectionNo InformationNo InformationRefill6 MONTH CHECK UPLab ResultsRefillNo InformationNo Information4 month Follow upNo InformationCT scan6 MONTH CHECK UPLab ResultsNo InformationNo Information4 month Follow upsore throat, cough , testing for COVID INFORMATION SOURCE (unrecogn ized section and content) DATE CREATED AUTHOR 11/29/2022 [facility] DATE CREATED AUTHOR AUTHOR'S ORGANIZ ATION 01/13/2023 [facility] DATE CREATED AUTHOR AUTHOR'S ORGANIZ ATION 05/11/2025 The Count Includes The [facility] FOR RECORDS PERTAINING TO PATIENTS WHO [...] BE BASED ON THE PRIMARY CLINICAL RECORDS. [employer] [facility]. provides no warranty or guarantee of the accuracy or completeness of information in this document.
--- NOTE | 2025-05-30 16:55 | XR_ITS ---
The [address] [address] Patient Name: PRICE CACERES MRN: [id number] date: 1960 Sex: F Assigned Patient Location: ED.MAIN Current Patient Location: ED.MAIN Accession/Order Number: [id number] Exam Date: 05/30/2025 16:50 Report Date: 05/30/2025 17:46 At the request of: LOUISA DONOVAN Procedure: XR hand RT min 3V RIGHT HAND - 3 views COMPARISON: None REASON FOR EXAM: Pain FINDINGS: No fractures or dislocation identified. Joint spaces preserved. Soft tissues unremarkable. XR/XR hand RT min 3V IMPRESSION: NO ACUTE BONY INJURY. Impression dictated by: Wero Dupont M.D. 05/30/2025 5:46 PM Dictation Location: [place] [address] Electronically authenticated by: [id number] Date: 05/30/2025 17:46
--- NOTE | 2025-05-30 17:03 | ED.EXTPRO1 ---
HPI - Extremity Problem General Chief complaint: Extremity Problem, Nontraumatic Stated complaint: R HAND PAIN Time Seen by Provider: 05/30/25 16:34 Source: patient Mode of arrival: walk-in Limitations: no limitations History of Present Illness HPI Narrative: 64-year-old female presents here with a chief complaint of right little finger tenderness with occasional catching. She also has fifth metacarpal tenderness occasionally. She states she has a dull ache in this area. 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 There is no obvious deformity noted. No swelling. She does describe a trigger finger. She is a type II diabetic. Denies any other known injury or trauma. States has been hurting for the past week. Related Data Home Medications ?Medication ?Instructions ?Recorded ?Confirmed amlodipine 5 mg tablet 5 mg PO DAILY 01/11/23 01/11/23 atorvastatin 40 mg tablet 40 mg PO DAILY 01/11/23 10/30/23 benazepril 40 mg tablet 40 mg PO DAILY 01/11/23 01/11/23 hydrochlorothiazide 25 mg tablet 25 mg PO DAILY 01/11/23 01/11/23 letrozole 2.5 mg tablet 2.5 mg PO Q24H 01/11/23 10/30/23 Previous Rx's ?Medication ?Instructions ?Recorded diclofenac potassium 50 mg tablet 50 mg PO Q12H PRN pain #20 tabs 02/16/25 methocarbamol 500 mg tablet 500 mg PO Q8H spasm #20 tabs 02/16/25 prednisone 20 mg tablet 20 mg PO DAILY 5 days #5 tabs 05/30/25 Allergies Allergy/AdvReac Type Severity Reaction Status Date / Time Sulfa (Sulfonamide Allergy Hives Verified 05/30/25 16:32 Antibiotics) Review of Systems ROS Status of ROS 10 or more systems reviewed and unremarkable except as noted in history and below [facility] Medical History (Updated 05/30/25 @ 17:00 by Chiara Garcia) Seasonal allergic rhinitis ?J30.2 - Other seasonal allergic rhinitis (ICD-10) Pulmonary nodule ?R91.1 - Solitary pulmonary nodule (ICD-10) Back pain ?M54.9 - Dorsalgia, unspecified (ICD-10) Breast cancer ?C50.919 - Malignant neoplasm of unspecified site of unspecified female breast (ICD-10) Migraine ?G43.909 - Migraine, unspecified, not intractable, without status migrainosus (ICD-10) High cholesterol ?E78.00 - Pure hypercholesterolemia, unspecified (ICD-10) Hypertension ?I10 - Essential (primary) hypertension (ICD-10) Prediabetes ?R73.03 - Prediabetes (ICD-10) Surgical History (Updated 01/02/23 @ 11:53 by Alaina Granados NP) History of section ?Z98.891 - History of uterine scar from previous surgery (ICD-10) History of tonsillectomy ?Z90.89 - Acquired absence of other organs (ICD-10) History of ankle surgery (06/04/19) ?Z98.890 - Other specified postprocedural states (ICD-10) History of breast biopsy ?Z98.890 - Other specified postprocedural states (ICD-10) History of breast surgery (02/22/21) ?Z98.890 - Other specified postprocedural states (ICD-10) H/O breast surgery ?Z98.890 - Other specified postprocedural states (ICD-10) Family History (Updated 01/02/23 @ 11:49 by Alaina Granados NP) Other Family history of breast cancer Family history of colon cancer Family history of diabetes mellitus Family history of hypertension Family history of myocardial infarction Social History Within the past year, how often did you have a drink containing alcohol: monthly or less Smoking status: Never smoker Non-prescribed substance use: denies use Highest level of school completed/degree received: high school graduate Little interest or pleasure in doing things: not at all Feeling down, depressed, or hopeless: not at all Exam Narrative Exam Narrative: All Systems are negative except as noted/marked.All systems reviewed and otherwise negative Nurses note and vital signs reviewed and patient is not hypoxic. General: The patient appears well and in no apparent distress. Patient is resting comfortably on cart. Skin: Warm, dry, no pallor noted. There is no rash noted. Head: Normocephalic, atraumatic Eye: Normal conjunctiva, no drainage, EOMI. PERRL Ears, Nose, Mouth, and Throat: oral mucosa is moist. Nares patent. Mouth without vesicles. Ear canals patent. Tm's without Erythema Cardiovascular: Regular Rate and Rhythm Respiratory: Patient is in no distress, no accessory muscle use, lungs are clear to auscultation, no wheezing, rales or rhonchi Musculoskeletal: Right little finger tenderness, full range of motion, no obvious trigger finger on examination, the patient has no evidence of calf tenderness, no pitting edema, symmetrical pulses noted bilaterally Neurological: A&O x4, normal speech Psychiatric: Cooperative Constitutional Vital Signs, click to edit/add: Last Vital Signs Temp 98.5 F 05/30/25 16:28 Pulse 107 H 05/30/25 16:28 Resp 20 05/30/25 16:28 BP 173/73 H 05/30/25 17:18 Pulse Ox 96 05/30/25 16:28 O2 Del Method Room Air 05/30/25 16:28 Course Vital Signs Vital signs: Vital Signs Temperature 98.5 F 05/30/25 16:28 Pulse Rate 107 H 05/30/25 16:28 Respiratory Rate 20 05/30/25 16:28 Blood Pressure 183/75 H 05/30/25 16:28 Pulse Oximetry 96 05/30/25 16:28 Oxygen Delivery Method Room Air 05/30/25 16:28 Temperature 98.5 F 05/30/25 16:28 Pulse Rate 107 H 05/30/25 16:28 Respiratory Rate 20 05/30/25 16:28 Blood Pressure 173/73 H 05/30/25 17:18 Pulse Oximetry 96 05/30/25 16:28 Oxygen Delivery Method Room Air 05/30/25 16:28 MDM - Extremity (Nontraumatic) MDM Narrative Medical decision making narrative: 64-year-old female presents here with a chief complaint of right little finger tenderness with occasional catching. She also has fifth metacarpal tenderness occasionally. She states she has a dull ache in this area. 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 There is no obvious deformity noted. No swelling. She does describe a trigger finger. She is a type II diabetic. Denies any other known injury or trauma. States has been hurting for the past week. Patient presented with right 4th and 5th digit tenderness. Denies numbness or tingling. No swelling no obvious deformity x-ray shows no acute deformity. Patient be treated as a finger sprain and told to kyle tape the 4th and 5th digits. 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 Patient encouraged to use rest ice and elevation follow-up with orthopedics given a small prescription for prednisone. Follow-up as indicated with orthopedics. Patient agrees with plan of care. No questions at discharge Discharge Plan Discharge Chief Complaint: Extremity Problem, Nontraumatic Clinical Impression: Finger sprain Patient Disposition: Home, Self-Care Time of Disposition Decision: 18:00 Condition: Good Mode of Transportation: Private Vehicle Prescriptions / Home Meds: New prednisone 20 mg tablet 20 mg PO DAILY 5 Days Qty: 5 0RF No Action methocarbamol 500 mg tablet 500 mg PO Q8H Qty: 20 0RF diclofenac potassium 50 mg tablet 50 mg PO Q12H PRN (Reason: pain) Qty: 20 0RF atorvastatin 40 mg tablet 40 mg PO DAILY amlodipine 5 mg tablet 5 mg PO DAILY letrozole 2.5 mg tablet 2.5 mg PO Q24H benazepril 40 mg tablet 40 mg PO DAILY hydrochlorothiazide 25 mg tablet 25 mg PO DAILY Print Language: Georgian Instructions: Finger Sprain (ED), P.R.I.C.E. Treatment (ED) Additional Instructions: Follow up with Orthopedic DR and return to ER for any problems or concerns Referrals: Singh Crowley DO [Primary Care Provider, Internal Medicine] - 1 week Celestine Pham DO [Physician, Orthopedics] - 1 week Discharge Date/Time: 05/30/25 17:20
[2025-05-30 17:18] VITALS: BP 173/73
--- NOTE | 2025-05-30 17:18 | PC.NURSE ---
pt aware of HTN and takes meds for this. States her and her PCP are working on adjusting her BP meds at this time.
== END 2025-05-30 17:20 | disposition home or self-care (01) ==
PROVIDERS: Emergency Provider Emergency Medicine; PCP Internal Medicine
DX: S63.616A Unspecified sprain of right little finger, initial encounter (principal); X58.XXXA Exposure to other specified factors, initial encounter; E11.9 Type 2 diabetes mellitus without complications
CPT/HCPCS: 73130; 99283